=== PATIENT | male | born 1970 | race American Indian/Alaskan Native ===

== ENCOUNTER 2016-11-06 10:57 | Emergency (ER) | payer MEDICAID, OTHER ==
[2016-11-06] MEDS ORDERED: Sodium Chloride 0.9% 10 ML Syringe FLUSH PRN (11:35)
[2016-11-06] MEDS ORDERED: LORazepam 2 MG/ML MDV IVPUSH ONE (11:36)
--- NOTE | 2016-11-06 12:40 | EDM.PDOC ---
ED HPI HEAD INJURY - General Chief Complaint: Head Injury Stated Complaint: [facility] Time Seen by Provider: 11/06/16 11:19 Source of Information: Reports: Patient History Limitations: Reports: No limitations - History of Present Illness INITIAL COMMENTS - FREE TEXT/NARRATIVE: Patient is a 46-year-old male with a history of epilepsy who presents to the ED via ambulance with concerns of having 2 seizures this morning. First seizure occurred this morning while on the toilet. He describes the seizure as left- sided becomes rigid and right-sided shakes. Says it lasts only for a few minutes. He is a completely alert when this occurs. A second seizure occurred while the patient was wheeling himself back to his room via wheelchair and had a similar episode that lasted only for a few seconds. Patient did fall out of his wheelchair bumping the right lateral aspect of his forehead and scraping up his knees anteriorly. Patient again was alert throughout occurrence and really has no complaints at this time except small abrasions to knees and forehead. 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 When reviewing his chart it was actually a traumatic brain injury with intracranial hemorrhage. He has been a resident of the retirement for a approximately 1.5 year and receiving OT and PT. He has chronic pain and had just received the narcotic pain medication this morning prior to seizure. Patient denies fever/chills, SOB, Chest pain, N/V, headache, abdominal pain, or any additional complaints. States he has been having intermittent pain with urination. Past history: Traumatic brain injury, left-sided deficit, fusion lumbar spine, hypertension, epilepsy, chronic pain, low back pain, spondylosis, consultation, anemia, MRSA, left eye blurriness per patient,and hx of tuberculosis. MEDICATIONS:He is not on any anticoagulants. Takes keppra 500 mg twice a day, mirtazapine 30 mg at bedtime, metoprolol tartrate 25 mg twice a day, levalbuterol, baclofen 10 mg 3 times a day. He is on numerous OTC medications. 11/06/16 13:41 Timing/Duration: Reports: Constant Location: Reports: frontal (right forehead/superficial abrasion/minimal pain) Severity: mild Place of Occurrence: home Improves with: none Worsens with: none Context: Reports: fall (2nd to seizure) Associated Symptoms: Reports: seizure (Per patient), visual changes (blurred vision left eye chronic no new changes per patient). 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 (see below) (None stated) - Related Data Allergies/ADRs: Allergies Allergy/AdvReac Type Severity Reaction Status Date / Time No Known Allergies Allergy Verified 11/06/16 11:09 Home Meds: Home Meds Acetaminophen 650 mg PO Q6H PRN 12/17/15 [History] Baclofen 10 mg PO TID PRN 12/17/15 [History] Beta-Carotene [Beta Carotene] 2.5 tab PO DAILY 12/17/15 [History] Famotidine 40 mg PO DAILY 12/17/15 [History] Folic Acid 1 mg PO DAILY 12/17/15 [History] Lactobacillus Acidophilus [Acidophilus Lactobacillus] 1 each PO DAILY 12/17/15 [ History] Levalbuterol HCl 0.63 mg IH Q6H PRN 12/17/15 [History] Loperamide HCl [Loperamide] 2 mg PO 6XDAY PRN 12/17/15 [History] Metoprolol Tartrate 25 mg PO BID 12/17/15 [History] Mirtazapine 30 mg PO BEDTIME 12/17/15 [History] Sodium Bicarbonate 1,300 mg PO DAILY 12/17/15 [History] Sodium Chloride 2 gm PO BID 12/17/15 [History] Thiamine HCl [Vitamin B-1] 100 mg PO DAILY 12/17/15 [History] Triamcinolone Acetonide [Triamcinolone Acetonide 0.1% Crm] 1 applic TRDERM BID PRN 12/17/15 [History] levETIRAcetam [Keppra] 500 mg PO BID 12/17/15 [History] oxyCODONE 5 mg PO Q6H PRN 12/17/15 [History] Sennosides/Docusate Sodium [Senna Plus Tablet] 2 tab PO DAILY 11/06/16 [History] Past Medical History Cardiovascular History: Reports: Hypertension Genitourinary History: Reports: Urinary incontinence Musculoskeletal History: Reports: Other (see below) Other Musculoskeletal History: Hemiplegia Neurological History: Reports: Brain injury, CVA, Seizure, Other (see below) Other Neuro History: spinal fusion Psychiatric History: Reports: Addiction Other Endocrine/Metabolic History: hx of MRSA Hematologic History: Reports: Other (see below) Other Hematologic History: Hyponatremia - Infectious Disease History Infectious Disease History: Reports: C-difficile, Other (see below) Other Infectious Disease History: TB reactor Social & Family History - Family History Family Medical History: Noncontributory - Tobacco Use Smoking Status *Q: Never Smoker - Caffeine Use Caffeine Use: Reports: None - Recreational Drug Use Recreational Drug Use: No ED ROS GENERAL - Review of Systems Review Of Systems: See Below Constitutional: Denies: fever, chills, malaise, decreased appetite HEENT: Denies: Ear pain, Sinus problem, Throat pain, Vision change Respiratory: Denies: Shortness of Breath, Cough, Sputum Cardiovascular: Denies: Chest pain, Dyspnea on exertion, Orthopnea, Palpitations , PND, Syncope GI/Abdominal: Denies: Abdominal pain, Black stool, Bloody stool, Constipation, Diarrhea, Hematemesis, Nausea, Vomiting : Reports: dysuria (Intermittent). Denies: discharge, flank pain, frequency, hematuria, urgency Musculoskeletal: Reports: other (Superficial abrasions to the knees bilaterally with no pain/swelling) Neurological: Reports: Pre-Existing Deficit, Seizure (X2 per patient), Difficulty Walking (Pre-existing secondary to stroke in 2015 leaving him with left sided weakness). Denies: Confusion, Dizziness, Headache, Numbness, Paresthesia, Tingling, Trouble Speaking, Change in Speech ED EXAM, HEAD INJURY - Physical Exam Exam: See Below Exam Limited By: No limitations General Appearance: alert, WD/WN, no apparent distress Head: facial abrasions (Right forehead small superficial abrasion, minimal swelling no pain with palpation no bony antibiotics noted) Nexus Criteria: focal neurological deficit. No: posterior, midline cervical tenderness, evidence of intoxication, altered level of consciousness, painful distracting injuries Eyes: bilateral eye: EOMI, PERRL (aniscoria present left>right), vision changes (blurred vision to left eye, chronic, no new changes) Ears: normal external exam, hearing grossly normal Nose: normal inspection Throat/Mouth: Normal inspection, Normal oropharynx, Normal voice, No airway compromise Neck: non-tender, full range of motion, normal alignment, normal inspection Respiratory: no respiratory distress, lungs clear, normal breath sounds, no accessory muscle use, chest non-tender Cardiovascular: normal peripheral pulses, regular rate, rhythm GI/Abdominal Exam (Abbreviated): normal bowel sounds, soft, non tender, no organomegaly, no distention Back Exam: normal inspection, full range of motion. No: paraspinal tenderness, vertebral tenderness Extremities: pelvis stable, other (superficial abrasions to the right/left knee bilaterally. ). No: bony-point tenderness (with examination of upper/lower portion of the body. ), joint effusion, pain with movement, pedal edema, tenderness, unable to bear weight Neurologic: no motor/sensory deficits (no sensory), alert, normal mood/affect, oriented x 3, facial droop (Chronic no new changes), motor weakness (right>left , previous deficit from CVA 2014, no changes currently) Skin: Normal color, Warm/dry Course - Vital Signs Last Recorded V/S: Last Vital Signs Temp 98.5 F 11/06/16 11:05 Pulse 100 11/06/16 14:36 Resp 16 11/06/16 14:36 BP 134/93 H 11/06/16 14:36 Pulse Ox 94 L 11/06/16 14:36 - Orders/Labs/Meds Orders: Active Orders 24 hr Category Date Time Status Peripheral IV Care [RC] . DIRECTED Care 11/06/16 11:36 Active CULTURE URINE [RM] Stat Lab 11/06/16 13:47 Ordered KEPPRA [REF] Stat Lab 11/06/16 12:51 Received Sodium Chloride 0.9% [Saline Flush] Med 11/06/16 11:35 Active 10 ml FLUSH ASDIRECTED PRN Peripheral IV Insertion Adult [OM.PC] Stat Oth 11/06/16 11:36 Ordered Medication Orders Sodium Chloride (Saline Flush) 10 ml FLUSH ASDIRECTED PRN PRN Reason: Keep Vein Open Last Admin: 11/06/16 12:00 Dose: 10 ml Labs: Laboratory Tests 11/06/16 11/06/16 11/06/16 Range/Units 11:30 12:51 12:51 WBC 9.29 H (4.23-9.07) K/mm3 RBC 5.23 (4.63-6.08) M/mm3 Hgb 12.6 L (13.7-17.5) gm/L Hct 39.4 L (40.1-51.0) % MCV 75.3 L (79.0-92.2) fl MCH 24.1 L (25.7-32.2) pg MCHC 32.0 L (32.2-35.5) g/dl RDW Std Deviation 39.3 (35.1-43.9) fL Plt Count 210 (163-337) K/mm3 MPV 10.7 (9.4-12.3) fl Neut % (Auto) 81.3 H (34.0-67.9) % Lymph % (Auto) 9.3 L (21.8-53.1) % [place] % (Auto) 8.6 (5.3-12.2) % Eos % (Auto) 0.4 L (0.8-7.0) Baso % (Auto) 0.2 (0.1-1.2) % Neut # (Auto) 7.55 H (1.78-5.38) K/mm3 Lymph # (Auto) 0.86 L (1.32-3.57) K/mm3 [place] # (Auto) 0.80 (0.30-0.82) K/mm3 Eos # (Auto) 0.04 (0.04-0.54) K/mm3 Baso # (Auto) 0.02 (0.01-0.08) K/mm3 Manual Slide Review Abnormal smear Sodium 136 (136-145) mEq/L Potassium 4.0 (3.5-5.1) mEq/L Chloride 103 (98-107) mEq/L Carbon Dioxide 25 (21-32) mEq/L Anion Gap 12.0 (5-15) BUN 12 (7-18) mg/dL Creatinine 0.8 (0.7-1.3) mg/dL Est Cr Clr Drug Dosing 114.00 mL/min Estimated GFR (MDRD) > 60 (>60) mL/min BUN/Creatinine Ratio 15.0 (14-18) Glucose 108 H (74-106) mg/dL Calcium 8.7 (8.5-10.1) mg/dL Total Bilirubin 0.3 (0.2-1.0) mg/dL AST 21 (15-37) U/L ALT 21 (16-63) U/L Alkaline Phosphatase 114 (46-116) U/L Total Protein 7.0 (6.4-8.2) g/dl Albumin 3.5 (3.4-5.0) g/dl Globulin 3.5 gm/dL Albumin/Globulin Ratio 1.0 (1-2) Urine Color Yellow (Yellow) Urine Appearance Clear (Clear) Urine pH 6.5 (5.0-8.0) Ur Specific [place] 1.025 (1.005-1.030) Urine Protein 2+ H (Negative) Urine Glucose (UA) Negative (Negative) Urine Ketones Negative (Negative) Urine Occult Blood Negative (Negative) Urine Nitrite Negative (Negative) Urine Bilirubin Negative (Negative) Urine Urobilinogen 0.2 (0.2-1.0) Ur Leukocyte Esterase Negative (Negative) Urine RBC 0-5 (0-5) /hpf Urine WBC 0-5 (0-5) /hpf Ur Epithelial Cells Not Reportable Ur Squamous Epith Cells 0-5 (0-5) /hpf Urine Bacteria Moderate H (FEW) /hpf Urine Mucus Moderate H (FEW) /hpf Meds: Medications Generic Name Dose Route Start Last Admin Trade Name Freq PRN Reason Stop Dose Admin Sodium Chloride 10 ml 11/06/16 11:35 11/06/16 12:00 Saline Flush FLUSH 10 ml ASDIRECTED PRN Administration Keep Vein Open Discontinued Medications Generic Name Dose Route Start Last Admin Trade Name Freq PRN Reason Stop Dose Admin Lorazepam 0.5 mg 11/06/16 11:36 11/06/16 11:55 Ativan IVPUSH 11/06/16 11:37 0.5 mg ONETIME ONE Administration - Re-Assessments/Exams Free Text/Narrative Re-Assessment/Exam: Ordered CBC, C14, and UA. Labs reviewed with no concerning findings. Will obtain urine culture with moderate bacteria and mucus present. Ordered Keppra level . This is a send out and thus we'll reviewed by PCP on followup visit. Will discharge patient home with instructions to treat superficial abrasions. No changes in his medication list will be made at this time. The patient to see her PCP in the next week with reevaluation. Patient has had no seizures while he ED. Departure - Departure Time of Disposition: 13:50 Disposition: Home, Self-Care 01 Condition: good Clinical Impression: Seizures, Abrasions of multiple sites Head contusion Qualifiers: Encounter type: initial encounter Contusion of head detail: other part of head Qualified Code(s): S00.83XA - Contusion of other part of head, initial encounter Instructions: Facial or Scalp Contusion, [id number] Referrals: Bill Reed MD [Primary Care Provider] - Forms: ED Department Discharge Additional Instructions: Abrasions should be cleaned twice daily with soap and water, pat dry, reapply bacitracin ointment. Head contusion will subside over the next few days. Can apply ice to affected area, 4 times daily, do not apply directly on the skin. Patient should followup with PCP within the next week. Keppra level was obtained. This is a send out and should be available in the next 5 days. Return to the E.D. if he has status epilepticus, change in mentation, fever, n/v, or other neurological complaints. - My Orders Last 24 Hours: My Active Orders 11/06/16 11:35 Sodium Chloride 0.9% [Saline Flush] 10 ml FLUSH ASDIRECTED PRN 11/06/16 11:36 Peripheral IV Care [RC] . DIRECTED Peripheral IV Insertion Adult [OM.PC] Stat 11/06/16 12:51 KEPPRA [REF] Stat 11/06/16 13:47 CULTURE URINE [RM] Stat - Assessment/Plan Last 24 Hours: My Active Orders 11/06/16 11:35 Sodium Chloride 0.9% [Saline Flush] 10 ml FLUSH ASDIRECTED PRN 11/06/16 11:36 Peripheral IV Care [RC] . DIRECTED Peripheral IV Insertion Adult [OM.PC] Stat 11/06/16 12:51 KEPPRA [REF] Stat 11/06/16 13:47 CULTURE URINE [RM] Stat
[2016-11-06 14:38] VITALS: BP 134/93
== END 2016-11-06 14:30 | disposition home or self-care (01) ==
LOC: JD.ED 10:57
DX: G40.909 Epilepsy, unspecified, not intractable, without status epilepticus (principal); S00.83XA Contusion of other part of head, initial encounter; S80.212A Abrasion, left knee, initial encounter; S80.211A Abrasion, right knee, initial encounter; I10 Essential (primary) hypertension; Z86.73 Personal history of transient ischemic attack (TIA), and cerebral infarction without residual deficits; Z86.2 Personal history of diseases of the blood and blood-forming organs and certain disorders involving the immune mechanism; Z79.899 Other long term (current) drug therapy; W05.0XXA Fall from non-moving wheelchair, initial encounter
CPT/HCPCS: 36415; 80053; 80177; 81001; 85025; 87086; 96374; 99284; J2060; J7050; 99285-25

== ENCOUNTER 2018-03-13 02:57 | Inpatient (IN) | payer MEDICAID ==
[2018-03-13] MEDS ORDERED: LORazepam 2 MG/ML SDV ONE ×2 (03:04→03:15)
[2018-03-13] MEDS ORDERED: LORazepam 2 MG/ML SDV IVPUSH ONE (03:05)
[2018-03-13] MEDS ORDERED: Lidocaine 1% with EPINEPHrine 1:100,000 20 ML MDV ONE (04:50)
[2018-03-13] MEDS ORDERED: Lidocaine 1% with EPINEPHrine 1:100,000 20 ML MDV INJECT ONE (05:01)
[2018-03-13] MEDS ORDERED: Diphtheria,Pertussis(Acell),Tetanus Vaccine 0.5 ML SDV IM ONE (05:05)
[2018-03-13] MEDS ORDERED: Acetaminophen/HYDROcodone 325-5 MG Tab PO PRN (08:32)
[2018-03-13] MEDS ORDERED: Polyethylene Glycol 3350 Powder 17 GM Packet PO PRN (08:32)
[2018-03-13] MEDS ORDERED: hydrALAZINE 20 MG/ML SDV IVPUSH PRN (08:32)
[2018-03-13] MEDS ORDERED: Promethazine 12.5 MG in Sodium Chloride 0.9% 50 ML IV PRN (08:32)
[2018-03-13] MEDS ORDERED: Bisacodyl 5 MG Tab PO PRN (08:32)
[2018-03-13] MEDS ORDERED: Docusate Sodium 100 MG Cap PO PRN (08:32)
[2018-03-13] MEDS ORDERED: LORazepam 2 MG/ML SDV IVPUSH PRN (08:32)
[2018-03-13] MEDS ORDERED: Acetaminophen 325 MG Tab PO PRN (08:32)
[2018-03-13] MEDS ORDERED: Magnesium Hydroxide 400 MG/5 ML Susp 30 ML Cup PO PRN (08:32)
[2018-03-13] MEDS ORDERED: Ondansetron 4 MG/2 ML SDV IV PRN (08:32)
[2018-03-13] MEDS ORDERED: Albuterol/Ipratropium 3.0-0.5 MG/3 ML Neb Soln NEB PRN (08:32)
[2018-03-13] MEDS ORDERED: LORazepam 2 MG/ML SDV IV PRN (08:32)
[2018-03-13] MEDS ORDERED: HYDROmorphone 0.5 MG/0.5 ML Syringe IVPUSH PRN (08:32)
[2018-03-13] MEDS ORDERED: Metoprolol Tartrate 5 MG/5 ML SDV IVPUSH PRN (08:32)
[2018-03-13] MEDS ORDERED: Nicotine 21 MG/24 Hr Patch TRDERM PRN (09:00)
--- NOTE | 2018-03-13 10:01 | PCM.HP ---
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 He apparently had an unwitnessed seizure and fell, suffering several lacerations to his face. He does have a history of brain injury and seizure disorder. CT scan of the head and spine was ordered in the ER, which showed no new findings and no acute abnormalities, other than possible recent loss of tooth. Lacerations were sutured in the ER. Patient states it has been "a long while" since his last seizure. He says he took his seizure medications the evening prior to the event but that he vomited them up. He says he thinks he was given more medication afterwards. He is unable to state what medications he is taking. He is a poor historian due to confusion, being in post-ictal state and having history of brain injury. He understands that he has a seizure disorder and brain injury but is unable to elaborate further. It is unknown whether or not he lost consciousness. He is being admitted for further management of his seizure disorder following acute epileptic event. Onset of Symptoms: Reports: Today Symptom Onset Date: 03/13/18 Duration of Symptoms: Reports: Hour(s): Location: Reports: Head, Face Severity: Mild (Currently reports only mild headache) Associated Symptoms: Reports: Headaches Headache Pain Score (Numeric/FACES): 5 - Related Data Allergies/Adverse Reactions: Allergies Allergy/AdvReac Type Severity Reaction Status Date / Time No Known Allergies Allergy Verified 03/13/18 10:26 Home Medications: Home Meds Acetaminophen 650 mg PO BID 12/17/15 [History] Baclofen 10 mg PO DAILY 12/17/15 [History] Folic Acid 1 mg PO DAILY 12/17/15 [History] Lactobacillus Acidophilus [Acidophilus Lactobacillus] 1 each PO DAILY 12/17/15 [ History] Loperamide HCl [Loperamide] 2 mg PO 6XDAY PRN 12/17/15 [History] Metoprolol Tartrate 25 mg PO BID 12/17/15 [History] Mirtazapine 30 mg PO BEDTIME 12/17/15 [History] Sodium Chloride 2 gm PO BID 12/17/15 [History] levETIRAcetam [Keppra] 500 mg PO BID 12/17/15 [History] oxyCODONE 5 mg PO DAILY 12/17/15 [History] Sennosides/Docusate Sodium [Senna Plus Tablet] 2 tab PO DAILY 11/06/16 [History] Calcium Carbonate/Vitamin D3 [Calcium Carb 500 MG] 1,250 mg PO DAILY 03/13/18 [ History] Escitalopram [Lexapro] 10 mg PO DAILY 03/13/18 [History] Polyethylene Glycol 3350 [MiraLAX] 17 gm PO DAILY 03/13/18 [History] amLODIPine Besylate [Norvasc] 2.5 mg PO DAILY 03/13/18 [History] atorvaSTATin [Lipitor] 10 mg PO BEDTIME 03/13/18 [History] Past Medical History Cardiovascular History: Reports: Hypertension Genitourinary History: Reports: Urinary Incontinence Musculoskeletal History: Reports: Back Pain, Chronic, Other (See Below) Other Musculoskeletal History: Hemiplegia Neurological History: Reports: Brain Injury, CVA, Seizure, Other (See Below) Other Neuro History: spinal fusion Psychiatric History: Reports: Addiction, Other (See Below) Other Psychiatric History: alcohol dependence Other Endocrine/Metabolic History: hx of MRSA Hematologic History: Reports: Other (See Below) Other Hematologic History: Hyponatremia - Infectious Disease History Infectious Disease History: Reports: C-Difficile, MRSA, TB, Other (See Below) Other Infectious Disease History: MRSA to axilla, groin, nasal in 12/18/2014 based on documents from [place] - Past Surgical History Neurological Surgical History: Reports: C-Spine, Laminectomy, Lumbar Spine, Other (See Below) Other Neurological Surgeries/Procedures: spondylolysis Social & Family History - Family History Family Medical History: Noncontributory - Tobacco Use Smoking Status *Q: Former Smoker Used Tobacco, but Quit: Yes Month/Year Tobacco Last Used: 3 years - Caffeine Use Caffeine Use: Reports: None - Recreational Drug Use Recreational Drug Use: No H&P Review of Systems - Review of Systems: Review Of Systems: See Below General: Reports: No Symptoms HEENT: Reports: Headaches Pulmonary: Reports: No Symptoms Cardiovascular: Reports: No Symptoms Gastrointestinal: Reports: Vomiting (reports episode of vomiting yesterday) Genitourinary: Reports: No Symptoms Musculoskeletal: Reports: No Symptoms Skin: Reports: Wound (multiple facial lacerations) Psychiatric: Reports: Confusion Neurological: Reports: Confusion (post-ictal, hx of TBI), Headache, Pre- Existing Deficit (hx of TBI), Seizure Hematologic/Lymphatic: Reports: No Symptoms Immunologic: Reports: No Symptoms Review of Systems Comment:: Patient reports he feels well and has no symptoms other than a mild headache and some tenderness of facial lacerations. He reports an episode of vomiting yesterday evening but has not felt nausea or experienced vomiting since then. He had a seizure and fall last night. He reports no other symptoms or pain. Exam - Exam Exam: See Below - Vital Signs Vital Signs: Last Vital Signs Temp 98.0 F 03/13/18 09:51 Pulse 105 H 03/13/18 03:00 Resp 18 03/13/18 09:51 BP 132/89 03/13/18 09:51 Pulse Ox 95 03/13/18 09:51 Weight: 92.442 kg - Exam Quality Assessment: Supplemental Oxygen General: Alert, Cooperative HEENT: Conjunctiva Clear, EOMI, Hearing Intact, Nares Patent, Abnormal Pupils Neck: Supple Lungs: Clear to Auscultation, Normal Respiratory Effort Cardiovascular: Regular Rate, Regular Rhythm GI/Abdominal Exam: Normal Bowel Sounds, Soft, Non-Tender (Male) Exam: Deferred Rectal (Males) Exam: Deferred Extremities: Normal Inspection, Non-Tender, No Pedal Edema Peripheral Pulses: 2+: Radial (L), Radial (R), Posterior Tibial (L), Posterior Tibial (R) Skin: Warm, Dry, Intact, Wound (facial lacerations) Neurological: Other (left-sided hemiparesis from prior TBI) Psychiatric: Normal Affect, Normal Mood, Other (confusion, post-ictal, hx of TBI ) Physical Exam Comments:: Patient is pleasant and cooperative but somewhat confused, likely a chronic issue due to past history of TBI, exacerbated by post-ictal state. He has a forehead laceration, which is covered by a bandage, and lacerations on his nose and upper lip, which have been sutured. He has left-sided hemiparesis, unequal pupils, and a deviated septum, all chronic problems. No other abnormalities found upon exam. - Patient Data Lab Results Last 24 hrs: Laboratory Results - last 24 hr 03/13/18 03/13/18 Range/Units 03:29 03:29 WBC 5.62 (4.23-9.07) K/mm3 RBC 5.77 (4.63-6.08) M/mm3 Hgb 16.1 (13.7-17.5) gm/L Hct 49.2 (40.1-51.0) % MCV 85.3 (79.0-92.2) fl MCH 27.9 (25.7-32.2) pg MCHC 32.7 (32.2-35.5) g/dl RDW Std Deviation 41.3 (35.1-43.9) fL Plt Count 160 L (163-337) K/mm3 MPV 10.7 (9.4-12.3) fl Neutrophils % (Manual) 66 H (40-60) % Band Neutrophils % 0 (0-10) % Lymphocytes % (Manual) 24 (20-40) % Atypical Lymphs % 0 % Monocytes % (Manual) 10 (2-10) % Eosinophils % (Manual) 0 L (0.8-7.0) % Basophils % (Manual) 0 L (0.2-1.2) Platelet Estimate Adequate Plt Morphology Comment Normal RBC Morph Comment Normal Sodium 145 (136-145) mEq/L Potassium 3.6 (3.5-5.1) mEq/L Chloride 108 H (98-107) mEq/L Carbon Dioxide 22 (21-32) mEq/L Anion Gap 18.6 H (5-15) BUN 13 (7-18) mg/dL Creatinine 1.1 (0.7-1.3) mg/dL Est Cr Clr Drug Dosing 82.05 mL/min Estimated GFR (MDRD) > 60 (>60) mL/min BUN/Creatinine Ratio 11.8 L (14-18) Glucose 128 H (74-106) mg/dL Calcium 8.7 (8.5-10.1) mg/dL Total Bilirubin 0.3 (0.2-1.0) mg/dL AST 25 (15-37) U/L ALT 24 (16-63) U/L Alkaline Phosphatase 113 (46-116) U/L Total Protein 7.5 (6.4-8.2) g/dl Albumin 3.8 (3.4-5.0) g/dl Globulin 3.7 gm/dL Albumin/Globulin Ratio 1.0 (1-2) Result Diagrams: 03/13/18 03:29 03/13/18 03:29 - Problem List (1) Seizures SNOMED Code(s): 93969988 ICD Code: R56.9 - UNSPECIFIED CONVULSIONS Status: Acute Current Visit: No (2) Abrasions of multiple sites SNOMED Code(s): 171563345, 306958528 ICD Code: T14.8 - OTHER INJURY OF UNSPECIFIED BODY REGION * DO NOT USE * Status: Acute Current Visit: No Problem List Initiated/Reviewed/Updated: Yes Orders Last 24hrs: Active Orders 24 hr Category Date Time Status Admission Status [Patient Status] [ADT] Routine ADT 03/13/18 06:50 Active Cardiac Monitoring [RC] CONTINUOUS Care 03/13/18 08:33 Active Height and Weight [RC] 04 Care 03/13/18 08:32 Active Intake and Output [RC] QSHIFT Care 03/13/18 08:33 Active Oxygen Therapy [RC] PRN Care 03/13/18 08:32 Active RT Aerosol Therapy [RC] ASDIRECTED Care 03/13/18 08:35 Active Up With Assistance [RC] ASDIRECTED Care 03/13/18 08:32 Active Up ad Jayna [RC] ASDIRECTED Care 03/13/18 08:32 Active VTE/DVT Education [RC] PER UNIT ROUTINE Care 03/13/18 08:32 Active Vaccines to be Administered [RC] PER UNIT ROUTINE Care 03/13/18 05:05 Active Vital Signs [RC] Q4HR Care 03/13/18 08:32 Active Regular Diet [DIET] Diet 03/13/18 Lunch Active Cervical Spine wo Cont [CT] Stat Exams 03/13/18 03:38 Taken Head wo Cont [CT] Stat Exams 03/13/18 03:38 Taken Max Facial Sinus wo Cont [CT] Stat Exams 03/13/18 03:38 Taken LEVETIRACETAM, S [REF] Stat Lab 03/13/18 03:29 Received Acetaminophen [Tylenol] Med 03/13/18 08:32 Active 650 mg PO Q4H PRN Acetaminophen/HYDROcodone [[place] 325-5 MG] Med 03/13/18 08:32 Active 1 tab PO Q4H PRN Albuterol/Ipratropium [DuoNeb 3.0-0.5 MG/3 ML] Med 03/13/18 08:32 Active 3 ml NEB Q4H PRN Bisacodyl [Dulcolax] Med 03/13/18 08:32 Active 5 mg PO DAILY PRN Docusate Sodium [Colace] Med 03/13/18 08:32 Active 100 mg PO BID PRN Docusate Sodium/Sennosides [Senna Plus] Med 03/13/18 08:32 Active 1 tab PO BID PRN Enoxaparin [Lovenox] Med 03/13/18 09:00 Active 40 mg SUBCUT DAILY HYDROmorphone [Dilaudid] Med 03/13/18 08:32 Active 0.5 mg IVPUSH Q2H PRN LORazepam [Ativan] Med 03/13/18 08:32 Active 1 mg IV Q6H PRN LORazepam [Ativan] Med 03/13/18 08:32 Active 2 mg IVPUSH Q4H PRN Magnesium Hydroxide [Milk of Magnesia] Med 03/13/18 08:32 Active 30 ml PO Q12H PRN Magnesium Rep Pharmacy to Dose [Pharmacy to Dose - Med 03/13/18 08:45 Active Magnesium Replacement] 0 dose .XX ASDIRECTED PRN Metoprolol Tartrate [Lopressor] Med 03/13/18 08:32 Active 5 mg IVPUSH Q4H PRN Nicotine [Habitrol] Med 03/13/18 09:00 Active 21 mg TRDERM DAILY PRN Ondansetron [Zofran] Med 03/13/18 08:32 Active 4 mg IV Q6H PRN Polyethylene Glycol 3350 [MiraLAX] Med 03/13/18 08:32 Active 17 gm PO DAILY PRN Potassium Chloride [Klor-Con M20] Med 03/13/18 09:00 Active 40 meq PO Q4H Potassium Rep Pharmacy to Dose [Pharmacy to Dose - Med 03/13/18 08:45 Active Potassium Replacement] 0 dose .XX ASDIRECTED PRN Promethazine [Phenergan] 12.5 mg Med 03/13/18 08:32 Active Sodium Chloride 0.9% [Normal Saline] 50 ml IV Q6H Remove Patch Med 03/14/18 09:00 Active 0 ea TRDERM DAILY Sodium Chloride 0.9% [Normal Saline] 1,000 ml Med 03/13/18 08:45 Active IV ASDIRECTED hydrALAZINE [Apresoline] Med 03/13/18 08:32 Active 20 mg IVPUSH Q4H PRN Resuscitation Status Routine Resus Stat 03/13/18 08:32 Ordered Medication Orders Acetaminophen (Tylenol) 650 mg PO Q4H PRN PRN Reason: Pain (Mild 1-3)/fever Hydrocodone Bitart/Acetaminophen ([place] 325-5 Mg) 1 tab PO Q4H PRN PRN Reason: Pain (moderate 4-6) Albuterol/Ipratropium (Duoneb 3.0-0.5 Mg/3 Ml) 3 ml NEB Q4H PRN PRN Reason: Shortness Of Breath/wheezing Bisacodyl (Dulcolax) 5 mg PO DAILY PRN PRN Reason: Constipation Docusate Sodium (Colace) 100 mg PO BID PRN PRN Reason: Constipation Enoxaparin Sodium (Lovenox) 40 mg SUBCUT DAILY DEVORA Hydralazine HCl (Apresoline) 20 mg IVPUSH Q4H PRN PRN Reason: Hypertension Hydromorphone HCl (Dilaudid) 0.5 mg IVPUSH Q2H PRN PRN Reason: Pain (severe 7-10) Promethazine HCl 12.5 mg/ (Sodium Chloride) 50.5 mls @ 100 mls/hr IV Q6H PRN PRN Reason: Nausea/Vomiting Sodium Chloride (Normal Saline) 1,000 mls @ 125 mls/hr IV ASDIRECTED DEVORA Lorazepam (Ativan) 2 mg IVPUSH Q4H PRN PRN Reason: Seizures Lorazepam (Ativan) 1 mg IV Q6H PRN PRN Reason: Anxiety Magnesium Hydroxide (Milk Of Magnesia) 30 ml PO Q12H PRN PRN Reason: Constipation Magnesium Sulfate (Pharmacy To Dose - Magnesium Replacement) 0 dose .XX ASDIRECTED PRN PRN Reason: RX TO WATCH MAG LEVELS Metoprolol Tartrate (Lopressor) 5 mg IVPUSH Q4H PRN PRN Reason: Tachycardia Miscellaneous Information (Remove Patch) 0 ea TRDERM DAILY [facility] Nicotine (Habitrol) 21 mg TRDERM DAILY PRN PRN Reason: Nicotine Dependence Ondansetron HCl (Zofran) 4 mg IV Q6H PRN PRN Reason: Nausea/Vomiting Polyethylene Glycol (Miralax) 17 gm PO DAILY PRN PRN Reason: Constipation Potassium Chloride (Pharmacy To Dose - Potassium Replacement) 0 dose .XX ASDIRECTED PRN PRN Reason: RX TO WATCH K LEVELS Potassium Chloride (Klor-Con M20) 40 meq PO Q4H DEVORA Stop: 03/13/18 13:01 Senna/Docusate Sodium (Senna Plus) 1 tab PO BID PRN PRN Reason: Constipation Assessment/Plan Comment:: Acute on Chronic - Seizure Disorder * Apparent seizure with fall/injury at [facility] facility early 03/13 * Event was unwitnessed - unknown if LOC * Prior history of seizure disorder and brain injury * Likely secondary to inadequate Keppra - inability to take medications * ER workup * Vitals - initial tachycardia and hypertension; now stable * Initial labs - elevated anion gap, reduced BUN/Cr ratio; mildly elevated glucose; no other abnormal findings * Head/spine CT showed no new abnormalities * Facial lacerations were sutured * dtap vaccine administered * Admitted to ICU for further management * IVF, supplemental O2, telemetry * Lorazepam for seizures * DVT prophylaxis enoxaparin * Screening to determine blood levels of Keppra pending * UA ordered to r/o UTI; drug and alcohol screening Status post-fall * Secondary to acute seizure * Multiple facial lacerations * Possible head injury r/o - CT was benign * Fall precautions Facial lacerations * Secondary to traumatic fall * Lacerations on forehead, nose, and upper lip * Received treatment in the emergency department * Continue wound care [place], [place]-3. Dr. Allan has examined the patient and reviewed the note. <Jailene Allan T - Last Filed: 03/13/18 17:35> H&P History of Present Illness - General Admit Problem/Dx: Admission Diagnosis/Problem Admission Diagnosis/Problem Seizure disorder Exam - Vital Signs Vital Signs: Last Vital Signs Temp 36.9 C 03/13/18 15:21 Pulse 105 H 03/13/18 03:00 Resp 14 03/13/18 15:21 BP 146/97 H 03/13/18 15:21 Pulse Ox 95 03/13/18 15:21 - Patient Data Lab Results Last 24 hrs: Laboratory Results - last 24 hr 03/13/18 03/13/18 03/13/18 Range/Units 03:18 03:29 03:29 WBC 5.62 (4.23-9.07) K/mm3 RBC 5.77 (4.63-6.08) M/mm3 Hgb 16.1 (13.7-17.5) gm/L Hct 49.2 (40.1-51.0) % MCV 85.3 (79.0-92.2) fl MCH 27.9 (25.7-32.2) pg MCHC 32.7 (32.2-35.5) g/dl RDW Std Deviation 41.3 (35.1-43.9) fL Plt Count 160 L (163-337) K/mm3 MPV 10.7 (9.4-12.3) fl Neutrophils % (Manual) 66 H (40-60) % Band Neutrophils % 0 (0-10) % Lymphocytes % (Manual) 24 (20-40) % Atypical Lymphs % 0 % Monocytes % (Manual) 10 (2-10) % Eosinophils % (Manual) 0 L (0.8-7.0) % Basophils % (Manual) 0 L (0.2-1.2) Platelet Estimate Adequate Plt Morphology Comment Normal RBC Morph Comment Normal Sodium 145 (136-145) mEq/L Potassium 3.6 (3.5-5.1) mEq/L Chloride 108 H (98-107) mEq/L Carbon Dioxide 22 (21-32) mEq/L Anion Gap 18.6 H (5-15) BUN 13 (7-18) mg/dL Creatinine 1.1 (0.7-1.3) mg/dL Est Cr Clr Drug Dosing 82.05 mL/min Estimated GFR (MDRD) > 60 (>60) mL/min BUN/Creatinine Ratio 11.8 L (14-18) Glucose 128 H (74-106) mg/dL Calcium 8.7 (8.5-10.1) mg/dL Total Bilirubin 0.3 (0.2-1.0) mg/dL AST 25 (15-37) U/L ALT 24 (16-63) U/L Alkaline Phosphatase 113 (46-116) U/L Total Protein 7.5 (6.4-8.2) g/dl Albumin 3.8 (3.4-5.0) g/dl Globulin 3.7 gm/dL Albumin/Globulin Ratio 1.0 (1-2) Urine Color (Yellow) Urine Appearance (Clear) Urine pH (5.0-8.0) Ur Specific [place] (1.005-1.030) Urine Protein (Negative) Urine Glucose (UA) (Negative) Urine Ketones (Negative) Urine Occult Blood (Negative) Urine Nitrite (Negative) Urine Bilirubin (Negative) Urine Urobilinogen (0.2-1.0) Ur Leukocyte Esterase (Negative) Urine RBC (0-5) /hpf Urine WBC (0-5) /hpf Ur Epithelial Cells (0-5) /hpf Urine Bacteria (FEW) /hpf Urine Mucus (FEW) /hpf Urine Opiates Screen (NEGATIVE) Ur Buprenorphine Scrn (NEGATIVE) Ur Oxycodone Screen (NEGATIVE) Urine Methadone Screen (NEGATIVE) Ur Propoxyphene Screen (NEGATIVE) Ur Barbiturates Screen (NEGATIVE) Ur Tricyclics Screen (NEGATIVE) Ur Phencyclidine Scrn (NEGATIVE) Ur Amphetamine Screen (NEGATIVE) U Methamphetamines Scrn (NEGATIVE) U Benzodiazepines Scrn (NEGATIVE) U Cocaine Metab Screen (NEGATIVE) U Marijuana (THC) Screen (NEGATIVE) Ethyl Alcohol 0.00 (0.00) gm% 03/13/18 03/13/18 Range/Units 15:00 15:00 WBC (4.23-9.07) K/mm3 RBC (4.63-6.08) M/mm3 Hgb (13.7-17.5) gm/L Hct (40.1-51.0) % MCV (79.0-92.2) fl MCH (25.7-32.2) pg MCHC (32.2-35.5) g/dl RDW Std Deviation (35.1-43.9) fL Plt Count (163-337) K/mm3 MPV (9.4-12.3) fl Neutrophils % (Manual) (40-60) % Band Neutrophils % (0-10) % Lymphocytes % (Manual) (20-40) % Atypical Lymphs % % Monocytes % (Manual) (2-10) % Eosinophils % (Manual) (0.8-7.0) % Basophils % (Manual) (0.2-1.2) Platelet Estimate Plt Morphology Comment RBC Morph Comment Sodium (136-145) mEq/L Potassium (3.5-5.1) mEq/L Chloride (98-107) mEq/L Carbon Dioxide (21-32) mEq/L Anion Gap (5-15) BUN (7-18) mg/dL Creatinine (0.7-1.3) mg/dL Est Cr Clr Drug Dosing mL/min Estimated GFR (MDRD) (>60) mL/min BUN/Creatinine Ratio (14-18) Glucose (74-106) mg/dL Calcium (8.5-10.1) mg/dL Total Bilirubin (0.2-1.0) mg/dL AST (15-37) U/L ALT (16-63) U/L Alkaline Phosphatase (46-116) U/L Total Protein (6.4-8.2) g/dl Albumin (3.4-5.0) g/dl Globulin gm/dL Albumin/Globulin Ratio (1-2) Urine Color Yellow (Yellow) Urine Appearance Clear (Clear) Urine pH 7.0 (5.0-8.0) Ur Specific [place] 1.025 (1.005-1.030) Urine Protein 2+ H (Negative) Urine Glucose (UA) 2+ H (Negative) Urine Ketones Negative (Negative) Urine Occult Blood Negative (Negative) Urine Nitrite Negative (Negative) Urine Bilirubin Negative (Negative) Urine Urobilinogen 0.2 (0.2-1.0) Ur Leukocyte Esterase Negative (Negative) Urine RBC Not seen (0-5) /hpf Urine WBC 0-5 (0-5) /hpf Ur Epithelial Cells 0-5 (0-5) /hpf Urine Bacteria Not seen (FEW) /hpf Urine Mucus Not seen (FEW) /hpf Urine Opiates Screen Negative (NEGATIVE) Ur Buprenorphine Scrn Negative (NEGATIVE) Ur Oxycodone Screen Negative (NEGATIVE) Urine Methadone Screen Negative (NEGATIVE) Ur Propoxyphene Screen Negative (NEGATIVE) Ur Barbiturates Screen Negative (NEGATIVE) Ur Tricyclics Screen Negative (NEGATIVE) Ur Phencyclidine Scrn Negative (NEGATIVE) Ur Amphetamine Screen Negative (NEGATIVE) U Methamphetamines Scrn Negative (NEGATIVE) U Benzodiazepines Scrn Presumptive positive H (NEGATIVE) U Cocaine Metab Screen Negative (NEGATIVE) U Marijuana (THC) Screen Negative (NEGATIVE) Ethyl Alcohol (0.00) gm% Result Diagrams: 03/13/18 03:29 03/13/18 03:29 Orders Last 24hrs: Active Orders 24 hr Category Date Time Status Admission Status [Patient Status] [ADT] Routine ADT 03/13/18 06:50 Active Cardiac Monitoring [RC] CONTINUOUS Care 03/13/18 08:33 Active Height and Weight [RC] 04 Care 03/13/18 08:32 Active Intake and Output [RC] 04,16 Care 03/13/18 08:33 Active Oxygen Therapy [RC] PRN Care 03/13/18 08:32 Active Oxygen Therapy [RC] PRN Care 03/13/18 17:31 Active RT Aerosol Therapy [RC] ASDIRECTED Care 03/13/18 08:35 Active Up With Assistance [RC] ASDIRECTED Care 03/13/18 08:32 Active Up ad Jayna [RC] ASDIRECTED Care 03/13/18 08:32 Active VTE/DVT Education [RC] PER UNIT ROUTINE Care 03/13/18 08:32 Active VTE/DVT Education [RC] PER UNIT ROUTINE Care 03/13/18 17:31 Active Vaccines to be Administered [RC] PER UNIT ROUTINE Care 03/13/18 05:05 Active Vital Signs [RC] Q4H Care 03/13/18 17:31 Active Vital Signs [RC] Q4HR Care 03/13/18 08:32 Active Consult to Case Management [CONS] Routine Cons 03/13/18 17:31 Active Consult to Watch And Clock Repair Clerk [CONS] Routine Cons 03/13/18 17:31 Active OT Evaluation and Treatment [CONS] Routine Cons 03/13/18 17:31 Active PT Evaluation and Treatment [CONS] Routine Cons 03/13/18 17:31 Active Regular Diet [DIET] Diet 03/13/18 Lunch Active Cervical Spine wo Cont [CT] Stat Exams 03/13/18 03:38 Taken Head wo Cont [CT] Stat Exams 03/13/18 03:38 Taken Max Facial Sinus wo Cont [CT] Stat Exams 03/13/18 03:38 Taken BASIC METABOLIC PANEL,BMP [CHEM] AM Lab 03/14/18 05:11 Ordered BASIC METABOLIC PANEL,BMP [CHEM] AM Lab 03/15/18 05:11 Ordered BASIC METABOLIC PANEL,BMP [CHEM] AM Lab 03/16/18 05:11 Ordered BASIC METABOLIC PANEL,BMP [CHEM] AM Lab 03/17/18 05:11 Ordered BASIC METABOLIC PANEL,BMP [CHEM] AM Lab 03/18/18 05:11 Ordered BENZODIAZEPINE CONF (LCMSMS) Stat Lab 03/13/18 15:00 Received CBC WITH AUTO DIFF [HEME] AM Lab 03/14/18 05:11 Ordered CBC WITH AUTO DIFF [HEME] AM Lab 03/15/18 05:11 Ordered CBC WITH AUTO DIFF [HEME] AM Lab 03/16/18 05:11 Ordered CBC WITH AUTO DIFF [HEME] AM Lab 03/17/18 05:11 Ordered CBC WITH AUTO DIFF [HEME] AM Lab 03/18/18 05:11 Ordered DRUG SCREEN, URINE REFLEX [URCHEM] Stat Lab 03/13/18 15:00 Ordered LEVETIRACETAM, S [REF] Stat Lab 03/13/18 03:29 Received MAGNESIUM [CHEM] AM Lab 03/14/18 05:11 Ordered MAGNESIUM [CHEM] AM Lab 03/15/18 05:11 Ordered MAGNESIUM [CHEM] AM Lab 03/16/18 05:11 Ordered MAGNESIUM [CHEM] AM Lab 03/17/18 05:11 Ordered MAGNESIUM [CHEM] AM Lab 03/18/18 05:11 Ordered URINALYSIS W/MICROSCOPIC [UA W/MICROSCOPIC] [URIN] Stat Lab 03/13/18 15:00 Ordered Acetaminophen [Tylenol] Med 03/13/18 08:32 Active 650 mg PO Q4H PRN Acetaminophen/HYDROcodone [[place] 325-5 MG] Med 03/13/18 08:32 Active 1 tab PO Q4H PRN Albuterol/Ipratropium [DuoNeb 3.0-0.5 MG/3 ML] Med 03/13/18 08:32 Active 3 ml NEB Q4H PRN Bisacodyl [Dulcolax] Med 03/13/18 08:32 Active 5 mg PO DAILY PRN Docusate Sodium [Colace] Med 03/13/18 08:32 Active 100 mg PO BID PRN Docusate Sodium/Sennosides [Senna Plus] Med 03/13/18 08:32 Active 1 tab PO BID PRN Enoxaparin [Lovenox] Med 03/13/18 09:00 Active 40 mg SUBCUT DAILY HYDROmorphone [Dilaudid] Med 03/13/18 08:32 Active 0.5 mg IVPUSH Q2H PRN LORazepam [Ativan] Med 03/13/18 08:32 Active 1 mg IV Q6H PRN LORazepam [Ativan] Med 03/13/18 08:32 Active 2 mg IVPUSH Q4H PRN Magnesium Hydroxide [Milk of Magnesia] Med 03/13/18 08:32 Active 30 ml PO Q12H PRN Magnesium Rep Pharmacy to Dose [Pharmacy to Dose - Med 03/13/18 08:45 Active Magnesium Replacement] 0 dose .XX ASDIRECTED PRN Metoprolol Tartrate [Lopressor] Med 03/13/18 08:32 Active 5 mg IVPUSH Q4H PRN Nicotine [Habitrol] Med 03/13/18 09:00 Active 21 mg TRDERM DAILY PRN Ondansetron [Zofran] Med 03/13/18 08:32 Active 4 mg IV Q6H PRN Polyethylene Glycol 3350 [MiraLAX] Med 03/13/18 08:32 Active 17 gm PO DAILY PRN Potassium Rep Pharmacy to Dose [Pharmacy to Dose - Med 03/13/18 08:45 Active Potassium Replacement] 0 dose .XX ASDIRECTED PRN Promethazine [Phenergan] 12.5 mg Med 03/13/18 08:32 Active Sodium Chloride 0.9% [Normal Saline] 50 ml IV Q6H Remove Patch Med 03/14/18 09:00 Active 0 ea TRDERM DAILY Sodium Chloride 0.9% [Normal Saline] 1,000 ml Med 03/13/18 08:45 Active IV ASDIRECTED hydrALAZINE [Apresoline] Med 03/13/18 08:32 Active 20 mg IVPUSH Q4H PRN Resuscitation Status Routine Resus Stat 03/13/18 08:32 Ordered Medication Orders Acetaminophen (Tylenol) 650 mg PO Q4H PRN PRN Reason: Pain (Mild 1-3)/fever Hydrocodone Bitart/Acetaminophen ([place] 325-5 Mg) 1 tab PO Q4H PRN PRN Reason: Pain (moderate 4-6) Albuterol/Ipratropium (Duoneb 3.0-0.5 Mg/3 Ml) 3 ml NEB Q4H PRN PRN Reason: Shortness Of Breath/wheezing Bisacodyl (Dulcolax) 5 mg PO DAILY PRN PRN Reason: Constipation Docusate Sodium (Colace) 100 mg PO BID PRN PRN Reason: Constipation Enoxaparin Sodium (Lovenox) 40 mg SUBCUT DAILY [facility] Last Admin: 03/13/18 10:17 Dose: 40 mg Hydralazine HCl (Apresoline) 20 mg IVPUSH Q4H PRN PRN Reason: Hypertension Hydromorphone HCl (Dilaudid) 0.5 mg IVPUSH Q2H PRN PRN Reason: Pain (severe 7-10) Promethazine HCl 12.5 mg/ (Sodium Chloride) 50.5 mls @ 100 mls/hr IV Q6H PRN PRN Reason: Nausea/Vomiting Sodium Chloride (Normal Saline) 1,000 mls @ 125 mls/hr IV ASDIRECTED [facility] Last Admin: 03/13/18 15:19 Dose: 125 mls/hr Lorazepam (Ativan) 2 mg IVPUSH Q4H PRN PRN Reason: Seizures Lorazepam (Ativan) 1 mg IV Q6H PRN PRN Reason: Anxiety Magnesium Hydroxide (Milk Of Magnesia) 30 ml PO Q12H PRN PRN Reason: Constipation Magnesium Sulfate (Pharmacy To Dose - Magnesium Replacement) 0 dose .XX ASDIRECTED PRN PRN Reason: RX TO WATCH MAG LEVELS Metoprolol Tartrate (Lopressor) 5 mg IVPUSH Q4H PRN PRN Reason: Tachycardia Miscellaneous Information (Remove Patch) 0 ea TRDERM DAILY [facility] Nicotine (Habitrol) 21 mg TRDERM DAILY PRN PRN Reason: Nicotine Dependence Ondansetron HCl (Zofran) 4 mg IV Q6H PRN PRN Reason: Nausea/Vomiting Polyethylene Glycol (Miralax) 17 gm PO DAILY PRN PRN Reason: Constipation Potassium Chloride (Pharmacy To Dose - Potassium Replacement) 0 dose .XX ASDIRECTED PRN PRN Reason: RX TO WATCH K LEVELS Senna/Docusate Sodium (Senna Plus) 1 tab PO BID PRN PRN Reason: Constipation Assessment/Plan Comment:: The patient was seen and examined in convert with the medical student. The admission assessment and plans were discussed and agreed upon with me.
[2018-03-13] MEDS: Enoxaparin 40 MG/0.4 ML Syringe SUBCUT SCH (10:17)
[2018-03-13] MEDS: Potassium Chloride 20 MEQ Tab.ER PO SCH ×2 (10:18→12:37)
--- NOTE | 2018-03-13 13:22 | ER ---
REASON FOR EMERGENCY ROOM ADMISSION: Seizure with facial trauma. HISTORY OF PRESENT ILLNESS: This 47-year-old gentleman has been a resident of the [facility] in [place], [place]. Approximately 2 years ago, he suffered a traumatic brain injury, which left him with a left-sided hemiparesis, and as a sequela, he has had a seizure disorder, for which he has been taking Keppra 500 mg b.i.d. His last seizure was 5 months ago, and it appears, in reviewing his history, that when he does have seizures, they tend to be focal seizures with retained awareness or simple partial seizures as he is somewhat awake and aware of the seizure activity when it is taking place. Indeed, this evening at the alf, he had a witnessed seizure where he had some tonic-clonic movement and he struck his face. He fell striking his face on the floor, sustaining significant bleeding from a sizable forehead laceration as well as 2 smaller lacerations over the bridge of his nose and his right upper lip area. He was not incontinent of urine and it does not sound like he does normally get incontinent of urine. He had no antecedent history of trauma prior to this. He was brought to the emergency room, and en route, he did not have any seizures. In transport, he was maintained on oxygen and he was stable in the process. However, shortly after arriving here, when he was being assessed, he had a seizure with tonic-clonic activity, more active on the left side than on the right. This involved upper and lower extremities twitching and jerking as well as facial contortions of twitching and jerking at same time. His eyes were open and he did express a few words and sentences throughout the whole process and was aware that it was going on. He did relay just before the seizure that he was having an aura and expressed the notion that he knew he was going to have another seizure. As soon as the seizure activity took place, we secured an IV in his right arm and he was given 3 mg of Ativan IV push. Within about 3 minutes or 4 minutes, the seizure activity subsided, and the seizure activity resolved. Throughout the whole process, he was given 100% oxygen, his airway was intact, and he did not have any loss of airway. Postictally, he actually returned to his baseline in terms of his communication and subsequently became somewhat sleepy, but arousable, and communicated appropriately afterwards. The patient is said to be a DNR. PAST MEDICAL HISTORY: Significant for: 1. Traumatic brain injury as described above with left-sided hemiparesis and a posttraumatic seizure disorder. 2. Lumbar spine fusion. 3. History of epilepsy. 4. Low back pain. 5. History of spondylosis. 6. History of methicillin-resistant Staphylococcus aureus. 7. History of tuberculosis. CURRENT MEDICATIONS: He is not on anticoagulants. He does take Keppra 500 mg per day, mirtazapine 30 mg at bedtime, metoprolol tartrate 25 mg b.i.d. levalbuterol p.r.n., baclofen 10 mg t.i.d. He takes vitamins, sodium bicarb, and stool softeners. FAMILY HISTORY: Unavailable. REVIEW OF SYSTEMS: Pertinent positives and negatives as listed in the HPI. PHYSICAL EXAMINATION: GENERAL: At the time he was examined, he was postictal, but cooperative and verbalizing appropriately. HEENT: He had an L-shaped laceration over his forehead measuring 5 cm transversely and 2.5 cm in a vertical direction. He also had a 1.5 cm laceration above his right lip and a 0.5 cm laceration over the bridge of his nose with some associated swelling. Both TMs show no hemotympanum. Pupils show anisocoria with his left pupil larger than the right. His right pupil reacts more to light than his left, but his left does react albeit sluggishly. Nose; he does have swelling over the bridge of his nose, but both nasal passages appear to be patent. Oral cavity; he may have lost a tooth, an incisor on front. It is difficult to tell, he will not let me examine his mouth. His right lip is swollen. NECK: Nontender. No external evidence of trauma. Nontender to palpation. CHEST: Clear to auscultation. CARDIAC: Regular rate without murmur. ABDOMEN: Soft and nontender. No palpable masses. EXTREMITIES: He has normal pulses. No edema. Good capillary refill. No external evidence of trauma. BACK: No external evidence of trauma. No palpable tenderness. NEUROLOGIC: He has some facial asymmetry with what appears to be a left-sided facial droop, although it is difficult because of the swelling to really get a handle on this. He is hyperreflexic with both patellar reflexes. He has demonstrable weakness in his left upper and his left lower extremity compared to the right side. Sensation is not tested. He is oriented x3. FURTHER EMERGENCY ROOM COURSE: Following his Ativan and upon the completion of his seizure, no further events took place. The following lab results were obtained. A CBC which was normal apart from a platelet count of 160,000. A CMP demonstrated an anion gap of 18, and his electrolytes are normal except for a slight elevation of chloride at 108. His liver enzymes are normal. His urine was unremarkable. A Keppra level was 10, so this was not very low. A CT scan of his head, facial bones, and C- spine was obtained. CT of his head showed an old nasal arch deformity but no facial bone fractures. His head shows encephalomalacia over the distribution of the right middle cerebral artery. This is stable in size when compared to his previous study. He also has signs of status post right parietal craniotomy. No acute process was identified in his brain. C-spine showed some spondylosis at C2 through C7, but no acute injury, fracture, or dislocation. IMPRESSION: 1. Seizure episodes x2 last night and early this morning with a history of posttraumatic brain injury related seizures that appeared to be focal seizures with retained awareness. 2. Lacerations as described above. PLAN: He did receive a DT booster because his last one was in 2007. Using aseptic technique, his lacerations were cleaned and approximately 12 mL of 1% Xylocaine with epinephrine was used to achieve local anesthesia. Fourteen interrupted 4-0 Ethilon sutures were used to approximate the skin. There were a few tags of skin that appeared to be devitalized and these were excised sharply. Approximation was satisfactory and hemostasis was good. There is some residual swelling over the forehead, which is to be expected. He will need to be admitted to the hospital and observed for a period of time and continued on his Keppra. I will be in touch with Dr. Allan, the hospitalist to get him admitted and for observation. The patient understands and agrees with this plan. GERARDO /[id number] SOURAV
[2018-03-13] MEDS: Sodium Chloride 0.9% 1,000 ML IV SCH ×2 (15:19→22:57)
[2018-03-13] MEDS ORDERED: Loperamide 2 MG Cap PO PRN (22:05)
[2018-03-14] MEDS: Sodium Chloride 0.9% 1,000 ML IV SCH (06:14)
[2018-03-14] MEDS: Acetaminophen 325 MG Tab PO SCH ×2 (08:20→20:04)
[2018-03-14] MEDS: oxyCODONE 5 MG Tab PO SCH (08:20)
[2018-03-14] MEDS: Baclofen 10 MG Tab PO SCH (08:22)
[2018-03-14] MEDS: Folic Acid 1 MG Tab PO SCH (08:22)
[2018-03-14] MEDS: Saccharomyces Boulardii (Probiotic) 250 MG Cap PO SCH (08:22)
[2018-03-14] MEDS: levETIRAcetam 500 MG Tab PO SCH ×2 (08:22→20:05)
[2018-03-14] MEDS: Metoprolol Tartrate 25 MG Tab PO SCH ×2 (08:22→20:05)
[2018-03-14] MEDS: Calcium Carbonate/Vitamin D3 600 MG-200 Units Tab PO SCH (08:22)
[2018-03-14] MEDS: amLODIPine 2.5 MG Tab PO SCH (08:22)
[2018-03-14] MEDS: Polyethylene Glycol 3350 Powder 17 GM Packet PO SCH (08:23)
[2018-03-14] MEDS: Enoxaparin 40 MG/0.4 ML Syringe SUBCUT SCH (08:23)
--- NOTE | 2018-03-14 09:20 | PCM.PN ---
- General Info Date of Service: 03/14/18 Admission Dx/Problem (Free Text): Admission Diagnosis/Problem Admission Diagnosis/Problem Seizure disorder Subjective Update: Follow Up Functional Status: Reports: Pain Controlled, Tolerating Diet, Ambulating, Urinating. Denies: New Symptoms - Review of Systems General: Denies: Fever, Weakness, Fatigue, Malaise, Chills HEENT: Reports: No Symptoms Pulmonary: Denies: Shortness of Breath Cardiovascular: Denies: Palpitations, Dyspnea on Exertion, Lightheadedness Gastrointestinal: Denies: Abdominal Pain, Decreased Appetite, Nausea, Vomiting Genitourinary: Reports: No Symptoms Musculoskeletal: Reports: No Symptoms Skin: Denies: Cyanosis, Pallor, Diaphoresis, Rash Neurological: Reports: Gait Disturbance. Denies: Confusion, Dizziness, Difficulty Walking, Weakness Psychiatric: Denies: Depression, Anxiety, Agitation, Hallucinations Systems Review Comment:: No overnight or acute issues. He rested well. He looks clinically stable. He has no complaints this AM. His CBC is unremarkable. His glucose level is mildly elevated and his Mg level is mildly low at 1.7. - Patient Data Vitals - Most Recent: Last Vital Signs Temp 36.9 C 03/14/18 08:00 Pulse 96 03/14/18 08:22 Resp 18 03/14/18 08:00 BP 134/96 H 03/14/18 08:22 Pulse Ox 98 03/14/18 08:00 Weight - Most Recent: 91.172 kg I&O - Last 24 Hours: Intake & Output 03/13/18 03/14/18 03/14/18 22:59 06:59 14:59 Intake Total 1074 1683 Output Total 300 660 100 Balance 774 1023 -100 Lab Results Last 24 Hours: Laboratory Results - last 24 hr 03/13/18 03/13/18 03/13/18 Range/Units 03:18 15:00 15:00 WBC (4.23-9.07) K/mm3 RBC (4.63-6.08) M/mm3 Hgb (13.7-17.5) gm/L Hct (40.1-51.0) % MCV (79.0-92.2) fl MCH (25.7-32.2) pg MCHC (32.2-35.5) g/dl RDW Std Deviation (35.1-43.9) fL Plt Count (163-337) K/mm3 MPV (9.4-12.3) fl Neut % (Auto) (34.0-67.9) % Lymph % (Auto) (21.8-53.1) % Graves % (Auto) (5.3-12.2) % Eos % (Auto) (0.8-7.0) Baso % (Auto) (0.1-1.2) % Neut # (Auto) (1.78-5.38) K/mm3 Lymph # (Auto) (1.32-3.57) K/mm3 Graves # (Auto) (0.30-0.82) K/mm3 Eos # (Auto) (0.04-0.54) K/mm3 Baso # (Auto) (0.01-0.08) K/mm3 Sodium (136-145) mEq/L Potassium (3.5-5.1) mEq/L Chloride (98-107) mEq/L Carbon Dioxide (21-32) mEq/L Anion Gap (5-15) BUN (7-18) mg/dL Creatinine (0.7-1.3) mg/dL Est Cr Clr Drug Dosing mL/min Estimated GFR (MDRD) (>60) mL/min BUN/Creatinine Ratio (14-18) Glucose (74-106) mg/dL Calcium (8.5-10.1) mg/dL Magnesium (1.8-2.4) mg/dl Urine Color Yellow (Yellow) Urine Appearance Clear (Clear) Urine pH 7.0 (5.0-8.0) Ur Specific [place] 1.025 (1.005-1.030) Urine Protein 2+ H (Negative) Urine Glucose (UA) 2+ H (Negative) Urine Ketones Negative (Negative) Urine Occult Blood Negative (Negative) Urine Nitrite Negative (Negative) Urine Bilirubin Negative (Negative) Urine Urobilinogen 0.2 (0.2-1.0) Ur Leukocyte Esterase Negative (Negative) Urine RBC Not seen (0-5) /hpf Urine WBC 0-5 (0-5) /hpf Ur Epithelial Cells 0-5 (0-5) /hpf Urine Bacteria Not seen (FEW) /hpf Urine Mucus Not seen (FEW) /hpf Urine Opiates Screen Negative (NEGATIVE) Ur Buprenorphine Scrn Negative (NEGATIVE) Ur Oxycodone Screen Negative (NEGATIVE) Urine Methadone Screen Negative (NEGATIVE) Ur Propoxyphene Screen Negative (NEGATIVE) Ur Barbiturates Screen Negative (NEGATIVE) Ur Tricyclics Screen Negative (NEGATIVE) Ur Phencyclidine Scrn Negative (NEGATIVE) Ur Amphetamine Screen Negative (NEGATIVE) U Methamphetamines Scrn Negative (NEGATIVE) U Benzodiazepines Scrn Presumptive positive H (NEGATIVE) U Cocaine Metab Screen Negative (NEGATIVE) U Marijuana (THC) Screen Negative (NEGATIVE) Ethyl Alcohol 0.00 (0.00) gm% 03/14/18 03/14/18 Range/Units 05:54 05:54 WBC 5.72 (4.23-9.07) K/mm3 RBC 5.31 (4.63-6.08) M/mm3 Hgb 15.1 (13.7-17.5) gm/L Hct 45.8 (40.1-51.0) % MCV 86.3 (79.0-92.2) fl MCH 28.4 (25.7-32.2) pg MCHC 33.0 (32.2-35.5) g/dl RDW Std Deviation 42.7 (35.1-43.9) fL Plt Count 157 L (163-337) K/mm3 MPV 11.2 (9.4-12.3) fl Neut % (Auto) 64.0 (34.0-67.9) % Lymph % (Auto) 27.6 (21.8-53.1) % Graves % (Auto) 6.6 (5.3-12.2) % Eos % (Auto) 1.6 (0.8-7.0) Baso % (Auto) 0.2 (0.1-1.2) % Neut # (Auto) 3.66 (1.78-5.38) K/mm3 Lymph # (Auto) 1.58 (1.32-3.57) K/mm3 Graves # (Auto) 0.38 (0.30-0.82) K/mm3 Eos # (Auto) 0.09 (0.04-0.54) K/mm3 Baso # (Auto) 0.01 (0.01-0.08) K/mm3 Sodium 143 (136-145) mEq/L Potassium 4.1 (3.5-5.1) mEq/L Chloride 108 H (98-107) mEq/L Carbon Dioxide 24 (21-32) mEq/L Anion Gap 15.1 H (5-15) BUN 14 (7-18) mg/dL Creatinine 0.7 (0.7-1.3) mg/dL Est Cr Clr Drug Dosing 128.93 mL/min Estimated GFR (MDRD) > 60 (>60) mL/min BUN/Creatinine Ratio 20.0 H (14-18) Glucose 113 H (74-106) mg/dL Calcium 8.5 (8.5-10.1) mg/dL Magnesium 1.7 L (1.8-2.4) mg/dl Urine Color (Yellow) Urine Appearance (Clear) Urine pH (5.0-8.0) Ur Specific [place] (1.005-1.030) Urine Protein (Negative) Urine Glucose (UA) (Negative) Urine Ketones (Negative) Urine Occult Blood (Negative) Urine Nitrite (Negative) Urine Bilirubin (Negative) Urine Urobilinogen (0.2-1.0) Ur Leukocyte Esterase (Negative) Urine RBC (0-5) /hpf Urine WBC (0-5) /hpf Ur Epithelial Cells (0-5) /hpf Urine Bacteria (FEW) /hpf Urine Mucus (FEW) /hpf Urine Opiates Screen (NEGATIVE) Ur Buprenorphine Scrn (NEGATIVE) Ur Oxycodone Screen (NEGATIVE) Urine Methadone Screen (NEGATIVE) Ur Propoxyphene Screen (NEGATIVE) Ur Barbiturates Screen (NEGATIVE) Ur Tricyclics Screen (NEGATIVE) Ur Phencyclidine Scrn (NEGATIVE) Ur Amphetamine Screen (NEGATIVE) U Methamphetamines Scrn (NEGATIVE) U Benzodiazepines Scrn (NEGATIVE) U Cocaine Metab Screen (NEGATIVE) U Marijuana (THC) Screen (NEGATIVE) Ethyl Alcohol (0.00) gm% Med Orders - Current: Current Medications Acetaminophen (Tylenol) 650 mg PO Q4H PRN PRN Reason: Pain (Mild 1-3)/fever Acetaminophen (Tylenol) 650 mg PO BID [facility] Last Admin: 03/14/18 08:20 Dose: 650 mg Hydrocodone Bitart/Acetaminophen (Pocola 325-5 Mg) 1 tab PO Q4H PRN PRN Reason: Pain (moderate 4-6) Albuterol/Ipratropium (Duoneb 3.0-0.5 Mg/3 Ml) 3 ml NEB Q4H PRN PRN Reason: Shortness Of Breath/wheezing Amlodipine Besylate (Norvasc) 2.5 mg PO DAILY [facility] Last Admin: 03/14/18 08:22 Dose: 2.5 mg Baclofen (Lioresal) 10 mg PO DAILY [facility] Last Admin: 03/14/18 08:22 Dose: 10 mg Bisacodyl (Dulcolax) 5 mg PO DAILY PRN PRN Reason: Constipation Calcium Carbonate (Calcium Carbonate/Vitamin D 600 Mg-200 Unit) 1 tab PO DAILY [facility] Last Admin: 03/14/18 08:22 Dose: 1 tab Docusate Sodium (Colace) 100 mg PO BID PRN PRN Reason: Constipation Enoxaparin Sodium (Lovenox) 40 mg SUBCUT DAILY [facility] Last Admin: 03/14/18 08:23 Dose: 40 mg Folic Acid (Folic Acid) 1 mg PO DAILY [facility] Last Admin: 03/14/18 08:22 Dose: 1 mg Hydralazine HCl (Apresoline) 20 mg IVPUSH Q4H PRN PRN Reason: Hypertension Hydromorphone HCl (Dilaudid) 0.5 mg IVPUSH Q2H PRN PRN Reason: Pain (severe 7-10) Promethazine HCl 12.5 mg/ (Sodium Chloride) 50.5 mls @ 100 mls/hr IV Q6H PRN PRN Reason: Nausea/Vomiting Sodium Chloride (Normal Saline) 1,000 mls @ 125 mls/hr IV ASDIRECTED [facility] Last Admin: 03/14/18 06:14 Dose: 125 mls/hr Levetiracetam (Keppra) 500 mg PO BID [facility] Last Admin: 03/14/18 08:22 Dose: 500 mg Loperamide HCl (Imodium) 2 mg PO 6XDAY PRN PRN Reason: Diarrhea Lorazepam (Ativan) 2 mg IVPUSH Q4H PRN PRN Reason: Seizures Lorazepam (Ativan) 1 mg IV Q6H PRN PRN Reason: Anxiety Magnesium Hydroxide (Milk Of Magnesia) 30 ml PO Q12H PRN PRN Reason: Constipation Magnesium Sulfate (Pharmacy To Dose - Magnesium Replacement) 0 dose .XX ASDIRECTED PRN PRN Reason: RX TO WATCH MAG LEVELS Metoprolol Tartrate (Lopressor) 5 mg IVPUSH Q4H PRN PRN Reason: Tachycardia Metoprolol Tartrate (Lopressor) 25 mg PO BID [facility] Last Admin: 03/14/18 08:22 Dose: 25 mg Mirtazapine (Remeron) 30 mg PO BEDTIME [facility] Miscellaneous Information (Remove Patch) 0 ea TRDERM DAILY [facility] Last Admin: 03/14/18 08:24 Dose: Not Given Nicotine (Habitrol) 21 mg TRDERM DAILY PRN PRN Reason: Nicotine Dependence Sodium Chloride 2gm 2 gm PO BID [facility] Ondansetron HCl (Zofran) 4 mg IV Q6H PRN PRN Reason: Nausea/Vomiting Oxycodone HCl (Oxycodone) 5 mg PO DAILY [facility] Last Admin: 03/14/18 08:20 Dose: 5 mg Polyethylene Glycol (Miralax) 17 gm PO DAILY PRN PRN Reason: Constipation Polyethylene Glycol (Miralax) 17 gm PO DAILY [facility] Last Admin: 03/14/18 08:23 Dose: Not Given Potassium Chloride (Pharmacy To Dose - Potassium Replacement) 0 dose .XX ASDIRECTED PRN PRN Reason: RX TO WATCH K LEVELS Saccharomyces Boulardii (Florastor) 250 mg PO DAILY [facility] Last Admin: 03/14/18 08:22 Dose: 250 mg Senna/Docusate Sodium (Senna Plus) 1 tab PO BID PRN PRN Reason: Constipation Senna/Docusate Sodium (Senna Plus) 2 tab PO DAILY [facility] Last Admin: 03/14/18 08:22 Dose: 2 tab Simvastatin (Zocor) 10 mg PO BEDTIME [facility] Discontinued Medications Diphtheria/Tetanus/Acell Pertussis (Adacel) 0.5 ml IM .ONCE ONE Stop: 03/13/18 05:06 Last Admin: 03/13/18 05:29 Dose: 0.5 ml Lidocaine/Epinephrine (Xylocaine 1% With Epinephrine 1:100,000) Confirm Administered Dose 20 ml .ROUTE .STK-MED ONE Stop: 03/13/18 04:51 Last Admin: 03/13/18 05:07 Dose: Not Given Lidocaine/Epinephrine (Xylocaine 1% With Epinephrine 1:100,000) 20 ml INJECT ONETIME ONE Stop: 03/13/18 05:02 Last Admin: 03/13/18 05:02 Dose: 20 ml Lorazepam (Ativan) Confirm Administered Dose 4 mg .ROUTE .STK-MED ONE Stop: 03/13/18 03:05 Last Admin: 03/13/18 11:15 Dose: Not Given Lorazepam (Ativan) Confirm Administered Dose 4 mg .ROUTE .STK-MED ONE Stop: 03/13/18 03:16 Last Admin: 03/13/18 11:15 Dose: Not Given Lorazepam (Ativan) 3 mg IVPUSH ONETIME ONE Stop: 03/13/18 03:06 Last Admin: 03/13/18 03:05 Dose: 3 mg Potassium Chloride (Klor-Con M20) 40 meq PO Q4H [facility] Stop: 03/13/18 13:01 Last Admin: 03/13/18 12:37 Dose: 40 meq - Exam General: Alert, Oriented, Cooperative, No Acute Distress, Mild Distress HEENT: Pupils Equal, Pupils Reactive, EOMI, Mucous Membr. Moist/[place], Other ( facial laceration on nose and upper lip with stitches; wound on forehead: dry clean and intact) Neck: Supple, Trachea Midline, No JVD Lungs: Clear to Auscultation, Normal Respiratory Effort Cardiovascular: Regular Rate, Regular Rhythm GI/Abdominal Exam: Normal Bowel Sounds, Soft, Non-Tender, No Organomegaly, No Distention, No Abnormal Bruit, No Mass (Male) Exam: Deferred, Other (baseline urinary retention) Back Exam: Normal Inspection, Decreased Range of Motion Extremities: Normal Inspection, Normal Range of Motion, Non-Tender, No Pedal Edema, Normal Capillary Refill Peripheral Pulses: 2+: Dorsalis Pedis (L), Dorsalis Pedis (R) Skin: Warm, Dry, Intact Wound/Incisions: Healing Well, Dressing Dry and Intact, No Drainage, Erythema Improving Neurological: No New Focal Deficit, Other (Has baseline hemiplegia ). No: Normal Gait Psy/Mental Status: Alert, Normal Affect, Normal Mood - Problem List Review Problem List Initiated/Reviewed/Updated: Yes - My Orders Last 24 Hours: My Active Orders 03/13/18 08:32 Height and Weight [RC] 04 Up With Assistance [RC] ASDIRECTED Up ad Jayna [RC] ASDIRECTED VTE/DVT Education [RC] DAILY Vital Signs [RC] Q4HR Acetaminophen [Tylenol] 650 mg PO Q4H PRN Acetaminophen/HYDROcodone [Pocola 325-5 MG] 1 tab PO Q4H PRN Albuterol/Ipratropium [DuoNeb 3.0-0.5 MG/3 ML] 3 ml NEB Q4H PRN Bisacodyl [Dulcolax] 5 mg PO DAILY PRN Docusate Sodium [Colace] 100 mg PO BID PRN Docusate Sodium/Sennosides [Senna Plus] 1 tab PO BID PRN HYDROmorphone [Dilaudid] 0.5 mg IVPUSH Q2H PRN LORazepam [Ativan] 1 mg IV Q6H PRN LORazepam [Ativan] 2 mg IVPUSH Q4H PRN Magnesium Hydroxide [Milk of Magnesia] 30 ml PO Q12H PRN Metoprolol Tartrate [Lopressor] 5 mg IVPUSH Q4H PRN Ondansetron [Zofran] 4 mg IV Q6H PRN Polyethylene Glycol 3350 [MiraLAX] 17 gm PO DAILY PRN Promethazine [Phenergan] 12.5 mg Sodium Chloride 0.9% [Normal Saline] 50 ml IV Q6H hydrALAZINE [Apresoline] 20 mg IVPUSH Q4H PRN Resuscitation Status Routine 03/13/18 08:33 Cardiac Monitoring [RC] CONTINUOUS Intake and Output [RC] 04,16 03/13/18 08:35 RT Aerosol Therapy [RC] ASDIRECTED 03/13/18 08:45 Magnesium Rep Pharmacy to Dose [Pharmacy to Dose - Magnesium Replacement] 0 dose .XX ASDIRECTED PRN Potassium Rep Pharmacy to Dose [Pharmacy to Dose - Potassium Replacement] 0 dose .XX ASDIRECTED PRN Sodium Chloride 0.9% [Normal Saline] 1,000 ml IV ASDIRECTED 03/13/18 09:00 Enoxaparin [Lovenox] 40 mg SUBCUT DAILY Nicotine [Habitrol] 21 mg TRDERM DAILY PRN 03/13/18 15:00 BENZODIAZEPINE CONF (LCMSMS) Stat DRUG SCREEN, URINE REFLEX [URCHEM] Stat URINALYSIS W/MICROSCOPIC [UA W/MICROSCOPIC] [URIN] Stat 03/13/18 17:31 Oxygen Therapy [RC] PRN Consult to Case Management [CONS] Routine Consult to Electric [employer] [CONS] Routine OT Evaluation and Treatment [CONS] Routine PT Evaluation and Treatment [CONS] Routine 03/13/18 22:05 Loperamide [Imodium] 2 mg PO 6XDAY PRN 03/13/18 Lunch Regular Diet [DIET] 03/14/18 09:00 Acetaminophen [Tylenol] 650 mg PO BID Baclofen [Lioresal] 10 mg PO DAILY Calcium Carbonate/Vitamin D3 [Calcium Carbonate/Vitamin D 600 MG-200 Unit] 1 tab PO DAILY Docusate Sodium/Sennosides [Senna Plus] 2 tab PO DAILY Folic Acid 1 mg PO DAILY Metoprolol Tartrate [Lopressor] 25 mg PO BID Polyethylene Glycol 3350 [MiraLAX] 17 gm PO DAILY Remove Patch 0 ea TRDERM DAILY Saccharomyces Boulardii [Florastor] 250 mg PO DAILY Sodium Chloride 2 gm PO BID amLODIPine [Norvasc] 2.5 mg PO DAILY levETIRAcetam [Keppra] 500 mg PO BID oxyCODONE 5 mg PO DAILY 03/14/18 21:00 Mirtazapine [Remeron] 30 mg PO BEDTIME Simvastatin [Zocor] 10 mg PO BEDTIME 03/15/18 05:11 BASIC METABOLIC PANEL,BMP [CHEM] AM CBC WITH AUTO DIFF [HEME] AM MAGNESIUM [CHEM] AM 03/16/18 05:11 BASIC METABOLIC PANEL,BMP [CHEM] AM CBC WITH AUTO DIFF [HEME] AM MAGNESIUM [CHEM] AM 03/17/18 05:11 BASIC METABOLIC PANEL,BMP [CHEM] AM CBC WITH AUTO DIFF [HEME] AM MAGNESIUM [CHEM] AM 03/18/18 05:11 BASIC METABOLIC PANEL,BMP [CHEM] AM CBC WITH AUTO DIFF [HEME] AM MAGNESIUM [CHEM] AM - Assessment Assessment:: Assessment/Plan: Acute: Acute on Chronic - Seizure Disorder, Stable * Apparent seizure with fall/injury at [facility] facility early 03/13 * Event was unwitnessed - unknown if LOC * Prior history of seizure disorder and brain injury * Likely secondary to inadequate Keppra - inability to take medications * ER workup * Vitals - initial tachycardia and hypertension; now stable * Initial labs - elevated anion gap, reduced BUN/Cr ratio; mildly elevated glucose; no other abnormal findings * Head/spine CT showed no new abnormalities * Facial lacerations were sutured * dtap vaccine administered * Admitted to ICU for further management * IVF, supplemental O2, telemetry * Lorazepam for seizures * DVT prophylaxis enoxaparin * Screening to determine blood levels of Keppra pending * UA ordered to r/o UTI; drug and alcohol screening Mild Hypomagnesemia * Mg level is 1.7 * 2/2 inadequate intake * Replete and monitor Facial lacerations, Stable * Secondary to traumatic fall * Lacerations on forehead, nose, and upper lip * Received treatment in the emergency department * Continue wound care Hyperglycemia * 128--> 113 * Will screen him for Diabetes Resolved: Status post-fall * Secondary to acute seizure * Multiple facial lacerations * Possible head injury r/o - CT was benign * Fall precautions Chronic: HTN HLD Urinary Incontinence Hemiplegia Bakc Pain Hx/o CVA Brain Injury Hx/o CVA Hx/o Spinal Fusion Hx/o MRSA Hypantrenmia Depression Constipation Plan: He is clinically stable Continue current treatment Routine AM Labs PT/OT consult SW/CM for d/c planning Code status:1 Discharge pending Keppra level
[2018-03-14] MEDS: Sodium Chloride/Potassium Chloride Tab PO SCH ×2 (09:45→20:04)
[2018-03-14] MEDS ORDERED: Magnesium Sulfate/Water 2 GM in Premix Bag 1 BAG IV ONE (10:30)
[2018-03-14] MEDS: Simvastatin 10 MG Tab PO SCH (20:04)
[2018-03-14] MEDS: Mirtazapine 30 MG Tab PO SCH (20:05)
[2018-03-15] MEDS: Saccharomyces Boulardii (Probiotic) 250 MG Cap PO SCH (08:05)
[2018-03-15] MEDS: Folic Acid 1 MG Tab PO SCH (08:05)
[2018-03-15] MEDS: Sodium Chloride/Potassium Chloride Tab PO SCH ×2 (08:05→20:32)
[2018-03-15] MEDS: oxyCODONE 5 MG Tab PO SCH (08:06)
[2018-03-15] MEDS: Calcium Carbonate/Vitamin D3 600 MG-200 Units Tab PO SCH (08:06)
[2018-03-15] MEDS: amLODIPine 2.5 MG Tab PO SCH (08:06)
[2018-03-15] MEDS: Acetaminophen 325 MG Tab PO SCH ×2 (08:07→20:27)
[2018-03-15] MEDS: Metoprolol Tartrate 25 MG Tab PO SCH ×2 (08:07→20:26)
[2018-03-15] MEDS: Baclofen 10 MG Tab PO SCH (08:07)
[2018-03-15] MEDS: Enoxaparin 40 MG/0.4 ML Syringe SUBCUT SCH (08:08)
[2018-03-15] MEDS: levETIRAcetam 500 MG Tab PO SCH ×2 (08:08→20:27)
[2018-03-15] MEDS: Polyethylene Glycol 3350 Powder 17 GM Packet PO SCH (08:08)
[2018-03-15] MEDS: Magnesium Oxide 400 MG Tab PO SCH ×3 (09:29→20:26)
--- NOTE | 2018-03-15 10:21 | PCM.PN ---
- General Info Date of Service: 03/15/18 Admission Dx/Problem (Free Text): Admission Diagnosis/Problem Admission Diagnosis/Problem Seizure disorder Subjective Update: Follow Up Functional Status: Reports: Pain Controlled, Tolerating Diet, Urinating. Denies : New Symptoms - Review of Systems General: Denies: Fever, Weakness, Fatigue, Malaise, Chills HEENT: Reports: No Symptoms. Denies: Eye Pain, Headaches, Sinus Congestion, Rhinitis, Visual Changes Pulmonary: Denies: Shortness of Breath Cardiovascular: Denies: Chest Pain, Dyspnea on Exertion, Lightheadedness Gastrointestinal: Denies: Abdominal Pain, Nausea, Vomiting Genitourinary: Reports: No Symptoms Musculoskeletal: Reports: No Symptoms Skin: Denies: Cyanosis, Mottled, Pallor, Diaphoresis, Rash Neurological: Denies: Confusion, Difficulty Walking, Weakness, Gait Disturbance Psychiatric: Denies: Confusion, Anxiety, Agitation, Hallucinations Systems Review Comment:: No overnight or acute issues. He rested well and he is doing okay. He has no complaints this AM. His AM labs are fairly unremarkable. - Patient Data Vitals - Most Recent: Last Vital Signs Temp 37.3 C 03/15/18 08:03 Pulse 93 03/15/18 08:07 Resp 18 03/15/18 08:03 BP 139/93 H 03/15/18 08:07 Pulse Ox 93 L 03/15/18 08:03 Weight - Most Recent: 91.626 kg I&O - Last 24 Hours: Intake & Output 03/14/18 03/15/18 03/15/18 22:59 06:59 14:59 Intake Total 1940 520 Output Total 225 660 325 Balance 1715 -140 -325 Lab Results Last 24 Hours: Laboratory Results - last 24 hr 03/14/18 03/15/18 03/15/18 Range/Units 05:54 06:12 06:12 WBC 6.03 (4.23-9.07) K/mm3 RBC 5.41 (4.63-6.08) M/mm3 Hgb 15.4 (13.7-17.5) gm/L Hct 46.7 (40.1-51.0) % MCV 86.3 (79.0-92.2) fl MCH 28.5 (25.7-32.2) pg MCHC 33.0 (32.2-35.5) g/dl RDW Std Deviation 41.9 (35.1-43.9) fL Plt Count 162 L (163-337) K/mm3 MPV 10.8 (9.4-12.3) fl Neut % (Auto) 61.6 (34.0-67.9) % Lymph % (Auto) 28.4 (21.8-53.1) % [place] % (Auto) 6.8 (5.3-12.2) % Eos % (Auto) 2.7 (0.8-7.0) Baso % (Auto) 0.3 (0.1-1.2) % Neut # (Auto) 3.72 (1.78-5.38) K/mm3 Lymph # (Auto) 1.71 (1.32-3.57) K/mm3 [place] # (Auto) 0.41 (0.30-0.82) K/mm3 Eos # (Auto) 0.16 (0.04-0.54) K/mm3 Baso # (Auto) 0.02 (0.01-0.08) K/mm3 Sodium 141 (136-145) mEq/L Potassium 4.1 (3.5-5.1) mEq/L Chloride 105 (98-107) mEq/L Carbon Dioxide 30 (21-32) mEq/L Anion Gap 10.1 (5-15) BUN 11 (7-18) mg/dL Creatinine 0.7 (0.7-1.3) mg/dL Est Cr Clr Drug Dosing 128.93 mL/min Estimated GFR (MDRD) > 60 (>60) mL/min BUN/Creatinine Ratio 15.7 (14-18) Glucose 106 (74-106) mg/dL Hemoglobin A1c 6.10 (4.50-6.20) % Calcium 8.8 (8.5-10.1) mg/dL Magnesium 1.7 L (1.8-2.4) mg/dl Med Orders - Current: Current Medications Acetaminophen (Tylenol) 650 mg PO Q4H PRN PRN Reason: Pain (Mild 1-3)/fever Acetaminophen (Tylenol) 650 mg PO BID [facility] Last Admin: 03/15/18 08:07 Dose: 650 mg Hydrocodone Bitart/Acetaminophen ([place] 325-5 Mg) 1 tab PO Q4H PRN PRN Reason: Pain (moderate 4-6) Albuterol/Ipratropium (Duoneb 3.0-0.5 Mg/3 Ml) 3 ml NEB Q4H PRN PRN Reason: Shortness Of Breath/wheezing Amlodipine Besylate (Norvasc) 2.5 mg PO DAILY [facility] Last Admin: 03/15/18 08:06 Dose: 2.5 mg Baclofen (Lioresal) 10 mg PO DAILY [facility] Last Admin: 03/15/18 08:07 Dose: 10 mg Bisacodyl (Dulcolax) 5 mg PO DAILY PRN PRN Reason: Constipation Calcium Carbonate (Calcium Carbonate/Vitamin D 600 Mg-200 Unit) 1 tab PO DAILY [facility] Last Admin: 03/15/18 08:06 Dose: 1 tab Docusate Sodium (Colace) 100 mg PO BID PRN PRN Reason: Constipation Enoxaparin Sodium (Lovenox) 40 mg SUBCUT DAILY [facility] Last Admin: 03/15/18 08:08 Dose: 40 mg Folic Acid (Folic Acid) 1 mg PO DAILY [facility] Last Admin: 03/15/18 08:05 Dose: 1 mg Hydralazine HCl (Apresoline) 20 mg IVPUSH Q4H PRN PRN Reason: Hypertension Hydromorphone HCl (Dilaudid) 0.5 mg IVPUSH Q2H PRN PRN Reason: Pain (severe 7-10) Promethazine HCl 12.5 mg/ (Sodium Chloride) 50.5 mls @ 100 mls/hr IV Q6H PRN PRN Reason: Nausea/Vomiting Levetiracetam (Keppra) 500 mg PO BID [facility] Last Admin: 03/15/18 08:08 Dose: 500 mg Loperamide HCl (Imodium) 2 mg PO 6XDAY PRN PRN Reason: Diarrhea Lorazepam (Ativan) 2 mg IVPUSH Q4H PRN PRN Reason: Seizures Lorazepam (Ativan) 1 mg IV Q6H PRN PRN Reason: Anxiety Magnesium Hydroxide (Milk Of Magnesia) 30 ml PO Q12H PRN PRN Reason: Constipation Magnesium Oxide (Magnesium Oxide) 400 mg PO TID [facility] Last Admin: 03/15/18 09:29 Dose: 400 mg Magnesium Sulfate (Pharmacy To Dose - Magnesium Replacement) 0 dose .XX ASDIRECTED PRN PRN Reason: RX TO WATCH MAG LEVELS Metoprolol Tartrate (Lopressor) 5 mg IVPUSH Q4H PRN PRN Reason: Tachycardia Metoprolol Tartrate (Lopressor) 25 mg PO BID [facility] Last Admin: 03/15/18 08:07 Dose: 25 mg Mirtazapine (Remeron) 30 mg PO BEDTIME [facility] Last Admin: 03/14/18 20:05 Dose: 30 mg Miscellaneous Information (Remove Patch) 0 ea TRDERM DAILY [facility] Last Admin: 03/15/18 08:09 Dose: Not Given Nicotine (Habitrol) 21 mg TRDERM DAILY PRN PRN Reason: Nicotine Dependence Ondansetron HCl (Zofran) 4 mg IV Q6H PRN PRN Reason: Nausea/Vomiting Oral Electrolytes (Thermotabs) 4 each PO BID [facility] Last Admin: 03/15/18 08:05 Dose: 4 each Oxycodone HCl (Oxycodone) 5 mg PO DAILY [facility] Last Admin: 03/15/18 08:06 Dose: 5 mg Polyethylene Glycol (Miralax) 17 gm PO DAILY PRN PRN Reason: Constipation Polyethylene Glycol (Miralax) 17 gm PO DAILY [facility] Last Admin: 03/15/18 08:08 Dose: Not Given Potassium Chloride (Pharmacy To Dose - Potassium Replacement) 0 dose .XX ASDIRECTED PRN PRN Reason: RX TO WATCH K LEVELS Saccharomyces Boulardii (Florastor) 250 mg PO DAILY [facility] Last Admin: 03/15/18 08:05 Dose: 250 mg Senna/Docusate Sodium (Senna Plus) 1 tab PO BID PRN PRN Reason: Constipation Senna/Docusate Sodium (Senna Plus) 2 tab PO DAILY [facility] Last Admin: 03/15/18 08:09 Dose: Not Given Simvastatin (Zocor) 10 mg PO BEDTIME [facility] Last Admin: 03/14/18 20:04 Dose: 10 mg Discontinued Medications Diphtheria/Tetanus/Acell Pertussis (Adacel) 0.5 ml IM .ONCE ONE Stop: 03/13/18 05:06 Last Admin: 03/13/18 05:29 Dose: 0.5 ml Sodium Chloride (Normal Saline) 1,000 mls @ 125 mls/hr IV ASDIRECTED [facility] Last Admin: 03/14/18 06:14 Dose: 125 mls/hr Magnesium Sulfate 2 gm/ Premix 50 mls @ 25 mls/hr IV ONETIME ONE Stop: 03/14/18 12:29 Last Admin: 03/14/18 10:10 Dose: 25 mls/hr Lidocaine/Epinephrine (Xylocaine 1% With Epinephrine 1:100,000) Confirm Administered Dose 20 ml .ROUTE .STK-MED ONE Stop: 03/13/18 04:51 Last Admin: 03/13/18 05:07 Dose: Not Given Lidocaine/Epinephrine (Xylocaine 1% With Epinephrine 1:100,000) 20 ml INJECT ONETIME ONE Stop: 03/13/18 05:02 Last Admin: 03/13/18 05:02 Dose: 20 ml Lorazepam (Ativan) Confirm Administered Dose 4 mg .ROUTE .STK-MED ONE Stop: 03/13/18 03:05 Last Admin: 03/13/18 11:15 Dose: Not Given Lorazepam (Ativan) Confirm Administered Dose 4 mg .ROUTE .STK-MED ONE Stop: 03/13/18 03:16 Last Admin: 03/13/18 11:15 Dose: Not Given Lorazepam (Ativan) 3 mg IVPUSH ONETIME ONE Stop: 03/13/18 03:06 Last Admin: 03/13/18 03:05 Dose: 3 mg Potassium Chloride (Klor-Con M20) 40 meq PO Q4H [facility]OR[facility] Stop: 03/13/18 13:01 Last Admin: 03/13/18 12:37 Dose: 40 meq - Exam General: Alert, Oriented, Cooperative, No Acute Distress HEENT: Pupils Equal, Pupils Reactive, EOMI, Mucous Membr. Moist/[place], Other ( Asymmetric face and upper lip is swollen) Neck: Supple, Trachea Midline, No JVD, No Thyromegaly Lungs: Clear to Auscultation, Normal Respiratory Effort Cardiovascular: Regular Rate, Regular Rhythm GI/Abdominal Exam: Normal Bowel Sounds, Soft, Non-Tender, No Organomegaly, No Distention, No Abnormal Bruit, No Mass (Male) Exam: Deferred Back Exam: Normal Inspection, Decreased Range of Motion Extremities: Normal Inspection, Normal Range of Motion, Non-Tender, No Pedal Edema, Normal Capillary Refill Peripheral Pulses: 2+: Dorsalis Pedis (L), Dorsalis Pedis (R) Skin: Warm, Dry, Intact Wound/Incisions: Healing Well, No Drainage, Erythema Improving, Other ( laceration/wound: forhead (biggest), bridge of the nose and upper lip) Neurological: No New Focal Deficit, Other (baseline hemiplegia). No: Normal Gait Psy/Mental Status: Alert, Normal Affect, Normal Mood - Problem List Review Problem List Initiated/Reviewed/Updated: Yes - My Orders Last 24 Hours: My Active Orders 03/14/18 14:54 Patient Status [ADT] Routine 03/14/18 21:00 Mirtazapine [Remeron] 30 mg PO BEDTIME Simvastatin [Zocor] 10 mg PO BEDTIME 03/15/18 09:00 Magnesium Oxide 400 mg PO TID 03/16/18 05:11 BASIC METABOLIC PANEL,BMP [CHEM] AM CBC WITH AUTO DIFF [HEME] AM MAGNESIUM [CHEM] AM 03/17/18 05:11 BASIC METABOLIC PANEL,BMP [CHEM] AM CBC WITH AUTO DIFF [HEME] AM MAGNESIUM [CHEM] AM 03/18/18 05:11 BASIC METABOLIC PANEL,BMP [CHEM] AM CBC WITH AUTO DIFF [HEME] AM MAGNESIUM [CHEM] AM - Assessment Assessment:: Assessment/Plan: Acute: Acute on Chronic - Seizure Disorder, Stable * Apparent seizure with fall/injury at [facility] facility early 03/13 * Event was unwitnessed - unknown if LOC * Prior history of seizure disorder and brain injury * Likely secondary to inadequate Keppra - inability to take medications * ER workup * Vitals - initial tachycardia and hypertension; now stable * Initial labs - elevated anion gap, reduced BUN/Cr ratio; mildly elevated glucose; no other abnormal findings * Head/spine CT showed no new abnormalities * Facial lacerations were sutured * dtap vaccine administered * Admitted to ICU for further management * IVF, supplemental O2, telemetry * Lorazepam for seizures * DVT prophylaxis enoxaparin * Screening to determine blood levels of Keppra pending * UA ordered to r/o UTI; drug and alcohol screening Mild Hypomagnesemia * Mg level is 1.7--> 1.7 * 2/2 inadequate intake * Replete and monitor Facial lacerations, Stable * Secondary to traumatic fall * Lacerations on forehead, nose, and upper lip * Received treatment in the emergency department * Continue wound care Resolved: Status post-fall * Secondary to acute seizure * Multiple facial lacerations * Possible head injury r/o - CT was benign * Fall precautions Hyperglycemia * 128--> 113--> 106 * He is Pre-Diabetes with A1C of 6.1 Chronic: HTN HLD Urinary Incontinence Hemiplegia Bakc Pain Hx/o CVA Brain Injury Hx/o CVA Hx/o Spinal Fusion 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
[2018-03-15] MEDS: Simvastatin 10 MG Tab PO SCH (20:27)
[2018-03-15] MEDS: Mirtazapine 30 MG Tab PO SCH (20:28)
[2018-03-16] MEDS: Calcium Carbonate/Vitamin D3 600 MG-200 Units Tab PO SCH (08:23)
[2018-03-16] MEDS: Folic Acid 1 MG Tab PO SCH (08:24)
[2018-03-16] MEDS: Saccharomyces Boulardii (Probiotic) 250 MG Cap PO SCH (08:24)
[2018-03-16] MEDS: levETIRAcetam 500 MG Tab PO SCH ×2 (08:25→20:30)
[2018-03-16] MEDS: Baclofen 10 MG Tab PO SCH (08:29)
[2018-03-16] MEDS: Metoprolol Tartrate 25 MG Tab PO SCH ×2 (08:29→20:30)
[2018-03-16] MEDS: Magnesium Oxide 400 MG Tab PO SCH ×3 (08:30→20:29)
[2018-03-16] MEDS: amLODIPine 2.5 MG Tab PO SCH (08:31)
[2018-03-16] MEDS: oxyCODONE 5 MG Tab PO SCH (08:31)
[2018-03-16] MEDS: Acetaminophen 325 MG Tab PO SCH ×2 (08:33→20:31)
[2018-03-16] MEDS: Sodium Chloride/Potassium Chloride Tab PO SCH ×2 (08:34→20:29)
[2018-03-16] MEDS: Enoxaparin 40 MG/0.4 ML Syringe SUBCUT SCH (08:37)
[2018-03-16] MEDS: Polyethylene Glycol 3350 Powder 17 GM Packet PO SCH (08:44)
--- NOTE | 2018-03-16 08:52 | PCM.PN ---
- General Info Date of Service: 03/16/18 Admission Dx/Problem (Free Text): Admission Diagnosis/Problem Admission Diagnosis/Problem Seizure disorder Subjective Update: Follow Up Functional Status: Reports: Pain Controlled, Tolerating Diet, Ambulating (with quad cane), Urinating, New Symptoms - Review of Systems General: Denies: Fever, Weakness, Fatigue, Malaise, Chills HEENT: Reports: No Symptoms Pulmonary: Denies: Shortness of Breath Cardiovascular: Denies: Chest Pain, Dyspnea on Exertion, Lightheadedness Gastrointestinal: Reports: Flatus, Other (flatulence). Denies: Abdominal Pain, Decreased Appetite, Nausea, Vomiting Genitourinary: Reports: No Symptoms Musculoskeletal: Reports: No Symptoms Skin: Denies: Cyanosis, Pallor, Diaphoresis, Rash Neurological: Denies: Confusion, Difficulty Walking, Weakness, Gait Disturbance Psychiatric: Denies: Depression, Anxiety, Agitation, Hallucinations Systems Review Comment:: No overnight or acute issues. He rested well. He has no complaints. No seizures reported. - Patient Data Vitals - Most Recent: Last Vital Signs Temp 37.3 C 03/16/18 08:19 Pulse 71 03/16/18 08:29 Resp 16 03/16/18 08:19 BP 117/86 03/16/18 08:31 Pulse Ox 91 L 03/16/18 08:19 Weight - Most Recent: 91.444 kg I&O - Last 24 Hours: Intake & Output 03/15/18 03/16/18 03/16/18 22:59 06:59 14:59 Intake Total 500 300 Output Total 250 200 Balance 250 100 Lab Results Last 24 Hours: Laboratory Results - last 24 hr 03/16/18 03/16/18 Range/Units 06:24 06:24 WBC 5.32 (4.23-9.07) K/mm3 RBC 5.53 (4.63-6.08) M/mm3 Hgb 15.7 (13.7-17.5) gm/L Hct 46.5 (40.1-51.0) % MCV 84.1 (79.0-92.2) fl MCH 28.4 (25.7-32.2) pg MCHC 33.8 (32.2-35.5) g/dl RDW Std Deviation 40.6 (35.1-43.9) fL Plt Count 164 (163-337) K/mm3 MPV 10.9 (9.4-12.3) fl Neut % (Auto) 58.1 (34.0-67.9) % Lymph % (Auto) 30.6 (21.8-53.1) % [place] % (Auto) 7.9 (5.3-12.2) % Eos % (Auto) 3.0 (0.8-7.0) Baso % (Auto) 0.2 (0.1-1.2) % Neut # (Auto) 3.09 (1.78-5.38) K/mm3 Lymph # (Auto) 1.63 (1.32-3.57) K/mm3 [place] # (Auto) 0.42 (0.30-0.82) K/mm3 Eos # (Auto) 0.16 (0.04-0.54) K/mm3 Baso # (Auto) 0.01 (0.01-0.08) K/mm3 Sodium 139 (136-145) mEq/L Potassium 4.3 (3.5-5.1) mEq/L Chloride 103 (98-107) mEq/L Carbon Dioxide 27 (21-32) mEq/L Anion Gap 13.3 (5-15) BUN 14 (7-18) mg/dL Creatinine 0.7 (0.7-1.3) mg/dL Est Cr Clr Drug Dosing 128.93 mL/min Estimated GFR (MDRD) > 60 (>60) mL/min BUN/Creatinine Ratio 20.0 H (14-18) Glucose 104 (74-106) mg/dL Calcium 9.1 (8.5-10.1) mg/dL Magnesium 1.9 (1.8-2.4) mg/dl Med Orders - Current: Current Medications Acetaminophen (Tylenol) 650 mg PO Q4H PRN PRN Reason: Pain (Mild 1-3)/fever Acetaminophen (Tylenol) 650 mg PO BID [facility] Last Admin: 03/16/18 08:33 Dose: 650 mg Hydrocodone Bitart/Acetaminophen ([place] 325-5 Mg) 1 tab PO Q4H PRN PRN Reason: Pain (moderate 4-6) Albuterol/Ipratropium (Duoneb 3.0-0.5 Mg/3 Ml) 3 ml NEB Q4H PRN PRN Reason: Shortness Of Breath/wheezing Amlodipine Besylate (Norvasc) 2.5 mg PO DAILY [facility] Last Admin: 03/16/18 08:31 Dose: 2.5 mg Baclofen (Lioresal) 10 mg PO DAILY [facility] Last Admin: 03/16/18 08:29 Dose: 10 mg Bisacodyl (Dulcolax) 5 mg PO DAILY PRN PRN Reason: Constipation Calcium Carbonate (Calcium Carbonate/Vitamin D 600 Mg-200 Unit) 1 tab PO DAILY [facility] Last Admin: 03/16/18 08:23 Dose: 1 tab Docusate Sodium (Colace) 100 mg PO BID PRN PRN Reason: Constipation Enoxaparin Sodium (Lovenox) 40 mg SUBCUT DAILY [facility] Last Admin: 03/16/18 08:37 Dose: 40 mg Folic Acid (Folic Acid) 1 mg PO DAILY [facility] Last Admin: 03/16/18 08:24 Dose: 1 mg Hydralazine HCl (Apresoline) 20 mg IVPUSH Q4H PRN PRN Reason: Hypertension Hydromorphone HCl (Dilaudid) 0.5 mg IVPUSH Q2H PRN PRN Reason: Pain (severe 7-10) Promethazine HCl 12.5 mg/ (Sodium Chloride) 50.5 mls @ 100 mls/hr IV Q6H PRN PRN Reason: Nausea/Vomiting Levetiracetam (Keppra) 500 mg PO BID [facility] Last Admin: 03/16/18 08:25 Dose: 500 mg Loperamide HCl (Imodium) 2 mg PO 6XDAY PRN PRN Reason: Diarrhea Lorazepam (Ativan) 2 mg IVPUSH Q4H PRN PRN Reason: Seizures Lorazepam (Ativan) 1 mg IV Q6H PRN PRN Reason: Anxiety Magnesium Hydroxide (Milk Of Magnesia) 30 ml PO Q12H PRN PRN Reason: Constipation Magnesium Oxide (Magnesium Oxide) 400 mg PO TID [facility] Last Admin: 03/16/18 08:30 Dose: 400 mg Magnesium Sulfate (Pharmacy To Dose - Magnesium Replacement) 0 dose .XX ASDIRECTED PRN PRN Reason: RX TO WATCH MAG LEVELS Metoprolol Tartrate (Lopressor) 5 mg IVPUSH Q4H PRN PRN Reason: Tachycardia Metoprolol Tartrate (Lopressor) 25 mg PO BID [facility] Last Admin: 03/16/18 08:29 Dose: 25 mg Mirtazapine (Remeron) 30 mg PO BEDTIME [facility] Last Admin: 03/15/18 20:28 Dose: 30 mg Miscellaneous Information (Remove Patch) 0 ea TRDERM DAILY [facility] Last Admin: 03/16/18 08:45 Dose: Not Given Nicotine (Habitrol) 21 mg TRDERM DAILY PRN PRN Reason: Nicotine Dependence Ondansetron HCl (Zofran) 4 mg IV Q6H PRN PRN Reason: Nausea/Vomiting Oral Electrolytes (Thermotabs) 4 each PO BID [facility] Last Admin: 03/16/18 08:34 Dose: 4 each Oxycodone HCl (Oxycodone) 5 mg PO DAILY [facility] Last Admin: 03/16/18 08:31 Dose: 5 mg Polyethylene Glycol (Miralax) 17 gm PO DAILY PRN PRN Reason: Constipation Polyethylene Glycol (Miralax) 17 gm PO DAILY [facility] Last Admin: 03/16/18 08:44 Dose: Not Given Potassium Chloride (Pharmacy To Dose - Potassium Replacement) 0 dose .XX ASDIRECTED PRN PRN Reason: RX TO WATCH K LEVELS Saccharomyces Boulardii (Florastor) 250 mg PO DAILY [facility] Last Admin: 03/16/18 08:24 Dose: 250 mg Senna/Docusate Sodium (Senna Plus) 1 tab PO BID PRN PRN Reason: Constipation Senna/Docusate Sodium (Senna Plus) 2 tab PO DAILY [facility] Last Admin: 03/16/18 08:44 Dose: Not Given Simvastatin (Zocor) 10 mg PO BEDTIME [facility] Last Admin: 03/15/18 20:27 Dose: 10 mg Discontinued Medications Diphtheria/Tetanus/Acell Pertussis (Adacel) 0.5 ml IM .ONCE ONE Stop: 03/13/18 05:06 Last Admin: 03/13/18 05:29 Dose: 0.5 ml Sodium Chloride (Normal Saline) 1,000 mls @ 125 mls/hr IV ASDIRECTED [facility] Last Admin: 03/14/18 06:14 Dose: 125 mls/hr Magnesium Sulfate 2 gm/ Premix 50 mls @ 25 mls/hr IV ONETIME ONE Stop: 03/14/18 12:29 Last Admin: 03/14/18 10:10 Dose: 25 mls/hr Lidocaine/Epinephrine (Xylocaine 1% With Epinephrine 1:100,000) Confirm Administered Dose 20 ml .ROUTE .STK-MED ONE Stop: 03/13/18 04:51 Last Admin: 03/13/18 05:07 Dose: Not Given Lidocaine/Epinephrine (Xylocaine 1% With Epinephrine 1:100,000) 20 ml INJECT ONETIME ONE Stop: 03/13/18 05:02 Last Admin: 03/13/18 05:02 Dose: 20 ml Lorazepam (Ativan) Confirm Administered Dose 4 mg .ROUTE .STK-MED ONE Stop: 03/13/18 03:05 Last Admin: 03/13/18 11:15 Dose: Not Given Lorazepam (Ativan) Confirm Administered Dose 4 mg .ROUTE .STK-MED ONE Stop: 03/13/18 03:16 Last Admin: 03/13/18 11:15 Dose: Not Given Lorazepam (Ativan) 3 mg IVPUSH ONETIME ONE Stop: 03/13/18 03:06 Last Admin: 03/13/18 03:05 Dose: 3 mg Potassium Chloride (Klor-Con M20) 40 meq PO Q4H [facility]ORA Stop: 03/13/18 13:01 Last Admin: 03/13/18 12:37 Dose: 40 meq - Exam General: Alert, Oriented, Cooperative, No Acute Distress HEENT: Pupils Equal, Pupils Reactive, EOMI, Mucous Membr. Moist/[place], Other ( facial asymmetry; swollen upper lip; facial lacerations) Neck: Supple, Trachea Midline Lungs: Clear to Auscultation, Normal Respiratory Effort Cardiovascular: Regular Rate, Regular Rhythm GI/Abdominal Exam: Normal Bowel Sounds, Soft, Non-Tender, No Organomegaly, No Distention, No Abnormal Bruit, No Mass (Male) Exam: Deferred Back Exam: Normal Inspection, Decreased Range of Motion Extremities: Normal Inspection, Normal Range of Motion, Non-Tender, No Pedal Edema, Normal Capillary Refill Peripheral Pulses: 2+: Dorsalis Pedis (L), Dorsalis Pedis (R) Skin: Warm, Dry, Intact Wound/Incisions: Healing Well, No Drainage, Erythema Improving, Other ( lacerations: forehead, nose bridge and upper lip) Neurological: No New Focal Deficit Psy/Mental Status: Alert, Normal Affect, Normal Mood - Problem List Review Problem List Initiated/Reviewed/Updated: Yes - My Orders Last 24 Hours: My Active Orders 03/15/18 09:00 Magnesium Oxide 400 mg PO TID 03/17/18 05:11 BASIC METABOLIC PANEL,BMP [CHEM] AM CBC WITH AUTO DIFF [HEME] AM MAGNESIUM [CHEM] AM 03/18/18 05:11 BASIC METABOLIC PANEL,BMP [CHEM] AM CBC WITH AUTO DIFF [HEME] AM MAGNESIUM [CHEM] AM - Assessment Assessment:: Assessment/Plan: Acute: Acute on Chronic - Seizure Disorder, Stable * Apparent seizure with fall/injury at [facility] facility early 03/13 * Event was unwitnessed - unknown if LOC * Prior history of seizure disorder and brain injury * Likely secondary to inadequate Keppra - inability to take medications * ER workup * Vitals - initial tachycardia and hypertension; now stable * Initial labs - elevated anion gap, reduced BUN/Cr ratio; mildly elevated glucose; no other abnormal findings * Head/spine CT showed no new abnormalities * Facial lacerations were sutured * dtap vaccine administered * Admitted to ICU for further management * IVF, supplemental O2, telemetry * Lorazepam for seizures * DVT prophylaxis enoxaparin * Screening to determine blood levels of Keppra pending * UA ordered to r/o UTI; drug and alcohol screening Facial lacerations, Stable * Secondary to traumatic fall * Lacerations on forehead, nose, and upper lip * Received treatment in the emergency department * Continue wound care Resolved: Status post-fall * Secondary to acute seizure * Multiple facial lacerations * Possible head injury r/o - CT was benign * Fall precautions S/p Hyperglycemia * 128--> 113--> 106 * He is Pre-Diabetes with A1C of 6.1 S/p Mild Hypomagnesemia * Mg level is 1.7--> 1.7--> 1.9 * 2/2 inadequate intake * Replete and monitor Chronic: HTN HLD Urinary Incontinence Hemiplegia Bakc Pain Hx/o CVA Brain Injury Hx/o CVA Hx/o Spinal Fusion Hx/o MRSA Hypantrenmia Depression Constipation Plan: He remains clinically stable Seizure Precautions Continue current treatment Routine AM Labs SW/CM for d/c planning Code status:1 [place] > 96 hrs pending Keppra level
[2018-03-16] MEDS ORDERED: Simethicone 80 MG Tab.Chew PO PRN (11:29)
[2018-03-16] MEDS: Simvastatin 10 MG Tab PO SCH (20:29)
[2018-03-16] MEDS: Mirtazapine 30 MG Tab PO SCH (20:30)
[2018-03-17] MEDS: Metoprolol Tartrate 25 MG Tab PO SCH ×2 (08:57→21:09)
[2018-03-17] MEDS: Magnesium Oxide 400 MG Tab PO SCH ×3 (08:58→21:09)
[2018-03-17] MEDS: Saccharomyces Boulardii (Probiotic) 250 MG Cap PO SCH (08:58)
[2018-03-17] MEDS: levETIRAcetam 500 MG Tab PO SCH ×2 (08:58→21:09)
[2018-03-17] MEDS: Baclofen 10 MG Tab PO SCH (08:58)
[2018-03-17] MEDS: Acetaminophen 325 MG Tab PO SCH ×2 (08:58→21:09)
[2018-03-17] MEDS: Calcium Carbonate/Vitamin D3 600 MG-200 Units Tab PO SCH (08:59)
[2018-03-17] MEDS: Folic Acid 1 MG Tab PO SCH (08:59)
[2018-03-17] MEDS: amLODIPine 2.5 MG Tab PO SCH (08:59)
[2018-03-17] MEDS: Polyethylene Glycol 3350 Powder 17 GM Packet PO SCH (08:59)
[2018-03-17] MEDS: oxyCODONE 5 MG Tab PO SCH (08:59)
[2018-03-17] MEDS: Enoxaparin 40 MG/0.4 ML Syringe SUBCUT SCH (09:00)
[2018-03-17] MEDS: Sodium Chloride/Potassium Chloride Tab PO SCH ×2 (09:00→21:09)
--- NOTE | 2018-03-17 12:34 | CT ---
Head CT Technique: Multiple axial sections through the brain were obtained. Intravenous contrast was not utilized. Comparison: Prior head CT study of 12/17/15. Findings: Findings compatible with old infarct in the distribution of the right middle cerebral artery are noted. Previous right-sided craniotomy is seen. Ex vacuole enlargement is noted of the right lateral ventricle. Left ventricle is moderately dilated. No intracranial hemorrhage is seen. No midline shift or mass effect is seen. No acute calvarial abnormality is seen. Impression: 1. Prior infarct in the distribution of the right middle cerebral artery. 2. Previous right-sided craniotomy. 3. No acute intracranial abnormality is seen. Diagnostic code #3 I agree with preliminary report from [facility], finalized at 03/13/18, 5:06 AM Central Time
--- NOTE | 2018-03-17 12:34 | CT ---
CT cervical spine Technique: Multiple axial sections were obtained from above C1 inferiorly to the mid T1 level. Reconstructed sagittal and coronal images were reviewed. Comparison: No prior cervical spine imaging. Findings: Moderate disc space narrowing is noted at C4-C5 and C5-C6. Mild disc space narrowing is noted at C3-C4. Vertebral body heights are maintained. Moderate to severe right-sided neural foraminal stenosis is noted at C5-C6 and severe left-sided neural foraminal stenosis is noted at C5-C6. Mild right-sided neural foraminal stenosis is noted at C4-C5 and moderate left-sided neural foraminal stenosis is noted at C4-C5. Other neural foramina are patent. No bony central canal stenosis is seen. Mild diffuse degenerative apophyseal change is seen on both sides. Degenerative spurring is noted within the uncovertebral joints at C3-C4 and more prominently at C4-C5 and C5-C6. No fracture or abnormal subluxation is seen. Impression: 1. Degenerative change as noted above. Nothing acute is appreciated on CT study of the cervical spine. Diagnostic code #2 I agree with preliminary report from [facility], finalized at 03/13/18, 5:07 AM Central Time
[2018-03-17] MEDS ORDERED: Hypromellose 0.5% Ophth Soln 15 ML Bottle EYEBOTH PRN (13:26)
--- NOTE | 2018-03-17 13:35 | PCM.PN ---
- General Info Date of Service: 03/17/18 Admission Dx/Problem (Free Text): Admission Diagnosis/Problem Admission Diagnosis/Problem Seizure disorder Functional Status: Reports: Pain Controlled, Tolerating Diet, Ambulating, Urinating. Denies: New Symptoms - Review of Systems General: Reports: No Symptoms. Denies: Fever, Weakness, Fatigue, Malaise HEENT: Reports: Other (Itchy eyes ) Pulmonary: Reports: No Symptoms. Denies: Shortness of Breath, Cough, Sputum, Wheezing Cardiovascular: Reports: No Symptoms. Denies: Chest Pain, Palpitations, Dyspnea on Exertion, Edema Gastrointestinal: Reports: No Symptoms. Denies: Abdominal Pain, Constipation, Diarrhea, Nausea, Vomiting Genitourinary: Reports: No Symptoms Musculoskeletal: Reports: Back Pain (chronic ) Skin: Reports: No Symptoms Neurological: Reports: Pre-Existing Deficit, Difficulty Walking (chronic ), Gait Disturbance (chronic ). Denies: Confusion, Syncope, Trouble Speaking, Weakness Psychiatric: Reports: No Symptoms - Patient Data Vitals - Most Recent: Last Vital Signs Temp 97.9 F 03/17/18 08:52 Pulse 79 03/17/18 08:57 Resp 18 03/17/18 08:52 BP 131/89 03/17/18 08:59 Pulse Ox 95 03/17/18 08:52 Weight - Most Recent: 197 lb 7 oz I&O - Last 24 Hours: Intake & Output 03/16/18 03/17/18 03/17/18 22:59 06:59 14:59 Intake Total 490 150 120 Output Total 400 550 Balance 90 -400 120 Lab Results Last 24 Hours: Laboratory Results - last 24 hr 03/17/18 03/17/18 Range/Units 05:40 05:40 WBC 5.17 (4.23-9.07) K/mm3 RBC 5.52 (4.63-6.08) M/mm3 Hgb 15.7 (13.7-17.5) gm/L Hct 46.6 (40.1-51.0) % MCV 84.4 (79.0-92.2) fl MCH 28.4 (25.7-32.2) pg MCHC 33.7 (32.2-35.5) g/dl RDW Std Deviation 41.1 (35.1-43.9) fL Plt Count 174 (163-337) K/mm3 MPV 11.4 (9.4-12.3) fl Neut % (Auto) 57.2 (34.0-67.9) % Lymph % (Auto) 30.2 (21.8-53.1) % [place] % (Auto) 9.3 (5.3-12.2) % Eos % (Auto) 2.9 (0.8-7.0) Baso % (Auto) 0.2 (0.1-1.2) % Neut # (Auto) 2.96 (1.78-5.38) K/mm3 Lymph # (Auto) 1.56 (1.32-3.57) K/mm3 [place] # (Auto) 0.48 (0.30-0.82) K/mm3 Eos # (Auto) 0.15 (0.04-0.54) K/mm3 Baso # (Auto) 0.01 (0.01-0.08) K/mm3 Sodium 141 (136-145) mEq/L Potassium 4.3 (3.5-5.1) mEq/L Chloride 106 (98-107) mEq/L Carbon Dioxide 25 (21-32) mEq/L Anion Gap 14.3 (5-15) BUN 16 (7-18) mg/dL Creatinine 0.7 (0.7-1.3) mg/dL Est Cr Clr Drug Dosing 128.93 mL/min Estimated GFR (MDRD) > 60 (>60) mL/min BUN/Creatinine Ratio 22.9 H (14-18) Glucose 103 (74-106) mg/dL Calcium 8.6 (8.5-10.1) mg/dL Magnesium 2.1 (1.8-2.4) mg/dl Med Orders - Current: Current Medications Acetaminophen (Tylenol) 650 mg PO Q4H PRN PRN Reason: Pain (Mild 1-3)/fever Acetaminophen (Tylenol) 650 mg PO BID DEVORA Last Admin: 03/17/18 08:58 Dose: 650 mg Hydrocodone Bitart/Acetaminophen ([place] 325-5 Mg) 1 tab PO Q4H PRN PRN Reason: Pain (moderate 4-6) Albuterol/Ipratropium (Duoneb 3.0-0.5 Mg/3 Ml) 3 ml NEB Q4H PRN PRN Reason: Shortness Of Breath/wheezing Amlodipine Besylate (Norvasc) 2.5 mg PO DAILY [facility] Last Admin: 03/17/18 08:59 Dose: 2.5 mg Artificial Tears (Isopto Tears 0.5% Ophth Soln) 0 ml EYEBOTH Q4H PRN PRN Reason: Pain Baclofen (Lioresal) 10 mg PO DAILY [facility] Last Admin: 03/17/18 08:58 Dose: 10 mg Bisacodyl (Dulcolax) 5 mg PO DAILY PRN PRN Reason: Constipation Calcium Carbonate (Calcium Carbonate/Vitamin D 600 Mg-200 Unit) 1 tab PO DAILY [facility] Last Admin: 03/17/18 08:59 Dose: 1 tab Docusate Sodium (Colace) 100 mg PO BID PRN PRN Reason: Constipation Enoxaparin Sodium (Lovenox) 40 mg SUBCUT DAILY [facility] Last Admin: 03/17/18 09:00 Dose: 40 mg Folic Acid (Folic Acid) 1 mg PO DAILY [facility] Last Admin: 03/17/18 08:59 Dose: 1 mg Hydralazine HCl (Apresoline) 20 mg IVPUSH Q4H PRN PRN Reason: Hypertension Hydromorphone HCl (Dilaudid) 0.5 mg IVPUSH Q2H PRN PRN Reason: Pain (severe 7-10) Promethazine HCl 12.5 mg/ (Sodium Chloride) 50.5 mls @ 100 mls/hr IV Q6H PRN PRN Reason: Nausea/Vomiting Levetiracetam (Keppra) 500 mg PO BID [facility] Last Admin: 03/17/18 08:58 Dose: 500 mg Loperamide HCl (Imodium) 2 mg PO 6XDAY PRN PRN Reason: Diarrhea Lorazepam (Ativan) 2 mg IVPUSH Q4H PRN PRN Reason: Seizures Lorazepam (Ativan) 1 mg IV Q6H PRN PRN Reason: Anxiety Magnesium Hydroxide (Milk Of Magnesia) 30 ml PO Q12H PRN PRN Reason: Constipation Magnesium Oxide (Magnesium Oxide) 400 mg PO TID [facility] Last Admin: 03/17/18 08:58 Dose: 400 mg Magnesium Sulfate (Pharmacy To Dose - Magnesium Replacement) 0 dose .XX ASDIRECTED PRN PRN Reason: RX TO WATCH MAG LEVELS Metoprolol Tartrate (Lopressor) 5 mg IVPUSH Q4H PRN PRN Reason: Tachycardia Metoprolol Tartrate (Lopressor) 25 mg PO BID [facility] Last Admin: 03/17/18 08:57 Dose: 25 mg Mirtazapine (Remeron) 30 mg PO BEDTIME [facility] Last Admin: 03/16/18 20:30 Dose: 30 mg Miscellaneous Information (Remove Patch) 0 ea TRDERM DAILY [facility] Last Admin: 03/17/18 09:00 Dose: Not Given Nicotine (Habitrol) 21 mg TRDERM DAILY PRN PRN Reason: Nicotine Dependence Ondansetron HCl (Zofran) 4 mg IV Q6H PRN PRN Reason: Nausea/Vomiting Oral Electrolytes (Thermotabs) 4 each PO BID [facility] Last Admin: 03/17/18 09:00 Dose: 4 each Oxycodone HCl (Oxycodone) 5 mg PO DAILY [facility] Last Admin: 03/17/18 08:59 Dose: 5 mg Polyethylene Glycol (Miralax) 17 gm PO DAILY PRN PRN Reason: Constipation Polyethylene Glycol (Miralax) 17 gm PO DAILY [facility] Last Admin: 03/17/18 08:59 Dose: 17 gm Potassium Chloride (Pharmacy To Dose - Potassium Replacement) 0 dose .XX ASDIRECTED PRN PRN Reason: RX TO WATCH K LEVELS Saccharomyces Boulardii (Florastor) 250 mg PO DAILY [facility] Last Admin: 03/17/18 08:58 Dose: 250 mg Senna/Docusate Sodium (Senna Plus) 1 tab PO BID PRN PRN Reason: Constipation Senna/Docusate Sodium (Senna Plus) 2 tab PO DAILY [facility] Last Admin: 03/17/18 08:58 Dose: 2 tab Simethicone (Simethicone) 80 mg PO Q6H PRN PRN Reason: Gas Simvastatin (Zocor) 10 mg PO BEDTIME [facility] Last Admin: 03/16/18 20:29 Dose: 10 mg Discontinued Medications Diphtheria/Tetanus/Acell Pertussis (Adacel) 0.5 ml IM .ONCE ONE Stop: 03/13/18 05:06 Last Admin: 03/13/18 05:29 Dose: 0.5 ml Sodium Chloride (Normal Saline) 1,000 mls @ 125 mls/hr IV ASDIRECTED [facility] Last Admin: 03/14/18 06:14 Dose: 125 mls/hr Magnesium Sulfate 2 gm/ Premix 50 mls @ 25 mls/hr IV ONETIME ONE Stop: 03/14/18 12:29 Last Admin: 03/14/18 10:10 Dose: 25 mls/hr Lidocaine/Epinephrine (Xylocaine 1% With Epinephrine 1:100,000) Confirm Administered Dose 20 ml .ROUTE .STK-MED ONE Stop: 03/13/18 04:51 Last Admin: 03/13/18 05:07 Dose: Not Given Lidocaine/Epinephrine (Xylocaine 1% With Epinephrine 1:100,000) 20 ml INJECT ONETIME ONE Stop: 03/13/18 05:02 Last Admin: 03/13/18 05:02 Dose: 20 ml Lorazepam (Ativan) Confirm Administered Dose 4 mg .ROUTE .STK-MED ONE Stop: 03/13/18 03:05 Last Admin: 03/13/18 11:15 Dose: Not Given Lorazepam (Ativan) Confirm Administered Dose 4 mg .ROUTE .STK-MED ONE Stop: 03/13/18 03:16 Last Admin: 03/13/18 11:15 Dose: Not Given Lorazepam (Ativan) 3 mg IVPUSH ONETIME ONE Stop: 03/13/18 03:06 Last Admin: 03/13/18 03:05 Dose: 3 mg Potassium Chloride (Klor-Con M20) 40 meq PO Q4H [facility]ORA Stop: 03/13/18 13:01 Last Admin: 03/13/18 12:37 Dose: 40 meq - Exam Quality Assessment: DVT Prophylaxis General: Alert, Oriented, Cooperative, No Acute Distress HEENT: Pupils Equal, Pupils Reactive, EOMI, Mucous Membr. Moist/[place] Neck: Supple, Trachea Midline, No JVD Lungs: Clear to Auscultation, Normal Respiratory Effort Cardiovascular: Regular Rate, Regular Rhythm GI/Abdominal Exam: Normal Bowel Sounds, Soft, Non-Tender, No Organomegaly, No Distention, No Abnormal Bruit, No Mass, Pelvis Stable (Male) Exam: Deferred Back Exam: Normal Inspection, Full Range of Motion, Decreased Range of Motion Extremities: Non-Tender, No Pedal Edema, Normal Capillary Refill, Limited Range of Motion, Other (difficulty opening up hand and moving leg on left side. ) Peripheral Pulses: 2+: Dorsalis Pedis (L), Dorsalis Pedis (R), 3+: Radial (L), Radial (R) Skin: Warm, Dry, Intact, Other (Laceration to forehead, upper lip, and bridge of nose ) Wound/Incisions: Healing Well, No Drainage, Erythema Improving Neurological: No New Focal Deficit Psy/Mental Status: Alert, Normal Affect, Normal Mood - Problem List & Annotations (1) Abrasions of multiple sites SNOMED Code(s): 996662163, 978452962 Code(s): T14.8 - OTHER INJURY OF UNSPECIFIED BODY REGION * DO NOT USE * Status: Acute Priority: High Current Visit: Yes (2) Head contusion SNOMED Code(s): 666283950, 515133619 Code(s): S00.93XA - CONTUSION OF UNSPECIFIED PART OF HEAD, INITIAL ENCOUNTER Status: Acute Priority: High Current Visit: Yes Qualifiers: Encounter type: initial encounter Contusion of head detail: other part of head Qualified Code(s): S00.83XA - Contusion of other part of head, initial encounter (3) Seizures SNOMED Code(s): 15292077 Code(s): R56.9 - UNSPECIFIED CONVULSIONS Status: Acute Priority: High Current Visit: Yes - Problem List Review Problem List Initiated/Reviewed/Updated: Yes - My Orders Last 24 Hours: My Active Orders 03/17/18 13:26 Hypromellose [Isopto Tears 0.5% Ophth Soln] 0 ml EYEBOTH Q4H PRN - Assessment Assessment:: Assessment/Plan: Acute: Acute on Chronic - Seizure Disorder, Stable * Apparent seizure with fall/injury at [facility] facility early 03/13 * Event was unwitnessed - unknown if LOC * Prior history of seizure disorder and brain injury * Likely secondary to inadequate Keppra - inability to take medications * ER workup * Vitals - initial tachycardia and hypertension; now stable * Initial labs - elevated anion gap, reduced BUN/Cr ratio; mildly elevated glucose; no other abnormal findings * Head/spine CT showed no new abnormalities * Facial lacerations were sutured * dtap vaccine administered * Admitted to ICU for further management * IVF, supplemental O2, telemetry * Lorazepam for seizures * DVT prophylaxis enoxaparin * Screening to determine blood levels of Keppra pending * UA ordered to r/o UTI; drug and alcohol screening Facial lacerations, Stable * Secondary to traumatic fall * Lacerations on forehead, nose, and upper lip * Received treatment in the emergency department * Continue wound care Resolved: Status post-fall * Secondary to acute seizure * Multiple facial lacerations * Possible head injury r/o - CT was benign * Fall precautions S/p Hyperglycemia * 128--> 113--> 106 * He is Pre-Diabetes with A1C of 6.1 S/p Mild Hypomagnesemia * Mg level is 1.7--> 1.7--> 1.9 * 2/2 inadequate intake * Replete and monitor Chronic: HTN HLD Urinary Incontinence Hemiplegia Bakc Pain Hx/o CVA Brain Injury Hx/o CVA Hx/o Spinal Fusion Hx/o MRSA Hypantrenmia Depression Constipation Plan: He remains clinically stable Seizure Precautions Continue current treatment Routine AM Labs SW/CM for d/c planning Code status:1 Los > 96 hrs pending Keppra level - Plan Plan:: Assessment/Plan: Acute: Acute on Chronic - Seizure Disorder, Stable * Apparent seizure with fall/injury at [facility] facility early 03/13 * Event was unwitnessed - unknown if LOC * Prior history of seizure disorder and brain injury * Likely secondary to inadequate Keppra - inability to take medications * ER workup * Vitals - initial tachycardia and hypertension; now stable * Initial labs - elevated anion gap, reduced BUN/Cr ratio; mildly elevated glucose; no other abnormal findings * Head/spine CT showed no new abnormalities * Facial lacerations were sutured * dtap vaccine administered * Admitted to ICU for further management -> downgraded to M/S/P * IVF, supplemental O2, telemetry * Lorazepam for seizures * DVT prophylaxis enoxaparin * Screening to determine blood levels of Keppra pending * UA ordered to r/o UTI--> negative; drug and alcohol screening ->only positive for benzos, negative ETOH Facial lacerations, Stable * Secondary to traumatic fall * Lacerations on forehead, nose, and upper lip * Received treatment in the emergency department * Continue wound care Resolved: Status post-fall * Secondary to acute seizure * Multiple facial lacerations * Possible head injury r/o - CT was benign * Fall precautions S/p Hyperglycemia * 128--> 113--> 106 * He is Pre-Diabetes with A1C of 6.1 S/p Mild Hypomagnesemia * Mg level is 1.7--> 1.7--> 1.9 * 2/2 inadequate intake * Replete and monitor Chronic: HTN HLD Urinary Incontinence Hemiplegia Bakc Pain Hx/o CVA Brain Injury Hx/o CVA Hx/o Spinal Fusion Hx/o MRSA Hypantrenmia Depression Constipation Plan: He remains clinically stable Was downgraded to M/S/P status Seizure Precautions Consult Dr. Bess: Query OCD Continue current treatment Routine AM Labs SW/CM for d/c planning Code status: Full code; PCP: Dr. Reed Los > 96 hrs pending [facility]
--- NOTE | 2018-03-17 14:07 | CT ---
CT facial bones Technique: Multiple axial sections through the facial bones were obtained. Reconstructed coronal and sagittal images were reviewed. Findings: Mild motion artifact is seen. Comparison: Prior head CT study performed earlier on same day (3:48 AM). Deformity from old nasal bone fracture is seen. Mild mucosal thickening is seen inferiorly within the right maxillary sinus. Previous right-sided craniotomy is noted. There is the appearance of a fractured right-sided maxillary incisor. No acute facial bone fracture is seen. Impression: 1. Findings felt compatible with deformity from old nasal bone fracture. 2. Possible fractured right maxillary incisor, please correlate if this is acute. 3. No additional facial bone abnormality is seen. Other incidental findings. Diagnostic code #3 I agree with preliminary report from [facility], finalized at 03/13/18, 5:09 AM Central Time
[2018-03-17] MEDS: Simvastatin 10 MG Tab PO SCH (21:09)
[2018-03-17] MEDS: Mirtazapine 30 MG Tab PO SCH (21:10)
[2018-03-18] MEDS ORDERED: Citalopram 20 MG Tab PO SCH (09:00)
--- NOTE | 2018-03-18 09:31 | PCM.DCSUM1 ---
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 He apparently had an unwitnessed seizure and fell, suffering several lacerations to his face. He does have a history of brain injury and seizure disorder. CT scan of the head and spine was ordered in the ER, which showed no new findings and no acute abnormalities, other than possible recent loss of tooth. Lacerations were sutured in the ER. Patient states it has been "a long while" since his last seizure. He says he took his seizure medications the evening prior to the event but that he vomited them up. He says he thinks he was given more medication afterwards. He is unable to state what medications he is taking. He is a poor historian due to confusion, being in post-ictal state and having history of brain injury. He understands that he has a seizure disorder and brain injury but is unable to elaborate further. It is unknown whether or not he lost consciousness. He is being admitted for further management of his seizure disorder following acute epileptic event. Diagnosis: Stroke: No - Discharge Data Discharge Date: 03/18/18 (Admit date: 03/13/18) Discharge Disposition: DC/Tfer to SNF 03 Condition: Good - Discharge Diagnosis/Problem(s) (1) Abrasions of multiple sites SNOMED Code(s): 151569601, 677751084 ICD Code: T14.8 - OTHER INJURY OF UNSPECIFIED BODY REGION * DO NOT USE * Status: Acute Priority: High Current Visit: Yes (2) Head contusion SNOMED Code(s): 700392821, 212354344 ICD Code: S00.93XA - CONTUSION OF UNSPECIFIED PART OF HEAD, INITIAL ENCOUNTER Status: Acute Priority: High Current Visit: Yes Qualifiers: Encounter type: initial encounter Contusion of head detail: other part of head Qualified Code(s): S00.83XA - Contusion of other part of head, initial encounter (3) Seizures SNOMED Code(s): 46459352 ICD Code: R56.9 - UNSPECIFIED CONVULSIONS Status: Acute Priority: High Current Visit: Yes - Patient Summary/Data Consults: Consultations 03/13/18 17:31 Consult to Case Management [CONS] Routine Consult to Theater Manager [CONS] Routine OT Evaluation and Treatment [CONS] Routine PT Evaluation and Treatment [CONS] Routine 03/17/18 12:24 Consult to Physician [CONS] Routine Labs Pending at D/C: Keppra Level Recommended Follow-up Testing/Procedures: Follow-up with PCP within 7-10 days of discharge. Hospital Course: Assessment/Plan: Acute: Acute on Chronic - Seizure Disorder, Stable * Apparent seizure with fall/injury at [facility] facility early 03/13 * Event was unwitnessed - unknown if LOC * Prior history of seizure disorder and brain injury * Likely secondary to inadequate Keppra - inability to take medications * ER workup * Vitals - initial tachycardia and hypertension; now stable * Initial labs - elevated anion gap, reduced BUN/Cr ratio; mildly elevated glucose; no other abnormal findings * Head/spine CT showed no new abnormalities * Facial lacerations were sutured * dtap vaccine administered * Admitted to ICU for further management -> downgraded to M/S/P * IVF, supplemental O2, telemetry * Lorazepam for seizures * DVT prophylaxis enoxaparin * Screening to determine blood levels of Keppra pending * UA ordered to r/o UTI--> negative; drug and alcohol screening ->only positive for benzos, negative ETOH Facial lacerations, Stable * Secondary to traumatic fall * Lacerations on forehead, nose, and upper lip * Received treatment in the emergency department * Continue wound care Resolved: Status post-fall * Secondary to acute seizure * Multiple facial lacerations * Possible head injury r/o - CT was benign * Fall precautions S/p Hyperglycemia * 128--> 113--> 106 * He is Pre-Diabetes with A1C of 6.1 S/p Mild Hypomagnesemia * Mg level is 1.7--> 1.7--> 1.9 * 2/2 inadequate intake * Replete and monitor Chronic: HTN HLD Urinary Incontinence Hemiplegia Bakc Pain Hx/o CVA Brain Injury Hx/o CVA Hx/o Spinal Fusion Hx/o MRSA Hypantrenmia Depression Constipation Plan: He remains clinically stable Was downgraded to M/S/P status Seizure Precautions Consult Dr. Bess: Query OCD Continue current treatment Routine AM Labs SW/CM for d/c planning Code status: Full code; PCP: Dr. Reed Los > 96 hrs pending Keppra level Overall Sulaiman did quite well. He reportedly vomited up his medications at [facility] and later was found after an unwitnessed seizure. He had a few lacerations which were sutured in the ED and it is recommended they be removed 8 days after being seen in the ED (03/13/18). He was given a Tdap vaccination. He did have another seizure in the ED. Head CT was negative in the ED. Keppra level was obtained but unfortunately with the long holiday it has still not returned. Lab reports it could still be several days. EEG was ordered today and results are pending. These will be forwarded to his PCP. While he we did notice some possibly OCD tenancies. It is suggested that he follow-up outpatient to explore this further if needed. His magnesium was low and was supplemented. Infectious workup was ruled out as cause of seizure and he has had no symptoms here including nausea or vomiting. A1C was obtained and is 6.1. This should be monitored by his PCP. His home medications were continued unchanged. He was instructed to follow-up with his PCP within 7-10 days of discharge, sooner if needed. He should also follow-up with neurology. - Patient Instructions Diet: Regular Diet as Tolerated Activity: As Tolerated Driving: Do Not Drive Notify Provider of: Fever, Increased Pain, Nausea and/or Vomiting Other/Special Instructions: -Follow-up with your PCP within 7-10 days of discharge, sooner if needed. -Follow-up with neurology after discharge. -We will attempt to obtain an EEG prior to discharge. If not one will be scheduled for you outpatient. -Resume all home medications. -If symptoms return contact your primary care provider, come to a walk-in clinic, or return to the ED. - Continue working with PT/OT. -Folow up with outpatient psychiatry as needed after discharge. -Your sutures were placed on 03/13/18. These should remain in place for a total of 8 days and then they should be removed. - Discharge Plan *PRESCRIPTION DRUG MONITORING PROGRAM REVIEWED*: No *COPY OF PRESCRIPTION DRUG MONITORING REPORT IN PATIENT MILAN: No Home Medications: Home Meds Acetaminophen 650 mg PO BID 12/17/15 [History] Baclofen 10 mg PO DAILY 12/17/15 [History] Folic Acid 1 mg PO DAILY 12/17/15 [History] Lactobacillus Acidophilus [Acidophilus Lactobacillus] 1 each PO DAILY 12/17/15 [ History] Loperamide HCl [Loperamide] 2 mg PO 6XDAY PRN 12/17/15 [History] Metoprolol Tartrate 25 mg PO BID 12/17/15 [History] Mirtazapine 30 mg PO BEDTIME 12/17/15 [History] Sodium Chloride 2 gm PO BID 12/17/15 [History] levETIRAcetam [Keppra] 500 mg PO BID 12/17/15 [History] oxyCODONE 5 mg PO DAILY 12/17/15 [History] Sennosides/Docusate Sodium [Senna Plus Tablet] 2 tab PO DAILY 11/06/16 [History] Calcium Carbonate/Vitamin D3 [Calcium Carb 500 MG] 1,250 mg PO DAILY 03/13/18 [ History] Escitalopram [Lexapro] 10 mg PO DAILY 03/13/18 [History] Polyethylene Glycol 3350 [MiraLAX] 17 gm PO DAILY 03/13/18 [History] amLODIPine Besylate [Norvasc] 2.5 mg PO DAILY 03/13/18 [History] atorvaSTATin [Lipitor] 10 mg PO BEDTIME 03/13/18 [History] Patient Handouts: Seizure, Adult Referrals: Bill Reed MD [Primary Care Provider] - (Make an appointment for follow-up in 7-10 days.) - Discharge Summary/Plan Comment DC Time >30 min.: Yes (45 mins ) - General Info Date of Service: 03/18/18 Admission Dx/Problem (Free Text: Admission Diagnosis/Problem Admission Diagnosis/Problem Seizure disorder Subjective Update: In to see Sulaiman. He is sitting in the chair watching TV. He has no concerns or complaints. He says he feels good. He is excited to go back to [facility]. He denies any seizure activity while on the floor. Keppra level from admission is still pending. He will be discharged today. Functional Status: Reports: Pain Controlled, Tolerating Diet, Ambulating, Urinating. Denies: New Symptoms - Review of Systems General: Reports: No Symptoms. Denies: Fever, Weakness, Fatigue, Malaise HEENT: Reports: No Symptoms. Denies: Sore Throat Pulmonary: Reports: No Symptoms. Denies: Shortness of Breath, Cough, Sputum, Wheezing Cardiovascular: Reports: No Symptoms. Denies: Chest Pain, Palpitations, Dyspnea on Exertion Gastrointestinal: Reports: No Symptoms. Denies: Abdominal Pain, Constipation, Diarrhea, Nausea, Vomiting Genitourinary: Reports: No Symptoms Musculoskeletal: Reports: Back Pain (chronic ) Skin: Reports: No Symptoms Neurological: Reports: Pre-Existing Deficit, Difficulty Walking (chronic ), Gait Disturbance (chronic ). Denies: Weakness Psychiatric: Reports: No Symptoms. Denies: Confusion, Depression - Patient Data Vitals - Most Recent: Last Vital Signs Temp 97.5 F 03/18/18 03:25 Pulse 60 03/18/18 03:25 Resp 14 03/18/18 03:25 BP 138/77 03/18/18 03:25 Pulse Ox 89 L 03/18/18 03:25 Weight - Most Recent: 88.995 kg I&O - Last 24 hours: Intake & Output 03/17/18 03/18/18 03/18/18 22:59 06:59 14:59 Intake Total 500 300 Output Total 200 500 Balance 300 -200 Lab Results - Last 24 hrs: Laboratory Results - last 24 hr 03/18/18 03/18/18 Range/Units 06:10 06:10 WBC 4.66 (4.23-9.07) K/mm3 RBC 5.49 (4.63-6.08) M/mm3 Hgb 15.6 (13.7-17.5) gm/L Hct 47.7 (40.1-51.0) % MCV 86.9 (79.0-92.2) fl MCH 28.4 (25.7-32.2) pg MCHC 32.7 (32.2-35.5) g/dl RDW Std Deviation 42.6 (35.1-43.9) fL Plt Count 177 (163-337) K/mm3 MPV 11.0 (9.4-12.3) fl Neut % (Auto) 55.4 (34.0-67.9) % Lymph % (Auto) 30.5 (21.8-53.1) % [place] % (Auto) 9.0 (5.3-12.2) % Eos % (Auto) 4.7 (0.8-7.0) Baso % (Auto) 0.2 (0.1-1.2) % Neut # (Auto) 2.58 (1.78-5.38) K/mm3 Lymph # (Auto) 1.42 (1.32-3.57) K/mm3 [place] # (Auto) 0.42 (0.30-0.82) K/mm3 Eos # (Auto) 0.22 (0.04-0.54) K/mm3 Baso # (Auto) 0.01 (0.01-0.08) K/mm3 Sodium 143 (136-145) mEq/L Potassium 4.4 (3.5-5.1) mEq/L Chloride 107 (98-107) mEq/L Carbon Dioxide 26 (21-32) mEq/L Anion Gap 14.4 (5-15) BUN 19 H (7-18) mg/dL Creatinine 0.8 (0.7-1.3) mg/dL Est Cr Clr Drug Dosing 112.81 mL/min Estimated GFR (MDRD) > 60 (>60) mL/min BUN/Creatinine Ratio 23.8 H (14-18) Glucose 104 (74-106) mg/dL Calcium 8.6 (8.5-10.1) mg/dL Magnesium 2.2 (1.8-2.4) mg/dl Med Orders - Current: Current Medications Acetaminophen (Tylenol) 650 mg PO Q4H PRN PRN Reason: Pain (Mild 1-3)/fever Acetaminophen (Tylenol) 650 mg PO BID [facility] Last Admin: 03/17/18 21:09 Dose: 650 mg Hydrocodone Bitart/Acetaminophen ([place] 325-5 Mg) 1 tab PO Q4H PRN PRN Reason: Pain (moderate 4-6) Albuterol/Ipratropium (Duoneb 3.0-0.5 Mg/3 Ml) 3 ml NEB Q4H PRN PRN Reason: Shortness Of Breath/wheezing Amlodipine Besylate (Norvasc) 2.5 mg PO DAILY [facility] Last Admin: 03/17/18 08:59 Dose: 2.5 mg Artificial Tears (Isopto Tears 0.5% Ophth Soln) 0 ml EYEBOTH Q4H PRN PRN Reason: Pain Baclofen (Lioresal) 10 mg PO DAILY [facility] Last Admin: 03/17/18 08:58 Dose: 10 mg Bisacodyl (Dulcolax) 5 mg PO DAILY PRN PRN Reason: Constipation Calcium Carbonate (Calcium Carbonate/Vitamin D 600 Mg-200 Unit) 1 tab PO DAILY [facility] Last Admin: 03/17/18 08:59 Dose: 1 tab Citalopram Hydrobromide (Celexa) 20 mg PO DAILY [facility] Docusate Sodium (Colace) 100 mg PO BID PRN PRN Reason: Constipation Enoxaparin Sodium (Lovenox) 40 mg SUBCUT DAILY [facility] Last Admin: 03/17/18 09:00 Dose: 40 mg Folic Acid (Folic Acid) 1 mg PO DAILY [facility] Last Admin: 03/17/18 08:59 Dose: 1 mg Hydralazine HCl (Apresoline) 20 mg IVPUSH Q4H PRN PRN Reason: Hypertension Hydromorphone HCl (Dilaudid) 0.5 mg IVPUSH Q2H PRN PRN Reason: Pain (severe 7-10) Promethazine HCl 12.5 mg/ (Sodium Chloride) 50.5 mls @ 100 mls/hr IV Q6H PRN PRN Reason: Nausea/Vomiting Levetiracetam (Keppra) 500 mg PO BID [facility] Last Admin: 03/17/18 21:09 Dose: 500 mg Loperamide HCl (Imodium) 2 mg PO 6XDAY PRN PRN Reason: Diarrhea Lorazepam (Ativan) 2 mg IVPUSH Q4H PRN PRN Reason: Seizures Lorazepam (Ativan) 1 mg IV Q6H PRN PRN Reason: Anxiety Magnesium Hydroxide (Milk Of Magnesia) 30 ml PO Q12H PRN PRN Reason: Constipation Magnesium Oxide (Magnesium Oxide) 400 mg PO TID [facility] Last Admin: 03/17/18 21:09 Dose: 400 mg Metoprolol Tartrate (Lopressor) 5 mg IVPUSH Q4H PRN PRN Reason: Tachycardia Metoprolol Tartrate (Lopressor) 25 mg PO BID [facility] Last Admin: 03/17/18 21:09 Dose: 25 mg Mirtazapine (Remeron) 30 mg PO BEDTIME [facility] Last Admin: 03/17/18 21:10 Dose: 30 mg Miscellaneous Information (Remove Patch) 0 ea TRDERM DAILY [facility] Last Admin: 03/17/18 09:00 Dose: Not Given Nicotine (Habitrol) 21 mg TRDERM DAILY PRN PRN Reason: Nicotine Dependence Ondansetron HCl (Zofran) 4 mg IV Q6H PRN PRN Reason: Nausea/Vomiting Last Admin: 03/17/18 21:39 Dose: 4 mg Oral Electrolytes (Thermotabs) 4 each PO BID [facility] Last Admin: 03/17/18 21:09 Dose: 4 each Oxycodone HCl (Oxycodone) 5 mg PO DAILY [facility] Last Admin: 03/17/18 08:59 Dose: 5 mg Polyethylene Glycol (Miralax) 17 gm PO DAILY PRN PRN Reason: Constipation Polyethylene Glycol (Miralax) 17 gm PO DAILY [facility] Last Admin: 03/17/18 08:59 Dose: 17 gm Saccharomyces Boulardii (Florastor) 250 mg PO DAILY [facility] Last Admin: 03/17/18 08:58 Dose: 250 mg Senna/Docusate Sodium (Senna Plus) 1 tab PO BID PRN PRN Reason: Constipation Senna/Docusate Sodium (Senna Plus) 2 tab PO DAILY [facility] Last Admin: 03/17/18 08:58 Dose: 2 tab Simethicone (Simethicone) 80 mg PO Q6H PRN PRN Reason: Gas Simvastatin (Zocor) 10 mg PO BEDTIME [facility] Last Admin: 03/17/18 21:09 Dose: 10 mg Discontinued Medications Diphtheria/Tetanus/Acell Pertussis (Adacel) 0.5 ml IM .ONCE ONE Stop: 03/13/18 05:06 Last Admin: 03/13/18 05:29 Dose: 0.5 ml Sodium Chloride (Normal Saline) 1,000 mls @ 125 mls/hr IV ASDIRECTED [facility] Last Admin: 03/14/18 06:14 Dose: 125 mls/hr Magnesium Sulfate 2 gm/ Premix 50 mls @ 25 mls/hr IV ONETIME ONE Stop: 03/14/18 12:29 Last Admin: 03/14/18 10:10 Dose: 25 mls/hr Lidocaine/Epinephrine (Xylocaine 1% With Epinephrine 1:100,000) Confirm Administered Dose 20 ml .ROUTE .STK-MED ONE Stop: 03/13/18 04:51 Last Admin: 03/13/18 05:07 Dose: Not Given Lidocaine/Epinephrine (Xylocaine 1% With Epinephrine 1:100,000) 20 ml INJECT ONETIME ONE Stop: 03/13/18 05:02 Last Admin: 03/13/18 05:02 Dose: 20 ml Lorazepam (Ativan) Confirm Administered Dose 4 mg .ROUTE .STK-MED ONE Stop: 03/13/18 03:05 Last Admin: 03/13/18 11:15 Dose: Not Given Lorazepam (Ativan) Confirm Administered Dose 4 mg .ROUTE .STK-MED ONE Stop: 03/13/18 03:16 Last Admin: 03/13/18 11:15 Dose: Not Given Lorazepam (Ativan) 3 mg IVPUSH ONETIME ONE Stop: 03/13/18 03:06 Last Admin: 03/13/18 03:05 Dose: 3 mg Magnesium Sulfate (Pharmacy To Dose - Magnesium Replacement) 0 dose .XX ASDIRECTED PRN PRN Reason: RX TO WATCH MAG LEVELS Potassium Chloride (Pharmacy To Dose - Potassium Replacement) 0 dose .XX ASDIRECTED PRN PRN Reason: RX TO WATCH K LEVELS Potassium Chloride (Klor-Con M20) 40 meq PO Q4H [facility] Stop: 03/13/18 13:01 Last Admin: 03/13/18 12:37 Dose: 40 meq - Exam Quality Assessment: Reports: DVT Prophylaxis General: Reports: Alert, Oriented, Cooperative, No Acute Distress HEENT: Reports: Pupils Equal, Pupils Reactive, EOMI, Mucous Membr. Moist/[place] Neck: Reports: Supple, Trachea Midline Lungs: Reports: Clear to Auscultation, Normal Respiratory Effort Cardiovascular: Reports: Regular Rate, Regular Rhythm GI/Abdominal Exam: Normal Bowel Sounds, Soft, Non-Tender, No Distention (Male) Exam: Deferred Rectal (Males) Exam: Deferred Back Exam: Reports: Normal Inspection, Full Range of Motion Extremities: Non-Tender, No Pedal Edema, Normal Capillary Refill, Limited Range of Motion, Other (Difficulty opening left hand and moving left leg - chronic ) Wound/Incisions: Reports: Healing Well, No Drainage, Erythema Improving Neurological: Reports: No New Focal Deficit Psy/Mental Status: Reports: Alert, Normal Affect, Normal Mood <Flor Holloway - Last Filed: 03/18/18 12:38> Discharge Summary - Patient Summary/Data Consults: Consultations 03/13/18 17:31 Consult to Case Management [CONS] Routine Consult to Theater Manager [CONS] Routine OT Evaluation and Treatment [CONS] Routine PT Evaluation and Treatment [CONS] Routine - Discharge Summary/Plan Comment Discharge Summary/Plan Comment: Keppra level WNL; EEG results pre DC are pending - Patient Data Vitals - Most Recent: Last Vital Signs Temp 36.3 C 03/18/18 07:29 Pulse 71 03/18/18 09:52 Resp 22 H 03/18/18 07:29 BP 119/74 03/18/18 09:52 Pulse Ox 94 L 03/18/18 07:29 I&O - Last 24 hours: Intake & Output 03/17/18 03/18/18 03/18/18 22:59 06:59 14:59 Intake Total 500 300 120 Output Total 200 500 Balance 300 -200 120 Lab Results - Last 24 hrs: Laboratory Results - last 24 hr 03/13/18 03/18/18 03/18/18 Range/Units 03:29 06:10 06:10 WBC 4.66 (4.23-9.07) K/mm3 RBC 5.49 (4.63-6.08) M/mm3 Hgb 15.6 (13.7-17.5) gm/L Hct 47.7 (40.1-51.0) % MCV 86.9 (79.0-92.2) fl MCH 28.4 (25.7-32.2) pg MCHC 32.7 (32.2-35.5) g/dl RDW Std Deviation 42.6 (35.1-43.9) fL Plt Count 177 (163-337) K/mm3 MPV 11.0 (9.4-12.3) fl Neut % (Auto) 55.4 (34.0-67.9) % Lymph % (Auto) 30.5 (21.8-53.1) % [place] % (Auto) 9.0 (5.3-12.2) % Eos % (Auto) 4.7 (0.8-7.0) Baso % (Auto) 0.2 (0.1-1.2) % Neut # (Auto) 2.58 (1.78-5.38) K/mm3 Lymph # (Auto) 1.42 (1.32-3.57) K/mm3 [place] # (Auto) 0.42 (0.30-0.82) K/mm3 Eos # (Auto) 0.22 (0.04-0.54) K/mm3 Baso # (Auto) 0.01 (0.01-0.08) K/mm3 Sodium 143 (136-145) mEq/L Potassium 4.4 (3.5-5.1) mEq/L Chloride 107 (98-107) mEq/L Carbon Dioxide 26 (21-32) mEq/L Anion Gap 14.4 (5-15) BUN 19 H (7-18) mg/dL Creatinine 0.8 (0.7-1.3) mg/dL Est Cr Clr Drug Dosing 112.81 mL/min Estimated GFR (MDRD) > 60 (>60) mL/min BUN/Creatinine Ratio 23.8 H (14-18) Glucose 104 (74-106) mg/dL Calcium 8.6 (8.5-10.1) mg/dL Magnesium 2.2 (1.8-2.4) mg/dl Levetiracetam 14.4 (10.0-40.0) ug/mL Med Orders - Current: Current Medications Acetaminophen (Tylenol) 650 mg PO Q4H PRN PRN Reason: Pain (Mild 1-3)/fever Acetaminophen (Tylenol) 650 mg PO BID [facility] Last Admin: 03/18/18 09:51 Dose: 650 mg Hydrocodone Bitart/Acetaminophen ([place] 325-5 Mg) 1 tab PO Q4H PRN PRN Reason: Pain (moderate 4-6) Albuterol/Ipratropium (Duoneb 3.0-0.5 Mg/3 Ml) 3 ml NEB Q4H PRN PRN Reason: Shortness Of Breath/wheezing Amlodipine Besylate (Norvasc) 2.5 mg PO DAILY [facility] Last Admin: 03/18/18 09:52 Dose: 2.5 mg Artificial Tears (Isopto Tears 0.5% Ophth Soln) 0 ml EYEBOTH Q4H PRN PRN Reason: Pain Baclofen (Lioresal) 10 mg PO DAILY [facility] Last Admin: 03/18/18 09:50 Dose: 10 mg Bisacodyl (Dulcolax) 5 mg PO DAILY PRN PRN Reason: Constipation Calcium Carbonate (Calcium Carbonate/Vitamin D 600 Mg-200 Unit) 1 tab PO DAILY [facility] Last Admin: 03/18/18 09:50 Dose: 1 tab Citalopram Hydrobromide (Celexa) 20 mg PO DAILY [facility] Last Admin: 03/18/18 09:50 Dose: 20 mg Docusate Sodium (Colace) 100 mg PO BID PRN PRN Reason: Constipation Enoxaparin Sodium (Lovenox) 40 mg SUBCUT DAILY [facility] Last Admin: 03/18/18 09:52 Dose: 40 mg Folic Acid (Folic Acid) 1 mg PO DAILY [facility] Last Admin: 03/18/18 09:50 Dose: 1 mg Hydralazine HCl (Apresoline) 20 mg IVPUSH Q4H PRN PRN Reason: Hypertension Hydromorphone HCl (Dilaudid) 0.5 mg IVPUSH Q2H PRN PRN Reason: Pain (severe 7-10) Promethazine HCl 12.5 mg/ (Sodium Chloride) 50.5 mls @ 100 mls/hr IV Q6H PRN PRN Reason: Nausea/Vomiting Levetiracetam (Keppra) 500 mg PO BID [facility] Last Admin: 03/18/18 09:51 Dose: 500 mg Loperamide HCl (Imodium) 2 mg PO 6XDAY PRN PRN Reason: Diarrhea Lorazepam (Ativan) 2 mg IVPUSH Q4H PRN PRN Reason: Seizures Lorazepam (Ativan) 1 mg IV Q6H PRN PRN Reason: Anxiety Magnesium Hydroxide (Milk Of Magnesia) 30 ml PO Q12H PRN PRN Reason: Constipation Magnesium Oxide (Magnesium Oxide) 400 mg PO TID [facility] Last Admin: 03/18/18 09:51 Dose: 400 mg Metoprolol Tartrate (Lopressor) 5 mg IVPUSH Q4H PRN PRN Reason: Tachycardia Metoprolol Tartrate (Lopressor) 25 mg PO BID [facility] Last Admin: 03/18/18 09:52 Dose: 25 mg Mirtazapine (Remeron) 30 mg PO BEDTIME [facility] Last Admin: 03/17/18 21:10 Dose: 30 mg Miscellaneous Information (Remove Patch) 0 ea TRDERM DAILY [facility] Last Admin: 03/18/18 09:59 Dose: Not Given Nicotine (Habitrol) 21 mg TRDERM DAILY PRN PRN Reason: Nicotine Dependence Ondansetron HCl (Zofran) 4 mg IV Q6H PRN PRN Reason: Nausea/Vomiting Last Admin: 03/17/18 21:39 Dose: 4 mg Oral Electrolytes (Thermotabs) 4 each PO BID [facility] Last Admin: 03/18/18 09:52 Dose: 4 each Oxycodone HCl (Oxycodone) 5 mg PO DAILY [facility] Last Admin: 03/18/18 09:50 Dose: 5 mg Polyethylene Glycol (Miralax) 17 gm PO DAILY PRN PRN Reason: Constipation Polyethylene Glycol (Miralax) 17 gm PO DAILY [facility] Last Admin: 03/18/18 09:52 Dose: 17 gm Saccharomyces Boulardii (Florastor) 250 mg PO DAILY [facility] Last Admin: 03/18/18 09:50 Dose: 250 mg Senna/Docusate Sodium (Senna Plus) 1 tab PO BID PRN PRN Reason: Constipation Senna/Docusate Sodium (Senna Plus) 2 tab PO DAILY [facility] Last Admin: 03/18/18 09:51 Dose: 2 tab Simethicone (Simethicone) 80 mg PO Q6H PRN PRN Reason: Gas Simvastatin (Zocor) 10 mg PO BEDTIME [facility] Last Admin: 03/17/18 21:09 Dose: 10 mg Discontinued Medications Diphtheria/Tetanus/Acell Pertussis (Adacel) 0.5 ml IM .ONCE ONE Stop: 03/13/18 05:06 Last Admin: 03/13/18 05:29 Dose: 0.5 ml Sodium Chloride (Normal Saline) 1,000 mls @ 125 mls/hr IV ASDIRECTED [facility] Last Admin: 03/14/18 06:14 Dose: 125 mls/hr Magnesium Sulfate 2 gm/ Premix 50 mls @ 25 mls/hr IV ONETIME ONE Stop: 03/14/18 12:29 Last Admin: 03/14/18 10:10 Dose: 25 mls/hr Lidocaine/Epinephrine (Xylocaine 1% With Epinephrine 1:100,000) Confirm Administered Dose 20 ml .ROUTE .STK-MED ONE Stop: 03/13/18 04:51 Last Admin: 03/13/18 05:07 Dose: Not Given Lidocaine/Epinephrine (Xylocaine 1% With Epinephrine 1:100,000) 20 ml INJECT ONETIME ONE Stop: 03/13/18 05:02 Last Admin: 03/13/18 05:02 Dose: 20 ml Lorazepam (Ativan) Confirm Administered Dose 4 mg .ROUTE .STK-MED ONE Stop: 03/13/18 03:05 Last Admin: 03/13/18 11:15 Dose: Not Given Lorazepam (Ativan) Confirm Administered Dose 4 mg .ROUTE .STK-MED ONE Stop: 03/13/18 03:16 Last Admin: 03/13/18 11:15 Dose: Not Given Lorazepam (Ativan) 3 mg IVPUSH ONETIME ONE Stop: 03/13/18 03:06 Last Admin: 03/13/18 03:05 Dose: 3 mg Magnesium Sulfate (Pharmacy To Dose - Magnesium Replacement) 0 dose .XX ASDIRECTED PRN PRN Reason: RX TO WATCH MAG LEVELS Potassium Chloride (Pharmacy To Dose - Potassium Replacement) 0 dose .XX ASDIRECTED PRN PRN Reason: RX TO WATCH K LEVELS Potassium Chloride (Klor-Con M20) 40 meq PO Q4H [facility] Stop: 03/13/18 13:01 Last Admin: 03/13/18 12:37 Dose: 40 meq
[2018-03-18] MEDS: Baclofen 10 MG Tab PO SCH (09:50)
[2018-03-18] MEDS: Saccharomyces Boulardii (Probiotic) 250 MG Cap PO SCH (09:50)
[2018-03-18] MEDS: Folic Acid 1 MG Tab PO SCH (09:50)
[2018-03-18] MEDS: oxyCODONE 5 MG Tab PO SCH (09:50)
[2018-03-18] MEDS: Calcium Carbonate/Vitamin D3 600 MG-200 Units Tab PO SCH (09:50)
[2018-03-18] MEDS: levETIRAcetam 500 MG Tab PO SCH (09:51)
[2018-03-18] MEDS: Acetaminophen 325 MG Tab PO SCH (09:51)
[2018-03-18] MEDS: Magnesium Oxide 400 MG Tab PO SCH (09:51)
[2018-03-18] MEDS: Enoxaparin 40 MG/0.4 ML Syringe SUBCUT SCH (09:52)
[2018-03-18] MEDS: Polyethylene Glycol 3350 Powder 17 GM Packet PO SCH (09:52)
[2018-03-18] MEDS: Metoprolol Tartrate 25 MG Tab PO SCH (09:52)
[2018-03-18] MEDS: Sodium Chloride/Potassium Chloride Tab PO SCH (09:52)
[2018-03-18] MEDS: amLODIPine 2.5 MG Tab PO SCH (09:52)
[2018-03-18 09:59] VITALS: BP 119/74
== END 2018-03-18 12:28 | DRG 101 ==
LOC: JD.ED 02:57 → JD.ICU 06:50 → JD.MS 03-16 09:43
PROVIDERS: ADMIT Internal Medicine; ATTEND Internal Medicine
PROC: 0HQ1XZZ Repair Face Skin, External Approach (ICD-10-PCS; principal; 2018-03-13)
PROC: 0HB1XZZ Excision of Face Skin, External Approach (ICD-10-PCS; 2018-03-13)
PROC: 3E0234Z Introduction of Serum, Toxoid and Vaccine into Muscle, Percutaneous Approach (ICD-10-PCS; 2018-03-13)
DX: G40.109 Localization-related (focal) (partial) symptomatic epilepsy and epileptic syndromes with simple partial seizures, not intractable, without status epilepticus (principal); G81.94 Hemiplegia, unspecified affecting left nondominant side; T14.90XS Injury, unspecified, sequela; S06.9X0S Unspecified intracranial injury without loss of consciousness, sequela; W18.30XA Fall on same level, unspecified, initial encounter; S01.81XA Laceration without foreign body of other part of head, initial encounter; S01.21XA Laceration without foreign body of nose, initial encounter; S01.511A Laceration without foreign body of lip, initial encounter; M54.5 Low back pain; R73.03 Prediabetes; E83.42 Hypomagnesemia; Z86.14 Personal history of Methicillin resistant Staphylococcus aureus infection; E78.5 Hyperlipidemia, unspecified; F32.9 Major depressive disorder, single episode, unspecified; K59.00 Constipation, unspecified; L91.8 Other hypertrophic disorders of the skin; I10 Essential (primary) hypertension; R32 Unspecified urinary incontinence; G89.29 Other chronic pain; Z86.73 Personal history of transient ischemic attack (TIA), and cerebral infarction without residual deficits; Z87.891 Personal history of nicotine dependence; Z66 Do not resuscitate; Z79.899 Other long term (current) drug therapy; Z98.1 Arthrodesis status; Z86.11 Personal history of tuberculosis; Z23 Encounter for immunization
CPT/HCPCS: 12015; 36415; 70450; 70486; 72125; 80053; 80177; 85007; 85027; 90471; 90715; 96374; 99285; G0480; J2060; 80048; 80306; 81001; 83036; 83735; 85025; 95816; 97110-GO; 97110-GP; 97116-GP; 97162-GP; 97166-GO; 97530-GO; A9270-GY; J1650; J2405; J3475; J7040

== ENCOUNTER 2020-04-10 01:05 | Emergency (ER) | payer MEDICAID ==
[2020-04-10 01:11] VITALS: BP 150/105; PULSE 97
[2020-04-10] MEDS ORDERED: Acetaminophen 325 MG Tab PO ONE (01:30)
[2020-04-10] MEDS ORDERED: Sodium Chloride 0.9% 1,000 ML IV SCH (01:30)
[2020-04-10] MEDS ORDERED: Ondansetron 4 MG/2 ML SDV IVPUSH ONE (01:35)
[2020-04-10] MEDS ORDERED: HYDROmorphone 0.5 MG/0.5 ML Syringe IVPUSH ONE (01:35)
--- NOTE | 2020-04-10 01:38 | EDM.PDOC ---
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 throat. All of the symptoms seem to have started within the last 12 hours. Evaluation revealed that you were short of oxygen and required oxygen supplementation at 3 L/min by nasal cannula to maintain oxygen levels greater than 92%. You will need to be continued on oxygen supplementation at 3 to 5 L/min to maintain O2 sats of. Your fever was treated with Tylenol 975 mg twice while you were in the emergency department. Last dose was given at 0530 hrs. initial dose of dexamethasone steroid was given intravenously at 6 mg. You will need to take dexamethasone tablets 4 mg strength--2 tablets twice daily with breakfast and supper for the next 4 days to reduce inflammation caused by COVID-19 virus. Meloxicam anti- inflammatory medication needs to be discontinued until after you have finished the dexamethasone tablets. It may then be resumed. Continue Tylenol use as needed for fever relief. You would need to return to the hospital if your oxygen levels cannot be maintained at greater than 88% with oxygen supplementation. Oxygen needs can be titrated up to 5 L/min by nasal cannula if required. Sepsis Event Note (ED) - Evaluation Sepsis Screening Result: No Definite Risk
[2020-04-10] MEDS ORDERED: Dexamethasone 4 MG/ML SDV IVPUSH ONE (04:13)
[2020-04-10] MEDS ORDERED: LORazepam 2 MG/ML SDV IV ONE (04:22)
--- NOTE | 2020-04-10 06:53 | CR ---
Chest: Portable view of the chest was obtained. Comparison: Prior chest x-ray of 01/27/19. Heart size and mediastinum are normal. Slight parenchymal density is noted within the left lung base. Lungs otherwise are clear. Bony structures are grossly intact. Impression: 1. Minimal density within left lung base. Differential includes small area of pneumonia as well as atelectasis. Diagnostic code #3 This report was dictated in MDT
== END 2020-04-10 10:40 ==
LOC: JD.ED 01:05
DX: U07.1 COVID-19 (principal); G40.909 Epilepsy, unspecified, not intractable, without status epilepticus; I10 Essential (primary) hypertension; E78.00 Pure hypercholesterolemia, unspecified; Z90.5 Acquired absence of kidney; Z79.899 Other long term (current) drug therapy; Z87.891 Personal history of nicotine dependence
CPT/HCPCS: 36415; 71045; 80053; 81001; 82553; 82728; 83605; 83615; 83735; 83880; 84484; 85007; 85027; 85379; 85610; 85652; 85730; 86140; 87040; 87635; 93005; 96361; 96374; 96375; 99285; A9270; J1100; J1170; J2060; J2405; J7030; 93010; 99284; U0002

== ENCOUNTER 2020-04-17 01:22 | Emergency (ER) | payer MEDICAID ==
[2020-04-17 01:45] VITALS: BP 146/86; PULSE 99
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
[2020-04-17] MEDS ORDERED: Dextrose 5%-0.9% NaCl 1,000 ML IV SCH (02:15)
[2020-04-17] MEDS ORDERED: Acetaminophen 325 MG Tab PO ONE (02:22)
[2020-04-17] MEDS ORDERED: LORazepam 2 MG/ML SDV IV ONE (02:28)
[2020-04-17] MEDS ORDERED: Dexamethasone 10 MG/ML SDV IVPUSH ONE (05:57)
--- NOTE | 2020-05-17 08:32 | CR ---
PROCEDURE INFORMATION: Exam: XR Chest, 1 View Exam date and time: 04/17/2020 3:20 AM Age: 49 years old Clinical indication: Cough and shortness of breath TECHNIQUE: Imaging protocol: XR of the chest Views: 1 view. COMPARISON: CR Chest 1V Frontal 04/10/2020 1:27 AM FINDINGS: Lungs: There are multifocal patchy bilateral mid lung and lower lobe airspace opacities, left greater than right. Diminished lung volumes with hypoventilatory changes present with secondary crowding of bilateral perihilar and bibasilar bronchovascular markings. Pleural space: Unremarkable. No pleural effusion. No pneumothorax. Heart/Mediastinum: Mild cardiomegaly. Diaphragm: Mild elevation of right hemidiaphragm with right infrahilar/perihilar vascular crowding and compressive atelectasis. Bones/joints: Unremarkable. IMPRESSION: 1. Bilateral pneumonitis as above. 2. Remainder of findings described as above. Thank you for allowing us to participate in the care of your patient. Dictated and Authenticated by: Levon Wells MD 05/16/2020 10:39 PM Central Time ([place] & [place]) [email or web address]
== END 2020-04-17 08:45 ==
LOC: SUPCPDRO 01:22 → JD.ED 01:22
DX: U07.1 COVID-19 (principal); R09.02 Hypoxemia; R63.0 Anorexia; I10 Essential (primary) hypertension; E78.00 Pure hypercholesterolemia, unspecified; I69.954 Hemiplegia and hemiparesis following unspecified cerebrovascular disease affecting left non-dominant side; R79.89 Other specified abnormal findings of blood chemistry; R79.82 Elevated C-reactive protein (CRP); R79.1 Abnormal coagulation profile; Z79.899 Other long term (current) drug therapy
CPT/HCPCS: 36415; 71045; 80053; 82728; 83615; 83735; 83880; 84484; 85007; 85027; 85379; 85610; 85730; 86140; 93005; 96361; 96374; 96375; 99285; A9270; J1100; J2060; J7042; 93010; 99284

== ENCOUNTER 2020-04-19 06:52 | Emergency (ER) | payer MEDICAID ==
[2020-04-19] MEDS ORDERED: Metoclopramide 10 MG/2 ML SDV IVPUSH ONE (07:14)
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
[2020-04-19] MEDS ORDERED: Dextrose 5%-0.9% NaCl 1,000 ML IV SCH (07:15)
[2020-04-19] MEDS ORDERED: LORazepam 2 MG/ML SDV IV ONE (07:34)
[2020-04-19] MEDS ORDERED: levETIRAcetam 500 MG Tab PO ONE (07:34)
[2020-04-19] MEDS ORDERED: Baclofen 10 MG Tab PO ONE (07:35)
[2020-04-19] MEDS ORDERED: Valproic Acid 250 MG/5 ML Syrup ML (473 ML Bottle) PO ONE (07:37)
[2020-04-19] MEDS ORDERED: Valproic Acid 250 MG/5 ML Syrup ML (473 ML Bottle) PO SCH (09:00)
[2020-04-19] MEDS ORDERED: amLODIPine 5 MG Tab PO ONE (09:11)
[2020-04-19] MEDS ORDERED: oxyCODONE 5 MG Tab PO ONE (09:11)
[2020-04-19] MEDS ORDERED: Metoprolol Tartrate 25 MG Tab PO ONE (09:11)
[2020-04-19] MEDS ORDERED: Dexamethasone 4 MG Tab PO ONE (09:11)
[2020-04-19] MEDS ORDERED: Acetaminophen 325 MG Tab PO ONE (09:11)
[2020-04-19 09:59] VITALS: BP 126/93; PULSE 75
[2020-04-19] MEDS ORDERED: Divalproex Sodium Delayed-Release 125 MG Cap.Sprink PO SCH (10:00)
== END 2020-04-19 12:15 ==
LOC: JD.ED 06:52
DX: U07.1 COVID-19 (principal); I69.354 Hemiplegia and hemiparesis following cerebral infarction affecting left non-dominant side; R09.02 Hypoxemia; I10 Essential (primary) hypertension; E78.00 Pure hypercholesterolemia, unspecified; Z79.899 Other long term (current) drug therapy
CPT/HCPCS: 36415; 71045; 80053; 82728; 83615; 83735; 83880; 84484; 85379; 85610; 85730; 86140; 93005; 99285; A9270; J8540; 93010

== ENCOUNTER 2021-07-22 08:06 | Emergency (ER) | payer MEDICAID ==
[2021-07-22] MEDS ORDERED: Sodium Chloride 0.9% 10 ML Syringe FLUSH PRN (08:12)
[2021-07-22] MEDS ORDERED: Ondansetron 4 MG/2 ML SDV IVPUSH ONE (08:12)
[2021-07-22] MEDS ORDERED: Pantoprazole 40 MG Vial IVPUSH ONE (08:13)
[2021-07-22] MEDS ORDERED: Sodium Chloride 0.9% 1,000 ML IV SCH (08:15)
[2021-07-22 08:22] VITALS: BP 161/105; PULSE 84
[2021-07-22] MEDS ORDERED: Diatrizoate Meglumine/Diatrizoate Sodium 37% 120 ML Bottle PO ONE ×2 (08:27→10:06)
[2021-07-22] MEDS ORDERED: Iopamidol 612 MG/ML 100 ML Bottle IVPUSH ONE (08:27)
--- NOTE | 2021-07-22 08:47 | EDM.PDOC ---
ED HPI GENERAL MEDICAL PROBLEM - General Chief Complaint: Gastrointestinal Problem Stated Complaint: [facility] Time Seen by Provider: 07/22/21 08:12 Source of Information: Reports: Patient, EMS, Shelter Records History Limitations: Reports: No Limitations - History of Present Illness INITIAL COMMENTS - FREE TEXT/NARRATIVE: The patient presents by [facility] from [facility] for for upper abdominal pain, nausea, vomiting and black diarrhea. This all started a couple days ago. He says he uses tobasco on everything for flavor. He denies fever, chills, cough, chest pain or shortness of breath. He is in the long-term because he had a stroke causing left sided weakness and he has a history of seizures now. He is not on any blood thinners. Onset: Gradual Duration: Day(s): (2) Location: Reports: Abdomen Quality: Reports: Sharp Severity: Moderate Improves with: Reports: None Worsens with: Reports: None Associated Symptoms: Reports: Nausea/Vomiting. Denies: Chest Pain, Cough, Fever/Chills, Headaches, Shortness of Breath Left Upper Abdomen Pain Score (Numeric/FACES): 4 - Related Data Allergies Allergy/AdvReac Type Severity Reaction Status Date / Time No Known Allergies Allergy Verified 04/19/20 07:04 Home Meds: Home Meds Acetaminophen 650 mg PO BID 12/17/15 [History] Baclofen 10 mg PO 1700 12/17/15 [History] Folic Acid 1 mg PO DAILY 12/17/15 [History] Lactobacillus Acidophilus [Acidophilus Lactobacillus] 1 each PO DAILY 12/17/15 [History] Metoprolol Tartrate 25 mg PO BID 12/17/15 [History] Mirtazapine 15 mg PO BEDTIME 12/17/15 [History] Sodium Chloride 2 gm PO BID 12/17/15 [History] levETIRAcetam [Keppra] 1,500 mg PO BID 12/17/15 [History] oxyCODONE 5 mg PO DAILY 12/17/15 [History] Sennosides/Docusate Sodium [Senna Plus Tablet] 2 tab PO BID 11/06/16 [History] Calcium Carbonate/Vitamin D3 [Calcium Carb 500 MG] 1,250 mg PO DAILY 03/13/18 [History] amLODIPine Besylate [Norvasc] 2.5 mg PO DAILY 03/13/18 [History] atorvaSTATin [Lipitor] 10 mg PO BEDTIME 03/13/18 [History] polyethylene glycoL 3350 [MiraLAX] 17 gm PO DAILY 03/13/18 [History] Acetaminophen 650 mg PO Q6H PRN 04/10/20 [History] Divalproex Sodium [Depakote Sprinkle] 1,250 mg PO DAILY 04/10/20 [History] LORazepam [Ativan] 0.5 mg PO Q6H PRN 04/10/20 [History] Lacosamide [Vimpat] 100 mg PO BID 04/10/20 [History] Meloxicam 7.5 mg PO DAILY 04/10/20 [History] Venlafaxine [Effexor XR 24 Hr] 37.5 mg PO BID 04/10/20 [History] Cholecalciferol (Vitamin D3) [Vitamin D3] 1,000 unit PO DAILY 07/22/21 [History] Mag Hydrox/Aluminum Hyd/Simeth [Alum-Mag Hydroxide-Simeth Susp] 10 ml PO TID PRN 07/22/21 [History] Omeprazole Magnesium [Prilosec Otc] 20 mg PO DAILY #14 tablet. 07/22/21 [Rx] Polyvinyl Alcohol [Akwa Tears] 1 drop OP Q2H PRN 07/22/21 [History] Simethicone 160 mg PO BID PRN 07/22/21 [History] hydrOXYzine pamoate [Hydroxyzine Pamoate] 25 mg PO DAILY 07/22/21 [History] Past Medical History HEENT History: Reports: Impaired Vision Other HEENT History: Wears glasses Cardiovascular History: Reports: High Cholesterol, Hypertension Respiratory History: Reports: Other (See Below) (Patient has a tracheostomy wound after trach was placed 5 years ago.) Gastrointestinal History: Reports: Chronic Diarrhea Genitourinary History: Reports: Urinary Incontinence Musculoskeletal History: Reports: Back Pain, Chronic Other Musculoskeletal History: Hemiplegia--Lt side x 5 years. Neurological History: Reports: Brain Injury, CVA, Seizure Other Neuro History: spinal fusion Psychiatric History: Reports: Addiction, Anxiety, Depression Other Psychiatric History: alcohol dependence Endocrine/Metabolic History: Reports: Other (See Below) Other Endocrine/Metabolic History: hx of MRSA Hematologic History: Reports: Anemia, Other (See Below) Other Hematologic History: Hyponatremia Dermatologic History: Reports: Eczema - Infectious Disease History Infectious Disease History: Reports: MRSA Other Infectious Disease History: MRSA to axilla, groin, nasal in 12/18/2014 based on documents from [place] - Past Surgical History Respiratory Surgical History: Reports: Tracheostomy GI Surgical History: Reports: Other (See Below) Male Surgical History: Reports: Other (See Below) Other Male Surgeries/Procedures: states he only has 1 kidney Neurological Surgical History: Reports: C-Spine, Laminectomy, Lumbar Spine, Other (See Below) Other Neurological Surgeries/Procedures: spondylolysis Social & Family History - Family History Family Medical History: No Pertinent Family History Psychiatric: Reports: Other (See Below) Other Psychiatric Family History: alcohol abuse - Tobacco Use Tobacco Use Status *Q: Unknown Ever Used Tobacco - Caffeine Use Caffeine Use: Reports: None - Living Situation & Occupation Living situation: Reports: Single, Extended Care Facility (Currently a resident of [facility] in [place], [place].) Occupation: Disabled ED ROS GENERAL - Review of Systems Review Of Systems: See Below Constitutional: Reports: No Symptoms HEENT: Reports: No Symptoms Respiratory: Reports: No Symptoms Cardiovascular: Reports: No Symptoms Endocrine: Reports: No Symptoms GI/Abdominal: Reports: Abdominal Pain, Black Stool, Diarrhea, Nausea, Vomiting : Reports: No Symptoms Musculoskeletal: Reports: No Symptoms Skin: Reports: No Symptoms Neurological: Reports: No Symptoms ED EXAM, GI/ABD - Physical Exam Exam: See Below Exam Limited By: No Limitations General Appearance: Alert, No Apparent Distress Ears: Normal External Exam Nose: Normal Inspection Head: Atraumatic, Normocephalic Neck: Normal Inspection Respiratory/Chest: No Respiratory Distress, Lungs Clear, Normal Breath Sounds Cardiovascular: Regular Rate, Rhythm, No Edema, No Murmur, No Rub GI/Abdominal Exam: Soft, No Organomegaly, Tender (Mild pain upon palpation to the upper abdomen) Rectal (Males) Exam: Black Stool, Heme + Stool Course - Vital Signs Last Recorded V/S: Last Vital Signs Temp 98.1 F 07/22/21 08:14 Pulse 84 07/22/21 08:14 Resp 13 07/22/21 08:14 BP 161/105 H 07/22/21 08:14 Pulse Ox 88 L 07/22/21 08:14 - Orders/Labs/Meds Orders: Active Orders 24 hr Category Date Time Status Cardiac Monitoring [RC] . DIRECTED Care 07/22/21 08:12 Active Oxygen Therapy [RC] PRN Care 07/22/21 08:12 Active Peripheral IV Care [RC] . DIRECTED Care 07/22/21 08:13 Active Abdomen Pelvis w Cont [CT] Stat Exams 07/22/21 08:13 Taken Chest 1V Frontal [CR] Stat Exams 07/22/21 08:13 Taken Sodium Chloride 0.9% [Normal Saline] 1,000 ml Med 07/22/21 08:15 Active IV ASDIRECTED Sodium Chloride 0.9% [Saline Flush] Med 07/22/21 08:12 Active 10 ml FLUSH ASDIRECTED PRN Sodium Chloride 0.9% [Saline Flush] Med 07/22/21 08:27 Active 10 ml FLUSH ONETIME PRN ED Antiemetic Medication Reflex [OM.PC] Stat Oth 07/22/21 08:12 Ordered Peripheral IV Insertion Adult [OM.PC] Stat Oth 07/22/21 08:12 Ordered Medication Orders Sodium Chloride (Normal Saline) 1,000 mls @ 125 mls/hr IV ASDIRECTED DEVORA Last Admin: 07/22/21 08:58 Dose: 125 mls/hr Documented by: BOUBACAR Sodium Chloride (Sodium Chloride 0.9% 10 Ml Syringe) 10 ml FLUSH ASDIRECTED PRN PRN Reason: Keep Vein Open Sodium Chloride (Sodium Chloride 0.9% 10 Ml Syringe) 10 ml FLUSH ONETIME PRN PRN Reason: Keep Vein Open Last Admin: 07/22/21 09:48 Dose: 10 ml Documented by: Admin: 07/22/21 08:59 Dose: 10 ml Documented by: BOUBACAR Labs: Laboratory Tests 07/22/21 07/22/21 07/22/21 Range/Units 09:09 09:09 09:09 WBC 6.36 (4.23-9.07) K/mm3 RBC 5.57 (4.63-6.08) M/mm3 Hgb 16.3 (13.7-17.5) gm/dl Hct 49.5 (40.1-51.0) % MCV 88.9 (79.0-92.2) fl MCH 29.3 (25.7-32.2) pg MCHC 32.9 (32.2-35.5) g/dl RDW Std Deviation 44.0 H (35.1-43.9) fL Plt Count 174 (163-337) K/mm3 MPV 10.9 (9.4-12.3) fl Neut % (Auto) 68.0 H (34.0-67.9) % Lymph % (Auto) 22.6 (21.8-53.1) % Faulk % (Auto) 8.8 (5.3-12.2) % Eos % (Auto) 0.3 L (0.8-7.0) Baso % (Auto) 0.0 L (0.1-1.2) % Neut # (Auto) 4.32 (1.78-5.38) K/mm3 Lymph # (Auto) 1.44 (1.32-3.57) K/mm3 Faulk # (Auto) 0.56 (0.30-0.82) K/mm3 Eos # (Auto) 0.02 L (0.04-0.54) K/mm3 Baso # (Auto) 0.00 L (0.01-0.08) K/mm3 PT 10.6 (9.7-12.0) SECONDS INR 0.95 APTT 27.3 (21.7-31.4) SECONDS Sodium 142 (136-145) mEq/L Potassium 4.5 (3.5-5.1) mEq/L Chloride 104 (98-107) mEq/L Carbon Dioxide 31 (21-32) mEq/L Anion Gap 11.5 (5-15) BUN 15 (7-18) mg/dL Creatinine 0.9 (0.7-1.3) mg/dL Est Cr Clr Drug Dosing 87.31 mL/min Estimated GFR (MDRD) > 60 (>60) mL/min BUN/Creatinine Ratio 16.7 (14-18) Glucose 120 H (70-99) mg/dL Calcium 9.2 (8.5-10.1) mg/dL Total Bilirubin 0.4 (0.2-1.0) mg/dL AST 24 (15-37) U/L ALT 27 (16-63) U/L Alkaline Phosphatase 57 (46-116) U/L C-Reactive Protein 1.3 H* (<1.0) mg/dL Total Protein 7.2 (6.4-8.2) g/dl Albumin 3.4 (3.4-5.0) g/dl Globulin 3.8 gm/dL Albumin/Globulin Ratio 0.9 L (1-2) Lipase 98 (73-393) U/L Urine Color (Yellow) Urine Appearance (Clear) Urine pH (5.0-8.0) Ur Specific [place] (1.005-1.030) Urine Protein (Negative) Urine Glucose (UA) (Negative) Urine Ketones (Negative) Urine Occult Blood (Negative) Urine Nitrite (Negative) Urine Bilirubin (Negative) Urine Urobilinogen (0.2-1.0) Ur Leukocyte Esterase (Negative) Urine RBC (0-5) /hpf Urine WBC (0-5) /hpf Ur Squamous Epith Cells (0-5) /hpf Urine Bacteria (FEW) /hpf Urine Mucus (FEW) /hpf Influenza Type A RNA (NEGATIVE) Influenza Type B RNA (NEGATIVE) SARS-CoV-2 RNA (DEANGELO) (NEGATIVE) 07/22/21 07/22/21 Range/Units 09:09 10:10 WBC (4.23-9.07) K/mm3 RBC (4.63-6.08) M/mm3 Hgb (13.7-17.5) gm/dl Hct (40.1-51.0) % MCV (79.0-92.2) fl MCH (25.7-32.2) pg MCHC (32.2-35.5) g/dl RDW Std Deviation (35.1-43.9) fL Plt Count (163-337) K/mm3 MPV (9.4-12.3) fl Neut % (Auto) (34.0-67.9) % Lymph % (Auto) (21.8-53.1) % Faulk % (Auto) (5.3-12.2) % Eos % (Auto) (0.8-7.0) Baso % (Auto) (0.1-1.2) % Neut # (Auto) (1.78-5.38) K/mm3 Lymph # (Auto) (1.32-3.57) K/mm3 Faulk # (Auto) (0.30-0.82) K/mm3 Eos # (Auto) (0.04-0.54) K/mm3 Baso # (Auto) (0.01-0.08) K/mm3 PT (9.7-12.0) SECONDS INR APTT (21.7-31.4) SECONDS Sodium (136-145) mEq/L Potassium (3.5-5.1) mEq/L Chloride (98-107) mEq/L Carbon Dioxide (21-32) mEq/L Anion Gap (5-15) BUN (7-18) mg/dL Creatinine (0.7-1.3) mg/dL Est Cr Clr Drug Dosing mL/min Estimated GFR (MDRD) (>60) mL/min BUN/Creatinine Ratio (14-18) Glucose (70-99) mg/dL Calcium (8.5-10.1) mg/dL Total Bilirubin (0.2-1.0) mg/dL AST (15-37) U/L ALT (16-63) U/L Alkaline Phosphatase (46-116) U/L C-Reactive Protein (<1.0) mg/dL Total Protein (6.4-8.2) g/dl Albumin (3.4-5.0) g/dl Globulin gm/dL Albumin/Globulin Ratio (1-2) Lipase (73-393) U/L Urine Color Yellow (Yellow) Urine Appearance Clear (Clear) Urine pH 7.0 (5.0-8.0) Ur Specific [place] 1.025 (1.005-1.030) Urine Protein 3+ H (Negative) Urine Glucose (UA) Negative (Negative) Urine Ketones 1+ H (Negative) Urine Occult Blood Negative (Negative) Urine Nitrite Negative (Negative) Urine Bilirubin Negative (Negative) Urine Urobilinogen 0.2 (0.2-1.0) Ur Leukocyte Esterase Negative (Negative) Urine RBC 0-5 (0-5) /hpf Urine WBC 0-5 (0-5) /hpf Ur Squamous Epith Cells 0-5 (0-5) /hpf Urine Bacteria Few (FEW) /hpf Urine Mucus Few (FEW) /hpf Influenza Type A RNA Negative (NEGATIVE) Influenza Type B RNA Negative (NEGATIVE) SARS-CoV-2 RNA (DEANGELO) Negative (NEGATIVE) Meds: Medications Generic Name Dose Route Start Last Admin Trade Name Freq PRN Reason Stop Dose Admin Sodium Chloride 1,000 mls @ 125 mls/hr 07/22/21 08:15 07/22/21 08:58 Normal Saline IV 125 mls/hr ASDIRECTED DEVORA Administration Sodium Chloride 10 ml 07/22/21 08:12 Sodium Chloride 0.9% 10 Ml Syringe FLUSH ASDIRECTED PRN Keep Vein Open Sodium Chloride 10 ml 07/22/21 08:27 07/22/21 09:48 Sodium Chloride 0.9% 10 Ml Syringe FLUSH 10 ml ONETIME PRN Administration Keep Vein Open Discontinued Medications Generic Name Dose Route Start Last Admin Trade Name Óscar PRN Reason Stop Dose Admin Diatrizoate Meglum/Diatrizoate Sod 40 ml 07/22/21 08:27 07/22/21 09:06 Diatrizoate Meglumine/Diatrizoate Sodium 37% 120 Ml Bottle PO 07/22/21 08:28 Not Given ONETIME ONE Diatrizoate Meglum/Diatrizoate Sod 40 ml 07/22/21 10:06 07/22/21 10:07 Diatrizoate Meglumine/Diatrizoate Sodium 37% 120 Ml Bottle PO 07/22/21 10:07 40 ml ONETIME ONE Administration Iopamidol 100 ml 07/22/21 08:27 07/22/21 09:48 Iopamidol 612 Mg/Ml 100 Ml Bottle IVPUSH 07/22/21 08:28 100 ml ONETIME ONE Administration Ondansetron HCl 4 mg 07/22/21 08:12 07/22/21 08:58 Ondansetron 4 Mg/2 Ml Sdv IVPUSH 07/22/21 08:13 4 mg ONETIME ONE Administration Pantoprazole Sodium 80 mg 07/22/21 08:13 07/22/21 08:59 Pantoprazole 40 Mg Vial IVPUSH 07/22/21 08:14 80 mg BOLUS ONE Administration - Re-Assessments/Exams Free Text/Narrative Re-Assessment/Exam: 07/22/21 08:49 I ordered an IV NS at 125mL/hr, labs, protonix 80mg IV and a CT of his abdomen and pelvis. 07/22/21 09:48 His CBC and CMP look good. His PT and PTT look good. His CRP was slightly elevated at 1.3. His lipase is normal. I am waiting for the CT results. 07/22/21 11:21 His UA shows no UTI. His CXR shows nothing acute. His CT shows no bowel obstruction or bowel inflammation. Diverticulosis of the proximal sigmoid colon without definite acute diverticulitis. Hepatic steatosis. He had bowel movement and it was not black. I will need to get him on some prilosec and have him avoid any spicy food for a week. Departure - Departure Time of Disposition: 11:30 Disposition: DC[facility] to [facility] 65 Condition: Good Clinical Impression: Gastritis Qualifiers: Gastritis type: unspecified gastritis Chronicity: acute Gastritis bleeding: with bleeding Qualified Code(s): K29.01 - Acute gastritis with bleeding GI bleed Qualifiers: GI bleed type/associated pathology: gastritis Gastritis type: acute gastritis Qualified Code(s): K29.01 - Acute gastritis with bleeding - Discharge Information *PRESCRIPTION DRUG MONITORING PROGRAM REVIEWED*: Not Applicable *COPY OF PRESCRIPTION DRUG MONITORING REPORT IN PATIENT MILAN: Not Applicable Prescriptions: Omeprazole Magnesium [Prilosec Otc] 20 mg PO DAILY #14 tablet.dr Referrals: PCP,None [Ordering Only Provider] - Forms: ED Department Discharge Additional Instructions: Drink plenty of fluids. Avoid any spicy food for a couple of weeks. Take prilosec 20mg daily for 14 days. Please return if you are worse. Sepsis Event Note (ED) - Evaluation Sepsis Screening Result: No Definite Risk - Focused Exam Vital Signs: Vital Signs Temp Pulse Resp BP Pulse Ox 07/22/21 08:14 98.1 F 84 13 161/105 H 88 L - My Orders Last 24 Hours: My Active Orders 07/22/21 08:12 Cardiac Monitoring [RC] . DIRECTED Oxygen Therapy [RC] PRN Sodium Chloride 0.9% [Saline Flush] 10 ml FLUSH ASDIRECTED PRN ED Antiemetic Medication Reflex [OM.PC] Stat Peripheral IV Insertion Adult [OM.PC] Stat 07/22/21 08:13 Peripheral IV Care [RC] . DIRECTED Abdomen Pelvis w Cont [CT] Stat Chest 1V Frontal [CR] Stat 07/22/21 08:15 Sodium Chloride 0.9% [Normal Saline] 1,000 ml IV ASDIRECTED 07/22/21 08:27 Sodium Chloride 0.9% [Saline Flush] 10 ml FLUSH ONETIME PRN - Assessment/Plan Last 24 Hours: My Active Orders 07/22/21 08:12 Cardiac Monitoring [RC] . DIRECTED Oxygen Therapy [RC] PRN Sodium Chloride 0.9% [Saline Flush] 10 ml FLUSH ASDIRECTED PRN ED Antiemetic Medication Reflex [OM.PC] Stat Peripheral IV Insertion Adult [OM.PC] Stat 07/22/21 08:13 Peripheral IV Care [RC] . DIRECTED Abdomen Pelvis w Cont [CT] Stat Chest 1V Frontal [CR] Stat 07/22/21 08:15 Sodium Chloride 0.9% [Normal Saline] 1,000 ml IV ASDIRECTED 07/22/21 08:27 Sodium Chloride 0.9% [Saline Flush] 10 ml FLUSH ONETIME PRN
[2021-07-22] MEDS: Sodium Chloride 0.9% 10 ML Syringe FLUSH PRN ×2 (08:59→09:48)
[2021-07-22 09:50] LABS: CORONAVIRUS COVID-19 NAA NEGATIVE (NEGATIVE)
--- NOTE | 2021-07-23 09:17 | CT ---
EXAM: CT ABDOMEN AND PELVIS WITH CONTRAST LOCATION: [facility] ([facility]3] NextGxDX DATE/TIME: 07/22/2021, 9:26 AM INDICATION: Upper abdomen pain, blood in stool. COMPARISON: None. TECHNIQUE: CT scan of the abdomen and pelvis was performed following injection of IV contrast. Multiplanar reformats were obtained. Dose reduction techniques were used. CONTRAST: None. FINDINGS: LOWER CHEST: Normal. HEPATOBILIARY: Hepatic steatosis. PANCREAS: Normal. SPLEEN: Normal. ADRENAL GLANDS: Normal. KIDNEYS/BLADDER: Left nephrectomy. BOWEL: There is no bowel obstruction or abnormal bowel wall thickening. Diverticulosis involves the proximal sigmoid colon without acute diverticulitis. The appendix is normal. LYMPH NODES: Normal. VASCULATURE: The abdominal aorta is normal in caliber with scattered atherosclerotic calcifications. PELVIC ORGANS: Normal. MUSCULOSKELETAL: Surgical changes of a lumbosacral fusion. IMPRESSION: 1. No bowel obstruction or bowel inflammation. 2. Diverticulosis of the proximal sigmoid colon without definite acute diverticulitis. 3. Hepatic steatosis. SIGNED BY: Alfie Guy MD 07/22/2021 11:31 AM SOURAV
--- NOTE | 2021-07-23 09:18 | CR ---
EXAM: XR CHEST 1 VIEW LOCATION: [facility] (formerly [facility]) [address] [place] DATE/TIME: 07/22/2021 10:01 AM INDICATION: Chest pain COMPARISON: 04/19/2020 IMPRESSION: Negative chest. SIGNED BY: Alfie Guy MD 07/22/2021 11:16 AM SOURAV
== END 2021-07-22 13:40 ==
LOC: JD.ED 08:06
DX: K29.01 Acute gastritis with bleeding (principal); E78.00 Pure hypercholesterolemia, unspecified; I10 Essential (primary) hypertension; Z79.899 Other long term (current) drug therapy; Z86.73 Personal history of transient ischemic attack (TIA), and cerebral infarction without residual deficits; Z20.822 Contact with and (suspected) exposure to COVID-19
CPT/HCPCS: 0240U; 36415; 71045; 74177; 80053; 81001; 83690; 85025; 85610; 85730; 86140; 96374; 96375; 99284; C9113; J2405; J7030; Q9963; Q9967

== ENCOUNTER 2021-08-07 19:40 | Inpatient (IN) | payer MEDICAID ==
[2021-08-07] MEDS ORDERED: Sodium Chloride 0.9% 10 ML Syringe FLUSH PRN (19:56)
[2021-08-07] MEDS ORDERED: Sodium Chloride 0.9% 1,000 ML IV STA (20:03)
[2021-08-07] MEDS ORDERED: Ondansetron 4 MG/2 ML SDV IVPUSH ONE (20:10)
[2021-08-07] MEDS ORDERED: HYDROmorphone 0.5 MG/0.5 ML Syringe IVPUSH ONE ×2 (20:10→22:02)
[2021-08-07 21:42] LABS: CORONAVIRUS COVID-19 NAA NEGATIVE (NEGATIVE)
[2021-08-07] MEDS ORDERED: Levofloxacin/Dextrose 5%-Water 750 MG in Premix Bag 1 BAG IV ONE (21:55)
[2021-08-07] MEDS ORDERED: metroNIDAZOLE/Normal Saline 500 MG in Premix Bag 1 BAG IV ONE (21:56)
[2021-08-08] MEDS ORDERED: Ondansetron 4 MG/2 ML SDV IVPUSH PRN (00:03)
[2021-08-08] MEDS ORDERED: Acetaminophen 325 MG Tab PO PRN (00:04)
[2021-08-08] MEDS: metroNIDAZOLE/Normal Saline 500 MG in Premix Bag 1 BAG IV SCH ×3 (06:50→23:20)
[2021-08-08] MEDS ORDERED: HYDROmorphone 1 MG/ML Syringe IVPUSH ONE (08:36)
[2021-08-08] MEDS ORDERED: Simethicone 80 MG Tab.Chew PO PRN (08:45)
[2021-08-08] MEDS ORDERED: LORazepam 0.5 MG Tab PO PRN (09:07)
[2021-08-08] MEDS: Folic Acid 1 MG Tab PO SCH (09:08)
[2021-08-08] MEDS: Divalproex Sodium Delayed-Release 250 MG Tab.CR PO SCH (09:08)
[2021-08-08] MEDS: Divalproex Sodium Delayed-Release 500 MG Tab.CR PO SCH ×2 (09:08→21:31)
[2021-08-08] MEDS: Venlafaxine 37.5 MG Cap.ER PO SCH ×2 (09:45→21:29)
[2021-08-08] MEDS: Meloxicam 7.5 MG Tab PO SCH (09:46)
[2021-08-08] MEDS: amLODIPine 2.5 MG Tab PO SCH (09:46)
[2021-08-08] MEDS: Metoprolol Tartrate 25 MG Tab PO SCH ×2 (09:46→21:29)
[2021-08-08] MEDS: levETIRAcetam 500 MG Tab PO SCH ×2 (09:57→16:37)
[2021-08-08] MEDS ORDERED: Lactated Ringers 1,000 ML IV ONE (10:55)
[2021-08-08] MEDS: Lactated Ringers 1,000 ML IV SCH ×2 (12:16→23:17)
[2021-08-08] MEDS: hydrOXYzine HCl 25 MG Tab PO SCH (13:17)
[2021-08-08] MEDS: Mirtazapine 15 MG Tab PO SCH (16:39)
[2021-08-08] MEDS: Baclofen 10 MG Tab PO SCH (16:39)
[2021-08-08] MEDS: LACOSAMIDE 100 MG PO SCH (21:27)
[2021-08-08] MEDS: Levofloxacin/Dextrose 5%-Water 750 MG in Premix Bag 1 BAG IV SCH (21:30)
[2021-08-08] MEDS: atorvaSTATin 20 MG Tab PO SCH (21:31)
[2021-08-08] MEDS: HYDROmorphone 0.5 MG/0.5 ML Syringe IVPUSH PRN (23:20)
[2021-08-09] MEDS: HYDROmorphone 0.5 MG/0.5 ML Syringe IVPUSH PRN ×2 (03:39→16:24)
[2021-08-09] MEDS: Pantoprazole 40 MG Tab.CR PO SCH (06:26)
[2021-08-09] MEDS: metroNIDAZOLE/Normal Saline 500 MG in Premix Bag 1 BAG IV SCH ×3 (06:27→23:53)
[2021-08-09] MEDS: levETIRAcetam 500 MG Tab PO SCH ×2 (07:52→16:23)
[2021-08-09] MEDS: Divalproex Sodium Delayed-Release 250 MG Tab.CR PO SCH (09:18)
[2021-08-09] MEDS: Meloxicam 7.5 MG Tab PO SCH (09:18)
[2021-08-09] MEDS: Venlafaxine 37.5 MG Cap.ER PO SCH ×2 (09:18→21:04)
[2021-08-09] MEDS: Folic Acid 1 MG Tab PO SCH (09:18)
[2021-08-09] MEDS: amLODIPine 2.5 MG Tab PO SCH (09:18)
[2021-08-09] MEDS: Metoprolol Tartrate 25 MG Tab PO SCH ×2 (09:20→21:03)
[2021-08-09] MEDS: Lactated Ringers 1,000 ML IV SCH ×2 (09:21→21:05)
[2021-08-09] MEDS: LACOSAMIDE 100 MG PO SCH ×2 (09:21→21:03)
[2021-08-09] MEDS: Divalproex Sodium Delayed-Release 500 MG Tab.CR PO SCH ×2 (09:21→21:03)
[2021-08-09] MEDS ORDERED: Sodium Chloride 0.9% 1,000 ML IV ONE (11:17)
[2021-08-09] MEDS: hydrOXYzine HCl 25 MG Tab PO SCH (13:17)
[2021-08-09] MEDS: Mirtazapine 15 MG Tab PO SCH (16:23)
[2021-08-09] MEDS: Baclofen 10 MG Tab PO SCH (16:23)
[2021-08-09] MEDS: Levofloxacin/Dextrose 5%-Water 750 MG in Premix Bag 1 BAG IV SCH (21:02)
[2021-08-09] MEDS: atorvaSTATin 20 MG Tab PO SCH (21:03)
[2021-08-10] MEDS: HYDROmorphone 0.5 MG/0.5 ML Syringe IVPUSH PRN ×2 (01:16→08:20)
[2021-08-10] MEDS: Pantoprazole 40 MG Tab.CR PO SCH (05:12)
[2021-08-10] MEDS: metroNIDAZOLE/Normal Saline 500 MG in Premix Bag 1 BAG IV SCH (05:12)
[2021-08-10] MEDS: levETIRAcetam 500 MG Tab PO SCH ×2 (05:14→16:12)
[2021-08-10] MEDS: Divalproex Sodium Delayed-Release 250 MG Tab.CR PO SCH (08:18)
[2021-08-10] MEDS: Meloxicam 7.5 MG Tab PO SCH (08:18)
[2021-08-10] MEDS: Divalproex Sodium Delayed-Release 500 MG Tab.CR PO SCH ×2 (08:18→22:38)
[2021-08-10] MEDS: Metoprolol Tartrate 25 MG Tab PO SCH ×2 (08:19→22:41)
[2021-08-10] MEDS: Venlafaxine 37.5 MG Cap.ER PO SCH ×2 (08:19→22:39)
[2021-08-10] MEDS: Folic Acid 1 MG Tab PO SCH (08:19)
[2021-08-10] MEDS: LACOSAMIDE 100 MG PO SCH ×2 (08:19→22:39)
[2021-08-10] MEDS: amLODIPine 2.5 MG Tab PO SCH (08:19)
[2021-08-10] MEDS: hydrOXYzine HCl 25 MG Tab PO SCH (13:14)
[2021-08-10] MEDS: metroNIDAZOLE 500 MG Tab PO SCH ×2 (13:14→22:40)
[2021-08-10] MEDS: Baclofen 10 MG Tab PO SCH (16:12)
[2021-08-10] MEDS: Mirtazapine 15 MG Tab PO SCH (16:12)
[2021-08-10] MEDS ORDERED: Levofloxacin 750 MG Tab PO SCH (21:00)
[2021-08-10] MEDS: atorvaSTATin 20 MG Tab PO SCH (22:40)
[2021-08-11] MEDS: levETIRAcetam 500 MG Tab PO SCH (06:20)
[2021-08-11] MEDS: metroNIDAZOLE 500 MG Tab PO SCH (06:20)
[2021-08-11] MEDS: Pantoprazole 40 MG Tab.CR PO SCH (06:21)
[2021-08-11] MEDS ORDERED: Acetaminophen 325 MG Tab PO PRN (08:28)
[2021-08-11] MEDS: Divalproex Sodium Delayed-Release 500 MG Tab.CR PO SCH (08:48)
[2021-08-11] MEDS: Folic Acid 1 MG Tab PO SCH (08:49)
[2021-08-11] MEDS: Divalproex Sodium Delayed-Release 250 MG Tab.CR PO SCH (08:49)
[2021-08-11] MEDS: Metoprolol Tartrate 25 MG Tab PO SCH (08:50)
[2021-08-11] MEDS: amLODIPine 2.5 MG Tab PO SCH (08:51)
[2021-08-11] MEDS: Meloxicam 7.5 MG Tab PO SCH (08:51)
[2021-08-11] MEDS: Venlafaxine 37.5 MG Cap.ER PO SCH (08:52)
[2021-08-11] MEDS: LACOSAMIDE 100 MG PO SCH (08:53)
[2021-08-11 08:56] VITALS: BP 136/83; PULSE 87
== END 2021-08-11 12:00 | DRG 392 ==
LOC: JD.ED 19:47 → JD.MS 22:07
PROVIDERS: ADMIT Internal Medicine; ATTEND Internal Medicine
DX: K57.20 Diverticulitis of large intestine with perforation and abscess without bleeding (principal); I69.352 Hemiplegia and hemiparesis following cerebral infarction affecting left dominant side; G40.909 Epilepsy, unspecified, not intractable, without status epilepticus; Z79.1 Long term (current) use of non-steroidal anti-inflammatories (NSAID); J18.9 Pneumonia, unspecified organism; Z97.3 Presence of spectacles and contact lenses; K57.80 Diverticulitis of intestine, part unspecified, with perforation and abscess without bleeding; E78.5 Hyperlipidemia, unspecified; Z87.01 Personal history of pneumonia (recurrent); H54.7 Unspecified visual loss; E78.00 Pure hypercholesterolemia, unspecified; Z86.14 Personal history of Methicillin resistant Staphylococcus aureus infection; I10 Essential (primary) hypertension; Z93.0 Tracheostomy status; Z90.89 Acquired absence of other organs; Z98.890 Other specified postprocedural states; R32 Unspecified urinary incontinence; I69.354 Hemiplegia and hemiparesis following cerebral infarction affecting left non-dominant side; F32.A Depression, unspecified; F41.9 Anxiety disorder, unspecified; E87.1 Hypo-osmolality and hyponatremia; D64.9 Anemia, unspecified; Q60.0 Renal agenesis, unilateral; F10.20 Alcohol dependence, uncomplicated; Z79.899 Other long term (current) drug therapy; Z20.822 Contact with and (suspected) exposure to COVID-19
CPT/HCPCS: 0240U; 36415; 71045; 74177; 80048; 80053; 81001; 82947; 83605; 83690; 83735; 85025; 85027; 86140; 87040; 87635; 94760; 94761; 96365; 96375; 96376; 99285; A9270-GY; J1170; J1956; J2405; J3490; J7030; J7120; U0002

== ENCOUNTER → 2021-10-04 | Day surgery (SDC) | payer MEDICAID ==
[~2021-10-04] MED LIST: Lactated Ringers 1,000 ML IV SCH; Lidocaine 1% 4 ML ONE; Lidocaine 1%/Sod Bicarbonate in NS 8.4% 1 ML Syringe IDERM PRN; Propofol 200 MG/20 ML SDV ONE; Sodium Chloride 0.9% 10 ML Syringe FLUSH PRN; Sodium Chloride 0.9% 10 ML Syringe FLUSH SCH
[2021-10-04 10:16] VITALS: BP 131/88; PULSE 68
== END ==
LOC: JD.SDS 07:01
PROVIDERS: ATTEND Surgery
DX: D12.2 Benign neoplasm of ascending colon (principal); R56.9 Unspecified convulsions; K21.9 Gastro-esophageal reflux disease without esophagitis; I10 Essential (primary) hypertension; E78.00 Pure hypercholesterolemia, unspecified; Z86.73 Personal history of transient ischemic attack (TIA), and cerebral infarction without residual deficits; Z98.890 Other specified postprocedural states; Z88.8 Allergy status to other drugs, medicaments and biological substances; Z79.899 Other long term (current) drug therapy
CPT/HCPCS: 45380; J2704; J7120; 00811

== ENCOUNTER 2022-09-23 21:31 | Inpatient (IN) | payer MEDICAID ==
[2022-09-23 22:49] LABS: BASOPHILS ABSOLUTE AUTO 0.01 K/mm3 (0.01-0.08); BASOPHILS PERCENT AUTO 0.2 % (0.1-1.2); EOSINOPHILS ABSOLUTE AUTO 0.11 K/mm3 (0.04-0.54); EOSINOPHILS PERCENT AUTO 1.7 (0.8-7.0); HEMATOCRIT 47.1 % (40.1-51.0); HEMOGLOBIN 15.4 gm/dl (13.7-17.5); IMMATURE GRAN ABSOLUTE AUTO 0.02 K/mm3 (0.00-0.10); IMMATURE GRAN PERCENT AUTO 0.3 % (<=1.0); LYMPHOCYTES ABSOLUTE AUTO 3.16 K/mm3 (1.32-3.57); LYMPHOCYTES PERCENT AUTO 50.1 % (21.8-53.1); MEAN CORPUSCULAR HEMOGLOBIN 29.4 pg (25.7-32.2); MEAN CORPUSCULAR HGB CONC 32.7 g/dl (32.2-35.5); MEAN CORPUSCULAR VOLUME 89.9 fl (79.0-92.2); MEAN PLATELET VOLUME 10.4 fl (9.4-12.3); MONOCYTES ABSOLUTE AUTO 0.65 K/mm3 (0.30-0.82); MONOCYTES PERCENT AUTO 10.3 % (5.3-12.2); NEUTROPHILS ABSOLUTE AUTO 2.36 K/mm3 (1.78-5.38); NEUTROPHILS PERCENT AUTO 37.4 % (34.0-67.9); PLATELET COUNT,PLT 135 K/mm3 (163-337); RED BLOOD CELL COUNT 5.24 M/mm3 (4.63-6.08); WHITE BLOOD CELL COUNT,WBC 6.31 K/mm3 (4.23-9.07)
[2022-09-23 23:10] LABS: A/G RATIO 0.9 (1-2); BILIRUBIN TOTAL 0.3 mg/dL (0.2-1.0); BUN/CREATININE RATIO 15.6 (14-18); CALCIUM 8.2 mg/dL (8.5-10.1); CREATININE 0.9 mg/dL (0.7-1.3); EST CRCL DRUG DOSING (CG) 94.5 mL/min; PROTEIN TOTAL,TP 6.2 g/dl (6.4-8.2)
[2022-09-24 01:58] LABS: APPEARANCE,URINE CLEAR (Clear); BILIRUBIN,URINE NEGATIVE (Negative); COLOR,URINE YELLOW (Yellow); GLUCOSE,URINE TRACE (Negative); KETONES,URINE TRACE (Negative); LEUKOCYTE ESTERASE,URINE NEGATIVE (Negative); NITRITE,URINE NEGATIVE (Negative); OCCULT BLOOD,URINE NEGATIVE (Negative); PH,URINE 6.5 (5.0-8.0); PROTEIN,URINE 2+ (Negative); UROBILINOGEN,URINE 0.2 (0.2-1.0)
[2022-09-24 02:16] LABS: AMORPHOUS SEDIMENT,URINE RARE /hpf (NOT SEEN); BACTERIA,URINE FEW /hpf (FEW); EPITHELIAL CELLS,URINE NOT SEEN /hpf (0-5); MUCUS,URINE RARE /hpf (FEW); RBC,URINE 0-5 /hpf (0-5); WBC,URINE 0-5 /hpf (0-5)
[2022-09-24 05:41] LABS: CORONAVIRUS COVID-19 NAA NEGATIVE (NEGATIVE); INFLUENZA A NAA NEGATIVE (NEGATIVE)
[2022-09-24] MEDS ORDERED: levETIRAcetam 500 MG Tab PO ONE (07:05)
[2022-09-24] MEDS ORDERED: Baclofen 10 MG Tab PO ONE (07:05)
[2022-09-24] MEDS ORDERED: oxyCODONE 5 MG Tab PO ONE (09:43)
[2022-09-24] MEDS ORDERED: Acetaminophen 325 MG Tab PO PRN (16:41)
[2022-09-24] MEDS ORDERED: Sennosides 8.6 MG Tab PO PRN (22:06)
[2022-09-24] MEDS: risperiDONE 0.5 MG Tab PO SCH (22:15)
[2022-09-25] MEDS ORDERED: LORazepam 0.5 MG Tab PO PRN (07:26)
[2022-09-25] MEDS ORDERED: Loperamide 2 MG Cap PO PRN (07:30)
[2022-09-25] MEDS: Venlafaxine 75 MG Cap.ER PO SCH ×3 (08:51→20:19)
[2022-09-25] MEDS: Carboxymethylcellulose Sodium 1% Ophth Gel 15 ML Bottle EYEBOTH SCH ×3 (08:51→20:08)
[2022-09-25] MEDS: Mirtazapine 15 MG Tab PO SCH ×2 (08:51→09:31)
[2022-09-25] MEDS: atorvaSTATin 20 MG Tab PO SCH ×2 (08:52→09:31)
[2022-09-25] MEDS: Divalproex Sodium Delayed-Release 500 MG Tab.CR PO SCH ×3 (08:52→20:08)
[2022-09-25] MEDS: Baclofen 10 MG Tab PO SCH ×2 (08:52→09:31)
[2022-09-25] MEDS: Meloxicam 7.5 MG Tab PO SCH ×2 (08:53→09:31)
[2022-09-25] MEDS: oxyCODONE 5 MG Tab PO SCH ×2 (08:53→09:31)
[2022-09-25] MEDS: Sodium Chloride 1 GM Tab PO SCH ×3 (08:53→20:19)
[2022-09-25] MEDS: Simethicone 80 MG Tab.Chew PO SCH ×3 (08:53→20:01)
[2022-09-25] MEDS: levETIRAcetam 500 MG Tab PO SCH ×3 (08:53→20:01)
[2022-09-25] MEDS: amLODIPine 10 MG Tab PO SCH ×2 (08:54→09:31)
[2022-09-25] MEDS: Folic Acid 1 MG Tab PO SCH ×2 (08:54→09:30)
[2022-09-25] MEDS: Sennosides/Docusate Sodium 50-8.6 MG Tab PO SCH ×3 (08:54→20:03)
[2022-09-25] MEDS: risperiDONE 0.5 MG Tab PO SCH ×3 (08:54→20:01)
[2022-09-25] MEDS: hydrOXYzine HCl 25 MG Tab PO SCH ×3 (08:54→20:01)
[2022-09-25] MEDS: Metoprolol Tartrate 25 MG Tab PO SCH ×3 (08:54→20:03)
[2022-09-25] MEDS: Pantoprazole 40 MG Tab.CR PO SCH ×2 (08:54→09:31)
[2022-09-25] MEDS: Polyethylene Glycol 3350 Powder 17 GM Packet PO SCH ×2 (08:55→09:31)
[2022-09-25] MEDS: Lacosamide 100 MG Tab PO SCH ×3 (08:55→20:18)
[2022-09-25] MEDS ORDERED: Enoxaparin 30 MG/0.3 ML Syringe SUBCUT SCH (11:00)
[2022-09-25] MEDS: oxyCODONE 5 MG Tab PO PRN ×2 (12:15→20:02)
[2022-09-25] MEDS: Benzocaine/Cetylpyridinium/Menthol Lozenge MUCMEM PRN (16:53)
[2022-09-25] MEDS: Divalproex Sodium Delayed-Release 250 MG Tab.CR PO SCH (20:01)
[2022-09-26] MEDS: Polyethylene Glycol 3350 Powder 17 GM Packet PO SCH (08:37)
[2022-09-26] MEDS: levETIRAcetam 500 MG Tab PO SCH ×2 (08:37→23:30)
[2022-09-26] MEDS: Meloxicam 7.5 MG Tab PO SCH (08:37)
[2022-09-26] MEDS: Sennosides/Docusate Sodium 50-8.6 MG Tab PO SCH ×2 (08:37→23:32)
[2022-09-26] MEDS: Pantoprazole 40 MG Tab.CR PO SCH (08:37)
[2022-09-26] MEDS: amLODIPine 10 MG Tab PO SCH (08:37)
[2022-09-26] MEDS: Simethicone 80 MG Tab.Chew PO SCH ×2 (08:38→23:30)
[2022-09-26] MEDS: Divalproex Sodium Delayed-Release 500 MG Tab.CR PO SCH ×2 (08:38→21:00)
[2022-09-26] MEDS: Metoprolol Tartrate 25 MG Tab PO SCH ×2 (08:38→23:31)
[2022-09-26] MEDS: Folic Acid 1 MG Tab PO SCH (08:39)
[2022-09-26] MEDS: Sodium Chloride 1 GM Tab PO SCH ×2 (08:39→23:30)
[2022-09-26] MEDS: hydrOXYzine HCl 25 MG Tab PO SCH ×2 (08:39→23:31)
[2022-09-26] MEDS: oxyCODONE 5 MG Tab PO SCH (08:39)
[2022-09-26] MEDS: Mirtazapine 15 MG Tab PO SCH (08:39)
[2022-09-26] MEDS: Baclofen 10 MG Tab PO SCH (08:39)
[2022-09-26] MEDS: risperiDONE 0.5 MG Tab PO SCH ×2 (08:40→23:31)
[2022-09-26] MEDS: Venlafaxine 75 MG Cap.ER PO SCH ×2 (08:40→23:30)
[2022-09-26] MEDS: atorvaSTATin 20 MG Tab PO SCH (08:40)
[2022-09-26] MEDS: Carboxymethylcellulose Sodium 1% Ophth Gel 15 ML Bottle EYEBOTH SCH ×3 (08:44→23:32)
[2022-09-26] MEDS: Lacosamide 100 MG Tab PO SCH ×2 (08:45→23:33)
[2022-09-26] MEDS: Enoxaparin 40 MG/0.4 ML Syringe SUBCUT SCH (15:49)
[2022-09-26] MEDS: Divalproex Sodium Delayed-Release 250 MG Tab.CR PO SCH (23:31)
[2022-09-27] MEDS: levETIRAcetam 500 MG Tab PO SCH ×2 (08:07→21:15)
[2022-09-27] MEDS: Sennosides/Docusate Sodium 50-8.6 MG Tab PO SCH ×2 (08:07→21:17)
[2022-09-27] MEDS: Venlafaxine 75 MG Cap.ER PO SCH ×2 (08:07→21:17)
[2022-09-27] MEDS: Simethicone 80 MG Tab.Chew PO SCH ×2 (08:07→21:17)
[2022-09-27] MEDS: hydrOXYzine HCl 25 MG Tab PO SCH ×2 (08:08→21:18)
[2022-09-27] MEDS: amLODIPine 10 MG Tab PO SCH (08:09)
[2022-09-27] MEDS: atorvaSTATin 20 MG Tab PO SCH (08:09)
[2022-09-27] MEDS: Sodium Chloride 1 GM Tab PO SCH ×2 (08:10→21:16)
[2022-09-27] MEDS: Divalproex Sodium Delayed-Release 500 MG Tab.CR PO SCH ×2 (08:10→21:17)
[2022-09-27] MEDS: risperiDONE 0.5 MG Tab PO SCH ×2 (08:10→21:18)
[2022-09-27] MEDS: Folic Acid 1 MG Tab PO SCH (08:11)
[2022-09-27] MEDS: oxyCODONE 5 MG Tab PO SCH (08:11)
[2022-09-27] MEDS: Metoprolol Tartrate 25 MG Tab PO SCH ×2 (08:11→21:18)
[2022-09-27] MEDS: Mirtazapine 15 MG Tab PO SCH (08:12)
[2022-09-27] MEDS: Polyethylene Glycol 3350 Powder 17 GM Packet PO SCH (08:12)
[2022-09-27] MEDS: Pantoprazole 40 MG Tab.CR PO SCH (08:12)
[2022-09-27] MEDS: Baclofen 10 MG Tab PO SCH (08:12)
[2022-09-27] MEDS: Meloxicam 7.5 MG Tab PO SCH (08:12)
[2022-09-27] MEDS: Carboxymethylcellulose Sodium 1% Ophth Gel 15 ML Bottle EYEBOTH SCH ×3 (08:13→21:19)
[2022-09-27] MEDS: Lacosamide 100 MG Tab PO SCH ×2 (08:36→21:19)
[2022-09-27] MEDS: Enoxaparin 40 MG/0.4 ML Syringe SUBCUT SCH (12:02)
[2022-09-27] MEDS: Divalproex Sodium Delayed-Release 250 MG Tab.CR PO SCH (21:17)
[2022-09-28] MEDS: oxyCODONE 5 MG Tab PO SCH (09:29)
[2022-09-28] MEDS: Pantoprazole 40 MG Tab.CR PO SCH (09:29)
[2022-09-28] MEDS: Mirtazapine 15 MG Tab PO SCH (09:29)
[2022-09-28] MEDS: Sennosides/Docusate Sodium 50-8.6 MG Tab PO SCH ×2 (09:29→20:14)
[2022-09-28] MEDS: Simethicone 80 MG Tab.Chew PO SCH ×2 (09:30→20:11)
[2022-09-28] MEDS: amLODIPine 10 MG Tab PO SCH (09:30)
[2022-09-28] MEDS: risperiDONE 0.5 MG Tab PO SCH ×2 (09:30→20:13)
[2022-09-28] MEDS: Meloxicam 7.5 MG Tab PO SCH (09:30)
[2022-09-28] MEDS: Venlafaxine 75 MG Cap.ER PO SCH ×2 (09:30→20:11)
[2022-09-28] MEDS: Folic Acid 1 MG Tab PO SCH (09:30)
[2022-09-28] MEDS: levETIRAcetam 500 MG Tab PO SCH ×2 (09:30→20:08)
[2022-09-28] MEDS: Sodium Chloride 1 GM Tab PO SCH ×2 (09:30→20:07)
[2022-09-28] MEDS: Baclofen 10 MG Tab PO SCH (09:31)
[2022-09-28] MEDS: Metoprolol Tartrate 25 MG Tab PO SCH ×2 (09:31→20:12)
[2022-09-28] MEDS: atorvaSTATin 20 MG Tab PO SCH (09:31)
[2022-09-28] MEDS: Polyethylene Glycol 3350 Powder 17 GM Packet PO SCH (09:32)
[2022-09-28] MEDS: Carboxymethylcellulose Sodium 1% Ophth Gel 15 ML Bottle EYEBOTH SCH ×3 (09:33→20:13)
[2022-09-28] MEDS: Lacosamide 100 MG Tab PO SCH ×2 (10:00→20:18)
[2022-09-28] MEDS: hydrOXYzine HCl 25 MG Tab PO SCH ×2 (10:01→20:12)
[2022-09-28] MEDS: Enoxaparin 40 MG/0.4 ML Syringe SUBCUT SCH (10:10)
[2022-09-28] MEDS: Divalproex Sodium Delayed-Release 500 MG Tab.CR PO SCH ×2 (10:57→20:10)
[2022-09-28] MEDS: Divalproex Sodium Delayed-Release 250 MG Tab.CR PO SCH (20:11)
[2022-09-29] MEDS: Sennosides/Docusate Sodium 50-8.6 MG Tab PO SCH ×2 (08:53→20:07)
[2022-09-29] MEDS: Pantoprazole 40 MG Tab.CR PO SCH (08:53)
[2022-09-29] MEDS: Sodium Chloride 1 GM Tab PO SCH ×2 (08:54→20:02)
[2022-09-29] MEDS: hydrOXYzine HCl 25 MG Tab PO SCH ×2 (08:54→20:07)
[2022-09-29] MEDS: Simethicone 80 MG Tab.Chew PO SCH ×2 (08:54→20:06)
[2022-09-29] MEDS: Mirtazapine 15 MG Tab PO SCH (08:54)
[2022-09-29] MEDS: oxyCODONE 5 MG Tab PO SCH (08:54)
[2022-09-29] MEDS: Venlafaxine 75 MG Cap.ER PO SCH ×2 (08:55→20:08)
[2022-09-29] MEDS: levETIRAcetam 500 MG Tab PO SCH ×2 (08:55→20:03)
[2022-09-29] MEDS: Polyethylene Glycol 3350 Powder 17 GM Packet PO SCH (08:55)
[2022-09-29] MEDS: Divalproex Sodium Delayed-Release 500 MG Tab.CR PO SCH ×2 (08:56→20:06)
[2022-09-29] MEDS: amLODIPine 10 MG Tab PO SCH (08:56)
[2022-09-29] MEDS: Folic Acid 1 MG Tab PO SCH (08:56)
[2022-09-29] MEDS: Metoprolol Tartrate 25 MG Tab PO SCH ×2 (08:57→20:08)
[2022-09-29] MEDS: Meloxicam 7.5 MG Tab PO SCH (08:57)
[2022-09-29] MEDS: risperiDONE 0.5 MG Tab PO SCH ×2 (08:57→20:08)
[2022-09-29] MEDS: atorvaSTATin 20 MG Tab PO SCH (08:57)
[2022-09-29] MEDS: Baclofen 10 MG Tab PO SCH (08:57)
[2022-09-29] MEDS: Carboxymethylcellulose Sodium 1% Ophth Gel 15 ML Bottle EYEBOTH SCH ×3 (09:01→20:09)
[2022-09-29] MEDS: Lacosamide 100 MG Tab PO SCH ×2 (09:02→20:09)
[2022-09-29] MEDS: Enoxaparin 40 MG/0.4 ML Syringe SUBCUT SCH (10:08)
[2022-09-29] MEDS: Divalproex Sodium Delayed-Release 250 MG Tab.CR PO SCH (20:07)
[2022-09-30] MEDS: Divalproex Sodium Delayed-Release 500 MG Tab.CR PO SCH ×2 (08:35→20:44)
[2022-09-30] MEDS: Polyethylene Glycol 3350 Powder 17 GM Packet PO SCH (08:35)
[2022-09-30] MEDS: Pantoprazole 40 MG Tab.CR PO SCH (08:36)
[2022-09-30] MEDS: Meloxicam 7.5 MG Tab PO SCH (08:37)
[2022-09-30] MEDS: hydrOXYzine HCl 25 MG Tab PO SCH ×2 (08:38→20:43)
[2022-09-30] MEDS: atorvaSTATin 20 MG Tab PO SCH (08:38)
[2022-09-30] MEDS: levETIRAcetam 500 MG Tab PO SCH ×2 (08:38→20:44)
[2022-09-30] MEDS: Metoprolol Tartrate 25 MG Tab PO SCH ×2 (08:39→20:44)
[2022-09-30] MEDS: Mirtazapine 15 MG Tab PO SCH (08:39)
[2022-09-30] MEDS: Baclofen 10 MG Tab PO SCH (08:40)
[2022-09-30] MEDS: oxyCODONE 5 MG Tab PO SCH (08:40)
[2022-09-30] MEDS: risperiDONE 0.5 MG Tab PO SCH ×2 (08:41→20:43)
[2022-09-30] MEDS: Folic Acid 1 MG Tab PO SCH (08:41)
[2022-09-30] MEDS: amLODIPine 10 MG Tab PO SCH (08:42)
[2022-09-30] MEDS: Venlafaxine 75 MG Cap.ER PO SCH ×2 (08:42→20:43)
[2022-09-30] MEDS: Sennosides/Docusate Sodium 50-8.6 MG Tab PO SCH ×2 (08:43→20:44)
[2022-09-30] MEDS: Sodium Chloride 1 GM Tab PO SCH ×2 (08:43→20:43)
[2022-09-30] MEDS: Lacosamide 100 MG Tab PO SCH ×2 (08:43→20:44)
[2022-09-30] MEDS: Simethicone 80 MG Tab.Chew PO SCH ×2 (08:44→20:43)
[2022-09-30] MEDS: Carboxymethylcellulose Sodium 1% Ophth Gel 15 ML Bottle EYEBOTH SCH ×3 (08:45→20:42)
[2022-09-30] MEDS: Enoxaparin 40 MG/0.4 ML Syringe SUBCUT SCH (11:43)
[2022-09-30] MEDS: Divalproex Sodium Delayed-Release 250 MG Tab.CR PO SCH (20:44)
[2022-10-01] MEDS: Sodium Chloride 1 GM Tab PO SCH ×2 (09:19→20:27)
[2022-10-01] MEDS: Polyethylene Glycol 3350 Powder 17 GM Packet PO SCH (09:19)
[2022-10-01] MEDS: levETIRAcetam 500 MG Tab PO SCH ×2 (09:20→20:27)
[2022-10-01] MEDS: Sennosides/Docusate Sodium 50-8.6 MG Tab PO SCH ×2 (09:20→20:26)
[2022-10-01] MEDS: Venlafaxine 75 MG Cap.ER PO SCH ×2 (09:20→20:27)
[2022-10-01] MEDS: atorvaSTATin 20 MG Tab PO SCH (09:21)
[2022-10-01] MEDS: Baclofen 10 MG Tab PO SCH (09:21)
[2022-10-01] MEDS: Meloxicam 7.5 MG Tab PO SCH (09:21)
[2022-10-01] MEDS: Metoprolol Tartrate 25 MG Tab PO SCH ×2 (09:22→20:27)
[2022-10-01] MEDS: Simethicone 80 MG Tab.Chew PO SCH ×2 (09:22→20:27)
[2022-10-01] MEDS: Divalproex Sodium Delayed-Release 500 MG Tab.CR PO SCH ×2 (09:23→20:27)
[2022-10-01] MEDS: Carboxymethylcellulose Sodium 1% Ophth Gel 15 ML Bottle EYEBOTH SCH ×3 (09:23→20:26)
[2022-10-01] MEDS: oxyCODONE 5 MG Tab PO SCH (09:24)
[2022-10-01] MEDS: Folic Acid 1 MG Tab PO SCH (09:25)
[2022-10-01] MEDS: hydrOXYzine HCl 25 MG Tab PO SCH ×2 (09:25→20:26)
[2022-10-01] MEDS: Pantoprazole 40 MG Tab.CR PO SCH (09:26)
[2022-10-01] MEDS: amLODIPine 10 MG Tab PO SCH (09:26)
[2022-10-01] MEDS: Mirtazapine 15 MG Tab PO SCH (09:26)
[2022-10-01] MEDS: risperiDONE 0.5 MG Tab PO SCH ×2 (09:27→20:26)
[2022-10-01] MEDS: Lacosamide 100 MG Tab PO SCH ×2 (09:33→20:29)
[2022-10-01] MEDS: Enoxaparin 40 MG/0.4 ML Syringe SUBCUT SCH (11:22)
[2022-10-01] MEDS: Divalproex Sodium Delayed-Release 250 MG Tab.CR PO SCH (20:27)
[2022-10-01] MEDS: Benzocaine/Cetylpyridinium/Menthol Lozenge MUCMEM PRN (23:05)
[2022-10-02] MEDS: Benzocaine/Cetylpyridinium/Menthol Lozenge MUCMEM PRN (05:48)
[2022-10-02] MEDS: hydrOXYzine HCl 25 MG Tab PO SCH ×2 (09:22→20:08)
[2022-10-02] MEDS: Divalproex Sodium Delayed-Release 500 MG Tab.CR PO SCH ×2 (09:22→20:09)
[2022-10-02] MEDS: levETIRAcetam 500 MG Tab PO SCH ×2 (09:22→20:09)
[2022-10-02] MEDS: Folic Acid 1 MG Tab PO SCH (09:22)
[2022-10-02] MEDS: risperiDONE 0.5 MG Tab PO SCH ×2 (09:22→20:09)
[2022-10-02] MEDS: oxyCODONE 5 MG Tab PO SCH (09:22)
[2022-10-02] MEDS: Sodium Chloride 1 GM Tab PO SCH ×2 (09:23→20:09)
[2022-10-02] MEDS: Meloxicam 7.5 MG Tab PO SCH (09:23)
[2022-10-02] MEDS: Mirtazapine 15 MG Tab PO SCH (09:23)
[2022-10-02] MEDS: atorvaSTATin 20 MG Tab PO SCH (09:23)
[2022-10-02] MEDS: Simethicone 80 MG Tab.Chew PO SCH ×2 (09:24→20:08)
[2022-10-02] MEDS: Sennosides/Docusate Sodium 50-8.6 MG Tab PO SCH ×2 (09:24→20:08)
[2022-10-02] MEDS: Venlafaxine 75 MG Cap.ER PO SCH ×2 (09:24→20:08)
[2022-10-02] MEDS: amLODIPine 10 MG Tab PO SCH (09:24)
[2022-10-02] MEDS: Metoprolol Tartrate 25 MG Tab PO SCH ×2 (09:26→20:08)
[2022-10-02] MEDS: Pantoprazole 40 MG Tab.CR PO SCH (09:26)
[2022-10-02] MEDS: Carboxymethylcellulose Sodium 1% Ophth Gel 15 ML Bottle EYEBOTH SCH ×3 (09:27→20:07)
[2022-10-02] MEDS: Lacosamide 100 MG Tab PO SCH ×2 (09:28→20:09)
[2022-10-02] MEDS: Baclofen 10 MG Tab PO SCH (09:28)
[2022-10-02] MEDS: Polyethylene Glycol 3350 Powder 17 GM Packet PO SCH (09:28)
[2022-10-02] MEDS: Enoxaparin 40 MG/0.4 ML Syringe SUBCUT SCH (11:47)
[2022-10-02] MEDS: Divalproex Sodium Delayed-Release 250 MG Tab.CR PO SCH (20:08)
[2022-10-03] MEDS: Sodium Chloride 1 GM Tab PO SCH ×2 (09:23→20:54)
[2022-10-03] MEDS: Meloxicam 7.5 MG Tab PO SCH (09:23)
[2022-10-03] MEDS: levETIRAcetam 500 MG Tab PO SCH ×2 (09:23→20:48)
[2022-10-03] MEDS: Sennosides/Docusate Sodium 50-8.6 MG Tab PO SCH ×2 (09:23→20:47)
[2022-10-03] MEDS: Simethicone 80 MG Tab.Chew PO SCH ×2 (09:23→20:47)
[2022-10-03] MEDS: oxyCODONE 5 MG Tab PO SCH (09:25)
[2022-10-03] MEDS: hydrOXYzine HCl 25 MG Tab PO SCH ×2 (09:26→20:48)
[2022-10-03] MEDS: Venlafaxine 75 MG Cap.ER PO SCH ×2 (09:26→20:54)
[2022-10-03] MEDS: Baclofen 10 MG Tab PO SCH (09:26)
[2022-10-03] MEDS: Pantoprazole 40 MG Tab.CR PO SCH (09:26)
[2022-10-03] MEDS: atorvaSTATin 20 MG Tab PO SCH (09:26)
[2022-10-03] MEDS: Mirtazapine 15 MG Tab PO SCH (09:26)
[2022-10-03] MEDS: risperiDONE 0.5 MG Tab PO SCH ×2 (09:26→20:48)
[2022-10-03] MEDS: Folic Acid 1 MG Tab PO SCH (09:27)
[2022-10-03] MEDS: Polyethylene Glycol 3350 Powder 17 GM Packet PO SCH (09:27)
[2022-10-03] MEDS: Divalproex Sodium Delayed-Release 500 MG Tab.CR PO SCH ×2 (09:27→20:48)
[2022-10-03] MEDS: Carboxymethylcellulose Sodium 1% Ophth Gel 15 ML Bottle EYEBOTH SCH ×3 (09:28→20:49)
[2022-10-03] MEDS: Lacosamide 100 MG Tab PO SCH ×2 (09:28→20:54)
[2022-10-03] MEDS: amLODIPine 10 MG Tab PO SCH (09:31)
[2022-10-03] MEDS: Metoprolol Tartrate 25 MG Tab PO SCH ×2 (09:32→20:48)
[2022-10-03] MEDS: Enoxaparin 40 MG/0.4 ML Syringe SUBCUT SCH (10:26)
[2022-10-03] MEDS: Divalproex Sodium Delayed-Release 250 MG Tab.CR PO SCH (20:48)
[2022-10-04] MEDS: Polyethylene Glycol 3350 Powder 17 GM Packet PO SCH (08:47)
[2022-10-04] MEDS: Simethicone 80 MG Tab.Chew PO SCH ×2 (08:48→20:20)
[2022-10-04] MEDS: Sennosides/Docusate Sodium 50-8.6 MG Tab PO SCH ×2 (08:48→20:20)
[2022-10-04] MEDS: Baclofen 10 MG Tab PO SCH (08:48)
[2022-10-04] MEDS: amLODIPine 10 MG Tab PO SCH (08:49)
[2022-10-04] MEDS: oxyCODONE 5 MG Tab PO SCH (08:50)
[2022-10-04] MEDS: hydrOXYzine HCl 25 MG Tab PO SCH ×2 (08:50→20:20)
[2022-10-04] MEDS: Metoprolol Tartrate 25 MG Tab PO SCH ×2 (08:51→20:20)
[2022-10-04] MEDS: Pantoprazole 40 MG Tab.CR PO SCH (08:51)
[2022-10-04] MEDS: Folic Acid 1 MG Tab PO SCH (08:51)
[2022-10-04] MEDS: levETIRAcetam 500 MG Tab PO SCH ×2 (08:52→20:19)
[2022-10-04] MEDS: Meloxicam 7.5 MG Tab PO SCH (08:52)
[2022-10-04] MEDS: risperiDONE 0.5 MG Tab PO SCH (08:52)
[2022-10-04] MEDS: Mirtazapine 15 MG Tab PO SCH (08:52)
[2022-10-04] MEDS: Divalproex Sodium Delayed-Release 500 MG Tab.CR PO SCH ×2 (08:53→20:19)
[2022-10-04] MEDS: Carboxymethylcellulose Sodium 1% Ophth Gel 15 ML Bottle EYEBOTH SCH ×3 (08:54→20:21)
[2022-10-04] MEDS: Lacosamide 100 MG Tab PO SCH ×2 (09:05→20:20)
[2022-10-04] MEDS: Sodium Chloride 1 GM Tab PO SCH ×2 (09:05→20:20)
[2022-10-04] MEDS: atorvaSTATin 20 MG Tab PO SCH (09:06)
[2022-10-04] MEDS: Venlafaxine 75 MG Cap.ER PO SCH (09:06)
[2022-10-04] MEDS: Enoxaparin 40 MG/0.4 ML Syringe SUBCUT SCH (11:36)
[2022-10-04] MEDS: Divalproex Sodium Delayed-Release 250 MG Tab.CR PO SCH (20:20)
[2022-10-05] MEDS: Polyethylene Glycol 3350 Powder 17 GM Packet PO SCH (08:13)
[2022-10-05] MEDS: Divalproex Sodium Delayed-Release 500 MG Tab.CR PO SCH ×2 (08:13→21:17)
[2022-10-05] MEDS: levETIRAcetam 500 MG Tab PO SCH ×2 (08:13→21:18)
[2022-10-05] MEDS: Simethicone 80 MG Tab.Chew PO SCH ×2 (08:14→21:20)
[2022-10-05] MEDS: Sodium Chloride 1 GM Tab PO SCH ×2 (08:14→21:20)
[2022-10-05] MEDS: ARIPiprazole 5 MG Tab PO SCH (08:14)
[2022-10-05] MEDS: Lacosamide 100 MG Tab PO SCH ×2 (08:15→21:20)
[2022-10-05] MEDS: oxyCODONE 5 MG Tab PO SCH (08:15)
[2022-10-05] MEDS: Meloxicam 7.5 MG Tab PO SCH (08:16)
[2022-10-05] MEDS: atorvaSTATin 20 MG Tab PO SCH (08:16)
[2022-10-05] MEDS: hydrOXYzine HCl 25 MG Tab PO SCH ×2 (08:16→21:17)
[2022-10-05] MEDS: Venlafaxine 75 MG Cap.ER PO SCH (08:16)
[2022-10-05] MEDS: Metoprolol Tartrate 25 MG Tab PO SCH ×2 (08:17→21:18)
[2022-10-05] MEDS: Sennosides/Docusate Sodium 50-8.6 MG Tab PO SCH ×2 (08:17→21:19)
[2022-10-05] MEDS: Baclofen 10 MG Tab PO SCH (08:17)
[2022-10-05] MEDS: amLODIPine 10 MG Tab PO SCH (08:18)
[2022-10-05] MEDS: Pantoprazole 40 MG Tab.CR PO SCH (08:19)
[2022-10-05] MEDS: Carboxymethylcellulose Sodium 1% Ophth Gel 15 ML Bottle EYEBOTH SCH ×3 (08:19→21:19)
[2022-10-05] MEDS: Folic Acid 1 MG Tab PO SCH (08:19)
[2022-10-05] MEDS: Enoxaparin 40 MG/0.4 ML Syringe SUBCUT SCH (11:32)
[2022-10-05] MEDS: Divalproex Sodium Delayed-Release 250 MG Tab.CR PO SCH (21:18)
[2022-10-06] MEDS: Polyethylene Glycol 3350 Powder 17 GM Packet PO SCH (09:18)
[2022-10-06] MEDS: levETIRAcetam 500 MG Tab PO SCH ×2 (09:19→20:30)
[2022-10-06] MEDS: Simethicone 80 MG Tab.Chew PO SCH ×2 (09:19→20:31)
[2022-10-06] MEDS: Meloxicam 7.5 MG Tab PO SCH (09:20)
[2022-10-06] MEDS: Venlafaxine 75 MG Cap.ER PO SCH (09:20)
[2022-10-06] MEDS: Sodium Chloride 1 GM Tab PO SCH ×2 (09:20→20:31)
[2022-10-06] MEDS: Sennosides/Docusate Sodium 50-8.6 MG Tab PO SCH ×2 (09:20→20:27)
[2022-10-06] MEDS: atorvaSTATin 20 MG Tab PO SCH (09:21)
[2022-10-06] MEDS: Folic Acid 1 MG Tab PO SCH (09:21)
[2022-10-06] MEDS: Lacosamide 100 MG Tab PO SCH ×2 (09:21→20:31)
[2022-10-06] MEDS: amLODIPine 10 MG Tab PO SCH (09:22)
[2022-10-06] MEDS: hydrOXYzine HCl 25 MG Tab PO SCH ×2 (09:22→20:27)
[2022-10-06] MEDS: Pantoprazole 40 MG Tab.CR PO SCH (09:22)
[2022-10-06] MEDS: Baclofen 10 MG Tab PO SCH (09:22)
[2022-10-06] MEDS: ARIPiprazole 5 MG Tab PO SCH (09:22)
[2022-10-06] MEDS: oxyCODONE 5 MG Tab PO SCH (09:23)
[2022-10-06] MEDS: Metoprolol Tartrate 25 MG Tab PO SCH ×2 (09:23→20:30)
[2022-10-06] MEDS: Divalproex Sodium Delayed-Release 500 MG Tab.CR PO SCH ×2 (09:24→20:29)
[2022-10-06] MEDS: Carboxymethylcellulose Sodium 1% Ophth Gel 15 ML Bottle EYEBOTH SCH ×3 (09:26→20:31)
[2022-10-06] MEDS: Enoxaparin 40 MG/0.4 ML Syringe SUBCUT SCH (11:46)
[2022-10-06] MEDS: Divalproex Sodium Delayed-Release 250 MG Tab.CR PO SCH (20:29)
[2022-10-07] MEDS: oxyCODONE 5 MG Tab PO PRN (02:44)
[2022-10-07] MEDS: levETIRAcetam 500 MG Tab PO SCH ×2 (08:06→20:15)
[2022-10-07] MEDS: oxyCODONE 5 MG Tab PO SCH (08:06)
[2022-10-07] MEDS: ARIPiprazole 5 MG Tab PO SCH (08:07)
[2022-10-07] MEDS: Folic Acid 1 MG Tab PO SCH (08:07)
[2022-10-07] MEDS: Baclofen 10 MG Tab PO SCH (08:07)
[2022-10-07] MEDS: Lacosamide 100 MG Tab PO SCH ×2 (08:07→20:11)
[2022-10-07] MEDS: hydrOXYzine HCl 25 MG Tab PO SCH ×2 (08:07→20:11)
[2022-10-07] MEDS: amLODIPine 10 MG Tab PO SCH (08:07)
[2022-10-07] MEDS: atorvaSTATin 20 MG Tab PO SCH (08:08)
[2022-10-07] MEDS: Metoprolol Tartrate 25 MG Tab PO SCH ×2 (08:08→20:11)
[2022-10-07] MEDS: Sennosides/Docusate Sodium 50-8.6 MG Tab PO SCH ×2 (08:08→20:16)
[2022-10-07] MEDS: Sodium Chloride 1 GM Tab PO SCH ×2 (08:08→20:16)
[2022-10-07] MEDS: Venlafaxine 75 MG Cap.ER PO SCH (08:09)
[2022-10-07] MEDS: Meloxicam 7.5 MG Tab PO SCH (08:09)
[2022-10-07] MEDS: Divalproex Sodium Delayed-Release 500 MG Tab.CR PO SCH ×2 (08:09→20:11)
[2022-10-07] MEDS: Simethicone 80 MG Tab.Chew PO SCH ×2 (08:10→20:16)
[2022-10-07] MEDS: Pantoprazole 40 MG Tab.CR PO SCH (08:10)
[2022-10-07] MEDS: Polyethylene Glycol 3350 Powder 17 GM Packet PO SCH (08:10)
[2022-10-07] MEDS: Carboxymethylcellulose Sodium 1% Ophth Gel 15 ML Bottle EYEBOTH SCH ×3 (08:10→20:24)
[2022-10-07] MEDS: Enoxaparin 40 MG/0.4 ML Syringe SUBCUT SCH (11:24)
[2022-10-07] MEDS ORDERED: LORazepam 0.5 MG Tab PO PRN (11:47)
[2022-10-07] MEDS: Divalproex Sodium Delayed-Release 250 MG Tab.CR PO SCH (20:20)
[2022-10-08] MEDS: Baclofen 10 MG Tab PO SCH (08:41)
[2022-10-08] MEDS: Sennosides/Docusate Sodium 50-8.6 MG Tab PO SCH ×2 (08:41→20:51)
[2022-10-08] MEDS: Metoprolol Tartrate 25 MG Tab PO SCH ×2 (08:41→20:49)
[2022-10-08] MEDS: Meloxicam 7.5 MG Tab PO SCH (08:41)
[2022-10-08] MEDS: Pantoprazole 40 MG Tab.CR PO SCH (08:41)
[2022-10-08] MEDS: amLODIPine 10 MG Tab PO SCH (08:41)
[2022-10-08] MEDS: Lacosamide 100 MG Tab PO SCH ×2 (08:41→20:49)
[2022-10-08] MEDS: Simethicone 80 MG Tab.Chew PO SCH ×2 (08:42→20:49)
[2022-10-08] MEDS: oxyCODONE 5 MG Tab PO SCH (08:42)
[2022-10-08] MEDS: Folic Acid 1 MG Tab PO SCH (08:42)
[2022-10-08] MEDS: atorvaSTATin 20 MG Tab PO SCH (08:42)
[2022-10-08] MEDS: hydrOXYzine HCl 25 MG Tab PO SCH ×2 (08:42→20:45)
[2022-10-08] MEDS: levETIRAcetam 500 MG Tab PO SCH ×2 (08:42→20:45)
[2022-10-08] MEDS: Polyethylene Glycol 3350 Powder 17 GM Packet PO SCH (08:43)
[2022-10-08] MEDS: Sodium Chloride 1 GM Tab PO SCH ×2 (08:43→20:51)
[2022-10-08] MEDS: ARIPiprazole 5 MG Tab PO SCH (08:43)
[2022-10-08] MEDS: Carboxymethylcellulose Sodium 1% Ophth Gel 15 ML Bottle EYEBOTH SCH ×3 (08:43→20:52)
[2022-10-08] MEDS: Divalproex Sodium Delayed-Release 500 MG Tab.CR PO SCH ×2 (08:43→20:47)
[2022-10-08] MEDS: Venlafaxine 75 MG Cap.ER PO SCH (08:43)
[2022-10-08] MEDS: Enoxaparin 40 MG/0.4 ML Syringe SUBCUT SCH (10:52)
[2022-10-08] MEDS: Divalproex Sodium Delayed-Release 250 MG Tab.CR PO SCH (20:49)
[2022-10-09] MEDS: Metoprolol Tartrate 25 MG Tab PO SCH ×2 (08:20→20:15)
[2022-10-09] MEDS: Meloxicam 7.5 MG Tab PO SCH (08:20)
[2022-10-09] MEDS: Simethicone 80 MG Tab.Chew PO SCH ×2 (08:20→20:14)
[2022-10-09] MEDS: levETIRAcetam 500 MG Tab PO SCH ×2 (08:20→20:15)
[2022-10-09] MEDS: Venlafaxine 75 MG Cap.ER PO SCH (08:21)
[2022-10-09] MEDS: Folic Acid 1 MG Tab PO SCH (08:21)
[2022-10-09] MEDS: Sodium Chloride 1 GM Tab PO SCH ×2 (08:21→20:15)
[2022-10-09] MEDS: amLODIPine 10 MG Tab PO SCH (08:21)
[2022-10-09] MEDS: Sennosides/Docusate Sodium 50-8.6 MG Tab PO SCH ×2 (08:21→20:14)
[2022-10-09] MEDS: Divalproex Sodium Delayed-Release 500 MG Tab.CR PO SCH ×2 (08:21→20:15)
[2022-10-09] MEDS: hydrOXYzine HCl 25 MG Tab PO SCH ×2 (08:22→20:16)
[2022-10-09] MEDS: atorvaSTATin 20 MG Tab PO SCH (08:22)
[2022-10-09] MEDS: ARIPiprazole 5 MG Tab PO SCH (08:22)
[2022-10-09] MEDS: Baclofen 10 MG Tab PO SCH (08:22)
[2022-10-09] MEDS: Polyethylene Glycol 3350 Powder 17 GM Packet PO SCH (08:22)
[2022-10-09] MEDS: oxyCODONE 5 MG Tab PO SCH (08:22)
[2022-10-09] MEDS: Lacosamide 100 MG Tab PO SCH ×2 (08:22→20:15)
[2022-10-09] MEDS: Pantoprazole 40 MG Tab.CR PO SCH (08:22)
[2022-10-09] MEDS: Carboxymethylcellulose Sodium 1% Ophth Gel 15 ML Bottle EYEBOTH SCH ×3 (08:23→20:16)
[2022-10-09] MEDS: Enoxaparin 40 MG/0.4 ML Syringe SUBCUT SCH (11:45)
[2022-10-09] MEDS: Divalproex Sodium Delayed-Release 250 MG Tab.CR PO SCH (20:15)
[2022-10-10] MEDS: Polyethylene Glycol 3350 Powder 17 GM Packet PO SCH (08:37)
[2022-10-10] MEDS: Simethicone 80 MG Tab.Chew PO SCH ×2 (08:38→22:11)
[2022-10-10] MEDS: Sennosides/Docusate Sodium 50-8.6 MG Tab PO SCH ×2 (08:38→22:09)
[2022-10-10] MEDS: Folic Acid 1 MG Tab PO SCH (08:39)
[2022-10-10] MEDS: Meloxicam 7.5 MG Tab PO SCH (08:39)
[2022-10-10] MEDS: Divalproex Sodium Delayed-Release 500 MG Tab.CR PO SCH ×2 (08:39→22:08)
[2022-10-10] MEDS: levETIRAcetam 500 MG Tab PO SCH ×2 (08:39→22:08)
[2022-10-10] MEDS: Pantoprazole 40 MG Tab.CR PO SCH (08:39)
[2022-10-10] MEDS: oxyCODONE 5 MG Tab PO SCH (08:39)
[2022-10-10] MEDS: ARIPiprazole 5 MG Tab PO SCH (08:40)
[2022-10-10] MEDS: amLODIPine 10 MG Tab PO SCH (08:40)
[2022-10-10] MEDS: Baclofen 10 MG Tab PO SCH (08:40)
[2022-10-10] MEDS: Venlafaxine 75 MG Cap.ER PO SCH (08:40)
[2022-10-10] MEDS: Metoprolol Tartrate 25 MG Tab PO SCH ×2 (08:40→22:09)
[2022-10-10] MEDS: hydrOXYzine HCl 25 MG Tab PO SCH ×2 (08:40→22:09)
[2022-10-10] MEDS: Sodium Chloride 1 GM Tab PO SCH ×2 (08:41→22:07)
[2022-10-10] MEDS: Lacosamide 100 MG Tab PO SCH ×2 (08:41→22:07)
[2022-10-10] MEDS: atorvaSTATin 20 MG Tab PO SCH (08:41)
[2022-10-10] MEDS: Carboxymethylcellulose Sodium 1% Ophth Gel 15 ML Bottle EYEBOTH SCH ×3 (08:47→22:11)
[2022-10-10] MEDS: Enoxaparin 40 MG/0.4 ML Syringe SUBCUT SCH (11:56)
[2022-10-10] MEDS: Divalproex Sodium Delayed-Release 250 MG Tab.CR PO SCH (22:09)
[2022-10-11] MEDS: levETIRAcetam 500 MG Tab PO SCH ×2 (09:33→21:54)
[2022-10-11] MEDS: Metoprolol Tartrate 25 MG Tab PO SCH ×2 (09:33→21:55)
[2022-10-11] MEDS: Folic Acid 1 MG Tab PO SCH (09:34)
[2022-10-11] MEDS: Simethicone 80 MG Tab.Chew PO SCH ×2 (09:34→21:55)
[2022-10-11] MEDS: Lacosamide 100 MG Tab PO SCH ×2 (09:34→21:56)
[2022-10-11] MEDS: Pantoprazole 40 MG Tab.CR PO SCH (09:34)
[2022-10-11] MEDS: Divalproex Sodium Delayed-Release 500 MG Tab.CR PO SCH ×2 (09:34→21:55)
[2022-10-11] MEDS: Sodium Chloride 1 GM Tab PO SCH ×2 (09:34→21:54)
[2022-10-11] MEDS: oxyCODONE 5 MG Tab PO SCH (09:35)
[2022-10-11] MEDS: Venlafaxine 75 MG Cap.ER PO SCH (09:35)
[2022-10-11] MEDS: hydrOXYzine HCl 25 MG Tab PO SCH ×2 (09:35→22:54)
[2022-10-11] MEDS: atorvaSTATin 20 MG Tab PO SCH (09:35)
[2022-10-11] MEDS: Baclofen 10 MG Tab PO SCH (09:35)
[2022-10-11] MEDS: Meloxicam 7.5 MG Tab PO SCH (09:36)
[2022-10-11] MEDS: Polyethylene Glycol 3350 Powder 17 GM Packet PO SCH (09:36)
[2022-10-11] MEDS: Sennosides/Docusate Sodium 50-8.6 MG Tab PO SCH ×2 (09:36→22:57)
[2022-10-11] MEDS: ARIPiprazole 5 MG Tab PO SCH (09:36)
[2022-10-11] MEDS: Carboxymethylcellulose Sodium 1% Ophth Gel 15 ML Bottle EYEBOTH SCH ×3 (09:40→21:57)
[2022-10-11] MEDS: amLODIPine 10 MG Tab PO SCH (09:42)
[2022-10-11] MEDS: Enoxaparin 40 MG/0.4 ML Syringe SUBCUT SCH (10:10)
[2022-10-11] MEDS: Divalproex Sodium Delayed-Release 250 MG Tab.CR PO SCH (21:56)
[2022-10-12] MEDS: Simethicone 80 MG Tab.Chew PO SCH ×2 (09:29→20:03)
[2022-10-12] MEDS: levETIRAcetam 500 MG Tab PO SCH ×2 (09:29→20:03)
[2022-10-12] MEDS: atorvaSTATin 20 MG Tab PO SCH (09:30)
[2022-10-12] MEDS: Pantoprazole 40 MG Tab.CR PO SCH (09:30)
[2022-10-12] MEDS: Sennosides/Docusate Sodium 50-8.6 MG Tab PO SCH ×2 (09:30→20:03)
[2022-10-12] MEDS: Sodium Chloride 1 GM Tab PO SCH ×2 (09:32→20:02)
[2022-10-12] MEDS: Folic Acid 1 MG Tab PO SCH (09:32)
[2022-10-12] MEDS: oxyCODONE 5 MG Tab PO SCH (09:32)
[2022-10-12] MEDS: Meloxicam 7.5 MG Tab PO SCH (09:34)
[2022-10-12] MEDS: Divalproex Sodium Delayed-Release 500 MG Tab.CR PO SCH ×2 (09:35→20:03)
[2022-10-12] MEDS: Venlafaxine 75 MG Cap.ER PO SCH (09:35)
[2022-10-12] MEDS: ARIPiprazole 5 MG Tab PO SCH (09:35)
[2022-10-12] MEDS: hydrOXYzine HCl 25 MG Tab PO SCH ×2 (09:35→20:04)
[2022-10-12] MEDS: Lacosamide 100 MG Tab PO SCH ×2 (09:35→20:03)
[2022-10-12] MEDS: amLODIPine 10 MG Tab PO SCH (09:36)
[2022-10-12] MEDS: Metoprolol Tartrate 25 MG Tab PO SCH ×2 (09:37→20:04)
[2022-10-12] MEDS: Polyethylene Glycol 3350 Powder 17 GM Packet PO SCH (09:37)
[2022-10-12] MEDS: Carboxymethylcellulose Sodium 1% Ophth Gel 15 ML Bottle EYEBOTH SCH ×3 (09:46→20:05)
[2022-10-12] MEDS: Baclofen 10 MG Tab PO SCH (10:53)
[2022-10-12] MEDS: Enoxaparin 40 MG/0.4 ML Syringe SUBCUT SCH (10:54)
[2022-10-12] MEDS: Divalproex Sodium Delayed-Release 250 MG Tab.CR PO SCH (20:04)
[2022-10-13] MEDS: hydrOXYzine HCl 25 MG Tab PO SCH ×2 (08:16→20:59)
[2022-10-13] MEDS: Folic Acid 1 MG Tab PO SCH (08:16)
[2022-10-13] MEDS: Sennosides/Docusate Sodium 50-8.6 MG Tab PO SCH ×2 (08:16→21:00)
[2022-10-13] MEDS: Simethicone 80 MG Tab.Chew PO SCH ×2 (08:16→20:55)
[2022-10-13] MEDS: Meloxicam 7.5 MG Tab PO SCH (08:17)
[2022-10-13] MEDS: Pantoprazole 40 MG Tab.CR PO SCH (08:17)
[2022-10-13] MEDS: Baclofen 10 MG Tab PO SCH (08:17)
[2022-10-13] MEDS: amLODIPine 10 MG Tab PO SCH (08:17)
[2022-10-13] MEDS: atorvaSTATin 20 MG Tab PO SCH (08:18)
[2022-10-13] MEDS: Divalproex Sodium Delayed-Release 500 MG Tab.CR PO SCH ×2 (08:18→20:57)
[2022-10-13] MEDS: oxyCODONE 5 MG Tab PO SCH (08:18)
[2022-10-13] MEDS: Venlafaxine 75 MG Cap.ER PO SCH (08:19)
[2022-10-13] MEDS: levETIRAcetam 500 MG Tab PO SCH ×2 (08:19→20:58)
[2022-10-13] MEDS: Polyethylene Glycol 3350 Powder 17 GM Packet PO SCH (08:19)
[2022-10-13] MEDS: ARIPiprazole 5 MG Tab PO SCH (08:20)
[2022-10-13] MEDS: Sodium Chloride 1 GM Tab PO SCH ×2 (08:20→20:59)
[2022-10-13] MEDS: Metoprolol Tartrate 25 MG Tab PO SCH ×2 (08:20→20:57)
[2022-10-13] MEDS: Lacosamide 100 MG Tab PO SCH ×2 (08:20→20:59)
[2022-10-13] MEDS: Carboxymethylcellulose Sodium 1% Ophth Gel 15 ML Bottle EYEBOTH SCH ×3 (08:21→21:00)
[2022-10-13] MEDS: Enoxaparin 40 MG/0.4 ML Syringe SUBCUT SCH (12:16)
[2022-10-13] MEDS: Divalproex Sodium Delayed-Release 250 MG Tab.CR PO SCH (20:58)
[2022-10-14] MEDS: Polyethylene Glycol 3350 Powder 17 GM Packet PO SCH (08:03)
[2022-10-14] MEDS: Sodium Chloride 1 GM Tab PO SCH ×2 (08:06→20:27)
[2022-10-14] MEDS: Folic Acid 1 MG Tab PO SCH (08:06)
[2022-10-14] MEDS: Divalproex Sodium Delayed-Release 500 MG Tab.CR PO SCH ×3 (08:06→20:27)
[2022-10-14] MEDS: levETIRAcetam 500 MG Tab PO SCH ×2 (08:07→20:29)
[2022-10-14] MEDS: Lacosamide 100 MG Tab PO SCH ×2 (08:07→20:27)
[2022-10-14] MEDS: Simethicone 80 MG Tab.Chew PO SCH ×2 (08:07→20:26)
[2022-10-14] MEDS: Meloxicam 7.5 MG Tab PO SCH (08:07)
[2022-10-14] MEDS: hydrOXYzine HCl 25 MG Tab PO SCH ×2 (08:07→20:27)
[2022-10-14] MEDS: oxyCODONE 5 MG Tab PO SCH (08:08)
[2022-10-14] MEDS: Pantoprazole 40 MG Tab.CR PO SCH (08:08)
[2022-10-14] MEDS: Metoprolol Tartrate 25 MG Tab PO SCH ×2 (08:08→20:30)
[2022-10-14] MEDS: ARIPiprazole 5 MG Tab PO SCH (08:08)
[2022-10-14] MEDS: Venlafaxine 75 MG Cap.ER PO SCH (08:09)
[2022-10-14] MEDS: Baclofen 10 MG Tab PO SCH (08:09)
[2022-10-14] MEDS: amLODIPine 10 MG Tab PO SCH (08:09)
[2022-10-14] MEDS: atorvaSTATin 20 MG Tab PO SCH (08:09)
[2022-10-14] MEDS: Sennosides/Docusate Sodium 50-8.6 MG Tab PO SCH (08:10)
[2022-10-14] MEDS: Carboxymethylcellulose Sodium 1% Ophth Gel 15 ML Bottle EYEBOTH SCH ×3 (09:00→20:30)
[2022-10-14] MEDS: Enoxaparin 40 MG/0.4 ML Syringe SUBCUT SCH (12:30)
[2022-10-14] MEDS: Divalproex Sodium Delayed-Release 250 MG Tab.CR PO SCH (20:28)
[2022-10-14] MEDS: oxyCODONE 5 MG Tab PO PRN (20:41)
[2022-10-15] MEDS: Sodium Chloride 1 GM Tab PO SCH ×2 (08:17→20:54)
[2022-10-15] MEDS: ARIPiprazole 5 MG Tab PO SCH (08:17)
[2022-10-15] MEDS: Lacosamide 100 MG Tab PO SCH ×2 (08:18→20:56)
[2022-10-15] MEDS: Folic Acid 1 MG Tab PO SCH (08:18)
[2022-10-15] MEDS: amLODIPine 10 MG Tab PO SCH (08:19)
[2022-10-15] MEDS: levETIRAcetam 500 MG Tab PO SCH ×2 (08:23→20:55)
[2022-10-15] MEDS: Venlafaxine 75 MG Cap.ER PO SCH (08:24)
[2022-10-15] MEDS: oxyCODONE 5 MG Tab PO SCH (08:24)
[2022-10-15] MEDS: hydrOXYzine HCl 25 MG Tab PO SCH ×2 (08:25→20:54)
[2022-10-15] MEDS: Meloxicam 7.5 MG Tab PO SCH (08:28)
[2022-10-15] MEDS: Baclofen 10 MG Tab PO SCH (08:28)
[2022-10-15] MEDS: Pantoprazole 40 MG Tab.CR PO SCH (08:28)
[2022-10-15] MEDS: atorvaSTATin 20 MG Tab PO SCH (08:29)
[2022-10-15] MEDS: Metoprolol Tartrate 25 MG Tab PO SCH ×2 (08:30→20:57)
[2022-10-15] MEDS: Divalproex Sodium Delayed-Release 500 MG Tab.CR PO SCH ×2 (08:31→20:57)
[2022-10-15] MEDS: Simethicone 80 MG Tab.Chew PO SCH ×2 (08:32→20:54)
[2022-10-15] MEDS: Carboxymethylcellulose Sodium 1% Ophth Gel 15 ML Bottle EYEBOTH SCH ×3 (08:32→20:58)
[2022-10-15] MEDS: Polyethylene Glycol 3350 Powder 17 GM Packet PO PRN (08:39)
[2022-10-15] MEDS: Enoxaparin 40 MG/0.4 ML Syringe SUBCUT SCH (11:25)
[2022-10-15] MEDS: Divalproex Sodium Delayed-Release 250 MG Tab.CR PO SCH (20:58)
[2022-10-16] MEDS: Venlafaxine 75 MG Cap.ER PO SCH (08:38)
[2022-10-16] MEDS: Simethicone 80 MG Tab.Chew PO SCH ×2 (08:38→21:38)
[2022-10-16] MEDS: Sodium Chloride 1 GM Tab PO SCH ×2 (08:38→21:38)
[2022-10-16] MEDS: Divalproex Sodium Delayed-Release 500 MG Tab.CR PO SCH ×2 (08:39→21:39)
[2022-10-16] MEDS: Lacosamide 100 MG Tab PO SCH ×2 (08:39→21:39)
[2022-10-16] MEDS: hydrOXYzine HCl 25 MG Tab PO SCH ×2 (08:39→21:39)
[2022-10-16] MEDS: ARIPiprazole 5 MG Tab PO SCH (08:39)
[2022-10-16] MEDS: levETIRAcetam 500 MG Tab PO SCH ×2 (08:39→21:39)
[2022-10-16] MEDS: oxyCODONE 5 MG Tab PO SCH (08:39)
[2022-10-16] MEDS: Metoprolol Tartrate 25 MG Tab PO SCH ×2 (08:40→21:39)
[2022-10-16] MEDS: Folic Acid 1 MG Tab PO SCH (08:40)
[2022-10-16] MEDS: Pantoprazole 40 MG Tab.CR PO SCH (08:40)
[2022-10-16] MEDS: Baclofen 10 MG Tab PO SCH (08:40)
[2022-10-16] MEDS: atorvaSTATin 20 MG Tab PO SCH (08:40)
[2022-10-16] MEDS: Meloxicam 7.5 MG Tab PO SCH (08:41)
[2022-10-16] MEDS: Carboxymethylcellulose Sodium 1% Ophth Gel 15 ML Bottle EYEBOTH SCH ×3 (08:41→21:37)
[2022-10-16] MEDS: amLODIPine 10 MG Tab PO SCH (08:41)
[2022-10-16] MEDS: Enoxaparin 40 MG/0.4 ML Syringe SUBCUT SCH (12:50)
[2022-10-16] MEDS: Divalproex Sodium Delayed-Release 250 MG Tab.CR PO SCH (21:39)
[2022-10-17] MEDS: levETIRAcetam 500 MG Tab PO SCH ×2 (08:16→20:47)
[2022-10-17] MEDS: Sodium Chloride 1 GM Tab PO SCH ×2 (08:16→20:47)
[2022-10-17] MEDS: ARIPiprazole 5 MG Tab PO SCH (08:17)
[2022-10-17] MEDS: Lacosamide 100 MG Tab PO SCH ×2 (08:17→20:47)
[2022-10-17] MEDS: Folic Acid 1 MG Tab PO SCH (08:17)
[2022-10-17] MEDS: hydrOXYzine HCl 25 MG Tab PO SCH ×2 (08:18→20:47)
[2022-10-17] MEDS: Simethicone 80 MG Tab.Chew PO SCH ×2 (08:18→20:48)
[2022-10-17] MEDS: atorvaSTATin 20 MG Tab PO SCH (08:18)
[2022-10-17] MEDS: amLODIPine 10 MG Tab PO SCH (08:19)
[2022-10-17] MEDS: Baclofen 10 MG Tab PO SCH (08:19)
[2022-10-17] MEDS: Metoprolol Tartrate 25 MG Tab PO SCH ×2 (08:19→20:48)
[2022-10-17] MEDS: Venlafaxine 75 MG Cap.ER PO SCH (08:20)
[2022-10-17] MEDS: oxyCODONE 5 MG Tab PO SCH (08:20)
[2022-10-17] MEDS: Pantoprazole 40 MG Tab.CR PO SCH (08:20)
[2022-10-17] MEDS: Meloxicam 7.5 MG Tab PO SCH (08:20)
[2022-10-17] MEDS: Divalproex Sodium Delayed-Release 500 MG Tab.CR PO SCH ×2 (08:21→20:47)
[2022-10-17] MEDS: Carboxymethylcellulose Sodium 1% Ophth Gel 15 ML Bottle EYEBOTH SCH ×3 (08:23→20:47)
[2022-10-17] MEDS: Polyethylene Glycol 3350 Powder 17 GM Packet PO PRN (08:31)
[2022-10-17] MEDS: Enoxaparin 40 MG/0.4 ML Syringe SUBCUT SCH (10:32)
[2022-10-17] MEDS: Divalproex Sodium Delayed-Release 250 MG Tab.CR PO SCH (20:47)
[2022-10-17] MEDS: Acetaminophen 325 MG Tab PO PRN (22:33)
[2022-10-18] MEDS: Simethicone 80 MG Tab.Chew PO SCH ×3 (08:18→22:11)
[2022-10-18] MEDS: Sodium Chloride 1 GM Tab PO SCH ×2 (08:19→22:06)
[2022-10-18] MEDS: ARIPiprazole 5 MG Tab PO SCH (08:20)
[2022-10-18] MEDS: Lacosamide 100 MG Tab PO SCH ×2 (08:20→22:06)
[2022-10-18] MEDS: Folic Acid 1 MG Tab PO SCH (08:21)
[2022-10-18] MEDS: atorvaSTATin 20 MG Tab PO SCH (08:21)
[2022-10-18] MEDS: Divalproex Sodium Delayed-Release 500 MG Tab.CR PO SCH ×2 (08:21→22:04)
[2022-10-18] MEDS: levETIRAcetam 500 MG Tab PO SCH ×2 (08:22→22:06)
[2022-10-18] MEDS: Metoprolol Tartrate 25 MG Tab PO SCH ×2 (08:23→22:05)
[2022-10-18] MEDS: amLODIPine 10 MG Tab PO SCH (08:24)
[2022-10-18] MEDS: oxyCODONE 5 MG Tab PO SCH (08:24)
[2022-10-18] MEDS: Meloxicam 7.5 MG Tab PO SCH (08:25)
[2022-10-18] MEDS: Pantoprazole 40 MG Tab.CR PO SCH (08:28)
[2022-10-18] MEDS: Venlafaxine 75 MG Cap.ER PO SCH (08:28)
[2022-10-18] MEDS: hydrOXYzine HCl 25 MG Tab PO SCH ×2 (08:28→22:07)
[2022-10-18] MEDS: Baclofen 10 MG Tab PO SCH (08:28)
[2022-10-18] MEDS: Carboxymethylcellulose Sodium 1% Ophth Gel 15 ML Bottle EYEBOTH SCH ×3 (08:29→22:58)
[2022-10-18] MEDS: Enoxaparin 40 MG/0.4 ML Syringe SUBCUT SCH (12:42)
[2022-10-18] MEDS: Divalproex Sodium Delayed-Release 250 MG Tab.CR PO SCH (22:03)
[2022-10-18] MEDS: Acetaminophen 325 MG Tab PO PRN (22:18)
[2022-10-19] MEDS: levETIRAcetam 500 MG Tab PO SCH ×2 (09:05→22:01)
[2022-10-19] MEDS: Divalproex Sodium Delayed-Release 500 MG Tab.CR PO SCH ×2 (09:07→22:02)
[2022-10-19] MEDS: Venlafaxine 75 MG Cap.ER PO SCH (09:08)
[2022-10-19] MEDS: Lacosamide 100 MG Tab PO SCH ×2 (09:08→22:02)
[2022-10-19] MEDS: Pantoprazole 40 MG Tab.CR PO SCH (09:09)
[2022-10-19] MEDS: Sodium Chloride 1 GM Tab PO SCH ×2 (09:09→22:02)
[2022-10-19] MEDS: ARIPiprazole 5 MG Tab PO SCH (09:10)
[2022-10-19] MEDS: oxyCODONE 5 MG Tab PO SCH (09:10)
[2022-10-19] MEDS: atorvaSTATin 20 MG Tab PO SCH (09:10)
[2022-10-19] MEDS: Folic Acid 1 MG Tab PO SCH (09:10)
[2022-10-19] MEDS: amLODIPine 10 MG Tab PO SCH (09:11)
[2022-10-19] MEDS: Baclofen 10 MG Tab PO SCH (09:11)
[2022-10-19] MEDS: Meloxicam 7.5 MG Tab PO SCH (09:11)
[2022-10-19] MEDS: Metoprolol Tartrate 25 MG Tab PO SCH ×2 (09:11→22:03)
[2022-10-19] MEDS: hydrOXYzine HCl 25 MG Tab PO SCH ×2 (09:11→22:02)
[2022-10-19] MEDS: Simethicone 80 MG Tab.Chew PO SCH ×2 (09:12→22:02)
[2022-10-19] MEDS: Carboxymethylcellulose Sodium 1% Ophth Gel 15 ML Bottle EYEBOTH SCH ×3 (09:15→22:00)
[2022-10-19] MEDS: Enoxaparin 40 MG/0.4 ML Syringe SUBCUT SCH (17:55)
[2022-10-19] MEDS: Divalproex Sodium Delayed-Release 250 MG Tab.CR PO SCH (22:02)
[2022-10-19] MEDS: Carboxymethylcellulose Sodium 1% Ophth Gel 15 ML Bottle EYEBOTH PRN (22:04)
[2022-10-20] MEDS: Meloxicam 7.5 MG Tab PO SCH (08:16)
[2022-10-20] MEDS: Divalproex Sodium Delayed-Release 500 MG Tab.CR PO SCH ×2 (08:16→22:18)
[2022-10-20] MEDS: atorvaSTATin 20 MG Tab PO SCH (08:16)
[2022-10-20] MEDS: levETIRAcetam 500 MG Tab PO SCH ×2 (08:16→22:11)
[2022-10-20] MEDS: Sodium Chloride 1 GM Tab PO SCH ×2 (08:16→22:11)
[2022-10-20] MEDS: Venlafaxine 75 MG Cap.ER PO SCH (08:17)
[2022-10-20] MEDS: Folic Acid 1 MG Tab PO SCH (08:17)
[2022-10-20] MEDS: Lacosamide 100 MG Tab PO SCH ×2 (08:17→22:13)
[2022-10-20] MEDS: Simethicone 80 MG Tab.Chew PO SCH ×2 (08:17→22:15)
[2022-10-20] MEDS: Metoprolol Tartrate 25 MG Tab PO SCH ×2 (08:17→22:12)
[2022-10-20] MEDS: ARIPiprazole 5 MG Tab PO SCH (08:17)
[2022-10-20] MEDS: Pantoprazole 40 MG Tab.CR PO SCH (08:17)
[2022-10-20] MEDS: hydrOXYzine HCl 25 MG Tab PO SCH ×2 (08:17→22:13)
[2022-10-20] MEDS: Baclofen 10 MG Tab PO SCH (08:18)
[2022-10-20] MEDS: amLODIPine 10 MG Tab PO SCH (08:18)
[2022-10-20] MEDS: oxyCODONE 5 MG Tab PO SCH (08:18)
[2022-10-20] MEDS: Carboxymethylcellulose Sodium 1% Ophth Gel 15 ML Bottle EYEBOTH SCH ×3 (08:19→22:13)
[2022-10-20] MEDS: Enoxaparin 40 MG/0.4 ML Syringe SUBCUT SCH (10:55)
[2022-10-20] MEDS: Divalproex Sodium Delayed-Release 250 MG Tab.CR PO SCH (22:11)
[2022-10-20] MEDS: Carboxymethylcellulose Sodium 1% Ophth Gel 15 ML Bottle EYEBOTH PRN (22:15)
[2022-10-20] MEDS: Acetaminophen 325 MG Tab PO PRN (22:18)
[2022-10-21] MEDS: levETIRAcetam 500 MG Tab PO SCH ×2 (08:11→20:54)
[2022-10-21] MEDS: Sodium Chloride 1 GM Tab PO SCH ×2 (08:12→20:54)
[2022-10-21] MEDS: Divalproex Sodium Delayed-Release 500 MG Tab.CR PO SCH ×2 (08:12→20:54)
[2022-10-21] MEDS: Lacosamide 100 MG Tab PO SCH ×2 (08:13→20:54)
[2022-10-21] MEDS: Pantoprazole 40 MG Tab.CR PO SCH (08:13)
[2022-10-21] MEDS: Simethicone 80 MG Tab.Chew PO SCH ×2 (08:13→20:55)
[2022-10-21] MEDS: Meloxicam 7.5 MG Tab PO SCH (08:14)
[2022-10-21] MEDS: Folic Acid 1 MG Tab PO SCH (08:14)
[2022-10-21] MEDS: ARIPiprazole 5 MG Tab PO SCH (08:14)
[2022-10-21] MEDS: atorvaSTATin 20 MG Tab PO SCH (08:14)
[2022-10-21] MEDS: amLODIPine 10 MG Tab PO SCH (08:14)
[2022-10-21] MEDS: Venlafaxine 75 MG Cap.ER PO SCH (08:14)
[2022-10-21] MEDS: Baclofen 10 MG Tab PO SCH (08:14)
[2022-10-21] MEDS: hydrOXYzine HCl 25 MG Tab PO SCH ×2 (08:15→20:55)
[2022-10-21] MEDS: oxyCODONE 5 MG Tab PO SCH (08:15)
[2022-10-21] MEDS: Metoprolol Tartrate 25 MG Tab PO SCH ×2 (08:15→20:54)
[2022-10-21] MEDS: Carboxymethylcellulose Sodium 1% Ophth Gel 15 ML Bottle EYEBOTH SCH ×3 (08:18→20:56)
[2022-10-21] MEDS: Enoxaparin 40 MG/0.4 ML Syringe SUBCUT SCH (11:55)
[2022-10-21] MEDS: oxyCODONE 5 MG Tab PO PRN (11:59)
[2022-10-21] MEDS: Lidocaine 4% 1 each Patch TOP PRN (17:09)
[2022-10-21] MEDS: Divalproex Sodium Delayed-Release 250 MG Tab.CR PO SCH (20:55)
[2022-10-22] MEDS: levETIRAcetam 500 MG Tab PO SCH ×2 (08:09→20:14)
[2022-10-22] MEDS: Simethicone 80 MG Tab.Chew PO SCH ×2 (08:09→20:14)
[2022-10-22] MEDS: Divalproex Sodium Delayed-Release 500 MG Tab.CR PO SCH ×2 (08:10→20:13)
[2022-10-22] MEDS: oxyCODONE 5 MG Tab PO SCH (08:10)
[2022-10-22] MEDS: Pantoprazole 40 MG Tab.CR PO SCH (08:10)
[2022-10-22] MEDS: Venlafaxine 75 MG Cap.ER PO SCH (08:10)
[2022-10-22] MEDS: Sodium Chloride 1 GM Tab PO SCH ×2 (08:10→20:14)
[2022-10-22] MEDS: amLODIPine 10 MG Tab PO SCH (08:11)
[2022-10-22] MEDS: Baclofen 10 MG Tab PO SCH (08:11)
[2022-10-22] MEDS: ARIPiprazole 5 MG Tab PO SCH (08:11)
[2022-10-22] MEDS: Meloxicam 7.5 MG Tab PO SCH (08:11)
[2022-10-22] MEDS: Lacosamide 100 MG Tab PO SCH ×2 (08:11→20:14)
[2022-10-22] MEDS: hydrOXYzine HCl 25 MG Tab PO SCH ×2 (08:11→20:14)
[2022-10-22] MEDS: Folic Acid 1 MG Tab PO SCH (08:14)
[2022-10-22] MEDS: Metoprolol Tartrate 25 MG Tab PO SCH ×2 (08:14→20:14)
[2022-10-22] MEDS: atorvaSTATin 20 MG Tab PO SCH (08:14)
[2022-10-22] MEDS: Carboxymethylcellulose Sodium 1% Ophth Gel 15 ML Bottle EYEBOTH SCH ×3 (08:15→20:15)
[2022-10-22] MEDS: Enoxaparin 40 MG/0.4 ML Syringe SUBCUT SCH (10:31)
[2022-10-22] MEDS: Polyethylene Glycol 3350 Powder 17 GM Packet PO PRN (16:55)
[2022-10-22] MEDS: Divalproex Sodium Delayed-Release 250 MG Tab.CR PO SCH (20:14)
[2022-10-23] MEDS: Lidocaine 4% 1 each Patch TOP PRN (06:23)
[2022-10-23] MEDS: Divalproex Sodium Delayed-Release 500 MG Tab.CR PO SCH ×2 (08:08→20:33)
[2022-10-23] MEDS: Meloxicam 7.5 MG Tab PO SCH (08:08)
[2022-10-23] MEDS: Metoprolol Tartrate 25 MG Tab PO SCH ×2 (08:08→20:33)
[2022-10-23] MEDS: Sodium Chloride 1 GM Tab PO SCH ×2 (08:09→20:33)
[2022-10-23] MEDS: levETIRAcetam 500 MG Tab PO SCH ×2 (08:09→20:32)
[2022-10-23] MEDS: Venlafaxine 75 MG Cap.ER PO SCH (08:10)
[2022-10-23] MEDS: oxyCODONE 5 MG Tab PO SCH (08:10)
[2022-10-23] MEDS: Simethicone 80 MG Tab.Chew PO SCH ×2 (08:10→20:33)
[2022-10-23] MEDS: atorvaSTATin 20 MG Tab PO SCH (08:10)
[2022-10-23] MEDS: Lacosamide 100 MG Tab PO SCH ×2 (08:10→20:32)
[2022-10-23] MEDS: Pantoprazole 40 MG Tab.CR PO SCH (08:10)
[2022-10-23] MEDS: Folic Acid 1 MG Tab PO SCH (08:10)
[2022-10-23] MEDS: ARIPiprazole 5 MG Tab PO SCH (08:10)
[2022-10-23] MEDS: hydrOXYzine HCl 25 MG Tab PO SCH ×2 (08:10→20:34)
[2022-10-23] MEDS: amLODIPine 10 MG Tab PO SCH (08:11)
[2022-10-23] MEDS: Baclofen 10 MG Tab PO SCH (08:12)
[2022-10-23] MEDS: Carboxymethylcellulose Sodium 1% Ophth Gel 15 ML Bottle EYEBOTH SCH ×3 (08:12→20:34)
[2022-10-23] MEDS: Enoxaparin 40 MG/0.4 ML Syringe SUBCUT SCH (12:04)
[2022-10-23] MEDS: Divalproex Sodium Delayed-Release 250 MG Tab.CR PO SCH (20:33)
[2022-10-24] MEDS: Lidocaine 4% 1 each Patch TOP PRN (08:31)
[2022-10-24] MEDS: Divalproex Sodium Delayed-Release 500 MG Tab.CR PO SCH ×2 (08:32→20:13)
[2022-10-24] MEDS: levETIRAcetam 500 MG Tab PO SCH ×2 (08:33→20:11)
[2022-10-24] MEDS: Sodium Chloride 1 GM Tab PO SCH ×2 (08:33→20:11)
[2022-10-24] MEDS: Venlafaxine 75 MG Cap.ER PO SCH (08:34)
[2022-10-24] MEDS: Simethicone 80 MG Tab.Chew PO SCH ×2 (08:35→20:13)
[2022-10-24] MEDS: Pantoprazole 40 MG Tab.CR PO SCH (08:35)
[2022-10-24] MEDS: Lacosamide 100 MG Tab PO SCH ×2 (08:35→20:11)
[2022-10-24] MEDS: atorvaSTATin 20 MG Tab PO SCH (08:36)
[2022-10-24] MEDS: Baclofen 10 MG Tab PO SCH (08:36)
[2022-10-24] MEDS: ARIPiprazole 5 MG Tab PO SCH (08:36)
[2022-10-24] MEDS: Meloxicam 7.5 MG Tab PO SCH (08:36)
[2022-10-24] MEDS: Folic Acid 1 MG Tab PO SCH (08:36)
[2022-10-24] MEDS: oxyCODONE 5 MG Tab PO SCH (08:37)
[2022-10-24] MEDS: hydrOXYzine HCl 25 MG Tab PO SCH ×2 (08:37→20:13)
[2022-10-24] MEDS: amLODIPine 10 MG Tab PO SCH (08:38)
[2022-10-24] MEDS: Metoprolol Tartrate 25 MG Tab PO SCH ×2 (08:38→20:12)
[2022-10-24] MEDS: Carboxymethylcellulose Sodium 1% Ophth Gel 15 ML Bottle EYEBOTH SCH ×3 (08:43→20:15)
[2022-10-24] MEDS: Enoxaparin 40 MG/0.4 ML Syringe SUBCUT SCH (11:09)
[2022-10-24] MEDS: Acetaminophen 325 MG Tab PO PRN (20:11)
[2022-10-24] MEDS: Divalproex Sodium Delayed-Release 250 MG Tab.CR PO SCH (20:13)
[2022-10-25] MEDS: Simethicone 80 MG Tab.Chew PO SCH ×2 (08:30→21:01)
[2022-10-25] MEDS: Divalproex Sodium Delayed-Release 500 MG Tab.CR PO SCH ×2 (08:30→21:03)
[2022-10-25] MEDS: Pantoprazole 40 MG Tab.CR PO SCH (08:31)
[2022-10-25] MEDS: Folic Acid 1 MG Tab PO SCH (08:31)
[2022-10-25] MEDS: Baclofen 10 MG Tab PO SCH (08:31)
[2022-10-25] MEDS: levETIRAcetam 500 MG Tab PO SCH ×2 (08:31→21:02)
[2022-10-25] MEDS: amLODIPine 10 MG Tab PO SCH (08:31)
[2022-10-25] MEDS: Venlafaxine 75 MG Cap.ER PO SCH (08:31)
[2022-10-25] MEDS: Metoprolol Tartrate 25 MG Tab PO SCH ×2 (08:31→21:03)
[2022-10-25] MEDS: Sodium Chloride 1 GM Tab PO SCH ×2 (08:32→21:02)
[2022-10-25] MEDS: Lacosamide 100 MG Tab PO SCH ×2 (08:32→21:01)
[2022-10-25] MEDS: atorvaSTATin 20 MG Tab PO SCH (08:32)
[2022-10-25] MEDS: hydrOXYzine HCl 25 MG Tab PO SCH ×2 (08:32→21:01)
[2022-10-25] MEDS: ARIPiprazole 5 MG Tab PO SCH (08:32)
[2022-10-25] MEDS: Meloxicam 7.5 MG Tab PO SCH (08:32)
[2022-10-25] MEDS: oxyCODONE 5 MG Tab PO SCH (08:33)
[2022-10-25] MEDS: Lidocaine 4% 1 each Patch TOP PRN (08:39)
[2022-10-25] MEDS: Carboxymethylcellulose Sodium 1% Ophth Gel 15 ML Bottle EYEBOTH SCH ×3 (08:43→21:04)
[2022-10-25] MEDS: Enoxaparin 40 MG/0.4 ML Syringe SUBCUT SCH (10:46)
[2022-10-25] MEDS: Divalproex Sodium Delayed-Release 250 MG Tab.CR PO SCH (21:07)
[2022-10-26] MEDS: ARIPiprazole 5 MG Tab PO SCH (08:11)
[2022-10-26] MEDS: hydrOXYzine HCl 25 MG Tab PO SCH ×2 (08:12→20:59)
[2022-10-26] MEDS: Divalproex Sodium Delayed-Release 500 MG Tab.CR PO SCH ×2 (08:14→21:15)
[2022-10-26] MEDS: Venlafaxine 75 MG Cap.ER PO SCH (08:15)
[2022-10-26] MEDS: Folic Acid 1 MG Tab PO SCH (08:16)
[2022-10-26] MEDS: levETIRAcetam 500 MG Tab PO SCH ×2 (08:16→20:59)
[2022-10-26] MEDS: Baclofen 10 MG Tab PO SCH (08:17)
[2022-10-26] MEDS: atorvaSTATin 20 MG Tab PO SCH (08:18)
[2022-10-26] MEDS: Metoprolol Tartrate 25 MG Tab PO SCH ×2 (08:19→21:00)
[2022-10-26] MEDS: Meloxicam 7.5 MG Tab PO SCH (08:20)
[2022-10-26] MEDS: oxyCODONE 5 MG Tab PO SCH ×2 (08:21→21:12)
[2022-10-26] MEDS: Pantoprazole 40 MG Tab.CR PO SCH (08:22)
[2022-10-26] MEDS: Simethicone 80 MG Tab.Chew PO SCH ×2 (08:23→20:59)
[2022-10-26] MEDS: Sodium Chloride 1 GM Tab PO SCH ×2 (08:23→20:59)
[2022-10-26] MEDS: Lacosamide 100 MG Tab PO SCH ×2 (08:24→20:59)
[2022-10-26] MEDS: amLODIPine 10 MG Tab PO SCH (08:25)
[2022-10-26] MEDS: Carboxymethylcellulose Sodium 1% Ophth Gel 15 ML Bottle EYEBOTH SCH ×3 (08:37→20:59)
[2022-10-26] MEDS: Lidocaine 4% 1 each Patch TOP PRN (09:47)
[2022-10-26] MEDS: Enoxaparin 40 MG/0.4 ML Syringe SUBCUT SCH (10:20)
[2022-10-26] MEDS: Divalproex Sodium Delayed-Release 250 MG Tab.CR PO SCH (21:00)
[2022-10-26] MEDS: Acetaminophen 325 MG Tab PO PRN (21:11)
[2022-10-26] MEDS: oxyCODONE 5 MG Tab PO PRN (21:14)
[2022-10-27] MEDS: Lidocaine 4% 1 each Patch TOP PRN (08:21)
[2022-10-27] MEDS: levETIRAcetam 500 MG Tab PO SCH ×2 (08:22→20:29)
[2022-10-27] MEDS: Divalproex Sodium Delayed-Release 500 MG Tab.CR PO SCH ×2 (08:22→20:29)
[2022-10-27] MEDS: amLODIPine 10 MG Tab PO SCH (08:22)
[2022-10-27] MEDS: Baclofen 10 MG Tab PO SCH (08:23)
[2022-10-27] MEDS: Metoprolol Tartrate 25 MG Tab PO SCH ×2 (08:23→20:28)
[2022-10-27] MEDS: Lacosamide 100 MG Tab PO SCH ×2 (08:23→20:40)
[2022-10-27] MEDS: Sodium Chloride 1 GM Tab PO SCH ×2 (08:23→20:29)
[2022-10-27] MEDS: Simethicone 80 MG Tab.Chew PO SCH ×2 (08:23→20:28)
[2022-10-27] MEDS: ARIPiprazole 5 MG Tab PO SCH (08:23)
[2022-10-27] MEDS: hydrOXYzine HCl 25 MG Tab PO SCH ×2 (08:23→20:29)
[2022-10-27] MEDS: Venlafaxine 75 MG Cap.ER PO SCH (08:23)
[2022-10-27] MEDS: Meloxicam 7.5 MG Tab PO SCH (08:23)
[2022-10-27] MEDS: Folic Acid 1 MG Tab PO SCH (08:24)
[2022-10-27] MEDS: Pantoprazole 40 MG Tab.CR PO SCH (08:24)
[2022-10-27] MEDS: atorvaSTATin 20 MG Tab PO SCH (08:24)
[2022-10-27] MEDS: oxyCODONE 5 MG Tab PO SCH (08:24)
[2022-10-27] MEDS: Polyethylene Glycol 3350 Powder 17 GM Packet PO PRN (08:34)
[2022-10-27] MEDS: Carboxymethylcellulose Sodium 1% Ophth Gel 15 ML Bottle EYEBOTH SCH ×3 (08:35→20:40)
[2022-10-27] MEDS: Enoxaparin 40 MG/0.4 ML Syringe SUBCUT SCH (11:44)
[2022-10-27] MEDS: Sennosides/Docusate Sodium 50-8.6 MG Tab PO PRN ×2 (14:46→20:40)
[2022-10-27] MEDS: Divalproex Sodium Delayed-Release 250 MG Tab.CR PO SCH (20:29)
[2022-10-27] MEDS: Carboxymethylcellulose Sodium 1% Ophth Gel 15 ML Bottle EYEBOTH PRN (20:30)
[2022-10-27] MEDS: Acetaminophen 325 MG Tab PO PRN (20:38)
[2022-10-27] MEDS: oxyCODONE 5 MG Tab PO PRN (20:39)
[2022-10-28] MEDS: Sodium Chloride 1 GM Tab PO SCH ×2 (08:43→20:08)
[2022-10-28] MEDS: Folic Acid 1 MG Tab PO SCH (08:44)
[2022-10-28] MEDS: Lacosamide 100 MG Tab PO SCH ×2 (08:44→20:08)
[2022-10-28] MEDS: levETIRAcetam 500 MG Tab PO SCH ×2 (08:44→20:09)
[2022-10-28] MEDS: Divalproex Sodium Delayed-Release 500 MG Tab.CR PO SCH ×2 (08:44→20:08)
[2022-10-28] MEDS: Pantoprazole 40 MG Tab.CR PO SCH (08:44)
[2022-10-28] MEDS: Venlafaxine 75 MG Cap.ER PO SCH (08:44)
[2022-10-28] MEDS: amLODIPine 10 MG Tab PO SCH (08:44)
[2022-10-28] MEDS: Simethicone 80 MG Tab.Chew PO SCH ×2 (08:45→20:08)
[2022-10-28] MEDS: oxyCODONE 5 MG Tab PO SCH (08:45)
[2022-10-28] MEDS: Meloxicam 7.5 MG Tab PO SCH (08:45)
[2022-10-28] MEDS: Metoprolol Tartrate 25 MG Tab PO SCH ×2 (08:45→20:08)
[2022-10-28] MEDS: atorvaSTATin 20 MG Tab PO SCH (08:46)
[2022-10-28] MEDS: Baclofen 10 MG Tab PO SCH (08:47)
[2022-10-28] MEDS: hydrOXYzine HCl 25 MG Tab PO SCH ×2 (08:47→20:08)
[2022-10-28] MEDS: Carboxymethylcellulose Sodium 1% Ophth Gel 15 ML Bottle EYEBOTH SCH ×3 (08:47→20:09)
[2022-10-28] MEDS ORDERED: ARIPiprazole 5 MG Tab PO SCH (09:00)
[2022-10-28] MEDS: Enoxaparin 40 MG/0.4 ML Syringe SUBCUT SCH (11:11)
[2022-10-28] MEDS: Divalproex Sodium Delayed-Release 250 MG Tab.CR PO SCH (20:08)
[2022-10-29] MEDS: Venlafaxine 75 MG Cap.ER PO SCH (08:30)
[2022-10-29] MEDS: hydrOXYzine HCl 25 MG Tab PO SCH ×2 (08:30→20:14)
[2022-10-29] MEDS: oxyCODONE 5 MG Tab PO SCH (08:31)
[2022-10-29] MEDS: Meloxicam 7.5 MG Tab PO SCH (08:31)
[2022-10-29] MEDS: Pantoprazole 40 MG Tab.CR PO SCH (08:31)
[2022-10-29] MEDS: Baclofen 10 MG Tab PO SCH (08:31)
[2022-10-29] MEDS: amLODIPine 10 MG Tab PO SCH (08:31)
[2022-10-29] MEDS: levETIRAcetam 500 MG Tab PO SCH ×2 (08:32→20:14)
[2022-10-29] MEDS: Lacosamide 100 MG Tab PO SCH ×2 (08:32→20:14)
[2022-10-29] MEDS: Metoprolol Tartrate 25 MG Tab PO SCH ×2 (08:32→20:11)
[2022-10-29] MEDS: Simethicone 80 MG Tab.Chew PO SCH ×2 (08:32→20:13)
[2022-10-29] MEDS: Folic Acid 1 MG Tab PO SCH (08:32)
[2022-10-29] MEDS: Divalproex Sodium Delayed-Release 500 MG Tab.CR PO SCH ×2 (08:33→20:13)
[2022-10-29] MEDS: ARIPiprazole 10 MG Tab PO SCH (08:33)
[2022-10-29] MEDS: Sodium Chloride 1 GM Tab PO SCH ×2 (08:33→20:13)
[2022-10-29] MEDS: Carboxymethylcellulose Sodium 1% Ophth Gel 15 ML Bottle EYEBOTH SCH ×3 (08:33→20:13)
[2022-10-29] MEDS: atorvaSTATin 20 MG Tab PO SCH (08:33)
[2022-10-29] MEDS: Lidocaine 4% 1 each Patch TOP PRN (09:11)
[2022-10-29] MEDS: Enoxaparin 40 MG/0.4 ML Syringe SUBCUT SCH (11:06)
[2022-10-29] MEDS: Divalproex Sodium Delayed-Release 250 MG Tab.CR PO SCH (20:13)
[2022-10-30] MEDS: Sodium Chloride 1 GM Tab PO SCH ×2 (08:54→20:11)
[2022-10-30] MEDS: Divalproex Sodium Delayed-Release 500 MG Tab.CR PO SCH ×2 (08:55→20:10)
[2022-10-30] MEDS: Baclofen 10 MG Tab PO SCH (08:55)
[2022-10-30] MEDS: Venlafaxine 75 MG Cap.ER PO SCH (08:55)
[2022-10-30] MEDS: amLODIPine 10 MG Tab PO SCH (08:56)
[2022-10-30] MEDS: atorvaSTATin 20 MG Tab PO SCH (08:56)
[2022-10-30] MEDS: levETIRAcetam 500 MG Tab PO SCH ×2 (08:56→20:11)
[2022-10-30] MEDS: Simethicone 80 MG Tab.Chew PO SCH ×2 (08:56→20:10)
[2022-10-30] MEDS: ARIPiprazole 10 MG Tab PO SCH (08:56)
[2022-10-30] MEDS: Folic Acid 1 MG Tab PO SCH (08:56)
[2022-10-30] MEDS: Lacosamide 100 MG Tab PO SCH ×2 (08:56→20:11)
[2022-10-30] MEDS: Pantoprazole 40 MG Tab.CR PO SCH (08:56)
[2022-10-30] MEDS: Meloxicam 7.5 MG Tab PO SCH (08:57)
[2022-10-30] MEDS: Metoprolol Tartrate 25 MG Tab PO SCH ×2 (08:57→20:10)
[2022-10-30] MEDS: oxyCODONE 5 MG Tab PO SCH (08:57)
[2022-10-30] MEDS: hydrOXYzine HCl 25 MG Tab PO SCH ×2 (08:59→20:11)
[2022-10-30] MEDS: Carboxymethylcellulose Sodium 1% Ophth Gel 15 ML Bottle EYEBOTH SCH ×3 (09:00→20:09)
[2022-10-30] MEDS: Lidocaine 4% 1 each Patch TOP PRN (13:22)
[2022-10-30] MEDS: Enoxaparin 40 MG/0.4 ML Syringe SUBCUT SCH (13:22)
[2022-10-30] MEDS: Divalproex Sodium Delayed-Release 250 MG Tab.CR PO SCH (20:11)
[2022-10-31] MEDS: Simethicone 80 MG Tab.Chew PO SCH ×2 (09:27→20:07)
[2022-10-31] MEDS: Divalproex Sodium Delayed-Release 500 MG Tab.CR PO SCH ×2 (09:28→20:07)
[2022-10-31] MEDS: levETIRAcetam 500 MG Tab PO SCH ×2 (09:28→20:07)
[2022-10-31] MEDS: ARIPiprazole 10 MG Tab PO SCH (09:29)
[2022-10-31] MEDS: Meloxicam 7.5 MG Tab PO SCH (09:29)
[2022-10-31] MEDS: Venlafaxine 75 MG Cap.ER PO SCH (09:30)
[2022-10-31] MEDS: Sodium Chloride 1 GM Tab PO SCH ×2 (09:30→20:07)
[2022-10-31] MEDS: oxyCODONE 5 MG Tab PO SCH (09:30)
[2022-10-31] MEDS: Lacosamide 100 MG Tab PO SCH ×2 (09:30→20:07)
[2022-10-31] MEDS: Baclofen 10 MG Tab PO SCH (09:31)
[2022-10-31] MEDS: atorvaSTATin 20 MG Tab PO SCH (09:31)
[2022-10-31] MEDS: Folic Acid 1 MG Tab PO SCH (09:31)
[2022-10-31] MEDS: Pantoprazole 40 MG Tab.CR PO SCH (09:32)
[2022-10-31] MEDS: hydrOXYzine HCl 25 MG Tab PO SCH ×2 (09:32→20:07)
[2022-10-31] MEDS: amLODIPine 10 MG Tab PO SCH (09:38)
[2022-10-31] MEDS: Metoprolol Tartrate 25 MG Tab PO SCH ×2 (09:39→20:06)
[2022-10-31] MEDS: Carboxymethylcellulose Sodium 1% Ophth Gel 15 ML Bottle EYEBOTH SCH ×3 (09:53→20:09)
[2022-10-31] MEDS: Enoxaparin 40 MG/0.4 ML Syringe SUBCUT SCH (10:02)
[2022-10-31] MEDS: Divalproex Sodium Delayed-Release 250 MG Tab.CR PO SCH (20:07)
[2022-11-01] MEDS: Simethicone 80 MG Tab.Chew PO SCH ×2 (08:52→20:03)
[2022-11-01] MEDS: ARIPiprazole 10 MG Tab PO SCH (08:53)
[2022-11-01] MEDS: levETIRAcetam 500 MG Tab PO SCH ×2 (08:53→20:02)
[2022-11-01] MEDS: Lacosamide 100 MG Tab PO SCH ×2 (08:53→20:03)
[2022-11-01] MEDS: Divalproex Sodium Delayed-Release 500 MG Tab.CR PO SCH ×2 (08:53→20:03)
[2022-11-01] MEDS: atorvaSTATin 20 MG Tab PO SCH (08:54)
[2022-11-01] MEDS: Baclofen 10 MG Tab PO SCH (08:55)
[2022-11-01] MEDS: Metoprolol Tartrate 25 MG Tab PO SCH ×2 (08:55→20:02)
[2022-11-01] MEDS: Meloxicam 7.5 MG Tab PO SCH (08:56)
[2022-11-01] MEDS: hydrOXYzine HCl 25 MG Tab PO SCH ×2 (08:56→20:03)
[2022-11-01] MEDS: amLODIPine 10 MG Tab PO SCH (08:56)
[2022-11-01] MEDS: Sodium Chloride 1 GM Tab PO SCH ×2 (08:56→20:03)
[2022-11-01] MEDS: Folic Acid 1 MG Tab PO SCH (08:56)
[2022-11-01] MEDS: Venlafaxine 75 MG Cap.ER PO SCH (08:57)
[2022-11-01] MEDS: Pantoprazole 40 MG Tab.CR PO SCH (08:57)
[2022-11-01] MEDS: oxyCODONE 5 MG Tab PO SCH (08:57)
[2022-11-01] MEDS: Carboxymethylcellulose Sodium 1% Ophth Gel 15 ML Bottle EYEBOTH SCH ×3 (08:58→20:02)
[2022-11-01] MEDS: Lidocaine 4% 1 each Patch TOP PRN (09:09)
[2022-11-01] MEDS: Enoxaparin 40 MG/0.4 ML Syringe SUBCUT SCH (11:08)
[2022-11-01] MEDS: Divalproex Sodium Delayed-Release 250 MG Tab.CR PO SCH (20:03)
[2022-11-02] MEDS: Divalproex Sodium Delayed-Release 500 MG Tab.CR PO SCH ×2 (09:31→20:04)
[2022-11-02] MEDS: Simethicone 80 MG Tab.Chew PO SCH ×2 (09:32→20:03)
[2022-11-02] MEDS: atorvaSTATin 20 MG Tab PO SCH (09:32)
[2022-11-02] MEDS: oxyCODONE 5 MG Tab PO SCH (09:33)
[2022-11-02] MEDS: levETIRAcetam 500 MG Tab PO SCH ×2 (09:34→20:04)
[2022-11-02] MEDS: Baclofen 10 MG Tab PO SCH (09:34)
[2022-11-02] MEDS: Venlafaxine 75 MG Cap.ER PO SCH (09:34)
[2022-11-02] MEDS: Pantoprazole 40 MG Tab.CR PO SCH (09:34)
[2022-11-02] MEDS: hydrOXYzine HCl 25 MG Tab PO SCH ×2 (09:34→20:04)
[2022-11-02] MEDS: Metoprolol Tartrate 25 MG Tab PO SCH ×2 (09:35→20:04)
[2022-11-02] MEDS: Meloxicam 7.5 MG Tab PO SCH (09:35)
[2022-11-02] MEDS: amLODIPine 10 MG Tab PO SCH (09:35)
[2022-11-02] MEDS: Folic Acid 1 MG Tab PO SCH (09:35)
[2022-11-02] MEDS: Lacosamide 100 MG Tab PO SCH ×2 (09:36→20:04)
[2022-11-02] MEDS: Sodium Chloride 1 GM Tab PO SCH ×2 (09:36→20:04)
[2022-11-02] MEDS: ARIPiprazole 10 MG Tab PO SCH (09:36)
[2022-11-02] MEDS: Lidocaine 4% 1 each Patch TOP PRN (09:36)
[2022-11-02] MEDS: Carboxymethylcellulose Sodium 1% Ophth Gel 15 ML Bottle EYEBOTH SCH ×3 (09:37→20:02)
[2022-11-02] MEDS: Enoxaparin 40 MG/0.4 ML Syringe SUBCUT SCH (11:26)
[2022-11-02] MEDS: Divalproex Sodium Delayed-Release 250 MG Tab.CR PO SCH (20:04)
[2022-11-03] MEDS: Simethicone 80 MG Tab.Chew PO SCH ×2 (09:54→20:06)
[2022-11-03] MEDS: Sodium Chloride 1 GM Tab PO SCH ×2 (09:54→20:06)
[2022-11-03] MEDS: levETIRAcetam 500 MG Tab PO SCH ×2 (09:55→20:03)
[2022-11-03] MEDS: Divalproex Sodium Delayed-Release 500 MG Tab.CR PO SCH ×2 (09:55→20:03)
[2022-11-03] MEDS: oxyCODONE 5 MG Tab PO SCH (09:56)
[2022-11-03] MEDS: Pantoprazole 40 MG Tab.CR PO SCH (09:56)
[2022-11-03] MEDS: atorvaSTATin 20 MG Tab PO SCH (09:56)
[2022-11-03] MEDS: Metoprolol Tartrate 25 MG Tab PO SCH ×2 (09:57→20:04)
[2022-11-03] MEDS: Meloxicam 7.5 MG Tab PO SCH (09:57)
[2022-11-03] MEDS: Lacosamide 100 MG Tab PO SCH ×2 (09:58→20:04)
[2022-11-03] MEDS: Folic Acid 1 MG Tab PO SCH (09:58)
[2022-11-03] MEDS: amLODIPine 10 MG Tab PO SCH (09:58)
[2022-11-03] MEDS: ARIPiprazole 10 MG Tab PO SCH (09:58)
[2022-11-03] MEDS: Venlafaxine 75 MG Cap.ER PO SCH (09:58)
[2022-11-03] MEDS: hydrOXYzine HCl 25 MG Tab PO SCH ×2 (09:58→20:06)
[2022-11-03] MEDS: Baclofen 10 MG Tab PO SCH (09:58)
[2022-11-03] MEDS: Carboxymethylcellulose Sodium 1% Ophth Gel 15 ML Bottle EYEBOTH SCH ×3 (09:59→20:06)
[2022-11-03] MEDS: Lidocaine 4% 1 each Patch TOP PRN (09:59)
[2022-11-03] MEDS: Enoxaparin 40 MG/0.4 ML Syringe SUBCUT SCH (09:59)
[2022-11-03] MEDS: Divalproex Sodium Delayed-Release 250 MG Tab.CR PO SCH (20:06)
[2022-11-04] MEDS: Divalproex Sodium Delayed-Release 500 MG Tab.CR PO SCH ×2 (08:21→20:07)
[2022-11-04] MEDS: Baclofen 10 MG Tab PO SCH (08:21)
[2022-11-04] MEDS: Simethicone 80 MG Tab.Chew PO SCH ×2 (08:21→20:06)
[2022-11-04] MEDS: amLODIPine 10 MG Tab PO SCH (08:22)
[2022-11-04] MEDS: Venlafaxine 75 MG Cap.ER PO SCH (08:22)
[2022-11-04] MEDS: hydrOXYzine HCl 25 MG Tab PO SCH ×2 (08:22→20:08)
[2022-11-04] MEDS: atorvaSTATin 20 MG Tab PO SCH (08:23)
[2022-11-04] MEDS: levETIRAcetam 500 MG Tab PO SCH ×2 (08:23→20:08)
[2022-11-04] MEDS: Pantoprazole 40 MG Tab.CR PO SCH (08:23)
[2022-11-04] MEDS: Metoprolol Tartrate 25 MG Tab PO SCH ×2 (08:24→20:08)
[2022-11-04] MEDS: Folic Acid 1 MG Tab PO SCH (08:24)
[2022-11-04] MEDS: Sodium Chloride 1 GM Tab PO SCH ×2 (08:25→20:07)
[2022-11-04] MEDS: ARIPiprazole 10 MG Tab PO SCH (08:25)
[2022-11-04] MEDS: Meloxicam 7.5 MG Tab PO SCH (08:25)
[2022-11-04] MEDS: Lacosamide 100 MG Tab PO SCH ×2 (08:25→20:07)
[2022-11-04] MEDS: oxyCODONE 5 MG Tab PO SCH (08:26)
[2022-11-04] MEDS: Carboxymethylcellulose Sodium 1% Ophth Gel 15 ML Bottle EYEBOTH SCH ×3 (08:30→20:09)
[2022-11-04] MEDS: Enoxaparin 40 MG/0.4 ML Syringe SUBCUT SCH ×2 (15:07→19:40)
[2022-11-04] MEDS: Divalproex Sodium Delayed-Release 250 MG Tab.CR PO SCH (20:07)
[2022-11-04] MEDS: Acetaminophen 325 MG Tab PO PRN (20:08)
[2022-11-05] MEDS: Simethicone 80 MG Tab.Chew PO SCH ×2 (09:13→20:56)
[2022-11-05] MEDS: levETIRAcetam 500 MG Tab PO SCH ×2 (09:13→20:56)
[2022-11-05] MEDS: ARIPiprazole 10 MG Tab PO SCH (09:13)
[2022-11-05] MEDS: atorvaSTATin 20 MG Tab PO SCH (09:13)
[2022-11-05] MEDS: Lacosamide 100 MG Tab PO SCH ×2 (09:13→20:53)
[2022-11-05] MEDS: Divalproex Sodium Delayed-Release 500 MG Tab.CR PO SCH ×2 (09:14→20:55)
[2022-11-05] MEDS: Venlafaxine 75 MG Cap.ER PO SCH (09:15)
[2022-11-05] MEDS: Metoprolol Tartrate 25 MG Tab PO SCH ×2 (09:16→20:53)
[2022-11-05] MEDS: Baclofen 10 MG Tab PO SCH (09:16)
[2022-11-05] MEDS: oxyCODONE 5 MG Tab PO SCH (09:16)
[2022-11-05] MEDS: amLODIPine 10 MG Tab PO SCH (09:16)
[2022-11-05] MEDS: Meloxicam 7.5 MG Tab PO SCH (09:17)
[2022-11-05] MEDS: hydrOXYzine HCl 25 MG Tab PO SCH ×2 (09:17→20:56)
[2022-11-05] MEDS: Pantoprazole 40 MG Tab.CR PO SCH (09:17)
[2022-11-05] MEDS: Sodium Chloride 1 GM Tab PO SCH ×2 (09:17→20:56)
[2022-11-05] MEDS: Folic Acid 1 MG Tab PO SCH (09:17)
[2022-11-05] MEDS: Carboxymethylcellulose Sodium 1% Ophth Gel 15 ML Bottle EYEBOTH SCH ×3 (09:19→20:56)
[2022-11-05] MEDS: Enoxaparin 40 MG/0.4 ML Syringe SUBCUT SCH (16:12)
[2022-11-05] MEDS: Lidocaine 4% 1 each Patch TOP PRN (17:05)
[2022-11-05] MEDS: Divalproex Sodium Delayed-Release 250 MG Tab.CR PO SCH (20:56)
[2022-11-06] MEDS: Metoprolol Tartrate 25 MG Tab PO SCH ×2 (09:23→20:50)
[2022-11-06] MEDS: Pantoprazole 40 MG Tab.CR PO SCH (09:23)
[2022-11-06] MEDS: ARIPiprazole 10 MG Tab PO SCH (09:23)
[2022-11-06] MEDS: Meloxicam 7.5 MG Tab PO SCH (09:24)
[2022-11-06] MEDS: amLODIPine 10 MG Tab PO SCH (09:24)
[2022-11-06] MEDS: Baclofen 10 MG Tab PO SCH (09:24)
[2022-11-06] MEDS: Folic Acid 1 MG Tab PO SCH (09:24)
[2022-11-06] MEDS: oxyCODONE 5 MG Tab PO SCH (09:24)
[2022-11-06] MEDS: Lacosamide 100 MG Tab PO SCH ×2 (09:25→20:50)
[2022-11-06] MEDS: atorvaSTATin 20 MG Tab PO SCH (09:25)
[2022-11-06] MEDS: hydrOXYzine HCl 25 MG Tab PO SCH ×2 (09:25→20:50)
[2022-11-06] MEDS: Venlafaxine 75 MG Cap.ER PO SCH (09:27)
[2022-11-06] MEDS: Sodium Chloride 1 GM Tab PO SCH ×2 (09:27→20:50)
[2022-11-06] MEDS: levETIRAcetam 500 MG Tab PO SCH ×2 (09:27→20:49)
[2022-11-06] MEDS: Simethicone 80 MG Tab.Chew PO SCH ×2 (09:28→20:50)
[2022-11-06] MEDS: Divalproex Sodium Delayed-Release 500 MG Tab.CR PO SCH ×2 (09:28→20:51)
[2022-11-06] MEDS: Carboxymethylcellulose Sodium 1% Ophth Gel 15 ML Bottle EYEBOTH SCH ×3 (09:28→20:57)
[2022-11-06] MEDS: Enoxaparin 40 MG/0.4 ML Syringe SUBCUT SCH (14:57)
[2022-11-06] MEDS: Divalproex Sodium Delayed-Release 250 MG Tab.CR PO SCH (20:50)
[2022-11-07] MEDS: hydrOXYzine HCl 25 MG Tab PO SCH ×2 (10:09→21:07)
[2022-11-07] MEDS: Venlafaxine 75 MG Cap.ER PO SCH (10:10)
[2022-11-07] MEDS: Meloxicam 7.5 MG Tab PO SCH (10:10)
[2022-11-07] MEDS: Baclofen 10 MG Tab PO SCH (10:10)
[2022-11-07] MEDS: levETIRAcetam 500 MG Tab PO SCH ×2 (10:10→21:08)
[2022-11-07] MEDS: Metoprolol Tartrate 25 MG Tab PO SCH ×2 (10:11→21:08)
[2022-11-07] MEDS: Pantoprazole 40 MG Tab.CR PO SCH (10:11)
[2022-11-07] MEDS: Divalproex Sodium Delayed-Release 500 MG Tab.CR PO SCH ×2 (10:12→21:07)
[2022-11-07] MEDS: Simethicone 80 MG Tab.Chew PO SCH ×2 (10:12→21:07)
[2022-11-07] MEDS: amLODIPine 10 MG Tab PO SCH (10:13)
[2022-11-07] MEDS: oxyCODONE 5 MG Tab PO SCH (10:13)
[2022-11-07] MEDS: Lacosamide 100 MG Tab PO SCH ×2 (10:13→21:09)
[2022-11-07] MEDS: Folic Acid 1 MG Tab PO SCH (10:13)
[2022-11-07] MEDS: Sodium Chloride 1 GM Tab PO SCH ×2 (10:13→21:06)
[2022-11-07] MEDS: ARIPiprazole 10 MG Tab PO SCH (10:26)
[2022-11-07] MEDS: Carboxymethylcellulose Sodium 1% Ophth Gel 15 ML Bottle EYEBOTH SCH ×3 (10:27→21:08)
[2022-11-07] MEDS: atorvaSTATin 20 MG Tab PO SCH (10:28)
[2022-11-07] MEDS: Enoxaparin 40 MG/0.4 ML Syringe SUBCUT SCH (16:04)
[2022-11-07] MEDS: Divalproex Sodium Delayed-Release 250 MG Tab.CR PO SCH (21:08)
[2022-11-07] MEDS: Lidocaine 4% 1 each Patch TOP PRN (22:40)
[2022-11-08] MEDS: Simethicone 80 MG Tab.Chew PO SCH ×2 (08:00→20:43)
[2022-11-08] MEDS: Meloxicam 7.5 MG Tab PO SCH (08:01)
[2022-11-08] MEDS: Metoprolol Tartrate 25 MG Tab PO SCH ×2 (08:01→20:46)
[2022-11-08] MEDS: Baclofen 10 MG Tab PO SCH (08:01)
[2022-11-08] MEDS: levETIRAcetam 500 MG Tab PO SCH ×2 (08:01→20:44)
[2022-11-08] MEDS: Sodium Chloride 1 GM Tab PO SCH ×2 (08:02→20:42)
[2022-11-08] MEDS: Lacosamide 100 MG Tab PO SCH ×2 (08:02→20:45)
[2022-11-08] MEDS: ARIPiprazole 10 MG Tab PO SCH (08:02)
[2022-11-08] MEDS: amLODIPine 10 MG Tab PO SCH (08:02)
[2022-11-08] MEDS: Folic Acid 1 MG Tab PO SCH (08:03)
[2022-11-08] MEDS: oxyCODONE 5 MG Tab PO SCH (08:04)
[2022-11-08] MEDS: hydrOXYzine HCl 25 MG Tab PO SCH ×2 (08:05→20:45)
[2022-11-08] MEDS: Venlafaxine 75 MG Cap.ER PO SCH (08:05)
[2022-11-08] MEDS: atorvaSTATin 20 MG Tab PO SCH (08:05)
[2022-11-08] MEDS: Pantoprazole 40 MG Tab.CR PO SCH (08:05)
[2022-11-08] MEDS: Carboxymethylcellulose Sodium 1% Ophth Gel 15 ML Bottle EYEBOTH SCH ×3 (08:05→20:45)
[2022-11-08] MEDS: Divalproex Sodium Delayed-Release 500 MG Tab.CR PO SCH ×2 (08:05→20:42)
[2022-11-08] MEDS: Enoxaparin 40 MG/0.4 ML Syringe SUBCUT SCH (14:51)
[2022-11-08] MEDS: Divalproex Sodium Delayed-Release 250 MG Tab.CR PO SCH (20:45)
[2022-11-09] MEDS: atorvaSTATin 20 MG Tab PO SCH (08:52)
[2022-11-09] MEDS: ARIPiprazole 10 MG Tab PO SCH (08:53)
[2022-11-09] MEDS: Lacosamide 100 MG Tab PO SCH ×2 (08:53→20:53)
[2022-11-09] MEDS: Pantoprazole 40 MG Tab.CR PO SCH (08:54)
[2022-11-09] MEDS: Baclofen 10 MG Tab PO SCH (08:54)
[2022-11-09] MEDS: Folic Acid 1 MG Tab PO SCH (08:54)
[2022-11-09] MEDS: amLODIPine 10 MG Tab PO SCH (08:54)
[2022-11-09] MEDS: Sodium Chloride 1 GM Tab PO SCH ×2 (08:55→20:51)
[2022-11-09] MEDS: Venlafaxine 75 MG Cap.ER PO SCH (08:55)
[2022-11-09] MEDS: Divalproex Sodium Delayed-Release 500 MG Tab.CR PO SCH ×2 (08:56→20:52)
[2022-11-09] MEDS: Metoprolol Tartrate 25 MG Tab PO SCH ×2 (08:57→20:54)
[2022-11-09] MEDS: oxyCODONE 5 MG Tab PO SCH (08:58)
[2022-11-09] MEDS: Meloxicam 7.5 MG Tab PO SCH (08:58)
[2022-11-09] MEDS: hydrOXYzine HCl 25 MG Tab PO SCH ×2 (08:58→20:52)
[2022-11-09] MEDS: Carboxymethylcellulose Sodium 1% Ophth Gel 15 ML Bottle EYEBOTH SCH ×3 (09:00→20:58)
[2022-11-09] MEDS: levETIRAcetam 500 MG Tab PO SCH ×2 (09:00→20:58)
[2022-11-09] MEDS: Simethicone 80 MG Tab.Chew PO SCH ×2 (09:00→20:52)
[2022-11-09] MEDS: Enoxaparin 40 MG/0.4 ML Syringe SUBCUT SCH (14:55)
[2022-11-09] MEDS: Divalproex Sodium Delayed-Release 250 MG Tab.CR PO SCH (20:52)
[2022-11-10] MEDS: ARIPiprazole 10 MG Tab PO SCH (09:18)
[2022-11-10] MEDS: atorvaSTATin 20 MG Tab PO SCH (09:18)
[2022-11-10] MEDS: Divalproex Sodium Delayed-Release 500 MG Tab.CR PO SCH ×2 (09:20→20:55)
[2022-11-10] MEDS: levETIRAcetam 500 MG Tab PO SCH ×2 (09:21→20:56)
[2022-11-10] MEDS: Simethicone 80 MG Tab.Chew PO SCH ×2 (09:21→20:57)
[2022-11-10] MEDS: Metoprolol Tartrate 25 MG Tab PO SCH ×2 (09:22→20:56)
[2022-11-10] MEDS: amLODIPine 10 MG Tab PO SCH (09:23)
[2022-11-10] MEDS: Baclofen 10 MG Tab PO SCH (09:23)
[2022-11-10] MEDS: Folic Acid 1 MG Tab PO SCH (09:23)
[2022-11-10] MEDS: Sodium Chloride 1 GM Tab PO SCH ×2 (09:24→20:57)
[2022-11-10] MEDS: Meloxicam 7.5 MG Tab PO SCH (09:24)
[2022-11-10] MEDS: Venlafaxine 75 MG Cap.ER PO SCH (09:24)
[2022-11-10] MEDS: Pantoprazole 40 MG Tab.CR PO SCH (09:24)
[2022-11-10] MEDS: hydrOXYzine HCl 25 MG Tab PO SCH ×2 (09:24→20:56)
[2022-11-10] MEDS: oxyCODONE 5 MG Tab PO SCH (09:25)
[2022-11-10] MEDS: Lacosamide 100 MG Tab PO SCH ×2 (09:25→20:57)
[2022-11-10] MEDS: Carboxymethylcellulose Sodium 1% Ophth Gel 15 ML Bottle EYEBOTH SCH ×3 (09:32→20:56)
[2022-11-10] MEDS: Enoxaparin 40 MG/0.4 ML Syringe SUBCUT SCH (15:51)
[2022-11-10] MEDS: Divalproex Sodium Delayed-Release 250 MG Tab.CR PO SCH (20:56)
[2022-11-11] MEDS: Pantoprazole 40 MG Tab.CR PO SCH (08:36)
[2022-11-11] MEDS: atorvaSTATin 20 MG Tab PO SCH (08:36)
[2022-11-11] MEDS: hydrOXYzine HCl 25 MG Tab PO SCH ×2 (08:36→20:51)
[2022-11-11] MEDS: Folic Acid 1 MG Tab PO SCH (08:36)
[2022-11-11] MEDS: Simethicone 80 MG Tab.Chew PO SCH ×2 (08:37→20:49)
[2022-11-11] MEDS: Baclofen 10 MG Tab PO SCH (08:37)
[2022-11-11] MEDS: Meloxicam 7.5 MG Tab PO SCH (08:37)
[2022-11-11] MEDS: Lacosamide 100 MG Tab PO SCH ×2 (08:38→20:49)
[2022-11-11] MEDS: amLODIPine 10 MG Tab PO SCH (08:38)
[2022-11-11] MEDS: ARIPiprazole 10 MG Tab PO SCH (08:38)
[2022-11-11] MEDS: Venlafaxine 75 MG Cap.ER PO SCH (08:38)
[2022-11-11] MEDS: Metoprolol Tartrate 25 MG Tab PO SCH ×2 (08:38→20:50)
[2022-11-11] MEDS: levETIRAcetam 500 MG Tab PO SCH ×2 (08:39→20:49)
[2022-11-11] MEDS: Sodium Chloride 1 GM Tab PO SCH ×2 (08:39→20:49)
[2022-11-11] MEDS: oxyCODONE 5 MG Tab PO SCH (08:40)
[2022-11-11] MEDS: Divalproex Sodium Delayed-Release 500 MG Tab.CR PO SCH ×2 (08:40→20:50)
[2022-11-11] MEDS: Carboxymethylcellulose Sodium 1% Ophth Gel 15 ML Bottle EYEBOTH SCH ×3 (08:42→20:51)
[2022-11-11] MEDS: Enoxaparin 40 MG/0.4 ML Syringe SUBCUT SCH (15:01)
[2022-11-11] MEDS: Lidocaine 4% 1 each Patch TOP PRN (18:44)
[2022-11-11] MEDS: Acetaminophen 325 MG Tab PO PRN (20:49)
[2022-11-11] MEDS: Divalproex Sodium Delayed-Release 250 MG Tab.CR PO SCH (20:50)
[2022-11-12] MEDS: oxyCODONE 5 MG Tab PO SCH (08:56)
[2022-11-12] MEDS: Meloxicam 7.5 MG Tab PO SCH (08:56)
[2022-11-12] MEDS: amLODIPine 10 MG Tab PO SCH (08:59)
[2022-11-12] MEDS: Lacosamide 100 MG Tab PO SCH ×2 (08:59→20:00)
[2022-11-12] MEDS: ARIPiprazole 10 MG Tab PO SCH (09:00)
[2022-11-12] MEDS: Metoprolol Tartrate 25 MG Tab PO SCH ×2 (09:00→20:00)
[2022-11-12] MEDS: levETIRAcetam 500 MG Tab PO SCH ×2 (09:00→20:00)
[2022-11-12] MEDS: Pantoprazole 40 MG Tab.CR PO SCH (09:01)
[2022-11-12] MEDS: atorvaSTATin 20 MG Tab PO SCH (09:02)
[2022-11-12] MEDS: Sodium Chloride 1 GM Tab PO SCH ×2 (09:02→20:00)
[2022-11-12] MEDS: Baclofen 10 MG Tab PO SCH (09:02)
[2022-11-12] MEDS: Simethicone 80 MG Tab.Chew PO SCH ×2 (09:02→20:02)
[2022-11-12] MEDS: Venlafaxine 75 MG Cap.ER PO SCH (09:03)
[2022-11-12] MEDS: hydrOXYzine HCl 25 MG Tab PO SCH ×2 (09:03→20:00)
[2022-11-12] MEDS: Divalproex Sodium Delayed-Release 500 MG Tab.CR PO SCH ×2 (09:03→20:02)
[2022-11-12] MEDS: Carboxymethylcellulose Sodium 1% Ophth Gel 15 ML Bottle EYEBOTH SCH ×3 (09:06→20:02)
[2022-11-12] MEDS: Folic Acid 1 MG Tab PO SCH (09:06)
[2022-11-12] MEDS: Enoxaparin 40 MG/0.4 ML Syringe SUBCUT SCH (14:58)
[2022-11-12] MEDS: Divalproex Sodium Delayed-Release 250 MG Tab.CR PO SCH (20:00)
[2022-11-13] MEDS: Divalproex Sodium Delayed-Release 500 MG Tab.CR PO SCH ×2 (09:27→20:01)
[2022-11-13] MEDS: oxyCODONE 5 MG Tab PO SCH (09:28)
[2022-11-13] MEDS: Meloxicam 7.5 MG Tab PO SCH (09:28)
[2022-11-13] MEDS: Metoprolol Tartrate 25 MG Tab PO SCH ×2 (09:28→20:02)
[2022-11-13] MEDS: ARIPiprazole 10 MG Tab PO SCH (09:28)
[2022-11-13] MEDS: Pantoprazole 40 MG Tab.CR PO SCH (09:28)
[2022-11-13] MEDS: amLODIPine 10 MG Tab PO SCH (09:29)
[2022-11-13] MEDS: levETIRAcetam 500 MG Tab PO SCH ×2 (09:29→20:03)
[2022-11-13] MEDS: Venlafaxine 75 MG Cap.ER PO SCH (09:29)
[2022-11-13] MEDS: Folic Acid 1 MG Tab PO SCH (09:29)
[2022-11-13] MEDS: Sodium Chloride 1 GM Tab PO SCH ×2 (09:30→20:01)
[2022-11-13] MEDS: Baclofen 10 MG Tab PO SCH (09:30)
[2022-11-13] MEDS: Lacosamide 100 MG Tab PO SCH ×2 (09:30→20:01)
[2022-11-13] MEDS: hydrOXYzine HCl 25 MG Tab PO SCH ×2 (09:30→20:01)
[2022-11-13] MEDS: atorvaSTATin 20 MG Tab PO SCH (09:30)
[2022-11-13] MEDS: Simethicone 80 MG Tab.Chew PO SCH ×2 (09:31→20:01)
[2022-11-13] MEDS: Carboxymethylcellulose Sodium 1% Ophth Gel 15 ML Bottle EYEBOTH SCH ×3 (09:31→20:03)
[2022-11-13] MEDS: Lidocaine 4% 1 each Patch TOP PRN (11:55)
[2022-11-13] MEDS: Enoxaparin 40 MG/0.4 ML Syringe SUBCUT SCH (15:52)
[2022-11-13] MEDS: Divalproex Sodium Delayed-Release 250 MG Tab.CR PO SCH (20:01)
[2022-11-14] MEDS: levETIRAcetam 500 MG Tab PO SCH ×2 (09:04→20:11)
[2022-11-14] MEDS: Pantoprazole 40 MG Tab.CR PO SCH (09:05)
[2022-11-14] MEDS: ARIPiprazole 10 MG Tab PO SCH (09:05)
[2022-11-14] MEDS: Folic Acid 1 MG Tab PO SCH (09:05)
[2022-11-14] MEDS: Meloxicam 7.5 MG Tab PO SCH (09:05)
[2022-11-14] MEDS: Metoprolol Tartrate 25 MG Tab PO SCH ×2 (09:05→20:10)
[2022-11-14] MEDS: Simethicone 80 MG Tab.Chew PO SCH ×2 (09:05→20:10)
[2022-11-14] MEDS: Sodium Chloride 1 GM Tab PO SCH ×2 (09:06→20:10)
[2022-11-14] MEDS: Divalproex Sodium Delayed-Release 500 MG Tab.CR PO SCH ×2 (09:06→20:11)
[2022-11-14] MEDS: hydrOXYzine HCl 25 MG Tab PO SCH ×2 (09:06→20:10)
[2022-11-14] MEDS: atorvaSTATin 20 MG Tab PO SCH (09:07)
[2022-11-14] MEDS: oxyCODONE 5 MG Tab PO SCH (09:07)
[2022-11-14] MEDS: Carboxymethylcellulose Sodium 1% Ophth Gel 15 ML Bottle EYEBOTH SCH ×3 (09:08→20:12)
[2022-11-14] MEDS: amLODIPine 10 MG Tab PO SCH (09:08)
[2022-11-14] MEDS: Baclofen 10 MG Tab PO SCH (09:08)
[2022-11-14] MEDS: Lacosamide 100 MG Tab PO SCH ×2 (09:32→20:10)
[2022-11-14] MEDS: Venlafaxine 75 MG Cap.ER PO SCH (09:32)
[2022-11-14] MEDS: Enoxaparin 40 MG/0.4 ML Syringe SUBCUT SCH (15:09)
[2022-11-14] MEDS: Divalproex Sodium Delayed-Release 250 MG Tab.CR PO SCH (20:10)
[2022-11-15] MEDS: Metoprolol Tartrate 25 MG Tab PO SCH ×2 (09:38→21:28)
[2022-11-15] MEDS: Pantoprazole 40 MG Tab.CR PO SCH (09:38)
[2022-11-15] MEDS: Lidocaine 4% 1 each Patch TOP PRN (09:38)
[2022-11-15] MEDS: levETIRAcetam 500 MG Tab PO SCH ×2 (09:39→21:27)
[2022-11-15] MEDS: Divalproex Sodium Delayed-Release 500 MG Tab.CR PO SCH ×2 (09:39→21:26)
[2022-11-15] MEDS: atorvaSTATin 20 MG Tab PO SCH (09:40)
[2022-11-15] MEDS: Lacosamide 100 MG Tab PO SCH ×2 (09:40→21:28)
[2022-11-15] MEDS: ARIPiprazole 10 MG Tab PO SCH (09:40)
[2022-11-15] MEDS: Sodium Chloride 1 GM Tab PO SCH ×2 (09:40→21:25)
[2022-11-15] MEDS: Venlafaxine 75 MG Cap.ER PO SCH (09:40)
[2022-11-15] MEDS: amLODIPine 10 MG Tab PO SCH (09:40)
[2022-11-15] MEDS: hydrOXYzine HCl 25 MG Tab PO SCH ×2 (09:40→21:29)
[2022-11-15] MEDS: Folic Acid 1 MG Tab PO SCH (09:41)
[2022-11-15] MEDS: oxyCODONE 5 MG Tab PO SCH (09:41)
[2022-11-15] MEDS: Meloxicam 7.5 MG Tab PO SCH (09:41)
[2022-11-15] MEDS: Simethicone 80 MG Tab.Chew PO SCH ×2 (09:41→21:30)
[2022-11-15] MEDS: Baclofen 10 MG Tab PO SCH (09:41)
[2022-11-15] MEDS: Carboxymethylcellulose Sodium 1% Ophth Gel 15 ML Bottle EYEBOTH SCH ×3 (09:50→21:31)
[2022-11-15] MEDS: Enoxaparin 40 MG/0.4 ML Syringe SUBCUT SCH (15:10)
[2022-11-15] MEDS: Divalproex Sodium Delayed-Release 250 MG Tab.CR PO SCH (21:27)
[2022-11-16] MEDS: Lidocaine 4% 1 each Patch TOP PRN (09:02)
[2022-11-16] MEDS: Sodium Chloride 1 GM Tab PO SCH ×2 (09:03→20:04)
[2022-11-16] MEDS: Metoprolol Tartrate 25 MG Tab PO SCH ×2 (09:03→20:04)
[2022-11-16] MEDS: Folic Acid 1 MG Tab PO SCH (09:03)
[2022-11-16] MEDS: Simethicone 80 MG Tab.Chew PO SCH ×2 (09:03→20:04)
[2022-11-16] MEDS: Divalproex Sodium Delayed-Release 500 MG Tab.CR PO SCH ×2 (09:03→20:04)
[2022-11-16] MEDS: Baclofen 10 MG Tab PO SCH (09:04)
[2022-11-16] MEDS: oxyCODONE 5 MG Tab PO SCH (09:04)
[2022-11-16] MEDS: levETIRAcetam 500 MG Tab PO SCH ×2 (09:04→20:03)
[2022-11-16] MEDS: ARIPiprazole 10 MG Tab PO SCH (09:04)
[2022-11-16] MEDS: Venlafaxine 75 MG Cap.ER PO SCH (09:05)
[2022-11-16] MEDS: Lacosamide 100 MG Tab PO SCH ×2 (09:05→20:03)
[2022-11-16] MEDS: Meloxicam 7.5 MG Tab PO SCH (09:05)
[2022-11-16] MEDS: atorvaSTATin 20 MG Tab PO SCH (09:05)
[2022-11-16] MEDS: amLODIPine 10 MG Tab PO SCH (09:05)
[2022-11-16] MEDS: hydrOXYzine HCl 25 MG Tab PO SCH ×2 (09:05→20:04)
[2022-11-16] MEDS: Pantoprazole 40 MG Tab.CR PO SCH (09:05)
[2022-11-16] MEDS: Carboxymethylcellulose Sodium 1% Ophth Gel 15 ML Bottle EYEBOTH SCH ×3 (09:06→20:07)
[2022-11-16] MEDS: Enoxaparin 40 MG/0.4 ML Syringe SUBCUT SCH (14:15)
[2022-11-16] MEDS: Divalproex Sodium Delayed-Release 250 MG Tab.CR PO SCH (20:04)
[2022-11-17] MEDS: atorvaSTATin 20 MG Tab PO SCH (09:43)
[2022-11-17] MEDS: Lacosamide 100 MG Tab PO SCH ×2 (09:43→20:29)
[2022-11-17] MEDS: Sodium Chloride 1 GM Tab PO SCH ×2 (09:43→20:28)
[2022-11-17] MEDS: Venlafaxine 75 MG Cap.ER PO SCH (09:43)
[2022-11-17] MEDS: oxyCODONE 5 MG Tab PO SCH (09:43)
[2022-11-17] MEDS: Simethicone 80 MG Tab.Chew PO SCH ×2 (09:45→20:28)
[2022-11-17] MEDS: Divalproex Sodium Delayed-Release 500 MG Tab.CR PO SCH ×2 (09:45→20:29)
[2022-11-17] MEDS: hydrOXYzine HCl 25 MG Tab PO SCH ×2 (09:45→20:29)
[2022-11-17] MEDS: Metoprolol Tartrate 25 MG Tab PO SCH ×2 (09:45→20:28)
[2022-11-17] MEDS: Pantoprazole 40 MG Tab.CR PO SCH (09:45)
[2022-11-17] MEDS: ARIPiprazole 10 MG Tab PO SCH (09:46)
[2022-11-17] MEDS: amLODIPine 10 MG Tab PO SCH (09:46)
[2022-11-17] MEDS: Meloxicam 7.5 MG Tab PO SCH (09:46)
[2022-11-17] MEDS: Baclofen 10 MG Tab PO SCH (09:46)
[2022-11-17] MEDS: levETIRAcetam 500 MG Tab PO SCH ×2 (09:46→20:28)
[2022-11-17] MEDS: Folic Acid 1 MG Tab PO SCH (09:46)
[2022-11-17] MEDS: Carboxymethylcellulose Sodium 1% Ophth Gel 15 ML Bottle EYEBOTH SCH ×3 (09:47→20:29)
[2022-11-17] MEDS: Lidocaine 4% 1 each Patch TOP PRN (10:49)
[2022-11-17] MEDS ORDERED: Lidocaine 1% 20 ML MDV INJECT ONE (12:43)
[2022-11-17] MEDS: Enoxaparin 40 MG/0.4 ML Syringe SUBCUT SCH (15:05)
[2022-11-17] MEDS: Acetaminophen 325 MG Tab PO PRN (20:27)
[2022-11-17] MEDS: Divalproex Sodium Delayed-Release 250 MG Tab.CR PO SCH (20:29)
[2022-11-18] MEDS: Simethicone 80 MG Tab.Chew PO SCH ×2 (08:39→20:08)
[2022-11-18] MEDS: ARIPiprazole 10 MG Tab PO SCH (08:39)
[2022-11-18] MEDS: Venlafaxine 75 MG Cap.ER PO SCH (08:40)
[2022-11-18] MEDS: oxyCODONE 5 MG Tab PO SCH (08:40)
[2022-11-18] MEDS: Baclofen 10 MG Tab PO SCH (08:40)
[2022-11-18] MEDS: levETIRAcetam 500 MG Tab PO SCH ×2 (08:40→20:08)
[2022-11-18] MEDS: Divalproex Sodium Delayed-Release 500 MG Tab.CR PO SCH ×2 (08:41→20:10)
[2022-11-18] MEDS: Sodium Chloride 1 GM Tab PO SCH ×2 (08:42→20:08)
[2022-11-18] MEDS: atorvaSTATin 20 MG Tab PO SCH (08:42)
[2022-11-18] MEDS: Lacosamide 100 MG Tab PO SCH ×2 (08:42→20:08)
[2022-11-18] MEDS: Pantoprazole 40 MG Tab.CR PO SCH (08:43)
[2022-11-18] MEDS: hydrOXYzine HCl 25 MG Tab PO SCH ×2 (08:43→20:09)
[2022-11-18] MEDS: Acetaminophen 325 MG Tab PO PRN ×2 (08:43→20:09)
[2022-11-18] MEDS: Folic Acid 1 MG Tab PO SCH (08:43)
[2022-11-18] MEDS: Carboxymethylcellulose Sodium 1% Ophth Gel 15 ML Bottle EYEBOTH SCH ×3 (08:44→20:10)
[2022-11-18] MEDS: amLODIPine 10 MG Tab PO SCH (08:45)
[2022-11-18] MEDS: Metoprolol Tartrate 25 MG Tab PO SCH ×2 (08:45→20:09)
[2022-11-18] MEDS: Meloxicam 7.5 MG Tab PO SCH (08:46)
[2022-11-18] MEDS: Enoxaparin 40 MG/0.4 ML Syringe SUBCUT SCH (15:50)
[2022-11-18] MEDS: Divalproex Sodium Delayed-Release 250 MG Tab.CR PO SCH (20:08)
[2022-11-19] MEDS: Benzocaine/Cetylpyridinium/Menthol Lozenge MUCMEM PRN (04:21)
[2022-11-19] MEDS: levETIRAcetam 500 MG Tab PO SCH ×2 (08:57→20:22)
[2022-11-19] MEDS: Simethicone 80 MG Tab.Chew PO SCH ×2 (08:58→20:17)
[2022-11-19] MEDS: Folic Acid 1 MG Tab PO SCH (08:58)
[2022-11-19] MEDS: Sodium Chloride 1 GM Tab PO SCH ×2 (08:58→20:17)
[2022-11-19] MEDS: Divalproex Sodium Delayed-Release 500 MG Tab.CR PO SCH ×2 (08:58→20:22)
[2022-11-19] MEDS: ARIPiprazole 10 MG Tab PO SCH (08:59)
[2022-11-19] MEDS: oxyCODONE 5 MG Tab PO SCH (08:59)
[2022-11-19] MEDS: Lacosamide 100 MG Tab PO SCH ×2 (08:59→20:23)
[2022-11-19] MEDS: Metoprolol Tartrate 25 MG Tab PO SCH ×2 (08:59→20:17)
[2022-11-19] MEDS: Meloxicam 7.5 MG Tab PO SCH (08:59)
[2022-11-19] MEDS: Baclofen 10 MG Tab PO SCH (08:59)
[2022-11-19] MEDS: hydrOXYzine HCl 25 MG Tab PO SCH ×2 (09:00→20:22)
[2022-11-19] MEDS: Pantoprazole 40 MG Tab.CR PO SCH (09:00)
[2022-11-19] MEDS: amLODIPine 10 MG Tab PO SCH (09:00)
[2022-11-19] MEDS: Venlafaxine 75 MG Cap.ER PO SCH (09:00)
[2022-11-19] MEDS: atorvaSTATin 20 MG Tab PO SCH (09:00)
[2022-11-19] MEDS: Carboxymethylcellulose Sodium 1% Ophth Gel 15 ML Bottle EYEBOTH SCH ×3 (09:01→20:22)
[2022-11-19] MEDS: Lidocaine 4% 1 each Patch TOP PRN (09:01)
[2022-11-19] MEDS: Enoxaparin 40 MG/0.4 ML Syringe SUBCUT SCH (14:35)
[2022-11-19] MEDS: Divalproex Sodium Delayed-Release 250 MG Tab.CR PO SCH (20:22)
[2022-11-20] MEDS: Lidocaine 4% 1 each Patch TOP PRN (08:42)
[2022-11-20] MEDS: Folic Acid 1 MG Tab PO SCH (08:43)
[2022-11-20] MEDS: oxyCODONE 5 MG Tab PO SCH (08:43)
[2022-11-20] MEDS: amLODIPine 10 MG Tab PO SCH (08:43)
[2022-11-20] MEDS: Pantoprazole 40 MG Tab.CR PO SCH (08:43)
[2022-11-20] MEDS: Sodium Chloride 1 GM Tab PO SCH ×2 (08:43→20:07)
[2022-11-20] MEDS: Divalproex Sodium Delayed-Release 500 MG Tab.CR PO SCH ×2 (08:44→20:07)
[2022-11-20] MEDS: atorvaSTATin 20 MG Tab PO SCH (08:44)
[2022-11-20] MEDS: levETIRAcetam 500 MG Tab PO SCH ×2 (08:44→20:08)
[2022-11-20] MEDS: Baclofen 10 MG Tab PO SCH (08:44)
[2022-11-20] MEDS: Lacosamide 100 MG Tab PO SCH ×2 (08:45→20:07)
[2022-11-20] MEDS: Simethicone 80 MG Tab.Chew PO SCH ×2 (08:45→20:08)
[2022-11-20] MEDS: hydrOXYzine HCl 25 MG Tab PO SCH ×2 (08:45→20:08)
[2022-11-20] MEDS: Meloxicam 7.5 MG Tab PO SCH (08:45)
[2022-11-20] MEDS: ARIPiprazole 10 MG Tab PO SCH (08:45)
[2022-11-20] MEDS: Metoprolol Tartrate 25 MG Tab PO SCH ×2 (08:45→20:09)
[2022-11-20] MEDS: Venlafaxine 75 MG Cap.ER PO SCH (08:45)
[2022-11-20] MEDS: Carboxymethylcellulose Sodium 1% Ophth Gel 15 ML Bottle EYEBOTH SCH ×3 (08:46→20:15)
[2022-11-20] MEDS: Enoxaparin 40 MG/0.4 ML Syringe SUBCUT SCH (15:57)
[2022-11-20] MEDS: Divalproex Sodium Delayed-Release 250 MG Tab.CR PO SCH (20:08)
[2022-11-20] MEDS: oxyCODONE 5 MG Tab PO PRN (20:23)
[2022-11-21] MEDS: Lidocaine 4% 1 each Patch TOP PRN (08:38)
[2022-11-21] MEDS: levETIRAcetam 500 MG Tab PO SCH ×2 (08:38→20:09)
[2022-11-21] MEDS: amLODIPine 10 MG Tab PO SCH (08:38)
[2022-11-21] MEDS: Meloxicam 7.5 MG Tab PO SCH (08:38)
[2022-11-21] MEDS: Lacosamide 100 MG Tab PO SCH ×2 (08:39→20:09)
[2022-11-21] MEDS: Simethicone 80 MG Tab.Chew PO SCH ×2 (08:39→20:08)
[2022-11-21] MEDS: Divalproex Sodium Delayed-Release 500 MG Tab.CR PO SCH ×2 (08:39→20:08)
[2022-11-21] MEDS: Folic Acid 1 MG Tab PO SCH (08:39)
[2022-11-21] MEDS: atorvaSTATin 20 MG Tab PO SCH (08:39)
[2022-11-21] MEDS: Venlafaxine 75 MG Cap.ER PO SCH (08:39)
[2022-11-21] MEDS: Baclofen 10 MG Tab PO SCH (08:39)
[2022-11-21] MEDS: Sodium Chloride 1 GM Tab PO SCH ×2 (08:39→20:09)
[2022-11-21] MEDS: ARIPiprazole 10 MG Tab PO SCH (08:39)
[2022-11-21] MEDS: hydrOXYzine HCl 25 MG Tab PO SCH ×2 (08:39→20:07)
[2022-11-21] MEDS: Pantoprazole 40 MG Tab.CR PO SCH (08:40)
[2022-11-21] MEDS: oxyCODONE 5 MG Tab PO SCH (08:40)
[2022-11-21] MEDS: Metoprolol Tartrate 25 MG Tab PO SCH ×2 (08:40→20:09)
[2022-11-21] MEDS: Carboxymethylcellulose Sodium 1% Ophth Gel 15 ML Bottle EYEBOTH SCH ×3 (08:40→20:10)
[2022-11-21] MEDS: Enoxaparin 40 MG/0.4 ML Syringe SUBCUT SCH (15:23)
[2022-11-21] MEDS: Divalproex Sodium Delayed-Release 250 MG Tab.CR PO SCH (20:08)
[2022-11-22] MEDS: Simethicone 80 MG Tab.Chew PO SCH ×2 (10:08→19:59)
[2022-11-22] MEDS: ARIPiprazole 10 MG Tab PO SCH (10:08)
[2022-11-22] MEDS: atorvaSTATin 20 MG Tab PO SCH (10:08)
[2022-11-22] MEDS: Divalproex Sodium Delayed-Release 500 MG Tab.CR PO SCH ×3 (10:09→20:06)
[2022-11-22] MEDS: amLODIPine 10 MG Tab PO SCH (10:09)
[2022-11-22] MEDS: Sodium Chloride 1 GM Tab PO SCH ×3 (10:11→20:06)
[2022-11-22] MEDS: Lacosamide 100 MG Tab PO SCH ×2 (10:12→19:59)
[2022-11-22] MEDS: levETIRAcetam 500 MG Tab PO SCH ×3 (10:12→20:06)
[2022-11-22] MEDS: Folic Acid 1 MG Tab PO SCH (10:12)
[2022-11-22] MEDS: hydrOXYzine HCl 25 MG Tab PO SCH ×2 (10:12→19:59)
[2022-11-22] MEDS: Metoprolol Tartrate 25 MG Tab PO SCH ×2 (10:12→20:01)
[2022-11-22] MEDS: Baclofen 10 MG Tab PO SCH (10:12)
[2022-11-22] MEDS: oxyCODONE 5 MG Tab PO SCH (10:12)
[2022-11-22] MEDS: Meloxicam 7.5 MG Tab PO SCH (10:13)
[2022-11-22] MEDS: Pantoprazole 40 MG Tab.CR PO SCH (10:13)
[2022-11-22] MEDS: Venlafaxine 75 MG Cap.ER PO SCH (10:13)
[2022-11-22] MEDS: Carboxymethylcellulose Sodium 1% Ophth Gel 15 ML Bottle EYEBOTH SCH ×3 (10:14→20:01)
[2022-11-22] MEDS: Lidocaine 4% 1 each Patch TOP PRN (10:32)
[2022-11-22] MEDS: oxyCODONE 5 MG Tab PO PRN ×2 (15:44→23:35)
[2022-11-22] MEDS: Enoxaparin 40 MG/0.4 ML Syringe SUBCUT SCH (15:44)
[2022-11-22] MEDS: Divalproex Sodium Delayed-Release 250 MG Tab.CR PO SCH (19:59)
[2022-11-22] MEDS: Acetaminophen 325 MG Tab PO PRN (19:59)
[2022-11-23] MEDS: Sodium Chloride 1 GM Tab PO SCH ×3 (09:14→20:01)
[2022-11-23] MEDS: Simethicone 80 MG Tab.Chew PO SCH ×3 (09:14→20:01)
[2022-11-23] MEDS: oxyCODONE 5 MG Tab PO SCH (09:15)
[2022-11-23] MEDS: amLODIPine 10 MG Tab PO SCH (09:15)
[2022-11-23] MEDS: Divalproex Sodium Delayed-Release 500 MG Tab.CR PO SCH ×3 (09:17→20:02)
[2022-11-23] MEDS: levETIRAcetam 500 MG Tab PO SCH ×3 (09:18→20:01)
[2022-11-23] MEDS: Venlafaxine 75 MG Cap.ER PO SCH (09:18)
[2022-11-23] MEDS: Baclofen 10 MG Tab PO SCH (09:19)
[2022-11-23] MEDS: hydrOXYzine HCl 25 MG Tab PO SCH ×3 (09:19→20:02)
[2022-11-23] MEDS: Lacosamide 100 MG Tab PO SCH ×3 (09:19→20:01)
[2022-11-23] MEDS: ARIPiprazole 10 MG Tab PO SCH (09:20)
[2022-11-23] MEDS: atorvaSTATin 20 MG Tab PO SCH (09:20)
[2022-11-23] MEDS: Pantoprazole 40 MG Tab.CR PO SCH (09:21)
[2022-11-23] MEDS: Metoprolol Tartrate 25 MG Tab PO SCH ×3 (09:21→20:01)
[2022-11-23] MEDS: Meloxicam 7.5 MG Tab PO SCH (09:22)
[2022-11-23] MEDS ORDERED: Loperamide 2 MG Cap PO PRN (09:22)
[2022-11-23] MEDS: Lidocaine 4% 1 each Patch TOP PRN (09:23)
[2022-11-23] MEDS: Folic Acid 1 MG Tab PO SCH (09:23)
[2022-11-23] MEDS: Mupirocin Oint 22 GM Tube TOP SCH ×3 (15:09→20:02)
[2022-11-23] MEDS: Enoxaparin 40 MG/0.4 ML Syringe SUBCUT SCH (15:09)
[2022-11-23] MEDS: Carboxymethylcellulose Sodium 1% Ophth Gel 15 ML Bottle EYEBOTH SCH ×4 (17:10→20:01)
[2022-11-23] MEDS: oxyCODONE 5 MG Tab PO PRN (17:15)
[2022-11-23] MEDS: Divalproex Sodium Delayed-Release 250 MG Tab.CR PO SCH ×2 (19:56→20:02)
[2022-11-23] MEDS: Acetaminophen 325 MG Tab PO PRN (19:57)
[2022-11-23] MEDS ORDERED: Sennosides 8.6 MG Tab PO PRN (21:00)
[2022-11-24] MEDS: oxyCODONE 5 MG Tab PO SCH (08:00)
[2022-11-24] MEDS: levETIRAcetam 500 MG Tab PO SCH ×2 (08:00→20:51)
[2022-11-24] MEDS: Pantoprazole 40 MG Tab.CR PO SCH (08:00)
[2022-11-24] MEDS: Lacosamide 100 MG Tab PO SCH ×2 (08:00→20:52)
[2022-11-24] MEDS: Folic Acid 1 MG Tab PO SCH (08:00)
[2022-11-24] MEDS: Venlafaxine 75 MG Cap.ER PO SCH (08:01)
[2022-11-24] MEDS: Meloxicam 7.5 MG Tab PO SCH (08:01)
[2022-11-24] MEDS: Baclofen 10 MG Tab PO SCH (08:02)
[2022-11-24] MEDS: amLODIPine 10 MG Tab PO SCH (08:02)
[2022-11-24] MEDS: hydrOXYzine HCl 25 MG Tab PO SCH ×2 (08:02→20:52)
[2022-11-24] MEDS: Metoprolol Tartrate 25 MG Tab PO SCH ×2 (08:03→20:52)
[2022-11-24] MEDS: Sodium Chloride 1 GM Tab PO SCH ×2 (08:03→20:52)
[2022-11-24] MEDS: Carboxymethylcellulose Sodium 1% Ophth Gel 15 ML Bottle EYEBOTH SCH ×3 (08:03→21:10)
[2022-11-24] MEDS: Simethicone 80 MG Tab.Chew PO SCH ×2 (08:03→20:53)
[2022-11-24] MEDS: Mupirocin Oint 22 GM Tube TOP SCH ×3 (08:04→21:10)
[2022-11-24] MEDS: Divalproex Sodium Delayed-Release 500 MG Tab.CR PO SCH ×2 (08:05→20:53)
[2022-11-24] MEDS: ARIPiprazole 5 MG Tab PO SCH (08:21)
[2022-11-24] MEDS: ARIPiprazole 10 MG Tab PO SCH (08:21)
[2022-11-24] MEDS ORDERED: atorvaSTATin 20 MG Tab PO SCH (09:00)
[2022-11-24] MEDS: Enoxaparin 40 MG/0.4 ML Syringe SUBCUT SCH (14:28)
[2022-11-24 18:08] LABS: BASOPHILS ABSOLUTE AUTO 0.01 K/mm3 (0.01-0.08); BASOPHILS PERCENT AUTO 0.2 % (0.1-1.2); EOSINOPHILS ABSOLUTE AUTO 0.22 K/mm3 (0.04-0.54); EOSINOPHILS PERCENT AUTO 3.8 (0.8-7.0); HEMATOCRIT 51.3 % (40.1-51.0); HEMOGLOBIN 16.8 gm/dl (13.7-17.5); IMMATURE GRAN ABSOLUTE AUTO 0.06 K/mm3 (0.00-0.10); LYMPHOCYTES PERCENT AUTO 46.3 % (21.8-53.1); MEAN CORPUSCULAR HEMOGLOBIN 28.9 pg (25.7-32.2); MEAN CORPUSCULAR HGB CONC 32.7 g/dl (32.2-35.5); MEAN CORPUSCULAR VOLUME 88.1 fl (79.0-92.2); MEAN PLATELET VOLUME 10.5 fl (9.4-12.3); MONOCYTES ABSOLUTE AUTO 0.56 K/mm3 (0.30-0.82); MONOCYTES PERCENT AUTO 9.6 % (5.3-12.2); NEUTROPHILS ABSOLUTE AUTO 2.28 K/mm3 (1.78-5.38); NEUTROPHILS PERCENT AUTO 39.1 % (34.0-67.9); PLATELET COUNT,PLT 135 K/mm3 (163-337); RED BLOOD CELL COUNT 5.82 M/mm3 (4.63-6.08); WHITE BLOOD CELL COUNT,WBC 5.83 K/mm3 (4.23-9.07)
[2022-11-24 18:22] LABS: INR 1.02; PROTHROMBIN TIME 10.9 SECONDS (9.7-12.0)
[2022-11-24 18:23] LABS: PTT,PARTIAL THROMBOPLSTIN TIME 27.1 SECONDS (21.7-31.4)
[2022-11-24 18:29] LABS: A/G RATIO 0.8 (1-2); ALBUMIN 3.1 g/dl (3.4-5.0); ANION GAP 10.1 (5-15); BILIRUBIN TOTAL 0.4 mg/dL (0.2-1.0); CALCIUM 8.6 mg/dL (8.5-10.1); CREATININE 0.9 mg/dL (0.7-1.3); EST CRCL DRUG DOSING (CG) 95.35 mL/min; POTASSIUM,K 4.1 mEq/L (3.5-5.1)
[2022-11-24] MEDS ORDERED: Iopamidol 755 Mg/ML 100 ML Bottle IVPUSH ONE (20:10)
[2022-11-24] MEDS ORDERED: Sodium Chloride 0.9% 100 ML IV SCH (20:15)
[2022-11-24] MEDS: Divalproex Sodium Delayed-Release 250 MG Tab.CR PO SCH (20:53)
[2022-11-24] MEDS: oxyCODONE 5 MG Tab PO PRN (20:53)
[2022-11-24] MEDS: Aspirin 81 MG Tab.EC PO SCH (21:09)
[2022-11-25] MEDS: Polyethylene Glycol 3350 Powder 17 GM Packet PO PRN (04:19)
[2022-11-25] MEDS: Sodium Chloride 1 GM Tab PO SCH ×2 (08:09→20:27)
[2022-11-25] MEDS: Meloxicam 7.5 MG Tab PO SCH (08:09)
[2022-11-25] MEDS: Lacosamide 100 MG Tab PO SCH ×2 (08:09→20:27)
[2022-11-25] MEDS: Aspirin 81 MG Tab.EC PO SCH (08:09)
[2022-11-25] MEDS: hydrOXYzine HCl 25 MG Tab PO SCH ×2 (08:10→20:28)
[2022-11-25] MEDS: ARIPiprazole 10 MG Tab PO SCH (08:10)
[2022-11-25] MEDS: Simethicone 80 MG Tab.Chew PO SCH ×2 (08:13→20:28)
[2022-11-25] MEDS: levETIRAcetam 500 MG Tab PO SCH ×2 (08:13→20:30)
[2022-11-25] MEDS: Venlafaxine 75 MG Cap.ER PO SCH (08:13)
[2022-11-25] MEDS: Folic Acid 1 MG Tab PO SCH (08:13)
[2022-11-25] MEDS: Pantoprazole 40 MG Tab.CR PO SCH (08:13)
[2022-11-25] MEDS: Divalproex Sodium Delayed-Release 500 MG Tab.CR PO SCH ×2 (08:13→20:29)
[2022-11-25] MEDS: Baclofen 10 MG Tab PO SCH (08:13)
[2022-11-25] MEDS: oxyCODONE 5 MG Tab PO SCH (08:14)
[2022-11-25] MEDS: Metoprolol Tartrate 25 MG Tab PO SCH ×2 (08:15→20:25)
[2022-11-25] MEDS: atorvaSTATin 20 MG Tab PO SCH (08:15)
[2022-11-25] MEDS: Carboxymethylcellulose Sodium 1% Ophth Gel 15 ML Bottle EYEBOTH SCH ×3 (08:16→20:38)
[2022-11-25] MEDS: ARIPiprazole 5 MG Tab PO SCH (08:16)
[2022-11-25] MEDS: amLODIPine 10 MG Tab PO SCH (08:16)
[2022-11-25] MEDS: Mupirocin Oint 22 GM Tube TOP SCH ×3 (08:17→20:31)
[2022-11-25 08:43] LABS: CHOLESTEROL HDL 33 mg/dL (40-59); CHOLESTEROL LDL DIRECT 86 mg/dL (<100); CHOLESTEROL TOTAL 137 mg/dL (<200); TRIGLYCERIDES 151 mg/dL (<150)
[2022-11-25] MEDS ORDERED: Furosemide 20 MG Tab PO ONE (10:15)
[2022-11-25] MEDS: cefTRIAXone 1 GM in Sodium Chloride 0.9% 100 ML IV SCH (10:37)
[2022-11-25] MEDS: Enoxaparin 40 MG/0.4 ML Syringe SUBCUT SCH (16:05)
[2022-11-25] MEDS: Divalproex Sodium Delayed-Release 250 MG Tab.CR PO SCH (20:30)
[2022-11-25] MEDS: oxyCODONE 5 MG Tab PO PRN (20:40)
[2022-11-26] MEDS: Folic Acid 1 MG Tab PO SCH (08:12)
[2022-11-26] MEDS: levETIRAcetam 500 MG Tab PO SCH ×2 (08:12→20:06)
[2022-11-26] MEDS: Divalproex Sodium Delayed-Release 500 MG Tab.CR PO SCH ×2 (08:12→20:11)
[2022-11-26] MEDS: Pantoprazole 40 MG Tab.CR PO SCH (08:13)
[2022-11-26] MEDS: Meloxicam 7.5 MG Tab PO SCH (08:13)
[2022-11-26] MEDS: Venlafaxine 75 MG Cap.ER PO SCH (08:13)
[2022-11-26] MEDS: amLODIPine 10 MG Tab PO SCH (08:13)
[2022-11-26] MEDS: ARIPiprazole 10 MG Tab PO SCH (08:13)
[2022-11-26] MEDS: atorvaSTATin 20 MG Tab PO SCH (08:13)
[2022-11-26] MEDS: Lacosamide 100 MG Tab PO SCH ×2 (08:13→20:08)
[2022-11-26] MEDS: Sodium Chloride 1 GM Tab PO SCH ×2 (08:14→20:06)
[2022-11-26] MEDS: Simethicone 80 MG Tab.Chew PO SCH ×2 (08:14→20:06)
[2022-11-26] MEDS: Metoprolol Tartrate 25 MG Tab PO SCH ×2 (08:14→20:08)
[2022-11-26] MEDS: oxyCODONE 5 MG Tab PO SCH (08:14)
[2022-11-26] MEDS: hydrOXYzine HCl 25 MG Tab PO SCH ×2 (08:14→20:08)
[2022-11-26] MEDS: Baclofen 10 MG Tab PO SCH (08:14)
[2022-11-26] MEDS: ARIPiprazole 5 MG Tab PO SCH (08:15)
[2022-11-26] MEDS: Carboxymethylcellulose Sodium 1% Ophth Gel 15 ML Bottle EYEBOTH SCH ×3 (08:15→20:09)
[2022-11-26] MEDS: Mupirocin Oint 22 GM Tube TOP SCH ×3 (08:15→20:10)
[2022-11-26] MEDS: cefTRIAXone 1 GM in Sodium Chloride 0.9% 100 ML IV SCH (11:46)
[2022-11-26] MEDS: Enoxaparin 40 MG/0.4 ML Syringe SUBCUT SCH (17:13)
[2022-11-26] MEDS: Acetaminophen 325 MG Tab PO PRN (20:07)
[2022-11-26] MEDS: Divalproex Sodium Delayed-Release 250 MG Tab.CR PO SCH (20:07)
[2022-11-27 05:59] LABS: EOSINOPHILS ABSOLUTE AUTO 0.16 K/mm3 (0.04-0.54); EOSINOPHILS PERCENT AUTO 3.4 (0.8-7.0); HEMATOCRIT 51.6 % (40.1-51.0); HEMOGLOBIN 16.7 gm/dl (13.7-17.5); IMMATURE GRAN ABSOLUTE AUTO 0.02 K/mm3 (0.00-0.10); IMMATURE GRAN PERCENT AUTO 0.4 % (<=1.0); LYMPHOCYTES ABSOLUTE AUTO 1.98 K/mm3 (1.32-3.57); LYMPHOCYTES PERCENT AUTO 42.5 % (21.8-53.1); MEAN CORPUSCULAR HEMOGLOBIN 28.8 pg (25.7-32.2); MEAN CORPUSCULAR HGB CONC 32.4 g/dl (32.2-35.5); MEAN PLATELET VOLUME 10.3 fl (9.4-12.3); MONOCYTES ABSOLUTE AUTO 0.47 K/mm3 (0.30-0.82); MONOCYTES PERCENT AUTO 10.1 % (5.3-12.2); NEUTROPHILS ABSOLUTE AUTO 2.03 K/mm3 (1.78-5.38); NEUTROPHILS PERCENT AUTO 43.6 % (34.0-67.9); PLATELET COUNT,PLT 155 K/mm3 (163-337); WHITE BLOOD CELL COUNT,WBC 4.66 K/mm3 (4.23-9.07)
[2022-11-27 06:16] LABS: ANION GAP 12.1 (5-15); BUN/CREATININE RATIO 24.4 (14-18); CALCIUM 8.9 mg/dL (8.5-10.1); CREATININE 0.9 mg/dL (0.7-1.3); EST CRCL DRUG DOSING (CG) 95.35 mL/min; MAGNESIUM 2.1 mg/dL (1.8-2.4); POTASSIUM,K 4.1 mEq/L (3.5-5.1)
[2022-11-27] MEDS: ARIPiprazole 5 MG Tab PO SCH (09:05)
[2022-11-27] MEDS: Divalproex Sodium Delayed-Release 500 MG Tab.CR PO SCH ×2 (09:05→21:09)
[2022-11-27] MEDS: levETIRAcetam 500 MG Tab PO SCH ×2 (09:05→21:09)
[2022-11-27] MEDS: ARIPiprazole 10 MG Tab PO SCH (09:05)
[2022-11-27] MEDS: oxyCODONE 5 MG Tab PO SCH (09:06)
[2022-11-27] MEDS: hydrOXYzine HCl 25 MG Tab PO SCH ×2 (09:06→21:09)
[2022-11-27] MEDS: Folic Acid 1 MG Tab PO SCH (09:06)
[2022-11-27] MEDS: Venlafaxine 75 MG Cap.ER PO SCH (09:06)
[2022-11-27] MEDS: Simethicone 80 MG Tab.Chew PO SCH ×2 (09:08→21:09)
[2022-11-27] MEDS: Lacosamide 100 MG Tab PO SCH ×2 (09:08→21:09)
[2022-11-27] MEDS: Baclofen 10 MG Tab PO SCH (09:08)
[2022-11-27] MEDS: Pantoprazole 40 MG Tab.CR PO SCH (09:08)
[2022-11-27] MEDS: Mupirocin Oint 22 GM Tube TOP SCH ×3 (09:09→21:10)
[2022-11-27] MEDS: Metoprolol Tartrate 25 MG Tab PO SCH ×2 (09:09→21:07)
[2022-11-27] MEDS: Meloxicam 7.5 MG Tab PO SCH (09:09)
[2022-11-27] MEDS: atorvaSTATin 20 MG Tab PO SCH (09:09)
[2022-11-27] MEDS: Sodium Chloride 1 GM Tab PO SCH ×2 (09:09→21:07)
[2022-11-27] MEDS: Carboxymethylcellulose Sodium 1% Ophth Gel 15 ML Bottle EYEBOTH SCH ×3 (09:10→22:00)
[2022-11-27] MEDS: amLODIPine 10 MG Tab PO SCH (09:10)
[2022-11-27] MEDS: Sennosides/Docusate Sodium 50-8.6 MG Tab PO PRN (10:11)
[2022-11-27] MEDS: cefTRIAXone 1 GM in Sodium Chloride 0.9% 100 ML IV SCH (10:11)
[2022-11-27] MEDS: Lidocaine 4% 1 each Patch TOP PRN (10:25)
[2022-11-27] MEDS: Enoxaparin 40 MG/0.4 ML Syringe SUBCUT SCH (16:25)
[2022-11-27] MEDS: QUEtiapine 100 MG Tab PO SCH (21:07)
[2022-11-27] MEDS: Acetaminophen 325 MG Tab PO PRN (21:09)
[2022-11-28] MEDS: Venlafaxine 37.5 MG Cap.ER PO SCH (10:49)
[2022-11-28] MEDS: Meloxicam 7.5 MG Tab PO SCH (10:49)
[2022-11-28] MEDS: levETIRAcetam 500 MG Tab PO SCH ×2 (10:49→21:48)
[2022-11-28] MEDS: Sodium Chloride 1 GM Tab PO SCH ×2 (10:49→21:47)
[2022-11-28] MEDS: oxyCODONE 5 MG Tab PO SCH (10:49)
[2022-11-28] MEDS: amLODIPine 10 MG Tab PO SCH (10:50)
[2022-11-28] MEDS: Baclofen 10 MG Tab PO SCH (10:50)
[2022-11-28] MEDS: Pantoprazole 40 MG Tab.CR PO SCH (10:50)
[2022-11-28] MEDS: Folic Acid 1 MG Tab PO SCH (10:50)
[2022-11-28] MEDS: Divalproex Sodium Delayed-Release 500 MG Tab.CR PO SCH ×2 (10:50→21:41)
[2022-11-28] MEDS: atorvaSTATin 20 MG Tab PO SCH (10:51)
[2022-11-28] MEDS: Mupirocin Oint 22 GM Tube TOP SCH ×3 (10:51→21:55)
[2022-11-28] MEDS: hydrOXYzine HCl 25 MG Tab PO SCH ×2 (10:51→21:47)
[2022-11-28] MEDS: Lacosamide 100 MG Tab PO SCH ×2 (10:51→21:47)
[2022-11-28] MEDS: Metoprolol Tartrate 25 MG Tab PO SCH ×2 (10:51→21:48)
[2022-11-28] MEDS: Carboxymethylcellulose Sodium 1% Ophth Gel 15 ML Bottle EYEBOTH SCH ×3 (10:52→21:55)
[2022-11-28] MEDS: Simethicone 80 MG Tab.Chew PO SCH ×2 (10:52→21:47)
[2022-11-28] MEDS: cefTRIAXone 1 GM in Sodium Chloride 0.9% 100 ML IV SCH (10:52)
[2022-11-28] MEDS: Azithromycin 500 MG in Sodium Chloride 0.9% 250 ML IV SCH (10:52)
[2022-11-28] MEDS ORDERED: Furosemide 20 MG Tab PO ONE (13:45)
[2022-11-28] MEDS: Enoxaparin 40 MG/0.4 ML Syringe SUBCUT SCH (14:10)
[2022-11-28] MEDS: QUEtiapine 100 MG Tab PO SCH (21:47)
[2022-11-29 06:49] LABS: BUN/CREATININE RATIO 21.3 (14-18); CALCIUM 8.3 mg/dL (8.5-10.1); CREATININE 0.8 mg/dL (0.7-1.3); EST CRCL DRUG DOSING (CG) 107.27 mL/min; MAGNESIUM 1.7 mg/dL (1.8-2.4)
[2022-11-29] MEDS ORDERED: Magnesium Sulfate/Water 2 GM in Premix Bag 1 BAG IV ONE (07:46)
[2022-11-29] MEDS: Metoprolol Tartrate 25 MG Tab PO SCH ×2 (08:34→20:32)
[2022-11-29] MEDS: Lacosamide 100 MG Tab PO SCH ×2 (08:34→20:31)
[2022-11-29] MEDS: Sodium Chloride 1 GM Tab PO SCH ×2 (08:34→20:32)
[2022-11-29] MEDS: amLODIPine 10 MG Tab PO SCH (08:34)
[2022-11-29] MEDS: Folic Acid 1 MG Tab PO SCH (08:34)
[2022-11-29] MEDS: Simethicone 80 MG Tab.Chew PO SCH ×2 (08:35→20:31)
[2022-11-29] MEDS: levETIRAcetam 500 MG Tab PO SCH ×2 (08:35→20:31)
[2022-11-29] MEDS: Venlafaxine 37.5 MG Cap.ER PO SCH (08:35)
[2022-11-29] MEDS: oxyCODONE 5 MG Tab PO SCH (08:35)
[2022-11-29] MEDS: hydrOXYzine HCl 25 MG Tab PO SCH ×2 (08:36→20:31)
[2022-11-29] MEDS: Carboxymethylcellulose Sodium 1% Ophth Gel 15 ML Bottle EYEBOTH SCH ×3 (08:36→20:32)
[2022-11-29] MEDS: Baclofen 10 MG Tab PO SCH (08:36)
[2022-11-29] MEDS: Pantoprazole 40 MG Tab.CR PO SCH (08:36)
[2022-11-29] MEDS: Mupirocin Oint 22 GM Tube TOP SCH ×3 (08:36→20:36)
[2022-11-29] MEDS: atorvaSTATin 20 MG Tab PO SCH (08:36)
[2022-11-29] MEDS: Meloxicam 7.5 MG Tab PO SCH (08:36)
[2022-11-29] MEDS: Divalproex Sodium Delayed-Release 500 MG Tab.CR PO SCH ×2 (08:36→20:32)
[2022-11-29] MEDS: Azithromycin 500 MG in Sodium Chloride 0.9% 250 ML IV SCH (10:01)
[2022-11-29] MEDS: cefTRIAXone 1 GM in Sodium Chloride 0.9% 100 ML IV SCH (11:32)
[2022-11-29] MEDS: Enoxaparin 40 MG/0.4 ML Syringe SUBCUT SCH (14:13)
[2022-11-29] MEDS: Acetaminophen 325 MG Tab PO PRN (20:31)
[2022-11-29] MEDS: QUEtiapine 100 MG Tab PO SCH (20:31)
[2022-11-30] MEDS: Baclofen 10 MG Tab PO SCH (09:09)
[2022-11-30] MEDS: hydrOXYzine HCl 25 MG Tab PO SCH ×2 (09:09→20:33)
[2022-11-30] MEDS: Folic Acid 1 MG Tab PO SCH (09:09)
[2022-11-30] MEDS: Simethicone 80 MG Tab.Chew PO SCH ×2 (09:09→20:33)
[2022-11-30] MEDS: Divalproex Sodium Delayed-Release 500 MG Tab.CR PO SCH ×2 (09:09→20:33)
[2022-11-30] MEDS: Lacosamide 100 MG Tab PO SCH ×2 (09:09→20:32)
[2022-11-30] MEDS: Metoprolol Tartrate 25 MG Tab PO SCH ×2 (09:09→20:33)
[2022-11-30] MEDS: levETIRAcetam 500 MG Tab PO SCH ×2 (09:10→20:33)
[2022-11-30] MEDS: atorvaSTATin 20 MG Tab PO SCH (09:10)
[2022-11-30] MEDS: Venlafaxine 37.5 MG Cap.ER PO SCH (09:10)
[2022-11-30] MEDS: oxyCODONE 5 MG Tab PO SCH (09:10)
[2022-11-30] MEDS: Azithromycin 250 MG Tab PO SCH (09:10)
[2022-11-30] MEDS: Sodium Chloride 1 GM Tab PO SCH ×2 (09:10→20:34)
[2022-11-30] MEDS: Meloxicam 7.5 MG Tab PO SCH (09:10)
[2022-11-30] MEDS: amLODIPine 10 MG Tab PO SCH (09:10)
[2022-11-30] MEDS: Carboxymethylcellulose Sodium 1% Ophth Gel 15 ML Bottle EYEBOTH SCH ×3 (09:11→20:32)
[2022-11-30] MEDS: Pantoprazole 40 MG Tab.CR PO SCH (09:11)
[2022-11-30] MEDS: Mupirocin Oint 22 GM Tube TOP SCH ×2 (09:14→15:03)
[2022-11-30] MEDS: cefTRIAXone 1 GM in Sodium Chloride 0.9% 100 ML IV SCH (12:17)
[2022-11-30] MEDS: Enoxaparin 40 MG/0.4 ML Syringe SUBCUT SCH (15:03)
[2022-11-30] MEDS: QUEtiapine 100 MG Tab PO SCH (20:33)
[2022-12-01] MEDS: Azithromycin 250 MG Tab PO SCH (08:51)
[2022-12-01] MEDS: Metoprolol Tartrate 25 MG Tab PO SCH ×2 (08:52→20:54)
[2022-12-01] MEDS: levETIRAcetam 500 MG Tab PO SCH ×2 (08:52→20:55)
[2022-12-01] MEDS: Venlafaxine 37.5 MG Cap.ER PO SCH (08:52)
[2022-12-01] MEDS: Sodium Chloride 1 GM Tab PO SCH ×2 (08:52→20:55)
[2022-12-01] MEDS: Pantoprazole 40 MG Tab.CR PO SCH (08:53)
[2022-12-01] MEDS: Divalproex Sodium Delayed-Release 500 MG Tab.CR PO SCH ×2 (08:53→20:55)
[2022-12-01] MEDS: Baclofen 10 MG Tab PO SCH (08:53)
[2022-12-01] MEDS: Folic Acid 1 MG Tab PO SCH (08:53)
[2022-12-01] MEDS: amLODIPine 10 MG Tab PO SCH (08:53)
[2022-12-01] MEDS: atorvaSTATin 20 MG Tab PO SCH (08:54)
[2022-12-01] MEDS: hydrOXYzine HCl 25 MG Tab PO SCH ×2 (08:54→20:54)
[2022-12-01] MEDS: Meloxicam 7.5 MG Tab PO SCH (08:54)
[2022-12-01] MEDS: Lacosamide 100 MG Tab PO SCH ×2 (08:54→20:55)
[2022-12-01] MEDS: Simethicone 80 MG Tab.Chew PO SCH ×2 (08:54→20:54)
[2022-12-01] MEDS: oxyCODONE 5 MG Tab PO SCH (08:54)
[2022-12-01] MEDS: Carboxymethylcellulose Sodium 1% Ophth Gel 15 ML Bottle EYEBOTH SCH ×3 (08:55→20:54)
[2022-12-01] MEDS: Enoxaparin 40 MG/0.4 ML Syringe SUBCUT SCH (14:28)
[2022-12-01] MEDS: QUEtiapine 100 MG Tab PO SCH (20:54)
[2022-12-02] MEDS: Pantoprazole 40 MG Tab.CR PO SCH (08:48)
[2022-12-02] MEDS: atorvaSTATin 20 MG Tab PO SCH (08:49)
[2022-12-02] MEDS: Meloxicam 7.5 MG Tab PO SCH (08:49)
[2022-12-02] MEDS: amLODIPine 10 MG Tab PO SCH (08:49)
[2022-12-02] MEDS: levETIRAcetam 500 MG Tab PO SCH ×2 (08:49→20:50)
[2022-12-02] MEDS: Baclofen 10 MG Tab PO SCH (08:49)
[2022-12-02] MEDS: oxyCODONE 5 MG Tab PO SCH (08:50)
[2022-12-02] MEDS: Azithromycin 250 MG Tab PO SCH (08:51)
[2022-12-02] MEDS: Lacosamide 100 MG Tab PO SCH ×2 (08:51→20:50)
[2022-12-02] MEDS: Venlafaxine 37.5 MG Cap.ER PO SCH (08:51)
[2022-12-02] MEDS: Sodium Chloride 1 GM Tab PO SCH ×2 (08:51→20:50)
[2022-12-02] MEDS: Folic Acid 1 MG Tab PO SCH (08:51)
[2022-12-02] MEDS: Simethicone 80 MG Tab.Chew PO SCH ×2 (08:51→20:50)
[2022-12-02] MEDS: hydrOXYzine HCl 25 MG Tab PO SCH ×2 (08:52→20:50)
[2022-12-02] MEDS: Metoprolol Tartrate 25 MG Tab PO SCH ×2 (08:52→20:50)
[2022-12-02] MEDS: Carboxymethylcellulose Sodium 1% Ophth Gel 15 ML Bottle EYEBOTH SCH ×3 (09:13→20:49)
[2022-12-02] MEDS: Divalproex Sodium Delayed-Release 500 MG Tab.CR PO SCH ×2 (10:43→20:50)
[2022-12-02] MEDS: Lidocaine 4% 1 each Patch TOP PRN (10:44)
[2022-12-02] MEDS: Enoxaparin 40 MG/0.4 ML Syringe SUBCUT SCH (15:10)
[2022-12-02] MEDS: QUEtiapine 100 MG Tab PO SCH (20:50)
[2022-12-03] MEDS: levETIRAcetam 500 MG Tab PO SCH ×2 (09:25→20:41)
[2022-12-03] MEDS: Sodium Chloride 1 GM Tab PO SCH ×2 (09:25→20:41)
[2022-12-03] MEDS: Divalproex Sodium Delayed-Release 500 MG Tab.CR PO SCH ×2 (09:25→20:41)
[2022-12-03] MEDS: atorvaSTATin 20 MG Tab PO SCH (09:25)
[2022-12-03] MEDS: hydrOXYzine HCl 25 MG Tab PO SCH ×2 (09:25→20:41)
[2022-12-03] MEDS: Lacosamide 100 MG Tab PO SCH ×2 (09:25→20:41)
[2022-12-03] MEDS: Venlafaxine 37.5 MG Cap.ER PO SCH (09:26)
[2022-12-03] MEDS: Pantoprazole 40 MG Tab.CR PO SCH (09:26)
[2022-12-03] MEDS: amLODIPine 10 MG Tab PO SCH (09:26)
[2022-12-03] MEDS: Simethicone 80 MG Tab.Chew PO SCH ×2 (09:26→20:41)
[2022-12-03] MEDS: Metoprolol Tartrate 25 MG Tab PO SCH ×2 (09:26→20:41)
[2022-12-03] MEDS: Azithromycin 250 MG Tab PO SCH (09:26)
[2022-12-03] MEDS: Meloxicam 7.5 MG Tab PO SCH (09:26)
[2022-12-03] MEDS: Baclofen 10 MG Tab PO SCH (09:26)
[2022-12-03] MEDS: Carboxymethylcellulose Sodium 1% Ophth Gel 15 ML Bottle EYEBOTH SCH ×3 (09:27→21:38)
[2022-12-03] MEDS: Folic Acid 1 MG Tab PO SCH (09:27)
[2022-12-03] MEDS: oxyCODONE 5 MG Tab PO SCH (09:27)
[2022-12-03] MEDS: Enoxaparin 40 MG/0.4 ML Syringe SUBCUT SCH (15:46)
[2022-12-03] MEDS: QUEtiapine 100 MG Tab PO SCH (20:41)
[2022-12-04] MEDS: amLODIPine 10 MG Tab PO SCH (08:27)
[2022-12-04] MEDS: Meloxicam 7.5 MG Tab PO SCH (08:27)
[2022-12-04] MEDS: Venlafaxine 37.5 MG Cap.ER PO SCH (08:28)
[2022-12-04] MEDS: Baclofen 10 MG Tab PO SCH (08:28)
[2022-12-04] MEDS: Lacosamide 100 MG Tab PO SCH ×2 (08:28→21:40)
[2022-12-04] MEDS: Folic Acid 1 MG Tab PO SCH (08:28)
[2022-12-04] MEDS: Divalproex Sodium Delayed-Release 500 MG Tab.CR PO SCH ×2 (08:28→21:41)
[2022-12-04] MEDS: Sodium Chloride 1 GM Tab PO SCH ×2 (08:28→21:41)
[2022-12-04] MEDS: Metoprolol Tartrate 25 MG Tab PO SCH ×2 (08:28→21:41)
[2022-12-04] MEDS: Pantoprazole 40 MG Tab.CR PO SCH (08:28)
[2022-12-04] MEDS: levETIRAcetam 500 MG Tab PO SCH ×2 (08:29→21:41)
[2022-12-04] MEDS: hydrOXYzine HCl 25 MG Tab PO SCH ×2 (08:29→21:42)
[2022-12-04] MEDS: Simethicone 80 MG Tab.Chew PO SCH ×2 (08:29→21:40)
[2022-12-04] MEDS: oxyCODONE 5 MG Tab PO SCH (08:29)
[2022-12-04] MEDS: Carboxymethylcellulose Sodium 1% Ophth Gel 15 ML Bottle EYEBOTH SCH ×3 (08:30→21:42)
[2022-12-04] MEDS: atorvaSTATin 20 MG Tab PO SCH (08:30)
[2022-12-04] MEDS: Enoxaparin 40 MG/0.4 ML Syringe SUBCUT SCH (15:25)
[2022-12-04] MEDS: QUEtiapine 100 MG Tab PO SCH (21:41)
[2022-12-05] MEDS: Simethicone 80 MG Tab.Chew PO SCH ×2 (08:51→20:01)
[2022-12-05] MEDS: oxyCODONE 5 MG Tab PO SCH (08:52)
[2022-12-05] MEDS: amLODIPine 10 MG Tab PO SCH (08:52)
[2022-12-05] MEDS: hydrOXYzine HCl 25 MG Tab PO SCH ×2 (08:52→20:00)
[2022-12-05] MEDS: Pantoprazole 40 MG Tab.CR PO SCH (08:52)
[2022-12-05] MEDS: Sodium Chloride 1 GM Tab PO SCH ×2 (08:52→20:01)
[2022-12-05] MEDS: levETIRAcetam 500 MG Tab PO SCH ×2 (08:52→20:00)
[2022-12-05] MEDS: Divalproex Sodium Delayed-Release 500 MG Tab.CR PO SCH ×2 (08:52→20:00)
[2022-12-05] MEDS: Meloxicam 7.5 MG Tab PO SCH (08:53)
[2022-12-05] MEDS: Metoprolol Tartrate 25 MG Tab PO SCH ×2 (08:53→20:00)
[2022-12-05] MEDS: atorvaSTATin 20 MG Tab PO SCH (08:53)
[2022-12-05] MEDS: Baclofen 10 MG Tab PO SCH (08:53)
[2022-12-05] MEDS: Folic Acid 1 MG Tab PO SCH (08:53)
[2022-12-05] MEDS: Venlafaxine 37.5 MG Cap.ER PO SCH (08:53)
[2022-12-05] MEDS: Carboxymethylcellulose Sodium 1% Ophth Gel 15 ML Bottle EYEBOTH PRN (08:54)
[2022-12-05] MEDS: Carboxymethylcellulose Sodium 1% Ophth Gel 15 ML Bottle EYEBOTH SCH ×3 (09:14→20:01)
[2022-12-05] MEDS: Lacosamide 100 MG Tab PO SCH ×2 (09:14→20:01)
[2022-12-05] MEDS: Enoxaparin 40 MG/0.4 ML Syringe SUBCUT SCH (17:15)
[2022-12-05] MEDS: QUEtiapine 100 MG Tab PO SCH (20:01)
[2022-12-05] MEDS ORDERED: LORazepam 0.5 MG Tab PO PRN (21:00)
[2022-12-06] MEDS: Lidocaine 4% 1 each Patch TOP PRN (10:07)
[2022-12-06] MEDS: Metoprolol Tartrate 25 MG Tab PO SCH ×2 (10:07→22:09)
[2022-12-06] MEDS: Divalproex Sodium Delayed-Release 500 MG Tab.CR PO SCH ×2 (10:08→22:09)
[2022-12-06] MEDS: Sodium Chloride 1 GM Tab PO SCH ×2 (10:08→22:07)
[2022-12-06] MEDS: Folic Acid 1 MG Tab PO SCH (10:08)
[2022-12-06] MEDS: Baclofen 10 MG Tab PO SCH (10:09)
[2022-12-06] MEDS: Pantoprazole 40 MG Tab.CR PO SCH (10:09)
[2022-12-06] MEDS: Lacosamide 100 MG Tab PO SCH ×2 (10:09→22:07)
[2022-12-06] MEDS: levETIRAcetam 500 MG Tab PO SCH ×3 (10:09→22:12)
[2022-12-06] MEDS: Venlafaxine 37.5 MG Cap.ER PO SCH (10:09)
[2022-12-06] MEDS: oxyCODONE 5 MG Tab PO SCH (10:10)
[2022-12-06] MEDS: atorvaSTATin 20 MG Tab PO SCH (10:10)
[2022-12-06] MEDS: Carboxymethylcellulose Sodium 1% Ophth Gel 15 ML Bottle EYEBOTH SCH ×3 (10:11→22:14)
[2022-12-06] MEDS: hydrOXYzine HCl 25 MG Tab PO SCH ×2 (10:11→22:09)
[2022-12-06] MEDS: Meloxicam 7.5 MG Tab PO SCH (10:11)
[2022-12-06] MEDS: amLODIPine 10 MG Tab PO SCH (10:11)
[2022-12-06] MEDS: Simethicone 80 MG Tab.Chew PO SCH ×2 (10:11→22:08)
[2022-12-06] MEDS: Enoxaparin 40 MG/0.4 ML Syringe SUBCUT SCH (14:41)
[2022-12-06] MEDS: QUEtiapine 100 MG Tab PO SCH (22:09)
[2022-12-07] MEDS: levETIRAcetam 500 MG Tab PO SCH ×2 (08:34→20:57)
[2022-12-07] MEDS: Simethicone 80 MG Tab.Chew PO SCH ×2 (08:34→20:58)
[2022-12-07] MEDS: Lacosamide 100 MG Tab PO SCH ×2 (08:35→20:58)
[2022-12-07] MEDS: atorvaSTATin 20 MG Tab PO SCH (08:35)
[2022-12-07] MEDS: Sodium Chloride 1 GM Tab PO SCH ×2 (08:35→20:57)
[2022-12-07] MEDS: Divalproex Sodium Delayed-Release 500 MG Tab.CR PO SCH ×2 (08:36→20:57)
[2022-12-07] MEDS: Venlafaxine 37.5 MG Cap.ER PO SCH (08:36)
[2022-12-07] MEDS: Pantoprazole 40 MG Tab.CR PO SCH (08:36)
[2022-12-07] MEDS: Folic Acid 1 MG Tab PO SCH (08:37)
[2022-12-07] MEDS: Meloxicam 7.5 MG Tab PO SCH (08:37)
[2022-12-07] MEDS: Baclofen 10 MG Tab PO SCH (08:37)
[2022-12-07] MEDS: amLODIPine 10 MG Tab PO SCH (08:37)
[2022-12-07] MEDS: Metoprolol Tartrate 25 MG Tab PO SCH ×2 (08:38→20:57)
[2022-12-07] MEDS: hydrOXYzine HCl 25 MG Tab PO SCH ×2 (08:39→20:58)
[2022-12-07] MEDS: oxyCODONE 5 MG Tab PO SCH (08:39)
[2022-12-07] MEDS: Carboxymethylcellulose Sodium 1% Ophth Gel 15 ML Bottle EYEBOTH SCH ×3 (08:40→21:14)
[2022-12-07] MEDS: Lidocaine 4% 1 each Patch TOP PRN (08:40)
[2022-12-07] MEDS: Enoxaparin 40 MG/0.4 ML Syringe SUBCUT SCH (15:16)
[2022-12-07] MEDS: QUEtiapine 100 MG Tab PO SCH (20:57)
[2022-12-08] MEDS: Simethicone 80 MG Tab.Chew PO SCH ×2 (09:20→20:47)
[2022-12-08] MEDS: oxyCODONE 5 MG Tab PO SCH (09:22)
[2022-12-08] MEDS: hydrOXYzine HCl 25 MG Tab PO SCH ×2 (09:22→20:44)
[2022-12-08] MEDS: atorvaSTATin 20 MG Tab PO SCH (09:22)
[2022-12-08] MEDS: Folic Acid 1 MG Tab PO SCH (09:23)
[2022-12-08] MEDS: Baclofen 10 MG Tab PO SCH (09:23)
[2022-12-08] MEDS: levETIRAcetam 500 MG Tab PO SCH ×2 (09:24→20:45)
[2022-12-08] MEDS: amLODIPine 10 MG Tab PO SCH (09:24)
[2022-12-08] MEDS: Pantoprazole 40 MG Tab.CR PO SCH (09:25)
[2022-12-08] MEDS: Meloxicam 7.5 MG Tab PO SCH (09:25)
[2022-12-08] MEDS: Venlafaxine 37.5 MG Cap.ER PO SCH (09:25)
[2022-12-08] MEDS: Metoprolol Tartrate 25 MG Tab PO SCH ×2 (09:25→20:44)
[2022-12-08] MEDS: Lacosamide 100 MG Tab PO SCH ×2 (09:26→20:44)
[2022-12-08] MEDS: Divalproex Sodium Delayed-Release 500 MG Tab.CR PO SCH ×2 (09:26→20:46)
[2022-12-08] MEDS: Lidocaine 4% 1 each Patch TOP PRN (09:27)
[2022-12-08] MEDS: Carboxymethylcellulose Sodium 1% Ophth Gel 15 ML Bottle EYEBOTH SCH ×3 (09:28→20:46)
[2022-12-08] MEDS: Sodium Chloride 1 GM Tab PO SCH ×2 (09:28→20:43)
[2022-12-08] MEDS: Enoxaparin 40 MG/0.4 ML Syringe SUBCUT SCH (15:37)
[2022-12-08] MEDS: QUEtiapine 100 MG Tab PO SCH (20:47)
[2022-12-09] MEDS: Venlafaxine 37.5 MG Cap.ER PO SCH (09:23)
[2022-12-09] MEDS: Lacosamide 100 MG Tab PO SCH ×2 (09:24→20:24)
[2022-12-09] MEDS: atorvaSTATin 20 MG Tab PO SCH (09:24)
[2022-12-09] MEDS: levETIRAcetam 500 MG Tab PO SCH ×2 (09:25→20:26)
[2022-12-09] MEDS: Metoprolol Tartrate 25 MG Tab PO SCH ×2 (09:26→20:29)
[2022-12-09] MEDS: Folic Acid 1 MG Tab PO SCH (09:26)
[2022-12-09] MEDS: amLODIPine 10 MG Tab PO SCH (09:27)
[2022-12-09] MEDS: hydrOXYzine HCl 25 MG Tab PO SCH ×2 (09:28→20:29)
[2022-12-09] MEDS: oxyCODONE 5 MG Tab PO SCH (09:28)
[2022-12-09] MEDS: Pantoprazole 40 MG Tab.CR PO SCH (09:30)
[2022-12-09] MEDS: Baclofen 10 MG Tab PO SCH (09:30)
[2022-12-09] MEDS: Divalproex Sodium Delayed-Release 500 MG Tab.CR PO SCH ×2 (09:30→20:25)
[2022-12-09] MEDS: Meloxicam 7.5 MG Tab PO SCH (09:30)
[2022-12-09] MEDS: Carboxymethylcellulose Sodium 1% Ophth Gel 15 ML Bottle EYEBOTH SCH ×3 (09:32→20:31)
[2022-12-09] MEDS: Simethicone 80 MG Tab.Chew PO SCH ×2 (09:32→20:27)
[2022-12-09] MEDS: Sodium Chloride 1 GM Tab PO SCH ×2 (09:32→20:24)
[2022-12-09] MEDS: Lidocaine 4% 1 each Patch TOP PRN (09:33)
[2022-12-09] MEDS: Acetaminophen 325 MG Tab PO PRN ×2 (12:22→20:27)
[2022-12-09] MEDS: Enoxaparin 40 MG/0.4 ML Syringe SUBCUT SCH (14:37)
[2022-12-09] MEDS: QUEtiapine 100 MG Tab PO SCH (20:29)
[2022-12-10] MEDS: Simethicone 80 MG Tab.Chew PO SCH ×2 (08:30→21:29)
[2022-12-10] MEDS: Meloxicam 7.5 MG Tab PO SCH (08:31)
[2022-12-10] MEDS: Pantoprazole 40 MG Tab.CR PO SCH (08:32)
[2022-12-10] MEDS: Folic Acid 1 MG Tab PO SCH (08:32)
[2022-12-10] MEDS: amLODIPine 10 MG Tab PO SCH (08:32)
[2022-12-10] MEDS: levETIRAcetam 500 MG Tab PO SCH ×2 (08:33→21:28)
[2022-12-10] MEDS: Metoprolol Tartrate 25 MG Tab PO SCH ×2 (08:33→21:29)
[2022-12-10] MEDS: Divalproex Sodium Delayed-Release 500 MG Tab.CR PO SCH ×2 (08:34→21:28)
[2022-12-10] MEDS: Sodium Chloride 1 GM Tab PO SCH ×2 (08:34→21:30)
[2022-12-10] MEDS: Venlafaxine 37.5 MG Cap.ER PO SCH (08:35)
[2022-12-10] MEDS: Lacosamide 100 MG Tab PO SCH ×2 (08:35→21:29)
[2022-12-10] MEDS: atorvaSTATin 20 MG Tab PO SCH (08:36)
[2022-12-10] MEDS: oxyCODONE 5 MG Tab PO SCH (08:36)
[2022-12-10] MEDS: hydrOXYzine HCl 25 MG Tab PO SCH ×2 (08:38→21:28)
[2022-12-10] MEDS: Carboxymethylcellulose Sodium 1% Ophth Gel 15 ML Bottle EYEBOTH SCH ×3 (08:38→21:33)
[2022-12-10] MEDS: Baclofen 10 MG Tab PO SCH (08:38)
[2022-12-10] MEDS: Enoxaparin 40 MG/0.4 ML Syringe SUBCUT SCH (15:55)
[2022-12-10] MEDS: QUEtiapine 100 MG Tab PO SCH (21:29)
[2022-12-11] MEDS: Lidocaine 4% 1 each Patch TOP PRN (09:40)
[2022-12-11] MEDS: Folic Acid 1 MG Tab PO SCH (09:40)
[2022-12-11] MEDS: levETIRAcetam 500 MG Tab PO SCH ×2 (09:40→20:55)
[2022-12-11] MEDS: Venlafaxine 37.5 MG Cap.ER PO SCH (09:41)
[2022-12-11] MEDS: Baclofen 10 MG Tab PO SCH (09:41)
[2022-12-11] MEDS: oxyCODONE 5 MG Tab PO SCH (09:41)
[2022-12-11] MEDS: Divalproex Sodium Delayed-Release 500 MG Tab.CR PO SCH ×2 (09:42→20:55)
[2022-12-11] MEDS: Metoprolol Tartrate 25 MG Tab PO SCH ×2 (09:42→20:56)
[2022-12-11] MEDS: amLODIPine 10 MG Tab PO SCH (09:42)
[2022-12-11] MEDS: hydrOXYzine HCl 25 MG Tab PO SCH ×2 (09:43→20:55)
[2022-12-11] MEDS: atorvaSTATin 20 MG Tab PO SCH (09:43)
[2022-12-11] MEDS: Sodium Chloride 1 GM Tab PO SCH ×2 (09:43→20:55)
[2022-12-11] MEDS: Simethicone 80 MG Tab.Chew PO SCH ×2 (09:43→20:55)
[2022-12-11] MEDS: Meloxicam 7.5 MG Tab PO SCH (09:43)
[2022-12-11] MEDS: Pantoprazole 40 MG Tab.CR PO SCH (09:44)
[2022-12-11] MEDS: Carboxymethylcellulose Sodium 1% Ophth Gel 15 ML Bottle EYEBOTH SCH ×3 (09:44→20:56)
[2022-12-11] MEDS: Lacosamide 100 MG Tab PO SCH ×2 (09:44→20:56)
[2022-12-11] MEDS: Enoxaparin 40 MG/0.4 ML Syringe SUBCUT SCH (14:53)
[2022-12-11] MEDS: QUEtiapine 100 MG Tab PO SCH (20:56)
[2022-12-12] MEDS: Simethicone 80 MG Tab.Chew PO SCH ×2 (08:45→20:34)
[2022-12-12] MEDS: hydrOXYzine HCl 25 MG Tab PO SCH ×2 (08:46→20:34)
[2022-12-12] MEDS: Lacosamide 100 MG Tab PO SCH ×2 (08:46→20:34)
[2022-12-12] MEDS: Pantoprazole 40 MG Tab.CR PO SCH (08:46)
[2022-12-12] MEDS: Venlafaxine 37.5 MG Cap.ER PO SCH (08:46)
[2022-12-12] MEDS: oxyCODONE 5 MG Tab PO SCH (08:46)
[2022-12-12] MEDS: Folic Acid 1 MG Tab PO SCH (08:47)
[2022-12-12] MEDS: Baclofen 10 MG Tab PO SCH (08:47)
[2022-12-12] MEDS: Sodium Chloride 1 GM Tab PO SCH ×2 (08:47→20:34)
[2022-12-12] MEDS: Divalproex Sodium Delayed-Release 500 MG Tab.CR PO SCH ×2 (08:47→20:34)
[2022-12-12] MEDS: levETIRAcetam 500 MG Tab PO SCH ×2 (08:47→20:34)
[2022-12-12] MEDS: atorvaSTATin 20 MG Tab PO SCH (08:48)
[2022-12-12] MEDS: Metoprolol Tartrate 25 MG Tab PO SCH ×2 (08:48→20:35)
[2022-12-12] MEDS: Carboxymethylcellulose Sodium 1% Ophth Gel 15 ML Bottle EYEBOTH SCH ×3 (08:49→20:44)
[2022-12-12] MEDS: amLODIPine 10 MG Tab PO SCH (08:55)
[2022-12-12] MEDS: Meloxicam 7.5 MG Tab PO SCH (08:56)
[2022-12-12] MEDS: Lidocaine 4% 1 each Patch TOP PRN (08:56)
[2022-12-12] MEDS: Enoxaparin 40 MG/0.4 ML Syringe SUBCUT SCH (15:09)
[2022-12-12] MEDS: QUEtiapine 100 MG Tab PO SCH (20:34)
[2022-12-13 05:49] LABS: BASE EXCESS ARTERIAL 3.9 (-2-2.0); BICARBONATE,ARTERIAL 32.3 meq/L (22.0-26.0); O2 SATURATION ARTERIAL 70.8 % (96.0-97.0); PCO2 ARTERIAL 67.1 mmHg (35.0-45.0)
[2022-12-13] MEDS: Metoprolol Tartrate 25 MG Tab PO SCH ×2 (08:16→21:09)
[2022-12-13] MEDS: Baclofen 10 MG Tab PO SCH (08:17)
[2022-12-13] MEDS: amLODIPine 10 MG Tab PO SCH (08:17)
[2022-12-13] MEDS: oxyCODONE 5 MG Tab PO SCH (08:17)
[2022-12-13] MEDS: Lacosamide 100 MG Tab PO SCH ×2 (08:18→21:10)
[2022-12-13] MEDS: Simethicone 80 MG Tab.Chew PO SCH ×2 (08:18→21:09)
[2022-12-13] MEDS: Divalproex Sodium Delayed-Release 500 MG Tab.CR PO SCH ×2 (08:18→21:09)
[2022-12-13] MEDS: Folic Acid 1 MG Tab PO SCH (08:18)
[2022-12-13] MEDS: Meloxicam 7.5 MG Tab PO SCH (08:18)
[2022-12-13] MEDS: levETIRAcetam 500 MG Tab PO SCH ×2 (08:18→21:10)
[2022-12-13] MEDS: Venlafaxine 37.5 MG Cap.ER PO SCH (08:19)
[2022-12-13] MEDS: Pantoprazole 40 MG Tab.CR PO SCH (08:19)
[2022-12-13] MEDS: hydrOXYzine HCl 25 MG Tab PO SCH ×2 (08:19→21:10)
[2022-12-13] MEDS: atorvaSTATin 20 MG Tab PO SCH (08:20)
[2022-12-13] MEDS: Sodium Chloride 1 GM Tab PO SCH ×2 (08:20→21:10)
[2022-12-13] MEDS: Carboxymethylcellulose Sodium 1% Ophth Gel 15 ML Bottle EYEBOTH SCH ×3 (08:37→21:10)
[2022-12-13] MEDS: Lidocaine 4% 1 each Patch TOP PRN (10:17)
[2022-12-13] MEDS: Enoxaparin 40 MG/0.4 ML Syringe SUBCUT SCH (16:08)
[2022-12-13] MEDS: QUEtiapine 100 MG Tab PO SCH (21:09)
[2022-12-14] MEDS: Venlafaxine 37.5 MG Cap.ER PO SCH (09:40)
[2022-12-14] MEDS: oxyCODONE 5 MG Tab PO SCH (09:40)
[2022-12-14] MEDS: Simethicone 80 MG Tab.Chew PO SCH ×2 (09:40→22:15)
[2022-12-14] MEDS: Baclofen 10 MG Tab PO SCH (09:40)
[2022-12-14] MEDS: Lacosamide 100 MG Tab PO SCH ×2 (09:40→22:15)
[2022-12-14] MEDS: amLODIPine 10 MG Tab PO SCH (09:41)
[2022-12-14] MEDS: Pantoprazole 40 MG Tab.CR PO SCH (09:41)
[2022-12-14] MEDS: Divalproex Sodium Delayed-Release 500 MG Tab.CR PO SCH ×2 (09:41→22:15)
[2022-12-14] MEDS: levETIRAcetam 500 MG Tab PO SCH ×2 (09:41→22:16)
[2022-12-14] MEDS: Sodium Chloride 1 GM Tab PO SCH ×2 (09:43→22:17)
[2022-12-14] MEDS: Metoprolol Tartrate 25 MG Tab PO SCH ×2 (09:43→22:16)
[2022-12-14] MEDS: Folic Acid 1 MG Tab PO SCH (09:43)
[2022-12-14] MEDS: Carboxymethylcellulose Sodium 1% Ophth Gel 15 ML Bottle EYEBOTH SCH ×3 (09:43→22:17)
[2022-12-14] MEDS: atorvaSTATin 20 MG Tab PO SCH (09:43)
[2022-12-14] MEDS: Meloxicam 7.5 MG Tab PO SCH (09:43)
[2022-12-14] MEDS: hydrOXYzine HCl 25 MG Tab PO SCH ×2 (09:43→22:14)
[2022-12-14 10:58] LABS: BASE EXCESS ARTERIAL 3.4 (-2-2.0); BICARBONATE,ARTERIAL 29.8 meq/L (22.0-26.0); O2 SATURATION ARTERIAL 89.5 % (96.0-97.0); PCO2 ARTERIAL 53.6 mmHg (35.0-45.0)
[2022-12-14] MEDS: Lidocaine 4% 1 each Patch TOP PRN (11:36)
[2022-12-14] MEDS: Enoxaparin 40 MG/0.4 ML Syringe SUBCUT SCH (16:42)
[2022-12-14] MEDS: QUEtiapine 100 MG Tab PO SCH (22:17)
[2022-12-15] MEDS: Lacosamide 100 MG Tab PO SCH ×2 (09:37→21:07)
[2022-12-15] MEDS: Metoprolol Tartrate 25 MG Tab PO SCH ×2 (09:38→21:07)
[2022-12-15] MEDS: Meloxicam 7.5 MG Tab PO SCH (09:38)
[2022-12-15] MEDS: Simethicone 80 MG Tab.Chew PO SCH ×2 (09:38→21:06)
[2022-12-15] MEDS: Venlafaxine 37.5 MG Cap.ER PO SCH (09:38)
[2022-12-15] MEDS: Folic Acid 1 MG Tab PO SCH (09:38)
[2022-12-15] MEDS: Divalproex Sodium Delayed-Release 500 MG Tab.CR PO SCH ×2 (09:38→21:06)
[2022-12-15] MEDS: Sodium Chloride 1 GM Tab PO SCH ×2 (09:39→21:05)
[2022-12-15] MEDS: atorvaSTATin 20 MG Tab PO SCH (09:39)
[2022-12-15] MEDS: oxyCODONE 5 MG Tab PO SCH (09:39)
[2022-12-15] MEDS: amLODIPine 10 MG Tab PO SCH (09:39)
[2022-12-15] MEDS: Baclofen 10 MG Tab PO SCH (09:39)
[2022-12-15] MEDS: Carboxymethylcellulose Sodium 1% Ophth Gel 15 ML Bottle EYEBOTH SCH ×3 (09:40→21:05)
[2022-12-15] MEDS: levETIRAcetam 500 MG Tab PO SCH ×2 (09:40→21:07)
[2022-12-15] MEDS: Pantoprazole 40 MG Tab.CR PO SCH (09:40)
[2022-12-15] MEDS: hydrOXYzine HCl 25 MG Tab PO SCH ×2 (09:40→21:08)
[2022-12-15] MEDS: Albuterol/Ipratropium 3.0-0.5 MG/3 ML Neb Soln NEB PRN ×2 (10:45→15:15)
[2022-12-15] MEDS: Lidocaine 4% 1 each Patch TOP PRN (13:04)
[2022-12-15] MEDS: Enoxaparin 40 MG/0.4 ML Syringe SUBCUT SCH (15:46)
[2022-12-15] MEDS: QUEtiapine 100 MG Tab PO SCH (21:08)
[2022-12-16] MEDS: Simethicone 80 MG Tab.Chew PO SCH ×2 (08:54→20:32)
[2022-12-16] MEDS: Divalproex Sodium Delayed-Release 500 MG Tab.CR PO SCH ×2 (08:56→20:32)
[2022-12-16] MEDS: Sodium Chloride 1 GM Tab PO SCH ×2 (08:56→20:32)
[2022-12-16] MEDS: levETIRAcetam 500 MG Tab PO SCH ×2 (08:57→20:32)
[2022-12-16] MEDS: amLODIPine 10 MG Tab PO SCH (08:57)
[2022-12-16] MEDS: Venlafaxine 37.5 MG Cap.ER PO SCH (08:57)
[2022-12-16] MEDS: Baclofen 10 MG Tab PO SCH (08:58)
[2022-12-16] MEDS: Pantoprazole 40 MG Tab.CR PO SCH (08:58)
[2022-12-16] MEDS: Metoprolol Tartrate 25 MG Tab PO SCH ×2 (08:58→20:31)
[2022-12-16] MEDS: Lacosamide 100 MG Tab PO SCH ×2 (08:59→20:31)
[2022-12-16] MEDS: Folic Acid 1 MG Tab PO SCH (08:59)
[2022-12-16] MEDS: atorvaSTATin 20 MG Tab PO SCH (08:59)
[2022-12-16] MEDS: hydrOXYzine HCl 25 MG Tab PO SCH ×2 (08:59→20:32)
[2022-12-16] MEDS: oxyCODONE 5 MG Tab PO SCH (08:59)
[2022-12-16] MEDS: Meloxicam 7.5 MG Tab PO SCH (08:59)
[2022-12-16] MEDS: Carboxymethylcellulose Sodium 1% Ophth Gel 15 ML Bottle EYEBOTH SCH ×3 (09:00→20:32)
[2022-12-16] MEDS: Acetaminophen 325 MG Tab PO PRN (10:16)
[2022-12-16] MEDS: Enoxaparin 40 MG/0.4 ML Syringe SUBCUT SCH (15:09)
[2022-12-16] MEDS: QUEtiapine 100 MG Tab PO SCH (20:32)
[2022-12-17] MEDS: Divalproex Sodium Delayed-Release 500 MG Tab.CR PO SCH ×2 (09:42→20:28)
[2022-12-17] MEDS: Metoprolol Tartrate 25 MG Tab PO SCH ×2 (09:42→20:29)
[2022-12-17] MEDS: amLODIPine 10 MG Tab PO SCH (09:44)
[2022-12-17] MEDS: Baclofen 10 MG Tab PO SCH (09:44)
[2022-12-17] MEDS: levETIRAcetam 500 MG Tab PO SCH ×2 (09:45→20:34)
[2022-12-17] MEDS: Folic Acid 1 MG Tab PO SCH (09:45)
[2022-12-17] MEDS: atorvaSTATin 20 MG Tab PO SCH (09:45)
[2022-12-17] MEDS: Sodium Chloride 1 GM Tab PO SCH ×2 (09:45→20:32)
[2022-12-17] MEDS: oxyCODONE 5 MG Tab PO SCH (09:45)
[2022-12-17] MEDS: Simethicone 80 MG Tab.Chew PO SCH ×2 (09:46→20:31)
[2022-12-17] MEDS: Venlafaxine 37.5 MG Cap.ER PO SCH (09:46)
[2022-12-17] MEDS: Lacosamide 100 MG Tab PO SCH ×2 (09:46→20:32)
[2022-12-17] MEDS: Meloxicam 7.5 MG Tab PO SCH (09:46)
[2022-12-17] MEDS: hydrOXYzine HCl 25 MG Tab PO SCH ×2 (09:46→20:25)
[2022-12-17] MEDS: Pantoprazole 40 MG Tab.CR PO SCH (09:46)
[2022-12-17] MEDS: Carboxymethylcellulose Sodium 1% Ophth Gel 15 ML Bottle EYEBOTH SCH ×3 (10:05→20:30)
[2022-12-17] MEDS: Enoxaparin 40 MG/0.4 ML Syringe SUBCUT SCH (15:24)
[2022-12-17] MEDS: QUEtiapine 100 MG Tab PO SCH (20:31)
[2022-12-18] MEDS: Carboxymethylcellulose Sodium 1% Ophth Gel 15 ML Bottle EYEBOTH SCH ×3 (09:44→20:05)
[2022-12-18] MEDS: Sodium Chloride 1 GM Tab PO SCH ×2 (09:44→20:04)
[2022-12-18] MEDS: Venlafaxine 37.5 MG Cap.ER PO SCH (09:44)
[2022-12-18] MEDS: Simethicone 80 MG Tab.Chew PO SCH ×2 (09:45→20:04)
[2022-12-18] MEDS: levETIRAcetam 500 MG Tab PO SCH ×2 (09:45→20:04)
[2022-12-18] MEDS: Pantoprazole 40 MG Tab.CR PO SCH (09:45)
[2022-12-18] MEDS: Folic Acid 1 MG Tab PO SCH (09:46)
[2022-12-18] MEDS: Divalproex Sodium Delayed-Release 500 MG Tab.CR PO SCH ×2 (09:46→20:04)
[2022-12-18] MEDS: oxyCODONE 5 MG Tab PO SCH (09:47)
[2022-12-18] MEDS: atorvaSTATin 20 MG Tab PO SCH (09:47)
[2022-12-18] MEDS: Lacosamide 100 MG Tab PO SCH ×2 (09:47→20:05)
[2022-12-18] MEDS: Meloxicam 7.5 MG Tab PO SCH (09:47)
[2022-12-18] MEDS: Lidocaine 4% 1 each Patch TOP PRN (09:48)
[2022-12-18] MEDS: Baclofen 10 MG Tab PO SCH (09:48)
[2022-12-18] MEDS: Metoprolol Tartrate 25 MG Tab PO SCH ×2 (09:49→20:05)
[2022-12-18] MEDS: amLODIPine 10 MG Tab PO SCH (09:56)
[2022-12-18] MEDS: hydrOXYzine HCl 25 MG Tab PO SCH ×2 (09:56→20:04)
[2022-12-18] MEDS: Enoxaparin 40 MG/0.4 ML Syringe SUBCUT SCH (16:19)
[2022-12-18] MEDS: QUEtiapine 100 MG Tab PO SCH (20:05)
[2022-12-19] MEDS: Divalproex Sodium Delayed-Release 500 MG Tab.CR PO SCH ×3 (09:40→21:16)
[2022-12-19] MEDS: Sodium Chloride 1 GM Tab PO SCH ×3 (09:40→21:17)
[2022-12-19] MEDS: Baclofen 10 MG Tab PO SCH (09:40)
[2022-12-19] MEDS: oxyCODONE 5 MG Tab PO SCH (09:40)
[2022-12-19] MEDS: Venlafaxine 37.5 MG Cap.ER PO SCH (09:41)
[2022-12-19] MEDS: Folic Acid 1 MG Tab PO SCH (09:41)
[2022-12-19] MEDS: Pantoprazole 40 MG Tab.CR PO SCH (09:41)
[2022-12-19] MEDS: Metoprolol Tartrate 25 MG Tab PO SCH ×3 (09:41→21:16)
[2022-12-19] MEDS: Simethicone 80 MG Tab.Chew PO SCH ×3 (09:42→21:17)
[2022-12-19] MEDS: atorvaSTATin 20 MG Tab PO SCH (09:42)
[2022-12-19] MEDS: hydrOXYzine HCl 25 MG Tab PO SCH ×3 (09:43→21:16)
[2022-12-19] MEDS: Lacosamide 100 MG Tab PO SCH ×3 (09:43→21:17)
[2022-12-19] MEDS: Meloxicam 7.5 MG Tab PO SCH (09:43)
[2022-12-19] MEDS: Carboxymethylcellulose Sodium 1% Ophth Gel 15 ML Bottle EYEBOTH SCH ×3 (09:43→22:07)
[2022-12-19] MEDS: levETIRAcetam 500 MG Tab PO SCH ×3 (09:43→21:16)
[2022-12-19] MEDS: Lidocaine 4% 1 each Patch TOP PRN (09:44)
[2022-12-19] MEDS: amLODIPine 10 MG Tab PO SCH (09:56)
[2022-12-19] MEDS: Acetaminophen 325 MG Tab PO PRN ×2 (13:37→19:51)
[2022-12-19] MEDS: Enoxaparin 40 MG/0.4 ML Syringe SUBCUT SCH (15:05)
[2022-12-19] MEDS: QUEtiapine 100 MG Tab PO SCH ×2 (19:52→21:17)
[2022-12-19] MEDS: Carboxymethylcellulose Sodium 1% Ophth Gel 15 ML Bottle EYEBOTH PRN (19:54)
[2022-12-20] MEDS: Divalproex Sodium Delayed-Release 500 MG Tab.CR PO SCH ×2 (09:23→21:21)
[2022-12-20] MEDS: Carboxymethylcellulose Sodium 1% Ophth Gel 15 ML Bottle EYEBOTH SCH ×3 (09:24→21:22)
[2022-12-20] MEDS: atorvaSTATin 20 MG Tab PO SCH (09:24)
[2022-12-20] MEDS: amLODIPine 10 MG Tab PO SCH (09:24)
[2022-12-20] MEDS: levETIRAcetam 500 MG Tab PO SCH ×2 (09:25→21:21)
[2022-12-20] MEDS: Lacosamide 100 MG Tab PO SCH ×2 (09:25→21:21)
[2022-12-20] MEDS: Folic Acid 1 MG Tab PO SCH (09:25)
[2022-12-20] MEDS: Simethicone 80 MG Tab.Chew PO SCH ×2 (09:25→21:21)
[2022-12-20] MEDS: Sodium Chloride 1 GM Tab PO SCH ×2 (09:25→21:21)
[2022-12-20] MEDS: Venlafaxine 37.5 MG Cap.ER PO SCH (09:25)
[2022-12-20] MEDS: Pantoprazole 40 MG Tab.CR PO SCH (09:25)
[2022-12-20] MEDS: hydrOXYzine HCl 25 MG Tab PO SCH ×2 (09:25→21:21)
[2022-12-20] MEDS: Metoprolol Tartrate 25 MG Tab PO SCH ×2 (09:26→21:21)
[2022-12-20] MEDS: Baclofen 10 MG Tab PO SCH (09:26)
[2022-12-20] MEDS: Meloxicam 7.5 MG Tab PO SCH (09:26)
[2022-12-20] MEDS: Lidocaine 4% 1 each Patch TOP PRN (10:43)
[2022-12-20] MEDS: Enoxaparin 40 MG/0.4 ML Syringe SUBCUT SCH (18:24)
[2022-12-20] MEDS: QUEtiapine 100 MG Tab PO SCH (21:21)
[2022-12-21] MEDS: Lidocaine 4% 1 each Patch TOP PRN (08:26)
[2022-12-21] MEDS: amLODIPine 10 MG Tab PO SCH (08:27)
[2022-12-21] MEDS: Metoprolol Tartrate 25 MG Tab PO SCH ×2 (08:29→20:02)
[2022-12-21] MEDS: Pantoprazole 40 MG Tab.CR PO SCH (08:30)
[2022-12-21] MEDS: oxyCODONE 5 MG Tab PO SCH (08:31)
[2022-12-21] MEDS: Sodium Chloride 1 GM Tab PO SCH ×2 (08:31→20:02)
[2022-12-21] MEDS: Lacosamide 100 MG Tab PO SCH ×2 (08:31→20:02)
[2022-12-21] MEDS: Simethicone 80 MG Tab.Chew PO SCH ×2 (08:32→20:01)
[2022-12-21] MEDS: Meloxicam 7.5 MG Tab PO SCH (08:32)
[2022-12-21] MEDS: levETIRAcetam 500 MG Tab PO SCH ×2 (08:32→20:01)
[2022-12-21] MEDS: Divalproex Sodium Delayed-Release 500 MG Tab.CR PO SCH ×2 (08:32→20:01)
[2022-12-21] MEDS: Venlafaxine 37.5 MG Cap.ER PO SCH (08:33)
[2022-12-21] MEDS: atorvaSTATin 20 MG Tab PO SCH (08:33)
[2022-12-21] MEDS: Folic Acid 1 MG Tab PO SCH (08:33)
[2022-12-21] MEDS: hydrOXYzine HCl 25 MG Tab PO SCH ×2 (08:33→20:01)
[2022-12-21] MEDS: Baclofen 10 MG Tab PO SCH (08:35)
[2022-12-21] MEDS: Carboxymethylcellulose Sodium 1% Ophth Gel 15 ML Bottle EYEBOTH SCH ×3 (08:40→20:13)
[2022-12-21] MEDS: Polyethylene Glycol 3350 Powder 17 GM Packet PO PRN (15:04)
[2022-12-21] MEDS: Enoxaparin 40 MG/0.4 ML Syringe SUBCUT SCH (15:04)
[2022-12-21] MEDS: QUEtiapine 100 MG Tab PO SCH (20:01)
[2022-12-22] MEDS: Sodium Chloride 1 GM Tab PO SCH ×2 (10:06→20:40)
[2022-12-22] MEDS: levETIRAcetam 500 MG Tab PO SCH ×2 (10:06→20:40)
[2022-12-22] MEDS: Divalproex Sodium Delayed-Release 500 MG Tab.CR PO SCH ×2 (10:06→20:40)
[2022-12-22] MEDS: atorvaSTATin 20 MG Tab PO SCH (10:06)
[2022-12-22] MEDS: oxyCODONE 5 MG Tab PO SCH (10:07)
[2022-12-22] MEDS: Lacosamide 100 MG Tab PO SCH ×2 (10:07→20:40)
[2022-12-22] MEDS: Venlafaxine 37.5 MG Cap.ER PO SCH (10:08)
[2022-12-22] MEDS: Meloxicam 7.5 MG Tab PO SCH (10:08)
[2022-12-22] MEDS: Folic Acid 1 MG Tab PO SCH (10:08)
[2022-12-22] MEDS: Baclofen 10 MG Tab PO SCH (10:09)
[2022-12-22] MEDS: amLODIPine 10 MG Tab PO SCH (10:09)
[2022-12-22] MEDS: Simethicone 80 MG Tab.Chew PO SCH ×2 (10:10→20:41)
[2022-12-22] MEDS: hydrOXYzine HCl 25 MG Tab PO SCH ×2 (10:10→20:41)
[2022-12-22] MEDS: Lidocaine 4% 1 each Patch TOP PRN (10:11)
[2022-12-22] MEDS: Carboxymethylcellulose Sodium 1% Ophth Gel 15 ML Bottle EYEBOTH SCH ×3 (10:11→20:41)
[2022-12-22] MEDS: Metoprolol Tartrate 25 MG Tab PO SCH ×2 (10:11→20:41)
[2022-12-22] MEDS: Pantoprazole 40 MG Tab.CR PO SCH (10:12)
[2022-12-22] MEDS: Enoxaparin 40 MG/0.4 ML Syringe SUBCUT SCH (14:30)
[2022-12-22] MEDS: Acetaminophen 325 MG Tab PO PRN (15:08)
[2022-12-22] MEDS: Mupirocin Oint 22 GM Tube TOP SCH ×2 (15:09→20:41)
[2022-12-22] MEDS: QUEtiapine 100 MG Tab PO SCH (20:40)
[2022-12-23] MEDS: levETIRAcetam 500 MG Tab PO SCH ×4 (09:04→20:03)
[2022-12-23] MEDS: Divalproex Sodium Delayed-Release 500 MG Tab.CR PO SCH ×4 (09:04→20:03)
[2022-12-23] MEDS: atorvaSTATin 20 MG Tab PO SCH ×3 (09:04→09:58)
[2022-12-23] MEDS: oxyCODONE 5 MG Tab PO SCH ×3 (09:05→09:59)
[2022-12-23] MEDS: Venlafaxine 37.5 MG Cap.ER PO SCH ×3 (09:05→09:58)
[2022-12-23] MEDS: Sodium Chloride 1 GM Tab PO SCH ×4 (09:05→20:05)
[2022-12-23] MEDS: Simethicone 80 MG Tab.Chew PO SCH ×4 (09:05→20:05)
[2022-12-23] MEDS: Pantoprazole 40 MG Tab.CR PO SCH ×3 (09:05→09:59)
[2022-12-23] MEDS: Meloxicam 7.5 MG Tab PO SCH ×3 (09:06→09:59)
[2022-12-23] MEDS: hydrOXYzine HCl 25 MG Tab PO SCH ×4 (09:06→20:03)
[2022-12-23] MEDS: amLODIPine 10 MG Tab PO SCH ×3 (09:06→09:59)
[2022-12-23] MEDS: Folic Acid 1 MG Tab PO SCH ×3 (09:06→09:58)
[2022-12-23] MEDS: Metoprolol Tartrate 25 MG Tab PO SCH ×4 (09:06→20:03)
[2022-12-23] MEDS: Baclofen 10 MG Tab PO SCH ×3 (09:06→09:58)
[2022-12-23] MEDS: Carboxymethylcellulose Sodium 1% Ophth Gel 15 ML Bottle EYEBOTH SCH ×5 (09:07→20:05)
[2022-12-23] MEDS: Mupirocin Oint 22 GM Tube TOP SCH ×4 (09:07→20:01)
[2022-12-23] MEDS: Lacosamide 100 MG Tab PO SCH ×4 (09:07→20:05)
[2022-12-23] MEDS: Lidocaine 4% 1 each Patch TOP PRN (11:42)
[2022-12-23] MEDS ORDERED: Carboxymethylcellulose Sodium 1% Ophth Gel 15 ML Bottle EYEBOTH PRN (15:06)
[2022-12-23] MEDS: Enoxaparin 40 MG/0.4 ML Syringe SUBCUT SCH (15:18)
[2022-12-23] MEDS: QUEtiapine 100 MG Tab PO SCH (20:05)
[2022-12-24] MEDS: Sodium Chloride 1 GM Tab PO SCH ×2 (09:13→20:18)
[2022-12-24] MEDS: levETIRAcetam 500 MG Tab PO SCH ×2 (09:13→20:18)
[2022-12-24] MEDS: oxyCODONE 5 MG Tab PO SCH (09:13)
[2022-12-24] MEDS: hydrOXYzine HCl 25 MG Tab PO SCH ×2 (09:15→20:19)
[2022-12-24] MEDS: Lacosamide 100 MG Tab PO SCH ×2 (09:15→20:18)
[2022-12-24] MEDS: Folic Acid 1 MG Tab PO SCH (09:16)
[2022-12-24] MEDS: Venlafaxine 37.5 MG Cap.ER PO SCH (09:16)
[2022-12-24] MEDS: Divalproex Sodium Delayed-Release 500 MG Tab.CR PO SCH ×2 (09:16→20:18)
[2022-12-24] MEDS: atorvaSTATin 20 MG Tab PO SCH (09:16)
[2022-12-24] MEDS: Meloxicam 7.5 MG Tab PO SCH (09:16)
[2022-12-24] MEDS: Baclofen 10 MG Tab PO SCH (09:16)
[2022-12-24] MEDS: Simethicone 80 MG Tab.Chew PO SCH ×2 (09:17→20:18)
[2022-12-24] MEDS: Pantoprazole 40 MG Tab.CR PO SCH (09:17)
[2022-12-24] MEDS: amLODIPine 10 MG Tab PO SCH (09:17)
[2022-12-24] MEDS: Metoprolol Tartrate 25 MG Tab PO SCH ×2 (09:18→20:19)
[2022-12-24] MEDS: Mupirocin Oint 22 GM Tube TOP SCH ×3 (09:22→20:28)
[2022-12-24] MEDS: Carboxymethylcellulose Sodium 1% Ophth Gel 15 ML Bottle EYEBOTH SCH ×3 (09:22→20:19)
[2022-12-24] MEDS: Lidocaine 4% 1 each Patch TOP PRN (15:47)
[2022-12-24] MEDS: Enoxaparin 40 MG/0.4 ML Syringe SUBCUT SCH (15:47)
[2022-12-24] MEDS: QUEtiapine 100 MG Tab PO SCH (20:19)
[2022-12-24] MEDS ORDERED: Sennosides 8.6 MG Tab PO PRN (21:00)
[2022-12-25 06:26] LABS: HEMATOCRIT 47.4 % (40.1-51.0); HEMOGLOBIN 15.4 gm/dl (13.7-17.5); MEAN CORPUSCULAR HEMOGLOBIN 28.6 pg (25.7-32.2); MEAN CORPUSCULAR HGB CONC 32.5 g/dl (32.2-35.5); MEAN CORPUSCULAR VOLUME 88.1 fl (79.0-92.2); MEAN PLATELET VOLUME 11.3 fl (9.4-12.3); PLATELET COUNT,PLT 126 K/mm3 (163-337); RED BLOOD CELL COUNT 5.38 M/mm3 (4.63-6.08); WHITE BLOOD CELL COUNT,WBC 5.27 K/mm3 (4.23-9.07)
[2022-12-25] MEDS: levETIRAcetam 500 MG Tab PO SCH ×2 (09:10→20:02)
[2022-12-25] MEDS: Sennosides 8.6 MG Tab PO SCH (09:10)
[2022-12-25] MEDS: Baclofen 10 MG Tab PO SCH (09:11)
[2022-12-25] MEDS: Divalproex Sodium Delayed-Release 500 MG Tab.CR PO SCH ×2 (09:11→20:02)
[2022-12-25] MEDS: Lacosamide 100 MG Tab PO SCH ×2 (09:11→20:01)
[2022-12-25] MEDS: hydrOXYzine HCl 25 MG Tab PO SCH ×2 (09:11→20:02)
[2022-12-25] MEDS: Pantoprazole 40 MG Tab.CR PO SCH (09:11)
[2022-12-25] MEDS: atorvaSTATin 20 MG Tab PO SCH (09:11)
[2022-12-25] MEDS: Simethicone 80 MG Tab.Chew PO SCH ×2 (09:11→20:02)
[2022-12-25] MEDS: Venlafaxine 37.5 MG Cap.ER PO SCH (09:11)
[2022-12-25] MEDS: amLODIPine 10 MG Tab PO SCH (09:12)
[2022-12-25] MEDS: Sodium Chloride 1 GM Tab PO SCH ×2 (09:12→20:01)
[2022-12-25] MEDS: oxyCODONE 5 MG Tab PO SCH (09:12)
[2022-12-25] MEDS: Meloxicam 7.5 MG Tab PO SCH (09:12)
[2022-12-25] MEDS: Carboxymethylcellulose Sodium 1% Ophth Gel 15 ML Bottle EYEBOTH SCH ×3 (09:13→20:00)
[2022-12-25] MEDS: Mupirocin Oint 22 GM Tube TOP SCH ×3 (09:13→20:00)
[2022-12-25] MEDS: Metoprolol Tartrate 25 MG Tab PO SCH ×2 (09:13→20:01)
[2022-12-25] MEDS: Folic Acid 1 MG Tab PO SCH (09:18)
[2022-12-25] MEDS: Lidocaine 4% 1 each Patch TOP PRN (14:05)
[2022-12-25] MEDS: Enoxaparin 40 MG/0.4 ML Syringe SUBCUT SCH (15:54)
[2022-12-25] MEDS: QUEtiapine 100 MG Tab PO SCH (20:02)
[2022-12-26] MEDS: levETIRAcetam 500 MG Tab PO SCH ×2 (09:08→20:20)
[2022-12-26] MEDS: Simethicone 80 MG Tab.Chew PO SCH ×2 (09:08→20:20)
[2022-12-26] MEDS: Metoprolol Tartrate 25 MG Tab PO SCH ×2 (09:08→20:19)
[2022-12-26] MEDS: atorvaSTATin 20 MG Tab PO SCH (09:12)
[2022-12-26] MEDS: Sennosides 8.6 MG Tab PO SCH (09:12)
[2022-12-26] MEDS: Mupirocin Oint 22 GM Tube TOP SCH ×3 (09:13→20:20)
[2022-12-26] MEDS: Lacosamide 100 MG Tab PO SCH ×2 (09:13→20:19)
[2022-12-26] MEDS: Divalproex Sodium Delayed-Release 500 MG Tab.CR PO SCH ×2 (09:13→20:19)
[2022-12-26] MEDS: Venlafaxine 37.5 MG Cap.ER PO SCH (09:13)
[2022-12-26] MEDS: hydrOXYzine HCl 25 MG Tab PO SCH ×2 (09:13→20:20)
[2022-12-26] MEDS: Sodium Chloride 1 GM Tab PO SCH ×2 (09:13→20:19)
[2022-12-26] MEDS: oxyCODONE 5 MG Tab PO SCH (09:14)
[2022-12-26] MEDS: Carboxymethylcellulose Sodium 1% Ophth Gel 15 ML Bottle EYEBOTH SCH ×4 (09:31→20:20)
[2022-12-26] MEDS: Lidocaine 4% 1 each Patch TOP PRN (15:34)
[2022-12-26] MEDS: Enoxaparin 40 MG/0.4 ML Syringe SUBCUT SCH (15:34)
[2022-12-26] MEDS: QUEtiapine 100 MG Tab PO SCH (20:20)
[2022-12-27] MEDS: Sennosides 8.6 MG Tab PO SCH (08:53)
[2022-12-27] MEDS: Simethicone 80 MG Tab.Chew PO SCH ×2 (08:54→21:07)
[2022-12-27] MEDS: atorvaSTATin 20 MG Tab PO SCH (08:54)
[2022-12-27] MEDS: Divalproex Sodium Delayed-Release 500 MG Tab.CR PO SCH ×2 (08:54→21:08)
[2022-12-27] MEDS: Venlafaxine 37.5 MG Cap.ER PO SCH (08:54)
[2022-12-27] MEDS: Sodium Chloride 1 GM Tab PO SCH ×2 (08:54→21:08)
[2022-12-27] MEDS: levETIRAcetam 500 MG Tab PO SCH ×2 (08:54→21:08)
[2022-12-27] MEDS: Lacosamide 100 MG Tab PO SCH ×2 (08:54→21:08)
[2022-12-27] MEDS: Metoprolol Tartrate 25 MG Tab PO SCH ×2 (08:55→21:08)
[2022-12-27] MEDS: hydrOXYzine HCl 25 MG Tab PO SCH ×2 (08:55→21:07)
[2022-12-27] MEDS: Mupirocin Oint 22 GM Tube TOP SCH ×3 (08:55→21:19)
[2022-12-27] MEDS: Carboxymethylcellulose Sodium 1% Ophth Gel 15 ML Bottle EYEBOTH SCH ×3 (08:56→21:07)
[2022-12-27] MEDS: oxyCODONE 5 MG Tab PO SCH (08:56)
[2022-12-27] MEDS: Lidocaine 4% 1 each Patch TOP PRN (11:03)
[2022-12-27] MEDS: Enoxaparin 40 MG/0.4 ML Syringe SUBCUT SCH (15:36)
[2022-12-27] MEDS: QUEtiapine 100 MG Tab PO SCH (21:07)
[2022-12-28] MEDS ORDERED: Benzocaine/Cetylpyridinium/Menthol Lozenge MUCMEM PRN (04:34)
[2022-12-28] MEDS: hydrOXYzine HCl 25 MG Tab PO SCH ×2 (08:34→21:47)
[2022-12-28] MEDS: Mupirocin Oint 22 GM Tube TOP SCH ×2 (08:35→16:03)
[2022-12-28] MEDS: Divalproex Sodium Delayed-Release 500 MG Tab.CR PO SCH ×2 (08:36→21:47)
[2022-12-28] MEDS: Venlafaxine 37.5 MG Cap.ER PO SCH (08:37)
[2022-12-28] MEDS: levETIRAcetam 500 MG Tab PO SCH ×2 (08:40→21:47)
[2022-12-28] MEDS: atorvaSTATin 20 MG Tab PO SCH (08:42)
[2022-12-28] MEDS: Metoprolol Tartrate 25 MG Tab PO SCH ×2 (08:45→21:49)
[2022-12-28] MEDS: oxyCODONE 5 MG Tab PO SCH (08:46)
[2022-12-28] MEDS: Simethicone 80 MG Tab.Chew PO SCH ×2 (08:48→21:46)
[2022-12-28] MEDS: Carboxymethylcellulose Sodium 1% Ophth Gel 15 ML Bottle EYEBOTH SCH ×3 (08:48→21:48)
[2022-12-28] MEDS: Sennosides 8.6 MG Tab PO SCH (08:48)
[2022-12-28] MEDS: Sodium Chloride 1 GM Tab PO SCH ×2 (08:50→21:46)
[2022-12-28] MEDS: Lacosamide 100 MG Tab PO SCH ×2 (08:51→21:46)
[2022-12-28] MEDS: Lidocaine 4% 1 each Patch TOP PRN (11:39)
[2022-12-28] MEDS: Enoxaparin 40 MG/0.4 ML Syringe SUBCUT SCH (16:03)
[2022-12-28] MEDS: QUEtiapine 100 MG Tab PO SCH (21:49)
[2022-12-29] MEDS: Mupirocin Oint 22 GM Tube TOP SCH ×3 (08:43→15:44)
[2022-12-29] MEDS: oxyCODONE 5 MG Tab PO SCH (09:00)
[2022-12-29] MEDS: Lacosamide 100 MG Tab PO SCH ×2 (09:01→21:11)
[2022-12-29] MEDS: Venlafaxine 37.5 MG Cap.ER PO SCH (09:01)
[2022-12-29] MEDS: hydrOXYzine HCl 25 MG Tab PO SCH ×2 (09:02→21:11)
[2022-12-29] MEDS: Simethicone 80 MG Tab.Chew PO SCH ×2 (09:02→21:11)
[2022-12-29] MEDS: levETIRAcetam 500 MG Tab PO SCH ×2 (09:02→21:11)
[2022-12-29] MEDS: Divalproex Sodium Delayed-Release 500 MG Tab.CR PO SCH ×2 (09:02→21:11)
[2022-12-29] MEDS: Sennosides 8.6 MG Tab PO SCH (09:02)
[2022-12-29] MEDS: Sodium Chloride 1 GM Tab PO SCH ×2 (09:02→21:11)
[2022-12-29] MEDS: Metoprolol Tartrate 25 MG Tab PO SCH ×2 (09:03→21:12)
[2022-12-29] MEDS: atorvaSTATin 20 MG Tab PO SCH (09:03)
[2022-12-29] MEDS: Lidocaine 4% 1 each Patch TOP PRN (09:10)
[2022-12-29] MEDS: Carboxymethylcellulose Sodium 1% Ophth Gel 15 ML Bottle EYEBOTH SCH ×3 (09:11→21:12)
[2022-12-29] MEDS: Enoxaparin 40 MG/0.4 ML Syringe SUBCUT SCH (15:42)
[2022-12-29] MEDS: QUEtiapine 100 MG Tab PO SCH ×2 (21:11→21:12)
[2022-12-30] MEDS: Sennosides 8.6 MG Tab PO SCH (09:15)
[2022-12-30] MEDS: Lacosamide 100 MG Tab PO SCH ×2 (09:15→20:34)
[2022-12-30] MEDS: Divalproex Sodium Delayed-Release 500 MG Tab.CR PO SCH ×2 (09:16→20:34)
[2022-12-30] MEDS: Sodium Chloride 1 GM Tab PO SCH ×2 (09:16→20:34)
[2022-12-30] MEDS: oxyCODONE 5 MG Tab PO SCH (09:18)
[2022-12-30] MEDS: Simethicone 80 MG Tab.Chew PO SCH ×2 (09:18→20:34)
[2022-12-30] MEDS: hydrOXYzine HCl 25 MG Tab PO SCH ×2 (09:18→20:34)
[2022-12-30] MEDS: atorvaSTATin 20 MG Tab PO SCH (09:19)
[2022-12-30] MEDS: Metoprolol Tartrate 25 MG Tab PO SCH ×2 (09:20→20:34)
[2022-12-30] MEDS: Venlafaxine 37.5 MG Cap.ER PO SCH (09:21)
[2022-12-30] MEDS: levETIRAcetam 500 MG Tab PO SCH ×2 (09:22→20:35)
[2022-12-30] MEDS: Lidocaine 4% 1 each Patch TOP PRN (09:23)
[2022-12-30] MEDS: Carboxymethylcellulose Sodium 1% Ophth Gel 15 ML Bottle EYEBOTH SCH ×3 (09:23→20:35)
[2022-12-30] MEDS: Albuterol/Ipratropium 3.0-0.5 MG/3 ML Neb Soln NEB PRN (12:53)
[2022-12-30] MEDS: Enoxaparin 40 MG/0.4 ML Syringe SUBCUT SCH (14:01)
[2022-12-30] MEDS: QUEtiapine 100 MG Tab PO SCH (20:34)
[2022-12-31] MEDS: Sodium Chloride 1 GM Tab PO SCH ×2 (09:49→20:07)
[2022-12-31] MEDS: Lidocaine 4% 1 each Patch TOP PRN (09:49)
[2022-12-31] MEDS: Venlafaxine 37.5 MG Cap.ER PO SCH (09:50)
[2022-12-31] MEDS: Sennosides 8.6 MG Tab PO SCH (09:50)
[2022-12-31] MEDS: atorvaSTATin 20 MG Tab PO SCH (09:50)
[2022-12-31] MEDS: oxyCODONE 5 MG Tab PO SCH (09:52)
[2022-12-31] MEDS: Lacosamide 100 MG Tab PO SCH ×2 (09:52→20:07)
[2022-12-31] MEDS: Divalproex Sodium Delayed-Release 500 MG Tab.CR PO SCH ×2 (09:52→20:07)
[2022-12-31] MEDS: levETIRAcetam 500 MG Tab PO SCH ×2 (09:53→20:07)
[2022-12-31] MEDS: hydrOXYzine HCl 25 MG Tab PO SCH ×2 (09:56→20:06)
[2022-12-31] MEDS: Simethicone 80 MG Tab.Chew PO SCH ×2 (09:56→20:06)
[2022-12-31] MEDS: Carboxymethylcellulose Sodium 1% Ophth Gel 15 ML Bottle EYEBOTH SCH ×3 (09:57→20:07)
[2022-12-31] MEDS: Metoprolol Tartrate 25 MG Tab PO SCH ×2 (10:08→20:06)
[2022-12-31] MEDS: Albuterol/Ipratropium 3.0-0.5 MG/3 ML Neb Soln NEB PRN ×2 (12:04→16:48)
[2022-12-31] MEDS: Enoxaparin 40 MG/0.4 ML Syringe SUBCUT SCH (15:08)
[2022-12-31] MEDS: QUEtiapine 100 MG Tab PO SCH (20:07)
[2022-12-31] MEDS: Acetaminophen 325 MG Tab PO PRN (20:34)
[2023-01-01] MEDS: Lidocaine 4% 1 each Patch TOP PRN (07:55)
[2023-01-01] MEDS: Polyethylene Glycol 3350 Powder 17 GM Packet PO PRN (07:55)
[2023-01-01] MEDS: Sennosides/Docusate Sodium 50-8.6 MG Tab PO PRN (07:56)
[2023-01-01] MEDS: hydrOXYzine HCl 25 MG Tab PO SCH ×2 (08:00→20:09)
[2023-01-01] MEDS: Divalproex Sodium Delayed-Release 500 MG Tab.CR PO SCH ×2 (08:00→20:08)
[2023-01-01] MEDS: Metoprolol Tartrate 25 MG Tab PO SCH ×2 (08:00→20:08)
[2023-01-01] MEDS: oxyCODONE 5 MG Tab PO SCH (08:00)
[2023-01-01] MEDS: levETIRAcetam 500 MG Tab PO SCH ×2 (08:01→20:08)
[2023-01-01] MEDS: Lacosamide 100 MG Tab PO SCH ×2 (08:01→20:09)
[2023-01-01] MEDS: Sodium Chloride 1 GM Tab PO SCH ×2 (08:01→20:08)
[2023-01-01] MEDS: atorvaSTATin 40 MG Tab PO SCH (08:02)
[2023-01-01] MEDS: Simethicone 80 MG Tab.Chew PO SCH ×2 (08:02→20:08)
[2023-01-01] MEDS: Sennosides 8.6 MG Tab PO SCH (08:02)
[2023-01-01] MEDS: Venlafaxine 37.5 MG Cap.ER PO SCH (08:02)
[2023-01-01] MEDS: Carboxymethylcellulose Sodium 1% Ophth Gel 15 ML Bottle EYEBOTH SCH ×3 (08:07→20:09)
[2023-01-01 08:22] LABS: BASOPHILS ABSOLUTE AUTO 0.01 K/mm3 (0.01-0.08); BASOPHILS PERCENT AUTO 0.2 % (0.1-1.2); EOSINOPHILS ABSOLUTE AUTO 0.13 K/mm3 (0.04-0.54); EOSINOPHILS PERCENT AUTO 2.7 (0.8-7.0); HEMATOCRIT 50.8 % (40.1-51.0); HEMOGLOBIN 16.6 gm/dl (13.7-17.5); IMMATURE GRAN ABSOLUTE AUTO 0.01 K/mm3 (0.00-0.10); IMMATURE GRAN PERCENT AUTO 0.2 % (<=1.0); LYMPHOCYTES ABSOLUTE AUTO 2.36 K/mm3 (1.32-3.57); LYMPHOCYTES PERCENT AUTO 48.6 % (21.8-53.1); MEAN CORPUSCULAR HEMOGLOBIN 28.9 pg (25.7-32.2); MEAN CORPUSCULAR HGB CONC 32.7 g/dl (32.2-35.5); MEAN CORPUSCULAR VOLUME 88.5 fl (79.0-92.2); MEAN PLATELET VOLUME 11.2 fl (9.4-12.3); MONOCYTES PERCENT AUTO 8.2 % (5.3-12.2); NEUTROPHILS ABSOLUTE AUTO 1.95 K/mm3 (1.78-5.38); NEUTROPHILS PERCENT AUTO 40.1 % (34.0-67.9); PLATELET COUNT,PLT 130 K/mm3 (163-337); RED BLOOD CELL COUNT 5.74 M/mm3 (4.63-6.08); WHITE BLOOD CELL COUNT,WBC 4.86 K/mm3 (4.23-9.07)
[2023-01-01 09:05] LABS: A/G RATIO 0.8 (1-2); ALANINE AMINOTRANSFERASE,ALT 31 U/L (16-63); ALBUMIN 3.2 g/dl (3.4-5.0); ALKALINE PHOSPHATASE 85 U/L (46-116); ANION GAP 13.1 (5-15); BILIRUBIN TOTAL 0.5 mg/dL (0.2-1.0); BLOOD UREA NITROGEN,BUN 19 mg/dL (7-18); C-REACTIVE PROTEIN <0.2 mg/dL (<1.0); CARBON DIOXIDE,CO2 28 mEq/L (21-32); CHLORIDE,CL 106 mEq/L (98-107); EST CRCL DRUG DOSING (CG) 85.82 mL/min; ESTIMATED GFR 92 mL/min (>60); GLUCOSE RANDOM 195 mg/dL (70-99); POTASSIUM,K 4.1 mEq/L (3.5-5.1); SODIUM,NA 143 mEq/L (136-145)
[2023-01-01 09:27] LABS: ASPARTATE AMNIOTRANSFERASE,AST 17 U/L (15-37)
[2023-01-01] MEDS: Enoxaparin 40 MG/0.4 ML Syringe SUBCUT SCH (14:30)
[2023-01-01] MEDS: QUEtiapine 100 MG Tab PO SCH (20:08)
[2023-01-01] MEDS: Acetaminophen 325 MG Tab PO PRN (20:58)
[2023-01-02] MEDS: Sodium Chloride 1 GM Tab PO SCH ×2 (09:13→21:52)
[2023-01-02] MEDS: Simethicone 80 MG Tab.Chew PO SCH ×2 (09:14→21:53)
[2023-01-02] MEDS: Lacosamide 100 MG Tab PO SCH ×2 (09:14→21:52)
[2023-01-02] MEDS: Metoprolol Tartrate 25 MG Tab PO SCH ×2 (09:14→21:53)
[2023-01-02] MEDS: Sennosides 8.6 MG Tab PO SCH (09:14)
[2023-01-02] MEDS: oxyCODONE 5 MG Tab PO SCH (09:14)
[2023-01-02] MEDS: levETIRAcetam 500 MG Tab PO SCH ×2 (09:15→21:52)
[2023-01-02] MEDS: Venlafaxine 37.5 MG Cap.ER PO SCH (09:15)
[2023-01-02] MEDS: atorvaSTATin 40 MG Tab PO SCH (09:15)
[2023-01-02] MEDS: hydrOXYzine HCl 25 MG Tab PO SCH ×2 (09:15→21:52)
[2023-01-02] MEDS: Divalproex Sodium Delayed-Release 500 MG Tab.CR PO SCH ×2 (09:15→21:52)
[2023-01-02] MEDS: Carboxymethylcellulose Sodium 1% Ophth Gel 15 ML Bottle EYEBOTH SCH ×3 (09:21→21:53)
[2023-01-02] MEDS: Enoxaparin 40 MG/0.4 ML Syringe SUBCUT SCH (14:21)
[2023-01-02] MEDS: QUEtiapine 100 MG Tab PO SCH (21:52)
[2023-01-03] MEDS: hydrOXYzine HCl 25 MG Tab PO SCH ×2 (08:31→20:55)
[2023-01-03] MEDS: Sodium Chloride 1 GM Tab PO SCH ×2 (08:31→20:55)
[2023-01-03] MEDS: Sennosides 8.6 MG Tab PO SCH (08:31)
[2023-01-03] MEDS: Lacosamide 100 MG Tab PO SCH ×2 (08:31→20:55)
[2023-01-03] MEDS: Simethicone 80 MG Tab.Chew PO SCH ×2 (08:31→20:55)
[2023-01-03] MEDS: atorvaSTATin 40 MG Tab PO SCH (08:31)
[2023-01-03] MEDS: Venlafaxine 37.5 MG Cap.ER PO SCH (08:31)
[2023-01-03] MEDS: Divalproex Sodium Delayed-Release 500 MG Tab.CR PO SCH ×2 (08:31→20:54)
[2023-01-03] MEDS: Metoprolol Tartrate 25 MG Tab PO SCH ×2 (08:32→20:55)
[2023-01-03] MEDS: oxyCODONE 5 MG Tab PO SCH (08:32)
[2023-01-03] MEDS: levETIRAcetam 500 MG Tab PO SCH ×2 (08:33→20:55)
[2023-01-03] MEDS: Carboxymethylcellulose Sodium 1% Ophth Gel 15 ML Bottle EYEBOTH SCH ×3 (08:33→20:55)
[2023-01-03] MEDS: Enoxaparin 40 MG/0.4 ML Syringe SUBCUT SCH (15:50)
[2023-01-03] MEDS: QUEtiapine 100 MG Tab PO SCH (20:55)
[2023-01-04] MEDS: atorvaSTATin 40 MG Tab PO SCH (08:41)
[2023-01-04] MEDS: Venlafaxine 37.5 MG Cap.ER PO SCH (08:41)
[2023-01-04] MEDS: Divalproex Sodium Delayed-Release 500 MG Tab.CR PO SCH ×2 (08:41→20:29)
[2023-01-04] MEDS: levETIRAcetam 500 MG Tab PO SCH ×2 (08:41→20:28)
[2023-01-04] MEDS: hydrOXYzine HCl 25 MG Tab PO SCH ×2 (08:41→20:28)
[2023-01-04] MEDS: Simethicone 80 MG Tab.Chew PO SCH ×2 (08:41→20:29)
[2023-01-04] MEDS: Sennosides 8.6 MG Tab PO SCH (08:42)
[2023-01-04] MEDS: Metoprolol Tartrate 25 MG Tab PO SCH ×2 (08:42→20:28)
[2023-01-04] MEDS: Lacosamide 100 MG Tab PO SCH ×2 (08:42→20:28)
[2023-01-04] MEDS: oxyCODONE 5 MG Tab PO SCH (08:42)
[2023-01-04] MEDS: Sodium Chloride 1 GM Tab PO SCH ×2 (08:42→20:28)
[2023-01-04] MEDS: Carboxymethylcellulose Sodium 1% Ophth Gel 15 ML Bottle EYEBOTH SCH ×3 (08:47→20:29)
[2023-01-04] MEDS: Lidocaine 4% 1 each Patch TOP PRN (10:36)
[2023-01-04] MEDS: Enoxaparin 40 MG/0.4 ML Syringe SUBCUT SCH (15:44)
[2023-01-04] MEDS: QUEtiapine 100 MG Tab PO SCH (20:28)
[2023-01-05] MEDS: Divalproex Sodium Delayed-Release 500 MG Tab.CR PO SCH ×2 (09:41→20:07)
[2023-01-05] MEDS: Venlafaxine 37.5 MG Cap.ER PO SCH (09:42)
[2023-01-05] MEDS: levETIRAcetam 500 MG Tab PO SCH ×2 (09:42→20:03)
[2023-01-05] MEDS: Simethicone 80 MG Tab.Chew PO SCH ×2 (09:42→20:02)
[2023-01-05] MEDS: Metoprolol Tartrate 25 MG Tab PO SCH ×2 (09:43→20:11)
[2023-01-05] MEDS: oxyCODONE 5 MG Tab PO SCH (09:43)
[2023-01-05] MEDS: Sodium Chloride 1 GM Tab PO SCH ×2 (09:43→20:04)
[2023-01-05] MEDS: Sennosides 8.6 MG Tab PO SCH (09:43)
[2023-01-05] MEDS: Lacosamide 100 MG Tab PO SCH ×2 (09:43→20:07)
[2023-01-05] MEDS: atorvaSTATin 40 MG Tab PO SCH (09:43)
[2023-01-05] MEDS: hydrOXYzine HCl 25 MG Tab PO SCH ×2 (09:43→20:07)
[2023-01-05] MEDS: Lidocaine 4% 1 each Patch TOP PRN (09:46)
[2023-01-05] MEDS: Carboxymethylcellulose Sodium 1% Ophth Gel 15 ML Bottle EYEBOTH SCH ×3 (09:46→20:14)
[2023-01-05] MEDS: Enoxaparin 40 MG/0.4 ML Syringe SUBCUT SCH (16:01)
[2023-01-05] MEDS: Acetaminophen 325 MG Tab PO PRN (20:05)
[2023-01-05] MEDS: QUEtiapine 100 MG Tab PO SCH (20:07)
[2023-01-06] MEDS: Simethicone 80 MG Tab.Chew PO SCH ×2 (10:32→20:13)
[2023-01-06] MEDS: Divalproex Sodium Delayed-Release 500 MG Tab.CR PO SCH ×2 (10:33→20:11)
[2023-01-06] MEDS: atorvaSTATin 40 MG Tab PO SCH (10:33)
[2023-01-06] MEDS: Venlafaxine 37.5 MG Cap.ER PO SCH (10:33)
[2023-01-06] MEDS: Sennosides 8.6 MG Tab PO SCH (10:33)
[2023-01-06] MEDS: levETIRAcetam 500 MG Tab PO SCH ×2 (10:33→20:11)
[2023-01-06] MEDS: Sodium Chloride 1 GM Tab PO SCH ×2 (10:34→20:12)
[2023-01-06] MEDS: hydrOXYzine HCl 25 MG Tab PO SCH ×2 (10:34→20:13)
[2023-01-06] MEDS: Lacosamide 100 MG Tab PO SCH ×2 (10:34→20:11)
[2023-01-06] MEDS: oxyCODONE 5 MG Tab PO SCH (10:34)
[2023-01-06] MEDS: Metoprolol Tartrate 25 MG Tab PO SCH ×2 (10:34→20:13)
[2023-01-06] MEDS: Carboxymethylcellulose Sodium 1% Ophth Gel 15 ML Bottle EYEBOTH SCH ×3 (10:40→20:16)
[2023-01-06] MEDS: Enoxaparin 40 MG/0.4 ML Syringe SUBCUT SCH (16:17)
[2023-01-06] MEDS: QUEtiapine 100 MG Tab PO SCH (20:12)
[2023-01-06] MEDS: Acetaminophen 325 MG Tab PO PRN (22:05)
[2023-01-07] MEDS: levETIRAcetam 500 MG Tab PO SCH ×2 (08:02→20:56)
[2023-01-07] MEDS: Venlafaxine 37.5 MG Cap.ER PO SCH (08:02)
[2023-01-07] MEDS: Sennosides 8.6 MG Tab PO SCH (08:02)
[2023-01-07] MEDS: Sodium Chloride 1 GM Tab PO SCH ×2 (08:02→20:54)
[2023-01-07] MEDS: Simethicone 80 MG Tab.Chew PO SCH ×2 (08:03→20:55)
[2023-01-07] MEDS: hydrOXYzine HCl 25 MG Tab PO SCH ×2 (08:03→20:55)
[2023-01-07] MEDS: atorvaSTATin 40 MG Tab PO SCH (08:03)
[2023-01-07] MEDS: Divalproex Sodium Delayed-Release 500 MG Tab.CR PO SCH ×2 (08:03→20:56)
[2023-01-07] MEDS: Lacosamide 100 MG Tab PO SCH ×2 (08:03→20:56)
[2023-01-07] MEDS: Metoprolol Tartrate 25 MG Tab PO SCH ×2 (08:04→20:56)
[2023-01-07] MEDS: oxyCODONE 5 MG Tab PO SCH (08:04)
[2023-01-07] MEDS: Carboxymethylcellulose Sodium 1% Ophth Gel 15 ML Bottle EYEBOTH SCH ×3 (08:04→20:56)
[2023-01-07] MEDS: Enoxaparin 40 MG/0.4 ML Syringe SUBCUT SCH (16:43)
[2023-01-07] MEDS: QUEtiapine 100 MG Tab PO SCH (20:56)
[2023-01-07] MEDS: Acetaminophen 325 MG Tab PO PRN (21:37)
[2023-01-08] MEDS: Lidocaine 4% 1 each Patch TOP PRN (07:57)
[2023-01-08] MEDS: Divalproex Sodium Delayed-Release 500 MG Tab.CR PO SCH ×2 (08:00→20:45)
[2023-01-08] MEDS: Sennosides 8.6 MG Tab PO SCH (08:00)
[2023-01-08] MEDS: Metoprolol Tartrate 25 MG Tab PO SCH ×2 (08:00→20:45)
[2023-01-08] MEDS: Sodium Chloride 1 GM Tab PO SCH ×2 (08:01→20:46)
[2023-01-08] MEDS: levETIRAcetam 500 MG Tab PO SCH ×2 (08:01→20:46)
[2023-01-08] MEDS: atorvaSTATin 40 MG Tab PO SCH (08:01)
[2023-01-08] MEDS: hydrOXYzine HCl 25 MG Tab PO SCH ×2 (08:01→20:46)
[2023-01-08] MEDS: Simethicone 80 MG Tab.Chew PO SCH ×2 (08:01→20:46)
[2023-01-08] MEDS: Venlafaxine 37.5 MG Cap.ER PO SCH (08:01)
[2023-01-08] MEDS: Lacosamide 100 MG Tab PO SCH ×2 (08:01→20:46)
[2023-01-08] MEDS: oxyCODONE 5 MG Tab PO SCH (08:02)
[2023-01-08] MEDS: Carboxymethylcellulose Sodium 1% Ophth Gel 15 ML Bottle EYEBOTH SCH ×3 (08:03→20:47)
[2023-01-08] MEDS: Enoxaparin 40 MG/0.4 ML Syringe SUBCUT SCH (14:42)
[2023-01-08] MEDS: QUEtiapine 100 MG Tab PO SCH (20:45)
[2023-01-08] MEDS: Acetaminophen 325 MG Tab PO PRN (20:46)
[2023-01-09] MEDS: Carboxymethylcellulose Sodium 1% Ophth Gel 15 ML Bottle EYEBOTH SCH ×3 (08:57→21:19)
[2023-01-09] MEDS: Sennosides 8.6 MG Tab PO SCH (08:58)
[2023-01-09] MEDS: Divalproex Sodium Delayed-Release 500 MG Tab.CR PO SCH ×2 (08:58→21:17)
[2023-01-09] MEDS: Simethicone 80 MG Tab.Chew PO SCH ×2 (08:58→21:16)
[2023-01-09] MEDS: levETIRAcetam 500 MG Tab PO SCH ×2 (08:58→21:16)
[2023-01-09] MEDS: Metoprolol Tartrate 25 MG Tab PO SCH ×2 (08:58→21:18)
[2023-01-09] MEDS: atorvaSTATin 40 MG Tab PO SCH (08:58)
[2023-01-09] MEDS: hydrOXYzine HCl 25 MG Tab PO SCH ×2 (08:58→21:18)
[2023-01-09] MEDS: oxyCODONE 5 MG Tab PO SCH (09:00)
[2023-01-09] MEDS: Sodium Chloride 1 GM Tab PO SCH ×2 (09:00→21:18)
[2023-01-09] MEDS: Venlafaxine 37.5 MG Cap.ER PO SCH (09:00)
[2023-01-09] MEDS: Lidocaine 4% 1 each Patch TOP PRN (09:01)
[2023-01-09] MEDS: Lacosamide 100 MG Tab PO SCH ×2 (09:01→21:18)
[2023-01-09] MEDS: Enoxaparin 40 MG/0.4 ML Syringe SUBCUT SCH (17:11)
[2023-01-09] MEDS: QUEtiapine 100 MG Tab PO SCH (21:17)
[2023-01-10] MEDS: levETIRAcetam 500 MG Tab PO SCH ×2 (08:46→21:22)
[2023-01-10] MEDS: Sodium Chloride 1 GM Tab PO SCH ×2 (08:46→21:21)
[2023-01-10] MEDS: Lacosamide 100 MG Tab PO SCH ×2 (08:46→21:22)
[2023-01-10] MEDS: Simethicone 80 MG Tab.Chew PO SCH ×2 (08:47→21:22)
[2023-01-10] MEDS: Divalproex Sodium Delayed-Release 500 MG Tab.CR PO SCH ×2 (08:48→21:21)
[2023-01-10] MEDS: hydrOXYzine HCl 25 MG Tab PO SCH ×2 (08:49→21:21)
[2023-01-10] MEDS: Venlafaxine 37.5 MG Cap.ER PO SCH (08:49)
[2023-01-10] MEDS: atorvaSTATin 40 MG Tab PO SCH (08:50)
[2023-01-10] MEDS: oxyCODONE 5 MG Tab PO SCH (08:50)
[2023-01-10] MEDS: Sennosides 8.6 MG Tab PO SCH (08:50)
[2023-01-10] MEDS: Metoprolol Tartrate 25 MG Tab PO SCH ×2 (08:51→21:22)
[2023-01-10] MEDS: Carboxymethylcellulose Sodium 1% Ophth Gel 15 ML Bottle EYEBOTH SCH ×3 (08:52→21:24)
[2023-01-10] MEDS: Enoxaparin 40 MG/0.4 ML Syringe SUBCUT SCH (16:32)
[2023-01-10] MEDS: QUEtiapine 100 MG Tab PO SCH (21:22)
[2023-01-10] MEDS: Acetaminophen 325 MG Tab PO PRN (22:16)
[2023-01-11] MEDS: Divalproex Sodium Delayed-Release 500 MG Tab.CR PO SCH ×2 (08:13→20:05)
[2023-01-11] MEDS: Lacosamide 100 MG Tab PO SCH ×2 (08:14→20:05)
[2023-01-11] MEDS: Sennosides 8.6 MG Tab PO SCH (08:14)
[2023-01-11] MEDS: Sodium Chloride 1 GM Tab PO SCH ×2 (08:14→20:05)
[2023-01-11] MEDS: Venlafaxine 37.5 MG Cap.ER PO SCH (08:14)
[2023-01-11] MEDS: Metoprolol Tartrate 25 MG Tab PO SCH ×2 (08:15→20:06)
[2023-01-11] MEDS: oxyCODONE 5 MG Tab PO SCH (08:15)
[2023-01-11] MEDS: levETIRAcetam 500 MG Tab PO SCH ×2 (08:17→20:06)
[2023-01-11] MEDS: atorvaSTATin 40 MG Tab PO SCH (08:17)
[2023-01-11] MEDS: hydrOXYzine HCl 25 MG Tab PO SCH ×2 (08:18→20:07)
[2023-01-11] MEDS: Simethicone 80 MG Tab.Chew PO SCH ×2 (08:18→20:06)
[2023-01-11] MEDS: Lidocaine 4% 1 each Patch TOP PRN (08:18)
[2023-01-11] MEDS: Carboxymethylcellulose Sodium 1% Ophth Gel 15 ML Bottle EYEBOTH SCH ×3 (08:19→20:07)
[2023-01-11] MEDS: Enoxaparin 40 MG/0.4 ML Syringe SUBCUT SCH (17:09)
[2023-01-11] MEDS: QUEtiapine 100 MG Tab PO SCH (20:05)
[2023-01-12] MEDS: Simethicone 80 MG Tab.Chew PO SCH ×2 (09:39→20:36)
[2023-01-12] MEDS: Venlafaxine 37.5 MG Cap.ER PO SCH (09:40)
[2023-01-12] MEDS: Lacosamide 100 MG Tab PO SCH ×2 (09:40→20:36)
[2023-01-12] MEDS: atorvaSTATin 40 MG Tab PO SCH (09:40)
[2023-01-12] MEDS: levETIRAcetam 500 MG Tab PO SCH ×2 (09:41→20:34)
[2023-01-12] MEDS: oxyCODONE 5 MG Tab PO SCH (09:41)
[2023-01-12] MEDS: Divalproex Sodium Delayed-Release 500 MG Tab.CR PO SCH ×2 (09:42→20:36)
[2023-01-12] MEDS: Metoprolol Tartrate 25 MG Tab PO SCH ×2 (09:42→20:35)
[2023-01-12] MEDS: Sodium Chloride 1 GM Tab PO SCH ×2 (09:43→20:36)
[2023-01-12] MEDS: hydrOXYzine HCl 25 MG Tab PO SCH ×2 (09:43→20:36)
[2023-01-12] MEDS: Sennosides 8.6 MG Tab PO SCH (09:43)
[2023-01-12] MEDS: Lidocaine 4% 1 each Patch TOP PRN (09:44)
[2023-01-12] MEDS: Carboxymethylcellulose Sodium 1% Ophth Gel 15 ML Bottle EYEBOTH SCH ×3 (09:44→20:46)
[2023-01-12] MEDS: Enoxaparin 40 MG/0.4 ML Syringe SUBCUT SCH (16:43)
[2023-01-12] MEDS: QUEtiapine 100 MG Tab PO SCH (20:38)
[2023-01-13] MEDS: Sennosides 8.6 MG Tab PO SCH (08:56)
[2023-01-13] MEDS: Simethicone 80 MG Tab.Chew PO SCH ×2 (08:56→20:34)
[2023-01-13] MEDS: hydrOXYzine HCl 25 MG Tab PO SCH ×2 (08:57→20:31)
[2023-01-13] MEDS: Metoprolol Tartrate 25 MG Tab PO SCH ×2 (08:57→20:31)
[2023-01-13] MEDS: Venlafaxine 37.5 MG Cap.ER PO SCH (08:57)
[2023-01-13] MEDS: Lacosamide 100 MG Tab PO SCH ×2 (08:57→20:34)
[2023-01-13] MEDS: atorvaSTATin 40 MG Tab PO SCH (08:57)
[2023-01-13] MEDS: Divalproex Sodium Delayed-Release 500 MG Tab.CR PO SCH ×2 (08:57→20:30)
[2023-01-13] MEDS: Sodium Chloride 1 GM Tab PO SCH ×2 (08:57→20:30)
[2023-01-13] MEDS: levETIRAcetam 500 MG Tab PO SCH ×2 (08:57→20:30)
[2023-01-13] MEDS: oxyCODONE 5 MG Tab PO SCH (08:58)
[2023-01-13] MEDS: Carboxymethylcellulose Sodium 1% Ophth Gel 15 ML Bottle EYEBOTH SCH ×3 (09:03→20:28)
[2023-01-13] MEDS: Lidocaine 4% 1 each Patch TOP PRN (09:03)
[2023-01-13] MEDS: Enoxaparin 40 MG/0.4 ML Syringe SUBCUT SCH (15:57)
[2023-01-13] MEDS: QUEtiapine 100 MG Tab PO SCH (20:30)
[2023-01-13] MEDS: Acetaminophen 325 MG Tab PO PRN (20:40)
[2023-01-14] MEDS: Sennosides 8.6 MG Tab PO SCH (08:46)
[2023-01-14] MEDS: levETIRAcetam 500 MG Tab PO SCH ×2 (08:46→20:03)
[2023-01-14] MEDS: Simethicone 80 MG Tab.Chew PO SCH ×2 (08:46→20:04)
[2023-01-14] MEDS: Sodium Chloride 1 GM Tab PO SCH ×2 (08:46→20:03)
[2023-01-14] MEDS: Divalproex Sodium Delayed-Release 500 MG Tab.CR PO SCH ×2 (08:47→20:03)
[2023-01-14] MEDS: Venlafaxine 37.5 MG Cap.ER PO SCH (08:47)
[2023-01-14] MEDS: atorvaSTATin 40 MG Tab PO SCH (08:47)
[2023-01-14] MEDS: hydrOXYzine HCl 25 MG Tab PO SCH ×2 (08:47→20:03)
[2023-01-14] MEDS: oxyCODONE 5 MG Tab PO SCH (08:47)
[2023-01-14] MEDS: Lacosamide 100 MG Tab PO SCH ×2 (08:47→20:03)
[2023-01-14] MEDS: Metoprolol Tartrate 25 MG Tab PO SCH ×2 (08:47→20:04)
[2023-01-14] MEDS: Carboxymethylcellulose Sodium 1% Ophth Gel 15 ML Bottle EYEBOTH SCH ×3 (08:52→20:05)
[2023-01-14] MEDS: Lidocaine 4% 1 each Patch TOP PRN (08:53)
[2023-01-14] MEDS: Enoxaparin 40 MG/0.4 ML Syringe SUBCUT SCH (14:41)
[2023-01-14] MEDS: Acetaminophen 325 MG Tab PO PRN (20:03)
[2023-01-14] MEDS: QUEtiapine 100 MG Tab PO SCH (20:04)
[2023-01-15] MEDS: oxyCODONE 5 MG Tab PO SCH (09:51)
[2023-01-15] MEDS: Sennosides 8.6 MG Tab PO SCH (09:51)
[2023-01-15] MEDS: Simethicone 80 MG Tab.Chew PO SCH ×2 (09:51→21:04)
[2023-01-15] MEDS: Divalproex Sodium Delayed-Release 500 MG Tab.CR PO SCH ×2 (09:52→21:05)
[2023-01-15] MEDS: Lacosamide 100 MG Tab PO SCH ×2 (09:52→21:04)
[2023-01-15] MEDS: levETIRAcetam 500 MG Tab PO SCH ×2 (09:52→21:04)
[2023-01-15] MEDS: hydrOXYzine HCl 25 MG Tab PO SCH ×2 (09:52→21:05)
[2023-01-15] MEDS: Sodium Chloride 1 GM Tab PO SCH ×2 (09:52→21:05)
[2023-01-15] MEDS: atorvaSTATin 40 MG Tab PO SCH (09:52)
[2023-01-15] MEDS: Venlafaxine 37.5 MG Cap.ER PO SCH (09:52)
[2023-01-15] MEDS: Metoprolol Tartrate 25 MG Tab PO SCH ×2 (09:53→21:05)
[2023-01-15] MEDS: Carboxymethylcellulose Sodium 1% Ophth Gel 15 ML Bottle EYEBOTH SCH ×3 (10:01→21:06)
[2023-01-15] MEDS: Lidocaine 4% 1 each Patch TOP PRN (10:02)
[2023-01-15] MEDS: Acetaminophen 325 MG Tab PO PRN (13:51)
[2023-01-15] MEDS: Enoxaparin 40 MG/0.4 ML Syringe SUBCUT SCH (17:05)
[2023-01-15] MEDS: QUEtiapine 100 MG Tab PO SCH (21:04)
[2023-01-16] MEDS: Simethicone 80 MG Tab.Chew PO SCH ×2 (09:30→20:20)
[2023-01-16] MEDS: oxyCODONE 5 MG Tab PO SCH (09:31)
[2023-01-16] MEDS: levETIRAcetam 500 MG Tab PO SCH ×2 (09:31→20:28)
[2023-01-16] MEDS: Sennosides 8.6 MG Tab PO SCH (09:31)
[2023-01-16] MEDS: Metoprolol Tartrate 25 MG Tab PO SCH ×2 (09:31→20:29)
[2023-01-16] MEDS: hydrOXYzine HCl 25 MG Tab PO SCH ×2 (09:31→20:27)
[2023-01-16] MEDS: Lacosamide 100 MG Tab PO SCH ×2 (09:32→20:27)
[2023-01-16] MEDS: Divalproex Sodium Delayed-Release 500 MG Tab.CR PO SCH ×2 (09:32→20:28)
[2023-01-16] MEDS: Venlafaxine 37.5 MG Cap.ER PO SCH (09:32)
[2023-01-16] MEDS: atorvaSTATin 40 MG Tab PO SCH (09:32)
[2023-01-16] MEDS: Sodium Chloride 1 GM Tab PO SCH ×2 (09:33→20:28)
[2023-01-16] MEDS: Lidocaine 4% 1 each Patch TOP PRN (09:40)
[2023-01-16] MEDS: Carboxymethylcellulose Sodium 1% Ophth Gel 15 ML Bottle EYEBOTH SCH ×3 (09:40→20:26)
[2023-01-16] MEDS: Acetaminophen 325 MG Tab PO PRN (13:21)
[2023-01-16] MEDS: Enoxaparin 40 MG/0.4 ML Syringe SUBCUT SCH (14:48)
[2023-01-16] MEDS: QUEtiapine 100 MG Tab PO SCH (20:29)
[2023-01-17] MEDS: Carboxymethylcellulose Sodium 1% Ophth Gel 15 ML Bottle EYEBOTH SCH ×3 (09:15→20:05)
[2023-01-17] MEDS: Venlafaxine 37.5 MG Cap.ER PO SCH (09:16)
[2023-01-17] MEDS: levETIRAcetam 500 MG Tab PO SCH ×2 (09:16→20:09)
[2023-01-17] MEDS: Simethicone 80 MG Tab.Chew PO SCH ×2 (09:17→20:08)
[2023-01-17] MEDS: Sennosides 8.6 MG Tab PO SCH (09:17)
[2023-01-17] MEDS: Divalproex Sodium Delayed-Release 500 MG Tab.CR PO SCH ×2 (09:17→20:09)
[2023-01-17] MEDS: Lacosamide 100 MG Tab PO SCH ×2 (09:17→20:08)
[2023-01-17] MEDS: hydrOXYzine HCl 25 MG Tab PO SCH ×2 (09:17→20:08)
[2023-01-17] MEDS: Sodium Chloride 1 GM Tab PO SCH ×2 (09:17→20:09)
[2023-01-17] MEDS: atorvaSTATin 40 MG Tab PO SCH (09:18)
[2023-01-17] MEDS: oxyCODONE 5 MG Tab PO SCH (09:18)
[2023-01-17] MEDS: Metoprolol Tartrate 25 MG Tab PO SCH ×2 (09:20→20:08)
[2023-01-17] MEDS: Lidocaine 4% 1 each Patch TOP PRN (09:29)
[2023-01-17] MEDS: Enoxaparin 40 MG/0.4 ML Syringe SUBCUT SCH (14:36)
[2023-01-17] MEDS: Clotrimazole 1% Crm 30 GM Tube TOP SCH ×2 (15:09→20:07)
[2023-01-17] MEDS: QUEtiapine 100 MG Tab PO SCH (20:08)
[2023-01-17] MEDS: Acetaminophen 325 MG Tab PO PRN (21:09)
[2023-01-18] MEDS: atorvaSTATin 40 MG Tab PO SCH (09:56)
[2023-01-18] MEDS: Clotrimazole 1% Crm 30 GM Tube TOP SCH ×2 (09:56→20:26)
[2023-01-18] MEDS: Metoprolol Tartrate 25 MG Tab PO SCH ×2 (09:56→20:29)
[2023-01-18] MEDS: levETIRAcetam 500 MG Tab PO SCH ×2 (09:56→20:29)
[2023-01-18] MEDS: Carboxymethylcellulose Sodium 1% Ophth Gel 15 ML Bottle EYEBOTH SCH ×3 (09:56→20:25)
[2023-01-18] MEDS: Lacosamide 100 MG Tab PO SCH ×2 (09:56→20:28)
[2023-01-18] MEDS: Sodium Chloride 1 GM Tab PO SCH ×2 (09:57→20:28)
[2023-01-18] MEDS: Divalproex Sodium Delayed-Release 500 MG Tab.CR PO SCH ×2 (09:57→20:29)
[2023-01-18] MEDS: Venlafaxine 37.5 MG Cap.ER PO SCH (09:57)
[2023-01-18] MEDS: oxyCODONE 5 MG Tab PO SCH (09:57)
[2023-01-18] MEDS: Simethicone 80 MG Tab.Chew PO SCH ×2 (09:58→20:28)
[2023-01-18] MEDS: hydrOXYzine HCl 25 MG Tab PO SCH ×2 (09:58→20:29)
[2023-01-18] MEDS: Sennosides 8.6 MG Tab PO SCH (09:58)
[2023-01-18] MEDS: Enoxaparin 40 MG/0.4 ML Syringe SUBCUT SCH (15:22)
[2023-01-18] MEDS: QUEtiapine 100 MG Tab PO SCH (20:28)
[2023-01-19] MEDS: levETIRAcetam 500 MG Tab PO SCH ×2 (09:28→20:27)
[2023-01-19] MEDS: Simethicone 80 MG Tab.Chew PO SCH ×2 (09:28→20:26)
[2023-01-19] MEDS: Venlafaxine 37.5 MG Cap.ER PO SCH (09:28)
[2023-01-19] MEDS: hydrOXYzine HCl 25 MG Tab PO SCH ×2 (09:29→20:28)
[2023-01-19] MEDS: Divalproex Sodium Delayed-Release 500 MG Tab.CR PO SCH ×2 (09:29→20:27)
[2023-01-19] MEDS: Lacosamide 100 MG Tab PO SCH ×2 (09:30→20:28)
[2023-01-19] MEDS: atorvaSTATin 40 MG Tab PO SCH (09:30)
[2023-01-19] MEDS: Sodium Chloride 1 GM Tab PO SCH ×2 (09:30→20:27)
[2023-01-19] MEDS: Sennosides 8.6 MG Tab PO SCH (09:30)
[2023-01-19] MEDS: oxyCODONE 5 MG Tab PO SCH (09:31)
[2023-01-19] MEDS: Metoprolol Tartrate 25 MG Tab PO SCH ×2 (09:31→20:28)
[2023-01-19] MEDS: Clotrimazole 1% Crm 30 GM Tube TOP SCH ×2 (09:32→20:26)
[2023-01-19] MEDS: Lidocaine 4% 1 each Patch TOP PRN (09:32)
[2023-01-19] MEDS: Carboxymethylcellulose Sodium 1% Ophth Gel 15 ML Bottle EYEBOTH SCH ×3 (09:32→20:25)
[2023-01-19] MEDS: Enoxaparin 40 MG/0.4 ML Syringe SUBCUT SCH (15:01)
[2023-01-19] MEDS: QUEtiapine 100 MG Tab PO SCH (20:28)
[2023-01-20] MEDS: Sennosides 8.6 MG Tab PO SCH (08:19)
[2023-01-20] MEDS: atorvaSTATin 40 MG Tab PO SCH (08:19)
[2023-01-20] MEDS: oxyCODONE 5 MG Tab PO SCH (08:19)
[2023-01-20] MEDS: Metoprolol Tartrate 25 MG Tab PO SCH ×2 (08:20→20:08)
[2023-01-20] MEDS: Simethicone 80 MG Tab.Chew PO SCH ×2 (08:20→20:08)
[2023-01-20] MEDS: Venlafaxine 37.5 MG Cap.ER PO SCH (08:20)
[2023-01-20] MEDS: Lacosamide 100 MG Tab PO SCH ×2 (08:21→20:09)
[2023-01-20] MEDS: Carboxymethylcellulose Sodium 1% Ophth Gel 15 ML Bottle EYEBOTH SCH ×3 (08:21→20:09)
[2023-01-20] MEDS: levETIRAcetam 500 MG Tab PO SCH ×2 (08:21→20:07)
[2023-01-20] MEDS: Divalproex Sodium Delayed-Release 500 MG Tab.CR PO SCH ×2 (08:21→20:05)
[2023-01-20] MEDS: Sodium Chloride 1 GM Tab PO SCH ×2 (08:21→20:07)
[2023-01-20] MEDS: hydrOXYzine HCl 25 MG Tab PO SCH ×2 (08:22→20:06)
[2023-01-20] MEDS: Clotrimazole 1% Crm 30 GM Tube TOP SCH ×2 (08:22→20:11)
[2023-01-20] MEDS: Enoxaparin 40 MG/0.4 ML Syringe SUBCUT SCH (14:07)
[2023-01-20] MEDS: Acetaminophen 325 MG Tab PO PRN (20:04)
[2023-01-20] MEDS: QUEtiapine 100 MG Tab PO SCH (20:06)
[2023-01-21] MEDS: Simethicone 80 MG Tab.Chew PO SCH ×2 (08:00→20:20)
[2023-01-21] MEDS: oxyCODONE 5 MG Tab PO SCH (08:00)
[2023-01-21] MEDS: Sennosides 8.6 MG Tab PO SCH (08:00)
[2023-01-21] MEDS: Lacosamide 100 MG Tab PO SCH ×2 (08:00→20:19)
[2023-01-21] MEDS: Metoprolol Tartrate 25 MG Tab PO SCH ×2 (08:01→21:34)
[2023-01-21] MEDS: Venlafaxine 37.5 MG Cap.ER PO SCH (08:01)
[2023-01-21] MEDS: Divalproex Sodium Delayed-Release 500 MG Tab.CR PO SCH ×2 (08:02→20:18)
[2023-01-21] MEDS: hydrOXYzine HCl 25 MG Tab PO SCH ×2 (08:02→20:19)
[2023-01-21] MEDS: atorvaSTATin 40 MG Tab PO SCH (08:03)
[2023-01-21] MEDS: Sodium Chloride 1 GM Tab PO SCH ×2 (08:03→20:20)
[2023-01-21] MEDS: Carboxymethylcellulose Sodium 1% Ophth Gel 15 ML Bottle EYEBOTH SCH ×3 (08:04→20:20)
[2023-01-21] MEDS: Clotrimazole 1% Crm 30 GM Tube TOP SCH ×2 (08:04→20:26)
[2023-01-21] MEDS: levETIRAcetam 500 MG Tab PO SCH ×2 (08:04→20:18)
[2023-01-21] MEDS: Enoxaparin 40 MG/0.4 ML Syringe SUBCUT SCH (14:22)
[2023-01-21] MEDS: QUEtiapine 100 MG Tab PO SCH (20:19)
[2023-01-21] MEDS: Acetaminophen 325 MG Tab PO PRN (20:27)
[2023-01-21] MEDS: LORazepam 0.5 MG Tab PO PRN (22:19)
[2023-01-22] MEDS: Lidocaine 4% 1 each Patch TOP PRN (07:55)
[2023-01-22] MEDS: Venlafaxine 37.5 MG Cap.ER PO SCH (08:00)
[2023-01-22] MEDS: Simethicone 80 MG Tab.Chew PO SCH ×2 (08:00→21:08)
[2023-01-22] MEDS: Sennosides 8.6 MG Tab PO SCH (08:01)
[2023-01-22] MEDS: Lacosamide 100 MG Tab PO SCH ×2 (08:01→21:07)
[2023-01-22] MEDS: levETIRAcetam 500 MG Tab PO SCH ×2 (08:01→21:08)
[2023-01-22] MEDS: Divalproex Sodium Delayed-Release 500 MG Tab.CR PO SCH ×2 (08:01→21:08)
[2023-01-22] MEDS: Metoprolol Tartrate 25 MG Tab PO SCH ×2 (08:02→21:09)
[2023-01-22] MEDS: oxyCODONE 5 MG Tab PO SCH (08:02)
[2023-01-22] MEDS: Sodium Chloride 1 GM Tab PO SCH ×2 (08:02→21:08)
[2023-01-22] MEDS: hydrOXYzine HCl 25 MG Tab PO SCH ×2 (08:02→21:07)
[2023-01-22] MEDS: atorvaSTATin 40 MG Tab PO SCH (08:02)
[2023-01-22] MEDS: Carboxymethylcellulose Sodium 1% Ophth Gel 15 ML Bottle EYEBOTH SCH ×3 (08:03→21:07)
[2023-01-22] MEDS: Clotrimazole 1% Crm 30 GM Tube TOP SCH ×2 (08:03→21:08)
[2023-01-22] MEDS: Enoxaparin 40 MG/0.4 ML Syringe SUBCUT SCH (14:32)
[2023-01-22] MEDS: QUEtiapine 100 MG Tab PO SCH (21:07)
[2023-01-23] MEDS: Simethicone 80 MG Tab.Chew PO SCH ×2 (08:51→20:11)
[2023-01-23] MEDS: Sennosides 8.6 MG Tab PO SCH (08:51)
[2023-01-23] MEDS: Venlafaxine 37.5 MG Cap.ER PO SCH (08:51)
[2023-01-23] MEDS: Divalproex Sodium Delayed-Release 500 MG Tab.CR PO SCH ×2 (08:51→20:12)
[2023-01-23] MEDS: Sodium Chloride 1 GM Tab PO SCH ×2 (08:51→20:11)
[2023-01-23] MEDS: hydrOXYzine HCl 25 MG Tab PO SCH ×2 (08:52→20:12)
[2023-01-23] MEDS: oxyCODONE 5 MG Tab PO SCH (08:52)
[2023-01-23] MEDS: Metoprolol Tartrate 25 MG Tab PO SCH ×2 (08:53→20:11)
[2023-01-23] MEDS: levETIRAcetam 500 MG Tab PO SCH ×2 (08:53→20:12)
[2023-01-23] MEDS: atorvaSTATin 40 MG Tab PO SCH (08:53)
[2023-01-23] MEDS: Clotrimazole 1% Crm 30 GM Tube TOP SCH ×2 (08:53→20:13)
[2023-01-23] MEDS: Lacosamide 100 MG Tab PO SCH ×2 (08:53→20:12)
[2023-01-23] MEDS: Carboxymethylcellulose Sodium 1% Ophth Gel 15 ML Bottle EYEBOTH SCH ×3 (08:58→20:13)
[2023-01-23] MEDS: Lidocaine 4% 1 each Patch TOP PRN (08:58)
[2023-01-23] MEDS: Enoxaparin 40 MG/0.4 ML Syringe SUBCUT SCH (15:46)
[2023-01-23] MEDS: QUEtiapine 100 MG Tab PO SCH (20:12)
[2023-01-23] MEDS: LORazepam 0.5 MG Tab PO PRN (21:58)
[2023-01-24] MEDS: Simethicone 80 MG Tab.Chew PO SCH (08:26)
[2023-01-24] MEDS: Lacosamide 100 MG Tab PO SCH (08:27)
[2023-01-24] MEDS: Venlafaxine 37.5 MG Cap.ER PO SCH (08:27)
[2023-01-24] MEDS: Sodium Chloride 1 GM Tab PO SCH (08:28)
[2023-01-24] MEDS: atorvaSTATin 40 MG Tab PO SCH (08:30)
[2023-01-24] MEDS: hydrOXYzine HCl 25 MG Tab PO SCH (08:30)
[2023-01-24] MEDS: Sennosides 8.6 MG Tab PO SCH (08:30)
[2023-01-24] MEDS: levETIRAcetam 500 MG Tab PO SCH (08:30)
[2023-01-24] MEDS: Metoprolol Tartrate 25 MG Tab PO SCH (08:32)
[2023-01-24] MEDS: oxyCODONE 5 MG Tab PO SCH (08:34)
[2023-01-24] MEDS: Divalproex Sodium Delayed-Release 500 MG Tab.CR PO SCH ×2 (08:34→20:10)
[2023-01-24] MEDS: Carboxymethylcellulose Sodium 1% Ophth Gel 15 ML Bottle EYEBOTH SCH ×3 (08:36→20:11)
[2023-01-24] MEDS: Clotrimazole 1% Crm 30 GM Tube TOP SCH ×2 (08:38→20:10)
[2023-01-24] MEDS: Lidocaine 4% 1 each Patch TOP PRN (08:44)
[2023-01-24] MEDS: Enoxaparin 40 MG/0.4 ML Syringe SUBCUT SCH (19:21)
[2023-01-24] MEDS: QUEtiapine 100 MG Tab PO SCH (20:10)
[2023-01-24] MEDS: Acetaminophen 325 MG Tab PO PRN (20:19)
[2023-01-25] MEDS: Divalproex Sodium Delayed-Release 500 MG Tab.CR PO SCH ×2 (08:19→20:00)
[2023-01-25] MEDS: Venlafaxine 37.5 MG Cap.ER PO SCH (08:20)
[2023-01-25] MEDS: atorvaSTATin 40 MG Tab PO SCH (08:21)
[2023-01-25] MEDS: oxyCODONE 5 MG Tab PO SCH (08:22)
[2023-01-25] MEDS: Carboxymethylcellulose Sodium 1% Ophth Gel 15 ML Bottle EYEBOTH SCH ×3 (08:23→20:00)
[2023-01-25] MEDS: Sennosides 8.6 MG Tab PO SCH (08:25)
[2023-01-25] MEDS: Clotrimazole 1% Crm 30 GM Tube TOP SCH ×2 (08:27→20:00)
[2023-01-25] MEDS: Lidocaine 4% 1 each Patch TOP PRN (08:31)
[2023-01-25] MEDS: Enoxaparin 40 MG/0.4 ML Syringe SUBCUT SCH (14:05)
[2023-01-25] MEDS: LORazepam 0.5 MG Tab PO PRN (19:45)
[2023-01-25] MEDS: Acetaminophen 325 MG Tab PO PRN (19:46)
[2023-01-25] MEDS: QUEtiapine 100 MG Tab PO SCH (20:00)
[2023-01-26] MEDS: Venlafaxine 37.5 MG Cap.ER PO SCH (08:23)
[2023-01-26] MEDS: oxyCODONE 5 MG Tab PO SCH (08:23)
[2023-01-26] MEDS: atorvaSTATin 40 MG Tab PO SCH (08:23)
[2023-01-26] MEDS: Lidocaine 4% 1 each Patch TOP PRN (08:23)
[2023-01-26] MEDS: Divalproex Sodium Delayed-Release 500 MG Tab.CR PO SCH ×2 (08:24→20:03)
[2023-01-26] MEDS: Clotrimazole 1% Crm 30 GM Tube TOP SCH ×2 (08:24→20:07)
[2023-01-26] MEDS: Carboxymethylcellulose Sodium 1% Ophth Gel 15 ML Bottle EYEBOTH SCH ×3 (08:24→20:07)
[2023-01-26] MEDS: Enoxaparin 40 MG/0.4 ML Syringe SUBCUT SCH (15:26)
[2023-01-26] MEDS: QUEtiapine 100 MG Tab PO SCH (20:04)
[2023-01-26] MEDS: LORazepam 0.5 MG Tab PO PRN (20:04)
[2023-01-27] MEDS ORDERED: Sennosides 8.6 MG Tab PO PRN (08:28)
[2023-01-27] MEDS: levETIRAcetam 500 MG Tab PO SCH ×2 (08:50→20:04)
[2023-01-27] MEDS: Divalproex Sodium Delayed-Release 500 MG Tab.CR PO SCH ×2 (08:50→20:02)
[2023-01-27] MEDS: Sennosides 8.6 MG Tab PO SCH (08:50)
[2023-01-27] MEDS: Simethicone 80 MG Tab.Chew PO SCH ×2 (08:50→20:04)
[2023-01-27] MEDS: Sodium Chloride 1 GM Tab PO SCH ×2 (08:50→20:02)
[2023-01-27] MEDS: atorvaSTATin 40 MG Tab PO SCH (08:50)
[2023-01-27] MEDS: Metoprolol Tartrate 25 MG Tab PO SCH ×2 (08:51→20:05)
[2023-01-27] MEDS: Lacosamide 100 MG Tab PO SCH ×2 (08:51→20:05)
[2023-01-27] MEDS: Venlafaxine 37.5 MG Cap.ER PO SCH (08:51)
[2023-01-27] MEDS: hydrOXYzine HCl 25 MG Tab PO SCH ×2 (08:51→20:04)
[2023-01-27] MEDS: oxyCODONE 5 MG Tab PO SCH (08:51)
[2023-01-27] MEDS: Clotrimazole 1% Crm 30 GM Tube TOP SCH ×2 (08:56→20:09)
[2023-01-27] MEDS: Carboxymethylcellulose Sodium 1% Ophth Gel 15 ML Bottle EYEBOTH SCH ×3 (08:57→20:10)
[2023-01-27] MEDS: Lidocaine 4% 1 each Patch TOP PRN (08:59)
[2023-01-27] MEDS: Enoxaparin 40 MG/0.4 ML Syringe SUBCUT SCH (14:47)
[2023-01-27] MEDS: QUEtiapine 100 MG Tab PO SCH (20:05)
[2023-01-27] MEDS: LORazepam 0.5 MG Tab PO PRN (22:37)
[2023-01-28] MEDS: Metoprolol Tartrate 25 MG Tab PO SCH ×2 (08:14→20:07)
[2023-01-28] MEDS: atorvaSTATin 40 MG Tab PO SCH (08:15)
[2023-01-28] MEDS: Divalproex Sodium Delayed-Release 500 MG Tab.CR PO SCH ×2 (08:15→20:05)
[2023-01-28] MEDS: Simethicone 80 MG Tab.Chew PO SCH ×2 (08:15→20:05)
[2023-01-28] MEDS: Sodium Chloride 1 GM Tab PO SCH ×2 (08:15→20:06)
[2023-01-28] MEDS: hydrOXYzine HCl 25 MG Tab PO SCH ×2 (08:16→20:06)
[2023-01-28] MEDS: Lacosamide 100 MG Tab PO SCH ×2 (08:16→20:05)
[2023-01-28] MEDS: levETIRAcetam 500 MG Tab PO SCH ×2 (08:16→20:06)
[2023-01-28] MEDS: oxyCODONE 5 MG Tab PO SCH (08:16)
[2023-01-28] MEDS: Venlafaxine 37.5 MG Cap.ER PO SCH (08:16)
[2023-01-28] MEDS: Sennosides 8.6 MG Tab PO SCH (08:17)
[2023-01-28] MEDS: Clotrimazole 1% Crm 30 GM Tube TOP SCH ×2 (08:22→20:04)
[2023-01-28] MEDS: Carboxymethylcellulose Sodium 1% Ophth Gel 15 ML Bottle EYEBOTH SCH ×3 (08:22→20:04)
[2023-01-28] MEDS: Lidocaine 4% 1 each Patch TOP PRN (08:24)
[2023-01-28] MEDS: Enoxaparin 40 MG/0.4 ML Syringe SUBCUT SCH (15:51)
[2023-01-28] MEDS: QUEtiapine 100 MG Tab PO SCH (20:06)
[2023-01-28] MEDS: LORazepam 0.5 MG Tab PO PRN (20:17)
[2023-01-29] MEDS: Sodium Chloride 1 GM Tab PO SCH ×2 (09:00→20:02)
[2023-01-29] MEDS: Metoprolol Tartrate 25 MG Tab PO SCH ×2 (09:00→20:01)
[2023-01-29] MEDS: Clotrimazole 1% Crm 30 GM Tube TOP SCH ×3 (09:00→21:20)
[2023-01-29] MEDS ORDERED: Divalproex Sodium Delayed-Release 500 MG Tab.CR PO ONE (09:00)
[2023-01-29] MEDS: Carboxymethylcellulose Sodium 1% Ophth Gel 15 ML Bottle EYEBOTH SCH ×4 (09:00→21:20)
[2023-01-29] MEDS: atorvaSTATin 40 MG Tab PO SCH (09:15)
[2023-01-29] MEDS: hydrOXYzine HCl 25 MG Tab PO SCH ×2 (09:15→20:01)
[2023-01-29] MEDS: Venlafaxine 37.5 MG Cap.ER PO SCH (09:15)
[2023-01-29] MEDS: Lacosamide 100 MG Tab PO SCH ×2 (09:15→20:02)
[2023-01-29] MEDS: Sennosides 8.6 MG Tab PO SCH (09:15)
[2023-01-29] MEDS: levETIRAcetam 500 MG Tab PO SCH ×2 (09:16→20:01)
[2023-01-29] MEDS: oxyCODONE 5 MG Tab PO SCH (09:16)
[2023-01-29] MEDS: Divalproex Sodium Delayed-Release 500 MG Tab.CR PO SCH ×2 (09:16→20:01)
[2023-01-29] MEDS: Simethicone 80 MG Tab.Chew PO SCH ×2 (09:17→20:02)
[2023-01-29] MEDS: Enoxaparin 40 MG/0.4 ML Syringe SUBCUT SCH (14:45)
[2023-01-29] MEDS: QUEtiapine 100 MG Tab PO SCH (20:02)
[2023-01-30] MEDS: Carboxymethylcellulose Sodium 1% Ophth Gel 15 ML Bottle EYEBOTH SCH ×3 (08:00→20:00)
[2023-01-30] MEDS: Clotrimazole 1% Crm 30 GM Tube TOP SCH ×2 (08:00→20:00)
[2023-01-30] MEDS: Lacosamide 100 MG Tab PO SCH ×2 (08:01→20:01)
[2023-01-30] MEDS: Venlafaxine 37.5 MG Cap.ER PO SCH (08:01)
[2023-01-30] MEDS: Divalproex Sodium Delayed-Release 500 MG Tab.CR PO SCH ×2 (08:01→20:01)
[2023-01-30] MEDS: Metoprolol Tartrate 25 MG Tab PO SCH ×2 (08:01→20:02)
[2023-01-30] MEDS: Sodium Chloride 1 GM Tab PO SCH ×2 (08:02→20:01)
[2023-01-30] MEDS: atorvaSTATin 40 MG Tab PO SCH (08:02)
[2023-01-30] MEDS: Sennosides 8.6 MG Tab PO SCH (08:02)
[2023-01-30] MEDS: Simethicone 80 MG Tab.Chew PO SCH ×2 (08:02→20:02)
[2023-01-30] MEDS: levETIRAcetam 500 MG Tab PO SCH ×2 (08:02→20:01)
[2023-01-30] MEDS: oxyCODONE 5 MG Tab PO SCH (08:02)
[2023-01-30] MEDS: hydrOXYzine HCl 25 MG Tab PO SCH ×2 (08:03→20:03)
[2023-01-30] MEDS: Enoxaparin 40 MG/0.4 ML Syringe SUBCUT SCH (16:26)
[2023-01-30] MEDS: QUEtiapine 100 MG Tab PO SCH (20:03)
[2023-01-31] MEDS: Divalproex Sodium Delayed-Release 500 MG Tab.CR PO SCH ×2 (08:34→20:14)
[2023-01-31] MEDS: hydrOXYzine HCl 25 MG Tab PO SCH ×2 (08:34→20:13)
[2023-01-31] MEDS: atorvaSTATin 40 MG Tab PO SCH (08:34)
[2023-01-31] MEDS: levETIRAcetam 500 MG Tab PO SCH ×2 (08:34→20:12)
[2023-01-31] MEDS: Venlafaxine 37.5 MG Cap.ER PO SCH (08:34)
[2023-01-31] MEDS: Lacosamide 100 MG Tab PO SCH ×2 (08:34→20:13)
[2023-01-31] MEDS: oxyCODONE 5 MG Tab PO SCH (08:35)
[2023-01-31] MEDS: Clotrimazole 1% Crm 30 GM Tube TOP SCH ×2 (08:35→20:17)
[2023-01-31] MEDS: Simethicone 80 MG Tab.Chew PO SCH ×2 (08:35→20:16)
[2023-01-31] MEDS: Sodium Chloride 1 GM Tab PO SCH ×2 (08:35→21:11)
[2023-01-31] MEDS: Carboxymethylcellulose Sodium 1% Ophth Gel 15 ML Bottle EYEBOTH SCH ×3 (08:35→21:47)
[2023-01-31] MEDS: Sennosides 8.6 MG Tab PO SCH (08:35)
[2023-01-31] MEDS: Metoprolol Tartrate 25 MG Tab PO SCH ×2 (08:36→20:13)
[2023-01-31] MEDS: Enoxaparin 40 MG/0.4 ML Syringe SUBCUT SCH (15:30)
[2023-01-31] MEDS: QUEtiapine 100 MG Tab PO SCH (20:13)
[2023-01-31] MEDS: Carboxymethylcellulose Sodium 1% Ophth Gel 15 ML Bottle EYEBOTH PRN (20:18)
[2023-01-31] MEDS: Acetaminophen 325 MG Tab PO PRN (21:10)
[2023-02-01] MEDS: Simethicone 80 MG Tab.Chew PO SCH ×2 (10:20→20:48)
[2023-02-01] MEDS: levETIRAcetam 500 MG Tab PO SCH ×2 (10:20→20:45)
[2023-02-01] MEDS: Lidocaine 4% 1 each Patch TOP PRN (10:20)
[2023-02-01] MEDS: Lacosamide 100 MG Tab PO SCH ×2 (10:21→20:47)
[2023-02-01] MEDS: oxyCODONE 5 MG Tab PO SCH (10:21)
[2023-02-01] MEDS: Sennosides 8.6 MG Tab PO SCH (10:21)
[2023-02-01] MEDS: Sodium Chloride 1 GM Tab PO SCH ×2 (10:22→20:49)
[2023-02-01] MEDS: Venlafaxine 37.5 MG Cap.ER PO SCH (10:22)
[2023-02-01] MEDS: atorvaSTATin 40 MG Tab PO SCH (10:22)
[2023-02-01] MEDS: hydrOXYzine HCl 25 MG Tab PO SCH ×2 (10:22→20:43)
[2023-02-01] MEDS: Clotrimazole 1% Crm 30 GM Tube TOP SCH ×2 (10:23→20:46)
[2023-02-01] MEDS: Divalproex Sodium Delayed-Release 500 MG Tab.CR PO SCH ×2 (10:23→20:44)
[2023-02-01] MEDS: Carboxymethylcellulose Sodium 1% Ophth Gel 15 ML Bottle EYEBOTH SCH ×3 (10:24→20:46)
[2023-02-01] MEDS: Metoprolol Tartrate 25 MG Tab PO SCH ×2 (10:28→20:45)
[2023-02-01] MEDS: Enoxaparin 40 MG/0.4 ML Syringe SUBCUT SCH (15:04)
[2023-02-01] MEDS: QUEtiapine 100 MG Tab PO SCH (20:48)
[2023-02-02] MEDS: levETIRAcetam 500 MG Tab PO SCH ×2 (09:36→20:39)
[2023-02-02] MEDS: atorvaSTATin 40 MG Tab PO SCH (09:37)
[2023-02-02] MEDS: Divalproex Sodium Delayed-Release 500 MG Tab.CR PO SCH ×2 (09:37→20:38)
[2023-02-02] MEDS: Metoprolol Tartrate 25 MG Tab PO SCH ×2 (09:37→20:39)
[2023-02-02] MEDS: oxyCODONE 5 MG Tab PO SCH (09:38)
[2023-02-02] MEDS: Lacosamide 100 MG Tab PO SCH ×2 (09:39→20:39)
[2023-02-02] MEDS: Venlafaxine 37.5 MG Cap.ER PO SCH (09:39)
[2023-02-02] MEDS: Sennosides 8.6 MG Tab PO SCH (09:39)
[2023-02-02] MEDS: Sodium Chloride 1 GM Tab PO SCH ×2 (09:41→20:39)
[2023-02-02] MEDS: hydrOXYzine HCl 25 MG Tab PO SCH ×2 (09:42→20:39)
[2023-02-02] MEDS: Simethicone 80 MG Tab.Chew PO SCH ×2 (09:42→20:38)
[2023-02-02] MEDS: Carboxymethylcellulose Sodium 1% Ophth Gel 15 ML Bottle EYEBOTH SCH ×3 (09:43→20:40)
[2023-02-02] MEDS: Clotrimazole 1% Crm 30 GM Tube TOP SCH ×2 (09:43→20:40)
[2023-02-02] MEDS: Lidocaine 4% 1 each Patch TOP PRN (10:19)
[2023-02-02] MEDS: Carboxymethylcellulose Sodium 1% Ophth Gel 15 ML Bottle EYEBOTH PRN (16:02)
[2023-02-02] MEDS: Enoxaparin 40 MG/0.4 ML Syringe SUBCUT SCH (16:03)
[2023-02-02] MEDS: QUEtiapine 100 MG Tab PO SCH (20:39)
[2023-02-03] MEDS: Clotrimazole 1% Crm 30 GM Tube TOP SCH ×2 (07:59→20:30)
[2023-02-03] MEDS: Lidocaine 4% 1 each Patch TOP PRN (07:59)
[2023-02-03] MEDS: Carboxymethylcellulose Sodium 1% Ophth Gel 15 ML Bottle EYEBOTH SCH ×3 (08:00→20:30)
[2023-02-03] MEDS: Simethicone 80 MG Tab.Chew PO SCH ×2 (08:00→20:29)
[2023-02-03] MEDS: Divalproex Sodium Delayed-Release 500 MG Tab.CR PO SCH ×2 (08:01→20:29)
[2023-02-03] MEDS: oxyCODONE 5 MG Tab PO SCH (08:01)
[2023-02-03] MEDS: Metoprolol Tartrate 25 MG Tab PO SCH ×2 (08:01→20:28)
[2023-02-03] MEDS: hydrOXYzine HCl 25 MG Tab PO SCH ×2 (08:01→20:28)
[2023-02-03] MEDS: Sodium Chloride 1 GM Tab PO SCH ×2 (08:01→20:28)
[2023-02-03] MEDS: Sennosides 8.6 MG Tab PO SCH (08:02)
[2023-02-03] MEDS: Lacosamide 100 MG Tab PO SCH ×2 (08:02→20:27)
[2023-02-03] MEDS: atorvaSTATin 40 MG Tab PO SCH (08:02)
[2023-02-03] MEDS: Venlafaxine 37.5 MG Cap.ER PO SCH (08:02)
[2023-02-03] MEDS: levETIRAcetam 500 MG Tab PO SCH ×2 (08:02→20:28)
[2023-02-03] MEDS: Enoxaparin 40 MG/0.4 ML Syringe SUBCUT SCH (15:30)
[2023-02-03] MEDS: QUEtiapine 100 MG Tab PO SCH (20:28)
[2023-02-04] MEDS: Lacosamide 100 MG Tab PO SCH ×3 (08:08→23:24)
[2023-02-04] MEDS: Divalproex Sodium Delayed-Release 500 MG Tab.CR PO SCH ×3 (08:08→23:23)
[2023-02-04] MEDS: Sennosides 8.6 MG Tab PO SCH (08:08)
[2023-02-04] MEDS: Simethicone 80 MG Tab.Chew PO SCH ×3 (08:08→23:23)
[2023-02-04] MEDS: Sodium Chloride 1 GM Tab PO SCH ×3 (08:09→23:24)
[2023-02-04] MEDS: Metoprolol Tartrate 25 MG Tab PO SCH ×3 (08:09→23:23)
[2023-02-04] MEDS: atorvaSTATin 40 MG Tab PO SCH (08:09)
[2023-02-04] MEDS: Venlafaxine 37.5 MG Cap.ER PO SCH (08:09)
[2023-02-04] MEDS: hydrOXYzine HCl 25 MG Tab PO SCH ×3 (08:10→23:23)
[2023-02-04] MEDS: Lidocaine 4% 1 each Patch TOP PRN (08:10)
[2023-02-04] MEDS: Clotrimazole 1% Crm 30 GM Tube TOP SCH ×3 (08:10→23:23)
[2023-02-04] MEDS: levETIRAcetam 500 MG Tab PO SCH ×3 (08:10→23:23)
[2023-02-04] MEDS: oxyCODONE 5 MG Tab PO SCH (08:10)
[2023-02-04] MEDS: Carboxymethylcellulose Sodium 1% Ophth Gel 15 ML Bottle EYEBOTH SCH ×4 (08:11→23:23)
[2023-02-04] MEDS: Enoxaparin 40 MG/0.4 ML Syringe SUBCUT SCH (14:21)
[2023-02-04] MEDS: LORazepam 0.5 MG Tab PO PRN (19:49)
[2023-02-04] MEDS: QUEtiapine 100 MG Tab PO SCH ×2 (19:50→23:23)
[2023-02-05] MEDS: hydrOXYzine HCl 25 MG Tab PO SCH ×2 (10:06→21:23)
[2023-02-05] MEDS: levETIRAcetam 500 MG Tab PO SCH ×2 (10:07→21:21)
[2023-02-05] MEDS: Lacosamide 100 MG Tab PO SCH ×2 (10:07→21:21)
[2023-02-05] MEDS: Divalproex Sodium Delayed-Release 500 MG Tab.CR PO SCH ×2 (10:07→21:23)
[2023-02-05] MEDS: Sodium Chloride 1 GM Tab PO SCH ×2 (10:07→21:21)
[2023-02-05] MEDS: oxyCODONE 5 MG Tab PO SCH (10:08)
[2023-02-05] MEDS: Metoprolol Tartrate 25 MG Tab PO SCH ×2 (10:08→21:24)
[2023-02-05] MEDS: Venlafaxine 37.5 MG Cap.ER PO SCH (10:09)
[2023-02-05] MEDS: Sennosides 8.6 MG Tab PO SCH (10:09)
[2023-02-05] MEDS: Carboxymethylcellulose Sodium 1% Ophth Gel 15 ML Bottle EYEBOTH SCH ×3 (10:09→21:23)
[2023-02-05] MEDS: atorvaSTATin 40 MG Tab PO SCH (10:09)
[2023-02-05] MEDS: Simethicone 80 MG Tab.Chew PO SCH ×2 (10:09→21:20)
[2023-02-05] MEDS: Lidocaine 4% 1 each Patch TOP PRN (10:10)
[2023-02-05] MEDS: Clotrimazole 1% Crm 30 GM Tube TOP SCH ×2 (10:10→21:23)
[2023-02-05] MEDS: Acetaminophen 325 MG Tab PO PRN ×2 (10:47→21:20)
[2023-02-05] MEDS: Enoxaparin 40 MG/0.4 ML Syringe SUBCUT SCH (16:13)
[2023-02-05] MEDS: LORazepam 0.5 MG Tab PO PRN (21:21)
[2023-02-05] MEDS: QUEtiapine 100 MG Tab PO SCH (21:21)
[2023-02-06] MEDS: Carboxymethylcellulose Sodium 1% Ophth Gel 15 ML Bottle EYEBOTH SCH ×3 (08:09→20:10)
[2023-02-06] MEDS: Lidocaine 4% 1 each Patch TOP PRN (08:09)
[2023-02-06] MEDS: Clotrimazole 1% Crm 30 GM Tube TOP SCH ×2 (08:09→20:10)
[2023-02-06] MEDS: hydrOXYzine HCl 25 MG Tab PO SCH ×2 (08:10→20:08)
[2023-02-06] MEDS: Metoprolol Tartrate 25 MG Tab PO SCH ×2 (08:11→20:09)
[2023-02-06] MEDS: oxyCODONE 5 MG Tab PO SCH (08:11)
[2023-02-06] MEDS: Lacosamide 100 MG Tab PO SCH ×2 (08:11→20:10)
[2023-02-06] MEDS: Divalproex Sodium Delayed-Release 500 MG Tab.CR PO SCH ×2 (08:11→20:09)
[2023-02-06] MEDS: Sennosides 8.6 MG Tab PO SCH (08:12)
[2023-02-06] MEDS: Simethicone 80 MG Tab.Chew PO SCH ×2 (08:12→20:08)
[2023-02-06] MEDS: Venlafaxine 37.5 MG Cap.ER PO SCH (08:12)
[2023-02-06] MEDS: levETIRAcetam 500 MG Tab PO SCH ×2 (08:12→20:10)
[2023-02-06] MEDS: Sodium Chloride 1 GM Tab PO SCH ×2 (08:12→20:10)
[2023-02-06] MEDS: atorvaSTATin 40 MG Tab PO SCH (08:12)
[2023-02-06] MEDS: Enoxaparin 40 MG/0.4 ML Syringe SUBCUT SCH (15:47)
[2023-02-06] MEDS: LORazepam 0.5 MG Tab PO PRN (20:10)
[2023-02-06] MEDS: QUEtiapine 100 MG Tab PO SCH (20:10)
[2023-02-07] MEDS: Clotrimazole 1% Crm 30 GM Tube TOP SCH ×2 (08:04→20:34)
[2023-02-07] MEDS: Carboxymethylcellulose Sodium 1% Ophth Gel 15 ML Bottle EYEBOTH SCH ×3 (08:05→20:33)
[2023-02-07] MEDS: Lacosamide 100 MG Tab PO SCH ×2 (08:05→20:32)
[2023-02-07] MEDS: Simethicone 80 MG Tab.Chew PO SCH ×2 (08:05→20:34)
[2023-02-07] MEDS: atorvaSTATin 40 MG Tab PO SCH (08:06)
[2023-02-07] MEDS: levETIRAcetam 500 MG Tab PO SCH ×2 (08:06→20:31)
[2023-02-07] MEDS: Sennosides 8.6 MG Tab PO SCH (08:06)
[2023-02-07] MEDS: Metoprolol Tartrate 25 MG Tab PO SCH ×2 (08:07→20:32)
[2023-02-07] MEDS: Sodium Chloride 1 GM Tab PO SCH ×2 (08:07→20:33)
[2023-02-07] MEDS: oxyCODONE 5 MG Tab PO SCH (08:07)
[2023-02-07] MEDS: Divalproex Sodium Delayed-Release 500 MG Tab.CR PO SCH ×2 (08:08→20:31)
[2023-02-07] MEDS: hydrOXYzine HCl 25 MG Tab PO SCH ×2 (08:08→20:30)
[2023-02-07] MEDS: Venlafaxine 37.5 MG Cap.ER PO SCH (08:09)
[2023-02-07] MEDS: Lidocaine 4% 1 each Patch TOP PRN (08:10)
[2023-02-07] MEDS: Enoxaparin 40 MG/0.4 ML Syringe SUBCUT SCH (16:17)
[2023-02-07] MEDS: QUEtiapine 100 MG Tab PO SCH (20:33)
[2023-02-08] MEDS: Lidocaine 4% 1 each Patch TOP PRN (08:33)
[2023-02-08] MEDS: Simethicone 80 MG Tab.Chew PO SCH ×2 (08:34→21:26)
[2023-02-08] MEDS: Venlafaxine 37.5 MG Cap.ER PO SCH (08:34)
[2023-02-08] MEDS: Sodium Chloride 1 GM Tab PO SCH ×2 (08:35→21:27)
[2023-02-08] MEDS: oxyCODONE 5 MG Tab PO SCH (08:35)
[2023-02-08] MEDS: Divalproex Sodium Delayed-Release 500 MG Tab.CR PO SCH ×2 (08:35→21:26)
[2023-02-08] MEDS: Metoprolol Tartrate 25 MG Tab PO SCH ×2 (08:35→21:28)
[2023-02-08] MEDS: levETIRAcetam 500 MG Tab PO SCH ×2 (08:36→21:27)
[2023-02-08] MEDS: hydrOXYzine HCl 25 MG Tab PO SCH ×2 (08:36→21:28)
[2023-02-08] MEDS: Sennosides 8.6 MG Tab PO SCH (08:36)
[2023-02-08] MEDS: Lacosamide 100 MG Tab PO SCH ×2 (08:36→21:27)
[2023-02-08] MEDS: Carboxymethylcellulose Sodium 1% Ophth Gel 15 ML Bottle EYEBOTH SCH ×3 (08:36→21:29)
[2023-02-08] MEDS: atorvaSTATin 40 MG Tab PO SCH (08:36)
[2023-02-08] MEDS: Clotrimazole 1% Crm 30 GM Tube TOP SCH ×2 (08:36→21:29)
[2023-02-08] MEDS: Enoxaparin 40 MG/0.4 ML Syringe SUBCUT SCH (15:38)
[2023-02-08] MEDS: QUEtiapine 100 MG Tab PO SCH (21:28)
[2023-02-09] MEDS ORDERED: Polyethylene Glycol 3350 Powder 17 GM Packet PO PRN (08:07)
[2023-02-09] MEDS ORDERED: Sennosides/Docusate Sodium 50-8.6 MG Tab PO PRN (08:07)
[2023-02-09] MEDS: Carboxymethylcellulose Sodium 1% Ophth Gel 15 ML Bottle EYEBOTH SCH ×3 (09:11→20:46)
[2023-02-09] MEDS: Clotrimazole 1% Crm 30 GM Tube TOP SCH ×2 (09:11→20:46)
[2023-02-09] MEDS: atorvaSTATin 40 MG Tab PO SCH (09:12)
[2023-02-09] MEDS: Sodium Chloride 1 GM Tab PO SCH ×2 (09:12→20:45)
[2023-02-09] MEDS: Sennosides 8.6 MG Tab PO SCH (09:12)
[2023-02-09] MEDS: Venlafaxine 37.5 MG Cap.ER PO SCH (09:12)
[2023-02-09] MEDS: Divalproex Sodium Delayed-Release 500 MG Tab.CR PO SCH ×2 (09:12→20:46)
[2023-02-09] MEDS: levETIRAcetam 500 MG Tab PO SCH ×2 (09:12→20:44)
[2023-02-09] MEDS: Lacosamide 100 MG Tab PO SCH ×2 (09:12→20:46)
[2023-02-09] MEDS: hydrOXYzine HCl 25 MG Tab PO SCH ×2 (09:12→20:45)
[2023-02-09] MEDS: Metoprolol Tartrate 25 MG Tab PO SCH ×2 (09:13→20:45)
[2023-02-09] MEDS: oxyCODONE 5 MG Tab PO SCH (09:13)
[2023-02-09] MEDS: Simethicone 80 MG Tab.Chew PO SCH ×2 (09:14→20:44)
[2023-02-09] MEDS: Lidocaine 4% 1 each Patch TOP PRN (09:14)
[2023-02-09] MEDS: Enoxaparin 40 MG/0.4 ML Syringe SUBCUT SCH (15:44)
[2023-02-09] MEDS: QUEtiapine 100 MG Tab PO SCH (20:45)
[2023-02-10] MEDS: Clotrimazole 1% Crm 30 GM Tube TOP SCH ×2 (08:02→20:42)
[2023-02-10] MEDS: Sodium Chloride 1 GM Tab PO SCH ×2 (08:05→20:41)
[2023-02-10] MEDS: levETIRAcetam 500 MG Tab PO SCH ×2 (08:05→20:39)
[2023-02-10] MEDS: Sennosides 8.6 MG Tab PO SCH (08:05)
[2023-02-10] MEDS: Venlafaxine 37.5 MG Cap.ER PO SCH (08:05)
[2023-02-10] MEDS: atorvaSTATin 40 MG Tab PO SCH (08:07)
[2023-02-10] MEDS: hydrOXYzine HCl 25 MG Tab PO SCH ×2 (08:07→20:40)
[2023-02-10] MEDS: Lacosamide 100 MG Tab PO SCH ×2 (08:08→20:40)
[2023-02-10] MEDS: Divalproex Sodium Delayed-Release 500 MG Tab.CR PO SCH ×2 (08:08→20:42)
[2023-02-10] MEDS: Simethicone 80 MG Tab.Chew PO SCH ×2 (08:10→20:41)
[2023-02-10] MEDS: Metoprolol Tartrate 25 MG Tab PO SCH ×2 (08:15→20:40)
[2023-02-10] MEDS: Carboxymethylcellulose Sodium 1% Ophth Gel 15 ML Bottle EYEBOTH SCH ×3 (08:16→20:42)
[2023-02-10] MEDS: oxyCODONE 5 MG Tab PO SCH (08:16)
[2023-02-10] MEDS: Lidocaine 4% 1 each Patch TOP PRN (12:38)
[2023-02-10] MEDS: Enoxaparin 40 MG/0.4 ML Syringe SUBCUT SCH (14:49)
[2023-02-10] MEDS: QUEtiapine 100 MG Tab PO SCH (20:40)
[2023-02-11] MEDS: Lacosamide 100 MG Tab PO SCH ×2 (08:47→20:33)
[2023-02-11] MEDS: Divalproex Sodium Delayed-Release 500 MG Tab.CR PO SCH ×2 (08:47→20:33)
[2023-02-11] MEDS: Venlafaxine 37.5 MG Cap.ER PO SCH (08:48)
[2023-02-11] MEDS: levETIRAcetam 500 MG Tab PO SCH ×2 (08:48→20:33)
[2023-02-11] MEDS: Sennosides 8.6 MG Tab PO SCH (08:48)
[2023-02-11] MEDS: atorvaSTATin 40 MG Tab PO SCH (08:49)
[2023-02-11] MEDS: Metoprolol Tartrate 25 MG Tab PO SCH ×2 (08:49→20:32)
[2023-02-11] MEDS: hydrOXYzine HCl 25 MG Tab PO SCH ×2 (08:49→20:31)
[2023-02-11] MEDS: oxyCODONE 5 MG Tab PO SCH (08:50)
[2023-02-11] MEDS: Sodium Chloride 1 GM Tab PO SCH ×2 (08:51→20:31)
[2023-02-11] MEDS: Simethicone 80 MG Tab.Chew PO SCH ×2 (08:51→20:34)
[2023-02-11] MEDS: Carboxymethylcellulose Sodium 1% Ophth Gel 15 ML Bottle EYEBOTH SCH ×3 (08:52→20:34)
[2023-02-11] MEDS: Clotrimazole 1% Crm 30 GM Tube TOP SCH ×2 (08:52→20:34)
[2023-02-11] MEDS: Lidocaine 4% 1 each Patch TOP PRN (09:06)
[2023-02-11] MEDS: Enoxaparin 40 MG/0.4 ML Syringe SUBCUT SCH (14:20)
[2023-02-11] MEDS: QUEtiapine 100 MG Tab PO SCH (20:31)
[2023-02-12] MEDS: Lacosamide 100 MG Tab PO SCH ×2 (10:52→21:01)
[2023-02-12] MEDS: levETIRAcetam 500 MG Tab PO SCH ×2 (10:52→21:02)
[2023-02-12] MEDS: Carboxymethylcellulose Sodium 1% Ophth Gel 15 ML Bottle EYEBOTH SCH ×3 (10:52→21:04)
[2023-02-12] MEDS: Venlafaxine 37.5 MG Cap.ER PO SCH (10:52)
[2023-02-12] MEDS: Lidocaine 4% 1 each Patch TOP PRN (10:52)
[2023-02-12] MEDS: Sennosides 8.6 MG Tab PO SCH (10:53)
[2023-02-12] MEDS: atorvaSTATin 40 MG Tab PO SCH (10:53)
[2023-02-12] MEDS: oxyCODONE 5 MG Tab PO SCH (10:53)
[2023-02-12] MEDS: Sodium Chloride 1 GM Tab PO SCH ×2 (10:53→21:03)
[2023-02-12] MEDS: hydrOXYzine HCl 25 MG Tab PO SCH ×2 (10:53→21:02)
[2023-02-12] MEDS: Clotrimazole 1% Crm 30 GM Tube TOP SCH ×2 (10:54→21:04)
[2023-02-12] MEDS: Metoprolol Tartrate 25 MG Tab PO SCH ×2 (10:54→21:03)
[2023-02-12] MEDS: Simethicone 80 MG Tab.Chew PO SCH ×2 (10:55→21:03)
[2023-02-12] MEDS: Divalproex Sodium Delayed-Release 500 MG Tab.CR PO SCH ×2 (10:55→21:02)
[2023-02-12] MEDS: Enoxaparin 40 MG/0.4 ML Syringe SUBCUT SCH (14:59)
[2023-02-12] MEDS: LORazepam 0.5 MG Tab PO PRN (21:01)
[2023-02-12] MEDS: QUEtiapine 100 MG Tab PO SCH (21:02)
[2023-02-12] MEDS: Acetaminophen 325 MG Tab PO PRN (21:03)
[2023-02-13] MEDS: Divalproex Sodium Delayed-Release 500 MG Tab.CR PO SCH ×2 (10:04→20:20)
[2023-02-13] MEDS: Metoprolol Tartrate 25 MG Tab PO SCH ×2 (10:05→20:20)
[2023-02-13] MEDS: oxyCODONE 5 MG Tab PO SCH (10:05)
[2023-02-13] MEDS: levETIRAcetam 500 MG Tab PO SCH ×2 (10:06→20:20)
[2023-02-13] MEDS: Venlafaxine 37.5 MG Cap.ER PO SCH (10:06)
[2023-02-13] MEDS: hydrOXYzine HCl 25 MG Tab PO SCH ×2 (10:06→20:20)
[2023-02-13] MEDS: Lacosamide 100 MG Tab PO SCH ×2 (10:06→20:20)
[2023-02-13] MEDS: Sennosides 8.6 MG Tab PO SCH (10:06)
[2023-02-13] MEDS: Sodium Chloride 1 GM Tab PO SCH ×2 (10:07→20:20)
[2023-02-13] MEDS: atorvaSTATin 40 MG Tab PO SCH (10:07)
[2023-02-13] MEDS: Simethicone 80 MG Tab.Chew PO SCH ×2 (10:07→20:21)
[2023-02-13] MEDS: Clotrimazole 1% Crm 30 GM Tube TOP SCH ×2 (10:08→20:21)
[2023-02-13] MEDS: Carboxymethylcellulose Sodium 1% Ophth Gel 15 ML Bottle EYEBOTH SCH ×3 (10:08→20:21)
[2023-02-13] MEDS: Enoxaparin 40 MG/0.4 ML Syringe SUBCUT SCH (15:18)
[2023-02-13] MEDS: QUEtiapine 100 MG Tab PO SCH (20:20)
[2023-02-14] MEDS: Carboxymethylcellulose Sodium 1% Ophth Gel 15 ML Bottle EYEBOTH SCH ×3 (07:59→20:37)
[2023-02-14] MEDS: Clotrimazole 1% Crm 30 GM Tube TOP SCH ×2 (07:59→20:36)
[2023-02-14] MEDS: Lidocaine 4% 1 each Patch TOP PRN (07:59)
[2023-02-14] MEDS: hydrOXYzine HCl 25 MG Tab PO SCH ×2 (08:01→20:33)
[2023-02-14] MEDS: Venlafaxine 37.5 MG Cap.ER PO SCH (08:01)
[2023-02-14] MEDS: Sennosides 8.6 MG Tab PO SCH (08:01)
[2023-02-14] MEDS: Lacosamide 100 MG Tab PO SCH ×2 (08:02→20:32)
[2023-02-14] MEDS: Metoprolol Tartrate 25 MG Tab PO SCH ×2 (08:02→20:35)
[2023-02-14] MEDS: Sodium Chloride 1 GM Tab PO SCH ×2 (08:02→20:31)
[2023-02-14] MEDS: oxyCODONE 5 MG Tab PO SCH (08:02)
[2023-02-14] MEDS: levETIRAcetam 500 MG Tab PO SCH ×2 (08:03→20:30)
[2023-02-14] MEDS: atorvaSTATin 40 MG Tab PO SCH (08:03)
[2023-02-14] MEDS: Divalproex Sodium Delayed-Release 500 MG Tab.CR PO SCH ×2 (08:03→20:30)
[2023-02-14] MEDS: Simethicone 80 MG Tab.Chew PO SCH ×2 (08:03→20:33)
[2023-02-14] MEDS: Enoxaparin 40 MG/0.4 ML Syringe SUBCUT SCH (14:24)
[2023-02-14] MEDS: QUEtiapine 100 MG Tab PO SCH (20:37)
[2023-02-15] MEDS: Lidocaine 4% 1 each Patch TOP PRN (08:13)
[2023-02-15] MEDS: Clotrimazole 1% Crm 30 GM Tube TOP SCH ×3 (08:13→23:19)
[2023-02-15] MEDS: Carboxymethylcellulose Sodium 1% Ophth Gel 15 ML Bottle EYEBOTH SCH ×4 (08:13→23:19)
[2023-02-15] MEDS: levETIRAcetam 500 MG Tab PO SCH ×3 (08:14→23:15)
[2023-02-15] MEDS: Venlafaxine 37.5 MG Cap.ER PO SCH (08:14)
[2023-02-15] MEDS: Lacosamide 100 MG Tab PO SCH ×3 (08:14→23:22)
[2023-02-15] MEDS: oxyCODONE 5 MG Tab PO SCH (08:14)
[2023-02-15] MEDS: Sodium Chloride 1 GM Tab PO SCH ×3 (08:14→23:22)
[2023-02-15] MEDS: Simethicone 80 MG Tab.Chew PO SCH ×3 (08:15→23:19)
[2023-02-15] MEDS: Metoprolol Tartrate 25 MG Tab PO SCH ×3 (08:15→23:15)
[2023-02-15] MEDS: hydrOXYzine HCl 25 MG Tab PO SCH ×3 (08:15→23:15)
[2023-02-15] MEDS: Divalproex Sodium Delayed-Release 500 MG Tab.CR PO SCH ×3 (08:16→23:15)
[2023-02-15] MEDS: Sennosides 8.6 MG Tab PO SCH (08:16)
[2023-02-15] MEDS: atorvaSTATin 40 MG Tab PO SCH (08:16)
[2023-02-15] MEDS: Enoxaparin 40 MG/0.4 ML Syringe SUBCUT SCH (15:04)
[2023-02-15] MEDS: QUEtiapine 100 MG Tab PO SCH ×2 (19:47→23:19)
[2023-02-15] MEDS: Acetaminophen 325 MG Tab PO PRN (20:10)
[2023-02-16] MEDS: Venlafaxine 37.5 MG Cap.ER PO SCH (09:37)
[2023-02-16] MEDS: Lacosamide 100 MG Tab PO SCH ×2 (09:37→21:49)
[2023-02-16] MEDS: hydrOXYzine HCl 25 MG Tab PO SCH ×2 (09:38→21:47)
[2023-02-16] MEDS: Divalproex Sodium Delayed-Release 500 MG Tab.CR PO SCH ×2 (09:38→21:47)
[2023-02-16] MEDS: Sodium Chloride 1 GM Tab PO SCH ×2 (09:38→21:49)
[2023-02-16] MEDS: atorvaSTATin 40 MG Tab PO SCH (09:38)
[2023-02-16] MEDS: Sennosides 8.6 MG Tab PO SCH (09:38)
[2023-02-16] MEDS: levETIRAcetam 500 MG Tab PO SCH ×2 (09:38→21:49)
[2023-02-16] MEDS: Simethicone 80 MG Tab.Chew PO SCH ×2 (09:38→21:50)
[2023-02-16] MEDS: oxyCODONE 5 MG Tab PO SCH (09:38)
[2023-02-16] MEDS: Metoprolol Tartrate 25 MG Tab PO SCH ×2 (09:39→21:48)
[2023-02-16] MEDS: Clotrimazole 1% Crm 30 GM Tube TOP SCH ×2 (09:39→21:50)
[2023-02-16] MEDS: Carboxymethylcellulose Sodium 1% Ophth Gel 15 ML Bottle EYEBOTH SCH ×3 (09:39→21:50)
[2023-02-16] MEDS: Lidocaine 4% 1 each Patch TOP PRN (09:40)
[2023-02-16] MEDS: Enoxaparin 40 MG/0.4 ML Syringe SUBCUT SCH (15:10)
[2023-02-16] MEDS: QUEtiapine 100 MG Tab PO SCH (21:49)
[2023-02-17] MEDS: Acetaminophen 325 MG Tab PO PRN ×2 (00:39→21:24)
[2023-02-17] MEDS: Divalproex Sodium Delayed-Release 500 MG Tab.CR PO SCH ×2 (08:29→21:26)
[2023-02-17] MEDS: levETIRAcetam 500 MG Tab PO SCH ×2 (08:29→21:26)
[2023-02-17] MEDS: Venlafaxine 37.5 MG Cap.ER PO SCH (08:29)
[2023-02-17] MEDS: Simethicone 80 MG Tab.Chew PO SCH ×2 (08:30→21:26)
[2023-02-17] MEDS: Lacosamide 100 MG Tab PO SCH ×2 (08:30→21:24)
[2023-02-17] MEDS: oxyCODONE 5 MG Tab PO SCH (08:30)
[2023-02-17] MEDS: Sodium Chloride 1 GM Tab PO SCH ×2 (08:30→21:25)
[2023-02-17] MEDS: Sennosides 8.6 MG Tab PO SCH (08:30)
[2023-02-17] MEDS: atorvaSTATin 40 MG Tab PO SCH (08:30)
[2023-02-17] MEDS: hydrOXYzine HCl 25 MG Tab PO SCH ×2 (08:30→21:27)
[2023-02-17] MEDS: Metoprolol Tartrate 25 MG Tab PO SCH ×2 (08:31→21:26)
[2023-02-17] MEDS: Carboxymethylcellulose Sodium 1% Ophth Gel 15 ML Bottle EYEBOTH SCH ×3 (08:31→21:27)
[2023-02-17] MEDS: Clotrimazole 1% Crm 30 GM Tube TOP SCH ×2 (08:32→21:27)
[2023-02-17] MEDS: Lidocaine 4% 1 each Patch TOP PRN (08:32)
[2023-02-17] MEDS: Enoxaparin 40 MG/0.4 ML Syringe SUBCUT SCH (15:38)
[2023-02-17] MEDS: LORazepam 0.5 MG Tab PO PRN (21:24)
[2023-02-17] MEDS: QUEtiapine 100 MG Tab PO SCH (21:26)
[2023-02-18] MEDS: Venlafaxine 37.5 MG Cap.ER PO SCH (09:57)
[2023-02-18] MEDS: Divalproex Sodium Delayed-Release 500 MG Tab.CR PO SCH ×2 (09:57→21:04)
[2023-02-18] MEDS: hydrOXYzine HCl 25 MG Tab PO SCH ×2 (09:57→21:04)
[2023-02-18] MEDS: levETIRAcetam 500 MG Tab PO SCH ×2 (09:58→21:02)
[2023-02-18] MEDS: Sodium Chloride 1 GM Tab PO SCH ×2 (09:58→21:04)
[2023-02-18] MEDS: Simethicone 80 MG Tab.Chew PO SCH ×2 (09:58→21:04)
[2023-02-18] MEDS: atorvaSTATin 40 MG Tab PO SCH (09:58)
[2023-02-18] MEDS: Lacosamide 100 MG Tab PO SCH ×2 (09:58→21:02)
[2023-02-18] MEDS: oxyCODONE 5 MG Tab PO SCH (09:58)
[2023-02-18] MEDS: Carboxymethylcellulose Sodium 1% Ophth Gel 15 ML Bottle EYEBOTH SCH ×3 (09:59→21:05)
[2023-02-18] MEDS: Clotrimazole 1% Crm 30 GM Tube TOP SCH ×2 (09:59→21:05)
[2023-02-18] MEDS: Metoprolol Tartrate 25 MG Tab PO SCH ×2 (09:59→21:03)
[2023-02-18] MEDS: Sennosides 8.6 MG Tab PO SCH (09:59)
[2023-02-18] MEDS: Lidocaine 4% 1 each Patch TOP PRN (10:00)
[2023-02-18] MEDS: Enoxaparin 40 MG/0.4 ML Syringe SUBCUT SCH (14:53)
[2023-02-18] MEDS: Acetaminophen 325 MG Tab PO PRN (21:04)
[2023-02-18] MEDS: QUEtiapine 100 MG Tab PO SCH (21:05)
[2023-02-18] MEDS: LORazepam 0.5 MG Tab PO PRN (21:05)
[2023-02-19] MEDS: Clotrimazole 1% Crm 30 GM Tube TOP SCH ×2 (08:31→21:13)
[2023-02-19] MEDS: Divalproex Sodium Delayed-Release 500 MG Tab.CR PO SCH ×2 (08:31→21:11)
[2023-02-19] MEDS: Carboxymethylcellulose Sodium 1% Ophth Gel 15 ML Bottle EYEBOTH SCH ×3 (08:31→21:13)
[2023-02-19] MEDS: Lidocaine 4% 1 each Patch TOP PRN (08:31)
[2023-02-19] MEDS: Sodium Chloride 1 GM Tab PO SCH ×2 (08:32→21:11)
[2023-02-19] MEDS: Sennosides 8.6 MG Tab PO SCH (08:32)
[2023-02-19] MEDS: Lacosamide 100 MG Tab PO SCH ×2 (08:32→21:12)
[2023-02-19] MEDS: atorvaSTATin 40 MG Tab PO SCH (08:32)
[2023-02-19] MEDS: hydrOXYzine HCl 25 MG Tab PO SCH ×2 (08:32→21:11)
[2023-02-19] MEDS: Simethicone 80 MG Tab.Chew PO SCH ×2 (08:32→21:13)
[2023-02-19] MEDS: Venlafaxine 37.5 MG Cap.ER PO SCH (08:32)
[2023-02-19] MEDS: Metoprolol Tartrate 25 MG Tab PO SCH ×2 (08:32→21:12)
[2023-02-19] MEDS: oxyCODONE 5 MG Tab PO SCH (08:32)
[2023-02-19] MEDS: levETIRAcetam 500 MG Tab PO SCH ×2 (08:33→21:13)
[2023-02-19] MEDS: Enoxaparin 40 MG/0.4 ML Syringe SUBCUT SCH (15:17)
[2023-02-19] MEDS: QUEtiapine 100 MG Tab PO SCH (21:11)
[2023-02-19] MEDS: Acetaminophen 325 MG Tab PO PRN (21:11)
[2023-02-19] MEDS: LORazepam 0.5 MG Tab PO PRN (21:12)
[2023-02-20] MEDS: Carboxymethylcellulose Sodium 1% Ophth Gel 15 ML Bottle EYEBOTH SCH ×3 (08:15→20:32)
[2023-02-20] MEDS: Clotrimazole 1% Crm 30 GM Tube TOP SCH ×2 (08:15→20:32)
[2023-02-20] MEDS: Lidocaine 4% 1 each Patch TOP PRN (08:15)
[2023-02-20] MEDS: levETIRAcetam 500 MG Tab PO SCH ×2 (08:15→20:29)
[2023-02-20] MEDS: oxyCODONE 5 MG Tab PO SCH (08:16)
[2023-02-20] MEDS: Venlafaxine 37.5 MG Cap.ER PO SCH (08:16)
[2023-02-20] MEDS: atorvaSTATin 40 MG Tab PO SCH (08:16)
[2023-02-20] MEDS: Simethicone 80 MG Tab.Chew PO SCH ×2 (08:16→20:27)
[2023-02-20] MEDS: Divalproex Sodium Delayed-Release 500 MG Tab.CR PO SCH ×2 (08:16→20:31)
[2023-02-20] MEDS: Lacosamide 100 MG Tab PO SCH ×2 (08:16→20:27)
[2023-02-20] MEDS: Sennosides 8.6 MG Tab PO SCH (08:16)
[2023-02-20] MEDS: Sodium Chloride 1 GM Tab PO SCH ×2 (08:17→20:30)
[2023-02-20] MEDS: hydrOXYzine HCl 25 MG Tab PO SCH ×2 (08:17→20:30)
[2023-02-20] MEDS: Metoprolol Tartrate 25 MG Tab PO SCH ×2 (08:18→20:31)
[2023-02-20] MEDS: Enoxaparin 40 MG/0.4 ML Syringe SUBCUT SCH (15:34)
[2023-02-20] MEDS: QUEtiapine 100 MG Tab PO SCH (20:29)
[2023-02-20] MEDS: Acetaminophen 325 MG Tab PO PRN (21:16)
[2023-02-20] MEDS: LORazepam 0.5 MG Tab PO PRN (21:16)
[2023-02-21] MEDS: Simethicone 80 MG Tab.Chew PO SCH ×2 (08:09→21:44)
[2023-02-21] MEDS: Sodium Chloride 1 GM Tab PO SCH ×2 (08:09→21:45)
[2023-02-21] MEDS: hydrOXYzine HCl 25 MG Tab PO SCH ×2 (08:10→21:48)
[2023-02-21] MEDS: Lacosamide 100 MG Tab PO SCH ×2 (08:10→21:45)
[2023-02-21] MEDS: Sennosides 8.6 MG Tab PO SCH (08:10)
[2023-02-21] MEDS: Divalproex Sodium Delayed-Release 500 MG Tab.CR PO SCH ×2 (08:11→21:45)
[2023-02-21] MEDS: levETIRAcetam 500 MG Tab PO SCH ×2 (08:11→21:45)
[2023-02-21] MEDS: oxyCODONE 5 MG Tab PO SCH (08:12)
[2023-02-21] MEDS: atorvaSTATin 40 MG Tab PO SCH (08:12)
[2023-02-21] MEDS: Metoprolol Tartrate 25 MG Tab PO SCH ×2 (08:16→21:45)
[2023-02-21] MEDS: Clotrimazole 1% Crm 30 GM Tube TOP SCH ×2 (08:18→21:48)
[2023-02-21] MEDS: Venlafaxine 37.5 MG Cap.ER PO SCH (08:18)
[2023-02-21] MEDS: Carboxymethylcellulose Sodium 1% Ophth Gel 15 ML Bottle EYEBOTH SCH ×3 (08:19→21:49)
[2023-02-21] MEDS: Lidocaine 4% 1 each Patch TOP PRN (08:19)
[2023-02-21] MEDS: Enoxaparin 40 MG/0.4 ML Syringe SUBCUT SCH (15:39)
[2023-02-21] MEDS: QUEtiapine 100 MG Tab PO SCH (21:45)
[2023-02-21] MEDS: Acetaminophen 325 MG Tab PO PRN (22:35)
[2023-02-21] MEDS: LORazepam 0.5 MG Tab PO PRN (23:29)
[2023-02-22] MEDS: Divalproex Sodium Delayed-Release 500 MG Tab.CR PO SCH ×2 (11:01→20:24)
[2023-02-22] MEDS: hydrOXYzine HCl 25 MG Tab PO SCH ×2 (11:01→20:25)
[2023-02-22] MEDS: Clotrimazole 1% Crm 30 GM Tube TOP SCH ×2 (11:03→20:22)
[2023-02-22] MEDS: Metoprolol Tartrate 25 MG Tab PO SCH ×2 (11:03→20:24)
[2023-02-22] MEDS: Venlafaxine 37.5 MG Cap.ER PO SCH (11:03)
[2023-02-22] MEDS: atorvaSTATin 40 MG Tab PO SCH (11:03)
[2023-02-22] MEDS: levETIRAcetam 500 MG Tab PO SCH ×2 (11:03→20:24)
[2023-02-22] MEDS: Sodium Chloride 1 GM Tab PO SCH ×2 (11:04→20:23)
[2023-02-22] MEDS: Lacosamide 100 MG Tab PO SCH ×2 (11:04→20:25)
[2023-02-22] MEDS: Simethicone 80 MG Tab.Chew PO SCH ×2 (11:04→20:23)
[2023-02-22] MEDS: oxyCODONE 5 MG Tab PO SCH (11:04)
[2023-02-22] MEDS: Carboxymethylcellulose Sodium 1% Ophth Gel 15 ML Bottle EYEBOTH SCH ×3 (11:04→20:22)
[2023-02-22] MEDS: Sennosides 8.6 MG Tab PO SCH (11:04)
[2023-02-22] MEDS: Enoxaparin 40 MG/0.4 ML Syringe SUBCUT SCH (16:12)
[2023-02-22] MEDS: Acetaminophen 325 MG Tab PO PRN (20:23)
[2023-02-22] MEDS: QUEtiapine 100 MG Tab PO SCH (20:25)
[2023-02-23] MEDS: atorvaSTATin 40 MG Tab PO SCH (08:20)
[2023-02-23] MEDS: Venlafaxine 37.5 MG Cap.ER PO SCH (08:20)
[2023-02-23] MEDS: Sodium Chloride 1 GM Tab PO SCH ×2 (08:21→20:32)
[2023-02-23] MEDS: Metoprolol Tartrate 25 MG Tab PO SCH ×2 (08:21→20:32)
[2023-02-23] MEDS: Lacosamide 100 MG Tab PO SCH ×2 (08:22→20:32)
[2023-02-23] MEDS: Sennosides 8.6 MG Tab PO SCH (08:22)
[2023-02-23] MEDS: Divalproex Sodium Delayed-Release 500 MG Tab.CR PO SCH ×2 (08:22→20:33)
[2023-02-23] MEDS: oxyCODONE 5 MG Tab PO SCH (08:22)
[2023-02-23] MEDS: levETIRAcetam 500 MG Tab PO SCH ×2 (08:22→20:31)
[2023-02-23] MEDS: hydrOXYzine HCl 25 MG Tab PO SCH ×2 (08:22→20:33)
[2023-02-23] MEDS: Carboxymethylcellulose Sodium 1% Ophth Gel 15 ML Bottle EYEBOTH SCH ×3 (08:23→20:31)
[2023-02-23] MEDS: Clotrimazole 1% Crm 30 GM Tube TOP SCH ×2 (08:23→20:31)
[2023-02-23] MEDS: Simethicone 80 MG Tab.Chew PO SCH ×2 (08:26→20:31)
[2023-02-23] MEDS: Enoxaparin 40 MG/0.4 ML Syringe SUBCUT SCH (16:16)
[2023-02-23] MEDS: QUEtiapine 100 MG Tab PO SCH (20:33)
[2023-02-24] MEDS: levETIRAcetam 500 MG Tab PO SCH ×2 (08:25→21:15)
[2023-02-24] MEDS: Metoprolol Tartrate 25 MG Tab PO SCH ×2 (08:25→21:06)
[2023-02-24] MEDS: oxyCODONE 5 MG Tab PO SCH (08:25)
[2023-02-24] MEDS: Divalproex Sodium Delayed-Release 500 MG Tab.CR PO SCH ×2 (08:26→21:03)
[2023-02-24] MEDS: Sodium Chloride 1 GM Tab PO SCH ×2 (08:26→21:14)
[2023-02-24] MEDS: Venlafaxine 37.5 MG Cap.ER PO SCH (08:27)
[2023-02-24] MEDS: atorvaSTATin 40 MG Tab PO SCH (08:27)
[2023-02-24] MEDS: Simethicone 80 MG Tab.Chew PO SCH ×2 (08:27→21:05)
[2023-02-24] MEDS: Sennosides 8.6 MG Tab PO SCH (08:28)
[2023-02-24] MEDS: hydrOXYzine HCl 25 MG Tab PO SCH ×2 (08:28→21:05)
[2023-02-24] MEDS: Lacosamide 100 MG Tab PO SCH ×2 (08:28→21:15)
[2023-02-24] MEDS: Carboxymethylcellulose Sodium 1% Ophth Gel 15 ML Bottle EYEBOTH SCH ×3 (08:29→21:18)
[2023-02-24] MEDS: Clotrimazole 1% Crm 30 GM Tube TOP SCH (08:29)
[2023-02-24] MEDS: Enoxaparin 40 MG/0.4 ML Syringe SUBCUT SCH (14:31)
[2023-02-24] MEDS: QUEtiapine 100 MG Tab PO SCH (21:11)
[2023-02-24] MEDS: LORazepam 0.5 MG Tab PO PRN (21:59)
[2023-02-24] MEDS: Acetaminophen 325 MG Tab PO PRN (22:01)
[2023-02-25] MEDS: Simethicone 80 MG Tab.Chew PO SCH ×2 (08:33→20:05)
[2023-02-25] MEDS: Sennosides 8.6 MG Tab PO SCH (08:34)
[2023-02-25] MEDS: oxyCODONE 5 MG Tab PO SCH (08:34)
[2023-02-25] MEDS: hydrOXYzine HCl 25 MG Tab PO SCH ×2 (08:34→20:05)
[2023-02-25] MEDS: levETIRAcetam 500 MG Tab PO SCH ×2 (08:34→20:04)
[2023-02-25] MEDS: Lacosamide 100 MG Tab PO SCH ×2 (08:34→20:05)
[2023-02-25] MEDS: atorvaSTATin 40 MG Tab PO SCH (08:34)
[2023-02-25] MEDS: Sodium Chloride 1 GM Tab PO SCH ×2 (08:35→20:05)
[2023-02-25] MEDS: Divalproex Sodium Delayed-Release 500 MG Tab.CR PO SCH ×2 (08:35→20:04)
[2023-02-25] MEDS: Venlafaxine 75 MG Cap.ER PO SCH (08:35)
[2023-02-25] MEDS: Metoprolol Tartrate 25 MG Tab PO SCH ×2 (08:35→20:06)
[2023-02-25] MEDS: Carboxymethylcellulose Sodium 1% Ophth Gel 15 ML Bottle EYEBOTH SCH ×3 (08:35→20:03)
[2023-02-25] MEDS: Lidocaine 4% 1 each Patch TOP PRN (09:20)
[2023-02-25] MEDS: Enoxaparin 40 MG/0.4 ML Syringe SUBCUT SCH (14:21)
[2023-02-25] MEDS: QUEtiapine 100 MG Tab PO SCH (20:04)
[2023-02-25] MEDS: Acetaminophen 325 MG Tab PO PRN (20:23)
[2023-02-26] MEDS: Sodium Chloride 1 GM Tab PO SCH ×2 (08:00→20:26)
[2023-02-26] MEDS: oxyCODONE 5 MG Tab PO SCH (08:00)
[2023-02-26] MEDS: Lidocaine 4% 1 each Patch TOP PRN (08:00)
[2023-02-26] MEDS: Carboxymethylcellulose Sodium 1% Ophth Gel 15 ML Bottle EYEBOTH SCH ×3 (08:00→20:24)
[2023-02-26] MEDS: Lacosamide 100 MG Tab PO SCH ×2 (08:01→20:24)
[2023-02-26] MEDS: Venlafaxine 75 MG Cap.ER PO SCH (08:01)
[2023-02-26] MEDS: Sennosides 8.6 MG Tab PO SCH (08:01)
[2023-02-26] MEDS: Metoprolol Tartrate 25 MG Tab PO SCH ×2 (08:01→20:26)
[2023-02-26] MEDS: Divalproex Sodium Delayed-Release 500 MG Tab.CR PO SCH ×2 (08:01→20:24)
[2023-02-26] MEDS: atorvaSTATin 40 MG Tab PO SCH (08:01)
[2023-02-26] MEDS: Simethicone 80 MG Tab.Chew PO SCH ×2 (08:01→20:25)
[2023-02-26] MEDS: levETIRAcetam 500 MG Tab PO SCH ×2 (08:02→20:25)
[2023-02-26] MEDS: hydrOXYzine HCl 25 MG Tab PO SCH ×2 (08:02→20:26)
[2023-02-26] MEDS: Acetaminophen 325 MG Tab PO PRN ×2 (12:38→20:25)
[2023-02-26] MEDS: Enoxaparin 40 MG/0.4 ML Syringe SUBCUT SCH (15:42)
[2023-02-26] MEDS: QUEtiapine 100 MG Tab PO SCH (20:26)
[2023-02-27] MEDS: Lidocaine 4% 1 each Patch TOP PRN (08:10)
[2023-02-27] MEDS: atorvaSTATin 40 MG Tab PO SCH (08:11)
[2023-02-27] MEDS: levETIRAcetam 500 MG Tab PO SCH ×2 (08:11→20:24)
[2023-02-27] MEDS: Simethicone 80 MG Tab.Chew PO SCH ×2 (08:11→20:22)
[2023-02-27] MEDS: hydrOXYzine HCl 25 MG Tab PO SCH ×2 (08:11→20:23)
[2023-02-27] MEDS: Sodium Chloride 1 GM Tab PO SCH ×2 (08:12→20:23)
[2023-02-27] MEDS: Lacosamide 100 MG Tab PO SCH ×2 (08:12→20:23)
[2023-02-27] MEDS: Sennosides 8.6 MG Tab PO SCH (08:12)
[2023-02-27] MEDS: oxyCODONE 5 MG Tab PO SCH (08:12)
[2023-02-27] MEDS: Venlafaxine 75 MG Cap.ER PO SCH (08:13)
[2023-02-27] MEDS: Metoprolol Tartrate 25 MG Tab PO SCH ×2 (08:13→20:23)
[2023-02-27] MEDS: Divalproex Sodium Delayed-Release 500 MG Tab.CR PO SCH ×2 (08:13→20:22)
[2023-02-27] MEDS: Carboxymethylcellulose Sodium 1% Ophth Gel 15 ML Bottle EYEBOTH SCH ×3 (08:13→20:26)
[2023-02-27] MEDS: Enoxaparin 40 MG/0.4 ML Syringe SUBCUT SCH (14:42)
[2023-02-27] MEDS: QUEtiapine 100 MG Tab PO SCH (20:22)
[2023-02-27] MEDS: Acetaminophen 325 MG Tab PO PRN (20:26)
[2023-02-27] MEDS ORDERED: Aluminum Hydroxide/Magnesium Hydroxide/Simethicone Susp 30 ML Cup PO PRN (21:33)
[2023-02-27] MEDS: LORazepam 0.5 MG Tab PO PRN (21:40)
[2023-02-28] MEDS: Divalproex Sodium Delayed-Release 500 MG Tab.CR PO SCH ×2 (09:15→20:44)
[2023-02-28] MEDS: Venlafaxine 75 MG Cap.ER PO SCH (09:16)
[2023-02-28] MEDS: levETIRAcetam 500 MG Tab PO SCH ×2 (09:16→20:48)
[2023-02-28] MEDS: Metoprolol Tartrate 25 MG Tab PO SCH ×2 (09:16→20:47)
[2023-02-28] MEDS: oxyCODONE 5 MG Tab PO SCH (09:16)
[2023-02-28] MEDS: atorvaSTATin 40 MG Tab PO SCH (09:16)
[2023-02-28] MEDS: hydrOXYzine HCl 25 MG Tab PO SCH ×2 (09:16→20:47)
[2023-02-28] MEDS: Lacosamide 100 MG Tab PO SCH ×2 (09:17→20:46)
[2023-02-28] MEDS: Sennosides 8.6 MG Tab PO SCH (09:17)
[2023-02-28] MEDS: Simethicone 80 MG Tab.Chew PO SCH ×2 (09:17→20:45)
[2023-02-28] MEDS: Sodium Chloride 1 GM Tab PO SCH ×2 (09:17→20:47)
[2023-02-28] MEDS: Lidocaine 4% 1 each Patch TOP PRN (09:18)
[2023-02-28] MEDS: Carboxymethylcellulose Sodium 1% Ophth Gel 15 ML Bottle EYEBOTH SCH ×3 (09:18→20:48)
[2023-02-28] MEDS: Enoxaparin 40 MG/0.4 ML Syringe SUBCUT SCH (16:51)
[2023-02-28] MEDS: LORazepam 0.5 MG Tab PO PRN (20:45)
[2023-02-28] MEDS: QUEtiapine 100 MG Tab PO SCH (20:46)
[2023-02-28] MEDS: Acetaminophen 325 MG Tab PO PRN (21:53)
[2023-03-01] MEDS: Sennosides 8.6 MG Tab PO SCH (09:59)
[2023-03-01] MEDS: Simethicone 80 MG Tab.Chew PO SCH ×2 (09:59→20:41)
[2023-03-01] MEDS: levETIRAcetam 500 MG Tab PO SCH ×2 (09:59→20:41)
[2023-03-01] MEDS: atorvaSTATin 40 MG Tab PO SCH (10:00)
[2023-03-01] MEDS: Lacosamide 100 MG Tab PO SCH ×2 (10:00→20:42)
[2023-03-01] MEDS: Sodium Chloride 1 GM Tab PO SCH ×2 (10:00→20:43)
[2023-03-01] MEDS: oxyCODONE 5 MG Tab PO SCH (10:00)
[2023-03-01] MEDS: Venlafaxine 75 MG Cap.ER PO SCH (10:01)
[2023-03-01] MEDS: hydrOXYzine HCl 25 MG Tab PO SCH ×2 (10:01→20:42)
[2023-03-01] MEDS: Lidocaine 4% 1 each Patch TOP PRN (10:01)
[2023-03-01] MEDS: Divalproex Sodium Delayed-Release 500 MG Tab.CR PO SCH ×2 (10:01→20:42)
[2023-03-01] MEDS: Metoprolol Tartrate 25 MG Tab PO SCH ×2 (10:01→20:42)
[2023-03-01] MEDS: Carboxymethylcellulose Sodium 1% Ophth Gel 15 ML Bottle EYEBOTH SCH ×3 (10:02→20:42)
[2023-03-01] MEDS: Enoxaparin 40 MG/0.4 ML Syringe SUBCUT SCH (15:46)
[2023-03-01] MEDS: QUEtiapine 100 MG Tab PO SCH (20:41)
[2023-03-01] MEDS: Acetaminophen 325 MG Tab PO PRN (20:43)
[2023-03-02] MEDS: levETIRAcetam 500 MG Tab PO SCH ×2 (08:34→21:44)
[2023-03-02] MEDS: atorvaSTATin 40 MG Tab PO SCH (08:35)
[2023-03-02] MEDS: Venlafaxine 75 MG Cap.ER PO SCH (08:35)
[2023-03-02] MEDS: Sodium Chloride 1 GM Tab PO SCH ×2 (08:35→21:43)
[2023-03-02] MEDS: hydrOXYzine HCl 25 MG Tab PO SCH ×2 (08:35→21:43)
[2023-03-02] MEDS: Divalproex Sodium Delayed-Release 500 MG Tab.CR PO SCH ×2 (08:35→21:42)
[2023-03-02] MEDS: Sennosides 8.6 MG Tab PO SCH (08:36)
[2023-03-02] MEDS: Metoprolol Tartrate 25 MG Tab PO SCH ×2 (08:36→21:44)
[2023-03-02] MEDS: oxyCODONE 5 MG Tab PO SCH (08:36)
[2023-03-02] MEDS: Lacosamide 100 MG Tab PO SCH ×2 (08:36→21:44)
[2023-03-02] MEDS: Carboxymethylcellulose Sodium 1% Ophth Gel 15 ML Bottle EYEBOTH SCH ×3 (08:37→21:44)
[2023-03-02] MEDS: Lidocaine 4% 1 each Patch TOP PRN (08:37)
[2023-03-02] MEDS: Simethicone 80 MG Tab.Chew PO SCH ×2 (08:37→21:42)
[2023-03-02] MEDS: Enoxaparin 40 MG/0.4 ML Syringe SUBCUT SCH (15:42)
[2023-03-02] MEDS: QUEtiapine 100 MG Tab PO SCH (21:43)
[2023-03-03] MEDS: Divalproex Sodium Delayed-Release 500 MG Tab.CR PO SCH ×2 (08:43→20:15)
[2023-03-03] MEDS: Simethicone 80 MG Tab.Chew PO SCH ×2 (08:43→20:20)
[2023-03-03] MEDS: atorvaSTATin 40 MG Tab PO SCH (08:43)
[2023-03-03] MEDS: oxyCODONE 5 MG Tab PO SCH (08:44)
[2023-03-03] MEDS: Metoprolol Tartrate 25 MG Tab PO SCH ×2 (08:44→20:19)
[2023-03-03] MEDS: hydrOXYzine HCl 25 MG Tab PO SCH ×2 (08:44→20:16)
[2023-03-03] MEDS: Sodium Chloride 1 GM Tab PO SCH ×2 (08:44→20:19)
[2023-03-03] MEDS: Lacosamide 100 MG Tab PO SCH ×2 (08:44→20:15)
[2023-03-03] MEDS: Sennosides 8.6 MG Tab PO SCH (08:44)
[2023-03-03] MEDS: levETIRAcetam 500 MG Tab PO SCH ×2 (08:44→20:16)
[2023-03-03] MEDS: Carboxymethylcellulose Sodium 1% Ophth Gel 15 ML Bottle EYEBOTH SCH ×3 (08:45→20:21)
[2023-03-03] MEDS: Venlafaxine 75 MG Cap.ER PO SCH (08:45)
[2023-03-03] MEDS: Lidocaine 4% 1 each Patch TOP PRN (08:45)
[2023-03-03] MEDS: Enoxaparin 40 MG/0.4 ML Syringe SUBCUT SCH (14:45)
[2023-03-03] MEDS: QUEtiapine 100 MG Tab PO SCH (20:17)
[2023-03-03] MEDS: Acetaminophen 325 MG Tab PO PRN (20:17)
[2023-03-03] MEDS: LORazepam 0.5 MG Tab PO PRN (20:26)
[2023-03-04] MEDS: levETIRAcetam 500 MG Tab PO SCH ×2 (08:57→21:09)
[2023-03-04] MEDS: Sodium Chloride 1 GM Tab PO SCH ×2 (08:58→21:10)
[2023-03-04] MEDS: Simethicone 80 MG Tab.Chew PO SCH ×2 (08:58→21:09)
[2023-03-04] MEDS: Divalproex Sodium Delayed-Release 500 MG Tab.CR PO SCH ×2 (08:58→21:09)
[2023-03-04] MEDS: Venlafaxine 75 MG Cap.ER PO SCH (08:59)
[2023-03-04] MEDS: oxyCODONE 5 MG Tab PO SCH (08:59)
[2023-03-04] MEDS: Sennosides 8.6 MG Tab PO SCH (09:00)
[2023-03-04] MEDS: atorvaSTATin 40 MG Tab PO SCH (09:00)
[2023-03-04] MEDS: Lacosamide 100 MG Tab PO SCH ×2 (09:01→21:13)
[2023-03-04] MEDS: hydrOXYzine HCl 25 MG Tab PO SCH ×2 (09:01→21:13)
[2023-03-04] MEDS: Metoprolol Tartrate 25 MG Tab PO SCH ×2 (09:05→21:15)
[2023-03-04] MEDS: Carboxymethylcellulose Sodium 1% Ophth Gel 15 ML Bottle EYEBOTH SCH ×3 (09:09→21:16)
[2023-03-04] MEDS: Lidocaine 4% 1 each Patch TOP PRN (09:16)
[2023-03-04] MEDS: Enoxaparin 40 MG/0.4 ML Syringe SUBCUT SCH (14:26)
[2023-03-04] MEDS: LORazepam 0.5 MG Tab PO PRN (21:10)
[2023-03-04] MEDS: Acetaminophen 325 MG Tab PO PRN (21:11)
[2023-03-04] MEDS: QUEtiapine 100 MG Tab PO SCH (21:14)
[2023-03-05] MEDS: levETIRAcetam 500 MG Tab PO SCH ×2 (09:28→20:24)
[2023-03-05] MEDS: Sennosides 8.6 MG Tab PO SCH (09:28)
[2023-03-05] MEDS: atorvaSTATin 40 MG Tab PO SCH (09:28)
[2023-03-05] MEDS: Lacosamide 100 MG Tab PO SCH ×2 (09:28→20:30)
[2023-03-05] MEDS: Sodium Chloride 1 GM Tab PO SCH ×2 (09:28→20:30)
[2023-03-05] MEDS: Simethicone 80 MG Tab.Chew PO SCH ×2 (09:29→20:29)
[2023-03-05] MEDS: hydrOXYzine HCl 25 MG Tab PO SCH ×2 (09:29→20:50)
[2023-03-05] MEDS: Venlafaxine 75 MG Cap.ER PO SCH (09:29)
[2023-03-05] MEDS: oxyCODONE 5 MG Tab PO SCH (09:29)
[2023-03-05] MEDS: Divalproex Sodium Delayed-Release 500 MG Tab.CR PO SCH ×2 (09:29→20:25)
[2023-03-05] MEDS: Metoprolol Tartrate 25 MG Tab PO SCH ×2 (09:30→20:25)
[2023-03-05] MEDS: Carboxymethylcellulose Sodium 1% Ophth Gel 15 ML Bottle EYEBOTH SCH ×3 (09:34→20:26)
[2023-03-05] MEDS: Enoxaparin 40 MG/0.4 ML Syringe SUBCUT SCH (14:44)
[2023-03-05] MEDS: QUEtiapine 100 MG Tab PO SCH (20:28)
[2023-03-05] MEDS: LORazepam 0.5 MG Tab PO PRN (20:31)
[2023-03-05] MEDS: Acetaminophen 325 MG Tab PO PRN (20:32)
[2023-03-06] MEDS: Sennosides 8.6 MG Tab PO SCH (09:02)
[2023-03-06] MEDS: Simethicone 80 MG Tab.Chew PO SCH ×2 (09:02→20:09)
[2023-03-06] MEDS: levETIRAcetam 500 MG Tab PO SCH ×2 (09:03→20:09)
[2023-03-06] MEDS: hydrOXYzine HCl 25 MG Tab PO SCH ×2 (09:04→20:12)
[2023-03-06] MEDS: Metoprolol Tartrate 25 MG Tab PO SCH ×2 (09:04→20:15)
[2023-03-06] MEDS: atorvaSTATin 40 MG Tab PO SCH (09:04)
[2023-03-06] MEDS: Sodium Chloride 1 GM Tab PO SCH ×2 (09:05→20:11)
[2023-03-06] MEDS: Lacosamide 100 MG Tab PO SCH ×2 (09:05→20:11)
[2023-03-06] MEDS: Divalproex Sodium Delayed-Release 500 MG Tab.CR PO SCH ×2 (09:05→20:12)
[2023-03-06] MEDS: oxyCODONE 5 MG Tab PO SCH (09:05)
[2023-03-06] MEDS: Venlafaxine 75 MG Cap.ER PO SCH (09:06)
[2023-03-06] MEDS: Carboxymethylcellulose Sodium 1% Ophth Gel 15 ML Bottle EYEBOTH SCH ×3 (09:10→20:10)
[2023-03-06] MEDS: Lidocaine 4% 1 each Patch TOP PRN (09:10)
[2023-03-06] MEDS: Enoxaparin 40 MG/0.4 ML Syringe SUBCUT SCH (14:11)
[2023-03-06] MEDS: QUEtiapine 100 MG Tab PO SCH (20:09)
[2023-03-06] MEDS: Acetaminophen 325 MG Tab PO PRN (20:13)
[2023-03-07] MEDS: Simethicone 80 MG Tab.Chew PO SCH ×2 (09:08→20:19)
[2023-03-07] MEDS: Acetaminophen 325 MG Tab PO PRN ×2 (09:08→20:25)
[2023-03-07] MEDS: Venlafaxine 75 MG Cap.ER PO SCH (09:09)
[2023-03-07] MEDS: levETIRAcetam 500 MG Tab PO SCH ×2 (09:09→20:14)
[2023-03-07] MEDS: Sennosides 8.6 MG Tab PO SCH (09:10)
[2023-03-07] MEDS: oxyCODONE 5 MG Tab PO SCH (09:10)
[2023-03-07] MEDS: Sodium Chloride 1 GM Tab PO SCH ×2 (09:10→20:14)
[2023-03-07] MEDS: Divalproex Sodium Delayed-Release 500 MG Tab.CR PO SCH ×2 (09:10→20:14)
[2023-03-07] MEDS: Lacosamide 100 MG Tab PO SCH ×2 (09:11→20:19)
[2023-03-07] MEDS: atorvaSTATin 40 MG Tab PO SCH (09:11)
[2023-03-07] MEDS: Metoprolol Tartrate 25 MG Tab PO SCH ×2 (09:11→20:14)
[2023-03-07] MEDS: hydrOXYzine HCl 25 MG Tab PO SCH ×2 (09:11→20:18)
[2023-03-07] MEDS: Carboxymethylcellulose Sodium 1% Ophth Gel 15 ML Bottle EYEBOTH SCH ×3 (09:12→20:22)
[2023-03-07] MEDS: Lidocaine 4% 1 each Patch TOP PRN (09:13)
[2023-03-07] MEDS: Enoxaparin 40 MG/0.4 ML Syringe SUBCUT SCH (14:23)
[2023-03-07] MEDS: QUEtiapine 100 MG Tab PO SCH (20:17)
[2023-03-07] MEDS: LORazepam 0.5 MG Tab PO PRN (20:26)
[2023-03-08] MEDS: levETIRAcetam 500 MG Tab PO SCH ×2 (08:05→20:12)
[2023-03-08] MEDS: Lidocaine 4% 1 each Patch TOP PRN (08:05)
[2023-03-08] MEDS: Sennosides 8.6 MG Tab PO SCH (08:06)
[2023-03-08] MEDS: Venlafaxine 75 MG Cap.ER PO SCH (08:06)
[2023-03-08] MEDS: Lacosamide 100 MG Tab PO SCH ×2 (08:06→20:13)
[2023-03-08] MEDS: Sodium Chloride 1 GM Tab PO SCH ×2 (08:06→20:12)
[2023-03-08] MEDS: Divalproex Sodium Delayed-Release 500 MG Tab.CR PO SCH ×2 (08:06→20:13)
[2023-03-08] MEDS: atorvaSTATin 40 MG Tab PO SCH (08:06)
[2023-03-08] MEDS: Metoprolol Tartrate 25 MG Tab PO SCH ×2 (08:06→20:13)
[2023-03-08] MEDS: hydrOXYzine HCl 25 MG Tab PO SCH ×2 (08:08→20:13)
[2023-03-08] MEDS: oxyCODONE 5 MG Tab PO SCH (08:08)
[2023-03-08] MEDS: Simethicone 80 MG Tab.Chew PO SCH ×2 (08:08→20:11)
[2023-03-08] MEDS: Carboxymethylcellulose Sodium 1% Ophth Gel 15 ML Bottle EYEBOTH SCH ×3 (08:09→20:16)
[2023-03-08] MEDS: Enoxaparin 40 MG/0.4 ML Syringe SUBCUT SCH (15:18)
[2023-03-08] MEDS: QUEtiapine 100 MG Tab PO SCH (20:13)
[2023-03-08] MEDS: Acetaminophen 325 MG Tab PO PRN (20:14)
[2023-03-08] MEDS: LORazepam 0.5 MG Tab PO PRN (21:27)
[2023-03-09] MEDS: Carboxymethylcellulose Sodium 1% Ophth Gel 15 ML Bottle EYEBOTH SCH ×3 (08:08→20:10)
[2023-03-09] MEDS: Metoprolol Tartrate 25 MG Tab PO SCH ×2 (08:09→20:09)
[2023-03-09] MEDS: hydrOXYzine HCl 25 MG Tab PO SCH ×2 (08:09→20:07)
[2023-03-09] MEDS: Venlafaxine 75 MG Cap.ER PO SCH (08:10)
[2023-03-09] MEDS: levETIRAcetam 500 MG Tab PO SCH ×2 (08:10→20:11)
[2023-03-09] MEDS: atorvaSTATin 40 MG Tab PO SCH (08:10)
[2023-03-09] MEDS: Sennosides 8.6 MG Tab PO SCH (08:10)
[2023-03-09] MEDS: Simethicone 80 MG Tab.Chew PO SCH ×2 (08:11→20:09)
[2023-03-09] MEDS: Sodium Chloride 1 GM Tab PO SCH ×2 (08:11→20:09)
[2023-03-09] MEDS: oxyCODONE 5 MG Tab PO SCH (08:11)
[2023-03-09] MEDS: Lacosamide 100 MG Tab PO SCH ×2 (08:11→20:08)
[2023-03-09] MEDS: Divalproex Sodium Delayed-Release 500 MG Tab.CR PO SCH ×2 (08:11→20:09)
[2023-03-09] MEDS: Acetaminophen 325 MG Tab PO PRN ×2 (08:21→20:08)
[2023-03-09] MEDS: Enoxaparin 40 MG/0.4 ML Syringe SUBCUT SCH (15:04)
[2023-03-09] MEDS: QUEtiapine 100 MG Tab PO SCH (20:07)
[2023-03-09] MEDS: LORazepam 0.5 MG Tab PO PRN (20:09)
[2023-03-10] MEDS: Lacosamide 100 MG Tab PO SCH ×2 (08:56→20:42)
[2023-03-10] MEDS: Metoprolol Tartrate 25 MG Tab PO SCH ×2 (08:56→20:43)
[2023-03-10] MEDS: Sodium Chloride 1 GM Tab PO SCH ×2 (08:56→20:41)
[2023-03-10] MEDS: oxyCODONE 5 MG Tab PO SCH (08:58)
[2023-03-10] MEDS: Simethicone 80 MG Tab.Chew PO SCH ×2 (08:58→20:42)
[2023-03-10] MEDS: Venlafaxine 75 MG Cap.ER PO SCH (08:59)
[2023-03-10] MEDS: atorvaSTATin 40 MG Tab PO SCH (08:59)
[2023-03-10] MEDS: hydrOXYzine HCl 25 MG Tab PO SCH ×2 (08:59→20:42)
[2023-03-10] MEDS: Divalproex Sodium Delayed-Release 500 MG Tab.CR PO SCH ×2 (08:59→20:42)
[2023-03-10] MEDS: Sennosides 8.6 MG Tab PO SCH (08:59)
[2023-03-10] MEDS: levETIRAcetam 500 MG Tab PO SCH ×2 (08:59→20:41)
[2023-03-10] MEDS: Carboxymethylcellulose Sodium 1% Ophth Gel 15 ML Bottle EYEBOTH SCH ×3 (09:03→20:44)
[2023-03-10] MEDS: Enoxaparin 40 MG/0.4 ML Syringe SUBCUT SCH (15:28)
[2023-03-10] MEDS: QUEtiapine 100 MG Tab PO SCH (20:41)
[2023-03-10] MEDS: Acetaminophen 325 MG Tab PO PRN (20:43)
[2023-03-10] MEDS: Clotrimazole 1% Crm 30 GM Tube TOP SCH (20:44)
[2023-03-11] MEDS: Venlafaxine 75 MG Cap.ER PO SCH (08:05)
[2023-03-11] MEDS: oxyCODONE 5 MG Tab PO SCH (08:05)
[2023-03-11] MEDS: Divalproex Sodium Delayed-Release 500 MG Tab.CR PO SCH ×2 (08:05→20:12)
[2023-03-11] MEDS: Lacosamide 100 MG Tab PO SCH ×2 (08:05→20:11)
[2023-03-11] MEDS: levETIRAcetam 500 MG Tab PO SCH ×2 (08:06→20:12)
[2023-03-11] MEDS: Simethicone 80 MG Tab.Chew PO SCH ×2 (08:06→20:12)
[2023-03-11] MEDS: Metoprolol Tartrate 25 MG Tab PO SCH ×2 (08:06→20:12)
[2023-03-11] MEDS: Sennosides 8.6 MG Tab PO SCH (08:06)
[2023-03-11] MEDS: atorvaSTATin 40 MG Tab PO SCH (08:06)
[2023-03-11] MEDS: hydrOXYzine HCl 25 MG Tab PO SCH ×2 (08:06→20:12)
[2023-03-11] MEDS: Clotrimazole 1% Crm 30 GM Tube TOP SCH ×2 (08:07→20:13)
[2023-03-11] MEDS: Sodium Chloride 1 GM Tab PO SCH ×2 (08:07→20:12)
[2023-03-11] MEDS: Carboxymethylcellulose Sodium 1% Ophth Gel 15 ML Bottle EYEBOTH SCH ×3 (08:07→20:13)
[2023-03-11] MEDS: Lidocaine 4% 1 each Patch TOP PRN (08:52)
[2023-03-11] MEDS: Enoxaparin 40 MG/0.4 ML Syringe SUBCUT SCH (14:47)
[2023-03-11] MEDS: Acetaminophen 325 MG Tab PO PRN (20:11)
[2023-03-11] MEDS: QUEtiapine 100 MG Tab PO SCH (20:12)
[2023-03-12] MEDS: oxyCODONE 5 MG Tab PO SCH (08:07)
[2023-03-12] MEDS: Venlafaxine 75 MG Cap.ER PO SCH (08:07)
[2023-03-12] MEDS: levETIRAcetam 500 MG Tab PO SCH ×2 (08:08→20:19)
[2023-03-12] MEDS: Metoprolol Tartrate 25 MG Tab PO SCH ×2 (08:08→20:18)
[2023-03-12] MEDS: Sodium Chloride 1 GM Tab PO SCH ×2 (08:08→20:18)
[2023-03-12] MEDS: Sennosides 8.6 MG Tab PO SCH (08:08)
[2023-03-12] MEDS: Simethicone 80 MG Tab.Chew PO SCH ×2 (08:08→20:17)
[2023-03-12] MEDS: Lacosamide 100 MG Tab PO SCH ×2 (08:08→20:19)
[2023-03-12] MEDS: Divalproex Sodium Delayed-Release 500 MG Tab.CR PO SCH ×2 (08:08→20:18)
[2023-03-12] MEDS: hydrOXYzine HCl 25 MG Tab PO SCH ×2 (08:09→20:18)
[2023-03-12] MEDS: Clotrimazole 1% Crm 30 GM Tube TOP SCH ×2 (08:09→20:15)
[2023-03-12] MEDS: atorvaSTATin 40 MG Tab PO SCH (08:09)
[2023-03-12] MEDS: Carboxymethylcellulose Sodium 1% Ophth Gel 15 ML Bottle EYEBOTH SCH ×3 (08:09→20:15)
[2023-03-12] MEDS: Lidocaine 4% 1 each Patch TOP PRN (08:10)
[2023-03-12] MEDS ORDERED: Hydrocortisone Acetate 25 MG Supp RECTAL PRN (09:18)
[2023-03-12] MEDS: Enoxaparin 40 MG/0.4 ML Syringe SUBCUT SCH ×2 (13:53→14:32)
[2023-03-12] MEDS: LORazepam 0.5 MG Tab PO PRN (20:18)
[2023-03-12] MEDS: QUEtiapine 100 MG Tab PO SCH (20:19)
[2023-03-12] MEDS: Acetaminophen 325 MG Tab PO PRN (20:19)
[2023-03-13] MEDS: Venlafaxine 75 MG Cap.ER PO SCH (08:19)
[2023-03-13] MEDS: atorvaSTATin 40 MG Tab PO SCH (08:19)
[2023-03-13] MEDS: Simethicone 80 MG Tab.Chew PO SCH ×2 (08:20→20:12)
[2023-03-13] MEDS: Sennosides 8.6 MG Tab PO SCH (08:20)
[2023-03-13] MEDS: oxyCODONE 5 MG Tab PO SCH (08:20)
[2023-03-13] MEDS: Divalproex Sodium Delayed-Release 500 MG Tab.CR PO SCH ×2 (08:20→20:14)
[2023-03-13] MEDS: Lacosamide 100 MG Tab PO SCH ×2 (08:20→20:12)
[2023-03-13] MEDS: hydrOXYzine HCl 25 MG Tab PO SCH ×2 (08:20→20:14)
[2023-03-13] MEDS: Sodium Chloride 1 GM Tab PO SCH ×2 (08:22→20:13)
[2023-03-13] MEDS: levETIRAcetam 500 MG Tab PO SCH ×2 (08:22→20:14)
[2023-03-13] MEDS: Lidocaine 4% 1 each Patch TOP PRN (08:22)
[2023-03-13] MEDS: Metoprolol Tartrate 25 MG Tab PO SCH ×2 (08:23→20:15)
[2023-03-13] MEDS: Carboxymethylcellulose Sodium 1% Ophth Gel 15 ML Bottle EYEBOTH SCH ×3 (08:23→20:16)
[2023-03-13] MEDS: Clotrimazole 1% Crm 30 GM Tube TOP SCH ×2 (08:24→20:16)
[2023-03-13] MEDS: Enoxaparin 40 MG/0.4 ML Syringe SUBCUT SCH (14:33)
[2023-03-13] MEDS: QUEtiapine 100 MG Tab PO SCH (20:13)
[2023-03-13] MEDS: LORazepam 0.5 MG Tab PO PRN (20:13)
[2023-03-13] MEDS: Acetaminophen 325 MG Tab PO PRN (20:14)
[2023-03-14] MEDS: Simethicone 80 MG Tab.Chew PO SCH ×2 (08:43→20:01)
[2023-03-14] MEDS: atorvaSTATin 40 MG Tab PO SCH (08:43)
[2023-03-14] MEDS: Metoprolol Tartrate 25 MG Tab PO SCH ×2 (08:44→20:03)
[2023-03-14] MEDS: oxyCODONE 5 MG Tab PO SCH (08:44)
[2023-03-14] MEDS: Lacosamide 100 MG Tab PO SCH ×2 (08:44→20:03)
[2023-03-14] MEDS: hydrOXYzine HCl 25 MG Tab PO SCH ×2 (08:44→20:03)
[2023-03-14] MEDS: Sennosides 8.6 MG Tab PO SCH (08:44)
[2023-03-14] MEDS: levETIRAcetam 500 MG Tab PO SCH ×2 (08:44→20:01)
[2023-03-14] MEDS: Venlafaxine 75 MG Cap.ER PO SCH (08:45)
[2023-03-14] MEDS: Sodium Chloride 1 GM Tab PO SCH ×2 (08:45→20:02)
[2023-03-14] MEDS: Carboxymethylcellulose Sodium 1% Ophth Gel 15 ML Bottle EYEBOTH SCH ×3 (08:45→20:03)
[2023-03-14] MEDS: Divalproex Sodium Delayed-Release 500 MG Tab.CR PO SCH ×2 (08:45→20:01)
[2023-03-14] MEDS: Clotrimazole 1% Crm 30 GM Tube TOP SCH ×2 (08:45→20:03)
[2023-03-14] MEDS: Lidocaine 4% 1 each Patch TOP PRN (08:50)
[2023-03-14] MEDS: Enoxaparin 40 MG/0.4 ML Syringe SUBCUT SCH (16:22)
[2023-03-14] MEDS: Acetaminophen 325 MG Tab PO PRN (20:02)
[2023-03-14] MEDS: QUEtiapine 100 MG Tab PO SCH (20:02)
[2023-03-15] MEDS: Divalproex Sodium Delayed-Release 500 MG Tab.CR PO SCH ×2 (09:18→20:10)
[2023-03-15] MEDS: hydrOXYzine HCl 25 MG Tab PO SCH ×2 (09:18→20:10)
[2023-03-15] MEDS: Venlafaxine 75 MG Cap.ER PO SCH (09:19)
[2023-03-15] MEDS: levETIRAcetam 500 MG Tab PO SCH ×2 (09:20→20:10)
[2023-03-15] MEDS: atorvaSTATin 40 MG Tab PO SCH (09:21)
[2023-03-15] MEDS: Metoprolol Tartrate 25 MG Tab PO SCH ×2 (09:24→20:09)
[2023-03-15] MEDS: oxyCODONE 5 MG Tab PO SCH (09:26)
[2023-03-15] MEDS: Sennosides 8.6 MG Tab PO SCH (09:27)
[2023-03-15] MEDS: Lacosamide 100 MG Tab PO SCH ×2 (09:28→20:09)
[2023-03-15] MEDS: Sodium Chloride 1 GM Tab PO SCH ×2 (09:28→20:10)
[2023-03-15] MEDS: Simethicone 80 MG Tab.Chew PO SCH ×2 (09:29→20:10)
[2023-03-15] MEDS: Carboxymethylcellulose Sodium 1% Ophth Gel 15 ML Bottle EYEBOTH SCH ×3 (09:30→20:10)
[2023-03-15] MEDS: Clotrimazole 1% Crm 30 GM Tube TOP SCH ×2 (09:31→20:11)
[2023-03-15] MEDS: Lidocaine 4% 1 each Patch TOP PRN (09:32)
[2023-03-15] MEDS: Enoxaparin 40 MG/0.4 ML Syringe SUBCUT SCH (14:37)
[2023-03-15] MEDS: QUEtiapine 100 MG Tab PO SCH (20:08)
[2023-03-15] MEDS: Acetaminophen 325 MG Tab PO PRN (20:09)
[2023-03-16] MEDS: Lidocaine 4% 1 each Patch TOP PRN (08:17)
[2023-03-16] MEDS: Clotrimazole 1% Crm 30 GM Tube TOP SCH ×2 (08:17→21:06)
[2023-03-16] MEDS: Sennosides 8.6 MG Tab PO SCH (08:18)
[2023-03-16] MEDS: hydrOXYzine HCl 25 MG Tab PO SCH ×2 (08:18→21:02)
[2023-03-16] MEDS: Venlafaxine 75 MG Cap.ER PO SCH (08:18)
[2023-03-16] MEDS: levETIRAcetam 500 MG Tab PO SCH ×2 (08:18→21:04)
[2023-03-16] MEDS: Simethicone 80 MG Tab.Chew PO SCH ×2 (08:18→21:01)
[2023-03-16] MEDS: Carboxymethylcellulose Sodium 1% Ophth Gel 15 ML Bottle EYEBOTH SCH ×3 (08:18→21:06)
[2023-03-16] MEDS: Divalproex Sodium Delayed-Release 500 MG Tab.CR PO SCH ×2 (08:19→21:04)
[2023-03-16] MEDS: Metoprolol Tartrate 25 MG Tab PO SCH ×2 (08:19→21:01)
[2023-03-16] MEDS: oxyCODONE 5 MG Tab PO SCH (08:19)
[2023-03-16] MEDS: atorvaSTATin 40 MG Tab PO SCH (08:19)
[2023-03-16] MEDS: Lacosamide 100 MG Tab PO SCH ×2 (08:19→21:02)
[2023-03-16] MEDS: Sodium Chloride 1 GM Tab PO SCH ×2 (08:19→21:03)
[2023-03-16] MEDS: Enoxaparin 40 MG/0.4 ML Syringe SUBCUT SCH (15:47)
[2023-03-16] MEDS: QUEtiapine 100 MG Tab PO SCH (21:02)
[2023-03-16] MEDS: Acetaminophen 325 MG Tab PO PRN (21:04)
[2023-03-17] MEDS: Carboxymethylcellulose Sodium 1% Ophth Gel 15 ML Bottle EYEBOTH SCH ×3 (08:08→21:08)
[2023-03-17] MEDS: Lidocaine 4% 1 each Patch TOP PRN (08:08)
[2023-03-17] MEDS: Clotrimazole 1% Crm 30 GM Tube TOP SCH ×2 (08:08→21:08)
[2023-03-17] MEDS: Sodium Chloride 1 GM Tab PO SCH ×2 (08:09→21:07)
[2023-03-17] MEDS: levETIRAcetam 500 MG Tab PO SCH ×2 (08:09→21:07)
[2023-03-17] MEDS: oxyCODONE 5 MG Tab PO SCH (08:09)
[2023-03-17] MEDS: atorvaSTATin 40 MG Tab PO SCH (08:09)
[2023-03-17] MEDS: hydrOXYzine HCl 25 MG Tab PO SCH ×2 (08:10→21:08)
[2023-03-17] MEDS: Simethicone 80 MG Tab.Chew PO SCH ×2 (08:10→21:08)
[2023-03-17] MEDS: Metoprolol Tartrate 25 MG Tab PO SCH ×2 (08:10→21:06)
[2023-03-17] MEDS: Venlafaxine 75 MG Cap.ER PO SCH (08:10)
[2023-03-17] MEDS: Lacosamide 100 MG Tab PO SCH ×2 (08:10→21:07)
[2023-03-17] MEDS: Divalproex Sodium Delayed-Release 500 MG Tab.CR PO SCH ×2 (08:10→21:07)
[2023-03-17] MEDS: Sennosides 8.6 MG Tab PO SCH (08:10)
[2023-03-17] MEDS: Enoxaparin 40 MG/0.4 ML Syringe SUBCUT SCH (14:05)
[2023-03-17] MEDS: QUEtiapine 100 MG Tab PO SCH (21:07)
[2023-03-18] MEDS: Lidocaine 4% 1 each Patch TOP PRN (08:32)
[2023-03-18] MEDS: Sodium Chloride 1 GM Tab PO SCH ×2 (08:33→20:10)
[2023-03-18] MEDS: levETIRAcetam 500 MG Tab PO SCH ×2 (08:33→20:10)
[2023-03-18] MEDS: Clotrimazole 1% Crm 30 GM Tube TOP SCH ×2 (08:33→20:14)
[2023-03-18] MEDS: Carboxymethylcellulose Sodium 1% Ophth Gel 15 ML Bottle EYEBOTH SCH ×4 (08:33→20:15)
[2023-03-18] MEDS: Sennosides 8.6 MG Tab PO SCH (08:34)
[2023-03-18] MEDS: Venlafaxine 75 MG Cap.ER PO SCH (08:34)
[2023-03-18] MEDS: Metoprolol Tartrate 25 MG Tab PO SCH ×2 (08:34→20:12)
[2023-03-18] MEDS: oxyCODONE 5 MG Tab PO SCH (08:34)
[2023-03-18] MEDS: Divalproex Sodium Delayed-Release 500 MG Tab.CR PO SCH ×2 (08:34→20:13)
[2023-03-18] MEDS: Lacosamide 100 MG Tab PO SCH ×2 (08:35→20:12)
[2023-03-18] MEDS: hydrOXYzine HCl 25 MG Tab PO SCH ×2 (08:35→20:12)
[2023-03-18] MEDS: Simethicone 80 MG Tab.Chew PO SCH ×2 (08:35→20:11)
[2023-03-18] MEDS: atorvaSTATin 40 MG Tab PO SCH (08:35)
[2023-03-18] MEDS: Acetaminophen 325 MG Tab PO PRN (13:34)
[2023-03-18] MEDS: Enoxaparin 40 MG/0.4 ML Syringe SUBCUT SCH ×2 (13:34→14:51)
[2023-03-18] MEDS: QUEtiapine 100 MG Tab PO SCH (20:11)
[2023-03-19] MEDS: oxyCODONE 5 MG Tab PO SCH (08:36)
[2023-03-19] MEDS: Lidocaine 4% 1 each Patch TOP PRN (08:36)
[2023-03-19] MEDS: Divalproex Sodium Delayed-Release 500 MG Tab.CR PO SCH ×2 (08:36→20:34)
[2023-03-19] MEDS: Metoprolol Tartrate 25 MG Tab PO SCH ×2 (08:37→20:35)
[2023-03-19] MEDS: Lacosamide 100 MG Tab PO SCH ×2 (08:37→20:36)
[2023-03-19] MEDS: Sodium Chloride 1 GM Tab PO SCH ×2 (08:37→20:35)
[2023-03-19] MEDS: atorvaSTATin 40 MG Tab PO SCH (08:37)
[2023-03-19] MEDS: hydrOXYzine HCl 25 MG Tab PO SCH ×2 (08:37→20:36)
[2023-03-19] MEDS: levETIRAcetam 500 MG Tab PO SCH ×2 (08:37→20:34)
[2023-03-19] MEDS: Venlafaxine 75 MG Cap.ER PO SCH (08:38)
[2023-03-19] MEDS: Sennosides 8.6 MG Tab PO SCH (08:38)
[2023-03-19] MEDS: Simethicone 80 MG Tab.Chew PO SCH ×2 (08:38→20:33)
[2023-03-19] MEDS: Carboxymethylcellulose Sodium 1% Ophth Gel 15 ML Bottle EYEBOTH SCH ×3 (08:39→20:37)
[2023-03-19] MEDS: Clotrimazole 1% Crm 30 GM Tube TOP SCH ×2 (08:39→20:37)
[2023-03-19] MEDS: Enoxaparin 40 MG/0.4 ML Syringe SUBCUT SCH (15:06)
[2023-03-19] MEDS: QUEtiapine 100 MG Tab PO SCH (20:36)
[2023-03-20] MEDS: Simethicone 80 MG Tab.Chew PO SCH ×2 (08:24→20:09)
[2023-03-20] MEDS: Metoprolol Tartrate 25 MG Tab PO SCH ×2 (08:25→20:10)
[2023-03-20] MEDS: oxyCODONE 5 MG Tab PO SCH (08:26)
[2023-03-20] MEDS: atorvaSTATin 40 MG Tab PO SCH (08:26)
[2023-03-20] MEDS: Venlafaxine 75 MG Cap.ER PO SCH (08:26)
[2023-03-20] MEDS: Lacosamide 100 MG Tab PO SCH ×2 (08:27→20:09)
[2023-03-20] MEDS: Sodium Chloride 1 GM Tab PO SCH ×2 (08:27→20:07)
[2023-03-20] MEDS: Sennosides 8.6 MG Tab PO SCH (08:27)
[2023-03-20] MEDS: hydrOXYzine HCl 25 MG Tab PO SCH ×2 (08:27→20:10)
[2023-03-20] MEDS: levETIRAcetam 500 MG Tab PO SCH ×2 (08:27→20:08)
[2023-03-20] MEDS: Divalproex Sodium Delayed-Release 500 MG Tab.CR PO SCH ×2 (08:28→20:08)
[2023-03-20] MEDS: Clotrimazole 1% Crm 30 GM Tube TOP SCH ×2 (08:31→20:12)
[2023-03-20] MEDS: Carboxymethylcellulose Sodium 1% Ophth Gel 15 ML Bottle EYEBOTH SCH ×3 (08:31→20:12)
[2023-03-20] MEDS: Enoxaparin 40 MG/0.4 ML Syringe SUBCUT SCH (15:32)
[2023-03-20] MEDS: QUEtiapine 100 MG Tab PO SCH (20:07)
[2023-03-20] MEDS: Acetaminophen 325 MG Tab PO PRN (20:55)
[2023-03-20] MEDS: LORazepam 0.5 MG Tab PO PRN (20:55)
[2023-03-21] MEDS: Lacosamide 100 MG Tab PO SCH ×2 (08:36→21:04)
[2023-03-21] MEDS: atorvaSTATin 40 MG Tab PO SCH (08:36)
[2023-03-21] MEDS: levETIRAcetam 500 MG Tab PO SCH ×2 (08:36→21:05)
[2023-03-21] MEDS: Simethicone 80 MG Tab.Chew PO SCH ×2 (08:37→21:05)
[2023-03-21] MEDS: Metoprolol Tartrate 25 MG Tab PO SCH ×2 (08:37→21:04)
[2023-03-21] MEDS: hydrOXYzine HCl 25 MG Tab PO SCH ×2 (08:38→21:04)
[2023-03-21] MEDS: Sodium Chloride 1 GM Tab PO SCH ×2 (08:38→21:05)
[2023-03-21] MEDS: Sennosides 8.6 MG Tab PO SCH (08:38)
[2023-03-21] MEDS: Venlafaxine 75 MG Cap.ER PO SCH (08:38)
[2023-03-21] MEDS: Divalproex Sodium Delayed-Release 500 MG Tab.CR PO SCH ×2 (08:39→21:04)
[2023-03-21] MEDS: oxyCODONE 5 MG Tab PO SCH (08:41)
[2023-03-21] MEDS: Clotrimazole 1% Crm 30 GM Tube TOP SCH ×2 (08:45→21:11)
[2023-03-21] MEDS: Carboxymethylcellulose Sodium 1% Ophth Gel 15 ML Bottle EYEBOTH SCH ×3 (08:45→21:10)
[2023-03-21] MEDS: Enoxaparin 40 MG/0.4 ML Syringe SUBCUT SCH (15:57)
[2023-03-21] MEDS: QUEtiapine 100 MG Tab PO SCH (21:04)
[2023-03-22] MEDS: Simethicone 80 MG Tab.Chew PO SCH ×3 (09:19→21:03)
[2023-03-22] MEDS: Venlafaxine 75 MG Cap.ER PO SCH (09:22)
[2023-03-22] MEDS: Sodium Chloride 1 GM Tab PO SCH ×2 (09:22→20:01)
[2023-03-22] MEDS: Lacosamide 100 MG Tab PO SCH ×3 (09:22→21:04)
[2023-03-22] MEDS: Sennosides 8.6 MG Tab PO SCH (09:22)
[2023-03-22] MEDS: oxyCODONE 5 MG Tab PO SCH (09:23)
[2023-03-22] MEDS: hydrOXYzine HCl 25 MG Tab PO SCH ×3 (09:23→21:03)
[2023-03-22] MEDS: atorvaSTATin 40 MG Tab PO SCH (09:24)
[2023-03-22] MEDS: levETIRAcetam 500 MG Tab PO SCH ×3 (09:24→21:03)
[2023-03-22] MEDS: Divalproex Sodium Delayed-Release 500 MG Tab.CR PO SCH ×3 (09:25→21:03)
[2023-03-22] MEDS: Clotrimazole 1% Crm 30 GM Tube TOP SCH ×3 (09:25→21:03)
[2023-03-22] MEDS: Carboxymethylcellulose Sodium 1% Ophth Gel 15 ML Bottle EYEBOTH SCH ×4 (09:26→21:03)
[2023-03-22] MEDS: Metoprolol Tartrate 25 MG Tab PO SCH ×3 (09:30→21:03)
[2023-03-22] MEDS: Enoxaparin 40 MG/0.4 ML Syringe SUBCUT SCH (15:25)
[2023-03-22] MEDS: QUEtiapine 100 MG Tab PO SCH ×2 (19:53→21:03)
[2023-03-22] MEDS: Acetaminophen 325 MG Tab PO PRN (20:01)
[2023-03-23] MEDS: Lidocaine 4% 1 each Patch TOP PRN (09:48)
[2023-03-23] MEDS: Simethicone 80 MG Tab.Chew PO SCH ×2 (09:48→20:09)
[2023-03-23] MEDS: Metoprolol Tartrate 25 MG Tab PO SCH ×2 (09:49→20:08)
[2023-03-23] MEDS: Lacosamide 100 MG Tab PO SCH ×2 (09:49→20:07)
[2023-03-23] MEDS: Sennosides 8.6 MG Tab PO SCH (09:49)
[2023-03-23] MEDS: levETIRAcetam 500 MG Tab PO SCH ×2 (09:49→20:07)
[2023-03-23] MEDS: Divalproex Sodium Delayed-Release 500 MG Tab.CR PO SCH ×2 (09:49→20:07)
[2023-03-23] MEDS: Clotrimazole 1% Crm 30 GM Tube TOP SCH ×2 (09:50→20:08)
[2023-03-23] MEDS: Venlafaxine 75 MG Cap.ER PO SCH (09:50)
[2023-03-23] MEDS: oxyCODONE 5 MG Tab PO SCH (09:50)
[2023-03-23] MEDS: hydrOXYzine HCl 25 MG Tab PO SCH ×2 (09:50→20:07)
[2023-03-23] MEDS: Sodium Chloride 1 GM Tab PO SCH ×2 (09:50→20:07)
[2023-03-23] MEDS: atorvaSTATin 40 MG Tab PO SCH (09:50)
[2023-03-23] MEDS: Carboxymethylcellulose Sodium 1% Ophth Gel 15 ML Bottle EYEBOTH SCH ×3 (09:51→20:08)
[2023-03-23] MEDS: Enoxaparin 40 MG/0.4 ML Syringe SUBCUT SCH (15:42)
[2023-03-23] MEDS: QUEtiapine 100 MG Tab PO SCH (20:07)
[2023-03-24] MEDS: levETIRAcetam 500 MG Tab PO SCH ×2 (08:46→20:18)
[2023-03-24] MEDS: Sodium Chloride 1 GM Tab PO SCH ×2 (08:46→20:18)
[2023-03-24] MEDS: Metoprolol Tartrate 25 MG Tab PO SCH ×2 (08:46→20:18)
[2023-03-24] MEDS: Simethicone 80 MG Tab.Chew PO SCH ×2 (08:46→20:18)
[2023-03-24] MEDS: oxyCODONE 5 MG Tab PO SCH (08:47)
[2023-03-24] MEDS: hydrOXYzine HCl 25 MG Tab PO SCH ×2 (08:47→20:18)
[2023-03-24] MEDS: Divalproex Sodium Delayed-Release 500 MG Tab.CR PO SCH ×2 (08:47→20:18)
[2023-03-24] MEDS: atorvaSTATin 40 MG Tab PO SCH (08:47)
[2023-03-24] MEDS: Lacosamide 100 MG Tab PO SCH ×2 (08:47→20:18)
[2023-03-24] MEDS: Sennosides 8.6 MG Tab PO SCH (08:47)
[2023-03-24] MEDS: Venlafaxine 75 MG Cap.ER PO SCH (08:47)
[2023-03-24] MEDS: Clotrimazole 1% Crm 30 GM Tube TOP SCH ×2 (08:48→20:16)
[2023-03-24] MEDS: Carboxymethylcellulose Sodium 1% Ophth Gel 15 ML Bottle EYEBOTH SCH ×3 (08:49→20:16)
[2023-03-24] MEDS: Enoxaparin 40 MG/0.4 ML Syringe SUBCUT SCH (14:47)
[2023-03-24] MEDS: LORazepam 0.5 MG Tab PO PRN (20:18)
[2023-03-24] MEDS: Acetaminophen 325 MG Tab PO PRN (20:18)
[2023-03-24] MEDS: QUEtiapine 100 MG Tab PO SCH (20:18)
[2023-03-25] MEDS: Simethicone 80 MG Tab.Chew PO SCH ×2 (08:23→20:09)
[2023-03-25] MEDS: Divalproex Sodium Delayed-Release 500 MG Tab.CR PO SCH ×2 (08:23→20:10)
[2023-03-25] MEDS: atorvaSTATin 40 MG Tab PO SCH (08:23)
[2023-03-25] MEDS: hydrOXYzine HCl 25 MG Tab PO SCH ×2 (08:23→20:10)
[2023-03-25] MEDS: Metoprolol Tartrate 25 MG Tab PO SCH ×2 (08:28→20:10)
[2023-03-25] MEDS: levETIRAcetam 500 MG Tab PO SCH ×2 (08:28→20:07)
[2023-03-25] MEDS: Venlafaxine 75 MG Cap.ER PO SCH (08:30)
[2023-03-25] MEDS: oxyCODONE 5 MG Tab PO SCH (08:30)
[2023-03-25] MEDS: Sodium Chloride 1 GM Tab PO SCH ×2 (08:30→20:09)
[2023-03-25] MEDS: Sennosides 8.6 MG Tab PO SCH (08:30)
[2023-03-25] MEDS: Lacosamide 100 MG Tab PO SCH ×2 (08:30→20:09)
[2023-03-25] MEDS: Clotrimazole 1% Crm 30 GM Tube TOP SCH ×2 (08:36→20:06)
[2023-03-25] MEDS: Carboxymethylcellulose Sodium 1% Ophth Gel 15 ML Bottle EYEBOTH SCH ×3 (08:36→20:07)
[2023-03-25] MEDS: Enoxaparin 40 MG/0.4 ML Syringe SUBCUT SCH (14:47)
[2023-03-25] MEDS: QUEtiapine 100 MG Tab PO SCH (20:07)
[2023-03-25] MEDS: LORazepam 0.5 MG Tab PO PRN (20:07)
[2023-03-25] MEDS: Acetaminophen 325 MG Tab PO PRN (20:09)
[2023-03-26] MEDS: Sennosides 8.6 MG Tab PO SCH (08:27)
[2023-03-26] MEDS: Venlafaxine 75 MG Cap.ER PO SCH (08:28)
[2023-03-26] MEDS: Divalproex Sodium Delayed-Release 500 MG Tab.CR PO SCH ×2 (08:28→20:13)
[2023-03-26] MEDS: levETIRAcetam 500 MG Tab PO SCH ×2 (08:28→20:13)
[2023-03-26] MEDS: atorvaSTATin 40 MG Tab PO SCH (08:28)
[2023-03-26] MEDS: Sodium Chloride 1 GM Tab PO SCH ×2 (08:28→20:13)
[2023-03-26] MEDS: Lacosamide 100 MG Tab PO SCH ×2 (08:28→20:14)
[2023-03-26] MEDS: hydrOXYzine HCl 25 MG Tab PO SCH ×2 (08:28→20:13)
[2023-03-26] MEDS: Metoprolol Tartrate 25 MG Tab PO SCH ×2 (08:29→20:14)
[2023-03-26] MEDS: oxyCODONE 5 MG Tab PO SCH (08:29)
[2023-03-26] MEDS: Clotrimazole 1% Crm 30 GM Tube TOP SCH ×2 (08:33→20:12)
[2023-03-26] MEDS: Simethicone 80 MG Tab.Chew PO SCH ×2 (08:34→20:13)
[2023-03-26] MEDS: Carboxymethylcellulose Sodium 1% Ophth Gel 15 ML Bottle EYEBOTH SCH ×3 (08:34→20:12)
[2023-03-26] MEDS: Lidocaine 4% 1 each Patch TOP PRN (08:34)
[2023-03-26] MEDS: Enoxaparin 40 MG/0.4 ML Syringe SUBCUT SCH (15:41)
[2023-03-26] MEDS: Acetaminophen 325 MG Tab PO PRN (20:14)
[2023-03-26] MEDS: LORazepam 0.5 MG Tab PO PRN (20:14)
[2023-03-26] MEDS: QUEtiapine 100 MG Tab PO SCH (20:14)
[2023-03-27] MEDS: atorvaSTATin 40 MG Tab PO SCH (08:19)
[2023-03-27] MEDS: Simethicone 80 MG Tab.Chew PO SCH ×2 (08:19→21:28)
[2023-03-27] MEDS: Venlafaxine 75 MG Cap.ER PO SCH (08:19)
[2023-03-27] MEDS: Lacosamide 100 MG Tab PO SCH ×2 (08:19→21:27)
[2023-03-27] MEDS: Sennosides 8.6 MG Tab PO SCH (08:19)
[2023-03-27] MEDS: levETIRAcetam 500 MG Tab PO SCH ×2 (08:20→21:32)
[2023-03-27] MEDS: Divalproex Sodium Delayed-Release 500 MG Tab.CR PO SCH ×2 (08:20→21:28)
[2023-03-27] MEDS: oxyCODONE 5 MG Tab PO SCH (08:20)
[2023-03-27] MEDS: hydrOXYzine HCl 25 MG Tab PO SCH ×2 (08:21→21:33)
[2023-03-27] MEDS: Metoprolol Tartrate 25 MG Tab PO SCH ×2 (08:21→21:31)
[2023-03-27] MEDS: Sodium Chloride 1 GM Tab PO SCH ×2 (08:22→21:27)
[2023-03-27] MEDS: Clotrimazole 1% Crm 30 GM Tube TOP SCH ×2 (08:22→21:35)
[2023-03-27] MEDS: Carboxymethylcellulose Sodium 1% Ophth Gel 15 ML Bottle EYEBOTH SCH ×3 (08:23→21:35)
[2023-03-27] MEDS: Enoxaparin 40 MG/0.4 ML Syringe SUBCUT SCH (14:22)
[2023-03-27] MEDS: Acetaminophen 325 MG Tab PO PRN (21:29)
[2023-03-27] MEDS: LORazepam 0.5 MG Tab PO PRN (21:30)
[2023-03-27] MEDS: QUEtiapine 100 MG Tab PO SCH (21:33)
[2023-03-28] MEDS: Lidocaine 4% 1 each Patch TOP PRN (08:37)
[2023-03-28] MEDS: Clotrimazole 1% Crm 30 GM Tube TOP SCH ×2 (08:38→20:16)
[2023-03-28] MEDS: Carboxymethylcellulose Sodium 1% Ophth Gel 15 ML Bottle EYEBOTH SCH ×3 (08:38→20:16)
[2023-03-28] MEDS: Divalproex Sodium Delayed-Release 500 MG Tab.CR PO SCH ×2 (08:39→20:15)
[2023-03-28] MEDS: Metoprolol Tartrate 25 MG Tab PO SCH ×2 (08:40→20:15)
[2023-03-28] MEDS: Simethicone 80 MG Tab.Chew PO SCH ×2 (08:40→20:17)
[2023-03-28] MEDS: Lacosamide 100 MG Tab PO SCH ×2 (08:40→20:17)
[2023-03-28] MEDS: Sennosides 8.6 MG Tab PO SCH (08:40)
[2023-03-28] MEDS: levETIRAcetam 500 MG Tab PO SCH ×2 (08:40→20:14)
[2023-03-28] MEDS: Venlafaxine 75 MG Cap.ER PO SCH (08:40)
[2023-03-28] MEDS: oxyCODONE 5 MG Tab PO SCH (08:41)
[2023-03-28] MEDS: Sodium Chloride 1 GM Tab PO SCH ×2 (08:41→20:17)
[2023-03-28] MEDS: atorvaSTATin 40 MG Tab PO SCH (08:41)
[2023-03-28] MEDS: hydrOXYzine HCl 25 MG Tab PO SCH ×2 (08:41→20:14)
[2023-03-28] MEDS: Enoxaparin 40 MG/0.4 ML Syringe SUBCUT SCH (15:30)
[2023-03-28] MEDS: QUEtiapine 100 MG Tab PO SCH (20:17)
[2023-03-28] MEDS: Acetaminophen 325 MG Tab PO PRN (20:18)
[2023-03-29] MEDS: Simethicone 80 MG Tab.Chew PO SCH ×2 (08:26→20:49)
[2023-03-29] MEDS: Lidocaine 4% 1 each Patch TOP PRN (08:27)
[2023-03-29] MEDS: Sennosides 8.6 MG Tab PO SCH (08:28)
[2023-03-29] MEDS: Venlafaxine 75 MG Cap.ER PO SCH (08:28)
[2023-03-29] MEDS: Lacosamide 100 MG Tab PO SCH ×2 (08:28→20:48)
[2023-03-29] MEDS: Sodium Chloride 1 GM Tab PO SCH ×2 (08:29→20:48)
[2023-03-29] MEDS: Divalproex Sodium Delayed-Release 500 MG Tab.CR PO SCH ×2 (08:29→20:47)
[2023-03-29] MEDS: levETIRAcetam 500 MG Tab PO SCH ×2 (08:29→20:48)
[2023-03-29] MEDS: atorvaSTATin 40 MG Tab PO SCH (08:30)
[2023-03-29] MEDS: oxyCODONE 5 MG Tab PO SCH (08:30)
[2023-03-29] MEDS: Clotrimazole 1% Crm 30 GM Tube TOP SCH ×2 (08:31→20:49)
[2023-03-29] MEDS: hydrOXYzine HCl 25 MG Tab PO SCH ×2 (08:31→20:49)
[2023-03-29] MEDS: Metoprolol Tartrate 25 MG Tab PO SCH ×2 (08:31→20:46)
[2023-03-29] MEDS: Carboxymethylcellulose Sodium 1% Ophth Gel 15 ML Bottle EYEBOTH SCH ×3 (08:32→20:50)
[2023-03-29] MEDS: Enoxaparin 40 MG/0.4 ML Syringe SUBCUT SCH (15:20)
[2023-03-29] MEDS: QUEtiapine 100 MG Tab PO SCH (20:47)
[2023-03-29] MEDS: Acetaminophen 325 MG Tab PO PRN (20:50)
[2023-03-30] MEDS: Lacosamide 100 MG Tab PO SCH ×2 (08:26→20:29)
[2023-03-30] MEDS: Sennosides 8.6 MG Tab PO SCH (08:28)
[2023-03-30] MEDS: atorvaSTATin 40 MG Tab PO SCH (08:28)
[2023-03-30] MEDS: Sodium Chloride 1 GM Tab PO SCH ×2 (08:28→20:28)
[2023-03-30] MEDS: levETIRAcetam 500 MG Tab PO SCH ×2 (08:28→20:27)
[2023-03-30] MEDS: Divalproex Sodium Delayed-Release 500 MG Tab.CR PO SCH ×2 (08:28→20:27)
[2023-03-30] MEDS: oxyCODONE 5 MG Tab PO SCH (08:29)
[2023-03-30] MEDS: Venlafaxine 75 MG Cap.ER PO SCH (08:29)
[2023-03-30] MEDS: Clotrimazole 1% Crm 30 GM Tube TOP SCH ×2 (08:30→20:27)
[2023-03-30] MEDS: Simethicone 80 MG Tab.Chew PO SCH ×2 (08:30→20:26)
[2023-03-30] MEDS: hydrOXYzine HCl 25 MG Tab PO SCH ×2 (08:30→20:29)
[2023-03-30] MEDS: Metoprolol Tartrate 25 MG Tab PO SCH ×2 (08:31→20:28)
[2023-03-30] MEDS: Lidocaine 4% 1 each Patch TOP PRN (08:31)
[2023-03-30] MEDS: Carboxymethylcellulose Sodium 1% Ophth Gel 15 ML Bottle EYEBOTH SCH ×3 (08:31→20:29)
[2023-03-30] MEDS: Enoxaparin 40 MG/0.4 ML Syringe SUBCUT SCH (16:12)
[2023-03-30] MEDS: QUEtiapine 100 MG Tab PO SCH (20:26)
[2023-03-30] MEDS: Acetaminophen 325 MG Tab PO PRN (20:29)
[2023-03-31] MEDS: levETIRAcetam 500 MG Tab PO SCH ×2 (08:15→20:28)
[2023-03-31] MEDS: Sodium Chloride 1 GM Tab PO SCH ×2 (08:15→20:27)
[2023-03-31] MEDS: Divalproex Sodium Delayed-Release 500 MG Tab.CR PO SCH ×2 (08:15→20:26)
[2023-03-31] MEDS: Sennosides 8.6 MG Tab PO SCH (08:16)
[2023-03-31] MEDS: atorvaSTATin 40 MG Tab PO SCH (08:16)
[2023-03-31] MEDS: Metoprolol Tartrate 25 MG Tab PO SCH ×2 (08:16→20:26)
[2023-03-31] MEDS: Lacosamide 100 MG Tab PO SCH ×2 (08:16→20:27)
[2023-03-31] MEDS: oxyCODONE 5 MG Tab PO SCH (08:16)
[2023-03-31] MEDS: Venlafaxine 75 MG Cap.ER PO SCH (08:16)
[2023-03-31] MEDS: hydrOXYzine HCl 25 MG Tab PO SCH ×2 (08:16→20:27)
[2023-03-31] MEDS: Simethicone 80 MG Tab.Chew PO SCH ×2 (08:17→20:25)
[2023-03-31] MEDS: Clotrimazole 1% Crm 30 GM Tube TOP SCH ×2 (08:22→20:28)
[2023-03-31] MEDS: Carboxymethylcellulose Sodium 1% Ophth Gel 15 ML Bottle EYEBOTH SCH ×3 (08:22→20:28)
[2023-03-31] MEDS: Lidocaine 4% 1 each Patch TOP PRN (08:23)
[2023-03-31] MEDS: Enoxaparin 40 MG/0.4 ML Syringe SUBCUT SCH (16:59)
[2023-03-31] MEDS: Acetaminophen 325 MG Tab PO PRN (20:27)
[2023-03-31] MEDS: QUEtiapine 100 MG Tab PO SCH (20:28)
[2023-03-31] MEDS: LORazepam 0.5 MG Tab PO PRN (20:41)
[2023-04-01] MEDS: levETIRAcetam 500 MG Tab PO SCH ×2 (08:42→20:37)
[2023-04-01] MEDS: Venlafaxine 75 MG Cap.ER PO SCH (08:42)
[2023-04-01] MEDS: Sodium Chloride 1 GM Tab PO SCH ×2 (08:43→20:36)
[2023-04-01] MEDS: Metoprolol Tartrate 25 MG Tab PO SCH ×2 (08:43→20:36)
[2023-04-01] MEDS: oxyCODONE 5 MG Tab PO SCH (08:43)
[2023-04-01] MEDS: Simethicone 80 MG Tab.Chew PO SCH ×2 (08:43→20:37)
[2023-04-01] MEDS: Divalproex Sodium Delayed-Release 500 MG Tab.CR PO SCH ×2 (08:43→20:38)
[2023-04-01] MEDS: atorvaSTATin 40 MG Tab PO SCH (08:43)
[2023-04-01] MEDS: Lacosamide 100 MG Tab PO SCH ×2 (08:43→20:35)
[2023-04-01] MEDS: hydrOXYzine HCl 25 MG Tab PO SCH ×2 (08:43→20:36)
[2023-04-01] MEDS: Sennosides 8.6 MG Tab PO SCH (08:43)
[2023-04-01] MEDS: Carboxymethylcellulose Sodium 1% Ophth Gel 15 ML Bottle EYEBOTH SCH ×3 (08:48→20:38)
[2023-04-01] MEDS: Clotrimazole 1% Crm 30 GM Tube TOP SCH ×2 (08:49→20:38)
[2023-04-01] MEDS: Lidocaine 4% 1 each Patch TOP PRN (08:49)
[2023-04-01] MEDS: Enoxaparin 40 MG/0.4 ML Syringe SUBCUT SCH (14:53)
[2023-04-01] MEDS: Acetaminophen 325 MG Tab PO PRN (20:35)
[2023-04-01] MEDS: LORazepam 0.5 MG Tab PO PRN (20:35)
[2023-04-01] MEDS: QUEtiapine 100 MG Tab PO SCH (20:37)
[2023-04-02] MEDS: atorvaSTATin 40 MG Tab PO SCH (08:29)
[2023-04-02] MEDS: Venlafaxine 75 MG Cap.ER PO SCH (08:29)
[2023-04-02] MEDS: levETIRAcetam 500 MG Tab PO SCH ×2 (08:29→21:05)
[2023-04-02] MEDS: Lacosamide 100 MG Tab PO SCH ×2 (08:30→21:03)
[2023-04-02] MEDS: Sennosides 8.6 MG Tab PO SCH (08:30)
[2023-04-02] MEDS: hydrOXYzine HCl 25 MG Tab PO SCH ×2 (08:30→21:03)
[2023-04-02] MEDS: Simethicone 80 MG Tab.Chew PO SCH ×2 (08:30→21:05)
[2023-04-02] MEDS: Divalproex Sodium Delayed-Release 500 MG Tab.CR PO SCH ×2 (08:30→21:03)
[2023-04-02] MEDS: Sodium Chloride 1 GM Tab PO SCH ×2 (08:30→21:04)
[2023-04-02] MEDS: oxyCODONE 5 MG Tab PO SCH (08:30)
[2023-04-02] MEDS: Metoprolol Tartrate 25 MG Tab PO SCH ×2 (08:32→21:03)
[2023-04-02] MEDS: Clotrimazole 1% Crm 30 GM Tube TOP SCH ×2 (08:33→21:05)
[2023-04-02] MEDS: Lidocaine 4% 1 each Patch TOP PRN (08:34)
[2023-04-02] MEDS: Carboxymethylcellulose Sodium 1% Ophth Gel 15 ML Bottle EYEBOTH SCH ×3 (08:34→21:05)
[2023-04-02] MEDS: Enoxaparin 40 MG/0.4 ML Syringe SUBCUT SCH (15:17)
[2023-04-02] MEDS: LORazepam 0.5 MG Tab PO PRN (21:04)
[2023-04-02] MEDS: Acetaminophen 325 MG Tab PO PRN (21:04)
[2023-04-02] MEDS: QUEtiapine 100 MG Tab PO SCH (21:05)
[2023-04-03] MEDS: Metoprolol Tartrate 25 MG Tab PO SCH ×2 (08:44→20:58)
[2023-04-03] MEDS: Sodium Chloride 1 GM Tab PO SCH ×2 (08:45→21:01)
[2023-04-03] MEDS: Divalproex Sodium Delayed-Release 500 MG Tab.CR PO SCH ×2 (08:45→20:56)
[2023-04-03] MEDS: levETIRAcetam 500 MG Tab PO SCH ×2 (08:45→20:57)
[2023-04-03] MEDS: atorvaSTATin 40 MG Tab PO SCH (08:45)
[2023-04-03] MEDS: Clotrimazole 1% Crm 30 GM Tube TOP SCH ×2 (08:46→21:05)
[2023-04-03] MEDS: Sennosides 8.6 MG Tab PO SCH (08:46)
[2023-04-03] MEDS: Simethicone 80 MG Tab.Chew PO SCH ×2 (08:46→20:56)
[2023-04-03] MEDS: hydrOXYzine HCl 25 MG Tab PO SCH ×2 (08:46→20:58)
[2023-04-03] MEDS: oxyCODONE 5 MG Tab PO SCH (08:46)
[2023-04-03] MEDS: Lacosamide 100 MG Tab PO SCH ×2 (08:46→20:57)
[2023-04-03] MEDS: Lidocaine 4% 1 each Patch TOP PRN (08:46)
[2023-04-03] MEDS: Venlafaxine 75 MG Cap.ER PO SCH (08:46)
[2023-04-03] MEDS: Carboxymethylcellulose Sodium 1% Ophth Gel 15 ML Bottle EYEBOTH SCH ×3 (08:47→21:05)
[2023-04-03] MEDS: Enoxaparin 40 MG/0.4 ML Syringe SUBCUT SCH (14:14)
[2023-04-03] MEDS: QUEtiapine 100 MG Tab PO SCH (20:57)
[2023-04-03] MEDS: LORazepam 0.5 MG Tab PO PRN (21:01)
[2023-04-04] MEDS: Metoprolol Tartrate 25 MG Tab PO SCH ×2 (08:23→22:19)
[2023-04-04] MEDS: oxyCODONE 5 MG Tab PO SCH (08:24)
[2023-04-04] MEDS: levETIRAcetam 500 MG Tab PO SCH ×2 (08:25→22:18)
[2023-04-04] MEDS: Simethicone 80 MG Tab.Chew PO SCH ×2 (08:26→22:19)
[2023-04-04] MEDS: Sennosides 8.6 MG Tab PO SCH (08:26)
[2023-04-04] MEDS: Sodium Chloride 1 GM Tab PO SCH ×2 (08:26→22:19)
[2023-04-04] MEDS: hydrOXYzine HCl 25 MG Tab PO SCH ×2 (08:26→22:20)
[2023-04-04] MEDS: Lacosamide 100 MG Tab PO SCH ×2 (08:26→22:20)
[2023-04-04] MEDS: atorvaSTATin 40 MG Tab PO SCH (08:26)
[2023-04-04] MEDS: Divalproex Sodium Delayed-Release 500 MG Tab.CR PO SCH ×2 (08:26→22:19)
[2023-04-04] MEDS: Venlafaxine 75 MG Cap.ER PO SCH (08:26)
[2023-04-04] MEDS: Carboxymethylcellulose Sodium 1% Ophth Gel 15 ML Bottle EYEBOTH SCH ×3 (08:35→22:20)
[2023-04-04] MEDS: Clotrimazole 1% Crm 30 GM Tube TOP SCH ×2 (08:35→22:20)
[2023-04-04] MEDS: Lidocaine 4% 1 each Patch TOP PRN (08:35)
[2023-04-04] MEDS: Enoxaparin 40 MG/0.4 ML Syringe SUBCUT SCH (14:22)
[2023-04-04] MEDS: QUEtiapine 100 MG Tab PO SCH (22:19)
[2023-04-04] MEDS: Acetaminophen 325 MG Tab PO PRN (22:21)
[2023-04-05] MEDS: Divalproex Sodium Delayed-Release 500 MG Tab.CR PO SCH ×2 (08:30→20:53)
[2023-04-05] MEDS: Lacosamide 100 MG Tab PO SCH ×2 (08:30→20:53)
[2023-04-05] MEDS: levETIRAcetam 500 MG Tab PO SCH ×2 (08:31→20:53)
[2023-04-05] MEDS: Venlafaxine 75 MG Cap.ER PO SCH (08:31)
[2023-04-05] MEDS: atorvaSTATin 40 MG Tab PO SCH (08:31)
[2023-04-05] MEDS: Simethicone 80 MG Tab.Chew PO SCH ×2 (08:31→20:53)
[2023-04-05] MEDS: hydrOXYzine HCl 25 MG Tab PO SCH ×2 (08:31→20:53)
[2023-04-05] MEDS: Sodium Chloride 1 GM Tab PO SCH ×2 (08:32→20:53)
[2023-04-05] MEDS: Sennosides 8.6 MG Tab PO SCH (08:32)
[2023-04-05] MEDS: Metoprolol Tartrate 25 MG Tab PO SCH ×2 (08:32→20:52)
[2023-04-05] MEDS: oxyCODONE 5 MG Tab PO SCH (08:32)
[2023-04-05] MEDS: Clotrimazole 1% Crm 30 GM Tube TOP SCH ×2 (08:33→20:52)
[2023-04-05] MEDS: Carboxymethylcellulose Sodium 1% Ophth Gel 15 ML Bottle EYEBOTH SCH ×3 (08:33→20:52)
[2023-04-05] MEDS: Lidocaine 4% 1 each Patch TOP PRN (08:41)
[2023-04-05] MEDS: Enoxaparin 40 MG/0.4 ML Syringe SUBCUT SCH (14:33)
[2023-04-05] MEDS: Acetaminophen 325 MG Tab PO PRN (20:53)
[2023-04-05] MEDS: LORazepam 0.5 MG Tab PO PRN (20:53)
[2023-04-05] MEDS: QUEtiapine 100 MG Tab PO SCH (20:54)
[2023-04-06] MEDS: Lacosamide 100 MG Tab PO SCH ×2 (08:30→20:22)
[2023-04-06] MEDS: hydrOXYzine HCl 25 MG Tab PO SCH ×2 (08:30→20:22)
[2023-04-06] MEDS: atorvaSTATin 40 MG Tab PO SCH (08:30)
[2023-04-06] MEDS: Venlafaxine 75 MG Cap.ER PO SCH (08:31)
[2023-04-06] MEDS: Simethicone 80 MG Tab.Chew PO SCH ×2 (08:31→20:21)
[2023-04-06] MEDS: Metoprolol Tartrate 25 MG Tab PO SCH ×2 (08:31→20:22)
[2023-04-06] MEDS: Sennosides 8.6 MG Tab PO SCH (08:32)
[2023-04-06] MEDS: oxyCODONE 5 MG Tab PO SCH (08:32)
[2023-04-06] MEDS: levETIRAcetam 500 MG Tab PO SCH ×2 (08:32→20:22)
[2023-04-06] MEDS: Divalproex Sodium Delayed-Release 500 MG Tab.CR PO SCH ×2 (08:32→20:22)
[2023-04-06] MEDS: Carboxymethylcellulose Sodium 1% Ophth Gel 15 ML Bottle EYEBOTH SCH ×3 (08:33→20:21)
[2023-04-06] MEDS: Sodium Chloride 1 GM Tab PO SCH ×2 (08:33→20:23)
[2023-04-06] MEDS: Clotrimazole 1% Crm 30 GM Tube TOP SCH ×2 (08:33→20:21)
[2023-04-06] MEDS: Enoxaparin 40 MG/0.4 ML Syringe SUBCUT SCH (16:04)
[2023-04-06] MEDS: Acetaminophen 325 MG Tab PO PRN (20:22)
[2023-04-06] MEDS: LORazepam 0.5 MG Tab PO PRN (20:22)
[2023-04-06] MEDS: QUEtiapine 100 MG Tab PO SCH (20:23)
[2023-04-07] MEDS: Divalproex Sodium Delayed-Release 500 MG Tab.CR PO SCH ×2 (08:34→20:49)
[2023-04-07] MEDS: Sodium Chloride 1 GM Tab PO SCH ×2 (08:35→21:01)
[2023-04-07] MEDS: Acetaminophen 325 MG Tab PO PRN ×2 (08:35→21:02)
[2023-04-07] MEDS: Simethicone 80 MG Tab.Chew PO SCH ×2 (08:35→21:04)
[2023-04-07] MEDS: hydrOXYzine HCl 25 MG Tab PO SCH ×2 (08:36→20:48)
[2023-04-07] MEDS: oxyCODONE 5 MG Tab PO SCH (08:36)
[2023-04-07] MEDS: levETIRAcetam 500 MG Tab PO SCH ×2 (08:36→20:50)
[2023-04-07] MEDS: atorvaSTATin 40 MG Tab PO SCH (08:36)
[2023-04-07] MEDS: Venlafaxine 75 MG Cap.ER PO SCH (08:36)
[2023-04-07] MEDS: Lacosamide 100 MG Tab PO SCH ×2 (08:37→21:01)
[2023-04-07] MEDS: Sennosides 8.6 MG Tab PO SCH (08:37)
[2023-04-07] MEDS: Metoprolol Tartrate 25 MG Tab PO SCH ×2 (08:37→20:54)
[2023-04-07] MEDS: Clotrimazole 1% Crm 30 GM Tube TOP SCH ×2 (08:38→20:56)
[2023-04-07] MEDS: Carboxymethylcellulose Sodium 1% Ophth Gel 15 ML Bottle EYEBOTH SCH ×3 (08:38→20:58)
[2023-04-07] MEDS: Lidocaine 4% 1 each Patch TOP PRN (08:38)
[2023-04-07] MEDS: Enoxaparin 40 MG/0.4 ML Syringe SUBCUT SCH (15:18)
[2023-04-07] MEDS: QUEtiapine 100 MG Tab PO SCH (20:59)
[2023-04-08] MEDS: Acetaminophen 325 MG Tab PO PRN (08:55)
[2023-04-08] MEDS: Metoprolol Tartrate 25 MG Tab PO SCH ×2 (08:55→20:12)
[2023-04-08] MEDS: Lidocaine 4% 1 each Patch TOP PRN (08:55)
[2023-04-08] MEDS: atorvaSTATin 40 MG Tab PO SCH (08:55)
[2023-04-08] MEDS: hydrOXYzine HCl 25 MG Tab PO SCH ×2 (08:56→20:12)
[2023-04-08] MEDS: Sodium Chloride 1 GM Tab PO SCH ×2 (08:56→20:11)
[2023-04-08] MEDS: Simethicone 80 MG Tab.Chew PO SCH ×2 (08:56→20:10)
[2023-04-08] MEDS: Sennosides 8.6 MG Tab PO SCH (08:56)
[2023-04-08] MEDS: Lacosamide 100 MG Tab PO SCH ×2 (08:56→20:11)
[2023-04-08] MEDS: Divalproex Sodium Delayed-Release 500 MG Tab.CR PO SCH ×2 (08:56→20:11)
[2023-04-08] MEDS: oxyCODONE 5 MG Tab PO SCH (08:56)
[2023-04-08] MEDS: Carboxymethylcellulose Sodium 1% Ophth Gel 15 ML Bottle EYEBOTH SCH ×3 (08:57→20:14)
[2023-04-08] MEDS: levETIRAcetam 500 MG Tab PO SCH ×2 (08:57→20:10)
[2023-04-08] MEDS: Clotrimazole 1% Crm 30 GM Tube TOP SCH ×2 (08:57→20:13)
[2023-04-08] MEDS: Venlafaxine 75 MG Cap.ER PO SCH (08:57)
[2023-04-08] MEDS: Enoxaparin 40 MG/0.4 ML Syringe SUBCUT SCH (15:35)
[2023-04-08] MEDS: QUEtiapine 100 MG Tab PO SCH (20:12)
[2023-04-09] MEDS: Acetaminophen 325 MG Tab PO PRN (08:49)
[2023-04-09] MEDS: Simethicone 80 MG Tab.Chew PO SCH ×2 (08:50→20:39)
[2023-04-09] MEDS: oxyCODONE 5 MG Tab PO SCH (08:50)
[2023-04-09] MEDS: Divalproex Sodium Delayed-Release 500 MG Tab.CR PO SCH ×2 (08:50→20:37)
[2023-04-09] MEDS: Metoprolol Tartrate 25 MG Tab PO SCH ×2 (08:51→20:38)
[2023-04-09] MEDS: Venlafaxine 75 MG Cap.ER PO SCH (08:51)
[2023-04-09] MEDS: levETIRAcetam 500 MG Tab PO SCH ×2 (08:51→20:39)
[2023-04-09] MEDS: hydrOXYzine HCl 25 MG Tab PO SCH ×2 (08:51→20:38)
[2023-04-09] MEDS: atorvaSTATin 40 MG Tab PO SCH (08:51)
[2023-04-09] MEDS: Venlafaxine 37.5 MG Cap.ER PO SCH (08:52)
[2023-04-09] MEDS: Sodium Chloride 1 GM Tab PO SCH ×2 (08:52→20:35)
[2023-04-09] MEDS: Clotrimazole 1% Crm 30 GM Tube TOP SCH ×2 (08:53→20:40)
[2023-04-09] MEDS: Sennosides 8.6 MG Tab PO SCH (08:53)
[2023-04-09] MEDS: Lacosamide 100 MG Tab PO SCH ×2 (08:53→20:37)
[2023-04-09] MEDS: Carboxymethylcellulose Sodium 1% Ophth Gel 15 ML Bottle EYEBOTH SCH ×3 (08:53→20:40)
[2023-04-09] MEDS: Enoxaparin 40 MG/0.4 ML Syringe SUBCUT SCH (15:56)
[2023-04-09] MEDS: QUEtiapine 100 MG Tab PO SCH (20:39)
[2023-04-10] MEDS: atorvaSTATin 40 MG Tab PO SCH (08:39)
[2023-04-10] MEDS: hydrOXYzine HCl 25 MG Tab PO SCH ×2 (08:39→20:24)
[2023-04-10] MEDS: Simethicone 80 MG Tab.Chew PO SCH ×2 (08:39→20:22)
[2023-04-10] MEDS: Sodium Chloride 1 GM Tab PO SCH ×2 (08:39→20:21)
[2023-04-10] MEDS: oxyCODONE 5 MG Tab PO SCH (08:40)
[2023-04-10] MEDS: Metoprolol Tartrate 25 MG Tab PO SCH ×2 (08:42→20:20)
[2023-04-10] MEDS: Divalproex Sodium Delayed-Release 500 MG Tab.CR PO SCH ×2 (08:42→20:24)
[2023-04-10] MEDS: levETIRAcetam 500 MG Tab PO SCH ×2 (08:42→20:25)
[2023-04-10] MEDS: Sennosides 8.6 MG Tab PO SCH (08:42)
[2023-04-10] MEDS: Lacosamide 100 MG Tab PO SCH ×2 (08:45→20:23)
[2023-04-10] MEDS: Venlafaxine 75 MG Cap.ER PO SCH (08:45)
[2023-04-10] MEDS: Venlafaxine 37.5 MG Cap.ER PO SCH (08:46)
[2023-04-10] MEDS: Lidocaine 4% 1 each Patch TOP PRN (08:51)
[2023-04-10] MEDS: Clotrimazole 1% Crm 30 GM Tube TOP SCH ×2 (08:52→20:26)
[2023-04-10] MEDS: Carboxymethylcellulose Sodium 1% Ophth Gel 15 ML Bottle EYEBOTH SCH ×3 (08:52→20:27)
[2023-04-10] MEDS: Enoxaparin 40 MG/0.4 ML Syringe SUBCUT SCH (15:00)
[2023-04-10] MEDS: QUEtiapine 100 MG Tab PO SCH (20:23)
[2023-04-11] MEDS: Lacosamide 100 MG Tab PO SCH ×2 (08:53→20:21)
[2023-04-11] MEDS: Venlafaxine 75 MG Cap.ER PO SCH (08:53)
[2023-04-11] MEDS: Divalproex Sodium Delayed-Release 500 MG Tab.CR PO SCH ×2 (08:53→20:24)
[2023-04-11] MEDS: Sodium Chloride 1 GM Tab PO SCH ×2 (08:53→20:21)
[2023-04-11] MEDS: Venlafaxine 37.5 MG Cap.ER PO SCH (08:54)
[2023-04-11] MEDS: Metoprolol Tartrate 25 MG Tab PO SCH ×2 (08:54→20:24)
[2023-04-11] MEDS: hydrOXYzine HCl 25 MG Tab PO SCH ×2 (08:55→20:25)
[2023-04-11] MEDS: atorvaSTATin 40 MG Tab PO SCH (08:55)
[2023-04-11] MEDS: oxyCODONE 5 MG Tab PO SCH (08:55)
[2023-04-11] MEDS: Sennosides 8.6 MG Tab PO SCH (08:56)
[2023-04-11] MEDS: Simethicone 80 MG Tab.Chew PO SCH ×2 (08:56→20:22)
[2023-04-11] MEDS: levETIRAcetam 500 MG Tab PO SCH ×2 (08:56→20:23)
[2023-04-11] MEDS: Carboxymethylcellulose Sodium 1% Ophth Gel 15 ML Bottle EYEBOTH SCH ×3 (08:56→20:26)
[2023-04-11] MEDS: Clotrimazole 1% Crm 30 GM Tube TOP SCH ×2 (08:57→20:26)
[2023-04-11] MEDS: Enoxaparin 40 MG/0.4 ML Syringe SUBCUT SCH (15:59)
[2023-04-11] MEDS: QUEtiapine 100 MG Tab PO SCH (20:22)
[2023-04-11] MEDS: Acetaminophen 325 MG Tab PO PRN (20:24)
[2023-04-12] MEDS: hydrOXYzine HCl 25 MG Tab PO SCH ×2 (08:10→20:51)
[2023-04-12] MEDS: Simethicone 80 MG Tab.Chew PO SCH ×2 (08:10→20:53)
[2023-04-12] MEDS: oxyCODONE 5 MG Tab PO SCH (08:10)
[2023-04-12] MEDS: Venlafaxine 75 MG Cap.ER PO SCH (08:10)
[2023-04-12] MEDS: Sodium Chloride 1 GM Tab PO SCH ×2 (08:10→20:52)
[2023-04-12] MEDS: Divalproex Sodium Delayed-Release 500 MG Tab.CR PO SCH ×2 (08:10→20:51)
[2023-04-12] MEDS: Sennosides 8.6 MG Tab PO SCH (08:10)
[2023-04-12] MEDS: levETIRAcetam 500 MG Tab PO SCH ×2 (08:10→20:52)
[2023-04-12] MEDS: atorvaSTATin 40 MG Tab PO SCH (08:10)
[2023-04-12] MEDS: Venlafaxine 37.5 MG Cap.ER PO SCH (08:11)
[2023-04-12] MEDS: Metoprolol Tartrate 25 MG Tab PO SCH ×2 (08:11→20:53)
[2023-04-12] MEDS: Lacosamide 100 MG Tab PO SCH ×2 (08:11→20:52)
[2023-04-12] MEDS: Clotrimazole 1% Crm 30 GM Tube TOP SCH ×2 (08:18→20:54)
[2023-04-12] MEDS: Lidocaine 4% 1 each Patch TOP PRN (08:19)
[2023-04-12] MEDS: Carboxymethylcellulose Sodium 1% Ophth Gel 15 ML Bottle EYEBOTH SCH ×3 (08:19→20:54)
[2023-04-12] MEDS: Enoxaparin 40 MG/0.4 ML Syringe SUBCUT SCH (16:20)
[2023-04-12] MEDS: QUEtiapine 100 MG Tab PO SCH (20:52)
[2023-04-12] MEDS: Acetaminophen 325 MG Tab PO PRN (20:54)
[2023-04-13] MEDS: Simethicone 80 MG Tab.Chew PO SCH ×2 (09:16→20:41)
[2023-04-13] MEDS: levETIRAcetam 500 MG Tab PO SCH ×2 (09:17→20:42)
[2023-04-13] MEDS: Sodium Chloride 1 GM Tab PO SCH ×2 (09:17→20:40)
[2023-04-13] MEDS: oxyCODONE 5 MG Tab PO SCH (09:17)
[2023-04-13] MEDS: Divalproex Sodium Delayed-Release 500 MG Tab.CR PO SCH ×2 (09:17→20:41)
[2023-04-13] MEDS: atorvaSTATin 40 MG Tab PO SCH (09:17)
[2023-04-13] MEDS: hydrOXYzine HCl 25 MG Tab PO SCH ×2 (09:18→20:40)
[2023-04-13] MEDS: Lacosamide 100 MG Tab PO SCH ×2 (09:18→20:42)
[2023-04-13] MEDS: Metoprolol Tartrate 25 MG Tab PO SCH ×2 (09:18→20:42)
[2023-04-13] MEDS: Sennosides 8.6 MG Tab PO SCH (09:18)
[2023-04-13] MEDS: Venlafaxine 75 MG Cap.ER PO SCH (09:18)
[2023-04-13] MEDS: Clotrimazole 1% Crm 30 GM Tube TOP SCH ×2 (09:18→20:43)
[2023-04-13] MEDS: Venlafaxine 37.5 MG Cap.ER PO SCH (09:18)
[2023-04-13] MEDS: Lidocaine 4% 1 each Patch TOP PRN (09:19)
[2023-04-13] MEDS: Carboxymethylcellulose Sodium 1% Ophth Gel 15 ML Bottle EYEBOTH SCH ×3 (09:19→20:43)
[2023-04-13] MEDS: Enoxaparin 40 MG/0.4 ML Syringe SUBCUT SCH (15:43)
[2023-04-13] MEDS: QUEtiapine 100 MG Tab PO SCH (20:41)
[2023-04-14] MEDS: Lidocaine 4% 1 each Patch TOP PRN (09:08)
[2023-04-14] MEDS: levETIRAcetam 500 MG Tab PO SCH ×2 (09:09→21:32)
[2023-04-14] MEDS: Metoprolol Tartrate 25 MG Tab PO SCH ×2 (09:09→21:34)
[2023-04-14] MEDS: Simethicone 80 MG Tab.Chew PO SCH ×2 (09:09→21:33)
[2023-04-14] MEDS: Carboxymethylcellulose Sodium 1% Ophth Gel 15 ML Bottle EYEBOTH SCH ×3 (09:10→21:34)
[2023-04-14] MEDS: Divalproex Sodium Delayed-Release 500 MG Tab.CR PO SCH ×2 (09:10→21:33)
[2023-04-14] MEDS: Venlafaxine 75 MG Cap.ER PO SCH (09:10)
[2023-04-14] MEDS: Lacosamide 100 MG Tab PO SCH ×2 (09:10→21:33)
[2023-04-14] MEDS: Venlafaxine 37.5 MG Cap.ER PO SCH (09:10)
[2023-04-14] MEDS: Sodium Chloride 1 GM Tab PO SCH ×2 (09:10→21:32)
[2023-04-14] MEDS: Clotrimazole 1% Crm 30 GM Tube TOP SCH ×2 (09:10→21:34)
[2023-04-14] MEDS: Sennosides 8.6 MG Tab PO SCH (09:10)
[2023-04-14] MEDS: atorvaSTATin 40 MG Tab PO SCH (09:10)
[2023-04-14] MEDS: hydrOXYzine HCl 25 MG Tab PO SCH ×2 (09:11→21:33)
[2023-04-14] MEDS: oxyCODONE 5 MG Tab PO SCH (09:11)
[2023-04-14] MEDS: Enoxaparin 40 MG/0.4 ML Syringe SUBCUT SCH (15:54)
[2023-04-14] MEDS: Acetaminophen 325 MG Tab PO PRN (21:33)
[2023-04-14] MEDS: LORazepam 0.5 MG Tab PO PRN (21:33)
[2023-04-14] MEDS: QUEtiapine 100 MG Tab PO SCH (21:33)
[2023-04-15] MEDS: Lidocaine 4% 1 each Patch TOP PRN (08:39)
[2023-04-15] MEDS: Clotrimazole 1% Crm 30 GM Tube TOP SCH ×2 (08:39→21:22)
[2023-04-15] MEDS: Carboxymethylcellulose Sodium 1% Ophth Gel 15 ML Bottle EYEBOTH SCH ×3 (08:40→21:22)
[2023-04-15] MEDS: Venlafaxine 75 MG Cap.ER PO SCH (08:40)
[2023-04-15] MEDS: oxyCODONE 5 MG Tab PO SCH (08:40)
[2023-04-15] MEDS: hydrOXYzine HCl 25 MG Tab PO SCH ×2 (08:42→21:20)
[2023-04-15] MEDS: Sodium Chloride 1 GM Tab PO SCH ×2 (08:42→21:21)
[2023-04-15] MEDS: Sennosides 8.6 MG Tab PO SCH (08:42)
[2023-04-15] MEDS: Metoprolol Tartrate 25 MG Tab PO SCH ×2 (08:42→21:20)
[2023-04-15] MEDS: Simethicone 80 MG Tab.Chew PO SCH ×2 (08:42→21:22)
[2023-04-15] MEDS: Divalproex Sodium Delayed-Release 500 MG Tab.CR PO SCH ×2 (08:42→21:21)
[2023-04-15] MEDS: Lacosamide 100 MG Tab PO SCH ×2 (08:42→21:21)
[2023-04-15] MEDS: atorvaSTATin 40 MG Tab PO SCH (08:42)
[2023-04-15] MEDS: levETIRAcetam 500 MG Tab PO SCH ×2 (08:43→21:20)
[2023-04-15] MEDS: Venlafaxine 37.5 MG Cap.ER PO SCH (08:43)
[2023-04-15] MEDS: Enoxaparin 40 MG/0.4 ML Syringe SUBCUT SCH (15:09)
[2023-04-15] MEDS: LORazepam 0.5 MG Tab PO PRN (21:20)
[2023-04-15] MEDS: Acetaminophen 325 MG Tab PO PRN (21:21)
[2023-04-15] MEDS: QUEtiapine 100 MG Tab PO SCH (21:22)
[2023-04-16] MEDS: atorvaSTATin 40 MG Tab PO SCH (08:56)
[2023-04-16] MEDS: Venlafaxine 37.5 MG Cap.ER PO SCH (08:57)
[2023-04-16] MEDS: Sodium Chloride 1 GM Tab PO SCH ×2 (08:57→20:49)
[2023-04-16] MEDS: oxyCODONE 5 MG Tab PO SCH (08:57)
[2023-04-16] MEDS: Lidocaine 4% 1 each Patch TOP PRN (08:58)
[2023-04-16] MEDS: Simethicone 80 MG Tab.Chew PO SCH ×2 (08:58→20:49)
[2023-04-16] MEDS: Divalproex Sodium Delayed-Release 500 MG Tab.CR PO SCH ×2 (08:58→20:49)
[2023-04-16] MEDS: Venlafaxine 75 MG Cap.ER PO SCH (08:58)
[2023-04-16] MEDS: levETIRAcetam 500 MG Tab PO SCH ×2 (08:58→20:50)
[2023-04-16] MEDS: Sennosides 8.6 MG Tab PO SCH (08:58)
[2023-04-16] MEDS: hydrOXYzine HCl 25 MG Tab PO SCH ×2 (08:58→20:49)
[2023-04-16] MEDS: Metoprolol Tartrate 25 MG Tab PO SCH ×2 (08:58→20:51)
[2023-04-16] MEDS: Lacosamide 100 MG Tab PO SCH ×2 (08:58→20:49)
[2023-04-16] MEDS: Carboxymethylcellulose Sodium 1% Ophth Gel 15 ML Bottle EYEBOTH SCH ×3 (08:59→20:50)
[2023-04-16] MEDS: Clotrimazole 1% Crm 30 GM Tube TOP SCH ×2 (08:59→20:50)
[2023-04-16] MEDS: Enoxaparin 40 MG/0.4 ML Syringe SUBCUT SCH (15:14)
[2023-04-16] MEDS: QUEtiapine 100 MG Tab PO SCH (20:49)
[2023-04-17] MEDS: Metoprolol Tartrate 25 MG Tab PO SCH ×2 (08:57→20:19)
[2023-04-17] MEDS: Sodium Chloride 1 GM Tab PO SCH ×2 (09:01→20:18)
[2023-04-17] MEDS: Sennosides 8.6 MG Tab PO SCH (09:01)
[2023-04-17] MEDS: levETIRAcetam 500 MG Tab PO SCH ×2 (09:01→20:17)
[2023-04-17] MEDS: Simethicone 80 MG Tab.Chew PO SCH ×2 (09:01→20:18)
[2023-04-17] MEDS: atorvaSTATin 40 MG Tab PO SCH (09:02)
[2023-04-17] MEDS: oxyCODONE 5 MG Tab PO SCH (09:02)
[2023-04-17] MEDS: Venlafaxine 75 MG Cap.ER PO SCH (09:02)
[2023-04-17] MEDS: hydrOXYzine HCl 25 MG Tab PO SCH ×2 (09:02→20:19)
[2023-04-17] MEDS: Lacosamide 100 MG Tab PO SCH ×2 (09:02→20:19)
[2023-04-17] MEDS: Divalproex Sodium Delayed-Release 500 MG Tab.CR PO SCH ×2 (09:02→20:18)
[2023-04-17] MEDS: Lidocaine 4% 1 each Patch TOP PRN (09:04)
[2023-04-17] MEDS: Carboxymethylcellulose Sodium 1% Ophth Gel 15 ML Bottle EYEBOTH SCH ×3 (09:04→20:21)
[2023-04-17] MEDS: Clotrimazole 1% Crm 30 GM Tube TOP SCH ×2 (09:04→20:20)
[2023-04-17] MEDS: Enoxaparin 40 MG/0.4 ML Syringe SUBCUT SCH (14:26)
[2023-04-17] MEDS: QUEtiapine 100 MG Tab PO SCH (20:19)
[2023-04-18] MEDS: Lidocaine 4% 1 each Patch TOP PRN (08:23)
[2023-04-18] MEDS: Clotrimazole 1% Crm 30 GM Tube TOP SCH ×2 (08:23→20:40)
[2023-04-18] MEDS: Carboxymethylcellulose Sodium 1% Ophth Gel 15 ML Bottle EYEBOTH SCH ×3 (08:24→20:40)
[2023-04-18] MEDS: Simethicone 80 MG Tab.Chew PO SCH ×2 (08:24→20:36)
[2023-04-18] MEDS: Sodium Chloride 1 GM Tab PO SCH ×2 (08:25→20:36)
[2023-04-18] MEDS: Venlafaxine 75 MG Cap.ER PO SCH (08:25)
[2023-04-18] MEDS: hydrOXYzine HCl 25 MG Tab PO SCH ×2 (08:25→20:38)
[2023-04-18] MEDS: Sennosides 8.6 MG Tab PO SCH (08:25)
[2023-04-18] MEDS: atorvaSTATin 40 MG Tab PO SCH (08:25)
[2023-04-18] MEDS: Metoprolol Tartrate 25 MG Tab PO SCH ×2 (08:25→20:38)
[2023-04-18] MEDS: levETIRAcetam 500 MG Tab PO SCH ×2 (08:25→20:35)
[2023-04-18] MEDS: Lacosamide 100 MG Tab PO SCH ×2 (08:25→20:35)
[2023-04-18] MEDS: oxyCODONE 5 MG Tab PO SCH (08:26)
[2023-04-18] MEDS: Divalproex Sodium Delayed-Release 500 MG Tab.CR PO SCH ×2 (08:27→20:37)
[2023-04-18] MEDS: Enoxaparin 40 MG/0.4 ML Syringe SUBCUT SCH (15:35)
[2023-04-18] MEDS: Acetaminophen 325 MG Tab PO PRN (20:37)
[2023-04-18] MEDS: QUEtiapine 100 MG Tab PO SCH (20:38)
[2023-04-18] MEDS: LORazepam 0.5 MG Tab PO PRN (22:32)
[2023-04-19] MEDS: Carboxymethylcellulose Sodium 1% Ophth Gel 15 ML Bottle EYEBOTH SCH ×3 (09:14→20:36)
[2023-04-19] MEDS: Lidocaine 4% 1 each Patch TOP PRN (09:14)
[2023-04-19] MEDS: Clotrimazole 1% Crm 30 GM Tube TOP SCH ×2 (09:14→20:36)
[2023-04-19] MEDS: atorvaSTATin 40 MG Tab PO SCH (09:15)
[2023-04-19] MEDS: Sennosides 8.6 MG Tab PO SCH (09:16)
[2023-04-19] MEDS: Venlafaxine 75 MG Cap.ER PO SCH (09:16)
[2023-04-19] MEDS: Simethicone 80 MG Tab.Chew PO SCH ×2 (09:16→20:34)
[2023-04-19] MEDS: levETIRAcetam 500 MG Tab PO SCH ×2 (09:16→20:35)
[2023-04-19] MEDS: oxyCODONE 5 MG Tab PO SCH (09:17)
[2023-04-19] MEDS: Metoprolol Tartrate 25 MG Tab PO SCH ×2 (09:17→20:32)
[2023-04-19] MEDS: hydrOXYzine HCl 25 MG Tab PO SCH ×2 (09:17→20:33)
[2023-04-19] MEDS: Divalproex Sodium Delayed-Release 500 MG Tab.CR PO SCH ×2 (09:17→20:31)
[2023-04-19] MEDS: Lacosamide 100 MG Tab PO SCH ×2 (09:17→20:32)
[2023-04-19] MEDS: Sodium Chloride 1 GM Tab PO SCH ×2 (09:17→20:31)
[2023-04-19] MEDS: Enoxaparin 40 MG/0.4 ML Syringe SUBCUT SCH (14:13)
[2023-04-19] MEDS: QUEtiapine 100 MG Tab PO SCH (20:34)
[2023-04-19] MEDS: Acetaminophen 325 MG Tab PO PRN (20:42)
[2023-04-19] MEDS: LORazepam 0.5 MG Tab PO PRN (20:44)
[2023-04-20] MEDS: Clotrimazole 1% Crm 30 GM Tube TOP SCH ×2 (08:36→21:18)
[2023-04-20] MEDS: Sennosides 8.6 MG Tab PO SCH (08:37)
[2023-04-20] MEDS: Acetaminophen 325 MG Tab PO PRN ×2 (08:37→21:13)
[2023-04-20] MEDS: Lacosamide 100 MG Tab PO SCH ×2 (08:37→21:18)
[2023-04-20] MEDS: Carboxymethylcellulose Sodium 1% Ophth Gel 15 ML Bottle EYEBOTH SCH ×3 (08:37→21:18)
[2023-04-20] MEDS: levETIRAcetam 500 MG Tab PO SCH ×2 (08:37→21:17)
[2023-04-20] MEDS: Divalproex Sodium Delayed-Release 500 MG Tab.CR PO SCH ×2 (08:38→21:18)
[2023-04-20] MEDS: Sodium Chloride 1 GM Tab PO SCH ×2 (08:38→21:18)
[2023-04-20] MEDS: Simethicone 80 MG Tab.Chew PO SCH ×2 (08:39→21:16)
[2023-04-20] MEDS: Metoprolol Tartrate 25 MG Tab PO SCH ×2 (08:39→21:16)
[2023-04-20] MEDS: oxyCODONE 5 MG Tab PO SCH (08:39)
[2023-04-20] MEDS: Venlafaxine 75 MG Cap.ER PO SCH (08:39)
[2023-04-20] MEDS: hydrOXYzine HCl 25 MG Tab PO SCH ×2 (08:40→21:16)
[2023-04-20] MEDS: atorvaSTATin 40 MG Tab PO SCH (08:40)
[2023-04-20] MEDS: Enoxaparin 40 MG/0.4 ML Syringe SUBCUT SCH (15:15)
[2023-04-20] MEDS: QUEtiapine 100 MG Tab PO SCH (21:16)
[2023-04-20] MEDS: LORazepam 0.5 MG Tab PO PRN (21:17)
[2023-04-21] MEDS: Clotrimazole 1% Crm 30 GM Tube TOP SCH ×2 (08:35→19:59)
[2023-04-21] MEDS: Acetaminophen 325 MG Tab PO PRN (08:35)
[2023-04-21] MEDS: Carboxymethylcellulose Sodium 1% Ophth Gel 15 ML Bottle EYEBOTH SCH ×3 (08:35→19:59)
[2023-04-21] MEDS: Sodium Chloride 1 GM Tab PO SCH ×2 (08:35→19:59)
[2023-04-21] MEDS: levETIRAcetam 500 MG Tab PO SCH ×2 (08:36→20:00)
[2023-04-21] MEDS: Metoprolol Tartrate 25 MG Tab PO SCH ×2 (08:36→19:59)
[2023-04-21] MEDS: hydrOXYzine HCl 25 MG Tab PO SCH ×2 (08:36→20:00)
[2023-04-21] MEDS: Simethicone 80 MG Tab.Chew PO SCH ×2 (08:36→19:59)
[2023-04-21] MEDS: Venlafaxine 75 MG Cap.ER PO SCH (08:36)
[2023-04-21] MEDS: atorvaSTATin 40 MG Tab PO SCH (08:36)
[2023-04-21] MEDS: Divalproex Sodium Delayed-Release 500 MG Tab.CR PO SCH ×2 (08:37→20:00)
[2023-04-21] MEDS: oxyCODONE 5 MG Tab PO SCH (08:37)
[2023-04-21] MEDS: Lacosamide 100 MG Tab PO SCH ×2 (08:37→19:59)
[2023-04-21] MEDS: Sennosides 8.6 MG Tab PO SCH (11:33)
[2023-04-21] MEDS: Enoxaparin 40 MG/0.4 ML Syringe SUBCUT SCH (14:34)
[2023-04-21] MEDS: QUEtiapine 100 MG Tab PO SCH (19:59)
[2023-04-22] MEDS: levETIRAcetam 500 MG Tab PO SCH ×2 (10:35→20:18)
[2023-04-22] MEDS: Divalproex Sodium Delayed-Release 500 MG Tab.CR PO SCH ×2 (10:36→20:18)
[2023-04-22] MEDS: Venlafaxine 75 MG Cap.ER PO SCH (10:36)
[2023-04-22] MEDS: atorvaSTATin 40 MG Tab PO SCH (10:36)
[2023-04-22] MEDS: Simethicone 80 MG Tab.Chew PO SCH ×2 (10:36→20:17)
[2023-04-22] MEDS: oxyCODONE 5 MG Tab PO SCH (10:37)
[2023-04-22] MEDS: Sodium Chloride 1 GM Tab PO SCH ×2 (10:37→20:17)
[2023-04-22] MEDS: Lacosamide 100 MG Tab PO SCH ×2 (10:37→20:17)
[2023-04-22] MEDS: Sennosides 8.6 MG Tab PO SCH (10:37)
[2023-04-22] MEDS: Clotrimazole 1% Crm 30 GM Tube TOP SCH ×2 (10:38→20:17)
[2023-04-22] MEDS: hydrOXYzine HCl 25 MG Tab PO SCH ×2 (10:38→20:18)
[2023-04-22] MEDS: Carboxymethylcellulose Sodium 1% Ophth Gel 15 ML Bottle EYEBOTH SCH ×3 (10:38→20:17)
[2023-04-22] MEDS: Metoprolol Tartrate 25 MG Tab PO SCH ×2 (10:38→20:17)
[2023-04-22] MEDS: Enoxaparin 40 MG/0.4 ML Syringe SUBCUT SCH (14:56)
[2023-04-22] MEDS: LORazepam 0.5 MG Tab PO PRN (20:16)
[2023-04-22] MEDS: Acetaminophen 325 MG Tab PO PRN (20:16)
[2023-04-22] MEDS: QUEtiapine 100 MG Tab PO SCH (20:17)
[2023-04-23] MEDS: Metoprolol Tartrate 25 MG Tab PO SCH ×2 (08:48→20:07)
[2023-04-23] MEDS: Simethicone 80 MG Tab.Chew PO SCH ×2 (08:49→20:07)
[2023-04-23] MEDS: Sennosides 8.6 MG Tab PO SCH (08:50)
[2023-04-23] MEDS: Venlafaxine 75 MG Cap.ER PO SCH (08:50)
[2023-04-23] MEDS: levETIRAcetam 500 MG Tab PO SCH ×2 (08:51→20:06)
[2023-04-23] MEDS: Divalproex Sodium Delayed-Release 500 MG Tab.CR PO SCH ×2 (08:51→20:06)
[2023-04-23] MEDS: oxyCODONE 5 MG Tab PO SCH (08:51)
[2023-04-23] MEDS: atorvaSTATin 40 MG Tab PO SCH (08:52)
[2023-04-23] MEDS: Sodium Chloride 1 GM Tab PO SCH ×2 (08:52→20:06)
[2023-04-23] MEDS: Lacosamide 100 MG Tab PO SCH ×2 (08:52→20:07)
[2023-04-23] MEDS: hydrOXYzine HCl 25 MG Tab PO SCH ×2 (08:52→20:07)
[2023-04-23] MEDS: Clotrimazole 1% Crm 30 GM Tube TOP SCH ×2 (08:53→20:05)
[2023-04-23] MEDS: Lidocaine 4% 1 each Patch TOP PRN (08:53)
[2023-04-23] MEDS: Carboxymethylcellulose Sodium 1% Ophth Gel 15 ML Bottle EYEBOTH SCH ×3 (08:53→20:05)
[2023-04-23] MEDS: Enoxaparin 40 MG/0.4 ML Syringe SUBCUT SCH (15:07)
[2023-04-23] MEDS: QUEtiapine 100 MG Tab PO SCH (20:06)
[2023-04-23] MEDS: LORazepam 0.5 MG Tab PO PRN (20:14)
[2023-04-23] MEDS: Acetaminophen 325 MG Tab PO PRN (20:14)
[2023-04-24] MEDS: Simethicone 80 MG Tab.Chew PO SCH ×2 (09:50→20:24)
[2023-04-24] MEDS: Venlafaxine 75 MG Cap.ER PO SCH (09:51)
[2023-04-24] MEDS: Sennosides 8.6 MG Tab PO SCH (09:51)
[2023-04-24] MEDS: Lacosamide 100 MG Tab PO SCH ×2 (09:51→20:25)
[2023-04-24] MEDS: hydrOXYzine HCl 25 MG Tab PO SCH ×2 (09:52→20:28)
[2023-04-24] MEDS: atorvaSTATin 40 MG Tab PO SCH (09:53)
[2023-04-24] MEDS: oxyCODONE 5 MG Tab PO SCH (09:53)
[2023-04-24] MEDS: Metoprolol Tartrate 25 MG Tab PO SCH ×2 (09:53→20:28)
[2023-04-24] MEDS: levETIRAcetam 500 MG Tab PO SCH ×2 (09:54→20:25)
[2023-04-24] MEDS: Sodium Chloride 1 GM Tab PO SCH ×2 (09:54→20:27)
[2023-04-24] MEDS: Divalproex Sodium Delayed-Release 500 MG Tab.CR PO SCH ×2 (09:54→20:26)
[2023-04-24] MEDS: Lidocaine 4% 1 each Patch TOP PRN (09:55)
[2023-04-24] MEDS: Clotrimazole 1% Crm 30 GM Tube TOP SCH ×2 (09:55→20:30)
[2023-04-24] MEDS: Carboxymethylcellulose Sodium 1% Ophth Gel 15 ML Bottle EYEBOTH SCH ×3 (09:55→20:29)
[2023-04-24] MEDS: Enoxaparin 40 MG/0.4 ML Syringe SUBCUT SCH (15:50)
[2023-04-24] MEDS: QUEtiapine 100 MG Tab PO SCH (20:28)
[2023-04-24] MEDS: Acetaminophen 325 MG Tab PO PRN (20:56)
[2023-04-24] MEDS: LORazepam 0.5 MG Tab PO PRN (22:14)
[2023-04-25] MEDS: Lidocaine 4% 1 each Patch TOP PRN (07:50)
[2023-04-25] MEDS: Lacosamide 100 MG Tab PO SCH ×2 (07:59→20:13)
[2023-04-25] MEDS: oxyCODONE 5 MG Tab PO SCH (07:59)
[2023-04-25] MEDS: Venlafaxine 75 MG Cap.ER PO SCH (08:00)
[2023-04-25] MEDS: hydrOXYzine HCl 25 MG Tab PO SCH ×2 (08:00→20:13)
[2023-04-25] MEDS: levETIRAcetam 500 MG Tab PO SCH ×2 (08:00→20:12)
[2023-04-25] MEDS: Divalproex Sodium Delayed-Release 500 MG Tab.CR PO SCH ×2 (08:00→20:13)
[2023-04-25] MEDS: Carboxymethylcellulose Sodium 1% Ophth Gel 15 ML Bottle EYEBOTH SCH ×3 (08:00→20:20)
[2023-04-25] MEDS: atorvaSTATin 40 MG Tab PO SCH (08:00)
[2023-04-25] MEDS: Clotrimazole 1% Crm 30 GM Tube TOP SCH ×2 (08:00→20:20)
[2023-04-25] MEDS: Sennosides 8.6 MG Tab PO SCH (08:01)
[2023-04-25] MEDS: Sodium Chloride 1 GM Tab PO SCH ×2 (08:01→20:13)
[2023-04-25] MEDS: Metoprolol Tartrate 25 MG Tab PO SCH ×2 (08:01→20:14)
[2023-04-25] MEDS: Simethicone 80 MG Tab.Chew PO SCH ×2 (08:01→20:13)
[2023-04-25] MEDS: Enoxaparin 40 MG/0.4 ML Syringe SUBCUT SCH (15:16)
[2023-04-25] MEDS: QUEtiapine 100 MG Tab PO SCH (20:10)
[2023-04-25] MEDS: LORazepam 0.5 MG Tab PO PRN (20:19)
[2023-04-26] MEDS: Simethicone 80 MG Tab.Chew PO SCH ×2 (09:07→20:38)
[2023-04-26] MEDS: oxyCODONE 5 MG Tab PO SCH (09:07)
[2023-04-26] MEDS: Sennosides 8.6 MG Tab PO SCH (09:07)
[2023-04-26] MEDS: Divalproex Sodium Delayed-Release 500 MG Tab.CR PO SCH ×2 (09:08→20:39)
[2023-04-26] MEDS: Metoprolol Tartrate 25 MG Tab PO SCH ×2 (09:08→20:38)
[2023-04-26] MEDS: Venlafaxine 75 MG Cap.ER PO SCH (09:09)
[2023-04-26] MEDS: hydrOXYzine HCl 25 MG Tab PO SCH ×2 (09:09→20:39)
[2023-04-26] MEDS: levETIRAcetam 500 MG Tab PO SCH ×2 (09:09→20:37)
[2023-04-26] MEDS: Sodium Chloride 1 GM Tab PO SCH ×2 (09:09→20:37)
[2023-04-26] MEDS: atorvaSTATin 40 MG Tab PO SCH (09:09)
[2023-04-26] MEDS: Lacosamide 100 MG Tab PO SCH ×2 (09:09→20:38)
[2023-04-26] MEDS: Clotrimazole 1% Crm 30 GM Tube TOP SCH ×2 (09:10→20:39)
[2023-04-26] MEDS: Carboxymethylcellulose Sodium 1% Ophth Gel 15 ML Bottle EYEBOTH SCH ×3 (09:10→20:39)
[2023-04-26] MEDS: Lidocaine 4% 1 each Patch TOP PRN (10:10)
[2023-04-26] MEDS: Enoxaparin 40 MG/0.4 ML Syringe SUBCUT SCH (15:01)
[2023-04-26] MEDS: QUEtiapine 100 MG Tab PO SCH (20:36)
[2023-04-26] MEDS: LORazepam 0.5 MG Tab PO PRN (20:38)
[2023-04-26] MEDS: Acetaminophen 325 MG Tab PO PRN (21:17)
[2023-04-27] MEDS: Sodium Chloride 1 GM Tab PO SCH ×2 (08:17→21:01)
[2023-04-27] MEDS: Divalproex Sodium Delayed-Release 500 MG Tab.CR PO SCH ×2 (08:17→21:03)
[2023-04-27] MEDS: Simethicone 80 MG Tab.Chew PO SCH ×2 (08:17→21:01)
[2023-04-27] MEDS: oxyCODONE 5 MG Tab PO SCH (08:18)
[2023-04-27] MEDS: Lacosamide 100 MG Tab PO SCH ×2 (08:18→21:02)
[2023-04-27] MEDS: levETIRAcetam 500 MG Tab PO SCH ×2 (08:19→21:03)
[2023-04-27] MEDS: hydrOXYzine HCl 25 MG Tab PO SCH ×2 (08:19→21:02)
[2023-04-27] MEDS: atorvaSTATin 40 MG Tab PO SCH (08:19)
[2023-04-27] MEDS: Venlafaxine 75 MG Cap.ER PO SCH (08:19)
[2023-04-27] MEDS: Lidocaine 4% 1 each Patch TOP PRN (08:20)
[2023-04-27] MEDS: Metoprolol Tartrate 25 MG Tab PO SCH ×2 (08:20→21:01)
[2023-04-27] MEDS: Sennosides 8.6 MG Tab PO SCH (08:20)
[2023-04-27] MEDS: Carboxymethylcellulose Sodium 1% Ophth Gel 15 ML Bottle EYEBOTH SCH ×3 (08:21→21:03)
[2023-04-27] MEDS: Clotrimazole 1% Crm 30 GM Tube TOP SCH ×2 (08:21→21:03)
[2023-04-27] MEDS: Enoxaparin 40 MG/0.4 ML Syringe SUBCUT SCH (15:48)
[2023-04-27] MEDS: LORazepam 0.5 MG Tab PO PRN (21:02)
[2023-04-27] MEDS: QUEtiapine 100 MG Tab PO SCH (21:02)
[2023-04-27] MEDS: Acetaminophen 325 MG Tab PO PRN (21:02)
[2023-04-28] MEDS: Lidocaine 4% 1 each Patch TOP PRN (08:18)
[2023-04-28] MEDS: levETIRAcetam 500 MG Tab PO SCH ×2 (08:18→20:14)
[2023-04-28] MEDS: Carboxymethylcellulose Sodium 1% Ophth Gel 15 ML Bottle EYEBOTH SCH ×3 (08:18→20:15)
[2023-04-28] MEDS: Clotrimazole 1% Crm 30 GM Tube TOP SCH ×2 (08:18→20:18)
[2023-04-28] MEDS: Simethicone 80 MG Tab.Chew PO SCH ×2 (08:18→20:13)
[2023-04-28] MEDS: atorvaSTATin 40 MG Tab PO SCH (08:19)
[2023-04-28] MEDS: hydrOXYzine HCl 25 MG Tab PO SCH ×2 (08:19→20:12)
[2023-04-28] MEDS: Metoprolol Tartrate 25 MG Tab PO SCH ×2 (08:19→20:17)
[2023-04-28] MEDS: Divalproex Sodium Delayed-Release 500 MG Tab.CR PO SCH ×2 (08:19→20:14)
[2023-04-28] MEDS: Lacosamide 100 MG Tab PO SCH ×2 (08:19→20:12)
[2023-04-28] MEDS: Sennosides 8.6 MG Tab PO SCH (08:19)
[2023-04-28] MEDS: Sodium Chloride 1 GM Tab PO SCH ×2 (08:19→20:12)
[2023-04-28] MEDS: Venlafaxine 75 MG Cap.ER PO SCH (08:19)
[2023-04-28] MEDS: oxyCODONE 5 MG Tab PO SCH (08:19)
[2023-04-28] MEDS: QUEtiapine 100 MG Tab PO SCH (20:12)
[2023-04-28] MEDS: Acetaminophen 325 MG Tab PO PRN (20:14)
[2023-04-28] MEDS: LORazepam 0.5 MG Tab PO PRN (20:28)
[2023-04-28] MEDS: Enoxaparin 40 MG/0.4 ML Syringe SUBCUT SCH (23:50)
[2023-04-29] MEDS: Divalproex Sodium Delayed-Release 500 MG Tab.CR PO SCH ×2 (09:57→20:09)
[2023-04-29] MEDS: hydrOXYzine HCl 25 MG Tab PO SCH ×2 (09:57→20:10)
[2023-04-29] MEDS: Venlafaxine 75 MG Cap.ER PO SCH (09:58)
[2023-04-29] MEDS: Sodium Chloride 1 GM Tab PO SCH ×2 (09:58→20:07)
[2023-04-29] MEDS: atorvaSTATin 40 MG Tab PO SCH (09:58)
[2023-04-29] MEDS: Sennosides 8.6 MG Tab PO SCH (09:58)
[2023-04-29] MEDS: levETIRAcetam 500 MG Tab PO SCH ×2 (09:58→20:09)
[2023-04-29] MEDS: Lacosamide 100 MG Tab PO SCH ×2 (09:58→20:10)
[2023-04-29] MEDS: Metoprolol Tartrate 25 MG Tab PO SCH ×2 (09:59→20:10)
[2023-04-29] MEDS: Simethicone 80 MG Tab.Chew PO SCH ×2 (09:59→20:06)
[2023-04-29] MEDS: oxyCODONE 5 MG Tab PO SCH (09:59)
[2023-04-29] MEDS: Clotrimazole 1% Crm 30 GM Tube TOP SCH ×2 (10:00→20:11)
[2023-04-29] MEDS: Carboxymethylcellulose Sodium 1% Ophth Gel 15 ML Bottle EYEBOTH SCH ×3 (10:00→20:11)
[2023-04-29] MEDS: Lidocaine 4% 1 each Patch TOP PRN (10:00)
[2023-04-29] MEDS: Enoxaparin 40 MG/0.4 ML Syringe SUBCUT SCH (15:10)
[2023-04-29] MEDS: Acetaminophen 325 MG Tab PO PRN (20:07)
[2023-04-29] MEDS: QUEtiapine 100 MG Tab PO SCH (20:08)
[2023-04-29] MEDS: LORazepam 0.5 MG Tab PO PRN (20:10)
[2023-04-30] MEDS: Clotrimazole 1% Crm 30 GM Tube TOP SCH ×2 (08:25→20:09)
[2023-04-30] MEDS: Lidocaine 4% 1 each Patch TOP PRN (08:25)
[2023-04-30] MEDS: Simethicone 80 MG Tab.Chew PO SCH ×2 (08:26→20:09)
[2023-04-30] MEDS: Metoprolol Tartrate 25 MG Tab PO SCH ×2 (08:26→20:06)
[2023-04-30] MEDS: Venlafaxine 75 MG Cap.ER PO SCH (08:26)
[2023-04-30] MEDS: Lacosamide 100 MG Tab PO SCH ×2 (08:26→20:07)
[2023-04-30] MEDS: Carboxymethylcellulose Sodium 1% Ophth Gel 15 ML Bottle EYEBOTH SCH ×3 (08:26→20:10)
[2023-04-30] MEDS: Sennosides 8.6 MG Tab PO SCH (08:27)
[2023-04-30] MEDS: Divalproex Sodium Delayed-Release 500 MG Tab.CR PO SCH ×2 (08:27→20:09)
[2023-04-30] MEDS: hydrOXYzine HCl 25 MG Tab PO SCH ×2 (08:27→20:09)
[2023-04-30] MEDS: levETIRAcetam 500 MG Tab PO SCH ×2 (08:27→20:07)
[2023-04-30] MEDS: atorvaSTATin 40 MG Tab PO SCH (08:27)
[2023-04-30] MEDS: oxyCODONE 5 MG Tab PO SCH (08:27)
[2023-04-30] MEDS: Sodium Chloride 1 GM Tab PO SCH ×2 (08:27→20:08)
[2023-04-30] MEDS: Enoxaparin 40 MG/0.4 ML Syringe SUBCUT SCH (14:03)
[2023-04-30] MEDS: Acetaminophen 325 MG Tab PO PRN (20:07)
[2023-04-30] MEDS: LORazepam 0.5 MG Tab PO PRN (20:08)
[2023-04-30] MEDS: QUEtiapine 100 MG Tab PO SCH (20:08)
[2023-05-01] MEDS: Lidocaine 4% 1 each Patch TOP PRN (08:39)
[2023-05-01] MEDS: Sodium Chloride 1 GM Tab PO SCH ×2 (08:39→20:21)
[2023-05-01] MEDS: Sennosides 8.6 MG Tab PO SCH (08:40)
[2023-05-01] MEDS: Simethicone 80 MG Tab.Chew PO SCH ×2 (08:40→20:21)
[2023-05-01] MEDS: oxyCODONE 5 MG Tab PO SCH (08:40)
[2023-05-01] MEDS: hydrOXYzine HCl 25 MG Tab PO SCH ×2 (08:40→20:22)
[2023-05-01] MEDS: atorvaSTATin 40 MG Tab PO SCH (08:40)
[2023-05-01] MEDS: Metoprolol Tartrate 25 MG Tab PO SCH ×2 (08:43→20:22)
[2023-05-01] MEDS: Lacosamide 100 MG Tab PO SCH ×2 (08:44→20:20)
[2023-05-01] MEDS: levETIRAcetam 500 MG Tab PO SCH ×2 (08:44→20:19)
[2023-05-01] MEDS: Divalproex Sodium Delayed-Release 500 MG Tab.CR PO SCH ×2 (08:44→20:19)
[2023-05-01] MEDS: Clotrimazole 1% Crm 30 GM Tube TOP SCH ×2 (08:44→20:25)
[2023-05-01] MEDS: Venlafaxine 75 MG Cap.ER PO SCH (08:44)
[2023-05-01] MEDS: Carboxymethylcellulose Sodium 1% Ophth Gel 15 ML Bottle EYEBOTH SCH ×3 (08:45→20:25)
[2023-05-01] MEDS: Enoxaparin 40 MG/0.4 ML Syringe SUBCUT SCH (15:26)
[2023-05-01] MEDS: QUEtiapine 100 MG Tab PO SCH (20:20)
[2023-05-02] MEDS: Sodium Chloride 1 GM Tab PO SCH ×2 (09:24→20:40)
[2023-05-02] MEDS: Sennosides 8.6 MG Tab PO SCH (09:24)
[2023-05-02] MEDS: Simethicone 80 MG Tab.Chew PO SCH ×2 (09:24→20:40)
[2023-05-02] MEDS: oxyCODONE 5 MG Tab PO SCH (09:25)
[2023-05-02] MEDS: atorvaSTATin 40 MG Tab PO SCH (09:25)
[2023-05-02] MEDS: Divalproex Sodium Delayed-Release 500 MG Tab.CR PO SCH ×2 (09:27→20:41)
[2023-05-02] MEDS: Metoprolol Tartrate 25 MG Tab PO SCH ×2 (09:27→20:39)
[2023-05-02] MEDS: Venlafaxine 75 MG Cap.ER PO SCH (09:28)
[2023-05-02] MEDS: levETIRAcetam 500 MG Tab PO SCH ×2 (09:28→20:40)
[2023-05-02] MEDS: Lacosamide 100 MG Tab PO SCH ×2 (09:28→20:41)
[2023-05-02] MEDS: hydrOXYzine HCl 25 MG Tab PO SCH ×2 (09:28→20:41)
[2023-05-02] MEDS: Clotrimazole 1% Crm 30 GM Tube TOP SCH ×2 (09:29→20:41)
[2023-05-02] MEDS: Carboxymethylcellulose Sodium 1% Ophth Gel 15 ML Bottle EYEBOTH SCH ×3 (09:30→20:41)
[2023-05-02] MEDS: Enoxaparin 40 MG/0.4 ML Syringe SUBCUT SCH (15:07)
[2023-05-02] MEDS: QUEtiapine 100 MG Tab PO SCH (20:40)
[2023-05-02] MEDS: Acetaminophen 325 MG Tab PO PRN (21:27)
[2023-05-03] MEDS: levETIRAcetam 500 MG Tab PO SCH ×2 (08:35→20:45)
[2023-05-03] MEDS: atorvaSTATin 40 MG Tab PO SCH (08:35)
[2023-05-03] MEDS: Simethicone 80 MG Tab.Chew PO SCH ×2 (08:36→20:45)
[2023-05-03] MEDS: Sodium Chloride 1 GM Tab PO SCH ×2 (08:37→20:46)
[2023-05-03] MEDS: Sennosides 8.6 MG Tab PO SCH (08:37)
[2023-05-03] MEDS: Divalproex Sodium Delayed-Release 500 MG Tab.CR PO SCH ×2 (08:37→20:44)
[2023-05-03] MEDS: Metoprolol Tartrate 25 MG Tab PO SCH ×2 (08:38→20:46)
[2023-05-03] MEDS: Venlafaxine 75 MG Cap.ER PO SCH (08:38)
[2023-05-03] MEDS: oxyCODONE 5 MG Tab PO SCH (08:39)
[2023-05-03] MEDS: Clotrimazole 1% Crm 30 GM Tube TOP SCH ×2 (08:40→20:47)
[2023-05-03] MEDS: Carboxymethylcellulose Sodium 1% Ophth Gel 15 ML Bottle EYEBOTH SCH ×3 (08:40→20:46)
[2023-05-03] MEDS: Enoxaparin 40 MG/0.4 ML Syringe SUBCUT SCH (15:14)
[2023-05-03] MEDS: hydrOXYzine HCl 25 MG Tab PO SCH ×2 (20:43→20:44)
[2023-05-03] MEDS: Lacosamide 100 MG Tab PO SCH ×2 (20:43→20:46)
[2023-05-03] MEDS: Acetaminophen 325 MG Tab PO PRN (20:44)
[2023-05-03] MEDS: LORazepam 0.5 MG Tab PO PRN (20:46)
[2023-05-03] MEDS: QUEtiapine 100 MG Tab PO SCH (20:46)
[2023-05-04] MEDS: Sennosides 8.6 MG Tab PO SCH (09:43)
[2023-05-04] MEDS: levETIRAcetam 500 MG Tab PO SCH ×2 (09:43→20:29)
[2023-05-04] MEDS: Simethicone 80 MG Tab.Chew PO SCH ×2 (09:43→20:28)
[2023-05-04] MEDS: Metoprolol Tartrate 25 MG Tab PO SCH ×2 (09:44→20:30)
[2023-05-04] MEDS: oxyCODONE 5 MG Tab PO SCH (09:44)
[2023-05-04] MEDS: Divalproex Sodium Delayed-Release 500 MG Tab.CR PO SCH ×2 (09:44→20:28)
[2023-05-04] MEDS: hydrOXYzine HCl 25 MG Tab PO SCH ×2 (09:44→20:29)
[2023-05-04] MEDS: Sodium Chloride 1 GM Tab PO SCH ×2 (09:44→20:29)
[2023-05-04] MEDS: Carboxymethylcellulose Sodium 1% Ophth Gel 15 ML Bottle EYEBOTH SCH ×3 (09:45→20:27)
[2023-05-04] MEDS: Lacosamide 100 MG Tab PO SCH ×2 (09:45→20:28)
[2023-05-04] MEDS: Venlafaxine 75 MG Cap.ER PO SCH (09:45)
[2023-05-04] MEDS: atorvaSTATin 40 MG Tab PO SCH (09:45)
[2023-05-04] MEDS: Clotrimazole 1% Crm 30 GM Tube TOP SCH ×2 (09:45→20:28)
[2023-05-04] MEDS: Lidocaine 4% 1 each Patch TOP PRN (09:56)
[2023-05-04] MEDS: Enoxaparin 40 MG/0.4 ML Syringe SUBCUT SCH (15:16)
[2023-05-04] MEDS: LORazepam 0.5 MG Tab PO PRN (20:29)
[2023-05-04] MEDS: Acetaminophen 325 MG Tab PO PRN (20:29)
[2023-05-04] MEDS: QUEtiapine 100 MG Tab PO SCH (20:30)
[2023-05-05] MEDS: Metoprolol Tartrate 25 MG Tab PO SCH ×2 (09:34→20:15)
[2023-05-05] MEDS: Sodium Chloride 1 GM Tab PO SCH ×2 (09:34→20:12)
[2023-05-05] MEDS: levETIRAcetam 500 MG Tab PO SCH ×2 (09:34→20:13)
[2023-05-05] MEDS: Lacosamide 100 MG Tab PO SCH ×2 (09:34→20:13)
[2023-05-05] MEDS: Simethicone 80 MG Tab.Chew PO SCH ×2 (09:35→20:13)
[2023-05-05] MEDS: atorvaSTATin 40 MG Tab PO SCH (09:35)
[2023-05-05] MEDS: Venlafaxine 75 MG Cap.ER PO SCH (09:35)
[2023-05-05] MEDS: hydrOXYzine HCl 25 MG Tab PO SCH ×2 (09:35→20:12)
[2023-05-05] MEDS: Sennosides 8.6 MG Tab PO SCH (09:36)
[2023-05-05] MEDS: oxyCODONE 5 MG Tab PO SCH (09:36)
[2023-05-05] MEDS: Carboxymethylcellulose Sodium 1% Ophth Gel 15 ML Bottle EYEBOTH SCH ×3 (09:36→20:20)
[2023-05-05] MEDS: Divalproex Sodium Delayed-Release 500 MG Tab.CR PO SCH ×2 (09:36→20:12)
[2023-05-05] MEDS: Clotrimazole 1% Crm 30 GM Tube TOP SCH ×2 (09:37→20:18)
[2023-05-05] MEDS: Enoxaparin 40 MG/0.4 ML Syringe SUBCUT SCH (16:08)
[2023-05-05] MEDS: QUEtiapine 100 MG Tab PO SCH (20:12)
[2023-05-06] MEDS: Simethicone 80 MG Tab.Chew PO SCH ×2 (08:48→20:04)
[2023-05-06] MEDS: Venlafaxine 75 MG Cap.ER PO SCH (08:48)
[2023-05-06] MEDS: Lacosamide 100 MG Tab PO SCH ×2 (08:48→20:06)
[2023-05-06] MEDS: hydrOXYzine HCl 25 MG Tab PO SCH ×2 (08:49→20:06)
[2023-05-06] MEDS: Sennosides 8.6 MG Tab PO SCH (08:49)
[2023-05-06] MEDS: oxyCODONE 5 MG Tab PO SCH (08:49)
[2023-05-06] MEDS: levETIRAcetam 500 MG Tab PO SCH ×2 (08:49→20:06)
[2023-05-06] MEDS: Metoprolol Tartrate 25 MG Tab PO SCH ×2 (08:50→20:05)
[2023-05-06] MEDS: Divalproex Sodium Delayed-Release 500 MG Tab.CR PO SCH ×2 (08:51→20:06)
[2023-05-06] MEDS: atorvaSTATin 40 MG Tab PO SCH (08:51)
[2023-05-06] MEDS: Clotrimazole 1% Crm 30 GM Tube TOP SCH ×2 (08:52→20:06)
[2023-05-06] MEDS: Carboxymethylcellulose Sodium 1% Ophth Gel 15 ML Bottle EYEBOTH SCH ×3 (08:53→20:07)
[2023-05-06] MEDS: Sodium Chloride 1 GM Tab PO SCH ×2 (16:41→20:14)
[2023-05-06] MEDS: Enoxaparin 40 MG/0.4 ML Syringe SUBCUT SCH (16:42)
[2023-05-06] MEDS: QUEtiapine 100 MG Tab PO SCH (20:06)
[2023-05-07] MEDS: Metoprolol Tartrate 25 MG Tab PO SCH ×2 (09:11→20:31)
[2023-05-07] MEDS: Simethicone 80 MG Tab.Chew PO SCH ×2 (09:11→20:33)
[2023-05-07] MEDS: oxyCODONE 5 MG Tab PO SCH (09:12)
[2023-05-07] MEDS: levETIRAcetam 500 MG Tab PO SCH ×2 (09:12→20:31)
[2023-05-07] MEDS: hydrOXYzine HCl 25 MG Tab PO SCH ×2 (09:13→20:30)
[2023-05-07] MEDS: Venlafaxine 75 MG Cap.ER PO SCH (09:13)
[2023-05-07] MEDS: Sennosides 8.6 MG Tab PO SCH (09:13)
[2023-05-07] MEDS: atorvaSTATin 40 MG Tab PO SCH (09:13)
[2023-05-07] MEDS: Divalproex Sodium Delayed-Release 500 MG Tab.CR PO SCH ×2 (09:13→20:31)
[2023-05-07] MEDS: Lacosamide 100 MG Tab PO SCH ×2 (09:14→20:34)
[2023-05-07] MEDS: Sodium Chloride 1 GM Tab PO SCH ×2 (09:14→20:34)
[2023-05-07] MEDS: Carboxymethylcellulose Sodium 1% Ophth Gel 15 ML Bottle EYEBOTH SCH ×3 (09:14→20:33)
[2023-05-07] MEDS: Clotrimazole 1% Crm 30 GM Tube TOP SCH ×2 (09:15→20:32)
[2023-05-07] MEDS: Enoxaparin 40 MG/0.4 ML Syringe SUBCUT SCH (16:28)
[2023-05-07] MEDS: QUEtiapine 100 MG Tab PO SCH (20:25)
[2023-05-08] MEDS: atorvaSTATin 40 MG Tab PO SCH (09:34)
[2023-05-08] MEDS: Lacosamide 100 MG Tab PO SCH ×2 (09:35→20:41)
[2023-05-08] MEDS: Simethicone 80 MG Tab.Chew PO SCH ×2 (09:35→20:40)
[2023-05-08] MEDS: Divalproex Sodium Delayed-Release 500 MG Tab.CR PO SCH ×2 (09:35→20:41)
[2023-05-08] MEDS: levETIRAcetam 500 MG Tab PO SCH ×2 (09:35→20:40)
[2023-05-08] MEDS: oxyCODONE 5 MG Tab PO SCH (09:36)
[2023-05-08] MEDS: Sodium Chloride 1 GM Tab PO SCH ×2 (09:36→20:42)
[2023-05-08] MEDS: Venlafaxine 75 MG Cap.ER PO SCH (09:39)
[2023-05-08] MEDS: hydrOXYzine HCl 25 MG Tab PO SCH ×2 (09:39→20:40)
[2023-05-08] MEDS: Metoprolol Tartrate 25 MG Tab PO SCH ×2 (09:39→20:42)
[2023-05-08] MEDS: Carboxymethylcellulose Sodium 1% Ophth Gel 15 ML Bottle EYEBOTH SCH ×3 (09:48→20:43)
[2023-05-08] MEDS: Sennosides 8.6 MG Tab PO SCH (09:48)
[2023-05-08] MEDS: Clotrimazole 1% Crm 30 GM Tube TOP SCH ×2 (09:49→20:43)
[2023-05-08] MEDS ORDERED: FLU (Flulaval Quad) 2023-24(6MOS UP)/PF 60 MCG/0.5 ML Syringe IM ONE (15:00)
[2023-05-08] MEDS: Enoxaparin 40 MG/0.4 ML Syringe SUBCUT SCH (15:29)
[2023-05-08] MEDS: Acetaminophen 325 MG Tab PO PRN (20:41)
[2023-05-08] MEDS: QUEtiapine 100 MG Tab PO SCH (20:42)
[2023-05-09] MEDS: Simethicone 80 MG Tab.Chew PO SCH ×2 (08:28→20:45)
[2023-05-09] MEDS: Sodium Chloride 1 GM Tab PO SCH ×2 (08:28→20:45)
[2023-05-09] MEDS: atorvaSTATin 40 MG Tab PO SCH (08:28)
[2023-05-09] MEDS: levETIRAcetam 500 MG Tab PO SCH ×2 (08:28→20:46)
[2023-05-09] MEDS: oxyCODONE 5 MG Tab PO SCH (08:29)
[2023-05-09] MEDS: Sennosides 8.6 MG Tab PO SCH (08:29)
[2023-05-09] MEDS: Divalproex Sodium Delayed-Release 500 MG Tab.CR PO SCH ×2 (08:31→20:46)
[2023-05-09] MEDS: Lacosamide 100 MG Tab PO SCH ×2 (08:31→20:45)
[2023-05-09] MEDS: Metoprolol Tartrate 25 MG Tab PO SCH ×2 (08:31→20:43)
[2023-05-09] MEDS: Venlafaxine 75 MG Cap.ER PO SCH (08:32)
[2023-05-09] MEDS: hydrOXYzine HCl 25 MG Tab PO SCH ×2 (08:32→20:45)
[2023-05-09] MEDS: Carboxymethylcellulose Sodium 1% Ophth Gel 15 ML Bottle EYEBOTH SCH ×3 (08:33→20:47)
[2023-05-09] MEDS: Clotrimazole 1% Crm 30 GM Tube TOP SCH ×2 (08:34→20:47)
[2023-05-09] MEDS: Enoxaparin 40 MG/0.4 ML Syringe SUBCUT SCH (14:39)
[2023-05-09] MEDS: Acetaminophen 325 MG Tab PO PRN (20:44)
[2023-05-09] MEDS: QUEtiapine 100 MG Tab PO SCH (20:47)
[2023-05-10] MEDS: Lidocaine 4% 1 each Patch TOP PRN (08:11)
[2023-05-10] MEDS: Metoprolol Tartrate 25 MG Tab PO SCH ×2 (08:11→20:30)
[2023-05-10] MEDS: Lacosamide 100 MG Tab PO SCH ×2 (08:11→20:32)
[2023-05-10] MEDS: atorvaSTATin 40 MG Tab PO SCH (08:12)
[2023-05-10] MEDS: Venlafaxine 75 MG Cap.ER PO SCH (08:12)
[2023-05-10] MEDS: Sennosides 8.6 MG Tab PO SCH (08:12)
[2023-05-10] MEDS: Divalproex Sodium Delayed-Release 500 MG Tab.CR PO SCH ×2 (08:12→20:33)
[2023-05-10] MEDS: Sodium Chloride 1 GM Tab PO SCH ×2 (08:12→20:31)
[2023-05-10] MEDS: levETIRAcetam 500 MG Tab PO SCH ×2 (08:13→20:33)
[2023-05-10] MEDS: hydrOXYzine HCl 25 MG Tab PO SCH ×2 (08:13→20:33)
[2023-05-10] MEDS: oxyCODONE 5 MG Tab PO SCH (08:13)
[2023-05-10] MEDS: Clotrimazole 1% Crm 30 GM Tube TOP SCH ×2 (08:14→20:34)
[2023-05-10] MEDS: Carboxymethylcellulose Sodium 1% Ophth Gel 15 ML Bottle EYEBOTH SCH ×3 (08:14→20:34)
[2023-05-10] MEDS: Simethicone 80 MG Tab.Chew PO SCH ×2 (08:17→20:32)
[2023-05-10] MEDS: Enoxaparin 40 MG/0.4 ML Syringe SUBCUT SCH (14:14)
[2023-05-10] MEDS: QUEtiapine 100 MG Tab PO SCH (20:32)
[2023-05-11] MEDS: Lidocaine 4% 1 each Patch TOP PRN (08:07)
[2023-05-11] MEDS: Venlafaxine 75 MG Cap.ER PO SCH (08:08)
[2023-05-11] MEDS: Divalproex Sodium Delayed-Release 500 MG Tab.CR PO SCH ×2 (08:08→20:30)
[2023-05-11] MEDS: Clotrimazole 1% Crm 30 GM Tube TOP SCH ×2 (08:08→20:32)
[2023-05-11] MEDS: Sodium Chloride 1 GM Tab PO SCH ×2 (08:08→20:29)
[2023-05-11] MEDS: Carboxymethylcellulose Sodium 1% Ophth Gel 15 ML Bottle EYEBOTH SCH ×3 (08:08→20:33)
[2023-05-11] MEDS: oxyCODONE 5 MG Tab PO SCH (08:09)
[2023-05-11] MEDS: Lacosamide 100 MG Tab PO SCH ×2 (08:09→20:31)
[2023-05-11] MEDS: hydrOXYzine HCl 25 MG Tab PO SCH ×2 (08:09→20:32)
[2023-05-11] MEDS: atorvaSTATin 40 MG Tab PO SCH (08:09)
[2023-05-11] MEDS: levETIRAcetam 500 MG Tab PO SCH ×2 (08:09→20:32)
[2023-05-11] MEDS: Simethicone 80 MG Tab.Chew PO SCH ×2 (08:09→20:32)
[2023-05-11] MEDS: Metoprolol Tartrate 25 MG Tab PO SCH ×2 (08:09→20:31)
[2023-05-11] MEDS: Sennosides 8.6 MG Tab PO SCH (08:10)
[2023-05-11] MEDS: Enoxaparin 40 MG/0.4 ML Syringe SUBCUT SCH (14:00)
[2023-05-11] MEDS: QUEtiapine 100 MG Tab PO SCH (20:29)
[2023-05-12] MEDS: Lidocaine 4% 1 each Patch TOP PRN (08:34)
[2023-05-12] MEDS: Sennosides 8.6 MG Tab PO SCH (08:35)
[2023-05-12] MEDS: Venlafaxine 75 MG Cap.ER PO SCH (08:35)
[2023-05-12] MEDS: Simethicone 80 MG Tab.Chew PO SCH ×2 (08:35→20:00)
[2023-05-12] MEDS: hydrOXYzine HCl 25 MG Tab PO SCH ×2 (08:35→20:03)
[2023-05-12] MEDS: Lacosamide 100 MG Tab PO SCH ×2 (08:35→20:02)
[2023-05-12] MEDS: levETIRAcetam 500 MG Tab PO SCH ×2 (08:36→20:02)
[2023-05-12] MEDS: Clotrimazole 1% Crm 30 GM Tube TOP SCH ×2 (08:36→20:03)
[2023-05-12] MEDS: oxyCODONE 5 MG Tab PO SCH (08:36)
[2023-05-12] MEDS: Metoprolol Tartrate 25 MG Tab PO SCH ×2 (08:36→20:02)
[2023-05-12] MEDS: Divalproex Sodium Delayed-Release 500 MG Tab.CR PO SCH ×2 (08:37→20:01)
[2023-05-12] MEDS: Carboxymethylcellulose Sodium 1% Ophth Gel 15 ML Bottle EYEBOTH SCH ×3 (08:37→20:04)
[2023-05-12] MEDS: atorvaSTATin 40 MG Tab PO SCH (08:37)
[2023-05-12] MEDS: Sodium Chloride 1 GM Tab PO SCH ×2 (08:37→20:02)
[2023-05-12] MEDS: Enoxaparin 40 MG/0.4 ML Syringe SUBCUT SCH (15:07)
[2023-05-12] MEDS: QUEtiapine 100 MG Tab PO SCH (20:01)
[2023-05-13] MEDS: Divalproex Sodium Delayed-Release 500 MG Tab.CR PO SCH ×2 (08:13→20:42)
[2023-05-13] MEDS: oxyCODONE 5 MG Tab PO SCH (08:14)
[2023-05-13] MEDS: Simethicone 80 MG Tab.Chew PO SCH ×2 (08:14→20:42)
[2023-05-13] MEDS: Venlafaxine 75 MG Cap.ER PO SCH (08:14)
[2023-05-13] MEDS: Sodium Chloride 1 GM Tab PO SCH ×2 (08:14→20:42)
[2023-05-13] MEDS: Sennosides 8.6 MG Tab PO SCH (08:15)
[2023-05-13] MEDS: atorvaSTATin 40 MG Tab PO SCH (08:15)
[2023-05-13] MEDS: Metoprolol Tartrate 25 MG Tab PO SCH ×2 (08:15→20:41)
[2023-05-13] MEDS: hydrOXYzine HCl 25 MG Tab PO SCH ×2 (08:15→20:43)
[2023-05-13] MEDS: levETIRAcetam 500 MG Tab PO SCH ×2 (08:16→20:43)
[2023-05-13] MEDS: Lacosamide 100 MG Tab PO SCH ×2 (08:16→20:43)
[2023-05-13] MEDS: Carboxymethylcellulose Sodium 1% Ophth Gel 15 ML Bottle EYEBOTH SCH ×3 (08:16→20:44)
[2023-05-13] MEDS: Clotrimazole 1% Crm 30 GM Tube TOP SCH ×2 (08:17→20:43)
[2023-05-13] MEDS: Enoxaparin 40 MG/0.4 ML Syringe SUBCUT SCH (15:01)
[2023-05-13] MEDS: QUEtiapine 100 MG Tab PO SCH (20:41)
[2023-05-14] MEDS: Simethicone 80 MG Tab.Chew PO SCH ×2 (08:12→20:44)
[2023-05-14] MEDS: Divalproex Sodium Delayed-Release 500 MG Tab.CR PO SCH ×2 (08:12→20:44)
[2023-05-14] MEDS: Carboxymethylcellulose Sodium 1% Ophth Gel 15 ML Bottle EYEBOTH SCH ×3 (08:12→20:47)
[2023-05-14] MEDS: Venlafaxine 75 MG Cap.ER PO SCH (08:12)
[2023-05-14] MEDS: Lacosamide 100 MG Tab PO SCH ×2 (08:12→20:45)
[2023-05-14] MEDS: Clotrimazole 1% Crm 30 GM Tube TOP SCH ×2 (08:12→20:47)
[2023-05-14] MEDS: Lidocaine 4% 1 each Patch TOP PRN (08:12)
[2023-05-14] MEDS: Sennosides 8.6 MG Tab PO SCH (08:12)
[2023-05-14] MEDS: oxyCODONE 5 MG Tab PO SCH (08:12)
[2023-05-14] MEDS: Sodium Chloride 1 GM Tab PO SCH ×2 (08:13→20:45)
[2023-05-14] MEDS: atorvaSTATin 40 MG Tab PO SCH (08:13)
[2023-05-14] MEDS: levETIRAcetam 500 MG Tab PO SCH ×2 (08:13→20:44)
[2023-05-14] MEDS: hydrOXYzine HCl 25 MG Tab PO SCH ×2 (08:13→20:46)
[2023-05-14] MEDS: Metoprolol Tartrate 25 MG Tab PO SCH ×2 (08:13→20:45)
[2023-05-14] MEDS: Enoxaparin 40 MG/0.4 ML Syringe SUBCUT SCH (14:52)
[2023-05-14] MEDS: QUEtiapine 100 MG Tab PO SCH (20:46)
[2023-05-15] MEDS: levETIRAcetam 500 MG Tab PO SCH ×2 (08:27→20:50)
[2023-05-15] MEDS: Lacosamide 100 MG Tab PO SCH ×2 (08:27→20:52)
[2023-05-15] MEDS: Divalproex Sodium Delayed-Release 500 MG Tab.CR PO SCH ×2 (08:28→20:51)
[2023-05-15] MEDS: Venlafaxine 75 MG Cap.ER PO SCH (08:28)
[2023-05-15] MEDS: Simethicone 80 MG Tab.Chew PO SCH ×2 (08:28→20:50)
[2023-05-15] MEDS: Sodium Chloride 1 GM Tab PO SCH ×2 (08:29→20:52)
[2023-05-15] MEDS: Sennosides 8.6 MG Tab PO SCH (08:29)
[2023-05-15] MEDS: atorvaSTATin 40 MG Tab PO SCH (08:29)
[2023-05-15] MEDS: hydrOXYzine HCl 25 MG Tab PO SCH ×2 (08:29→20:53)
[2023-05-15] MEDS: oxyCODONE 5 MG Tab PO SCH (08:29)
[2023-05-15] MEDS: Clotrimazole 1% Crm 30 GM Tube TOP SCH ×2 (08:30→20:55)
[2023-05-15] MEDS: Carboxymethylcellulose Sodium 1% Ophth Gel 15 ML Bottle EYEBOTH SCH ×3 (08:30→20:55)
[2023-05-15] MEDS: Metoprolol Tartrate 25 MG Tab PO SCH ×2 (08:36→20:52)
[2023-05-15] MEDS: Enoxaparin 40 MG/0.4 ML Syringe SUBCUT SCH (14:54)
[2023-05-15] MEDS: QUEtiapine 100 MG Tab PO SCH (20:51)
[2023-05-16] MEDS: Lidocaine 4% 1 each Patch TOP PRN (08:11)
[2023-05-16] MEDS: Sodium Chloride 1 GM Tab PO SCH ×2 (08:11→20:24)
[2023-05-16] MEDS: Clotrimazole 1% Crm 30 GM Tube TOP SCH ×2 (08:11→20:25)
[2023-05-16] MEDS: Carboxymethylcellulose Sodium 1% Ophth Gel 15 ML Bottle EYEBOTH SCH ×3 (08:11→20:25)
[2023-05-16] MEDS: levETIRAcetam 500 MG Tab PO SCH ×2 (08:12→20:24)
[2023-05-16] MEDS: atorvaSTATin 40 MG Tab PO SCH (08:12)
[2023-05-16] MEDS: oxyCODONE 5 MG Tab PO SCH (08:12)
[2023-05-16] MEDS: Lacosamide 100 MG Tab PO SCH ×2 (08:12→20:24)
[2023-05-16] MEDS: Divalproex Sodium Delayed-Release 500 MG Tab.CR PO SCH ×2 (08:12→20:23)
[2023-05-16] MEDS: hydrOXYzine HCl 25 MG Tab PO SCH ×2 (08:13→20:24)
[2023-05-16] MEDS: Sennosides 8.6 MG Tab PO SCH (08:13)
[2023-05-16] MEDS: Metoprolol Tartrate 25 MG Tab PO SCH ×2 (08:13→20:24)
[2023-05-16] MEDS: Simethicone 80 MG Tab.Chew PO SCH ×2 (08:13→20:23)
[2023-05-16] MEDS: Venlafaxine 75 MG Cap.ER PO SCH (08:13)
[2023-05-16] MEDS: Enoxaparin 40 MG/0.4 ML Syringe SUBCUT SCH (15:53)
[2023-05-16] MEDS: QUEtiapine 100 MG Tab PO SCH (20:23)
[2023-05-17] MEDS: Clotrimazole 1% Crm 30 GM Tube TOP SCH ×2 (08:32→20:08)
[2023-05-17] MEDS: Simethicone 80 MG Tab.Chew PO SCH ×2 (08:32→20:04)
[2023-05-17] MEDS: Carboxymethylcellulose Sodium 1% Ophth Gel 15 ML Bottle EYEBOTH SCH ×3 (08:32→20:09)
[2023-05-17] MEDS: Divalproex Sodium Delayed-Release 500 MG Tab.CR PO SCH ×2 (08:33→20:07)
[2023-05-17] MEDS: Acetaminophen 325 MG Tab PO PRN ×2 (08:33→20:05)
[2023-05-17] MEDS: levETIRAcetam 500 MG Tab PO SCH ×2 (08:33→20:07)
[2023-05-17] MEDS: Venlafaxine 75 MG Cap.ER PO SCH (08:33)
[2023-05-17] MEDS: Sodium Chloride 1 GM Tab PO SCH ×2 (08:34→20:04)
[2023-05-17] MEDS: Lacosamide 100 MG Tab PO SCH ×2 (08:34→20:06)
[2023-05-17] MEDS: oxyCODONE 5 MG Tab PO SCH (08:34)
[2023-05-17] MEDS: hydrOXYzine HCl 25 MG Tab PO SCH ×2 (08:34→20:06)
[2023-05-17] MEDS: Sennosides 8.6 MG Tab PO SCH (08:34)
[2023-05-17] MEDS: Metoprolol Tartrate 25 MG Tab PO SCH ×2 (08:35→20:07)
[2023-05-17] MEDS: atorvaSTATin 40 MG Tab PO SCH (08:35)
[2023-05-17] MEDS: Enoxaparin 40 MG/0.4 ML Syringe SUBCUT SCH (15:25)
[2023-05-17] MEDS: QUEtiapine 100 MG Tab PO SCH (20:06)
[2023-05-18] MEDS: Sodium Chloride 1 GM Tab PO SCH ×2 (07:59→20:48)
[2023-05-18] MEDS: atorvaSTATin 40 MG Tab PO SCH (08:00)
[2023-05-18] MEDS: Venlafaxine 75 MG Cap.ER PO SCH (08:00)
[2023-05-18] MEDS: levETIRAcetam 500 MG Tab PO SCH ×2 (08:00→20:46)
[2023-05-18] MEDS: hydrOXYzine HCl 25 MG Tab PO SCH ×2 (08:00→20:49)
[2023-05-18] MEDS: Simethicone 80 MG Tab.Chew PO SCH ×2 (08:01→20:46)
[2023-05-18] MEDS: oxyCODONE 5 MG Tab PO SCH (08:01)
[2023-05-18] MEDS: Divalproex Sodium Delayed-Release 500 MG Tab.CR PO SCH ×2 (08:01→20:47)
[2023-05-18] MEDS: Metoprolol Tartrate 25 MG Tab PO SCH ×2 (08:01→20:45)
[2023-05-18] MEDS: Sennosides 8.6 MG Tab PO SCH (08:01)
[2023-05-18] MEDS: Lacosamide 100 MG Tab PO SCH ×2 (08:02→20:49)
[2023-05-18] MEDS: Carboxymethylcellulose Sodium 1% Ophth Gel 15 ML Bottle EYEBOTH SCH ×3 (08:03→20:51)
[2023-05-18] MEDS: Lidocaine 4% 1 each Patch TOP PRN (08:03)
[2023-05-18] MEDS: Clotrimazole 1% Crm 30 GM Tube TOP SCH ×2 (08:03→20:49)
[2023-05-18] MEDS: Enoxaparin 40 MG/0.4 ML Syringe SUBCUT SCH (15:47)
[2023-05-18] MEDS: QUEtiapine 100 MG Tab PO SCH (20:49)
[2023-05-19] MEDS: Simethicone 80 MG Tab.Chew PO SCH ×2 (08:15→20:13)
[2023-05-19] MEDS: Sennosides 8.6 MG Tab PO SCH (08:19)
[2023-05-19] MEDS: Divalproex Sodium Delayed-Release 500 MG Tab.CR PO SCH ×2 (08:20→20:13)
[2023-05-19] MEDS: atorvaSTATin 40 MG Tab PO SCH (08:20)
[2023-05-19] MEDS: Metoprolol Tartrate 25 MG Tab PO SCH ×2 (08:21→20:18)
[2023-05-19] MEDS: hydrOXYzine HCl 25 MG Tab PO SCH ×2 (08:21→20:13)
[2023-05-19] MEDS: Lacosamide 100 MG Tab PO SCH ×2 (08:21→20:13)
[2023-05-19] MEDS: oxyCODONE 5 MG Tab PO SCH (08:21)
[2023-05-19] MEDS: Sodium Chloride 1 GM Tab PO SCH ×2 (08:23→20:12)
[2023-05-19] MEDS: levETIRAcetam 500 MG Tab PO SCH ×2 (08:23→20:13)
[2023-05-19] MEDS: Venlafaxine 75 MG Cap.ER PO SCH (08:23)
[2023-05-19] MEDS: Clotrimazole 1% Crm 30 GM Tube TOP SCH ×2 (08:25→20:14)
[2023-05-19] MEDS: Carboxymethylcellulose Sodium 1% Ophth Gel 15 ML Bottle EYEBOTH SCH ×3 (08:25→20:14)
[2023-05-19] MEDS: Enoxaparin 40 MG/0.4 ML Syringe SUBCUT SCH (14:01)
[2023-05-19] MEDS: QUEtiapine 100 MG Tab PO SCH (20:12)
[2023-05-20 05:48] LABS: BASOPHILS PERCENT AUTO 0.2 % (0.0-1.0); EOSINOPHILS ABSOLUTE AUTO 0.1 K/mm3 (0.0-0.4); EOSINOPHILS PERCENT AUTO 0.8 % (0.0-6.0); HEMATOCRIT 48.6 % (42.0-52.0); HEMOGLOBIN 16.1 gm/dl (14.0-18.0); IMMATURE GRAN ABSOLUTE AUTO 0.05 K/mm3 (0.00-0.05); IMMATURE GRAN PERCENT AUTO 0.5 % (0.0-0.4); LYMPHOCYTES ABSOLUTE AUTO 3.7 K/mm3 (1.0-4.8); MEAN CORPUSCULAR HEMOGLOBIN 29.3 pg (28.0-32.0); MEAN CORPUSCULAR HGB CONC 33.1 g/dl (32.0-36.0); MEAN CORPUSCULAR VOLUME 88.4 fl (83.0-99.0); MEAN PLATELET VOLUME 11.4 fl (9.4-12.4); MONOCYTES ABSOLUTE AUTO 1.4 K/mm3 (0.0-0.8); MONOCYTES PERCENT AUTO 14.5 % (0.0-8.0); NEUTROPHILS ABSOLUTE AUTO 4.6 K/mm3 (1.8-7.7); PLATELET COUNT,PLT 125 K/mm3 (150-400); WHITE BLOOD CELL COUNT,WBC 9.87 K/mm3 (3.9-11.3)
[2023-05-20 06:03] LABS: A/G RATIO 0.6 (1-2); ALBUMIN 2.7 g/dl (3.4-5.0); ANION GAP 11.5 (5-15); BILIRUBIN TOTAL 0.4 mg/dL (0.2-1.0); BUN/CREATININE RATIO 22.5 (14-18); C-REACTIVE PROTEIN 6.3 mg/dL (<1.0); CALCIUM 8.6 mg/dL (8.5-10.1); CREATININE 0.8 mg/dL (0.7-1.3); EST CRCL DRUG DOSING (CG) 107.27 mL/min; MAGNESIUM 2.1 mg/dL (1.8-2.4); PROTEIN TOTAL,TP 6.9 g/dl (6.4-8.2)
[2023-05-20 06:31] LABS: SLIDE REVIEW NORMAL SMEAR
[2023-05-20 06:50] LABS: POTASSIUM,K 4.5 mEq/L (3.5-5.1)
[2023-05-20] MEDS: Metoprolol Tartrate 25 MG Tab PO SCH ×2 (08:12→20:15)
[2023-05-20] MEDS: levETIRAcetam 500 MG Tab PO SCH ×2 (08:12→20:14)
[2023-05-20] MEDS: Lidocaine 4% 1 each Patch TOP PRN (08:12)
[2023-05-20] MEDS: Divalproex Sodium Delayed-Release 500 MG Tab.CR PO SCH ×2 (08:12→20:14)
[2023-05-20] MEDS: oxyCODONE 5 MG Tab PO SCH (08:13)
[2023-05-20] MEDS: Venlafaxine 75 MG Cap.ER PO SCH (08:13)
[2023-05-20] MEDS: hydrOXYzine HCl 25 MG Tab PO SCH ×2 (08:13→20:15)
[2023-05-20] MEDS: Simethicone 80 MG Tab.Chew PO SCH ×2 (08:13→20:16)
[2023-05-20] MEDS: Sodium Chloride 1 GM Tab PO SCH ×2 (08:13→20:15)
[2023-05-20] MEDS: atorvaSTATin 40 MG Tab PO SCH (08:13)
[2023-05-20] MEDS: Clotrimazole 1% Crm 30 GM Tube TOP SCH ×2 (08:14→20:17)
[2023-05-20] MEDS: Carboxymethylcellulose Sodium 1% Ophth Gel 15 ML Bottle EYEBOTH SCH ×3 (08:14→20:17)
[2023-05-20] MEDS: Sennosides 8.6 MG Tab PO SCH (08:14)
[2023-05-20] MEDS: Lacosamide 100 MG Tab PO SCH ×2 (08:14→20:15)
[2023-05-20 11:32] LABS: CORONAVIRUS COVID-19 NAA NEGATIVE (NEGATIVE); INFLUENZA A NAA NEGATIVE (NEGATIVE); RESPIRATORY SYNCYTIAL VIR NAA NEGATIVE (NEGATIVE)
[2023-05-20] MEDS: Enoxaparin 40 MG/0.4 ML Syringe SUBCUT SCH (15:01)
[2023-05-20] MEDS: Carboxymethylcellulose Sodium 1% Ophth Gel 15 ML Bottle EYEBOTH PRN (15:03)
[2023-05-20] MEDS: QUEtiapine 100 MG Tab PO SCH (20:16)
[2023-05-20] MEDS: Acetaminophen 325 MG Tab PO PRN (20:17)
[2023-05-21] MEDS: levETIRAcetam 500 MG Tab PO SCH ×2 (08:31→20:17)
[2023-05-21] MEDS: Lidocaine 4% 1 each Patch TOP PRN (08:33)
[2023-05-21] MEDS: oxyCODONE 5 MG Tab PO SCH (08:33)
[2023-05-21] MEDS: Clotrimazole 1% Crm 30 GM Tube TOP SCH ×2 (08:35→20:15)
[2023-05-21] MEDS: Carboxymethylcellulose Sodium 1% Ophth Gel 15 ML Bottle EYEBOTH SCH ×3 (08:35→20:15)
[2023-05-21] MEDS: hydrOXYzine HCl 25 MG Tab PO SCH ×2 (08:35→20:17)
[2023-05-21] MEDS: Sodium Chloride 1 GM Tab PO SCH ×2 (08:35→20:16)
[2023-05-21] MEDS: Sennosides 8.6 MG Tab PO SCH (08:36)
[2023-05-21] MEDS: atorvaSTATin 40 MG Tab PO SCH (08:36)
[2023-05-21] MEDS: Venlafaxine 75 MG Cap.ER PO SCH (08:36)
[2023-05-21] MEDS: Metoprolol Tartrate 25 MG Tab PO SCH ×2 (08:37→20:18)
[2023-05-21] MEDS: Divalproex Sodium Delayed-Release 500 MG Tab.CR PO SCH ×2 (08:37→20:17)
[2023-05-21] MEDS: Lacosamide 100 MG Tab PO SCH ×2 (08:38→20:18)
[2023-05-21] MEDS: Simethicone 80 MG Tab.Chew PO SCH ×2 (08:38→20:18)
[2023-05-21 10:22] LABS: APPEARANCE,URINE SLT CLOUDY (Clear); BILIRUBIN,URINE NEGATIVE (Negative); COLOR,URINE YELLOW (Yellow); GLUCOSE,URINE TRACE (Negative); KETONES,URINE 1+ (Negative); LEUKOCYTE ESTERASE,URINE NEGATIVE (Negative); NITRITE,URINE NEGATIVE (Negative); OCCULT BLOOD,URINE 3+ (Negative); PROTEIN,URINE 3+ (Negative)
[2023-05-21 11:02] LABS: BACTERIA,URINE FEW /hpf (FEW); EPITHELIAL CELLS,URINE 0-5 /hpf (0-5); MUCUS,URINE FEW /hpf (FEW); RBC,URINE >100 /hpf (0-5)
[2023-05-21] MEDS: Enoxaparin 40 MG/0.4 ML Syringe SUBCUT SCH (15:37)
[2023-05-21] MEDS: QUEtiapine 100 MG Tab PO SCH (20:16)
[2023-05-22 06:27] LABS: BASOPHILS PERCENT AUTO 0.2 % (0.0-1.0); EOSINOPHILS ABSOLUTE AUTO 0.1 K/mm3 (0.0-0.4); HEMATOCRIT 51.8 % (42.0-52.0); IMMATURE GRAN ABSOLUTE AUTO 0.03 K/mm3 (0.00-0.05); IMMATURE GRAN PERCENT AUTO 0.6 % (0.0-0.4); LYMPHOCYTES ABSOLUTE AUTO 2.5 K/mm3 (1.0-4.8); MEAN CORPUSCULAR HGB CONC 32.8 g/dl (32.0-36.0); MEAN CORPUSCULAR VOLUME 88.4 fl (83.0-99.0); MEAN PLATELET VOLUME 9.7 fl (9.4-12.4); MONOCYTES ABSOLUTE AUTO 0.6 K/mm3 (0.0-0.8); MONOCYTES PERCENT AUTO 11.6 % (0.0-8.0); NEUTROPHILS ABSOLUTE AUTO 1.8 K/mm3 (1.8-7.7); NEUTROPHILS PERCENT AUTO 35.6 % (41.0-71.0); PLATELET COUNT,PLT 149 K/mm3 (150-400); RED BLOOD CELL COUNT 5.86 M/mm3 (4.52-5.90)
[2023-05-22 06:45] LABS: ANION GAP 11.9 (5-15); C-REACTIVE PROTEIN 2.5 mg/dL (<1.0); CREATININE 0.7 mg/dL (0.7-1.3); EST CRCL DRUG DOSING (CG) 122.59 mL/min
[2023-05-22 06:55] LABS: POTASSIUM,K 4.9 mEq/L (3.5-5.1)
[2023-05-22] MEDS: Lidocaine 4% 1 each Patch TOP PRN (09:35)
[2023-05-22] MEDS: Simethicone 80 MG Tab.Chew PO SCH ×2 (09:37→20:18)
[2023-05-22] MEDS: Venlafaxine 75 MG Cap.ER PO SCH (09:38)
[2023-05-22] MEDS: oxyCODONE 5 MG Tab PO SCH (09:38)
[2023-05-22] MEDS: Divalproex Sodium Delayed-Release 500 MG Tab.CR PO SCH ×2 (09:38→20:18)
[2023-05-22] MEDS: Lacosamide 100 MG Tab PO SCH ×2 (09:38→20:17)
[2023-05-22] MEDS: levETIRAcetam 500 MG Tab PO SCH ×2 (09:39→20:17)
[2023-05-22] MEDS: Sennosides 8.6 MG Tab PO SCH (09:39)
[2023-05-22] MEDS: Metoprolol Tartrate 25 MG Tab PO SCH ×2 (09:39→20:17)
[2023-05-22] MEDS: Clotrimazole 1% Crm 30 GM Tube TOP SCH ×2 (09:40→20:18)
[2023-05-22] MEDS: atorvaSTATin 40 MG Tab PO SCH (09:40)
[2023-05-22] MEDS: hydrOXYzine HCl 25 MG Tab PO SCH ×2 (09:40→20:17)
[2023-05-22] MEDS: Sodium Chloride 1 GM Tab PO SCH ×2 (09:40→20:17)
[2023-05-22] MEDS: Carboxymethylcellulose Sodium 1% Ophth Gel 15 ML Bottle EYEBOTH SCH ×3 (09:41→20:18)
[2023-05-22] MEDS: Carboxymethylcellulose Sodium 1% Ophth Gel 15 ML Bottle EYEBOTH PRN (17:55)
[2023-05-22] MEDS: Enoxaparin 40 MG/0.4 ML Syringe SUBCUT SCH (17:55)
[2023-05-22] MEDS: QUEtiapine 100 MG Tab PO SCH (20:17)
[2023-05-23] MEDS: levETIRAcetam 500 MG Tab PO SCH ×2 (08:05→21:51)
[2023-05-23] MEDS: Metoprolol Tartrate 25 MG Tab PO SCH ×2 (08:06→21:50)
[2023-05-23] MEDS: Sodium Chloride 1 GM Tab PO SCH ×2 (08:06→21:48)
[2023-05-23] MEDS: Simethicone 80 MG Tab.Chew PO SCH ×2 (08:06→21:51)
[2023-05-23] MEDS: atorvaSTATin 40 MG Tab PO SCH (08:07)
[2023-05-23] MEDS: Divalproex Sodium Delayed-Release 500 MG Tab.CR PO SCH ×2 (08:07→21:50)
[2023-05-23] MEDS: oxyCODONE 5 MG Tab PO SCH (08:08)
[2023-05-23] MEDS: Sennosides 8.6 MG Tab PO SCH (08:08)
[2023-05-23] MEDS: Lacosamide 100 MG Tab PO SCH ×2 (08:08→21:48)
[2023-05-23] MEDS: Venlafaxine 75 MG Cap.ER PO SCH (08:08)
[2023-05-23] MEDS: hydrOXYzine HCl 25 MG Tab PO SCH ×2 (08:08→21:48)
[2023-05-23] MEDS: Clotrimazole 1% Crm 30 GM Tube TOP SCH ×2 (08:09→21:51)
[2023-05-23] MEDS: Carboxymethylcellulose Sodium 1% Ophth Gel 15 ML Bottle EYEBOTH SCH ×3 (08:10→21:51)
[2023-05-23] MEDS: Enoxaparin 40 MG/0.4 ML Syringe SUBCUT SCH (15:43)
[2023-05-23] MEDS: QUEtiapine 100 MG Tab PO SCH (21:48)
[2023-05-23] MEDS: Acetaminophen 325 MG Tab PO PRN (21:49)
[2023-05-24] MEDS: Metoprolol Tartrate 25 MG Tab PO SCH ×2 (08:27→21:19)
[2023-05-24] MEDS: atorvaSTATin 40 MG Tab PO SCH (08:27)
[2023-05-24] MEDS: Simethicone 80 MG Tab.Chew PO SCH ×2 (08:27→21:17)
[2023-05-24] MEDS: Sodium Chloride 1 GM Tab PO SCH ×2 (08:29→21:18)
[2023-05-24] MEDS: Venlafaxine 75 MG Cap.ER PO SCH (08:29)
[2023-05-24] MEDS: Divalproex Sodium Delayed-Release 500 MG Tab.CR PO SCH ×2 (08:30→21:19)
[2023-05-24] MEDS: oxyCODONE 5 MG Tab PO SCH (08:30)
[2023-05-24] MEDS: levETIRAcetam 500 MG Tab PO SCH ×2 (08:30→21:20)
[2023-05-24] MEDS: Sennosides 8.6 MG Tab PO SCH (08:30)
[2023-05-24] MEDS: Lacosamide 100 MG Tab PO SCH ×2 (08:30→21:20)
[2023-05-24] MEDS: Carboxymethylcellulose Sodium 1% Ophth Gel 15 ML Bottle EYEBOTH SCH ×3 (08:31→21:21)
[2023-05-24] MEDS: Clotrimazole 1% Crm 30 GM Tube TOP SCH ×2 (08:31→21:21)
[2023-05-24] MEDS: hydrOXYzine HCl 25 MG Tab PO SCH ×2 (08:31→21:20)
[2023-05-24] MEDS: Enoxaparin 40 MG/0.4 ML Syringe SUBCUT SCH (15:11)
[2023-05-24] MEDS: QUEtiapine 100 MG Tab PO SCH (21:17)
[2023-05-25] MEDS: Simethicone 80 MG Tab.Chew PO SCH ×2 (08:45→21:04)
[2023-05-25] MEDS: levETIRAcetam 500 MG Tab PO SCH ×2 (08:46→21:05)
[2023-05-25] MEDS: hydrOXYzine HCl 25 MG Tab PO SCH ×2 (08:46→21:04)
[2023-05-25] MEDS: Divalproex Sodium Delayed-Release 500 MG Tab.CR PO SCH ×2 (08:46→21:04)
[2023-05-25] MEDS: Venlafaxine 75 MG Cap.ER PO SCH (08:47)
[2023-05-25] MEDS: oxyCODONE 5 MG Tab PO SCH (08:47)
[2023-05-25] MEDS: atorvaSTATin 40 MG Tab PO SCH (08:47)
[2023-05-25] MEDS: Sennosides 8.6 MG Tab PO SCH (08:47)
[2023-05-25] MEDS: Sodium Chloride 1 GM Tab PO SCH ×2 (08:48→21:03)
[2023-05-25] MEDS: Metoprolol Tartrate 25 MG Tab PO SCH ×2 (08:48→21:03)
[2023-05-25] MEDS: Lacosamide 100 MG Tab PO SCH ×2 (08:48→21:03)
[2023-05-25] MEDS: Clotrimazole 1% Crm 30 GM Tube TOP SCH ×2 (08:49→21:07)
[2023-05-25] MEDS: Carboxymethylcellulose Sodium 1% Ophth Gel 15 ML Bottle EYEBOTH SCH ×3 (08:49→21:07)
[2023-05-25] MEDS: Enoxaparin 40 MG/0.4 ML Syringe SUBCUT SCH (15:29)
[2023-05-25] MEDS: QUEtiapine 100 MG Tab PO SCH (21:04)
[2023-05-25] MEDS: Acetaminophen 325 MG Tab PO PRN (21:05)
[2023-05-25] MEDS: Albuterol/Ipratropium 3.0-0.5 MG/3 ML Neb Soln NEB PRN (21:17)
[2023-05-26] MEDS: Sennosides 8.6 MG Tab PO SCH (09:27)
[2023-05-26] MEDS: atorvaSTATin 40 MG Tab PO SCH (09:27)
[2023-05-26] MEDS: Venlafaxine 75 MG Cap.ER PO SCH (09:27)
[2023-05-26] MEDS: hydrOXYzine HCl 25 MG Tab PO SCH ×2 (09:27→20:28)
[2023-05-26] MEDS: Divalproex Sodium Delayed-Release 500 MG Tab.CR PO SCH ×2 (09:27→20:28)
[2023-05-26] MEDS: Lacosamide 100 MG Tab PO SCH ×2 (09:27→20:28)
[2023-05-26] MEDS: Simethicone 80 MG Tab.Chew PO SCH ×2 (09:27→20:31)
[2023-05-26] MEDS: Sodium Chloride 1 GM Tab PO SCH ×2 (09:28→20:28)
[2023-05-26] MEDS: Metoprolol Tartrate 25 MG Tab PO SCH ×2 (09:28→20:27)
[2023-05-26] MEDS: oxyCODONE 5 MG Tab PO SCH (09:29)
[2023-05-26] MEDS: Lidocaine 4% 1 each Patch TOP PRN (09:30)
[2023-05-26] MEDS: levETIRAcetam 500 MG Tab PO SCH ×2 (09:30→20:29)
[2023-05-26] MEDS: Carboxymethylcellulose Sodium 1% Ophth Gel 15 ML Bottle EYEBOTH SCH ×3 (09:31→20:34)
[2023-05-26] MEDS: Clotrimazole 1% Crm 30 GM Tube TOP SCH ×2 (09:34→20:35)
[2023-05-26] MEDS: Enoxaparin 40 MG/0.4 ML Syringe SUBCUT SCH (17:01)
[2023-05-26] MEDS: QUEtiapine 100 MG Tab PO SCH (20:30)
[2023-05-27] MEDS: levETIRAcetam 500 MG Tab PO SCH ×2 (08:08→20:16)
[2023-05-27] MEDS: Venlafaxine 75 MG Cap.ER PO SCH (08:08)
[2023-05-27] MEDS: Lacosamide 100 MG Tab PO SCH ×2 (08:08→20:20)
[2023-05-27] MEDS: Metoprolol Tartrate 25 MG Tab PO SCH ×2 (08:08→20:19)
[2023-05-27] MEDS: Sennosides 8.6 MG Tab PO SCH (08:09)
[2023-05-27] MEDS: atorvaSTATin 40 MG Tab PO SCH (08:09)
[2023-05-27] MEDS: Sodium Chloride 1 GM Tab PO SCH ×2 (08:09→20:20)
[2023-05-27] MEDS: Divalproex Sodium Delayed-Release 500 MG Tab.CR PO SCH ×2 (08:09→20:17)
[2023-05-27] MEDS: hydrOXYzine HCl 25 MG Tab PO SCH ×2 (08:09→20:19)
[2023-05-27] MEDS: oxyCODONE 5 MG Tab PO SCH (08:09)
[2023-05-27] MEDS: Simethicone 80 MG Tab.Chew PO SCH ×2 (08:09→20:15)
[2023-05-27] MEDS: Carboxymethylcellulose Sodium 1% Ophth Gel 15 ML Bottle EYEBOTH SCH ×3 (08:11→20:23)
[2023-05-27] MEDS: Clotrimazole 1% Crm 30 GM Tube TOP SCH ×2 (08:11→20:24)
[2023-05-27] MEDS: Enoxaparin 40 MG/0.4 ML Syringe SUBCUT SCH (14:49)
[2023-05-27] MEDS: QUEtiapine 100 MG Tab PO SCH (20:17)
[2023-05-28] MEDS: Clotrimazole 1% Crm 30 GM Tube TOP SCH ×2 (08:01→20:21)
[2023-05-28] MEDS: Carboxymethylcellulose Sodium 1% Ophth Gel 15 ML Bottle EYEBOTH SCH ×3 (08:01→20:20)
[2023-05-28] MEDS: Lidocaine 4% 1 each Patch TOP PRN (08:02)
[2023-05-28] MEDS: Sennosides 8.6 MG Tab PO SCH (08:02)
[2023-05-28] MEDS: Simethicone 80 MG Tab.Chew PO SCH ×2 (08:02→20:14)
[2023-05-28] MEDS: atorvaSTATin 40 MG Tab PO SCH (08:02)
[2023-05-28] MEDS: Divalproex Sodium Delayed-Release 500 MG Tab.CR PO SCH ×2 (08:03→20:17)
[2023-05-28] MEDS: Venlafaxine 75 MG Cap.ER PO SCH (08:03)
[2023-05-28] MEDS: oxyCODONE 5 MG Tab PO SCH (08:03)
[2023-05-28] MEDS: hydrOXYzine HCl 25 MG Tab PO SCH ×2 (08:03→20:17)
[2023-05-28] MEDS: Sodium Chloride 1 GM Tab PO SCH ×2 (08:03→20:17)
[2023-05-28] MEDS: Lacosamide 100 MG Tab PO SCH ×2 (08:03→20:18)
[2023-05-28] MEDS: levETIRAcetam 500 MG Tab PO SCH ×2 (08:04→20:16)
[2023-05-28] MEDS: Acetaminophen 325 MG Tab PO PRN (08:04)
[2023-05-28] MEDS: Metoprolol Tartrate 25 MG Tab PO SCH ×2 (08:04→20:17)
[2023-05-28] MEDS: Enoxaparin 40 MG/0.4 ML Syringe SUBCUT SCH (15:31)
[2023-05-28] MEDS: QUEtiapine 100 MG Tab PO SCH (20:18)
[2023-05-29] MEDS: Venlafaxine 75 MG Cap.ER PO SCH (09:01)
[2023-05-29] MEDS: Sennosides 8.6 MG Tab PO SCH (09:01)
[2023-05-29] MEDS: levETIRAcetam 500 MG Tab PO SCH ×2 (09:04→20:08)
[2023-05-29] MEDS: Divalproex Sodium Delayed-Release 500 MG Tab.CR PO SCH ×2 (09:05→20:08)
[2023-05-29] MEDS: Lacosamide 100 MG Tab PO SCH ×2 (09:05→20:08)
[2023-05-29] MEDS: atorvaSTATin 40 MG Tab PO SCH (09:05)
[2023-05-29] MEDS: Simethicone 80 MG Tab.Chew PO SCH ×2 (09:05→20:07)
[2023-05-29] MEDS: hydrOXYzine HCl 25 MG Tab PO SCH ×2 (09:05→20:08)
[2023-05-29] MEDS: Sodium Chloride 1 GM Tab PO SCH ×2 (09:06→20:08)
[2023-05-29] MEDS: oxyCODONE 5 MG Tab PO SCH (09:06)
[2023-05-29] MEDS: Clotrimazole 1% Crm 30 GM Tube TOP SCH ×2 (09:07→20:09)
[2023-05-29] MEDS: Metoprolol Tartrate 25 MG Tab PO SCH ×2 (09:07→20:08)
[2023-05-29] MEDS: Carboxymethylcellulose Sodium 1% Ophth Gel 15 ML Bottle EYEBOTH SCH ×3 (09:08→20:09)
[2023-05-29] MEDS: Enoxaparin 40 MG/0.4 ML Syringe SUBCUT SCH (15:22)
[2023-05-29] MEDS: QUEtiapine 100 MG Tab PO SCH (20:08)
[2023-05-30] MEDS: Simethicone 80 MG Tab.Chew PO SCH ×2 (10:46→20:16)
[2023-05-30] MEDS: Clotrimazole 1% Crm 30 GM Tube TOP SCH ×2 (10:46→20:26)
[2023-05-30] MEDS: Carboxymethylcellulose Sodium 1% Ophth Gel 15 ML Bottle EYEBOTH SCH ×3 (10:46→20:27)
[2023-05-30] MEDS: Sodium Chloride 1 GM Tab PO SCH ×2 (10:46→20:18)
[2023-05-30] MEDS: Divalproex Sodium Delayed-Release 500 MG Tab.CR PO SCH ×2 (10:47→20:17)
[2023-05-30] MEDS: atorvaSTATin 40 MG Tab PO SCH (10:47)
[2023-05-30] MEDS: hydrOXYzine HCl 25 MG Tab PO SCH (10:47)
[2023-05-30] MEDS: Lacosamide 100 MG Tab PO SCH ×2 (10:47→20:17)
[2023-05-30] MEDS: levETIRAcetam 500 MG Tab PO SCH ×2 (10:47→20:17)
[2023-05-30] MEDS: Lidocaine 4% 1 each Patch TOP PRN (10:48)
[2023-05-30] MEDS: Venlafaxine 75 MG Cap.ER PO SCH (10:48)
[2023-05-30] MEDS: oxyCODONE 5 MG Tab PO SCH (10:48)
[2023-05-30] MEDS: Sennosides 8.6 MG Tab PO SCH (10:48)
[2023-05-30] MEDS: Metoprolol Tartrate 25 MG Tab PO SCH ×2 (10:53→20:18)
[2023-05-30] MEDS: Enoxaparin 40 MG/0.4 ML Syringe SUBCUT SCH (15:28)
[2023-05-30] MEDS: QUEtiapine 100 MG Tab PO SCH (20:17)
[2023-05-31] MEDS: hydrOXYzine HCl 25 MG Tab PO SCH ×3 (00:03→20:29)
[2023-05-31] MEDS: Clotrimazole 1% Crm 30 GM Tube TOP SCH ×2 (09:46→20:38)
[2023-05-31] MEDS: oxyCODONE 5 MG Tab PO SCH (09:47)
[2023-05-31] MEDS: Carboxymethylcellulose Sodium 1% Ophth Gel 15 ML Bottle EYEBOTH SCH ×3 (09:47→20:38)
[2023-05-31] MEDS: atorvaSTATin 40 MG Tab PO SCH (09:47)
[2023-05-31] MEDS: Divalproex Sodium Delayed-Release 500 MG Tab.CR PO SCH ×2 (09:48→20:29)
[2023-05-31] MEDS: Venlafaxine 75 MG Cap.ER PO SCH (09:48)
[2023-05-31] MEDS: Sennosides 8.6 MG Tab PO SCH (09:48)
[2023-05-31] MEDS: levETIRAcetam 500 MG Tab PO SCH ×2 (09:48→20:28)
[2023-05-31] MEDS: Lacosamide 100 MG Tab PO SCH ×2 (09:48→20:27)
[2023-05-31] MEDS: Simethicone 80 MG Tab.Chew PO SCH ×2 (09:48→20:29)
[2023-05-31] MEDS: Sodium Chloride 1 GM Tab PO SCH ×2 (09:49→20:28)
[2023-05-31] MEDS: Metoprolol Tartrate 25 MG Tab PO SCH ×2 (09:49→20:29)
[2023-05-31] MEDS: Enoxaparin 40 MG/0.4 ML Syringe SUBCUT SCH (16:06)
[2023-05-31] MEDS: QUEtiapine 100 MG Tab PO SCH (20:28)
[2023-06-01] MEDS: Metoprolol Tartrate 25 MG Tab PO SCH ×2 (09:33→20:20)
[2023-06-01] MEDS: Clotrimazole 1% Crm 30 GM Tube TOP SCH ×2 (09:33→20:21)
[2023-06-01] MEDS: Carboxymethylcellulose Sodium 1% Ophth Gel 15 ML Bottle EYEBOTH SCH ×3 (09:33→20:21)
[2023-06-01] MEDS: Acetaminophen 325 MG Tab PO PRN (09:33)
[2023-06-01] MEDS: oxyCODONE 5 MG Tab PO SCH (09:34)
[2023-06-01] MEDS: Sodium Chloride 1 GM Tab PO SCH ×2 (09:34→20:20)
[2023-06-01] MEDS: Simethicone 80 MG Tab.Chew PO SCH ×2 (09:34→20:20)
[2023-06-01] MEDS: Divalproex Sodium Delayed-Release 500 MG Tab.CR PO SCH ×2 (09:34→20:20)
[2023-06-01] MEDS: Sennosides 8.6 MG Tab PO SCH (09:34)
[2023-06-01] MEDS: Lacosamide 100 MG Tab PO SCH ×2 (09:34→20:20)
[2023-06-01] MEDS: atorvaSTATin 40 MG Tab PO SCH (09:35)
[2023-06-01] MEDS: levETIRAcetam 500 MG Tab PO SCH ×2 (09:35→20:20)
[2023-06-01] MEDS: Venlafaxine 75 MG Cap.ER PO SCH (09:35)
[2023-06-01] MEDS: hydrOXYzine HCl 25 MG Tab PO SCH ×2 (09:35→20:20)
[2023-06-01] MEDS: Lidocaine 4% 1 each Patch TOP PRN (09:46)
[2023-06-01] MEDS: Enoxaparin 40 MG/0.4 ML Syringe SUBCUT SCH (14:42)
[2023-06-01] MEDS: QUEtiapine 100 MG Tab PO SCH (20:20)
[2023-06-02] MEDS: Carboxymethylcellulose Sodium 1% Ophth Gel 15 ML Bottle EYEBOTH SCH ×3 (09:40→20:12)
[2023-06-02] MEDS: Lidocaine 4% 1 each Patch TOP PRN (09:41)
[2023-06-02] MEDS: Clotrimazole 1% Crm 30 GM Tube TOP SCH ×2 (09:41→20:12)
[2023-06-02] MEDS: Simethicone 80 MG Tab.Chew PO SCH ×2 (09:41→20:11)
[2023-06-02] MEDS: oxyCODONE 5 MG Tab PO SCH (09:42)
[2023-06-02] MEDS: Venlafaxine 75 MG Cap.ER PO SCH (09:42)
[2023-06-02] MEDS: levETIRAcetam 500 MG Tab PO SCH ×2 (09:42→20:11)
[2023-06-02] MEDS: Sennosides 8.6 MG Tab PO SCH (09:42)
[2023-06-02] MEDS: Lacosamide 100 MG Tab PO SCH ×2 (09:43→20:13)
[2023-06-02] MEDS: Acetaminophen 325 MG Tab PO PRN (09:43)
[2023-06-02] MEDS: atorvaSTATin 40 MG Tab PO SCH (09:43)
[2023-06-02] MEDS: Divalproex Sodium Delayed-Release 500 MG Tab.CR PO SCH ×2 (09:43→20:11)
[2023-06-02] MEDS: Sodium Chloride 1 GM Tab PO SCH ×2 (09:43→20:12)
[2023-06-02] MEDS: hydrOXYzine HCl 25 MG Tab PO SCH ×2 (09:44→20:12)
[2023-06-02] MEDS: Metoprolol Tartrate 25 MG Tab PO SCH ×2 (09:44→20:13)
[2023-06-02] MEDS: Enoxaparin 40 MG/0.4 ML Syringe SUBCUT SCH (14:08)
[2023-06-02] MEDS: QUEtiapine 100 MG Tab PO SCH (20:11)
[2023-06-03] MEDS: Carboxymethylcellulose Sodium 1% Ophth Gel 15 ML Bottle EYEBOTH SCH ×3 (09:04→20:12)
[2023-06-03] MEDS: Clotrimazole 1% Crm 30 GM Tube TOP SCH ×2 (09:04→20:11)
[2023-06-03] MEDS: Lidocaine 4% 1 each Patch TOP PRN (09:05)
[2023-06-03] MEDS: Simethicone 80 MG Tab.Chew PO SCH ×2 (09:05→20:15)
[2023-06-03] MEDS: Lacosamide 100 MG Tab PO SCH ×2 (09:06→20:14)
[2023-06-03] MEDS: oxyCODONE 5 MG Tab PO SCH (09:06)
[2023-06-03] MEDS: Acetaminophen 325 MG Tab PO PRN (09:07)
[2023-06-03] MEDS: Venlafaxine 75 MG Cap.ER PO SCH (09:07)
[2023-06-03] MEDS: Sennosides 8.6 MG Tab PO SCH (09:07)
[2023-06-03] MEDS: Divalproex Sodium Delayed-Release 500 MG Tab.CR PO SCH ×2 (09:07→20:09)
[2023-06-03] MEDS: Sodium Chloride 1 GM Tab PO SCH ×2 (09:07→20:14)
[2023-06-03] MEDS: atorvaSTATin 40 MG Tab PO SCH (09:08)
[2023-06-03] MEDS: hydrOXYzine HCl 25 MG Tab PO SCH ×2 (09:08→20:09)
[2023-06-03] MEDS: Metoprolol Tartrate 25 MG Tab PO SCH ×2 (09:08→20:10)
[2023-06-03] MEDS: levETIRAcetam 500 MG Tab PO SCH ×2 (09:08→20:13)
[2023-06-03] MEDS: Enoxaparin 40 MG/0.4 ML Syringe SUBCUT SCH (15:18)
[2023-06-03] MEDS: QUEtiapine 100 MG Tab PO SCH (20:13)
[2023-06-04] MEDS: Lidocaine 4% 1 each Patch TOP PRN (09:02)
[2023-06-04] MEDS: Carboxymethylcellulose Sodium 1% Ophth Gel 15 ML Bottle EYEBOTH SCH ×3 (09:02→20:55)
[2023-06-04] MEDS: Lacosamide 100 MG Tab PO SCH ×2 (09:03→20:54)
[2023-06-04] MEDS: Divalproex Sodium Delayed-Release 500 MG Tab.CR PO SCH ×2 (09:03→20:53)
[2023-06-04] MEDS: levETIRAcetam 500 MG Tab PO SCH ×2 (09:03→20:54)
[2023-06-04] MEDS: Sennosides 8.6 MG Tab PO SCH (09:03)
[2023-06-04] MEDS: Venlafaxine 75 MG Cap.ER PO SCH (09:03)
[2023-06-04] MEDS: Clotrimazole 1% Crm 30 GM Tube TOP SCH ×2 (09:03→20:55)
[2023-06-04] MEDS: Sodium Chloride 1 GM Tab PO SCH ×2 (09:03→20:55)
[2023-06-04] MEDS: atorvaSTATin 40 MG Tab PO SCH (09:03)
[2023-06-04] MEDS: Simethicone 80 MG Tab.Chew PO SCH ×2 (09:04→20:53)
[2023-06-04] MEDS: oxyCODONE 5 MG Tab PO SCH (09:04)
[2023-06-04] MEDS: hydrOXYzine HCl 25 MG Tab PO SCH ×2 (09:04→20:54)
[2023-06-04] MEDS: Metoprolol Tartrate 25 MG Tab PO SCH ×2 (09:04→20:54)
[2023-06-04] MEDS: Enoxaparin 40 MG/0.4 ML Syringe SUBCUT SCH (15:56)
[2023-06-04] MEDS: QUEtiapine 100 MG Tab PO SCH (20:53)
[2023-06-04] MEDS: Acetaminophen 325 MG Tab PO PRN (20:57)
[2023-06-05] MEDS: Lidocaine 4% 1 each Patch TOP PRN (09:00)
[2023-06-05] MEDS: Carboxymethylcellulose Sodium 1% Ophth Gel 15 ML Bottle EYEBOTH SCH ×3 (09:01→21:01)
[2023-06-05] MEDS: Clotrimazole 1% Crm 30 GM Tube TOP SCH ×2 (09:01→21:02)
[2023-06-05] MEDS: Divalproex Sodium Delayed-Release 500 MG Tab.CR PO SCH ×2 (09:03→20:51)
[2023-06-05] MEDS: Simethicone 80 MG Tab.Chew PO SCH ×2 (09:03→20:49)
[2023-06-05] MEDS: Lacosamide 100 MG Tab PO SCH ×2 (09:05→20:51)
[2023-06-05] MEDS: levETIRAcetam 500 MG Tab PO SCH ×2 (09:05→20:50)
[2023-06-05] MEDS: Sennosides 8.6 MG Tab PO SCH (09:05)
[2023-06-05] MEDS: Venlafaxine 75 MG Cap.ER PO SCH (09:05)
[2023-06-05] MEDS: hydrOXYzine HCl 25 MG Tab PO SCH ×2 (09:07→20:51)
[2023-06-05] MEDS: Metoprolol Tartrate 25 MG Tab PO SCH ×2 (09:07→20:51)
[2023-06-05] MEDS: Sodium Chloride 1 GM Tab PO SCH ×2 (09:07→20:50)
[2023-06-05] MEDS: oxyCODONE 5 MG Tab PO SCH (09:07)
[2023-06-05] MEDS: atorvaSTATin 40 MG Tab PO SCH (09:08)
[2023-06-05] MEDS: Enoxaparin 40 MG/0.4 ML Syringe SUBCUT SCH (16:07)
[2023-06-05] MEDS: QUEtiapine 100 MG Tab PO SCH (20:50)
[2023-06-06] MEDS: Lacosamide 100 MG Tab PO SCH ×2 (08:39→20:41)
[2023-06-06] MEDS: hydrOXYzine HCl 25 MG Tab PO SCH ×2 (08:39→20:40)
[2023-06-06] MEDS: levETIRAcetam 500 MG Tab PO SCH ×2 (08:39→20:41)
[2023-06-06] MEDS: atorvaSTATin 40 MG Tab PO SCH (08:39)
[2023-06-06] MEDS: Sennosides 8.6 MG Tab PO SCH (08:39)
[2023-06-06] MEDS: Divalproex Sodium Delayed-Release 500 MG Tab.CR PO SCH ×2 (08:40→20:39)
[2023-06-06] MEDS: Sodium Chloride 1 GM Tab PO SCH ×2 (08:40→20:37)
[2023-06-06] MEDS: Simethicone 80 MG Tab.Chew PO SCH ×2 (08:40→20:39)
[2023-06-06] MEDS: Venlafaxine 75 MG Cap.ER PO SCH (08:40)
[2023-06-06] MEDS: Carboxymethylcellulose Sodium 1% Ophth Gel 15 ML Bottle EYEBOTH SCH ×3 (08:41→20:42)
[2023-06-06] MEDS: oxyCODONE 5 MG Tab PO SCH (08:42)
[2023-06-06] MEDS: Clotrimazole 1% Crm 30 GM Tube TOP SCH ×2 (08:42→20:42)
[2023-06-06] MEDS: Metoprolol Tartrate 25 MG Tab PO SCH ×2 (08:43→20:39)
[2023-06-06] MEDS: Enoxaparin 40 MG/0.4 ML Syringe SUBCUT SCH (14:38)
[2023-06-06] MEDS: QUEtiapine 100 MG Tab PO SCH (20:38)
[2023-06-06] MEDS: Acetaminophen 325 MG Tab PO PRN (20:40)
[2023-06-07] MEDS: Metoprolol Tartrate 25 MG Tab PO SCH ×2 (08:07→21:06)
[2023-06-07] MEDS: Lidocaine 4% 1 each Patch TOP PRN (08:07)
[2023-06-07] MEDS: Sodium Chloride 1 GM Tab PO SCH ×2 (08:08→21:06)
[2023-06-07] MEDS: Simethicone 80 MG Tab.Chew PO SCH ×2 (08:08→21:05)
[2023-06-07] MEDS: Venlafaxine 75 MG Cap.ER PO SCH (08:08)
[2023-06-07] MEDS: Sennosides 8.6 MG Tab PO SCH (08:09)
[2023-06-07] MEDS: Lacosamide 100 MG Tab PO SCH ×2 (08:09→21:09)
[2023-06-07] MEDS: Divalproex Sodium Delayed-Release 500 MG Tab.CR PO SCH ×2 (08:09→21:08)
[2023-06-07] MEDS: levETIRAcetam 500 MG Tab PO SCH ×2 (08:09→21:08)
[2023-06-07] MEDS: hydrOXYzine HCl 25 MG Tab PO SCH ×2 (08:09→21:08)
[2023-06-07] MEDS: oxyCODONE 5 MG Tab PO SCH (08:10)
[2023-06-07] MEDS: Clotrimazole 1% Crm 30 GM Tube TOP SCH ×2 (08:10→21:09)
[2023-06-07] MEDS: Carboxymethylcellulose Sodium 1% Ophth Gel 15 ML Bottle EYEBOTH SCH ×3 (08:10→21:09)
[2023-06-07] MEDS: atorvaSTATin 40 MG Tab PO SCH (08:10)
[2023-06-07] MEDS: Enoxaparin 40 MG/0.4 ML Syringe SUBCUT SCH (16:22)
[2023-06-07] MEDS: QUEtiapine 100 MG Tab PO SCH (21:06)
[2023-06-07] MEDS: Acetaminophen 325 MG Tab PO PRN (21:07)
[2023-06-08] MEDS: Divalproex Sodium Delayed-Release 500 MG Tab.CR PO SCH ×2 (08:23→21:13)
[2023-06-08] MEDS: atorvaSTATin 40 MG Tab PO SCH (08:23)
[2023-06-08] MEDS: Lidocaine 4% 1 each Patch TOP PRN (08:23)
[2023-06-08] MEDS: Sennosides 8.6 MG Tab PO SCH (08:24)
[2023-06-08] MEDS: Sodium Chloride 1 GM Tab PO SCH ×2 (08:24→21:14)
[2023-06-08] MEDS: Venlafaxine 75 MG Cap.ER PO SCH (08:24)
[2023-06-08] MEDS: levETIRAcetam 500 MG Tab PO SCH ×2 (08:24→21:11)
[2023-06-08] MEDS: Metoprolol Tartrate 25 MG Tab PO SCH ×2 (08:24→21:13)
[2023-06-08] MEDS: Simethicone 80 MG Tab.Chew PO SCH ×2 (08:24→21:09)
[2023-06-08] MEDS: Lacosamide 100 MG Tab PO SCH ×2 (08:24→21:14)
[2023-06-08] MEDS: oxyCODONE 5 MG Tab PO SCH (08:25)
[2023-06-08] MEDS: Carboxymethylcellulose Sodium 1% Ophth Gel 15 ML Bottle EYEBOTH SCH ×3 (08:25→21:15)
[2023-06-08] MEDS: hydrOXYzine HCl 25 MG Tab PO SCH ×2 (08:25→21:09)
[2023-06-08] MEDS: Clotrimazole 1% Crm 30 GM Tube TOP SCH ×2 (08:25→21:14)
[2023-06-08] MEDS: Enoxaparin 40 MG/0.4 ML Syringe SUBCUT SCH (14:15)
[2023-06-08] MEDS: Acetaminophen 325 MG Tab PO PRN (21:10)
[2023-06-08] MEDS: QUEtiapine 100 MG Tab PO SCH (21:12)
[2023-06-09] MEDS: Clotrimazole 1% Crm 30 GM Tube TOP SCH ×2 (08:45→20:55)
[2023-06-09] MEDS: Carboxymethylcellulose Sodium 1% Ophth Gel 15 ML Bottle EYEBOTH SCH ×3 (08:45→20:55)
[2023-06-09] MEDS: Lidocaine 4% 1 each Patch TOP PRN (08:45)
[2023-06-09] MEDS: hydrOXYzine HCl 25 MG Tab PO SCH ×2 (08:46→20:54)
[2023-06-09] MEDS: Sodium Chloride 1 GM Tab PO SCH ×2 (08:46→20:52)
[2023-06-09] MEDS: oxyCODONE 5 MG Tab PO SCH (08:46)
[2023-06-09] MEDS: Venlafaxine 75 MG Cap.ER PO SCH (08:46)
[2023-06-09] MEDS: levETIRAcetam 500 MG Tab PO SCH ×2 (08:46→20:54)
[2023-06-09] MEDS: Simethicone 80 MG Tab.Chew PO SCH ×2 (08:46→20:53)
[2023-06-09] MEDS: atorvaSTATin 40 MG Tab PO SCH (08:46)
[2023-06-09] MEDS: Sennosides 8.6 MG Tab PO SCH (08:47)
[2023-06-09] MEDS: Metoprolol Tartrate 25 MG Tab PO SCH ×2 (08:47→20:54)
[2023-06-09] MEDS: Lacosamide 100 MG Tab PO SCH ×2 (08:47→20:54)
[2023-06-09] MEDS: Divalproex Sodium Delayed-Release 500 MG Tab.CR PO SCH ×2 (08:47→20:54)
[2023-06-09] MEDS: Enoxaparin 40 MG/0.4 ML Syringe SUBCUT SCH (15:02)
[2023-06-09] MEDS: QUEtiapine 100 MG Tab PO SCH (20:51)
[2023-06-10] MEDS: levETIRAcetam 500 MG Tab PO SCH ×2 (09:38→20:26)
[2023-06-10] MEDS: Simethicone 80 MG Tab.Chew PO SCH ×2 (09:38→20:24)
[2023-06-10] MEDS: Venlafaxine 75 MG Cap.ER PO SCH (09:38)
[2023-06-10] MEDS: oxyCODONE 5 MG Tab PO SCH (09:39)
[2023-06-10] MEDS: Lacosamide 100 MG Tab PO SCH ×2 (09:39→20:26)
[2023-06-10] MEDS: Divalproex Sodium Delayed-Release 500 MG Tab.CR PO SCH ×2 (09:39→20:25)
[2023-06-10] MEDS: Metoprolol Tartrate 25 MG Tab PO SCH ×2 (09:40→20:26)
[2023-06-10] MEDS: Sennosides 8.6 MG Tab PO SCH (09:40)
[2023-06-10] MEDS: Sodium Chloride 1 GM Tab PO SCH ×2 (09:40→20:25)
[2023-06-10] MEDS: atorvaSTATin 40 MG Tab PO SCH (09:40)
[2023-06-10] MEDS: hydrOXYzine HCl 25 MG Tab PO SCH ×2 (09:42→20:25)
[2023-06-10] MEDS: Carboxymethylcellulose Sodium 1% Ophth Gel 15 ML Bottle EYEBOTH PRN (09:48)
[2023-06-10] MEDS: Carboxymethylcellulose Sodium 1% Ophth Gel 15 ML Bottle EYEBOTH SCH ×3 (09:49→20:30)
[2023-06-10] MEDS: Clotrimazole 1% Crm 30 GM Tube TOP SCH ×2 (09:49→20:29)
[2023-06-10] MEDS: Enoxaparin 40 MG/0.4 ML Syringe SUBCUT SCH (15:52)
[2023-06-10] MEDS: QUEtiapine 100 MG Tab PO SCH (20:27)
[2023-06-11] MEDS: levETIRAcetam 500 MG Tab PO SCH ×2 (08:06→20:44)
[2023-06-11] MEDS: Lacosamide 100 MG Tab PO SCH ×2 (08:07→20:43)
[2023-06-11] MEDS: Divalproex Sodium Delayed-Release 500 MG Tab.CR PO SCH ×2 (08:07→20:44)
[2023-06-11] MEDS: hydrOXYzine HCl 25 MG Tab PO SCH ×2 (08:07→20:44)
[2023-06-11] MEDS: Metoprolol Tartrate 25 MG Tab PO SCH ×2 (08:07→20:45)
[2023-06-11] MEDS: Sennosides 8.6 MG Tab PO SCH (08:07)
[2023-06-11] MEDS: Venlafaxine 75 MG Cap.ER PO SCH (08:07)
[2023-06-11] MEDS: Sodium Chloride 1 GM Tab PO SCH ×2 (08:07→20:44)
[2023-06-11] MEDS: oxyCODONE 5 MG Tab PO SCH (08:07)
[2023-06-11] MEDS: atorvaSTATin 40 MG Tab PO SCH (08:07)
[2023-06-11] MEDS: Lidocaine 4% 1 each Patch TOP PRN (08:08)
[2023-06-11] MEDS: Simethicone 80 MG Tab.Chew PO SCH ×2 (08:08→20:42)
[2023-06-11] MEDS: Carboxymethylcellulose Sodium 1% Ophth Gel 15 ML Bottle EYEBOTH SCH ×3 (09:01→20:48)
[2023-06-11] MEDS: Clotrimazole 1% Crm 30 GM Tube TOP SCH ×2 (09:01→20:49)
[2023-06-11] MEDS: Enoxaparin 40 MG/0.4 ML Syringe SUBCUT SCH (14:55)
[2023-06-11] MEDS: QUEtiapine 100 MG Tab PO SCH (20:45)
[2023-06-12] MEDS: Simethicone 80 MG Tab.Chew PO SCH ×2 (08:03→20:17)
[2023-06-12] MEDS: Sennosides 8.6 MG Tab PO SCH (08:03)
[2023-06-12] MEDS: levETIRAcetam 500 MG Tab PO SCH ×2 (08:08→20:17)
[2023-06-12] MEDS: Sodium Chloride 1 GM Tab PO SCH ×2 (08:08→20:17)
[2023-06-12] MEDS: atorvaSTATin 40 MG Tab PO SCH (08:08)
[2023-06-12] MEDS: Divalproex Sodium Delayed-Release 500 MG Tab.CR PO SCH ×2 (08:08→20:18)
[2023-06-12] MEDS: oxyCODONE 5 MG Tab PO SCH (08:09)
[2023-06-12] MEDS: Lacosamide 100 MG Tab PO SCH ×2 (08:09→20:18)
[2023-06-12] MEDS: Metoprolol Tartrate 25 MG Tab PO SCH ×2 (08:09→20:17)
[2023-06-12] MEDS: Venlafaxine 75 MG Cap.ER PO SCH (08:10)
[2023-06-12] MEDS: hydrOXYzine HCl 25 MG Tab PO SCH ×2 (08:10→20:18)
[2023-06-12] MEDS: Clotrimazole 1% Crm 30 GM Tube TOP SCH ×2 (08:19→20:19)
[2023-06-12] MEDS: Carboxymethylcellulose Sodium 1% Ophth Gel 15 ML Bottle EYEBOTH SCH ×3 (08:19→20:18)
[2023-06-12] MEDS: Enoxaparin 40 MG/0.4 ML Syringe SUBCUT SCH (14:32)
[2023-06-12] MEDS: QUEtiapine 100 MG Tab PO SCH (20:18)
[2023-06-13] MEDS: Sennosides 8.6 MG Tab PO SCH (09:03)
[2023-06-13] MEDS: Simethicone 80 MG Tab.Chew PO SCH ×2 (09:03→20:18)
[2023-06-13] MEDS: hydrOXYzine HCl 25 MG Tab PO SCH ×2 (09:04→20:19)
[2023-06-13] MEDS: Lacosamide 100 MG Tab PO SCH ×2 (09:04→20:19)
[2023-06-13] MEDS: Divalproex Sodium Delayed-Release 500 MG Tab.CR PO SCH ×2 (09:05→20:17)
[2023-06-13] MEDS: atorvaSTATin 40 MG Tab PO SCH (09:05)
[2023-06-13] MEDS: levETIRAcetam 500 MG Tab PO SCH ×2 (09:05→20:19)
[2023-06-13] MEDS: Sodium Chloride 1 GM Tab PO SCH ×2 (09:06→20:18)
[2023-06-13] MEDS: oxyCODONE 5 MG Tab PO SCH (09:06)
[2023-06-13] MEDS: Venlafaxine 75 MG Cap.ER PO SCH (09:07)
[2023-06-13] MEDS: Lidocaine 4% 1 each Patch TOP PRN (09:08)
[2023-06-13] MEDS: Metoprolol Tartrate 25 MG Tab PO SCH ×2 (09:08→20:17)
[2023-06-13] MEDS: Carboxymethylcellulose Sodium 1% Ophth Gel 15 ML Bottle EYEBOTH SCH ×3 (09:09→20:21)
[2023-06-13] MEDS: Clotrimazole 1% Crm 30 GM Tube TOP SCH ×2 (09:09→20:19)
[2023-06-13] MEDS: Enoxaparin 40 MG/0.4 ML Syringe SUBCUT SCH (16:05)
[2023-06-13] MEDS: QUEtiapine 100 MG Tab PO SCH (20:18)
[2023-06-14] MEDS: Divalproex Sodium Delayed-Release 500 MG Tab.CR PO SCH ×2 (08:10→20:53)
[2023-06-14] MEDS: hydrOXYzine HCl 25 MG Tab PO SCH ×2 (08:10→20:52)
[2023-06-14] MEDS: Venlafaxine 75 MG Cap.ER PO SCH (08:10)
[2023-06-14] MEDS: oxyCODONE 5 MG Tab PO SCH (08:11)
[2023-06-14] MEDS: levETIRAcetam 500 MG Tab PO SCH ×2 (08:11→20:53)
[2023-06-14] MEDS: Simethicone 80 MG Tab.Chew PO SCH ×2 (08:11→20:51)
[2023-06-14] MEDS: Sennosides 8.6 MG Tab PO SCH (08:11)
[2023-06-14] MEDS: atorvaSTATin 40 MG Tab PO SCH (08:12)
[2023-06-14] MEDS: Sodium Chloride 1 GM Tab PO SCH ×2 (08:12→20:52)
[2023-06-14] MEDS: Metoprolol Tartrate 25 MG Tab PO SCH ×2 (08:12→20:53)
[2023-06-14] MEDS: Lacosamide 100 MG Tab PO SCH ×2 (08:17→20:53)
[2023-06-14] MEDS: Clotrimazole 1% Crm 30 GM Tube TOP SCH ×2 (08:17→20:54)
[2023-06-14] MEDS: Carboxymethylcellulose Sodium 1% Ophth Gel 15 ML Bottle EYEBOTH SCH ×3 (08:18→20:54)
[2023-06-14] MEDS: Enoxaparin 40 MG/0.4 ML Syringe SUBCUT SCH (15:29)
[2023-06-14] MEDS: QUEtiapine 100 MG Tab PO SCH (20:52)
[2023-06-15] MEDS: Simethicone 80 MG Tab.Chew PO SCH ×2 (10:09→20:29)
[2023-06-15] MEDS: Sodium Chloride 1 GM Tab PO SCH ×2 (10:09→20:29)
[2023-06-15] MEDS: levETIRAcetam 500 MG Tab PO SCH ×2 (10:10→20:29)
[2023-06-15] MEDS: Venlafaxine 75 MG Cap.ER PO SCH (10:10)
[2023-06-15] MEDS: Sennosides 8.6 MG Tab PO SCH (10:10)
[2023-06-15] MEDS: Metoprolol Tartrate 25 MG Tab PO SCH ×2 (10:10→20:29)
[2023-06-15] MEDS: oxyCODONE 5 MG Tab PO SCH (10:13)
[2023-06-15] MEDS: hydrOXYzine HCl 25 MG Tab PO SCH ×2 (10:14→20:29)
[2023-06-15] MEDS: Divalproex Sodium Delayed-Release 500 MG Tab.CR PO SCH ×2 (10:14→20:28)
[2023-06-15] MEDS: atorvaSTATin 40 MG Tab PO SCH (10:14)
[2023-06-15] MEDS: Carboxymethylcellulose Sodium 1% Ophth Gel 15 ML Bottle EYEBOTH SCH ×3 (10:15→20:30)
[2023-06-15] MEDS: Lidocaine 4% 1 each Patch TOP PRN (10:15)
[2023-06-15] MEDS: Clotrimazole 1% Crm 30 GM Tube TOP SCH ×2 (10:16→20:30)
[2023-06-15] MEDS: Lacosamide 100 MG Tab PO SCH ×2 (10:16→20:29)
[2023-06-15] MEDS: Enoxaparin 40 MG/0.4 ML Syringe SUBCUT SCH (15:35)
[2023-06-15] MEDS: QUEtiapine 100 MG Tab PO SCH (20:29)
[2023-06-16] MEDS: Venlafaxine 75 MG Cap.ER PO SCH (09:19)
[2023-06-16] MEDS: Simethicone 80 MG Tab.Chew PO SCH ×2 (09:19→20:35)
[2023-06-16] MEDS: Lidocaine 4% 1 each Patch TOP PRN (09:19)
[2023-06-16] MEDS: Lacosamide 100 MG Tab PO SCH ×2 (09:20→20:36)
[2023-06-16] MEDS: Sennosides 8.6 MG Tab PO SCH (09:20)
[2023-06-16] MEDS: atorvaSTATin 40 MG Tab PO SCH (09:20)
[2023-06-16] MEDS: Divalproex Sodium Delayed-Release 500 MG Tab.CR PO SCH ×2 (09:20→20:34)
[2023-06-16] MEDS: Metoprolol Tartrate 25 MG Tab PO SCH ×2 (09:20→20:38)
[2023-06-16] MEDS: oxyCODONE 5 MG Tab PO SCH (09:20)
[2023-06-16] MEDS: hydrOXYzine HCl 25 MG Tab PO SCH ×2 (09:20→20:36)
[2023-06-16] MEDS: Carboxymethylcellulose Sodium 1% Ophth Gel 15 ML Bottle EYEBOTH SCH ×3 (09:21→20:38)
[2023-06-16] MEDS: Clotrimazole 1% Crm 30 GM Tube TOP SCH ×2 (09:21→20:38)
[2023-06-16] MEDS: Sodium Chloride 1 GM Tab PO SCH ×2 (09:21→20:36)
[2023-06-16] MEDS: levETIRAcetam 500 MG Tab PO SCH ×2 (09:21→20:35)
[2023-06-16] MEDS: Enoxaparin 40 MG/0.4 ML Syringe SUBCUT SCH (15:05)
[2023-06-16] MEDS: QUEtiapine 100 MG Tab PO SCH (20:36)
[2023-06-17] MEDS: Carboxymethylcellulose Sodium 1% Ophth Gel 15 ML Bottle EYEBOTH SCH ×3 (08:48→20:17)
[2023-06-17] MEDS: Lidocaine 4% 1 each Patch TOP PRN (08:49)
[2023-06-17] MEDS: Sodium Chloride 1 GM Tab PO SCH ×2 (08:49→20:14)
[2023-06-17] MEDS: Simethicone 80 MG Tab.Chew PO SCH ×2 (08:49→20:13)
[2023-06-17] MEDS: Metoprolol Tartrate 25 MG Tab PO SCH ×2 (08:49→20:15)
[2023-06-17] MEDS: Lacosamide 100 MG Tab PO SCH ×2 (08:49→20:13)
[2023-06-17] MEDS: Clotrimazole 1% Crm 30 GM Tube TOP SCH ×2 (08:49→20:17)
[2023-06-17] MEDS: hydrOXYzine HCl 25 MG Tab PO SCH ×2 (08:50→20:13)
[2023-06-17] MEDS: oxyCODONE 5 MG Tab PO SCH (08:50)
[2023-06-17] MEDS: levETIRAcetam 500 MG Tab PO SCH ×2 (08:50→20:14)
[2023-06-17] MEDS: Divalproex Sodium Delayed-Release 500 MG Tab.CR PO SCH ×2 (08:50→20:14)
[2023-06-17] MEDS: Sennosides 8.6 MG Tab PO SCH (08:50)
[2023-06-17] MEDS: Venlafaxine 75 MG Cap.ER PO SCH (08:50)
[2023-06-17] MEDS: atorvaSTATin 40 MG Tab PO SCH (08:51)
[2023-06-17] MEDS: Enoxaparin 40 MG/0.4 ML Syringe SUBCUT SCH (16:37)
[2023-06-17] MEDS: QUEtiapine 100 MG Tab PO SCH (20:14)
[2023-06-18] MEDS: atorvaSTATin 40 MG Tab PO SCH (09:15)
[2023-06-18] MEDS: Lacosamide 100 MG Tab PO SCH ×2 (09:15→20:04)
[2023-06-18] MEDS: levETIRAcetam 500 MG Tab PO SCH ×2 (09:15→20:03)
[2023-06-18] MEDS: Simethicone 80 MG Tab.Chew PO SCH ×2 (09:15→20:04)
[2023-06-18] MEDS: Divalproex Sodium Delayed-Release 500 MG Tab.CR PO SCH ×2 (09:15→20:04)
[2023-06-18] MEDS: Sodium Chloride 1 GM Tab PO SCH ×2 (09:15→20:03)
[2023-06-18] MEDS: Venlafaxine 75 MG Cap.ER PO SCH (09:15)
[2023-06-18] MEDS: hydrOXYzine HCl 25 MG Tab PO SCH ×2 (09:16→20:04)
[2023-06-18] MEDS: Metoprolol Tartrate 25 MG Tab PO SCH ×2 (09:16→20:04)
[2023-06-18] MEDS: Lidocaine 4% 1 each Patch TOP PRN (09:16)
[2023-06-18] MEDS: oxyCODONE 5 MG Tab PO SCH (09:16)
[2023-06-18] MEDS: Sennosides 8.6 MG Tab PO SCH (09:17)
[2023-06-18] MEDS: Clotrimazole 1% Crm 30 GM Tube TOP SCH ×2 (09:24→20:03)
[2023-06-18] MEDS: Carboxymethylcellulose Sodium 1% Ophth Gel 15 ML Bottle EYEBOTH SCH ×3 (09:24→20:03)
[2023-06-18] MEDS: Cholecalciferol (Vitamin D3) 25 MCG Tab PO SCH (15:21)
[2023-06-18] MEDS: Enoxaparin 40 MG/0.4 ML Syringe SUBCUT SCH (15:21)
[2023-06-18] MEDS: Benztropine 1 MG Tab PO SCH (20:03)
[2023-06-18] MEDS: QUEtiapine 100 MG Tab PO SCH (20:04)
[2023-06-19] MEDS: levETIRAcetam 500 MG Tab PO SCH ×2 (09:56→20:28)
[2023-06-19] MEDS: Sennosides 8.6 MG Tab PO SCH (09:56)
[2023-06-19] MEDS: Folic Acid 1 MG Tab PO SCH (09:56)
[2023-06-19] MEDS: Thiamine 100 MG Tab PO SCH (09:56)
[2023-06-19] MEDS: Venlafaxine 75 MG Cap.ER PO SCH (09:57)
[2023-06-19] MEDS: Cholecalciferol (Vitamin D3) 25 MCG Tab PO SCH (09:57)
[2023-06-19] MEDS: Metoprolol Tartrate 25 MG Tab PO SCH ×2 (09:57→20:29)
[2023-06-19] MEDS: hydrOXYzine HCl 25 MG Tab PO SCH ×2 (09:57→20:30)
[2023-06-19] MEDS: Lacosamide 100 MG Tab PO SCH ×2 (09:57→20:30)
[2023-06-19] MEDS: Simethicone 80 MG Tab.Chew PO SCH ×2 (09:57→20:29)
[2023-06-19] MEDS: atorvaSTATin 40 MG Tab PO SCH (09:57)
[2023-06-19] MEDS: Sodium Chloride 1 GM Tab PO SCH (09:57)
[2023-06-19] MEDS: oxyCODONE 5 MG Tab PO SCH (10:00)
[2023-06-19] MEDS: Clotrimazole 1% Crm 30 GM Tube TOP SCH ×2 (10:01→20:26)
[2023-06-19] MEDS: Divalproex Sodium Delayed-Release 500 MG Tab.CR PO SCH ×2 (10:01→20:30)
[2023-06-19] MEDS: Carboxymethylcellulose Sodium 1% Ophth Gel 15 ML Bottle EYEBOTH SCH ×3 (10:02→20:26)
[2023-06-19] MEDS: Enoxaparin 40 MG/0.4 ML Syringe SUBCUT SCH (15:57)
[2023-06-19] MEDS: QUEtiapine 100 MG Tab PO SCH (20:27)
[2023-06-19] MEDS: Acetaminophen 325 MG Tab PO PRN (20:27)
[2023-06-19] MEDS: Benztropine 1 MG Tab PO SCH (20:28)
[2023-06-20] MEDS: Divalproex Sodium Delayed-Release 500 MG Tab.CR PO SCH ×2 (10:01→20:50)
[2023-06-20] MEDS: Venlafaxine 75 MG Cap.ER PO SCH (10:01)
[2023-06-20] MEDS: Simethicone 80 MG Tab.Chew PO SCH ×2 (10:02→20:51)
[2023-06-20] MEDS: Lacosamide 100 MG Tab PO SCH ×2 (10:02→20:50)
[2023-06-20] MEDS: hydrOXYzine HCl 25 MG Tab PO SCH ×2 (10:02→20:49)
[2023-06-20] MEDS: atorvaSTATin 40 MG Tab PO SCH (10:03)
[2023-06-20] MEDS: oxyCODONE 5 MG Tab PO SCH (10:03)
[2023-06-20] MEDS: Folic Acid 1 MG Tab PO SCH (10:04)
[2023-06-20] MEDS: Thiamine 100 MG Tab PO SCH (10:04)
[2023-06-20] MEDS: Cholecalciferol (Vitamin D3) 25 MCG Tab PO SCH (10:04)
[2023-06-20] MEDS: Sennosides 8.6 MG Tab PO SCH (10:04)
[2023-06-20] MEDS: levETIRAcetam 500 MG Tab PO SCH ×2 (10:05→20:48)
[2023-06-20] MEDS: Metoprolol Tartrate 25 MG Tab PO SCH ×2 (10:05→20:49)
[2023-06-20] MEDS: Lidocaine 4% 1 each Patch TOP PRN (10:06)
[2023-06-20] MEDS: Clotrimazole 1% Crm 30 GM Tube TOP SCH ×2 (10:06→20:52)
[2023-06-20] MEDS: Carboxymethylcellulose Sodium 1% Ophth Gel 15 ML Bottle EYEBOTH SCH ×3 (10:06→20:52)
[2023-06-20] MEDS: Sodium Chloride 1 GM Tab PO SCH ×3 (10:40→20:51)
[2023-06-20] MEDS: Enoxaparin 40 MG/0.4 ML Syringe SUBCUT SCH (16:51)
[2023-06-20] MEDS: Benztropine 1 MG Tab PO SCH (20:48)
[2023-06-20] MEDS: QUEtiapine 100 MG Tab PO SCH (20:50)
[2023-06-21] MEDS: oxyCODONE 5 MG Tab PO SCH (09:11)
[2023-06-21] MEDS: Thiamine 100 MG Tab PO SCH (09:12)
[2023-06-21] MEDS: Metoprolol Tartrate 25 MG Tab PO SCH ×2 (09:12→20:40)
[2023-06-21] MEDS: levETIRAcetam 500 MG Tab PO SCH ×2 (09:13→20:39)
[2023-06-21] MEDS: Divalproex Sodium Delayed-Release 500 MG Tab.CR PO SCH ×2 (09:13→20:41)
[2023-06-21] MEDS: Sodium Chloride 1 GM Tab PO SCH ×2 (09:13→20:42)
[2023-06-21] MEDS: Cholecalciferol (Vitamin D3) 25 MCG Tab PO SCH (09:13)
[2023-06-21] MEDS: Lacosamide 100 MG Tab PO SCH ×2 (09:14→20:42)
[2023-06-21] MEDS: Venlafaxine 75 MG Cap.ER PO SCH (09:14)
[2023-06-21] MEDS: Sennosides 8.6 MG Tab PO SCH (09:14)
[2023-06-21] MEDS: atorvaSTATin 40 MG Tab PO SCH (09:14)
[2023-06-21] MEDS: Simethicone 80 MG Tab.Chew PO SCH ×2 (09:14→20:39)
[2023-06-21] MEDS: hydrOXYzine HCl 25 MG Tab PO SCH ×2 (09:14→20:40)
[2023-06-21] MEDS: Folic Acid 1 MG Tab PO SCH (09:14)
[2023-06-21] MEDS: Carboxymethylcellulose Sodium 1% Ophth Gel 15 ML Bottle EYEBOTH SCH ×3 (09:15→20:42)
[2023-06-21] MEDS: Clotrimazole 1% Crm 30 GM Tube TOP SCH ×2 (09:15→20:42)
[2023-06-21] MEDS: Enoxaparin 40 MG/0.4 ML Syringe SUBCUT SCH (15:29)
[2023-06-21] MEDS: QUEtiapine 100 MG Tab PO SCH (20:39)
[2023-06-21] MEDS: Benztropine 1 MG Tab PO SCH (20:41)
[2023-06-22] MEDS: Cholecalciferol (Vitamin D3) 25 MCG Tab PO SCH (10:40)
[2023-06-22] MEDS: Sennosides 8.6 MG Tab PO SCH (10:41)
[2023-06-22] MEDS: Lacosamide 100 MG Tab PO SCH ×2 (10:41→20:07)
[2023-06-22] MEDS: Metoprolol Tartrate 25 MG Tab PO SCH ×2 (10:41→20:08)
[2023-06-22] MEDS: Divalproex Sodium Delayed-Release 500 MG Tab.CR PO SCH ×2 (10:41→20:06)
[2023-06-22] MEDS: oxyCODONE 5 MG Tab PO SCH (10:41)
[2023-06-22] MEDS: hydrOXYzine HCl 25 MG Tab PO SCH ×2 (10:42→20:07)
[2023-06-22] MEDS: Simethicone 80 MG Tab.Chew PO SCH ×2 (10:42→20:08)
[2023-06-22] MEDS: Sodium Chloride 1 GM Tab PO SCH ×2 (10:42→20:06)
[2023-06-22] MEDS: levETIRAcetam 500 MG Tab PO SCH ×2 (10:42→20:07)
[2023-06-22] MEDS: atorvaSTATin 40 MG Tab PO SCH (10:43)
[2023-06-22] MEDS: Folic Acid 1 MG Tab PO SCH (10:43)
[2023-06-22] MEDS: Thiamine 100 MG Tab PO SCH (10:43)
[2023-06-22] MEDS: Carboxymethylcellulose Sodium 1% Ophth Gel 15 ML Bottle EYEBOTH SCH ×3 (10:43→20:12)
[2023-06-22] MEDS: Venlafaxine 75 MG Cap.ER PO SCH (10:43)
[2023-06-22] MEDS: Clotrimazole 1% Crm 30 GM Tube TOP SCH ×2 (10:44→20:12)
[2023-06-22] MEDS: Enoxaparin 40 MG/0.4 ML Syringe SUBCUT SCH (15:25)
[2023-06-22] MEDS: Lidocaine 4% 1 each Patch TOP PRN (15:41)
[2023-06-22] MEDS: Benztropine 1 MG Tab PO SCH (20:07)
[2023-06-22] MEDS: QUEtiapine 100 MG Tab PO SCH (20:08)
[2023-06-23] MEDS: Venlafaxine 75 MG Cap.ER PO SCH (09:48)
[2023-06-23] MEDS: Divalproex Sodium Delayed-Release 500 MG Tab.CR PO SCH ×2 (09:48→20:15)
[2023-06-23] MEDS: hydrOXYzine HCl 25 MG Tab PO SCH ×2 (09:48→20:15)
[2023-06-23] MEDS: oxyCODONE 5 MG Tab PO SCH (09:49)
[2023-06-23] MEDS: Sennosides 8.6 MG Tab PO SCH (09:49)
[2023-06-23] MEDS: Cholecalciferol (Vitamin D3) 25 MCG Tab PO SCH (09:49)
[2023-06-23] MEDS: Clotrimazole 1% Crm 30 GM Tube TOP SCH ×2 (09:50→20:17)
[2023-06-23] MEDS: Sodium Chloride 1 GM Tab PO SCH ×2 (09:50→20:15)
[2023-06-23] MEDS: Carboxymethylcellulose Sodium 1% Ophth Gel 15 ML Bottle EYEBOTH SCH ×3 (09:50→20:17)
[2023-06-23] MEDS: levETIRAcetam 500 MG Tab PO SCH ×2 (09:51→20:15)
[2023-06-23] MEDS: Lacosamide 100 MG Tab PO SCH ×2 (09:51→20:15)
[2023-06-23] MEDS: Metoprolol Tartrate 25 MG Tab PO SCH ×2 (09:52→20:15)
[2023-06-23] MEDS: Folic Acid 1 MG Tab PO SCH (09:52)
[2023-06-23] MEDS: Thiamine 100 MG Tab PO SCH (09:52)
[2023-06-23] MEDS: atorvaSTATin 40 MG Tab PO SCH (09:52)
[2023-06-23] MEDS: Simethicone 80 MG Tab.Chew PO SCH ×2 (09:52→20:15)
[2023-06-23] MEDS: Enoxaparin 40 MG/0.4 ML Syringe SUBCUT SCH (15:59)
[2023-06-23] MEDS: QUEtiapine 100 MG Tab PO SCH (20:15)
[2023-06-23] MEDS: Benztropine 1 MG Tab PO SCH (20:15)
[2023-06-24] MEDS: Lidocaine 4% 1 each Patch TOP PRN (09:00)
[2023-06-24] MEDS: Carboxymethylcellulose Sodium 1% Ophth Gel 15 ML Bottle EYEBOTH SCH ×3 (09:01→20:27)
[2023-06-24] MEDS: oxyCODONE 5 MG Tab PO SCH (09:01)
[2023-06-24] MEDS: Sodium Chloride 1 GM Tab PO SCH ×2 (09:01→20:27)
[2023-06-24] MEDS: Clotrimazole 1% Crm 30 GM Tube TOP SCH ×2 (09:01→20:28)
[2023-06-24] MEDS: atorvaSTATin 40 MG Tab PO SCH (09:02)
[2023-06-24] MEDS: Thiamine 100 MG Tab PO SCH (09:02)
[2023-06-24] MEDS: Lacosamide 100 MG Tab PO SCH ×2 (09:02→20:27)
[2023-06-24] MEDS: Folic Acid 1 MG Tab PO SCH (09:02)
[2023-06-24] MEDS: Divalproex Sodium Delayed-Release 500 MG Tab.CR PO SCH ×2 (09:02→20:27)
[2023-06-24] MEDS: Simethicone 80 MG Tab.Chew PO SCH ×2 (09:02→20:27)
[2023-06-24] MEDS: hydrOXYzine HCl 25 MG Tab PO SCH ×2 (09:03→20:27)
[2023-06-24] MEDS: Venlafaxine 75 MG Cap.ER PO SCH (09:03)
[2023-06-24] MEDS: Sennosides 8.6 MG Tab PO SCH (09:03)
[2023-06-24] MEDS: Metoprolol Tartrate 25 MG Tab PO SCH ×2 (09:03→20:28)
[2023-06-24] MEDS: levETIRAcetam 500 MG Tab PO SCH ×2 (09:03→20:27)
[2023-06-24] MEDS: Cholecalciferol (Vitamin D3) 25 MCG Tab PO SCH (09:03)
[2023-06-24] MEDS: Enoxaparin 40 MG/0.4 ML Syringe SUBCUT SCH (15:13)
[2023-06-24] MEDS: QUEtiapine 100 MG Tab PO SCH (20:27)
[2023-06-24] MEDS: Benztropine 1 MG Tab PO SCH (20:27)
[2023-06-25] MEDS: Folic Acid 1 MG Tab PO SCH (08:55)
[2023-06-25] MEDS: Metoprolol Tartrate 25 MG Tab PO SCH ×2 (08:55→20:02)
[2023-06-25] MEDS: Thiamine 100 MG Tab PO SCH (08:55)
[2023-06-25] MEDS: Lacosamide 100 MG Tab PO SCH ×2 (08:56→20:01)
[2023-06-25] MEDS: Cholecalciferol (Vitamin D3) 25 MCG Tab PO SCH (08:56)
[2023-06-25] MEDS: Simethicone 80 MG Tab.Chew PO SCH ×2 (08:56→20:01)
[2023-06-25] MEDS: levETIRAcetam 500 MG Tab PO SCH ×2 (08:56→20:01)
[2023-06-25] MEDS: Venlafaxine 75 MG Cap.ER PO SCH (08:56)
[2023-06-25] MEDS: Divalproex Sodium Delayed-Release 500 MG Tab.CR PO SCH ×2 (08:56→20:00)
[2023-06-25] MEDS: Sodium Chloride 1 GM Tab PO SCH ×2 (08:56→20:01)
[2023-06-25] MEDS: Sennosides 8.6 MG Tab PO SCH (08:56)
[2023-06-25] MEDS: hydrOXYzine HCl 25 MG Tab PO SCH ×2 (08:57→20:01)
[2023-06-25] MEDS: Carboxymethylcellulose Sodium 1% Ophth Gel 15 ML Bottle EYEBOTH SCH ×3 (08:57→20:03)
[2023-06-25] MEDS: Clotrimazole 1% Crm 30 GM Tube TOP SCH ×2 (08:57→20:03)
[2023-06-25] MEDS: atorvaSTATin 40 MG Tab PO SCH (08:57)
[2023-06-25] MEDS: oxyCODONE 5 MG Tab PO SCH (08:57)
[2023-06-25] MEDS: Enoxaparin 40 MG/0.4 ML Syringe SUBCUT SCH (15:30)
[2023-06-25] MEDS: QUEtiapine 100 MG Tab PO SCH (20:00)
[2023-06-25] MEDS: Benztropine 1 MG Tab PO SCH (20:01)
[2023-06-26] MEDS: Divalproex Sodium Delayed-Release 500 MG Tab.CR PO SCH ×2 (08:56→20:55)
[2023-06-26] MEDS: Sennosides 8.6 MG Tab PO SCH (08:56)
[2023-06-26] MEDS: Venlafaxine 75 MG Cap.ER PO SCH (08:56)
[2023-06-26] MEDS: hydrOXYzine HCl 25 MG Tab PO SCH ×2 (08:56→20:56)
[2023-06-26] MEDS: Simethicone 80 MG Tab.Chew PO SCH ×2 (08:56→20:55)
[2023-06-26] MEDS: levETIRAcetam 500 MG Tab PO SCH ×2 (08:56→20:56)
[2023-06-26] MEDS: Cholecalciferol (Vitamin D3) 25 MCG Tab PO SCH (08:57)
[2023-06-26] MEDS: Folic Acid 1 MG Tab PO SCH (08:57)
[2023-06-26] MEDS: Thiamine 100 MG Tab PO SCH (08:57)
[2023-06-26] MEDS: atorvaSTATin 40 MG Tab PO SCH (08:57)
[2023-06-26] MEDS: Lacosamide 100 MG Tab PO SCH ×2 (08:58→20:55)
[2023-06-26] MEDS: Metoprolol Tartrate 25 MG Tab PO SCH ×2 (08:58→20:55)
[2023-06-26] MEDS: oxyCODONE 5 MG Tab PO SCH (08:58)
[2023-06-26] MEDS: Sodium Chloride 1 GM Tab PO SCH ×2 (08:58→20:56)
[2023-06-26] MEDS: Carboxymethylcellulose Sodium 1% Ophth Gel 15 ML Bottle EYEBOTH SCH ×3 (08:59→20:56)
[2023-06-26] MEDS: Clotrimazole 1% Crm 30 GM Tube TOP SCH ×2 (08:59→20:56)
[2023-06-26] MEDS: Enoxaparin 40 MG/0.4 ML Syringe SUBCUT SCH (16:03)
[2023-06-26] MEDS: QUEtiapine 100 MG Tab PO SCH (20:54)
[2023-06-26] MEDS: Benztropine 1 MG Tab PO SCH (20:55)
[2023-06-27] MEDS: Carboxymethylcellulose Sodium 1% Ophth Gel 15 ML Bottle EYEBOTH SCH ×3 (08:50→20:54)
[2023-06-27] MEDS: Clotrimazole 1% Crm 30 GM Tube TOP SCH ×2 (08:50→20:53)
[2023-06-27] MEDS: Venlafaxine 75 MG Cap.ER PO SCH (08:51)
[2023-06-27] MEDS: Sodium Chloride 1 GM Tab PO SCH ×2 (08:51→20:54)
[2023-06-27] MEDS: Lidocaine 4% 1 each Patch TOP PRN (08:51)
[2023-06-27] MEDS: atorvaSTATin 40 MG Tab PO SCH (08:51)
[2023-06-27] MEDS: Metoprolol Tartrate 25 MG Tab PO SCH ×2 (08:52→20:51)
[2023-06-27] MEDS: hydrOXYzine HCl 25 MG Tab PO SCH ×2 (08:52→20:50)
[2023-06-27] MEDS: Divalproex Sodium Delayed-Release 500 MG Tab.CR PO SCH ×2 (08:52→20:49)
[2023-06-27] MEDS: Sennosides 8.6 MG Tab PO SCH (08:52)
[2023-06-27] MEDS: Simethicone 80 MG Tab.Chew PO SCH ×2 (08:52→20:53)
[2023-06-27] MEDS: levETIRAcetam 500 MG Tab PO SCH ×2 (08:52→20:53)
[2023-06-27] MEDS: oxyCODONE 5 MG Tab PO SCH (08:53)
[2023-06-27] MEDS: Acetaminophen 325 MG Tab PO PRN (08:53)
[2023-06-27] MEDS: Cholecalciferol (Vitamin D3) 25 MCG Tab PO SCH (08:53)
[2023-06-27] MEDS: Thiamine 100 MG Tab PO SCH (08:53)
[2023-06-27] MEDS: Folic Acid 1 MG Tab PO SCH (08:53)
[2023-06-27] MEDS: Lacosamide 100 MG Tab PO SCH ×2 (08:53→20:49)
[2023-06-27] MEDS: Enoxaparin 40 MG/0.4 ML Syringe SUBCUT SCH (16:08)
[2023-06-27] MEDS: QUEtiapine 100 MG Tab PO SCH (20:50)
[2023-06-27] MEDS: Benztropine 1 MG Tab PO SCH (20:51)
[2023-06-28] MEDS: Lidocaine 4% 1 each Patch TOP PRN (08:18)
[2023-06-28] MEDS: atorvaSTATin 40 MG Tab PO SCH (08:19)
[2023-06-28] MEDS: Sodium Chloride 1 GM Tab PO SCH ×2 (08:19→20:39)
[2023-06-28] MEDS: Venlafaxine 75 MG Cap.ER PO SCH (08:19)
[2023-06-28] MEDS: Simethicone 80 MG Tab.Chew PO SCH ×2 (08:19→20:38)
[2023-06-28] MEDS: levETIRAcetam 500 MG Tab PO SCH ×2 (08:19→20:36)
[2023-06-28] MEDS: Thiamine 100 MG Tab PO SCH (08:19)
[2023-06-28] MEDS: oxyCODONE 5 MG Tab PO SCH (08:20)
[2023-06-28] MEDS: Cholecalciferol (Vitamin D3) 25 MCG Tab PO SCH (08:20)
[2023-06-28] MEDS: Sennosides 8.6 MG Tab PO SCH (08:20)
[2023-06-28] MEDS: Divalproex Sodium Delayed-Release 500 MG Tab.CR PO SCH ×2 (08:20→20:39)
[2023-06-28] MEDS: Metoprolol Tartrate 25 MG Tab PO SCH ×2 (08:20→20:38)
[2023-06-28] MEDS: hydrOXYzine HCl 25 MG Tab PO SCH ×2 (08:20→20:38)
[2023-06-28] MEDS: Lacosamide 100 MG Tab PO SCH ×2 (08:21→20:38)
[2023-06-28] MEDS: Folic Acid 1 MG Tab PO SCH (08:21)
[2023-06-28] MEDS: Clotrimazole 1% Crm 30 GM Tube TOP SCH ×2 (08:28→20:40)
[2023-06-28] MEDS: Carboxymethylcellulose Sodium 1% Ophth Gel 15 ML Bottle EYEBOTH SCH ×3 (08:28→20:40)
[2023-06-28] MEDS: Enoxaparin 40 MG/0.4 ML Syringe SUBCUT SCH (14:10)
[2023-06-28] MEDS: QUEtiapine 100 MG Tab PO SCH (20:37)
[2023-06-28] MEDS: Benztropine 1 MG Tab PO SCH (20:38)
[2023-06-29] MEDS: Cholecalciferol (Vitamin D3) 25 MCG Tab PO SCH (08:44)
[2023-06-29] MEDS: Simethicone 80 MG Tab.Chew PO SCH ×2 (08:45→21:00)
[2023-06-29] MEDS: Sennosides 8.6 MG Tab PO SCH (08:45)
[2023-06-29] MEDS: atorvaSTATin 40 MG Tab PO SCH (08:45)
[2023-06-29] MEDS: Folic Acid 1 MG Tab PO SCH (08:46)
[2023-06-29] MEDS: Metoprolol Tartrate 25 MG Tab PO SCH ×2 (08:46→21:00)
[2023-06-29] MEDS: Thiamine 100 MG Tab PO SCH (08:46)
[2023-06-29] MEDS: Lacosamide 100 MG Tab PO SCH ×2 (08:46→21:02)
[2023-06-29] MEDS: hydrOXYzine HCl 25 MG Tab PO SCH ×2 (08:46→21:02)
[2023-06-29] MEDS: levETIRAcetam 500 MG Tab PO SCH ×2 (08:46→21:00)
[2023-06-29] MEDS: Venlafaxine 75 MG Cap.ER PO SCH (08:47)
[2023-06-29] MEDS: Divalproex Sodium Delayed-Release 500 MG Tab.CR PO SCH ×2 (08:47→21:01)
[2023-06-29] MEDS: oxyCODONE 5 MG Tab PO SCH (08:47)
[2023-06-29] MEDS: Sodium Chloride 1 GM Tab PO SCH ×2 (08:47→20:59)
[2023-06-29] MEDS: Clotrimazole 1% Crm 30 GM Tube TOP SCH ×2 (08:53→21:02)
[2023-06-29] MEDS: Carboxymethylcellulose Sodium 1% Ophth Gel 15 ML Bottle EYEBOTH SCH ×3 (08:53→21:03)
[2023-06-29] MEDS: Enoxaparin 40 MG/0.4 ML Syringe SUBCUT SCH (14:34)
[2023-06-29] MEDS: QUEtiapine 100 MG Tab PO SCH (20:59)
[2023-06-29] MEDS: Benztropine 1 MG Tab PO SCH (21:02)
[2023-06-30] MEDS: Lidocaine 4% 1 each Patch TOP PRN (10:32)
[2023-06-30] MEDS: Cholecalciferol (Vitamin D3) 25 MCG Tab PO SCH (10:33)
[2023-06-30] MEDS: levETIRAcetam 500 MG Tab PO SCH ×2 (10:33→20:20)
[2023-06-30] MEDS: Divalproex Sodium Delayed-Release 500 MG Tab.CR PO SCH ×2 (10:33→20:18)
[2023-06-30] MEDS: Sodium Chloride 1 GM Tab PO SCH ×2 (10:34→20:16)
[2023-06-30] MEDS: Lacosamide 100 MG Tab PO SCH ×2 (10:34→20:20)
[2023-06-30] MEDS: oxyCODONE 5 MG Tab PO SCH (10:34)
[2023-06-30] MEDS: hydrOXYzine HCl 25 MG Tab PO SCH ×2 (10:34→20:20)
[2023-06-30] MEDS: Venlafaxine 75 MG Cap.ER PO SCH (10:35)
[2023-06-30] MEDS: Sennosides 8.6 MG Tab PO SCH (10:35)
[2023-06-30] MEDS: Simethicone 80 MG Tab.Chew PO SCH ×2 (10:37→20:19)
[2023-06-30] MEDS: Folic Acid 1 MG Tab PO SCH (10:38)
[2023-06-30] MEDS: Metoprolol Tartrate 25 MG Tab PO SCH ×2 (10:38→20:20)
[2023-06-30] MEDS: Carboxymethylcellulose Sodium 1% Ophth Gel 15 ML Bottle EYEBOTH SCH ×3 (10:41→20:15)
[2023-06-30] MEDS: Clotrimazole 1% Crm 30 GM Tube TOP SCH ×2 (10:41→20:16)
[2023-06-30] MEDS: atorvaSTATin 40 MG Tab PO SCH (10:42)
[2023-06-30] MEDS: Thiamine 100 MG Tab PO SCH (10:42)
[2023-06-30] MEDS: Enoxaparin 40 MG/0.4 ML Syringe SUBCUT SCH (15:13)
[2023-06-30] MEDS: QUEtiapine 100 MG Tab PO SCH (20:17)
[2023-06-30] MEDS: Benztropine 1 MG Tab PO SCH (20:20)
[2023-07-01] MEDS: atorvaSTATin 40 MG Tab PO SCH (08:20)
[2023-07-01] MEDS: Folic Acid 1 MG Tab PO SCH (08:20)
[2023-07-01] MEDS: Divalproex Sodium Delayed-Release 500 MG Tab.CR PO SCH ×2 (08:20→20:13)
[2023-07-01] MEDS: hydrOXYzine HCl 25 MG Tab PO SCH ×2 (08:20→20:13)
[2023-07-01] MEDS: Venlafaxine 75 MG Cap.ER PO SCH (08:20)
[2023-07-01] MEDS: Metoprolol Tartrate 25 MG Tab PO SCH ×2 (08:20→20:14)
[2023-07-01] MEDS: levETIRAcetam 500 MG Tab PO SCH ×2 (08:20→20:14)
[2023-07-01] MEDS: Thiamine 100 MG Tab PO SCH (08:21)
[2023-07-01] MEDS: Clotrimazole 1% Crm 30 GM Tube TOP SCH ×2 (08:21→20:18)
[2023-07-01] MEDS: Carboxymethylcellulose Sodium 1% Ophth Gel 15 ML Bottle EYEBOTH SCH ×3 (08:21→20:18)
[2023-07-01] MEDS: Sodium Chloride 1 GM Tab PO SCH ×2 (08:21→20:15)
[2023-07-01] MEDS: Sennosides 8.6 MG Tab PO SCH (08:21)
[2023-07-01] MEDS: Simethicone 80 MG Tab.Chew PO SCH ×2 (08:21→20:13)
[2023-07-01] MEDS: Cholecalciferol (Vitamin D3) 25 MCG Tab PO SCH (08:21)
[2023-07-01] MEDS: Lacosamide 100 MG Tab PO SCH ×2 (08:21→20:13)
[2023-07-01] MEDS: oxyCODONE 5 MG Tab PO SCH (08:21)
[2023-07-01] MEDS: Enoxaparin 40 MG/0.4 ML Syringe SUBCUT SCH (15:37)
[2023-07-01] MEDS: QUEtiapine 100 MG Tab PO SCH (20:13)
[2023-07-01] MEDS: Benztropine 1 MG Tab PO SCH (20:13)
[2023-07-02] MEDS: Clotrimazole 1% Crm 30 GM Tube TOP SCH ×2 (08:25→20:04)
[2023-07-02] MEDS: Divalproex Sodium Delayed-Release 500 MG Tab.CR PO SCH ×2 (08:26→20:02)
[2023-07-02] MEDS: Cholecalciferol (Vitamin D3) 25 MCG Tab PO SCH (08:26)
[2023-07-02] MEDS: Sennosides 8.6 MG Tab PO SCH (08:26)
[2023-07-02] MEDS: Carboxymethylcellulose Sodium 1% Ophth Gel 15 ML Bottle EYEBOTH SCH ×3 (08:26→20:05)
[2023-07-02] MEDS: Venlafaxine 75 MG Cap.ER PO SCH (08:27)
[2023-07-02] MEDS: Acetaminophen 325 MG Tab PO PRN (08:27)
[2023-07-02] MEDS: oxyCODONE 5 MG Tab PO SCH (08:28)
[2023-07-02] MEDS: hydrOXYzine HCl 25 MG Tab PO SCH ×2 (08:28→20:03)
[2023-07-02] MEDS: Metoprolol Tartrate 25 MG Tab PO SCH ×2 (08:28→20:00)
[2023-07-02] MEDS: Thiamine 100 MG Tab PO SCH (08:28)
[2023-07-02] MEDS: Simethicone 80 MG Tab.Chew PO SCH ×2 (08:28→19:59)
[2023-07-02] MEDS: Lacosamide 100 MG Tab PO SCH ×2 (08:28→20:02)
[2023-07-02] MEDS: levETIRAcetam 500 MG Tab PO SCH ×2 (08:28→20:02)
[2023-07-02] MEDS: atorvaSTATin 40 MG Tab PO SCH (08:29)
[2023-07-02] MEDS: Lidocaine 4% 1 each Patch TOP PRN (08:29)
[2023-07-02] MEDS: Sodium Chloride 1 GM Tab PO SCH ×2 (08:29→20:01)
[2023-07-02] MEDS: Folic Acid 1 MG Tab PO SCH (08:29)
[2023-07-02 14:06] LABS: TSH 2.22 uIU/mL (0.358-3.74); VITAMIN D,25-HYDROXY 40.1 ng/ml (30.0-100.0)
[2023-07-02 14:23] LABS: FOLIC ACID 39.8 ng/mL (8.6-58.9)
[2023-07-02] MEDS: Enoxaparin 40 MG/0.4 ML Syringe SUBCUT SCH (15:13)
[2023-07-02] MEDS: Benztropine 1 MG Tab PO SCH (20:00)
[2023-07-02] MEDS: QUEtiapine 25 MG Tab PO SCH (20:00)
[2023-07-02] MEDS: QUEtiapine 100 MG Tab PO SCH (20:01)
[2023-07-03] MEDS: Folic Acid 1 MG Tab PO SCH (08:42)
[2023-07-03] MEDS: Divalproex Sodium Delayed-Release 500 MG Tab.CR PO SCH ×2 (08:42→20:15)
[2023-07-03] MEDS: Simethicone 80 MG Tab.Chew PO SCH ×2 (08:43→20:15)
[2023-07-03] MEDS: Metoprolol Tartrate 25 MG Tab PO SCH ×2 (08:43→20:14)
[2023-07-03] MEDS: Cholecalciferol (Vitamin D3) 25 MCG Tab PO SCH (08:47)
[2023-07-03] MEDS: hydrOXYzine HCl 25 MG Tab PO SCH ×2 (08:47→20:16)
[2023-07-03] MEDS: Venlafaxine 75 MG Cap.ER PO SCH (08:47)
[2023-07-03] MEDS: Venlafaxine 37.5 MG Cap.ER PO SCH (08:47)
[2023-07-03] MEDS: Thiamine 100 MG Tab PO SCH (08:47)
[2023-07-03] MEDS: atorvaSTATin 40 MG Tab PO SCH (08:47)
[2023-07-03] MEDS: Sennosides 8.6 MG Tab PO SCH (08:47)
[2023-07-03] MEDS: levETIRAcetam 500 MG Tab PO SCH ×2 (08:48→20:14)
[2023-07-03] MEDS: Lacosamide 100 MG Tab PO SCH ×2 (08:48→20:16)
[2023-07-03] MEDS: Lidocaine 4% 1 each Patch TOP PRN (08:49)
[2023-07-03] MEDS: Sodium Chloride 1 GM Tab PO SCH ×2 (08:49→20:16)
[2023-07-03] MEDS: oxyCODONE 5 MG Tab PO SCH (08:49)
[2023-07-03] MEDS: Carboxymethylcellulose Sodium 1% Ophth Gel 15 ML Bottle EYEBOTH SCH ×3 (08:49→20:17)
[2023-07-03] MEDS: Clotrimazole 1% Crm 30 GM Tube TOP SCH ×2 (08:50→20:17)
[2023-07-03] MEDS ORDERED: Venlafaxine 75 MG Cap.ER PO SCH (09:00)
[2023-07-03] MEDS: Enoxaparin 40 MG/0.4 ML Syringe SUBCUT SCH (14:47)
[2023-07-03] MEDS: QUEtiapine 25 MG Tab PO SCH (20:15)
[2023-07-03] MEDS: QUEtiapine 100 MG Tab PO SCH (20:15)
[2023-07-03] MEDS: Benztropine 1 MG Tab PO SCH (20:16)
[2023-07-04] MEDS: Metoprolol Tartrate 25 MG Tab PO SCH ×2 (09:00→21:20)
[2023-07-04] MEDS: Sennosides 8.6 MG Tab PO SCH (09:08)
[2023-07-04] MEDS: Folic Acid 1 MG Tab PO SCH (09:08)
[2023-07-04] MEDS: Simethicone 80 MG Tab.Chew PO SCH ×2 (09:08→21:18)
[2023-07-04] MEDS: Venlafaxine 75 MG Cap.ER PO SCH (09:08)
[2023-07-04] MEDS: Venlafaxine 37.5 MG Cap.ER PO SCH (09:09)
[2023-07-04] MEDS: levETIRAcetam 500 MG Tab PO SCH ×2 (09:09→21:17)
[2023-07-04] MEDS: oxyCODONE 5 MG Tab PO SCH (09:09)
[2023-07-04] MEDS: Lacosamide 100 MG Tab PO SCH ×2 (09:09→21:17)
[2023-07-04] MEDS: Divalproex Sodium Delayed-Release 500 MG Tab.CR PO SCH ×2 (09:09→21:17)
[2023-07-04] MEDS: Thiamine 100 MG Tab PO SCH (09:10)
[2023-07-04] MEDS: hydrOXYzine HCl 25 MG Tab PO SCH ×2 (09:10→21:18)
[2023-07-04] MEDS: Cholecalciferol (Vitamin D3) 25 MCG Tab PO SCH (09:10)
[2023-07-04] MEDS: Sodium Chloride 1 GM Tab PO SCH ×2 (09:10→21:18)
[2023-07-04] MEDS: atorvaSTATin 40 MG Tab PO SCH (09:10)
[2023-07-04] MEDS: Carboxymethylcellulose Sodium 1% Ophth Gel 15 ML Bottle EYEBOTH SCH ×3 (09:11→21:19)
[2023-07-04] MEDS: Clotrimazole 1% Crm 30 GM Tube TOP SCH ×2 (09:11→21:18)
[2023-07-04] MEDS: Enoxaparin 40 MG/0.4 ML Syringe SUBCUT SCH (14:00)
[2023-07-04] MEDS: Benztropine 1 MG Tab PO SCH (21:17)
[2023-07-04] MEDS: QUEtiapine 25 MG Tab PO SCH (21:18)
[2023-07-04] MEDS: QUEtiapine 100 MG Tab PO SCH (21:18)
[2023-07-04] MEDS: Acetaminophen 325 MG Tab PO PRN (21:22)
[2023-07-05] MEDS: oxyCODONE 5 MG Tab PO SCH (08:59)
[2023-07-05] MEDS: Folic Acid 1 MG Tab PO SCH (08:59)
[2023-07-05] MEDS: hydrOXYzine HCl 25 MG Tab PO SCH ×2 (08:59→20:38)
[2023-07-05] MEDS: Metoprolol Tartrate 25 MG Tab PO SCH ×2 (08:59→20:38)
[2023-07-05] MEDS: levETIRAcetam 500 MG Tab PO SCH ×2 (08:59→20:40)
[2023-07-05] MEDS: Sennosides 8.6 MG Tab PO SCH (09:00)
[2023-07-05] MEDS: Cholecalciferol (Vitamin D3) 25 MCG Tab PO SCH (09:00)
[2023-07-05] MEDS: Divalproex Sodium Delayed-Release 500 MG Tab.CR PO SCH ×2 (09:00→20:40)
[2023-07-05] MEDS: Thiamine 100 MG Tab PO SCH (09:00)
[2023-07-05] MEDS: Sodium Chloride 1 GM Tab PO SCH ×2 (09:00→20:39)
[2023-07-05] MEDS: Venlafaxine 37.5 MG Cap.ER PO SCH (09:00)
[2023-07-05] MEDS: atorvaSTATin 40 MG Tab PO SCH (09:00)
[2023-07-05] MEDS: Simethicone 80 MG Tab.Chew PO SCH ×2 (09:00→20:41)
[2023-07-05] MEDS: Venlafaxine 75 MG Cap.ER PO SCH (09:00)
[2023-07-05] MEDS: Lacosamide 100 MG Tab PO SCH ×2 (09:00→20:42)
[2023-07-05] MEDS: Carboxymethylcellulose Sodium 1% Ophth Gel 15 ML Bottle EYEBOTH SCH ×3 (09:08→20:42)
[2023-07-05] MEDS: Clotrimazole 1% Crm 30 GM Tube TOP SCH ×2 (09:09→20:42)
[2023-07-05] MEDS: Enoxaparin 40 MG/0.4 ML Syringe SUBCUT SCH (16:46)
[2023-07-05] MEDS: QUEtiapine 100 MG Tab PO SCH (20:40)
[2023-07-05] MEDS: QUEtiapine 25 MG Tab PO SCH (20:41)
[2023-07-05] MEDS: Benztropine 1 MG Tab PO SCH (20:41)
[2023-07-06] MEDS: Folic Acid 1 MG Tab PO SCH (08:33)
[2023-07-06] MEDS: Sennosides 8.6 MG Tab PO SCH (08:33)
[2023-07-06] MEDS: Divalproex Sodium Delayed-Release 500 MG Tab.CR PO SCH ×2 (08:33→20:44)
[2023-07-06] MEDS: Simethicone 80 MG Tab.Chew PO SCH ×2 (08:33→20:46)
[2023-07-06] MEDS: Thiamine 100 MG Tab PO SCH (08:34)
[2023-07-06] MEDS: Venlafaxine 75 MG Cap.ER PO SCH (08:34)
[2023-07-06] MEDS: Metoprolol Tartrate 25 MG Tab PO SCH ×2 (08:34→20:44)
[2023-07-06] MEDS: hydrOXYzine HCl 25 MG Tab PO SCH ×2 (08:34→20:44)
[2023-07-06] MEDS: Lacosamide 100 MG Tab PO SCH ×2 (08:34→20:44)
[2023-07-06] MEDS: Sodium Chloride 1 GM Tab PO SCH ×2 (08:34→20:44)
[2023-07-06] MEDS: levETIRAcetam 500 MG Tab PO SCH ×2 (08:34→20:46)
[2023-07-06] MEDS: atorvaSTATin 40 MG Tab PO SCH (08:34)
[2023-07-06] MEDS: Cholecalciferol (Vitamin D3) 25 MCG Tab PO SCH (08:34)
[2023-07-06] MEDS: oxyCODONE 5 MG Tab PO SCH (08:35)
[2023-07-06] MEDS: Venlafaxine 37.5 MG Cap.ER PO SCH (08:35)
[2023-07-06] MEDS: Carboxymethylcellulose Sodium 1% Ophth Gel 15 ML Bottle EYEBOTH SCH ×3 (08:36→20:47)
[2023-07-06] MEDS: Clotrimazole 1% Crm 30 GM Tube TOP SCH ×2 (08:36→20:47)
[2023-07-06] MEDS: Enoxaparin 40 MG/0.4 ML Syringe SUBCUT SCH (14:55)
[2023-07-06] MEDS: QUEtiapine 100 MG Tab PO SCH (20:45)
[2023-07-06] MEDS: QUEtiapine 25 MG Tab PO SCH (20:46)
[2023-07-06] MEDS: Benztropine 1 MG Tab PO SCH (20:47)
[2023-07-07] MEDS: Sennosides 8.6 MG Tab PO SCH (09:33)
[2023-07-07] MEDS: Sodium Chloride 1 GM Tab PO SCH ×2 (09:33→20:43)
[2023-07-07] MEDS: Lacosamide 100 MG Tab PO SCH ×2 (09:33→20:41)
[2023-07-07] MEDS: hydrOXYzine HCl 25 MG Tab PO SCH ×2 (09:33→20:41)
[2023-07-07] MEDS: Metoprolol Tartrate 25 MG Tab PO SCH ×2 (09:33→20:43)
[2023-07-07] MEDS: Venlafaxine 37.5 MG Cap.ER PO SCH (09:33)
[2023-07-07] MEDS: Thiamine 100 MG Tab PO SCH (09:33)
[2023-07-07] MEDS: Cholecalciferol (Vitamin D3) 25 MCG Tab PO SCH (09:33)
[2023-07-07] MEDS: Venlafaxine 75 MG Cap.ER PO SCH (09:33)
[2023-07-07] MEDS: oxyCODONE 5 MG Tab PO SCH (09:34)
[2023-07-07] MEDS: Simethicone 80 MG Tab.Chew PO SCH ×2 (09:34→20:42)
[2023-07-07] MEDS: Divalproex Sodium Delayed-Release 500 MG Tab.CR PO SCH ×2 (09:34→20:43)
[2023-07-07] MEDS: levETIRAcetam 500 MG Tab PO SCH ×2 (09:34→20:42)
[2023-07-07] MEDS: Folic Acid 1 MG Tab PO SCH (09:34)
[2023-07-07] MEDS: Clotrimazole 1% Crm 30 GM Tube TOP SCH ×2 (09:44→20:44)
[2023-07-07] MEDS: Carboxymethylcellulose Sodium 1% Ophth Gel 15 ML Bottle EYEBOTH SCH ×3 (09:44→20:44)
[2023-07-07] MEDS: atorvaSTATin 40 MG Tab PO SCH (10:04)
[2023-07-07] MEDS: Enoxaparin 40 MG/0.4 ML Syringe SUBCUT SCH (15:35)
[2023-07-07] MEDS: Benztropine 1 MG Tab PO SCH (20:41)
[2023-07-07] MEDS: QUEtiapine 25 MG Tab PO SCH (20:42)
[2023-07-07] MEDS: QUEtiapine 100 MG Tab PO SCH (20:43)
[2023-07-08] MEDS: Clotrimazole 1% Crm 30 GM Tube TOP SCH ×2 (09:14→20:10)
[2023-07-08] MEDS: Carboxymethylcellulose Sodium 1% Ophth Gel 15 ML Bottle EYEBOTH SCH ×3 (09:14→20:10)
[2023-07-08] MEDS: hydrOXYzine HCl 25 MG Tab PO SCH ×2 (09:14→20:08)
[2023-07-08] MEDS: levETIRAcetam 500 MG Tab PO SCH ×2 (09:14→20:07)
[2023-07-08] MEDS: Sennosides 8.6 MG Tab PO SCH (09:14)
[2023-07-08] MEDS: Lacosamide 100 MG Tab PO SCH ×2 (09:14→20:08)
[2023-07-08] MEDS: Thiamine 100 MG Tab PO SCH (09:15)
[2023-07-08] MEDS: Divalproex Sodium Delayed-Release 500 MG Tab.CR PO SCH ×2 (09:15→20:06)
[2023-07-08] MEDS: Venlafaxine 75 MG Cap.ER PO SCH (09:15)
[2023-07-08] MEDS: oxyCODONE 5 MG Tab PO SCH (09:15)
[2023-07-08] MEDS: atorvaSTATin 40 MG Tab PO SCH (09:15)
[2023-07-08] MEDS: Simethicone 80 MG Tab.Chew PO SCH ×2 (09:15→20:07)
[2023-07-08] MEDS: Sodium Chloride 1 GM Tab PO SCH ×2 (09:15→20:07)
[2023-07-08] MEDS: Metoprolol Tartrate 25 MG Tab PO SCH ×2 (09:15→20:08)
[2023-07-08] MEDS: Venlafaxine 37.5 MG Cap.ER PO SCH (09:16)
[2023-07-08] MEDS: Cholecalciferol (Vitamin D3) 25 MCG Tab PO SCH (09:16)
[2023-07-08] MEDS: Folic Acid 1 MG Tab PO SCH (09:16)
[2023-07-08] MEDS: Enoxaparin 40 MG/0.4 ML Syringe SUBCUT SCH (14:56)
[2023-07-08] MEDS: QUEtiapine 100 MG Tab PO SCH (20:06)
[2023-07-08] MEDS: QUEtiapine 25 MG Tab PO SCH (20:08)
[2023-07-08] MEDS: Benztropine 1 MG Tab PO SCH (20:09)
[2023-07-09] MEDS: Venlafaxine 75 MG Cap.ER PO SCH (09:25)
[2023-07-09] MEDS: levETIRAcetam 500 MG Tab PO SCH ×2 (09:26→20:10)
[2023-07-09] MEDS: Simethicone 80 MG Tab.Chew PO SCH ×2 (09:26→20:10)
[2023-07-09] MEDS: hydrOXYzine HCl 25 MG Tab PO SCH ×2 (09:26→20:10)
[2023-07-09] MEDS: Sennosides 8.6 MG Tab PO SCH (09:26)
[2023-07-09] MEDS: Cholecalciferol (Vitamin D3) 25 MCG Tab PO SCH (09:26)
[2023-07-09] MEDS: Metoprolol Tartrate 25 MG Tab PO SCH ×2 (09:26→20:10)
[2023-07-09] MEDS: atorvaSTATin 40 MG Tab PO SCH (09:26)
[2023-07-09] MEDS: Divalproex Sodium Delayed-Release 500 MG Tab.CR PO SCH ×2 (09:26→20:10)
[2023-07-09] MEDS: Sodium Chloride 1 GM Tab PO SCH ×2 (09:27→20:11)
[2023-07-09] MEDS: Thiamine 100 MG Tab PO SCH (09:27)
[2023-07-09] MEDS: Lacosamide 100 MG Tab PO SCH ×2 (09:27→20:10)
[2023-07-09] MEDS: Folic Acid 1 MG Tab PO SCH (09:27)
[2023-07-09] MEDS: Lidocaine 4% 1 each Patch TOP PRN (09:27)
[2023-07-09] MEDS: oxyCODONE 5 MG Tab PO SCH (09:27)
[2023-07-09] MEDS: Carboxymethylcellulose Sodium 1% Ophth Gel 15 ML Bottle EYEBOTH SCH ×3 (09:28→20:16)
[2023-07-09] MEDS: Venlafaxine 37.5 MG Cap.ER PO SCH (09:28)
[2023-07-09] MEDS: Clotrimazole 1% Crm 30 GM Tube TOP SCH ×2 (09:28→20:16)
[2023-07-09] MEDS: Enoxaparin 40 MG/0.4 ML Syringe SUBCUT SCH (15:04)
[2023-07-09] MEDS: QUEtiapine 100 MG Tab PO SCH (20:09)
[2023-07-09] MEDS: Benztropine 1 MG Tab PO SCH (20:11)
[2023-07-09] MEDS: QUEtiapine 25 MG Tab PO SCH (20:16)
[2023-07-10] MEDS: Metoprolol Tartrate 25 MG Tab PO SCH ×2 (10:27→21:23)
[2023-07-10] MEDS: atorvaSTATin 40 MG Tab PO SCH (10:27)
[2023-07-10] MEDS: hydrOXYzine HCl 25 MG Tab PO SCH ×2 (10:27→21:22)
[2023-07-10] MEDS: levETIRAcetam 500 MG Tab PO SCH ×2 (10:28→21:21)
[2023-07-10] MEDS: Venlafaxine 75 MG Cap.ER PO SCH (10:28)
[2023-07-10] MEDS: Simethicone 80 MG Tab.Chew PO SCH ×2 (10:28→21:20)
[2023-07-10] MEDS: oxyCODONE 5 MG Tab PO SCH (10:28)
[2023-07-10] MEDS: Cholecalciferol (Vitamin D3) 25 MCG Tab PO SCH (10:28)
[2023-07-10] MEDS: Thiamine 100 MG Tab PO SCH (10:28)
[2023-07-10] MEDS: Divalproex Sodium Delayed-Release 500 MG Tab.CR PO SCH ×2 (10:29→21:21)
[2023-07-10] MEDS: Venlafaxine 37.5 MG Cap.ER PO SCH (10:29)
[2023-07-10] MEDS: Lacosamide 100 MG Tab PO SCH ×2 (10:29→21:22)
[2023-07-10] MEDS: Sennosides 8.6 MG Tab PO SCH (10:29)
[2023-07-10] MEDS: Sodium Chloride 1 GM Tab PO SCH ×2 (10:29→21:21)
[2023-07-10] MEDS: Clotrimazole 1% Crm 30 GM Tube TOP SCH ×2 (10:29→21:23)
[2023-07-10] MEDS: Folic Acid 1 MG Tab PO SCH (10:29)
[2023-07-10] MEDS: Lidocaine 4% 1 each Patch TOP PRN (10:30)
[2023-07-10] MEDS: Carboxymethylcellulose Sodium 1% Ophth Gel 15 ML Bottle EYEBOTH SCH ×3 (10:30→21:23)
[2023-07-10] MEDS: Enoxaparin 40 MG/0.4 ML Syringe SUBCUT SCH (14:24)
[2023-07-10] MEDS: QUEtiapine 25 MG Tab PO SCH (21:22)
[2023-07-10] MEDS: Benztropine 1 MG Tab PO SCH (21:22)
[2023-07-10] MEDS: QUEtiapine 100 MG Tab PO SCH (21:22)
[2023-07-11] MEDS: Sennosides 8.6 MG Tab PO SCH (10:05)
[2023-07-11] MEDS: levETIRAcetam 500 MG Tab PO SCH ×2 (10:05→21:15)
[2023-07-11] MEDS: Divalproex Sodium Delayed-Release 500 MG Tab.CR PO SCH ×2 (10:05→21:15)
[2023-07-11] MEDS: Venlafaxine 37.5 MG Cap.ER PO SCH (10:06)
[2023-07-11] MEDS: oxyCODONE 5 MG Tab PO SCH (10:06)
[2023-07-11] MEDS: Venlafaxine 75 MG Cap.ER PO SCH (10:06)
[2023-07-11] MEDS: Sodium Chloride 1 GM Tab PO SCH ×2 (10:06→21:15)
[2023-07-11] MEDS: Simethicone 80 MG Tab.Chew PO SCH ×2 (10:07→21:14)
[2023-07-11] MEDS: Lacosamide 100 MG Tab PO SCH ×2 (10:07→21:14)
[2023-07-11] MEDS: Cholecalciferol (Vitamin D3) 25 MCG Tab PO SCH (10:07)
[2023-07-11] MEDS: Thiamine 100 MG Tab PO SCH (10:07)
[2023-07-11] MEDS: atorvaSTATin 40 MG Tab PO SCH (10:07)
[2023-07-11] MEDS: Folic Acid 1 MG Tab PO SCH (10:07)
[2023-07-11] MEDS: Metoprolol Tartrate 25 MG Tab PO SCH ×2 (10:08→21:14)
[2023-07-11] MEDS: Clotrimazole 1% Crm 30 GM Tube TOP SCH ×2 (10:11→21:19)
[2023-07-11] MEDS: Carboxymethylcellulose Sodium 1% Ophth Gel 15 ML Bottle EYEBOTH SCH ×3 (10:11→21:19)
[2023-07-11] MEDS: hydrOXYzine HCl 25 MG Tab PO SCH ×2 (10:12→21:14)
[2023-07-11] MEDS: Acetaminophen 325 MG Tab PO PRN (12:57)
[2023-07-11] MEDS: Enoxaparin 40 MG/0.4 ML Syringe SUBCUT SCH (16:02)
[2023-07-11] MEDS: QUEtiapine 25 MG Tab PO SCH (21:14)
[2023-07-11] MEDS: Benztropine 1 MG Tab PO SCH (21:15)
[2023-07-11] MEDS: QUEtiapine 100 MG Tab PO SCH (21:16)
[2023-07-12] MEDS: Venlafaxine 75 MG Cap.ER PO SCH (10:00)
[2023-07-12] MEDS: Metoprolol Tartrate 25 MG Tab PO SCH ×2 (10:00→21:29)
[2023-07-12] MEDS: Divalproex Sodium Delayed-Release 500 MG Tab.CR PO SCH ×2 (10:00→21:28)
[2023-07-12] MEDS: Folic Acid 1 MG Tab PO SCH (10:01)
[2023-07-12] MEDS: Cholecalciferol (Vitamin D3) 25 MCG Tab PO SCH (10:01)
[2023-07-12] MEDS: levETIRAcetam 500 MG Tab PO SCH ×2 (10:01→21:29)
[2023-07-12] MEDS: Sennosides 8.6 MG Tab PO SCH (10:01)
[2023-07-12] MEDS: hydrOXYzine HCl 25 MG Tab PO SCH ×2 (10:01→21:29)
[2023-07-12] MEDS: Simethicone 80 MG Tab.Chew PO SCH ×2 (10:01→21:29)
[2023-07-12] MEDS: Lacosamide 100 MG Tab PO SCH ×2 (10:02→21:29)
[2023-07-12] MEDS: Sodium Chloride 1 GM Tab PO SCH ×2 (10:02→21:29)
[2023-07-12] MEDS: atorvaSTATin 40 MG Tab PO SCH (10:02)
[2023-07-12] MEDS: Thiamine 100 MG Tab PO SCH (10:02)
[2023-07-12] MEDS: oxyCODONE 5 MG Tab PO SCH (10:02)
[2023-07-12] MEDS: Clotrimazole 1% Crm 30 GM Tube TOP SCH ×2 (10:03→21:32)
[2023-07-12] MEDS: Carboxymethylcellulose Sodium 1% Ophth Gel 15 ML Bottle EYEBOTH SCH ×3 (10:04→21:32)
[2023-07-12] MEDS: Venlafaxine 37.5 MG Cap.ER PO SCH (10:09)
[2023-07-12] MEDS: Enoxaparin 40 MG/0.4 ML Syringe SUBCUT SCH (16:47)
[2023-07-12] MEDS: Benztropine 1 MG Tab PO SCH (21:28)
[2023-07-12] MEDS: QUEtiapine 100 MG Tab PO SCH (21:28)
[2023-07-12] MEDS: QUEtiapine 25 MG Tab PO SCH (21:29)
[2023-07-13] MEDS: Thiamine 100 MG Tab PO SCH (10:21)
[2023-07-13] MEDS: Folic Acid 1 MG Tab PO SCH (10:21)
[2023-07-13] MEDS: levETIRAcetam 500 MG Tab PO SCH ×2 (10:21→20:43)
[2023-07-13] MEDS: Lacosamide 100 MG Tab PO SCH ×2 (10:21→20:42)
[2023-07-13] MEDS: Sodium Chloride 1 GM Tab PO SCH ×2 (10:22→20:41)
[2023-07-13] MEDS: Venlafaxine 75 MG Cap.ER PO SCH (10:22)
[2023-07-13] MEDS: atorvaSTATin 40 MG Tab PO SCH (10:22)
[2023-07-13] MEDS: Venlafaxine 37.5 MG Cap.ER PO SCH (10:22)
[2023-07-13] MEDS: Divalproex Sodium Delayed-Release 500 MG Tab.CR PO SCH ×2 (10:22→20:42)
[2023-07-13] MEDS: Simethicone 80 MG Tab.Chew PO SCH ×2 (10:22→20:41)
[2023-07-13] MEDS: Sennosides 8.6 MG Tab PO SCH (10:23)
[2023-07-13] MEDS: hydrOXYzine HCl 25 MG Tab PO SCH ×2 (10:23→20:42)
[2023-07-13] MEDS: Carboxymethylcellulose Sodium 1% Ophth Gel 15 ML Bottle EYEBOTH SCH ×3 (10:23→20:43)
[2023-07-13] MEDS: Clotrimazole 1% Crm 30 GM Tube TOP SCH ×2 (10:23→20:43)
[2023-07-13] MEDS: Cholecalciferol (Vitamin D3) 25 MCG Tab PO SCH (10:23)
[2023-07-13] MEDS: oxyCODONE 5 MG Tab PO SCH (10:24)
[2023-07-13] MEDS: Metoprolol Tartrate 25 MG Tab PO SCH ×2 (10:24→21:00)
[2023-07-13] MEDS: Enoxaparin 40 MG/0.4 ML Syringe SUBCUT SCH (16:25)
[2023-07-13] MEDS: QUEtiapine 100 MG Tab PO SCH (20:42)
[2023-07-13] MEDS: QUEtiapine 25 MG Tab PO SCH (20:42)
[2023-07-13] MEDS: Benztropine 1 MG Tab PO SCH (20:42)
[2023-07-14] MEDS: levETIRAcetam 500 MG Tab PO SCH ×2 (08:01→20:11)
[2023-07-14] MEDS: Simethicone 80 MG Tab.Chew PO SCH ×2 (08:01→20:10)
[2023-07-14] MEDS: hydrOXYzine HCl 25 MG Tab PO SCH ×2 (08:01→20:10)
[2023-07-14] MEDS: Venlafaxine 75 MG Cap.ER PO SCH (08:01)
[2023-07-14] MEDS: Sennosides 8.6 MG Tab PO SCH (08:01)
[2023-07-14] MEDS: Sodium Chloride 1 GM Tab PO SCH ×2 (08:01→20:19)
[2023-07-14] MEDS: Divalproex Sodium Delayed-Release 500 MG Tab.CR PO SCH ×2 (08:01→20:11)
[2023-07-14] MEDS: atorvaSTATin 40 MG Tab PO SCH (08:01)
[2023-07-14] MEDS: Lacosamide 100 MG Tab PO SCH ×2 (08:01→20:10)
[2023-07-14] MEDS: Metoprolol Tartrate 25 MG Tab PO SCH ×2 (08:02→20:12)
[2023-07-14] MEDS: Folic Acid 1 MG Tab PO SCH (08:02)
[2023-07-14] MEDS: Venlafaxine 37.5 MG Cap.ER PO SCH (08:02)
[2023-07-14] MEDS: Thiamine 100 MG Tab PO SCH (08:02)
[2023-07-14] MEDS: oxyCODONE 5 MG Tab PO SCH (08:05)
[2023-07-14] MEDS: Clotrimazole 1% Crm 30 GM Tube TOP SCH ×2 (08:07→20:16)
[2023-07-14] MEDS: Cholecalciferol (Vitamin D3) 25 MCG Tab PO SCH (08:07)
[2023-07-14] MEDS: Carboxymethylcellulose Sodium 1% Ophth Gel 15 ML Bottle EYEBOTH SCH ×3 (08:07→20:16)
[2023-07-14] MEDS: Lidocaine 4% 1 each Patch TOP PRN (08:19)
[2023-07-14] MEDS: Enoxaparin 40 MG/0.4 ML Syringe SUBCUT SCH (14:27)
[2023-07-14] MEDS: Benztropine 1 MG Tab PO SCH (20:10)
[2023-07-14] MEDS: QUEtiapine 100 MG Tab PO SCH (20:11)
[2023-07-14] MEDS: QUEtiapine 25 MG Tab PO SCH (20:11)
[2023-07-15] MEDS: Venlafaxine 37.5 MG Cap.ER PO SCH (09:43)
[2023-07-15] MEDS: oxyCODONE 5 MG Tab PO SCH (09:43)
[2023-07-15] MEDS: Folic Acid 1 MG Tab PO SCH (09:43)
[2023-07-15] MEDS: Divalproex Sodium Delayed-Release 500 MG Tab.CR PO SCH ×2 (09:43→20:32)
[2023-07-15] MEDS: levETIRAcetam 500 MG Tab PO SCH ×2 (09:43→20:33)
[2023-07-15] MEDS: atorvaSTATin 40 MG Tab PO SCH (09:43)
[2023-07-15] MEDS: Clotrimazole 1% Crm 30 GM Tube TOP SCH ×2 (09:43→20:33)
[2023-07-15] MEDS: Venlafaxine 75 MG Cap.ER PO SCH (09:43)
[2023-07-15] MEDS: hydrOXYzine HCl 25 MG Tab PO SCH ×2 (09:43→20:32)
[2023-07-15] MEDS: Lacosamide 100 MG Tab PO SCH ×2 (09:44→20:32)
[2023-07-15] MEDS: Sodium Chloride 1 GM Tab PO SCH ×2 (09:44→20:32)
[2023-07-15] MEDS: Sennosides 8.6 MG Tab PO SCH (09:44)
[2023-07-15] MEDS: Simethicone 80 MG Tab.Chew PO SCH ×2 (09:44→20:33)
[2023-07-15] MEDS: Cholecalciferol (Vitamin D3) 25 MCG Tab PO SCH (09:44)
[2023-07-15] MEDS: Thiamine 100 MG Tab PO SCH (09:44)
[2023-07-15] MEDS: Carboxymethylcellulose Sodium 1% Ophth Gel 15 ML Bottle EYEBOTH SCH ×3 (09:44→20:33)
[2023-07-15] MEDS: Lidocaine 4% 1 each Patch TOP PRN (10:08)
[2023-07-15] MEDS: Metoprolol Tartrate 25 MG Tab PO SCH ×2 (10:09→20:33)
[2023-07-15] MEDS: Enoxaparin 40 MG/0.4 ML Syringe SUBCUT SCH (15:40)
[2023-07-15] MEDS: QUEtiapine 100 MG Tab PO SCH (20:32)
[2023-07-15] MEDS: QUEtiapine 25 MG Tab PO SCH (20:32)
[2023-07-15] MEDS: Benztropine 1 MG Tab PO SCH (20:33)
[2023-07-16] MEDS: Simethicone 80 MG Tab.Chew PO SCH ×2 (08:22→20:24)
[2023-07-16] MEDS: Lidocaine 4% 1 each Patch TOP PRN (08:22)
[2023-07-16] MEDS: Carboxymethylcellulose Sodium 1% Ophth Gel 15 ML Bottle EYEBOTH SCH ×3 (08:22→20:23)
[2023-07-16] MEDS: Venlafaxine 75 MG Cap.ER PO SCH (08:22)
[2023-07-16] MEDS: Sodium Chloride 1 GM Tab PO SCH ×2 (08:22→20:24)
[2023-07-16] MEDS: Clotrimazole 1% Crm 30 GM Tube TOP SCH ×2 (08:22→20:23)
[2023-07-16] MEDS: Metoprolol Tartrate 25 MG Tab PO SCH ×2 (08:23→20:25)
[2023-07-16] MEDS: Divalproex Sodium Delayed-Release 500 MG Tab.CR PO SCH ×2 (08:23→20:25)
[2023-07-16] MEDS: Sennosides 8.6 MG Tab PO SCH (08:23)
[2023-07-16] MEDS: Venlafaxine 37.5 MG Cap.ER PO SCH (08:23)
[2023-07-16] MEDS: oxyCODONE 5 MG Tab PO SCH (08:23)
[2023-07-16] MEDS: atorvaSTATin 40 MG Tab PO SCH (08:23)
[2023-07-16] MEDS: Lacosamide 100 MG Tab PO SCH ×2 (08:23→20:24)
[2023-07-16] MEDS: Folic Acid 1 MG Tab PO SCH (08:23)
[2023-07-16] MEDS: levETIRAcetam 500 MG Tab PO SCH ×2 (08:23→20:24)
[2023-07-16] MEDS: Cholecalciferol (Vitamin D3) 25 MCG Tab PO SCH (08:24)
[2023-07-16] MEDS: hydrOXYzine HCl 25 MG Tab PO SCH ×2 (08:24→20:25)
[2023-07-16] MEDS: Thiamine 100 MG Tab PO SCH (08:24)
[2023-07-16] MEDS: Enoxaparin 40 MG/0.4 ML Syringe SUBCUT SCH (15:06)
[2023-07-16] MEDS: QUEtiapine 25 MG Tab PO SCH (20:24)
[2023-07-16] MEDS: Benztropine 1 MG Tab PO SCH (20:25)
[2023-07-16] MEDS: QUEtiapine 100 MG Tab PO SCH (20:26)
[2023-07-17] MEDS: Venlafaxine 37.5 MG Cap.ER PO SCH (10:12)
[2023-07-17] MEDS: levETIRAcetam 500 MG Tab PO SCH ×2 (10:12→20:14)
[2023-07-17] MEDS: Lacosamide 100 MG Tab PO SCH ×2 (10:12→20:16)
[2023-07-17] MEDS: Sennosides 8.6 MG Tab PO SCH (10:12)
[2023-07-17] MEDS: hydrOXYzine HCl 25 MG Tab PO SCH ×2 (10:12→20:16)
[2023-07-17] MEDS: Cholecalciferol (Vitamin D3) 25 MCG Tab PO SCH (10:12)
[2023-07-17] MEDS: Metoprolol Tartrate 25 MG Tab PO SCH ×2 (10:13→20:25)
[2023-07-17] MEDS: Folic Acid 1 MG Tab PO SCH (10:13)
[2023-07-17] MEDS: atorvaSTATin 40 MG Tab PO SCH (10:13)
[2023-07-17] MEDS: Simethicone 80 MG Tab.Chew PO SCH ×2 (10:13→20:12)
[2023-07-17] MEDS: Divalproex Sodium Delayed-Release 500 MG Tab.CR PO SCH ×2 (10:13→20:16)
[2023-07-17] MEDS: Sodium Chloride 1 GM Tab PO SCH ×2 (10:13→20:11)
[2023-07-17] MEDS: Venlafaxine 75 MG Cap.ER PO SCH (10:13)
[2023-07-17] MEDS: oxyCODONE 5 MG Tab PO SCH (10:14)
[2023-07-17] MEDS: Thiamine 100 MG Tab PO SCH (10:14)
[2023-07-17] MEDS: Clotrimazole 1% Crm 30 GM Tube TOP SCH ×2 (10:15→20:19)
[2023-07-17] MEDS: Carboxymethylcellulose Sodium 1% Ophth Gel 15 ML Bottle EYEBOTH SCH ×3 (10:15→20:18)
[2023-07-17] MEDS: Enoxaparin 40 MG/0.4 ML Syringe SUBCUT SCH (14:54)
[2023-07-17] MEDS: QUEtiapine 100 MG Tab PO SCH (20:14)
[2023-07-17] MEDS: QUEtiapine 25 MG Tab PO SCH (20:16)
[2023-07-17] MEDS: Benztropine 1 MG Tab PO SCH (20:17)
[2023-07-18] MEDS: Divalproex Sodium Delayed-Release 500 MG Tab.CR PO SCH ×2 (08:28→22:29)
[2023-07-18] MEDS: levETIRAcetam 500 MG Tab PO SCH ×2 (08:28→22:30)
[2023-07-18] MEDS: Folic Acid 1 MG Tab PO SCH (08:28)
[2023-07-18] MEDS: Cholecalciferol (Vitamin D3) 25 MCG Tab PO SCH (08:28)
[2023-07-18] MEDS: atorvaSTATin 40 MG Tab PO SCH (08:28)
[2023-07-18] MEDS: Venlafaxine 75 MG Cap.ER PO SCH (08:28)
[2023-07-18] MEDS: hydrOXYzine HCl 25 MG Tab PO SCH ×2 (08:29→22:28)
[2023-07-18] MEDS: Simethicone 80 MG Tab.Chew PO SCH ×2 (08:29→22:28)
[2023-07-18] MEDS: Venlafaxine 37.5 MG Cap.ER PO SCH (08:29)
[2023-07-18] MEDS: Thiamine 100 MG Tab PO SCH (08:29)
[2023-07-18] MEDS: Sodium Chloride 1 GM Tab PO SCH ×2 (08:29→22:30)
[2023-07-18] MEDS: Sennosides 8.6 MG Tab PO SCH (08:29)
[2023-07-18] MEDS: Lacosamide 100 MG Tab PO SCH ×2 (08:30→22:31)
[2023-07-18] MEDS: oxyCODONE 5 MG Tab PO SCH (08:30)
[2023-07-18] MEDS: Metoprolol Tartrate 25 MG Tab PO SCH ×2 (08:30→22:32)
[2023-07-18] MEDS: Clotrimazole 1% Crm 30 GM Tube TOP SCH ×2 (08:31→22:34)
[2023-07-18] MEDS: Carboxymethylcellulose Sodium 1% Ophth Gel 15 ML Bottle EYEBOTH SCH ×3 (08:32→22:34)
[2023-07-18] MEDS: Enoxaparin 40 MG/0.4 ML Syringe SUBCUT SCH (17:49)
[2023-07-18] MEDS: QUEtiapine 100 MG Tab PO SCH (22:28)
[2023-07-18] MEDS: QUEtiapine 25 MG Tab PO SCH (22:30)
[2023-07-18] MEDS: Benztropine 1 MG Tab PO SCH (22:31)
[2023-07-19] MEDS: levETIRAcetam 500 MG Tab PO SCH ×2 (10:15→20:31)
[2023-07-19] MEDS: Metoprolol Tartrate 25 MG Tab PO SCH ×2 (10:16→20:33)
[2023-07-19] MEDS: Divalproex Sodium Delayed-Release 500 MG Tab.CR PO SCH ×2 (10:16→20:30)
[2023-07-19] MEDS: atorvaSTATin 40 MG Tab PO SCH (10:16)
[2023-07-19] MEDS: Sennosides 8.6 MG Tab PO SCH (10:16)
[2023-07-19] MEDS: Venlafaxine 37.5 MG Cap.ER PO SCH (10:16)
[2023-07-19] MEDS: Cholecalciferol (Vitamin D3) 25 MCG Tab PO SCH (10:16)
[2023-07-19] MEDS: Simethicone 80 MG Tab.Chew PO SCH ×2 (10:16→20:31)
[2023-07-19] MEDS: hydrOXYzine HCl 25 MG Tab PO SCH ×2 (10:17→20:30)
[2023-07-19] MEDS: Sodium Chloride 1 GM Tab PO SCH ×2 (10:17→20:31)
[2023-07-19] MEDS: Venlafaxine 75 MG Cap.ER PO SCH (10:17)
[2023-07-19] MEDS: Thiamine 100 MG Tab PO SCH (10:17)
[2023-07-19] MEDS: oxyCODONE 5 MG Tab PO SCH (10:17)
[2023-07-19] MEDS: Lacosamide 100 MG Tab PO SCH ×2 (10:17→20:30)
[2023-07-19] MEDS: Folic Acid 1 MG Tab PO SCH (10:17)
[2023-07-19] MEDS: Carboxymethylcellulose Sodium 1% Ophth Gel 15 ML Bottle EYEBOTH SCH ×3 (10:18→20:36)
[2023-07-19] MEDS: Clotrimazole 1% Crm 30 GM Tube TOP SCH ×2 (10:18→20:36)
[2023-07-19] MEDS: Lidocaine 4% 1 each Patch TOP PRN (10:18)
[2023-07-19] MEDS: Enoxaparin 40 MG/0.4 ML Syringe SUBCUT SCH (14:45)
[2023-07-19] MEDS: QUEtiapine 25 MG Tab PO SCH (20:32)
[2023-07-19] MEDS: QUEtiapine 100 MG Tab PO SCH (20:32)
[2023-07-19] MEDS: Benztropine 1 MG Tab PO SCH (20:33)
[2023-07-20] MEDS: Cholecalciferol (Vitamin D3) 25 MCG Tab PO SCH (08:52)
[2023-07-20] MEDS: Lidocaine 4% 1 each Patch TOP PRN (08:52)
[2023-07-20] MEDS: atorvaSTATin 40 MG Tab PO SCH (08:52)
[2023-07-20] MEDS: Metoprolol Tartrate 25 MG Tab PO SCH ×2 (08:52→20:31)
[2023-07-20] MEDS: hydrOXYzine HCl 25 MG Tab PO SCH ×2 (08:53→20:31)
[2023-07-20] MEDS: Venlafaxine 75 MG Cap.ER PO SCH (08:53)
[2023-07-20] MEDS: Thiamine 100 MG Tab PO SCH (08:53)
[2023-07-20] MEDS: levETIRAcetam 500 MG Tab PO SCH ×2 (08:53→20:29)
[2023-07-20] MEDS: Folic Acid 1 MG Tab PO SCH (08:53)
[2023-07-20] MEDS: Divalproex Sodium Delayed-Release 500 MG Tab.CR PO SCH ×2 (08:53→20:29)
[2023-07-20] MEDS: oxyCODONE 5 MG Tab PO SCH (08:53)
[2023-07-20] MEDS: Simethicone 80 MG Tab.Chew PO SCH ×2 (08:54→20:31)
[2023-07-20] MEDS: Lacosamide 100 MG Tab PO SCH ×2 (08:54→20:31)
[2023-07-20] MEDS: Venlafaxine 37.5 MG Cap.ER PO SCH (08:54)
[2023-07-20] MEDS: Sodium Chloride 1 GM Tab PO SCH ×2 (08:54→20:30)
[2023-07-20] MEDS: Clotrimazole 1% Crm 30 GM Tube TOP SCH ×2 (08:54→20:32)
[2023-07-20] MEDS: Sennosides 8.6 MG Tab PO SCH (08:54)
[2023-07-20] MEDS: Carboxymethylcellulose Sodium 1% Ophth Gel 15 ML Bottle EYEBOTH SCH ×3 (08:55→20:33)
[2023-07-20] MEDS: Enoxaparin 40 MG/0.4 ML Syringe SUBCUT SCH (14:54)
[2023-07-20] MEDS: QUEtiapine 100 MG Tab PO SCH (20:29)
[2023-07-20] MEDS: Benztropine 1 MG Tab PO SCH (20:30)
[2023-07-20] MEDS: QUEtiapine 25 MG Tab PO SCH (20:31)
[2023-07-21] MEDS: Lidocaine 4% 1 each Patch TOP PRN (09:46)
[2023-07-21] MEDS: Clotrimazole 1% Crm 30 GM Tube TOP SCH ×2 (09:46→20:06)
[2023-07-21] MEDS: Carboxymethylcellulose Sodium 1% Ophth Gel 15 ML Bottle EYEBOTH SCH ×3 (09:46→20:06)
[2023-07-21] MEDS: Venlafaxine 37.5 MG Cap.ER PO SCH (09:47)
[2023-07-21] MEDS: Folic Acid 1 MG Tab PO SCH (09:47)
[2023-07-21] MEDS: levETIRAcetam 500 MG Tab PO SCH ×2 (09:47→20:07)
[2023-07-21] MEDS: Cholecalciferol (Vitamin D3) 25 MCG Tab PO SCH (09:47)
[2023-07-21] MEDS: Sennosides 8.6 MG Tab PO SCH (09:47)
[2023-07-21] MEDS: Metoprolol Tartrate 25 MG Tab PO SCH ×2 (09:47→20:13)
[2023-07-21] MEDS: Thiamine 100 MG Tab PO SCH (09:47)
[2023-07-21] MEDS: atorvaSTATin 40 MG Tab PO SCH (09:48)
[2023-07-21] MEDS: hydrOXYzine HCl 25 MG Tab PO SCH ×2 (09:48→20:09)
[2023-07-21] MEDS: Simethicone 80 MG Tab.Chew PO SCH ×2 (09:48→20:06)
[2023-07-21] MEDS: oxyCODONE 5 MG Tab PO SCH (09:48)
[2023-07-21] MEDS: Sodium Chloride 1 GM Tab PO SCH ×2 (09:48→20:08)
[2023-07-21] MEDS: Lacosamide 100 MG Tab PO SCH ×2 (09:48→20:10)
[2023-07-21] MEDS: Venlafaxine 75 MG Cap.ER PO SCH (09:48)
[2023-07-21] MEDS: Divalproex Sodium Delayed-Release 500 MG Tab.CR PO SCH ×2 (09:49→20:08)
[2023-07-21] MEDS: Enoxaparin 40 MG/0.4 ML Syringe SUBCUT SCH (15:27)
[2023-07-21] MEDS: QUEtiapine 25 MG Tab PO SCH (20:07)
[2023-07-21] MEDS: QUEtiapine 100 MG Tab PO SCH (20:09)
[2023-07-21] MEDS: Benztropine 1 MG Tab PO SCH (20:10)
[2023-07-22] MEDS: Lidocaine 4% 1 each Patch TOP PRN (08:49)
[2023-07-22] MEDS: Carboxymethylcellulose Sodium 1% Ophth Gel 15 ML Bottle EYEBOTH SCH ×3 (08:52→20:13)
[2023-07-22] MEDS: Simethicone 80 MG Tab.Chew PO SCH ×2 (08:52→20:16)
[2023-07-22] MEDS: hydrOXYzine HCl 25 MG Tab PO SCH ×2 (08:52→20:16)
[2023-07-22] MEDS: atorvaSTATin 40 MG Tab PO SCH (08:52)
[2023-07-22] MEDS: Clotrimazole 1% Crm 30 GM Tube TOP SCH ×2 (08:52→20:15)
[2023-07-22] MEDS: levETIRAcetam 500 MG Tab PO SCH ×2 (08:53→20:15)
[2023-07-22] MEDS: Lacosamide 100 MG Tab PO SCH ×2 (08:53→20:16)
[2023-07-22] MEDS: Divalproex Sodium Delayed-Release 500 MG Tab.CR PO SCH ×2 (08:53→20:17)
[2023-07-22] MEDS: Cholecalciferol (Vitamin D3) 25 MCG Tab PO SCH (08:53)
[2023-07-22] MEDS: Folic Acid 1 MG Tab PO SCH (08:53)
[2023-07-22] MEDS: Venlafaxine 75 MG Cap.ER PO SCH (08:53)
[2023-07-22] MEDS: Sennosides 8.6 MG Tab PO SCH (08:53)
[2023-07-22] MEDS: Metoprolol Tartrate 25 MG Tab PO SCH ×2 (08:53→20:17)
[2023-07-22] MEDS: Venlafaxine 37.5 MG Cap.ER PO SCH (08:53)
[2023-07-22] MEDS: Thiamine 100 MG Tab PO SCH (08:54)
[2023-07-22] MEDS: oxyCODONE 5 MG Tab PO SCH (08:54)
[2023-07-22] MEDS: Sodium Chloride 1 GM Tab PO SCH ×2 (08:54→20:15)
[2023-07-22] MEDS: Enoxaparin 40 MG/0.4 ML Syringe SUBCUT SCH (16:39)
[2023-07-22] MEDS: QUEtiapine 25 MG Tab PO SCH (20:15)
[2023-07-22] MEDS: Benztropine 1 MG Tab PO SCH (20:16)
[2023-07-22] MEDS: QUEtiapine 100 MG Tab PO SCH (20:16)
[2023-07-23] MEDS: atorvaSTATin 40 MG Tab PO SCH (08:40)
[2023-07-23] MEDS: oxyCODONE 5 MG Tab PO SCH (08:40)
[2023-07-23] MEDS: Acetaminophen 325 MG Tab PO PRN (08:42)
[2023-07-23] MEDS: Cholecalciferol (Vitamin D3) 25 MCG Tab PO SCH (08:42)
[2023-07-23] MEDS: Divalproex Sodium Delayed-Release 500 MG Tab.CR PO SCH ×2 (08:43→20:19)
[2023-07-23] MEDS: Folic Acid 1 MG Tab PO SCH (08:44)
[2023-07-23] MEDS: hydrOXYzine HCl 25 MG Tab PO SCH ×2 (08:45→20:18)
[2023-07-23] MEDS: levETIRAcetam 500 MG Tab PO SCH ×2 (08:45→20:18)
[2023-07-23] MEDS: Thiamine 100 MG Tab PO SCH (08:45)
[2023-07-23] MEDS: Venlafaxine 37.5 MG Cap.ER PO SCH (08:45)
[2023-07-23] MEDS: Lacosamide 100 MG Tab PO SCH ×2 (08:47→20:18)
[2023-07-23] MEDS: Metoprolol Tartrate 25 MG Tab PO SCH ×2 (08:47→20:20)
[2023-07-23] MEDS: Sennosides 8.6 MG Tab PO SCH (08:47)
[2023-07-23] MEDS: Venlafaxine 75 MG Cap.ER PO SCH (08:47)
[2023-07-23] MEDS: Sodium Chloride 1 GM Tab PO SCH ×2 (08:47→20:19)
[2023-07-23] MEDS: Simethicone 80 MG Tab.Chew PO SCH ×2 (08:47→20:18)
[2023-07-23] MEDS: Clotrimazole 1% Crm 30 GM Tube TOP SCH ×2 (08:48→20:17)
[2023-07-23] MEDS: Carboxymethylcellulose Sodium 1% Ophth Gel 15 ML Bottle EYEBOTH SCH ×3 (08:48→20:17)
[2023-07-23] MEDS: Lidocaine 4% 1 each Patch TOP PRN (09:09)
[2023-07-23] MEDS: Enoxaparin 40 MG/0.4 ML Syringe SUBCUT SCH (14:27)
[2023-07-23] MEDS: QUEtiapine 100 MG Tab PO SCH (20:18)
[2023-07-23] MEDS: QUEtiapine 25 MG Tab PO SCH (20:19)
[2023-07-23] MEDS: Benztropine 1 MG Tab PO SCH (20:20)
[2023-07-24] MEDS: Lacosamide 100 MG Tab PO SCH ×2 (08:26→20:49)
[2023-07-24] MEDS: Simethicone 80 MG Tab.Chew PO SCH ×2 (08:26→20:48)
[2023-07-24] MEDS: Divalproex Sodium Delayed-Release 500 MG Tab.CR PO SCH ×2 (08:26→20:46)
[2023-07-24] MEDS: Thiamine 100 MG Tab PO SCH (08:26)
[2023-07-24] MEDS: Sodium Chloride 1 GM Tab PO SCH ×2 (08:29→20:48)
[2023-07-24] MEDS: Sennosides 8.6 MG Tab PO SCH (08:29)
[2023-07-24] MEDS: Folic Acid 1 MG Tab PO SCH (08:29)
[2023-07-24] MEDS: hydrOXYzine HCl 25 MG Tab PO SCH ×2 (08:29→20:46)
[2023-07-24] MEDS: Venlafaxine 37.5 MG Cap.ER PO SCH (08:29)
[2023-07-24] MEDS: Cholecalciferol (Vitamin D3) 25 MCG Tab PO SCH (08:29)
[2023-07-24] MEDS: levETIRAcetam 500 MG Tab PO SCH ×2 (08:29→20:47)
[2023-07-24] MEDS: oxyCODONE 5 MG Tab PO SCH (08:30)
[2023-07-24] MEDS: Venlafaxine 75 MG Cap.ER PO SCH (08:30)
[2023-07-24] MEDS: Metoprolol Tartrate 25 MG Tab PO SCH ×2 (08:31→20:49)
[2023-07-24] MEDS: atorvaSTATin 40 MG Tab PO SCH (08:31)
[2023-07-24] MEDS: Clotrimazole 1% Crm 30 GM Tube TOP SCH ×2 (08:32→20:49)
[2023-07-24] MEDS: Carboxymethylcellulose Sodium 1% Ophth Gel 15 ML Bottle EYEBOTH SCH ×3 (08:32→20:50)
[2023-07-24] MEDS: Carboxymethylcellulose Sodium 1% Ophth Gel 15 ML Bottle EYEBOTH PRN (15:27)
[2023-07-24] MEDS: Enoxaparin 40 MG/0.4 ML Syringe SUBCUT SCH (15:28)
[2023-07-24] MEDS: QUEtiapine 100 MG Tab PO SCH (20:47)
[2023-07-24] MEDS: QUEtiapine 25 MG Tab PO SCH (20:48)
[2023-07-24] MEDS: Benztropine 1 MG Tab PO SCH (20:49)
[2023-07-25] MEDS: Sennosides 8.6 MG Tab PO SCH (09:34)
[2023-07-25] MEDS: hydrOXYzine HCl 25 MG Tab PO SCH ×2 (09:35→21:30)
[2023-07-25] MEDS: levETIRAcetam 500 MG Tab PO SCH ×2 (09:35→21:26)
[2023-07-25] MEDS: Thiamine 100 MG Tab PO SCH (09:35)
[2023-07-25] MEDS: oxyCODONE 5 MG Tab PO SCH (09:35)
[2023-07-25] MEDS: Lacosamide 100 MG Tab PO SCH ×2 (09:35→21:30)
[2023-07-25] MEDS: Metoprolol Tartrate 25 MG Tab PO SCH ×2 (09:35→21:30)
[2023-07-25] MEDS: Cholecalciferol (Vitamin D3) 25 MCG Tab PO SCH (09:35)
[2023-07-25] MEDS: atorvaSTATin 40 MG Tab PO SCH (09:35)
[2023-07-25] MEDS: Sodium Chloride 1 GM Tab PO SCH ×2 (09:35→21:29)
[2023-07-25] MEDS: Folic Acid 1 MG Tab PO SCH (09:36)
[2023-07-25] MEDS: Venlafaxine 75 MG Cap.ER PO SCH (09:36)
[2023-07-25] MEDS: Venlafaxine 37.5 MG Cap.ER PO SCH (09:36)
[2023-07-25] MEDS: Divalproex Sodium Delayed-Release 500 MG Tab.CR PO SCH ×2 (09:36→21:28)
[2023-07-25] MEDS: Carboxymethylcellulose Sodium 1% Ophth Gel 15 ML Bottle EYEBOTH PRN (09:37)
[2023-07-25] MEDS: Clotrimazole 1% Crm 30 GM Tube TOP SCH ×2 (09:37→21:26)
[2023-07-25] MEDS: Carboxymethylcellulose Sodium 1% Ophth Gel 15 ML Bottle EYEBOTH SCH ×3 (09:37→21:28)
[2023-07-25] MEDS: Simethicone 80 MG Tab.Chew PO SCH ×2 (09:37→21:48)
[2023-07-25] MEDS: Enoxaparin 40 MG/0.4 ML Syringe SUBCUT SCH (16:10)
[2023-07-25] MEDS: QUEtiapine 100 MG Tab PO SCH (21:29)
[2023-07-25] MEDS: QUEtiapine 25 MG Tab PO SCH (21:30)
[2023-07-25] MEDS: Acetaminophen 325 MG Tab PO PRN (21:30)
[2023-07-25] MEDS: Benztropine 1 MG Tab PO SCH (21:30)
[2023-07-26] MEDS: oxyCODONE 5 MG Tab PO SCH (09:24)
[2023-07-26] MEDS: Venlafaxine 75 MG Cap.ER PO SCH (09:24)
[2023-07-26] MEDS: Metoprolol Tartrate 25 MG Tab PO SCH ×2 (09:24→20:51)
[2023-07-26] MEDS: levETIRAcetam 500 MG Tab PO SCH ×2 (09:24→20:45)
[2023-07-26] MEDS: Sodium Chloride 1 GM Tab PO SCH ×2 (09:25→20:45)
[2023-07-26] MEDS: Lacosamide 100 MG Tab PO SCH ×2 (09:25→20:46)
[2023-07-26] MEDS: Folic Acid 1 MG Tab PO SCH (09:25)
[2023-07-26] MEDS: hydrOXYzine HCl 25 MG Tab PO SCH ×2 (09:25→20:46)
[2023-07-26] MEDS: Divalproex Sodium Delayed-Release 500 MG Tab.CR PO SCH ×2 (09:26→20:46)
[2023-07-26] MEDS: Venlafaxine 37.5 MG Cap.ER PO SCH (09:26)
[2023-07-26] MEDS: atorvaSTATin 40 MG Tab PO SCH (09:26)
[2023-07-26] MEDS: Sennosides 8.6 MG Tab PO SCH (09:26)
[2023-07-26] MEDS: Simethicone 80 MG Tab.Chew PO SCH ×2 (09:26→20:45)
[2023-07-26] MEDS: Thiamine 100 MG Tab PO SCH (09:26)
[2023-07-26] MEDS: Cholecalciferol (Vitamin D3) 25 MCG Tab PO SCH (09:26)
[2023-07-26] MEDS: Clotrimazole 1% Crm 30 GM Tube TOP SCH ×2 (09:27→20:44)
[2023-07-26] MEDS: Carboxymethylcellulose Sodium 1% Ophth Gel 15 ML Bottle EYEBOTH SCH ×3 (09:27→20:45)
[2023-07-26] MEDS: Enoxaparin 40 MG/0.4 ML Syringe SUBCUT SCH (15:39)
[2023-07-26] MEDS: QUEtiapine 25 MG Tab PO SCH (20:45)
[2023-07-26] MEDS: QUEtiapine 100 MG Tab PO SCH (20:45)
[2023-07-26] MEDS: Acetaminophen 325 MG Tab PO PRN (20:46)
[2023-07-26] MEDS: Benztropine 1 MG Tab PO SCH (20:46)
[2023-07-27] MEDS: Folic Acid 1 MG Tab PO SCH (08:35)
[2023-07-27] MEDS: Venlafaxine 37.5 MG Cap.ER PO SCH (08:35)
[2023-07-27] MEDS: Sodium Chloride 1 GM Tab PO SCH ×2 (08:35→21:04)
[2023-07-27] MEDS: Simethicone 80 MG Tab.Chew PO SCH ×2 (08:35→21:01)
[2023-07-27] MEDS: Cholecalciferol (Vitamin D3) 25 MCG Tab PO SCH (08:35)
[2023-07-27] MEDS: hydrOXYzine HCl 25 MG Tab PO SCH ×2 (08:35→21:03)
[2023-07-27] MEDS: Venlafaxine 75 MG Cap.ER PO SCH (08:36)
[2023-07-27] MEDS: Divalproex Sodium Delayed-Release 500 MG Tab.CR PO SCH ×2 (08:36→21:02)
[2023-07-27] MEDS: Sennosides 8.6 MG Tab PO SCH (08:36)
[2023-07-27] MEDS: Lacosamide 100 MG Tab PO SCH ×2 (08:36→21:03)
[2023-07-27] MEDS: levETIRAcetam 500 MG Tab PO SCH ×2 (08:36→21:03)
[2023-07-27] MEDS: Thiamine 100 MG Tab PO SCH (08:37)
[2023-07-27] MEDS: atorvaSTATin 40 MG Tab PO SCH (08:37)
[2023-07-27] MEDS: Metoprolol Tartrate 25 MG Tab PO SCH ×2 (08:37→21:06)
[2023-07-27] MEDS: oxyCODONE 5 MG Tab PO SCH (08:38)
[2023-07-27] MEDS: Clotrimazole 1% Crm 30 GM Tube TOP SCH ×2 (08:38→21:06)
[2023-07-27] MEDS: Lidocaine 4% 1 each Patch TOP PRN (08:38)
[2023-07-27] MEDS: Carboxymethylcellulose Sodium 1% Ophth Gel 15 ML Bottle EYEBOTH SCH ×3 (08:39→21:06)
[2023-07-27] MEDS: Acetaminophen 325 MG Tab PO PRN (15:53)
[2023-07-27] MEDS: Enoxaparin 40 MG/0.4 ML Syringe SUBCUT SCH (15:54)
[2023-07-27] MEDS: QUEtiapine 100 MG Tab PO SCH (21:03)
[2023-07-27] MEDS: Benztropine 1 MG Tab PO SCH (21:03)
[2023-07-27] MEDS: QUEtiapine 25 MG Tab PO SCH (21:04)
[2023-07-28] MEDS: Sodium Chloride 1 GM Tab PO SCH ×2 (08:00→20:19)
[2023-07-28] MEDS: Cholecalciferol (Vitamin D3) 25 MCG Tab PO SCH (08:03)
[2023-07-28] MEDS: hydrOXYzine HCl 25 MG Tab PO SCH ×2 (08:03→20:19)
[2023-07-28] MEDS: Lacosamide 100 MG Tab PO SCH ×2 (08:03→20:18)
[2023-07-28] MEDS: Simethicone 80 MG Tab.Chew PO SCH ×2 (08:04→20:14)
[2023-07-28] MEDS: Venlafaxine 37.5 MG Cap.ER PO SCH (08:05)
[2023-07-28] MEDS: Thiamine 100 MG Tab PO SCH (08:05)
[2023-07-28] MEDS: Divalproex Sodium Delayed-Release 500 MG Tab.CR PO SCH ×2 (08:07→20:19)
[2023-07-28] MEDS: Venlafaxine 75 MG Cap.ER PO SCH (08:07)
[2023-07-28] MEDS: atorvaSTATin 40 MG Tab PO SCH (08:07)
[2023-07-28] MEDS: Folic Acid 1 MG Tab PO SCH (08:07)
[2023-07-28] MEDS: Metoprolol Tartrate 25 MG Tab PO SCH ×2 (08:08→20:18)
[2023-07-28] MEDS: oxyCODONE 5 MG Tab PO SCH (08:08)
[2023-07-28] MEDS: Carboxymethylcellulose Sodium 1% Ophth Gel 15 ML Bottle EYEBOTH SCH ×3 (08:09→20:20)
[2023-07-28] MEDS: levETIRAcetam 500 MG Tab PO SCH ×2 (08:09→20:14)
[2023-07-28] MEDS: Clotrimazole 1% Crm 30 GM Tube TOP SCH ×2 (08:09→20:47)
[2023-07-28] MEDS: Sennosides 8.6 MG Tab PO SCH (08:09)
[2023-07-28] MEDS: Enoxaparin 40 MG/0.4 ML Syringe SUBCUT SCH (15:16)
[2023-07-28] MEDS: Benztropine 1 MG Tab PO SCH (20:15)
[2023-07-28] MEDS: QUEtiapine 100 MG Tab PO SCH (20:19)
[2023-07-28] MEDS: QUEtiapine 25 MG Tab PO SCH (20:19)
[2023-07-29 08:29] LABS: HEMATOCRIT 54.1 % (42.0-52.0); MEAN CORPUSCULAR HGB CONC 33.3 g/dl (32.0-36.0); MEAN CORPUSCULAR VOLUME 87.3 fl (83.0-99.0); MEAN PLATELET VOLUME 9.6 fl (9.4-12.4); PLATELET COUNT,PLT 96 K/mm3 (150-400); WHITE BLOOD CELL COUNT,WBC 8.89 K/mm3 (3.9-11.3)
[2023-07-29 08:53] LABS: A/G RATIO 0.7 (1-2); ANION GAP 13.8 (5-15); BILIRUBIN TOTAL 0.6 mg/dL (0.2-1.0); BUN/CREATININE RATIO 13.8 (14-18); CALCIUM 8.9 mg/dL (8.5-10.1); CREATININE 0.8 mg/dL (0.7-1.3); EST CRCL DRUG DOSING (CG) 106.08 mL/min; POTASSIUM,K 3.8 mEq/L (3.5-5.1); PROTEIN TOTAL,TP 7.2 g/dl (6.4-8.2)
[2023-07-29] MEDS: Lidocaine 4% 1 each Patch TOP PRN (09:43)
[2023-07-29] MEDS: Cholecalciferol (Vitamin D3) 25 MCG Tab PO SCH (09:45)
[2023-07-29] MEDS: Divalproex Sodium Delayed-Release 500 MG Tab.CR PO SCH ×2 (09:45→20:10)
[2023-07-29] MEDS: Sodium Chloride 1 GM Tab PO SCH ×2 (09:45→20:11)
[2023-07-29] MEDS: hydrOXYzine HCl 25 MG Tab PO SCH ×2 (09:45→20:13)
[2023-07-29] MEDS: Simethicone 80 MG Tab.Chew PO SCH ×2 (09:46→20:10)
[2023-07-29] MEDS: atorvaSTATin 40 MG Tab PO SCH (09:46)
[2023-07-29] MEDS: Thiamine 100 MG Tab PO SCH (09:46)
[2023-07-29] MEDS: Venlafaxine 75 MG Cap.ER PO SCH (09:46)
[2023-07-29] MEDS: levETIRAcetam 500 MG Tab PO SCH ×2 (09:46→20:10)
[2023-07-29] MEDS: Lacosamide 100 MG Tab PO SCH ×2 (09:46→20:11)
[2023-07-29] MEDS: Venlafaxine 37.5 MG Cap.ER PO SCH (09:46)
[2023-07-29] MEDS: Sennosides 8.6 MG Tab PO SCH (09:46)
[2023-07-29] MEDS: Metoprolol Tartrate 25 MG Tab PO SCH ×2 (09:47→20:10)
[2023-07-29] MEDS: Carboxymethylcellulose Sodium 1% Ophth Gel 15 ML Bottle EYEBOTH SCH ×3 (09:47→20:09)
[2023-07-29] MEDS: Clotrimazole 1% Crm 30 GM Tube TOP SCH ×2 (09:47→20:09)
[2023-07-29] MEDS: oxyCODONE 5 MG Tab PO SCH (09:50)
[2023-07-29] MEDS: Folic Acid 1 MG Tab PO SCH (09:50)
[2023-07-29] MEDS: Albuterol/Ipratropium 3.0-0.5 MG/3 ML Neb Soln NEB PRN ×3 (10:10→21:39)
[2023-07-29 10:18] LABS: PCO2 ARTERIAL 44.7 mmHg (35.0-45.0)
[2023-07-29 10:19] LABS: BASE EXCESS ARTERIAL 0.6 (-2-2.0); BICARBONATE,ARTERIAL 25.7 meq/L (22.0-26.0)
[2023-07-29] MEDS ORDERED: Iopamidol 612 MG/ML 100 ML Bottle IVPUSH ONE (10:29)
[2023-07-29] MEDS ORDERED: Sodium Chloride 0.9% 10 ML Syringe FLUSH PRN (10:29)
[2023-07-29] MEDS ORDERED: Sodium Chloride 0.9% 100 ML IV SCH (10:30)
[2023-07-29 13:37] LABS: CORONAVIRUS COVID-19 NAA NEGATIVE (NEGATIVE); INFLUENZA A NAA NEGATIVE (NEGATIVE); RESPIRATORY SYNCYTIAL VIR NAA NEGATIVE (NEGATIVE)
[2023-07-29] MEDS ORDERED: Piperacillin/Tazobactam 4.5 GM in Sodium Chloride 0.9% 100 ML IV ONE (14:00)
[2023-07-29] MEDS: Enoxaparin 40 MG/0.4 ML Syringe SUBCUT SCH (15:27)
[2023-07-29] MEDS: QUEtiapine 100 MG Tab PO SCH (20:10)
[2023-07-29] MEDS: Benztropine 1 MG Tab PO SCH (20:11)
[2023-07-29] MEDS: Piperacillin/Tazobactam 4.5 GM in Sodium Chloride 0.9% 100 ML IV SCH (21:10)
[2023-07-29] MEDS ORDERED: Piperacillin/Tazobactam 4.5 GM in Sodium Chloride 0.9% 100 ML IV SCH (22:00)
[2023-07-30] MEDS: Piperacillin/Tazobactam 4.5 GM in Sodium Chloride 0.9% 100 ML IV SCH ×3 (05:05→22:27)
[2023-07-30 05:45] LABS: BASOPHILS PERCENT AUTO 0.2 % (0.0-1.0); EOSINOPHILS ABSOLUTE AUTO 0.1 K/mm3 (0.0-0.4); EOSINOPHILS PERCENT AUTO 0.5 % (0.0-6.0); HEMATOCRIT 46.9 % (42.0-52.0); HEMOGLOBIN 15.3 gm/dl (14.0-18.0); IMMATURE GRAN ABSOLUTE AUTO 0.03 K/mm3 (0.00-0.05); IMMATURE GRAN PERCENT AUTO 0.3 % (0.0-0.4); LYMPHOCYTES ABSOLUTE AUTO 3.4 K/mm3 (1.0-4.8); LYMPHOCYTES PERCENT AUTO 36.2 % (24.0-44.0); MEAN CORPUSCULAR HEMOGLOBIN 29.4 pg (28.0-32.0); MEAN CORPUSCULAR HGB CONC 32.6 g/dl (32.0-36.0); MEAN PLATELET VOLUME 10.3 fl (9.4-12.4); MONOCYTES ABSOLUTE AUTO 0.7 K/mm3 (0.0-0.8); MONOCYTES PERCENT AUTO 7.8 % (0.0-8.0); NEUTROPHILS ABSOLUTE AUTO 5.2 K/mm3 (1.8-7.7); NRBC ABSOLUTE 0.02 (0.00-0.02); NRBC PERCENT 0.2 % (0.0-0.2); PLATELET COUNT,PLT 98 K/mm3 (150-400); RED BLOOD CELL COUNT 5.21 M/mm3 (4.52-5.90); WHITE BLOOD CELL COUNT,WBC 9.47 K/mm3 (3.9-11.3)
[2023-07-30 05:46] LABS: ANION GAP 13.7 (5-15); CALCIUM 8.3 mg/dL (8.5-10.1); EST CRCL DRUG DOSING (CG) 84.86 mL/min; MAGNESIUM 1.9 mg/dL (1.8-2.4); POTASSIUM,K 3.7 mEq/L (3.5-5.1)
[2023-07-30 05:59] LABS: C-REACTIVE PROTEIN 15.8 mg/dL (<1.0)
[2023-07-30] MEDS ORDERED: Albuterol 0.083% 2.5 MG/3 ML Neb Soln NEB PRN (07:48)
[2023-07-30] MEDS: Albuterol/Ipratropium 3.0-0.5 MG/3 ML Neb Soln NEB PRN ×4 (08:09→21:37)
[2023-07-30 08:38] LABS: SLIDE REVIEW ABNORMAL SMEAR
[2023-07-30] MEDS: Lidocaine 4% 1 each Patch TOP PRN (08:55)
[2023-07-30] MEDS: Cholecalciferol (Vitamin D3) 25 MCG Tab PO SCH (08:56)
[2023-07-30] MEDS: Lacosamide 100 MG Tab PO SCH ×2 (08:56→20:18)
[2023-07-30] MEDS: Sodium Chloride 1 GM Tab PO SCH ×2 (08:56→20:18)
[2023-07-30] MEDS: Divalproex Sodium Delayed-Release 500 MG Tab.CR PO SCH ×2 (08:56→20:18)
[2023-07-30] MEDS: Carboxymethylcellulose Sodium 1% Ophth Gel 15 ML Bottle EYEBOTH SCH ×3 (08:56→20:16)
[2023-07-30] MEDS: Sennosides 8.6 MG Tab PO SCH (08:56)
[2023-07-30] MEDS: Venlafaxine 75 MG Cap.ER PO SCH (08:56)
[2023-07-30] MEDS: levETIRAcetam 500 MG Tab PO SCH ×2 (08:56→20:20)
[2023-07-30] MEDS: Thiamine 100 MG Tab PO SCH (08:57)
[2023-07-30] MEDS: Folic Acid 1 MG Tab PO SCH (08:57)
[2023-07-30] MEDS: Metoprolol Tartrate 25 MG Tab PO SCH ×2 (08:57→20:21)
[2023-07-30] MEDS: Simethicone 80 MG Tab.Chew PO SCH ×2 (08:57→20:19)
[2023-07-30] MEDS: oxyCODONE 5 MG Tab PO SCH (08:58)
[2023-07-30] MEDS: atorvaSTATin 40 MG Tab PO SCH (08:58)
[2023-07-30] MEDS: hydrOXYzine HCl 25 MG Tab PO SCH ×2 (08:58→20:19)
[2023-07-30] MEDS: Acetaminophen 325 MG Tab PO PRN (08:59)
[2023-07-30] MEDS: Venlafaxine 37.5 MG Cap.ER PO SCH (09:00)
[2023-07-30] MEDS: Clotrimazole 1% Crm 30 GM Tube TOP SCH ×2 (09:00→20:16)
[2023-07-30] MEDS: Sodium Chloride 0.9% 1,000 ML IV SCH ×2 (10:48→18:24)
[2023-07-30] MEDS: Enoxaparin 40 MG/0.4 ML Syringe SUBCUT SCH (14:22)
[2023-07-30] MEDS: Benztropine 1 MG Tab PO SCH (20:17)
[2023-07-30] MEDS: QUEtiapine 100 MG Tab PO SCH (20:20)
[2023-07-31] MEDS: Piperacillin/Tazobactam 4.5 GM in Sodium Chloride 0.9% 100 ML IV SCH ×3 (06:21→21:12)
[2023-07-31 06:35] LABS: BASOPHILS PERCENT AUTO 0.2 % (0.0-1.0); EOSINOPHILS ABSOLUTE AUTO 0.1 K/mm3 (0.0-0.4); EOSINOPHILS PERCENT AUTO 1.6 % (0.0-6.0); HEMATOCRIT 46.3 % (42.0-52.0); HEMOGLOBIN 15.1 gm/dl (14.0-18.0); IMMATURE GRAN ABSOLUTE AUTO 0.02 K/mm3 (0.00-0.05); IMMATURE GRAN PERCENT AUTO 0.4 % (0.0-0.4); LYMPHOCYTES ABSOLUTE AUTO 2.1 K/mm3 (1.0-4.8); LYMPHOCYTES PERCENT AUTO 40.4 % (24.0-44.0); MEAN CORPUSCULAR HEMOGLOBIN 28.8 pg (28.0-32.0); MEAN CORPUSCULAR HGB CONC 32.6 g/dl (32.0-36.0); MEAN CORPUSCULAR VOLUME 88.4 fl (83.0-99.0); MEAN PLATELET VOLUME 9.7 fl (9.4-12.4); MONOCYTES ABSOLUTE AUTO 0.5 K/mm3 (0.0-0.8); MONOCYTES PERCENT AUTO 9.2 % (0.0-8.0); NEUTROPHILS ABSOLUTE AUTO 2.5 K/mm3 (1.8-7.7); NEUTROPHILS PERCENT AUTO 48.2 % (41.0-71.0); PLATELET COUNT,PLT 87 K/mm3 (150-400); RED BLOOD CELL COUNT 5.24 M/mm3 (4.52-5.90); WHITE BLOOD CELL COUNT,WBC 5.13 K/mm3 (3.9-11.3)
[2023-07-31] MEDS: Albuterol/Ipratropium 3.0-0.5 MG/3 ML Neb Soln NEB SCH ×4 (06:41→20:47)
[2023-07-31 06:50] LABS: ANION GAP 12.1 (5-15); BUN/CREATININE RATIO 17.1 (14-18); C-REACTIVE PROTEIN 7.4 mg/dL (<1.0); CALCIUM 8.3 mg/dL (8.5-10.1); CREATININE 0.7 mg/dL (0.7-1.3); EST CRCL DRUG DOSING (CG) 121.23 mL/min; POTASSIUM,K 4.1 mEq/L (3.5-5.1)
[2023-07-31 07:11] LABS: SLIDE REVIEW ABNORMAL SMEAR
[2023-07-31 07:38] LABS: BASE EXCESS ARTERIAL 3.2 (-2-2.0); BICARBONATE,ARTERIAL 28.8 meq/L (22.0-26.0); O2 SATURATION ARTERIAL 92.9 % (96.0-97.0); PCO2 ARTERIAL 49.8 mmHg (35.0-45.0)
[2023-07-31] MEDS: Simethicone 80 MG Tab.Chew PO SCH ×2 (09:47→21:10)
[2023-07-31] MEDS: Lacosamide 100 MG Tab PO SCH ×2 (09:48→21:10)
[2023-07-31] MEDS: Metoprolol Tartrate 25 MG Tab PO SCH ×2 (09:49→21:04)
[2023-07-31] MEDS: Venlafaxine 75 MG Cap.ER PO SCH (09:49)
[2023-07-31] MEDS: Divalproex Sodium Delayed-Release 500 MG Tab.CR PO SCH ×2 (09:50→21:07)
[2023-07-31] MEDS: levETIRAcetam 500 MG Tab PO SCH ×2 (09:50→21:05)
[2023-07-31] MEDS: hydrOXYzine HCl 25 MG Tab PO SCH ×2 (09:51→21:08)
[2023-07-31] MEDS: Thiamine 100 MG Tab PO SCH (09:51)
[2023-07-31] MEDS: Sennosides 8.6 MG Tab PO SCH (09:52)
[2023-07-31] MEDS: atorvaSTATin 40 MG Tab PO SCH (09:52)
[2023-07-31] MEDS: Folic Acid 1 MG Tab PO SCH (09:52)
[2023-07-31] MEDS: Cholecalciferol (Vitamin D3) 25 MCG Tab PO SCH (09:52)
[2023-07-31] MEDS: oxyCODONE 5 MG Tab PO SCH (09:53)
[2023-07-31] MEDS: Sodium Chloride 1 GM Tab PO SCH ×2 (09:53→21:06)
[2023-07-31] MEDS: Venlafaxine 37.5 MG Cap.ER PO SCH (09:53)
[2023-07-31] MEDS: Lidocaine 4% 1 each Patch TOP PRN (09:55)
[2023-07-31] MEDS: Carboxymethylcellulose Sodium 1% Ophth Gel 15 ML Bottle EYEBOTH SCH ×3 (09:55→21:11)
[2023-07-31] MEDS: Clotrimazole 1% Crm 30 GM Tube TOP SCH ×2 (09:55→21:11)
[2023-07-31] MEDS: Benztropine 1 MG Tab PO SCH (21:06)
[2023-07-31] MEDS: QUEtiapine 100 MG Tab PO SCH (21:09)
[2023-08-01] MEDS: Piperacillin/Tazobactam 4.5 GM in Sodium Chloride 0.9% 100 ML IV SCH ×3 (05:06→21:06)
[2023-08-01 05:29] LABS: ANION GAP 10.4 (5-15); BUN/CREATININE RATIO 12.9 (14-18); C-REACTIVE PROTEIN 3.4 mg/dL (<1.0); CALCIUM 8.5 mg/dL (8.5-10.1); CREATININE 0.7 mg/dL (0.7-1.3); EST CRCL DRUG DOSING (CG) 121.23 mL/min; POTASSIUM,K 3.4 mEq/L (3.5-5.1)
[2023-08-01 05:46] LABS: BASOPHILS PERCENT AUTO 0.4 % (0.0-1.0); EOSINOPHILS ABSOLUTE AUTO 0.1 K/mm3 (0.0-0.4); EOSINOPHILS PERCENT AUTO 2.1 % (0.0-6.0); HEMATOCRIT 44.2 % (42.0-52.0); HEMOGLOBIN 14.7 gm/dl (14.0-18.0); IMMATURE GRAN ABSOLUTE AUTO 0.02 K/mm3 (0.00-0.05); IMMATURE GRAN PERCENT AUTO 0.4 % (0.0-0.4); LYMPHOCYTES ABSOLUTE AUTO 2.5 K/mm3 (1.0-4.8); LYMPHOCYTES PERCENT AUTO 47.7 % (24.0-44.0); MEAN CORPUSCULAR HEMOGLOBIN 28.5 pg (28.0-32.0); MEAN CORPUSCULAR HGB CONC 33.3 g/dl (32.0-36.0); MEAN CORPUSCULAR VOLUME 85.8 fl (83.0-99.0); MONOCYTES ABSOLUTE AUTO 0.5 K/mm3 (0.0-0.8); MONOCYTES PERCENT AUTO 10.3 % (0.0-8.0); NEUTROPHILS PERCENT AUTO 39.1 % (41.0-71.0); PLATELET COUNT,PLT 125 K/mm3 (150-400); RED BLOOD CELL COUNT 5.15 M/mm3 (4.52-5.90); WHITE BLOOD CELL COUNT,WBC 5.16 K/mm3 (3.9-11.3)
[2023-08-01] MEDS: Albuterol/Ipratropium 3.0-0.5 MG/3 ML Neb Soln NEB SCH ×4 (06:13→20:48)
[2023-08-01] MEDS ORDERED: Potassium Chloride 20 MEQ Tab.ER PO ONE (09:00)
[2023-08-01] MEDS: levETIRAcetam 500 MG Tab PO SCH ×2 (09:38→21:03)
[2023-08-01] MEDS: Sodium Chloride 1 GM Tab PO SCH ×2 (09:40→21:03)
[2023-08-01] MEDS: atorvaSTATin 40 MG Tab PO SCH (09:40)
[2023-08-01] MEDS: Sennosides 8.6 MG Tab PO SCH (09:40)
[2023-08-01] MEDS: Venlafaxine 75 MG Cap.ER PO SCH (09:40)
[2023-08-01] MEDS: Simethicone 80 MG Tab.Chew PO SCH ×2 (09:41→21:01)
[2023-08-01] MEDS: Divalproex Sodium Delayed-Release 500 MG Tab.CR PO SCH ×2 (09:42→21:04)
[2023-08-01] MEDS: Venlafaxine 37.5 MG Cap.ER PO SCH (09:43)
[2023-08-01] MEDS: Cholecalciferol (Vitamin D3) 25 MCG Tab PO SCH (09:43)
[2023-08-01] MEDS: Lacosamide 100 MG Tab PO SCH ×2 (09:43→21:04)
[2023-08-01] MEDS: Thiamine 100 MG Tab PO SCH (09:44)
[2023-08-01] MEDS: Folic Acid 1 MG Tab PO SCH (09:44)
[2023-08-01] MEDS: Carboxymethylcellulose Sodium 1% Ophth Gel 15 ML Bottle EYEBOTH SCH ×3 (09:44→21:05)
[2023-08-01] MEDS: hydrOXYzine HCl 25 MG Tab PO SCH ×2 (09:44→21:04)
[2023-08-01] MEDS: Lidocaine 4% 1 each Patch TOP PRN (09:45)
[2023-08-01] MEDS: Clotrimazole 1% Crm 30 GM Tube TOP SCH ×2 (09:45→21:05)
[2023-08-01] MEDS: Metoprolol Tartrate 25 MG Tab PO SCH ×2 (09:45→21:01)
[2023-08-01] MEDS: oxyCODONE 5 MG Tab PO SCH (09:46)
[2023-08-01] MEDS: Benztropine 1 MG Tab PO SCH (21:02)
[2023-08-01] MEDS: QUEtiapine 100 MG Tab PO SCH (21:03)
[2023-08-02] MEDS: Piperacillin/Tazobactam 4.5 GM in Sodium Chloride 0.9% 100 ML IV SCH (06:14)
[2023-08-02 06:22] LABS: BASOPHILS PERCENT AUTO 0.2 % (0.0-1.0); EOSINOPHILS ABSOLUTE AUTO 0.1 K/mm3 (0.0-0.4); EOSINOPHILS PERCENT AUTO 3.1 % (0.0-6.0); HEMATOCRIT 53.6 % (42.0-52.0); IMMATURE GRAN ABSOLUTE AUTO 0.02 K/mm3 (0.00-0.05); IMMATURE GRAN PERCENT AUTO 0.4 % (0.0-0.4); LYMPHOCYTES ABSOLUTE AUTO 2.4 K/mm3 (1.0-4.8); LYMPHOCYTES PERCENT AUTO 53.4 % (24.0-44.0); MEAN CORPUSCULAR HEMOGLOBIN 28.5 pg (28.0-32.0); MEAN CORPUSCULAR HGB CONC 32.8 g/dl (32.0-36.0); MEAN CORPUSCULAR VOLUME 86.7 fl (83.0-99.0); MEAN PLATELET VOLUME 10.3 fl (9.4-12.4); MONOCYTES ABSOLUTE AUTO 0.4 K/mm3 (0.0-0.8); MONOCYTES PERCENT AUTO 8.6 % (0.0-8.0); NEUTROPHILS ABSOLUTE AUTO 1.6 K/mm3 (1.8-7.7); NEUTROPHILS PERCENT AUTO 34.3 % (41.0-71.0); PLATELET COUNT,PLT 109 K/mm3 (150-400); RED BLOOD CELL COUNT 6.18 M/mm3 (4.52-5.90); WHITE BLOOD CELL COUNT,WBC 4.53 K/mm3 (3.9-11.3)
[2023-08-02 06:26] LABS: HEMOGLOBIN 17.6 gm/dl (14.0-18.0)
[2023-08-02 06:49] LABS: ANION GAP 16.9 (5-15); BUN/CREATININE RATIO 13.3 (14-18); C-REACTIVE PROTEIN 1.6 mg/dL (<1.0); CALCIUM 9.1 mg/dL (8.5-10.1); CREATININE 0.6 mg/dL (0.7-1.3); EST CRCL DRUG DOSING (CG) 141.44 mL/min; POTASSIUM,K 4.9 mEq/L (3.5-5.1)
[2023-08-02] MEDS: Albuterol/Ipratropium 3.0-0.5 MG/3 ML Neb Soln NEB SCH ×4 (07:02→20:29)
[2023-08-02 07:06] LABS: SLIDE REVIEW ABNORMAL SMEAR
[2023-08-02] MEDS: Sodium Chloride 1 GM Tab PO SCH ×2 (09:24→20:45)
[2023-08-02] MEDS: Simethicone 80 MG Tab.Chew PO SCH ×2 (09:24→20:42)
[2023-08-02] MEDS: Sennosides 8.6 MG Tab PO SCH (09:24)
[2023-08-02] MEDS: Lacosamide 100 MG Tab PO SCH ×2 (09:25→20:41)
[2023-08-02] MEDS: Folic Acid 1 MG Tab PO SCH (09:25)
[2023-08-02] MEDS: oxyCODONE 5 MG Tab PO SCH (09:25)
[2023-08-02] MEDS: Venlafaxine 37.5 MG Cap.ER PO SCH (09:26)
[2023-08-02] MEDS: levETIRAcetam 500 MG Tab PO SCH ×2 (09:26→20:42)
[2023-08-02] MEDS: Metoprolol Tartrate 25 MG Tab PO SCH ×2 (09:26→20:42)
[2023-08-02] MEDS: atorvaSTATin 40 MG Tab PO SCH (09:26)
[2023-08-02] MEDS: Cholecalciferol (Vitamin D3) 25 MCG Tab PO SCH (09:26)
[2023-08-02] MEDS: Thiamine 100 MG Tab PO SCH (09:26)
[2023-08-02] MEDS: Venlafaxine 75 MG Cap.ER PO SCH (09:27)
[2023-08-02] MEDS: Carboxymethylcellulose Sodium 1% Ophth Gel 15 ML Bottle EYEBOTH SCH ×3 (09:28→20:44)
[2023-08-02] MEDS: hydrOXYzine HCl 25 MG Tab PO SCH ×2 (09:28→20:40)
[2023-08-02] MEDS: Divalproex Sodium Delayed-Release 500 MG Tab.CR PO SCH ×2 (09:28→20:41)
[2023-08-02] MEDS: Clotrimazole 1% Crm 30 GM Tube TOP SCH ×2 (09:29→20:44)
[2023-08-02] MEDS: Levofloxacin 750 MG Tab PO SCH (12:43)
[2023-08-02] MEDS: Enoxaparin 40 MG/0.4 ML Syringe SUBCUT SCH (15:27)
[2023-08-02] MEDS: QUEtiapine 100 MG Tab PO SCH (20:41)
[2023-08-02] MEDS: Benztropine 1 MG Tab PO SCH (20:43)
[2023-08-03] MEDS: Albuterol/Ipratropium 3.0-0.5 MG/3 ML Neb Soln NEB SCH ×4 (07:02→20:20)
[2023-08-03] MEDS: Cholecalciferol (Vitamin D3) 25 MCG Tab PO SCH (08:22)
[2023-08-03] MEDS: Simethicone 80 MG Tab.Chew PO SCH ×2 (08:22→21:22)
[2023-08-03] MEDS: Lacosamide 100 MG Tab PO SCH ×2 (08:23→21:21)
[2023-08-03] MEDS: Venlafaxine 75 MG Cap.ER PO SCH (08:23)
[2023-08-03] MEDS: Thiamine 100 MG Tab PO SCH (08:23)
[2023-08-03] MEDS: Sennosides 8.6 MG Tab PO SCH (08:23)
[2023-08-03] MEDS: atorvaSTATin 40 MG Tab PO SCH (08:24)
[2023-08-03] MEDS: Metoprolol Tartrate 25 MG Tab PO SCH ×2 (08:24→21:23)
[2023-08-03] MEDS: hydrOXYzine HCl 25 MG Tab PO SCH ×2 (08:24→21:21)
[2023-08-03] MEDS: Sodium Chloride 1 GM Tab PO SCH ×2 (08:24→21:20)
[2023-08-03] MEDS: Divalproex Sodium Delayed-Release 500 MG Tab.CR PO SCH ×2 (08:25→21:20)
[2023-08-03] MEDS: Folic Acid 1 MG Tab PO SCH (08:25)
[2023-08-03] MEDS: Venlafaxine 37.5 MG Cap.ER PO SCH (08:25)
[2023-08-03] MEDS: levETIRAcetam 500 MG Tab PO SCH ×2 (08:25→21:19)
[2023-08-03] MEDS: oxyCODONE 5 MG Tab PO SCH (08:25)
[2023-08-03] MEDS: Carboxymethylcellulose Sodium 1% Ophth Gel 15 ML Bottle EYEBOTH SCH ×3 (08:26→21:25)
[2023-08-03] MEDS: Clotrimazole 1% Crm 30 GM Tube TOP SCH ×2 (08:26→21:24)
[2023-08-03] MEDS: Levofloxacin 750 MG Tab PO SCH (11:40)
[2023-08-03] MEDS: Enoxaparin 40 MG/0.4 ML Syringe SUBCUT SCH (15:40)
[2023-08-03] MEDS: QUEtiapine 100 MG Tab PO SCH (21:21)
[2023-08-03] MEDS: Benztropine 1 MG Tab PO SCH (21:22)
[2023-08-04] MEDS: Albuterol/Ipratropium 3.0-0.5 MG/3 ML Neb Soln NEB SCH ×2 (06:27→08:59)
[2023-08-04] MEDS: Carboxymethylcellulose Sodium 1% Ophth Gel 15 ML Bottle EYEBOTH SCH ×3 (08:31→20:27)
[2023-08-04] MEDS: hydrOXYzine HCl 25 MG Tab PO SCH ×2 (08:32→20:25)
[2023-08-04] MEDS: Cholecalciferol (Vitamin D3) 25 MCG Tab PO SCH (08:32)
[2023-08-04] MEDS: Divalproex Sodium Delayed-Release 500 MG Tab.CR PO SCH ×2 (08:32→20:23)
[2023-08-04] MEDS: Clotrimazole 1% Crm 30 GM Tube TOP SCH ×2 (08:32→20:27)
[2023-08-04] MEDS: Simethicone 80 MG Tab.Chew PO SCH ×2 (08:32→20:23)
[2023-08-04] MEDS: oxyCODONE 5 MG Tab PO SCH (08:33)
[2023-08-04] MEDS: levETIRAcetam 500 MG Tab PO SCH ×2 (08:33→20:23)
[2023-08-04] MEDS: Venlafaxine 75 MG Cap.ER PO SCH (08:33)
[2023-08-04] MEDS: Folic Acid 1 MG Tab PO SCH (08:33)
[2023-08-04] MEDS: atorvaSTATin 40 MG Tab PO SCH (08:34)
[2023-08-04] MEDS: Venlafaxine 37.5 MG Cap.ER PO SCH (08:34)
[2023-08-04] MEDS: Metoprolol Tartrate 25 MG Tab PO SCH ×2 (08:34→20:25)
[2023-08-04] MEDS: Acetaminophen 325 MG Tab PO PRN (08:34)
[2023-08-04] MEDS: Sodium Chloride 1 GM Tab PO SCH ×2 (08:34→20:23)
[2023-08-04] MEDS: Thiamine 100 MG Tab PO SCH (08:34)
[2023-08-04] MEDS: Sennosides 8.6 MG Tab PO SCH (08:35)
[2023-08-04] MEDS: Lacosamide 100 MG Tab PO SCH ×2 (08:35→20:23)
[2023-08-04] MEDS: Lidocaine 4% 1 each Patch TOP PRN (08:46)
[2023-08-04] MEDS ORDERED: Albuterol/Ipratropium 3.0-0.5 MG/3 ML Neb Soln NEB PRN (10:07)
[2023-08-04] MEDS: Levofloxacin 750 MG Tab PO SCH (11:01)
[2023-08-04] MEDS: Enoxaparin 40 MG/0.4 ML Syringe SUBCUT SCH (14:26)
[2023-08-04] MEDS: QUEtiapine 100 MG Tab PO SCH (20:22)
[2023-08-04] MEDS: Benztropine 1 MG Tab PO SCH (20:23)
[2023-08-05] MEDS: Lidocaine 4% 1 each Patch TOP PRN (08:38)
[2023-08-05] MEDS: Sennosides 8.6 MG Tab PO SCH (08:38)
[2023-08-05] MEDS: Sodium Chloride 1 GM Tab PO SCH ×2 (08:38→20:09)
[2023-08-05] MEDS: Acetaminophen 325 MG Tab PO PRN (08:38)
[2023-08-05] MEDS: Venlafaxine 75 MG Cap.ER PO SCH (08:38)
[2023-08-05] MEDS: Lacosamide 100 MG Tab PO SCH ×2 (08:38→20:05)
[2023-08-05] MEDS: Simethicone 80 MG Tab.Chew PO SCH ×2 (08:39→20:05)
[2023-08-05] MEDS: levETIRAcetam 500 MG Tab PO SCH ×2 (08:39→20:05)
[2023-08-05] MEDS: hydrOXYzine HCl 25 MG Tab PO SCH ×2 (08:39→20:08)
[2023-08-05] MEDS: Divalproex Sodium Delayed-Release 500 MG Tab.CR PO SCH ×2 (08:39→20:05)
[2023-08-05] MEDS: Cholecalciferol (Vitamin D3) 25 MCG Tab PO SCH (08:39)
[2023-08-05] MEDS: Metoprolol Tartrate 25 MG Tab PO SCH ×2 (08:40→20:09)
[2023-08-05] MEDS: Thiamine 100 MG Tab PO SCH (08:40)
[2023-08-05] MEDS: atorvaSTATin 40 MG Tab PO SCH (08:40)
[2023-08-05] MEDS: Folic Acid 1 MG Tab PO SCH (08:40)
[2023-08-05] MEDS: Venlafaxine 37.5 MG Cap.ER PO SCH (08:40)
[2023-08-05] MEDS: oxyCODONE 5 MG Tab PO SCH (08:40)
[2023-08-05] MEDS: Clotrimazole 1% Crm 30 GM Tube TOP SCH ×2 (08:41→20:09)
[2023-08-05] MEDS: Carboxymethylcellulose Sodium 1% Ophth Gel 15 ML Bottle EYEBOTH SCH ×3 (08:41→20:10)
[2023-08-05] MEDS: Enoxaparin 40 MG/0.4 ML Syringe SUBCUT SCH (14:33)
[2023-08-05] MEDS: QUEtiapine 100 MG Tab PO SCH (20:05)
[2023-08-05] MEDS: Benztropine 1 MG Tab PO SCH ×2 (20:06→20:07)
[2023-08-06] MEDS: Lidocaine 4% 1 each Patch TOP PRN (08:28)
[2023-08-06] MEDS: Sennosides 8.6 MG Tab PO SCH (08:28)
[2023-08-06] MEDS: hydrOXYzine HCl 25 MG Tab PO SCH ×2 (08:28→20:35)
[2023-08-06] MEDS: Clotrimazole 1% Crm 30 GM Tube TOP SCH ×2 (08:28→20:38)
[2023-08-06] MEDS: Carboxymethylcellulose Sodium 1% Ophth Gel 15 ML Bottle EYEBOTH SCH ×3 (08:28→20:34)
[2023-08-06] MEDS: Venlafaxine 37.5 MG Cap.ER PO SCH (08:29)
[2023-08-06] MEDS: Folic Acid 1 MG Tab PO SCH (08:29)
[2023-08-06] MEDS: levETIRAcetam 500 MG Tab PO SCH ×2 (08:29→20:34)
[2023-08-06] MEDS: Divalproex Sodium Delayed-Release 500 MG Tab.CR PO SCH ×2 (08:29→20:36)
[2023-08-06] MEDS: atorvaSTATin 40 MG Tab PO SCH (08:29)
[2023-08-06] MEDS: Venlafaxine 75 MG Cap.ER PO SCH (08:29)
[2023-08-06] MEDS: Simethicone 80 MG Tab.Chew PO SCH ×2 (08:29→20:35)
[2023-08-06] MEDS: oxyCODONE 5 MG Tab PO SCH (08:29)
[2023-08-06] MEDS: Lacosamide 100 MG Tab PO SCH ×2 (08:29→20:36)
[2023-08-06] MEDS: Cholecalciferol (Vitamin D3) 25 MCG Tab PO SCH (08:30)
[2023-08-06] MEDS: Sodium Chloride 1 GM Tab PO SCH ×2 (08:30→20:37)
[2023-08-06] MEDS: Thiamine 100 MG Tab PO SCH (08:30)
[2023-08-06] MEDS: Metoprolol Tartrate 25 MG Tab PO SCH ×2 (08:30→20:38)
[2023-08-06] MEDS: Enoxaparin 40 MG/0.4 ML Syringe SUBCUT SCH (14:11)
[2023-08-06] MEDS: QUEtiapine 100 MG Tab PO SCH (20:37)
[2023-08-06] MEDS: Benztropine 1 MG Tab PO SCH (20:37)
[2023-08-07] MEDS: Sodium Chloride 1 GM Tab PO SCH ×2 (10:11→21:40)
[2023-08-07] MEDS: Lacosamide 100 MG Tab PO SCH ×2 (10:11→21:40)
[2023-08-07] MEDS: Divalproex Sodium Delayed-Release 500 MG Tab.CR PO SCH ×2 (10:12→21:41)
[2023-08-07] MEDS: Venlafaxine 75 MG Cap.ER PO SCH (10:12)
[2023-08-07] MEDS: atorvaSTATin 40 MG Tab PO SCH (10:12)
[2023-08-07] MEDS: Thiamine 100 MG Tab PO SCH (10:13)
[2023-08-07] MEDS: Folic Acid 1 MG Tab PO SCH (10:13)
[2023-08-07] MEDS: oxyCODONE 5 MG Tab PO SCH (10:13)
[2023-08-07] MEDS: Venlafaxine 37.5 MG Cap.ER PO SCH (10:16)
[2023-08-07] MEDS: hydrOXYzine HCl 25 MG Tab PO SCH ×2 (10:17→21:39)
[2023-08-07] MEDS: Cholecalciferol (Vitamin D3) 25 MCG Tab PO SCH (10:18)
[2023-08-07] MEDS: levETIRAcetam 500 MG Tab PO SCH ×2 (10:18→21:44)
[2023-08-07] MEDS: Simethicone 80 MG Tab.Chew PO SCH ×2 (10:18→21:41)
[2023-08-07] MEDS: Sennosides 8.6 MG Tab PO SCH (10:19)
[2023-08-07] MEDS: Metoprolol Tartrate 25 MG Tab PO SCH ×2 (10:19→21:41)
[2023-08-07] MEDS: Clotrimazole 1% Crm 30 GM Tube TOP SCH ×2 (10:21→21:54)
[2023-08-07] MEDS: Carboxymethylcellulose Sodium 1% Ophth Gel 15 ML Bottle EYEBOTH SCH ×3 (10:21→21:55)
[2023-08-07] MEDS: Enoxaparin 40 MG/0.4 ML Syringe SUBCUT SCH (14:40)
[2023-08-07] MEDS: Benztropine 1 MG Tab PO SCH (21:41)
[2023-08-07] MEDS: QUEtiapine 100 MG Tab PO SCH (21:50)
[2023-08-08] MEDS: Simethicone 80 MG Tab.Chew PO SCH ×2 (10:15→20:40)
[2023-08-08] MEDS: Divalproex Sodium Delayed-Release 500 MG Tab.CR PO SCH ×2 (10:16→20:41)
[2023-08-08] MEDS: levETIRAcetam 500 MG Tab PO SCH ×2 (10:17→20:38)
[2023-08-08] MEDS: Venlafaxine 75 MG Cap.ER PO SCH (10:17)
[2023-08-08] MEDS: Sennosides 8.6 MG Tab PO SCH (10:17)
[2023-08-08] MEDS: Sodium Chloride 1 GM Tab PO SCH ×2 (10:18→20:37)
[2023-08-08] MEDS: Thiamine 100 MG Tab PO SCH (10:18)
[2023-08-08] MEDS: Metoprolol Tartrate 25 MG Tab PO SCH ×2 (10:18→20:38)
[2023-08-08] MEDS: hydrOXYzine HCl 25 MG Tab PO SCH ×2 (10:18→20:38)
[2023-08-08] MEDS: Cholecalciferol (Vitamin D3) 25 MCG Tab PO SCH (10:18)
[2023-08-08] MEDS: atorvaSTATin 40 MG Tab PO SCH (10:18)
[2023-08-08] MEDS: Folic Acid 1 MG Tab PO SCH (10:18)
[2023-08-08] MEDS: oxyCODONE 5 MG Tab PO SCH (10:19)
[2023-08-08] MEDS: Venlafaxine 37.5 MG Cap.ER PO SCH (10:19)
[2023-08-08] MEDS: Clotrimazole 1% Crm 30 GM Tube TOP SCH ×2 (10:20→20:42)
[2023-08-08] MEDS: Carboxymethylcellulose Sodium 1% Ophth Gel 15 ML Bottle EYEBOTH SCH ×3 (10:20→20:42)
[2023-08-08] MEDS: Lacosamide 100 MG Tab PO SCH ×2 (10:21→20:39)
[2023-08-08] MEDS: Enoxaparin 40 MG/0.4 ML Syringe SUBCUT SCH (14:38)
[2023-08-08] MEDS: Benztropine 1 MG Tab PO SCH (20:38)
[2023-08-08] MEDS: QUEtiapine 100 MG Tab PO SCH (20:39)
[2023-08-09] MEDS: Venlafaxine 75 MG Cap.ER PO SCH (10:30)
[2023-08-09] MEDS: Thiamine 100 MG Tab PO SCH (10:30)
[2023-08-09] MEDS: Lacosamide 100 MG Tab PO SCH ×2 (10:30→20:35)
[2023-08-09] MEDS: Sennosides 8.6 MG Tab PO SCH (10:31)
[2023-08-09] MEDS: levETIRAcetam 500 MG Tab PO SCH ×2 (10:31→20:34)
[2023-08-09] MEDS: Sodium Chloride 1 GM Tab PO SCH ×2 (10:31→20:34)
[2023-08-09] MEDS: atorvaSTATin 40 MG Tab PO SCH (10:32)
[2023-08-09] MEDS: Metoprolol Tartrate 25 MG Tab PO SCH ×2 (10:32→20:37)
[2023-08-09] MEDS: Divalproex Sodium Delayed-Release 500 MG Tab.CR PO SCH ×2 (10:32→20:35)
[2023-08-09] MEDS: Simethicone 80 MG Tab.Chew PO SCH ×2 (10:33→20:38)
[2023-08-09] MEDS: Venlafaxine 37.5 MG Cap.ER PO SCH (10:33)
[2023-08-09] MEDS: Folic Acid 1 MG Tab PO SCH (10:33)
[2023-08-09] MEDS: hydrOXYzine HCl 25 MG Tab PO SCH ×2 (10:33→20:38)
[2023-08-09] MEDS: Cholecalciferol (Vitamin D3) 25 MCG Tab PO SCH (10:33)
[2023-08-09] MEDS: oxyCODONE 5 MG Tab PO SCH (10:34)
[2023-08-09] MEDS: Carboxymethylcellulose Sodium 1% Ophth Gel 15 ML Bottle EYEBOTH SCH ×3 (10:46→20:39)
[2023-08-09] MEDS: Clotrimazole 1% Crm 30 GM Tube TOP SCH ×2 (10:46→20:38)
[2023-08-09] MEDS: Enoxaparin 40 MG/0.4 ML Syringe SUBCUT SCH (14:33)
[2023-08-09] MEDS: Benztropine 1 MG Tab PO SCH (20:35)
[2023-08-09] MEDS: QUEtiapine 100 MG Tab PO SCH (20:37)
[2023-08-10] MEDS: Lidocaine 4% 1 each Patch TOP PRN (08:59)
[2023-08-10] MEDS: Lacosamide 100 MG Tab PO SCH ×2 (09:02→20:54)
[2023-08-10] MEDS: oxyCODONE 5 MG Tab PO SCH (09:02)
[2023-08-10] MEDS: Divalproex Sodium Delayed-Release 500 MG Tab.CR PO SCH ×2 (09:31→20:53)
[2023-08-10] MEDS: atorvaSTATin 40 MG Tab PO SCH (09:31)
[2023-08-10] MEDS: Folic Acid 1 MG Tab PO SCH (09:31)
[2023-08-10] MEDS: Simethicone 80 MG Tab.Chew PO SCH ×2 (09:31→20:54)
[2023-08-10] MEDS: Venlafaxine 37.5 MG Cap.ER PO SCH (09:31)
[2023-08-10] MEDS: Sodium Chloride 1 GM Tab PO SCH ×2 (09:33→20:55)
[2023-08-10] MEDS: levETIRAcetam 500 MG Tab PO SCH ×2 (09:33→20:54)
[2023-08-10] MEDS: Thiamine 100 MG Tab PO SCH (09:33)
[2023-08-10] MEDS: Venlafaxine 75 MG Cap.ER PO SCH (09:33)
[2023-08-10] MEDS: Sennosides 8.6 MG Tab PO SCH (09:34)
[2023-08-10] MEDS: Metoprolol Tartrate 25 MG Tab PO SCH ×2 (09:34→20:52)
[2023-08-10] MEDS: Cholecalciferol (Vitamin D3) 25 MCG Tab PO SCH (09:34)
[2023-08-10] MEDS: hydrOXYzine HCl 25 MG Tab PO SCH ×2 (09:34→20:55)
[2023-08-10] MEDS: Clotrimazole 1% Crm 30 GM Tube TOP SCH ×2 (09:37→20:56)
[2023-08-10] MEDS: Carboxymethylcellulose Sodium 1% Ophth Gel 15 ML Bottle EYEBOTH SCH ×3 (09:37→20:56)
[2023-08-10] MEDS: Enoxaparin 40 MG/0.4 ML Syringe SUBCUT SCH (16:06)
[2023-08-10] MEDS: Benztropine 1 MG Tab PO SCH (20:53)
[2023-08-10] MEDS: QUEtiapine 100 MG Tab PO SCH (20:55)
[2023-08-11] MEDS: Sodium Chloride 1 GM Tab PO SCH ×2 (08:44→20:57)
[2023-08-11] MEDS: Divalproex Sodium Delayed-Release 500 MG Tab.CR PO SCH ×2 (08:44→20:57)
[2023-08-11] MEDS: Cholecalciferol (Vitamin D3) 25 MCG Tab PO SCH (08:44)
[2023-08-11] MEDS: Sennosides 8.6 MG Tab PO SCH (08:44)
[2023-08-11] MEDS: levETIRAcetam 500 MG Tab PO SCH ×2 (08:44→20:57)
[2023-08-11] MEDS: Simethicone 80 MG Tab.Chew PO SCH ×2 (08:45→20:57)
[2023-08-11] MEDS: Metoprolol Tartrate 25 MG Tab PO SCH ×2 (08:45→20:58)
[2023-08-11] MEDS: Venlafaxine 75 MG Cap.ER PO SCH (08:46)
[2023-08-11] MEDS: Lacosamide 100 MG Tab PO SCH ×2 (08:46→20:58)
[2023-08-11] MEDS: Folic Acid 1 MG Tab PO SCH (08:46)
[2023-08-11] MEDS: hydrOXYzine HCl 25 MG Tab PO SCH ×2 (08:46→20:58)
[2023-08-11] MEDS: atorvaSTATin 40 MG Tab PO SCH (08:46)
[2023-08-11] MEDS: Venlafaxine 37.5 MG Cap.ER PO SCH (08:46)
[2023-08-11] MEDS: oxyCODONE 5 MG Tab PO SCH (08:47)
[2023-08-11] MEDS: Clotrimazole 1% Crm 30 GM Tube TOP SCH ×2 (08:48→20:56)
[2023-08-11] MEDS: Thiamine 100 MG Tab PO SCH (08:48)
[2023-08-11] MEDS: Carboxymethylcellulose Sodium 1% Ophth Gel 15 ML Bottle EYEBOTH SCH ×3 (08:48→20:56)
[2023-08-11] MEDS: Enoxaparin 40 MG/0.4 ML Syringe SUBCUT SCH (15:15)
[2023-08-11] MEDS: Benztropine 1 MG Tab PO SCH (20:57)
[2023-08-11] MEDS: QUEtiapine 100 MG Tab PO SCH (20:58)
[2023-08-12] MEDS: Lidocaine 4% 1 each Patch TOP PRN (08:13)
[2023-08-12] MEDS: Clotrimazole 1% Crm 30 GM Tube TOP SCH ×2 (08:13→20:34)
[2023-08-12] MEDS: Carboxymethylcellulose Sodium 1% Ophth Gel 15 ML Bottle EYEBOTH SCH ×3 (08:13→20:33)
[2023-08-12] MEDS: Simethicone 80 MG Tab.Chew PO SCH ×2 (08:14→20:53)
[2023-08-12] MEDS: Divalproex Sodium Delayed-Release 500 MG Tab.CR PO SCH ×2 (08:14→20:36)
[2023-08-12] MEDS: levETIRAcetam 500 MG Tab PO SCH ×2 (08:15→20:52)
[2023-08-12] MEDS: Venlafaxine 75 MG Cap.ER PO SCH (08:15)
[2023-08-12] MEDS: Sennosides 8.6 MG Tab PO SCH (08:15)
[2023-08-12] MEDS: hydrOXYzine HCl 25 MG Tab PO SCH ×2 (08:16→20:53)
[2023-08-12] MEDS: oxyCODONE 5 MG Tab PO SCH (08:16)
[2023-08-12] MEDS: Venlafaxine 37.5 MG Cap.ER PO SCH (08:16)
[2023-08-12] MEDS: atorvaSTATin 40 MG Tab PO SCH (08:16)
[2023-08-12] MEDS: Folic Acid 1 MG Tab PO SCH (08:16)
[2023-08-12] MEDS: Thiamine 100 MG Tab PO SCH (08:16)
[2023-08-12] MEDS: Cholecalciferol (Vitamin D3) 25 MCG Tab PO SCH (08:16)
[2023-08-12] MEDS: Sodium Chloride 1 GM Tab PO SCH ×2 (08:17→20:53)
[2023-08-12] MEDS: Lacosamide 100 MG Tab PO SCH ×2 (08:17→20:36)
[2023-08-12] MEDS: Metoprolol Tartrate 25 MG Tab PO SCH ×2 (08:19→20:36)
[2023-08-12] MEDS: Enoxaparin 40 MG/0.4 ML Syringe SUBCUT SCH (14:08)
[2023-08-12] MEDS: Acetaminophen 325 MG Tab PO PRN (20:35)
[2023-08-12] MEDS: QUEtiapine 100 MG Tab PO SCH (20:53)
[2023-08-12] MEDS: Benztropine 1 MG Tab PO SCH (20:53)
[2023-08-13] MEDS: levETIRAcetam 500 MG Tab PO SCH ×2 (08:06→20:29)
[2023-08-13] MEDS: Cholecalciferol (Vitamin D3) 25 MCG Tab PO SCH (08:06)
[2023-08-13] MEDS: Sennosides 8.6 MG Tab PO SCH (08:06)
[2023-08-13] MEDS: Simethicone 80 MG Tab.Chew PO SCH ×2 (08:06→20:30)
[2023-08-13] MEDS: atorvaSTATin 40 MG Tab PO SCH (08:06)
[2023-08-13] MEDS: Divalproex Sodium Delayed-Release 500 MG Tab.CR PO SCH ×2 (08:07→20:28)
[2023-08-13] MEDS: Sodium Chloride 1 GM Tab PO SCH ×2 (08:07→20:30)
[2023-08-13] MEDS: Venlafaxine 75 MG Cap.ER PO SCH (08:07)
[2023-08-13] MEDS: oxyCODONE 5 MG Tab PO SCH (08:07)
[2023-08-13] MEDS: Thiamine 100 MG Tab PO SCH (08:07)
[2023-08-13] MEDS: Metoprolol Tartrate 25 MG Tab PO SCH ×2 (08:08→20:36)
[2023-08-13] MEDS: Venlafaxine 37.5 MG Cap.ER PO SCH (08:08)
[2023-08-13] MEDS: hydrOXYzine HCl 25 MG Tab PO SCH ×2 (08:08→20:30)
[2023-08-13] MEDS: Folic Acid 1 MG Tab PO SCH (08:08)
[2023-08-13] MEDS: Lacosamide 100 MG Tab PO SCH ×2 (08:08→20:29)
[2023-08-13] MEDS: Clotrimazole 1% Crm 30 GM Tube TOP SCH ×2 (08:10→20:32)
[2023-08-13] MEDS: Carboxymethylcellulose Sodium 1% Ophth Gel 15 ML Bottle EYEBOTH SCH ×3 (08:11→20:33)
[2023-08-13] MEDS: Enoxaparin 40 MG/0.4 ML Syringe SUBCUT SCH (15:29)
[2023-08-13] MEDS: QUEtiapine 100 MG Tab PO SCH (20:30)
[2023-08-13] MEDS: Benztropine 1 MG Tab PO SCH (20:31)
[2023-08-13 20:37] VITALS: BP 127/103
[2023-08-13 20:55] VITALS: PULSE 88
== END 2023-08-13 23:59 | disposition home or self-care (01) | DRG 885 ==
LOC: MERGE 21:31 → JD.ED 21:31 → JD.MS 09-24 20:38
PROVIDERS: ADMIT Internal Medicine; ATTEND Internal Medicine
PROC: 0JQ03ZZ Repair Scalp Subcutaneous Tissue and Fascia, Percutaneous Approach (ICD-10-PCS; principal; 2022-11-17)
PROC: 4A133R1 Monitoring of Arterial Saturation, Peripheral, Percutaneous Approach (ICD-10-PCS; 2022-12-13)
DX: F91.8 Other conduct disorders (principal); F31.60 Bipolar disorder, current episode mixed, unspecified; J18.9 Pneumonia, unspecified organism; S52.612A Displaced fracture of left ulna styloid process, initial encounter for closed fracture; S52.502A Unspecified fracture of the lower end of left radius, initial encounter for closed fracture; S06.9XAA Unspecified intracranial injury with loss of consciousness status unknown, initial encounter; I69.354 Hemiplegia and hemiparesis following cerebral infarction affecting left non-dominant side; K92.1 Melena; T76.21XA Adult sexual abuse, suspected, initial encounter; I10 Essential (primary) hypertension; R31.9 Hematuria, unspecified; E78.00 Pure hypercholesterolemia, unspecified; D69.6 Thrombocytopenia, unspecified; E87.6 Hypokalemia; G89.29 Other chronic pain; G93.89 Other specified disorders of brain; R29.704 NIHSS score 4; L01.00 Impetigo, unspecified; R29.810 Facial weakness; K64.9 Unspecified hemorrhoids; G40.909 Epilepsy, unspecified, not intractable, without status epilepticus; E83.42 Hypomagnesemia; F10.21 Alcohol dependence, in remission; Z91.199 Patient's noncompliance with other medical treatment and regimen due to unspecified reason; F41.9 Anxiety disorder, unspecified; S01.91XA Laceration without foreign body of unspecified part of head, initial encounter; R09.02 Hypoxemia; Z60.9 Problem related to social environment, unspecified; R32 Unspecified urinary incontinence; W19.XXXA Unspecified fall, initial encounter; F07.81 Postconcussional syndrome; M54.9 Dorsalgia, unspecified; E78.1 Pure hyperglyceridemia; G47.00 Insomnia, unspecified; D64.9 Anemia, unspecified; Z98.890 Other specified postprocedural states; Z87.820 Personal history of traumatic brain injury; Z93.0 Tracheostomy status; Z88.8 Allergy status to other drugs, medicaments and biological substances; Z98.1 Arthrodesis status; Z90.5 Acquired absence of kidney; Z11.52 Encounter for screening for COVID-19
CPT/HCPCS: 0240U; 0241U; 36415; 36600; 70450; 70496; 70498; 70551; 71045; 71046; 71275; 73100; 73110; 80048; 80053; 80061; 80307; 81001; 82306; 82607; 82746; 82803; 82947; 83735; 84425; 84443; 84484; 85025; 85027; 85610; 85730; 86140; 87081; 87641; 90471; 90686; 92523; 93005; 94640; 94660; 94667; 94668; 94760; 94761; 97110; 97116; 97140; 97162; 97165; 97166; 97530; 99285; 90792-GT; 99222; 99231; 99232; 99283; A9270-GY; G0008; J0456; J0696; J1650; J2543; J3475; J3490; J7030; J7050; J7620-GY; Q3014; Q9967

== ENCOUNTER 2023-08-14 00:01 | Inpatient (IN) | payer MEDICAID ==
[2023-08-13] MEDS: hydrOXYzine HCl 25 MG Tab PO SCH (15:13)
[2023-08-13] MEDS: Benztropine 1 MG Tab PO SCH (15:13)
[2023-08-13] MEDS: levETIRAcetam 500 MG Tab PO SCH (15:14)
[2023-08-13] MEDS: Metoprolol Tartrate 25 MG Tab PO SCH (15:14)
[2023-08-13] MEDS: Divalproex Sodium Delayed-Release 500 MG Tab.CR PO SCH (15:14)
[2023-08-13] MEDS: Clotrimazole 1% Crm 30 GM Tube TOP SCH (15:14)
[2023-08-13] MEDS: Carboxymethylcellulose Sodium 1% Ophth Gel 15 ML Bottle EYEBOTH SCH (15:15)
[2023-08-13] MEDS: QUEtiapine 100 MG Tab PO SCH (15:15)
[2023-08-13] MEDS: Simethicone 80 MG Tab.Chew PO SCH (15:53)
[2023-08-13] MEDS: Lacosamide 100 MG Tab PO SCH (15:53)
[2023-08-13] MEDS: Sodium Chloride 1 GM Tab PO SCH (15:53)
[2023-08-13] MEDS: Folic Acid 1 MG Tab PO SCH (15:54)
[2023-08-13] MEDS: Venlafaxine 75 MG Cap.ER PO SCH (15:54)
[2023-08-13] MEDS: Enoxaparin 40 MG/0.4 ML Syringe SUBCUT SCH (15:54)
[2023-08-13] MEDS: oxyCODONE 5 MG Tab PO SCH (15:54)
[2023-08-13] MEDS: Venlafaxine 37.5 MG Cap.ER PO SCH (15:54)
[2023-08-13] MEDS: Cholecalciferol (Vitamin D3) 25 MCG Tab PO SCH (15:54)
[2023-08-13] MEDS: Thiamine 100 MG Tab PO SCH (15:54)
[2023-08-13] MEDS: Sennosides 8.6 MG Tab PO SCH (15:54)
[2023-08-13] MEDS: atorvaSTATin 40 MG Tab PO SCH (15:54)
[2023-08-13] MEDS: Sodium Chloride 0.9% 10 ML Syringe FLUSH SCH (15:55)
[~2023-08-14 00:01] MED LIST changes: +Albuterol 0.083% 2.5 MG/3 ML Neb Soln NEB PRN; +Albuterol/Ipratropium 3.0-0.5 MG/3 ML Neb Soln NEB PRN; +Aluminum Hydroxide/Magnesium Hydroxide/Simethicone Susp 30 ML Cup PO PRN; +Hydrocortisone Acetate 25 MG Supp RECTAL PRN; +LORazepam 0.5 MG Tab PO PRN; -Lactated Ringers 1,000 ML IV SCH; -Lidocaine 1% 4 ML ONE; -Lidocaine 1%/Sod Bicarbonate in NS 8.4% 1 ML Syringe IDERM PRN; +Polyethylene Glycol 3350 Powder 17 GM Packet PO PRN; -Propofol 200 MG/20 ML SDV ONE; +Sennosides 8.6 MG Tab PO PRN; -Sodium Chloride 0.9% 10 ML Syringe FLUSH SCH
[2023-08-18] MEDS: Acetaminophen 325 MG Tab PO PRN (09:28)
[2023-08-19] MEDS: Lidocaine 4% 1 each Patch TOP PRN (09:07)
[2023-08-20] MEDS: QUEtiapine 25 MG Tab PO SCH (16:29)
[2023-08-20] MEDS: QUEtiapine 100 MG Tab PO SCH (20:57)
[2023-08-21] MEDS: Carboxymethylcellulose Sodium 1% Ophth Gel 15 ML Bottle EYEBOTH PRN (20:20)
[2023-08-24] MEDS: Sodium Chloride 1 GM Tab PO ONE (21:36)
[2023-08-25] MEDS: Enoxaparin 40 MG/0.4 ML Syringe SUBCUT SCH (15:58)
[2023-09-03 18:52] VITALS: BP 116/67; PULSE 102
== END 2023-09-03 18:00 | DRG 885 ==
LOC: JD.MS 00:01
PROVIDERS: ADMIT Internal Medicine; ATTEND Internal Medicine
DX: F31.60 Bipolar disorder, current episode mixed, unspecified (principal); I69.954 Hemiplegia and hemiparesis following unspecified cerebrovascular disease affecting left non-dominant side; F10.20 Alcohol dependence, uncomplicated; G40.909 Epilepsy, unspecified, not intractable, without status epilepticus; M54.9 Dorsalgia, unspecified; G89.29 Other chronic pain; I10 Essential (primary) hypertension; E78.1 Pure hyperglyceridemia; K64.9 Unspecified hemorrhoids; D69.6 Thrombocytopenia, unspecified; R31.9 Hematuria, unspecified; G47.30 Sleep apnea, unspecified; Z87.820 Personal history of traumatic brain injury; Z87.891 Personal history of nicotine dependence
CPT/HCPCS: 94668; 94760; 94761; 97116-GP; 97530-GP; 99231; 99232; 99239; A9270-GY; J1650; Q3014